=== PATIENT | male | born 1965 | race Caucasian/White ===

== ENCOUNTER 2021-08-01 13:05 | Inpatient (IN) | payer OTHER, SELFPAY ==
[2021-08-01] VITALS (14 sets, daily range): BP systolic 86–110; BP diastolic 43–68; PULSE 100–125; RESP 15–22; TEMP 35.7–36.7; O2SAT 91–98; BMI 41.8
--- NOTE | ~2021-08-01 | XR_ITS ---
EXAMINATION: XR CHEST CLINICAL INFORMATION: Shortness of breath COMPARISON: None TECHNIQUE: 2 views of the chest were obtained. FINDINGS: The right lung is hypoexpanded secondary to elevated right hemidiaphragm and right basilar atelectasis. The left lung is clear. The heart size is normal. No gross bony abnormality seen. XR/XR chest 2V IMPRESSION: Elevated right hemidiaphragm with right basilar atelectasis. Rest of the lungs are clear.
--- NOTE | ~2021-08-01 | US_ITS ---
EXAMINATION: US ABDOMEN LIMITED CLINICAL INFORMATION: EtOH. Ascites. Check for portal vein thrombosis.. COMPARISON: None TECHNIQUE: Real-time imaging of the right upper quadrant abdominal viscera. FINDINGS: Moderate amount of simple appearing free fluid is noted within the right upper quadrant around the liver. PANCREAS: Nonvisualized due to overlying bowel gas. LIVER: Abnormal liver, appear small, shows diffuse surface nodularity and increased echotexture, consistent with likely cirrhosis. No focal liver lesion no evidence of any biliary ductal dilatation. The portal vein is visualized and shows normal hepatopetal flow. GALLBLADDER: Collapsed. Apparent gallbladder wall thickening is present measuring 0.8 cm, given the presence of collapsed nature of the gallbladder and presence of ascites, likely within normal limits. No evidence of any gallstone. COMMON BILE DUCT: Nonvisualized likely decompressed. RIGHT KIDNEY: Normal. No hydronephrosis. No renal calculi or focal parenchymal lesions. The kidney measures 9.8 cm in maximum dimension. FREE FLUID: None. US/US abdomen limited IMPRESSION: 1. No sonographic evidence of portal vein thrombosis. 2. Abnormal liver showing features of cirrhosis. 3. Moderate amount of simple appearing free fluid within the right upper quadrant around the liver. 4. Collapsed gallbladder and decompressed biliary tree. 5. Nonvisualized pancreas.
--- NOTE | ~2021-08-01 | US_ITS ---
EXAMINATION: US ABDOMEN LIMITED CLINICAL INFORMATION: Evaluate for ascites. COMPARISON: Ultrasound abdomen limited 08/01/2021. TECHNIQUE: Real-time imaging of the right upper quadrant abdominal viscera. FINDINGS: PANCREAS: The pancreas is not well-visualized. LIVER: The liver is normal in size. The liver contour is lobulated. There is increased liver echogenicity. No focal hepatic lesion. There is no intrahepatic biliary duct dilatation seen. There is a small to moderate amount of ascites. GALLBLADDER: There is mild gallbladder wall thickening measuring 0.7 cm. The gallbladder is incompletely distended without evidence of stones, sludge, polyps, or pericholecystic fluid. COMMON BILE DUCT: Normal in caliber measuring 0.5 cm in diameter. RIGHT KIDNEY: Normal. No hydronephrosis. No renal calculi or focal parenchymal lesions. The kidney measures 12.0 cm in maximum dimension. FREE FLUID: None. US/US abdomen limited IMPRESSION: Hepatic steatosis with lobulated contour and ascites. Findings are suggestive of cirrhosis. Pancreas is not seen well. Thickened gallbladder wall without echogenic stones.
--- NOTE | ~2021-08-01 | XR_ITS ---
EXAMINATION: XR CHEST CLINICAL INFORMATION: Weakness COMPARISON: Previous chest x-ray January 2018 TECHNIQUE: Frontal view of the chest was obtained. FINDINGS: The patient is rotated to the right. There is elevation of the right hemidiaphragm and atelectasis at the right lung base. Cardiac and mediastinal contours are unremarkable. There is increased attenuation of the left lung compared to the right. It is uncertain if this is artifactual due to patient positioning or represent airspace disease or effusion. There is no pneumothorax. There are degenerative changes of the spine. There may be a dilated viscus below the left hemidiaphragm. XR/XR chest 1V IMPRESSION: Limited exam due to patient positioning. Elevated right hemidiaphragm and atelectasis at the right lung base. Diffuse increased attenuation of the left lung compared to the right, question artifactual versus due to airspace disease or effusion. Repeat chest x-ray should be considered.
--- NOTE | ~2021-08-01 | CT_ITS ---
EXAMINATION: CT HEAD WITHOUT CONTRAST CLINICAL INFORMATION: Falls. COMPARISON: Head CT 06/14/2018. TECHNIQUE: Contiguous axial imaging was performed from the skull base to vertex without intravenous administration of contrast. This CT examination was performed using dose optimization techniques as appropriate, variously including the following: *Automated exposure control *Adjustment of mA and/or kV according to patient size (this includes techniques or standardized protocols for targeted exams where dose is matched to indication/reason for exam; i.e. extremities or head) *Use of iterative reconstruction technique FINDINGS: Study is very limited by motion artifact. The motion degraded section of the intracranial compartment was rescanned. No definite acute intracranial findings accounting for artifact. No intracranial hemorrhage is appreciated. There is global cerebral volume loss and there is chronic microangiopathy. The basilar cisterns are preserved. No significant soft tissue findings. No definite acute fractures though assessment is limited by motion. CT/CT head/brain wo con IMPRESSION: Very limited motion degraded CT of the head. No definite acute intracranial findings accounting for motion artifact.
--- NOTE | ~2021-08-01 | US_ITS ---
EXAMINATION: US PARACENTESIS WITH IMAGING CLINICAL INFORMATION: Cirrhosis and ascites. COMPARISON: Previous abdominal ultrasound 08/01/2021. TECHNIQUE: Procedure and risks and benefits including bleeding, infection and low blood pressure were discussed with the patient and informed consent was obtained. The right lower quadrant was prepped and draped in the usual sterile fashion. The skin and soft tissues were anesthetized with 1% lidocaine plain. Using ultrasound guidance and a 5 Uzbek Rapid Centesis catheter, access to the ascitic fluid was obtained. 10.8 L of dark clear yellow fluid was removed. Diagnostic specimen was sent as requested by the ordering physician. The patient received 50 g of intravenous albumin during the procedure. FINDINGS: There is a large amount of ascites. US/US paracentesis abd w/image IMPRESSION: Ultrasound-guided paracentesis.
--- NOTE | ~2021-08-01 | US_ITS ---
EXAMINATION: US ULTRASOUND-GUIDED PARACENTESIS CLINICAL INFORMATION: Ascites. COMPARISON: Previous ultrasound exams from earlier this month. TECHNIQUE: Procedure and risks and benefits including bleeding, infection and low blood pressure were discussed with the patient and informed consent was obtained. The right lower quadrant was prepped and draped in the usual sterile fashion. The skin and soft tissues were anesthetized with 1% lidocaine plain. Using ultrasound guidance and a 5 Slovenian Rapid centesis catheter, access to the ascitic fluid was obtained. 8 L of yellow fluid was removed. No diagnostic specimen was sent. FINDINGS: There is a large amount of ascites. US/US paracentesis abd w/image IMPRESSION: Ultrasound-guided paracentesis.
--- NOTE | 2021-08-01 13:24 | ECG_ITS ---
Test Reason : WEAKNESS Blood Pressure : / mmHG Vent. Rate : 118 BPM Atrial Rate : 118 BPM P-R Int : 144 ms QRS Dur : 082 ms QT Int : 346 ms P-R-T Axes : 043 032 040 degrees QTc Int : 484 ms Sinus tachycardia Otherwise normal ECG When compared with ECG of 14-JUN-2018 20:05, QRS voltage has decreased Nonspecific T wave abnormality now evident in Lateral leads Referred By: Tracy Gan Electronically Signed By:JERRELL BLAIR MD
--- NOTE | 2021-08-01 13:33 | ED.AMS ---
HPI - Altered Mental Status General Chief Complaint: Altered Mental Status Stated Complaint: ?uti Time Seen by Provider: 08/01/21 13:23 Source: patient Mode of arrival: EMS Limitations: other (poor historian ) History of Present Illness HPI narrative: found on couch, 40 ounce ETOH bottles around him, can't get off couch, roommate called, covered in brown stool, dried blood in mouth - no known last well. denies falls today. states that he has had withdrawal seizures in the past MD complaint: weakness Onset (ago): unknown Severity: moderate Consistency of symptoms: unknown Context: alcohol abuse Associated symptoms: loss of appetite, malaise and weakness Related Data Home Medications Medication Instructions Recorded Confirmed folic acid 1 mg tablet 1 mg PO DAILY 08/01/21 08/01/21 lidocaine 5 % topical patch 1 patch TOPICAL DAILY 08/01/21 08/01/21 lisinopril 5 mg tablet 5 mg PO DAILY 08/01/21 08/01/21 metformin 500 mg tablet 1,000 mg PO BIDWM 08/01/21 08/01/21 omeprazole 20 mg capsule,delayed 20 mg PO DAILY@0630 08/01/21 08/01/21 release sertraline 25 mg tablet 12.5 mg DAILY 08/01/21 08/01/21 thiamine HCl (vitamin B1) 100 mg 1 tab PO DAILY 08/01/21 08/01/21 tablet Allergies Allergy/AdvReac Type Severity Reaction Status Date / Time acetaminophen [From PERCOCET] Allergy Severe AGITATION Verified 08/01/21 13:21 oxycodone [From PERCOCET] Allergy Severe AGITATION Verified 08/01/21 13:21 bee pollen [Bee Stings] Allergy Mild SWELLING Verified 08/01/21 13:21 lorazepam AdvReac Unknown AGITATION Verified 08/01/21 13:21 Review of Systems Review of Systems: Constitutional : No Fever, No Chills, pos Fatigue, pos Malaise ENT/Mouth : No sore throat, No Rhinorrhea Eyes: No Eye Pain, No Swelling, No Redness Cardiovascular : No Chest Pain, No SOB, No Dyspnea on Exertion, No Orthopnea, No Edema, No Palpitations Respiratory : No Cough, No Sputum, No Wheezing Gastrointestinal : pos Nausea, No Vomiting, No Diarrhea, No Constipation, No abdominal Pain, No Hematochezia, No Melena Genitourinary : No Dysuria, No Urinary Frequency, No Hematuria, Musculoskeletal : No joint pain, pos Myalgias, No Joint Swelling Skin : No Skin Lesions, No rash, pos change in skin color Neuro : pos Weakness, No Numbness, No Dizziness, No Headache Psych : No Anxiety/Panic, No Depression Heme/Lymph: No Bruising, No Bleeding,No Lymphadenopathy Endocrine : No Polyuria, No Polydipsia All other systems reviewed and are negative [facility] Past Medical History Attestation statement: The following information was validated with the patient. Medical History Alcohol abuse Withdrawal seizures Social History Social History Alcohol intake: current Alcohol type: beer Patient Tobacco Use Status: Current everyday Tobacco user Non Cigarette Tobacco use how long: chews tobacco Use of substances other than those prescribed or required for medical reasons: No Advance Directives: No Advance Directives Information Provided: No Physical Exam ED Vital Signs: Vital Signs - 24 hr 08/01/21 13:21 08/01/21 14:17 08/01/21 14:37 Temperature 98.0 F Pulse Rate 124 H 114 H 113 H Respiratory Rate 18 16 16 Blood Pressure 96/57 L 86/51 L 92/43 L Pulse Oximetry 96 97 95 08/01/21 15:13 08/01/21 15:48 Temperature Pulse Rate 105 H 107 H Respiratory Rate 18 18 Blood Pressure 103/49 L 100/66 Pulse Oximetry 96 BMI result Body Mass Index 41.8 Appearance: Alert. Oriented X3. Mild acute distress. Eyes: Pupils equal, round and reactive to light. Scleral icterus ENT: Pharynx very dry MM with dried brown brb in mouth but no lacerations or goodman on tongue most of blood on front teeth and gingiva Neck: Normal inspection. Neck supple. CVS: tachycardic heart rate and rhythm. Pulses normal. Respiratory: No respiratory distress. Breath sounds normal. Abdomen: Soft and non-tender. Large amount of ascites Skin: Skin warm and dry. pale jaundice skin color. Normal skin turgor. Extremities: No lower extremity edema. Scabs noted on toes and feet Neuro: Oriented X 3. No motor deficit. No sensory deficit. Course Course Course Narrative: holding lactulose at this time given guiac positive stools given ascites and presentation patient is obese - IBW is 68kg 30cc bolus = 2059 - 2500cc fluids ordered pressures responding to fluids, IV rocephin ordered, will perform diagnostic paracentesis at this time given low BPs BP improving but patient now agitated, did discuss diagnostic tap and he states no at this time. empiric ceftriaxone ordered will allow zamarripa finally given acute renal failure but it required a lot of discussion and he finally agreed message sent to GI - pending input ICU aware given BP improved does not need ICU at this time, no bleeding here H/H stable. rectal lactulose ordered MDM - Altered Mental Status MDM Narrative Medical decision making narrative: 55 yo male with hx of ETOH abuse and alcohol withdrawal seizures here with dried blood in mouth unsure if he had a seizure, covered in feces (brown) large amount of ascites states this is new no prior taps. He denies trauma. Reportedly roommate called because he could no longer get off the couch. The patient cannot tell me when he last drank. At this time labs, cultures, lactic acid, CXR, CT head for trauma, US of RUQ for PV thrombosis, IV protonix and drip type and screen ordered, initial BP low fluids ordered but patient laying on side and likely lower than actual, paracentesis diagnostic planned to rule out SBP. Will consult GI likely. Anticipate admission. Lab Data Result diagrams: 08/01/21 13:30 08/01/21 13:30 Labs: Lab Results 08/01/21 08/01/21 08/01/21 Range/Units 13:30 13:30 13:30 WBC 7.3 (4.8-10.8) X10*3/uL RBC 2.96 L (4.60-5.80) X10*6/uL Hgb 11.4 L (14.0-18.0) g/dl Hct 32.3 L (42.0-52.0) % MCV 109.1 H (80.0-98.0) fL MCH 38.5 H (27.0-33.0) pg MCHC 35.3 (31.0-36.0) g/dl RDW 16.8 H (11.0-16.0) % Plt Count 102 L (160-400) X10*3/uL MPV 10.0 (9.4-12.4) fL Immature Gran % (Auto) 0.3 (0.0-0.4) % Neut % (Auto) 72.6 (45-73) % Lymph % (Auto) 14.9 L (20-40) % [place] % (Auto) 10.7 (2-11) % Eos % (Auto) 0.8 (0-4) % Baso % (Auto) 0.7 (0-2) % Lymph # (Auto) 1.1 L (1.2-4.9) X10*3/uL [place] # (Auto) 0.8 (0.1-1.2) X10*3/uL Eos # (Auto) 0.1 (0.0-0.4) X10*3/uL Baso # (Auto) 0.1 (0.0-0.2) X10*3/uL Abs Immat Gran (auto) 0.02 (0.00-0.03) X10*3/uL Absolute Neuts (auto) 5.3 (2.0-8.3) x10*3/uL Absolute Nucleated RBC 0.000 (0.0-0.012) X10*3/uL Nucleated RBC % (auto) 0.0 (0.0-0.2) /100WBC PT (9.9-13.0) SEC INR (0.9-1.1) APTT (24.1-38.0) SEC O2 Saturation ABG pH at Pt Temp ABG pH (Temp Correct) ABG pCO2 at Pt Temp ABG pCO2 (Temp Corrct ABG pO2 at Pt Temp ABG pO2 (Temp Correct ABG HCO3 ABG Base Excess (Actual) VBG pH (7.32-7.43) VBG pCO2 mmHg VBG pO2 mmHg VBG HCO3 (22-26) mmol/L VBG O2 Saturation % VBG Base Excess mmol/L Sodium 135 (135-145) mmol/L Potassium 4.1 (3.3-5.1) mmol/L Chloride 96 (96-108) mmol/L Carbon Dioxide 25 (22-29) mmol/L Anion Gap 18 (12-20) BUN 44 H (9-16) mg/dL Creatinine 2.44 H (0.5-1.4) mg/dL Estim Creat Clear Calc 44.5 Estimated GFR 28 Random Glucose 113 (60-115) mg/dL Lactic Acid (0.5-2.0) mmol/L Calcium 8.4 (8.4-10.2) mg/dL Magnesium 1.5 L (1.6-2.6) mg/dL Total Bilirubin 7.8 H (0.0-1.0) mg/dL Direct Bilirubin 5.3 H (0.0-0.5) mg/dL AST 103 H (5-37) U/L ALT 39 (0-40) U/L Alkaline Phosphatase 160 H (39-117) U/L Ammonia 124 H (13-55) umol/L Total Creatine Kinase 489 H (38-174) U/L Troponin I High Sens (<3.5-35.0) ng/L Total Protein 7.1 (6.5-8.0) g/dL Albumin 2.1 L (3.5-5.0) g/dL Lipase 26 (8-78) U/L Stool Occult Blood (NEGATIVE) Salicylates < 5.0 L (15-30) mg/dL Acetaminophen 1 (<30) mcg/mL Ethyl Alcohol mg/dL COVID-19 ([facility]IKA) (Negative) COVID-19 Clin Com Blood Type Antibody Screen 08/01/21 08/01/21 08/01/21 Range/Units 13:30 13:30 13:30 WBC (4.8-10.8) X10*3/uL RBC (4.60-5.80) X10*6/uL Hgb (14.0-18.0) g/dl Hct (42.0-52.0) % MCV (80.0-98.0) fL MCH (27.0-33.0) pg MCHC (31.0-36.0) g/dl RDW (11.0-16.0) % Plt Count (160-400) X10*3/uL MPV (9.4-12.4) fL Immature Gran % (Auto) (0.0-0.4) % Neut % (Auto) (45-73) % Lymph % (Auto) (20-40) % [place] % (Auto) (2-11) % Eos % (Auto) (0-4) % Baso % (Auto) (0-2) % Lymph # (Auto) (1.2-4.9) X10*3/uL [place] # (Auto) (0.1-1.2) X10*3/uL Eos # (Auto) (0.0-0.4) X10*3/uL Baso # (Auto) (0.0-0.2) X10*3/uL Abs Immat Gran (auto) (0.00-0.03) X10*3/uL Absolute Neuts (auto) (2.0-8.3) x10*3/uL Absolute Nucleated RBC (0.0-0.012) X10*3/uL Nucleated RBC % (auto) (0.0-0.2) /100WBC PT 18.9 H (9.9-13.0) SEC INR 1.6 H (0.9-1.1) APTT 32.7 (24.1-38.0) SEC O2 Saturation ABG pH at Pt Temp ABG pH (Temp Correct) ABG pCO2 at Pt Temp ABG pCO2 (Temp Corrct ABG pO2 at Pt Temp ABG pO2 (Temp Correct ABG HCO3 ABG Base Excess (Actual) VBG pH (7.32-7.43) VBG pCO2 mmHg VBG pO2 mmHg VBG HCO3 (22-26) mmol/L VBG O2 Saturation % VBG Base Excess mmol/L Sodium (135-145) mmol/L Potassium (3.3-5.1) mmol/L Chloride (96-108) mmol/L Carbon Dioxide (22-29) mmol/L Anion Gap (12-20) BUN (9-16) mg/dL Creatinine (0.5-1.4) mg/dL Estim Creat Clear Calc Estimated GFR Random Glucose (60-115) mg/dL Lactic Acid 3.9 H* (0.5-2.0) mmol/L Calcium (8.4-10.2) mg/dL Magnesium (1.6-2.6) mg/dL Total Bilirubin (0.0-1.0) mg/dL Direct Bilirubin (0.0-0.5) mg/dL AST (5-37) U/L ALT (0-40) U/L Alkaline Phosphatase (39-117) U/L Ammonia (13-55) umol/L Total Creatine Kinase (38-174) U/L Troponin I High Sens 4.7 (<3.5-35.0) ng/L Total Protein (6.5-8.0) g/dL Albumin (3.5-5.0) g/dL Lipase (8-78) U/L Stool Occult Blood (NEGATIVE) Salicylates (15-30) mg/dL Acetaminophen (<30) mcg/mL Ethyl Alcohol mg/dL COVID-19 ([facility]) (Negative) COVID-19 Clin Com Blood Type Antibody Screen 08/01/21 08/01/21 08/01/21 Range/Units 13:30 13:30 13:34 WBC (4.8-10.8) X10*3/uL RBC (4.60-5.80) X10*6/uL Hgb (14.0-18.0) g/dl Hct (42.0-52.0) % MCV (80.0-98.0) fL MCH (27.0-33.0) pg MCHC (31.0-36.0) g/dl RDW (11.0-16.0) % Plt Count (160-400) X10*3/uL MPV (9.4-12.4) fL Immature Gran % (Auto) (0.0-0.4) % Neut % (Auto) (45-73) % Lymph % (Auto) (20-40) % [place] % (Auto) (2-11) % Eos % (Auto) (0-4) % Baso % (Auto) (0-2) % Lymph # (Auto) (1.2-4.9) X10*3/uL [place] # (Auto) (0.1-1.2) X10*3/uL Eos # (Auto) (0.0-0.4) X10*3/uL Baso # (Auto) (0.0-0.2) X10*3/uL Abs Immat Gran (auto) (0.00-0.03) X10*3/uL Absolute Neuts (auto) (2.0-8.3) x10*3/uL Absolute Nucleated RBC (0.0-0.012) X10*3/uL Nucleated RBC % (auto) (0.0-0.2) /100WBC PT (9.9-13.0) SEC INR (0.9-1.1) APTT (24.1-38.0) SEC O2 Saturation Cancelled ABG pH at Pt Temp Cancelled ABG pH (Temp Correct) Cancelled ABG pCO2 at Pt Temp Cancelled ABG pCO2 (Temp Corrct Cancelled ABG pO2 at Pt Temp Cancelled ABG pO2 (Temp Correct Cancelled ABG HCO3 Cancelled ABG Base Excess (Actual) Cancelled VBG pH 7.45 H (7.32-7.43) VBG pCO2 37 mmHg VBG pO2 56 mmHg VBG HCO3 26 (22-26) mmol/L VBG O2 Saturation 80.0 % VBG Base Excess 2.7 mmol/L Sodium (135-145) mmol/L Potassium (3.3-5.1) mmol/L Chloride (96-108) mmol/L Carbon Dioxide (22-29) mmol/L Anion Gap (12-20) BUN (9-16) mg/dL Creatinine (0.5-1.4) mg/dL Estim Creat Clear Calc Estimated GFR Random Glucose (60-115) mg/dL Lactic Acid (0.5-2.0) mmol/L Calcium (8.4-10.2) mg/dL Magnesium (1.6-2.6) mg/dL Total Bilirubin (0.0-1.0) mg/dL Direct Bilirubin (0.0-0.5) mg/dL AST (5-37) U/L ALT (0-40) U/L Alkaline Phosphatase (39-117) U/L Ammonia (13-55) umol/L Total Creatine Kinase (38-174) U/L Troponin I High Sens (<3.5-35.0) ng/L Total Protein (6.5-8.0) g/dL Albumin (3.5-5.0) g/dL Lipase (8-78) U/L Stool Occult Blood (NEGATIVE) Salicylates (15-30) mg/dL Acetaminophen (<30) mcg/mL Ethyl Alcohol < 10 mg/dL COVID-19 ([facility]IKA) Negative (Negative) COVID-19 Clin Com See Note Blood Type Antibody Screen 08/01/21 08/01/21 Range/Units 14:07 14:59 WBC (4.8-10.8) X10*3/uL RBC (4.60-5.80) X10*6/uL Hgb (14.0-18.0) g/dl Hct (42.0-52.0) % MCV (80.0-98.0) fL MCH (27.0-33.0) pg MCHC (31.0-36.0) g/dl RDW (11.0-16.0) % Plt Count (160-400) X10*3/uL MPV (9.4-12.4) fL Immature Gran % (Auto) (0.0-0.4) % Neut % (Auto) (45-73) % Lymph % (Auto) (20-40) % [place] % (Auto) (2-11) % Eos % (Auto) (0-4) % Baso % (Auto) (0-2) % Lymph # (Auto) (1.2-4.9) X10*3/uL [place] # (Auto) (0.1-1.2) X10*3/uL Eos # (Auto) (0.0-0.4) X10*3/uL Baso # (Auto) (0.0-0.2) X10*3/uL Abs Immat Gran (auto) (0.00-0.03) X10*3/uL Absolute Neuts (auto) (2.0-8.3) x10*3/uL Absolute Nucleated RBC (0.0-0.012) X10*3/uL Nucleated RBC % (auto) (0.0-0.2) /100WBC PT (9.9-13.0) SEC INR (0.9-1.1) APTT (24.1-38.0) SEC O2 Saturation ABG pH at Pt Temp ABG pH (Temp Correct) ABG pCO2 at Pt Temp ABG pCO2 (Temp Corrct ABG pO2 at Pt Temp ABG pO2 (Temp Correct ABG HCO3 ABG Base Excess (Actual) VBG pH (7.32-7.43) VBG pCO2 mmHg VBG pO2 mmHg VBG HCO3 (22-26) mmol/L VBG O2 Saturation % VBG Base Excess mmol/L Sodium (135-145) mmol/L Potassium (3.3-5.1) mmol/L Chloride (96-108) mmol/L Carbon Dioxide (22-29) mmol/L Anion Gap (12-20) BUN (9-16) mg/dL Creatinine (0.5-1.4) mg/dL Estim Creat Clear Calc Estimated GFR Random Glucose (60-115) mg/dL Lactic Acid (0.5-2.0) mmol/L Calcium (8.4-10.2) mg/dL Magnesium (1.6-2.6) mg/dL Total Bilirubin (0.0-1.0) mg/dL Direct Bilirubin (0.0-0.5) mg/dL AST (5-37) U/L ALT (0-40) U/L Alkaline Phosphatase (39-117) U/L Ammonia (13-55) umol/L Total Creatine Kinase (38-174) U/L Troponin I High Sens (<3.5-35.0) ng/L Total Protein (6.5-8.0) g/dL Albumin (3.5-5.0) g/dL Lipase (8-78) U/L Stool Occult Blood POSITIVE (NEGATIVE) Salicylates (15-30) mg/dL Acetaminophen (<30) mcg/mL Ethyl Alcohol mg/dL COVID-19 ([facility]) (Negative) COVID-19 Clin Com Blood Type O Negative Antibody Screen NEGATIVE ECG Data ECG #1: Attestation: I personally reviewed and interpreted this ECG as follows: ECG interpretation date: 08/01/21 ECG interpretation time: 13:57 Interpretation: Rate: 118 Rhythm: sinus tachycardia [place]: normal Normal P waves. Normal MAITE. Normal QRS complex. ST T wave : nonspecific no CLARA qTC: prolonged prior studies: no acute ischemia The study has been interpreted contemporaneously by me. . Critical Care Time Critical Care Time Critical Care Time: Yes Total Critical Care Time: 60 Attestation: medical consult, IVF x 2L, IV protonix, reassessments I attest to this time spent taking care of the patient Discharge Plan Discharge Clinical Impression: Acidosis, lactic, Acute hepatic encephalopathy, SAUL (acute kidney injury), Elevated liver enzymes Alcohol withdrawal Qualifiers: Complication of substance-induced condition: uncomplicated Qualified Code(s): F10.230 - Alcohol dependence with withdrawal, uncomplicated Patient Disposition: Admitted As Inpatient
[2021-08-01 13:39] LABS: MANUAL DIFF FLAG NO
[2021-08-01 13:42] LABS: Basophils Absolute Auto 0.1 X10*3/uL (0.0-0.2); Basophils Percent Auto 0.7 % (0-2); Eosinophils Absolute Auto 0.1 X10*3/uL (0.0-0.4); Eosinophils Percent Auto 0.8 % (0-4); Hematocrit 32.3 % (42.0-52.0); Hemoglobin 11.4 g/dl (14.0-18.0); Imm Gran Abs Auto 0.02 X10*3/uL (0.00-0.03); Imm Gran Pct Auto 0.3 % (0.0-0.4); Lymphocytes Absolute Auto 1.1 X10*3/uL (1.2-4.9); Lymphocytes Percent Auto 14.9 % (20-40); Mean Corpuscular HGB Conc 35.3 g/dl (31.0-36.0); Mean Corpuscular Hemoglobin 38.5 pg (27.0-33.0); Mean Corpuscular Volume 109.1 fL (80.0-98.0); Monocytes Absolute Auto 0.8 X10*3/uL (0.1-1.2); Monocytes Percent Auto 10.7 % (2-11); Neutrophils Absolute Auto 5.3 x10*3/uL (2.0-8.3); Neutrophils Percent Auto 72.6 % (45-73); Platelet Count 102 X10*3/uL (160-400); Red Blood Count 2.96 X10*6/uL (4.60-5.80); Red Cell Distribution Width 16.8 % (11.0-16.0); White Blood Count 7.3 X10*3/uL (4.8-10.8)
[2021-08-01 13:45] LABS: Ammonia 124 umol/L (13-55)
[2021-08-01] MEDS: 0.9 % Sodium Chloride 1,000 ML 999 ML IVCONT ×2 (13:47→15:47)
[2021-08-01] MEDS: Pantoprazole Sodium 40 MG/10 ML VIAL IVPUSH ×2 (13:47→19:09)
[2021-08-01 13:52] LABS: Lactic Acid 3.9 mmol/L (0.5-2.0)
[2021-08-01 13:53] LABS: Ethanol < 10 mg/dL
[2021-08-01] MEDS: Magnesium Sulfate/H2O 2 GM/50 ML PIGGYBACK IV (13:55)
[2021-08-01] MEDS: Albumin Human 25 % 100 ML IV ×3 (13:56→22:59)
[2021-08-01] MEDS: Thiamine HCL 200 MG in 0.9 % Sodium Chloride 100 ML 204 MG IV (13:57)
[2021-08-01 13:58] LABS: Acetaminophen LAB 1 mcg/mL (<30); Alanine Aminotransferase 39 U/L (0-40); Albumin Level 2.1 g/dL (3.5-5.0); Alkaline Phosphatase 160 U/L (39-117); Anion Gap 18 (12-20); Aspartate Amino Transferase 103 U/L (5-37); Bilirubin Direct 5.3 mg/dL (0.0-0.5); Bilirubin Total 7.8 mg/dL (0.0-1.0); Blood Urea Nitrogen 44 mg/dL (9-16); Calcium 8.4 mg/dL (8.4-10.2); Carbon Dioxide 25 mmol/L (22-29); Chloride 96 mmol/L (96-108); Creatinine Clr Calc Pharmacy 44.5; Estimated Glomerular Filt Rate 28; Glucose Random 113 mg/dL (60-115); Lipase 26 U/L (8-78); Magnesium 1.5 mg/dL (1.6-2.6); Potassium 4.1 mmol/L (3.3-5.1); Salicylate < 5.0 mg/dL (15-30); Sodium 135 mmol/L (135-145); Total Protein 7.1 g/dL (6.5-8.0)
[2021-08-01 14:01] LABS: INTERNATIONAL NORM RATIO 1.6 (0.9-1.1); Prothrombin Time 18.9 SEC (9.9-13.0)
[2021-08-01 14:04] LABS: Partial Thromboplastin Time 32.7 SEC (24.1-38.0); Troponin-I High Sensitivity 4.7 ng/L (<3.5-35.0)
[2021-08-01 14:06] LABS: COVID-19 Test Negative (Negative); IDNOW Serial# 9DB6401D
[2021-08-01 14:19] LABS: OBS Int Ctl Valid YES; OBS1 POSITIVE (NEGATIVE)
--- NOTE | 2021-08-01 14:19 | PC.NURSE ---
Pt comes to ED unkempt, abd distended and firm. Skin/sclera jaundiced. Hypotensive. Dried bld notd around mouth however pt denies and states its chewing tobacco. Second IV line established, medicated as ordered. sinus tach on tele. Dried black wounds noted to b/l feet.
[2021-08-01] MEDS: PHENobarbitaL 200 MG, PHENobarbitaL 15 MG 215 MG PO (14:29)
[2021-08-01 14:34] LABS: VBG Base Excess 2.7 mmol/L; VBG HCO3 26 mmol/L (22-26); VBG pCO2 37 mmHg; VBG pH 7.45 (7.32-7.43); VBG pO2 56 mmHg
[2021-08-01 14:35] LABS: Venous Blood Gas Refer to POC result
--- NOTE | 2021-08-01 14:42 | PC.NURSE ---
Phelbotomy at bedside attempting second set blood cx and type/screen as first draw hemolyzed. Pt agitated easily and reassured frequently with some effect.
--- NOTE | 2021-08-01 15:05 | PHA.MEDREC ---
MED REC COMPLETE, BASED ON PHARMACY CLAIM HISTORY ONLY, PATIENT A POOR HISTORIAN Pharmacy Consult ? Medication Reconciliation Pharmacy has completed the medication reconciliation.
[2021-08-01] MEDS: Pantoprazole Sodium 80 MG in 0.9 % Sodium Chloride 80 ML 10 MG IV (15:24)
[2021-08-01] MEDS: cefTRIAXone sodium 1 GM in 0.9 % Sodium Chloride 50 ML IV (15:30)
[2021-08-01] MEDS: 0.9 % Sodium Chloride 500 ML IV (15:44)
--- NOTE | 2021-08-01 17:32 | P.HPHOSP_ITS ---
History of Present Illness Date of Service: 08/01/21 Attending physician on admission: [facility] Chief Complaint: weakness this is a 55-year-old male was brought to the emergency department by EMS after his roommate called due to weakness. EMS found him covered in stool and urine with empty alcohol bottles all around. He was lethargic but arousable to verbal stimuli. He was initially hypotensive on arrival with blood pressure in 80s. he was noted to have dried blood in his mouth. digital rectal exam revealed brown stool that was heme positive. LFTs were elevated, ammonia level was elevated at 124, lactic acid 3.9, creatinine 2.44. CPK 489, magnesium 1.5. He was treated with IVF, IV magnesium, IVF and albumin. He was empirically covered for SBP with IV ceftriaxone. He denies any abdominal pain at this time. He is able to answer some simple questions. Patient has a history of alcohol abuse with withdrawal seizures. He is unsure if he had a seizure. [facility] the decision was made to admit him to the hospital for further management. Review of Systems Review of Systems: he is able to answer questions, but given lethargy, unclear how reliable of a historian he is Yes all other systems are reviewed and are negative Constitutional: Constitutional: Denies chills and Denies fever(s) Cardiovascular: Cardiovascular: Denies chest pain, Denies palpitations and Denies dyspnea Respiratory: Respiratory: Denies cough and Denies dyspnea Gastrointestinal: Gastrointestinal: Denies abdominal pain, Denies nausea and Denies vomiting Endocrine: Endocrine: Denies palpitations [facility] Medical History Alcohol abuse Diabetes Hypertension Liver cirrhosis Withdrawal seizures Pertinent family history: previous notes indicate that his father had a history of heart disease in his brother had a history of lung cancer Social History Alcohol intake: current Alcohol type: beer Patient Tobacco Use Status: Current everyday Tobacco user Non Cigarette Tobacco use how long: chews tobacco Use of substances other than those prescribed or required for medical reasons: No Advance Directives: No Advance Directives Information Provided: No Meds Allergies Allergy/AdvReac Type Severity Reaction Status Date / Time acetaminophen [From PERCOCET] Allergy Severe AGITATION Verified 08/01/21 13:21 oxycodone [From PERCOCET] Allergy Severe AGITATION Verified 08/01/21 13:21 bee pollen [Bee Stings] Allergy Mild SWELLING Verified 08/01/21 13:21 lorazepam AdvReac Unknown AGITATION Verified 08/01/21 13:21 Active Medications: Current Medications Docusate Sodium (Docusate Sodium 100 Mg Capsule) 100 mg PO DAILY PRN PRN Reason: Constipation Folic Acid (Folic Acid 1 Mg Tablet) 1 mg PO DAILY [facility] Pantoprazole Sodium 80 mg/ (Sodium Chloride) 100 mls @ 10 mls/hr IV .Q10H [facility] Last Admin: 08/01/21 15:24 Dose: 8 mg/hr, 10 mls/hr Documented by: Pharmacy Consult (Consult Rx Perform Med Rec) 1 each MISCELLANE ONCE PRN PRN Reason: Consult order Pharmacy Consult (Consult Rx Etoh Phenob Po Dose) 1 each MISCELLANE ONCE PRN; Protocol PRN Reason: Consult order Phenobarbital 100 mg/ (Phenobarbital 60 mg) 160 mg PO Q3H [facility] Stop: 08/01/21 20:01 Phenobarbital (Phenobarbital 15 Mg Tablet) 45 mg PO BID [facility] Stop: 08/03/21 21:01 Phenobarbital (Phenobarbital 15 Mg Tablet) 15 mg PO BID [facility] Stop: 08/05/21 21:01 Phenobarbital (Phenobarbital 15 Mg Tablet) 15 mg PO DAILY [facility] Stop: 08/07/21 09:01 Sodium Chloride (0.9 % Sodium Chloride Flush 3 Ml Syringe) 3 ml IVFLUSH QSHIFT [facility] Home Medications Medication Instructions Recorded Confirmed Last Taken Type folic acid 1 mg tablet 1 mg PO DAILY 08/01/21 08/01/21 Unknown History lidocaine 5 % topical patch 1 patch TOPICAL DAILY 08/01/21 08/01/21 Unknown History lisinopril 5 mg tablet 5 mg PO DAILY 08/01/21 08/01/21 Unknown History metformin 500 mg tablet 1,000 mg PO BIDWM 08/01/21 08/01/21 Unknown History omeprazole 20 mg capsule,delayed 20 mg PO DAILY@0630 08/01/21 08/01/21 Unknown History release sertraline 25 mg tablet 12.5 mg DAILY 08/01/21 08/01/21 Unknown History thiamine HCl (vitamin B1) 100 mg 1 tab PO DAILY 08/01/21 08/01/21 Unknown History tablet Physical Exam Vital Signs and Narrative: Vital Signs: Last Vital Signs Temp 98.0 F 08/01/21 13:21 Pulse 107 H 08/01/21 15:48 Resp 18 08/01/21 15:48 BP 100/66 08/01/21 15:48 Pulse Ox 96 08/01/21 15:13 BMI result Body Mass Index 41.8 Const: Other: arousable to verbal stimuli, lethargic he is able to state his name and that he is in [facility] General: no acu te distress and lethargic Nutritional Appearance: obese Or ientation/consciousness: oriented to person, oriented to place and lethargic Eyes: Pupils: Equal, round and reactive pupils present Resp: Effort & Inspection: normal respiratory effort and able to speak in complete sentences Auscultation: clear to auscultation bilaterally Cardio: Rate: tachycardic Heart sounds: S1 normal heart sound present and S2 normal heart sound present GI: Other: softly distended; appears non-tender; +ascites Inspection: Yes distended Palpation (GI): Soft to palpation Rectal Exam - Male: Yes heme positive stool Skin: Other: dry scabs multiple toes Neuro: General: oriented to person and oriented to place Cranial nerves: Yes Equal, round and reactive pupils present Motor exam (neuro): Asterixis during motor activity present Extrem: General: Yes no pedal edema Results Labs CBC and Chem 7: 08/01/21 13:30 08/01/21 13:30 Labs: Laboratory Results - last 24 hr 08/01/21 08/01/21 08/01/21 13:30 13:30 13:30 MCV 109.1 H MCH 38.5 H MCHC 35.3 RDW 16.8 H Plt Count 102 L MPV 10.0 Immature Gran % (Auto) 0.3 Neut % (Auto) 72.6 Lymph % (Auto) 14.9 L Cataño % (Auto) 10.7 Eos % (Auto) 0.8 Baso % (Auto) 0.7 Lymph # (Auto) 1.1 L [place] # (Auto) 0.8 Eos # (Auto) 0.1 Baso # (Auto) 0.1 Abs Immat Gran (auto) 0.02 Absolute Neuts (auto) 5.3 Absolute Nucleated RBC 0.000 Nucleated RBC % (auto) 0.0 PT INR APTT O2 Saturation ABG pH at Pt Temp ABG pH (Temp Correct) ABG pCO2 at Pt Temp ABG pCO2 (Temp Corrct ABG pO2 at Pt Temp ABG pO2 (Temp Correct ABG HCO3 ABG Base Excess (Actual) VBG pH VBG pCO2 VBG pO2 VBG HCO3 VBG O2 Saturation VBG Base Excess Anion Gap 18 Estim Creat Clear Calc 44.5 Estimated GFR 28 Random Glucose 113 Lactic Acid Calcium 8.4 Magnesium 1.5 L Total Bilirubin 7.8 H Direct Bilirubin 5.3 H AST 103 H ALT 39 Alkaline Phosphatase 160 H Ammonia 124 H Total Creatine Kinase 489 H Troponin I High Sens Total Protein 7.1 Albumin 2.1 L Lipase 26 Stool Occult Blood Salicylates < 5.0 L Acetaminophen 1 Ethyl Alcohol COVID-19 (JESIKA) COVID-[facility] Blood Type Antibody Screen 08/01/21 08/01/21 08/01/21 13:30 13:30 13:30 MCV MCH MCHC RDW Plt Count MPV Immature Gran % (Auto) Neut % (Auto) Lymph % (Auto) Cata[place] % (Auto) Eos % (Auto) Baso % (Auto) Lymph # (Auto) [place] # (Auto) Eos # (Auto) Baso # (Auto) Abs Immat Gran (auto) Absolute Neuts (auto) Absolute Nucleated RBC Nucleated RBC % (auto) PT 18.9 H INR 1.6 H APTT 32.7 O2 Saturation ABG pH at Pt Temp ABG pH (Temp Correct) ABG pCO2 at Pt Temp ABG pCO2 (Temp Corrct ABG pO2 at Pt Temp ABG pO2 (Temp Correct ABG HCO3 ABG Base Excess (Actual) VBG pH VBG pCO2 VBG pO2 VBG HCO3 VBG O2 Saturation VBG Base Excess Anion Gap Estim Creat Clear Calc Estimated GFR Random Glucose Lactic Acid 3.9 H* Calcium Magnesium Total Bilirubin Direct Bilirubin AST ALT Alkaline Phosphatase Ammonia Total Creatine Kinase Troponin I High Sens 4.7 Total Protein Albumin Lipase Stool Occult Blood Salicylates Acetaminophen Ethyl Alcohol COVID-19 (JESIKA) COVID-19 [facility] Blood Type Antibody Screen 08/01/21 08/01/21 08/01/21 13:30 13:30 13:34 MCV MCH MCHC RDW Plt Count MPV Immature Gran % (Auto) Neut % (Auto) Lymph % (Auto) Cata[place] % (Auto) Eos % (Auto) Baso % (Auto) Lymph # (Auto) [place] # (Auto) Eos # (Auto) Baso # (Auto) Abs Immat Gran (auto) Absolute Neuts (auto) Absolute Nucleated RBC Nucleated RBC % (auto) PT INR APTT O2 Saturation Cancelled ABG pH at Pt Temp Cancelled ABG pH (Temp Correct) Cancelled ABG pCO2 at Pt Temp Cancelled ABG pCO2 (Temp Corrct Cancelled ABG pO2 at Pt Temp Cancelled ABG pO2 (Temp Correct Cancelled ABG HCO3 Cancelled ABG Base Excess (Actual) Cancelled VBG pH 7.45 H VBG pCO2 37 VBG pO2 56 VBG HCO3 26 VBG O2 Saturation 80.0 VBG Base Excess 2.7 Anion Gap Estim Creat Clear Calc Estimated GFR Random Glucose Lactic Acid Calcium Magnesium Total Bilirubin Direct Bilirubin AST ALT Alkaline Phosphatase Ammonia Total Creatine Kinase Troponin I High Sens Total Protein Albumin Lipase Stool Occult Blood Salicylates Acetaminophen Ethyl Alcohol < 10 COVID-19 (JESIKA) Negative COVID-19 Clin Com See Note Blood Type Antibody Screen 08/01/21 08/01/21 14:07 14:59 MCV MCH MCHC RDW Plt Count MPV Immature Gran % (Auto) Neut % (Auto) Lymph % (Auto) Cata[place] % (Auto) Eos % (Auto) Baso % (Auto) Lymph # (Auto) [place] # (Auto) Eos # (Auto) Baso # (Auto) Abs Immat Gran (auto) Absolute Neuts (auto) Absolute Nucleated RBC Nucleated RBC % (auto) PT INR APTT O2 Saturation ABG pH at Pt Temp ABG pH (Temp Correct) ABG pCO2 at Pt Temp ABG pCO2 (Temp Corrct ABG pO2 at Pt Temp ABG pO2 (Temp Correct ABG HCO3 ABG Base Excess (Actual) VBG pH VBG pCO2 VBG pO2 VBG HCO3 VBG O2 Saturation VBG Base Excess Anion Gap Estim Creat Clear Calc Estimated GFR Random Glucose Lactic Acid Calcium Magnesium Total Bilirubin Direct Bilirubin AST ALT Alkaline Phosphatase Ammonia Total Creatine Kinase Troponin I High Sens Total Protein Albumin Lipase Stool Occult Blood POSITIVE Salicylates Acetaminophen Ethyl Alcohol COVID-19 (JESIKA) COVID-19 Clin Com Blood Type O Negative Antibody Screen NEGATIVE Imaging Radiologist's Impressions: Impressions Chest X-Ray 08/01/21 15:10 IMPRESSION: Limited exam due to patient positioning. Elevated right hemidiaphragm and atelectasis at the right lung base. Diffuse increased attenuation of the left lung compared to the right, question artifactual versus due to airspace disease or effusion. Repeat chest x-ray should be considered. Head CT 08/01/21 15:26 IMPRESSION: Very limited motion degraded CT of the head. No definite acute intracranial findings accounting for motion artifact. Abdomen Ultrasound 08/01/21 15:33 IMPRESSION: 1. No sonographic evidence of portal vein thrombosis. 2. Abnormal liver showing features of cirrhosis. 3. Moderate amount of simple appearing free fluid within the right upper quadrant around the liver. 4. Collapsed gallbladder and decompressed biliary tree. 5. Nonvisualized pancreas. Assessment and Plan (1) Acute hepatic encephalopathy: Status: Acute (2) SAUL (acute kidney injury): Status: Acute Plan This is a 55 year old male with history of alcohol dependence, withdrawal sei zures, liver cirrhosis, DM, HTN who was brought to the emergency department by EMS due to lethargy found to have numerous abnormalities including decompensated liver failure, ascites, SAUL decompensated liver cirrhosis with ascites and thrombocytopenia cirrhosis secondary to alcohol abuse meld score 29 Maddrey discriminant function 34.9, he does qualify for steroids but given concern over GI bleeding will hold off for now follow Liver function GI consult pending declining paracentesis at this time Probable GI bleed INR elevated, guiac positive; dried blood in mouth no other overt bleeding noted H/H 11.4/32.3 IV PPI, IVF, clear liquid diet GI consult pending follow CBC Toxic Metabolic encephalopathy/ hepatic encephalopathy ammonia 124 and possible Wernicke encephalopathy lactulose retention enema ordered in ED follow ammonia level will continue po lactulose; titrate to 2-3 BM daily thiamine 500 tid x2 days and then 250 daily for 5 days SAUL likely prerenal if no significant improvement in am would consider imaging IVF avoid nephrotoxins follow renal function alcohol dependence with high risk for withdrawal history of alcohol withdrawal seizures in the past continue phenobarbital protocol seizure precautions supplementation with thiamine, folate consider care team evaluation prior to discharge follow-up electrolytes high dose thiamine empirically for possible Wernicke encephalopathy coagulopathy r/t liver disease INR 1.6 received vit k in ED follow INR mild rhabdo cpk 489 IVF follow CPK hypoagnesemia r/t etoh abuse replace and follow Elevated lactic acid secondary to dehydration/ liver dysfunction/ metformin No evidence of sepsis IV fluid DM hold metformin SSI, POCs mood hold sertraline for now can resume when more awake HTN hold lisinopril for SAUL, hypotension dvt ppx - mechanical devices code status - presumed full code attending - dr. darby given in multiple acute medical issues, high-risk for alcohol withdrawal decompensation patient will likely require 2 midnight stays in the hospital for management of acute decompensated liver cirrhosis, alcohol withdrawal, SAUL among others. seen by reservations specialist while in ED, did not meet criteria for ICU level care at that time. Quality Stroke Does the patient have a stroke diagnosis?: No VTE Prior VTE?: No VTE Risk Level:: Medical - moderate - high VTE Device Contraindication: N/A - Device Ordered VTE Drug Contraindication: Treatment Not Indicated
[2021-08-01] MEDS: Lactulose 20 GM/30 ML SOLUTION 200 GM PR (17:41)
[2021-08-01] MEDS: PHENobarbitaL 100 MG, PHENobarbitaL 60 MG 160 MG PO (17:42)
[2021-08-01 18:08] LABS: Appearance Urine CLEAR; Color Urine DK YELLOW; Glucose Urine UA NEG (NEG); Leukocyte Esterase Urine NEG (NEG); Nitrite Urine POS (NEG); PH 5.5 (5.0-8.0); Specific Gravity - Urine 1.025 (1.005-1.025); UACC Culture Trigger YES; Urine Blood NEG (NEG); Urine Ketones 5 MG/DL (NEG); Urine Protein TRACE MG/DL (NEG-TRACE)
[2021-08-01 18:12] LABS: RBC Urine 0 /HPF (0); Squamous Epithelial Cell Urine 1+ /LPF
[2021-08-01 18:13] LABS: Bacteria Urine 1+ /LPF
[2021-08-01 18:23] LABS: Amphetamine Screen Urine Not Detected (Not Detect); Barbiturates, Urine POSITIVE (Not Detect); Benzodiazepines Screen Urine Not Detected (Not Detect); Cannabinoid Screen Urine POSITIVE (Not Detect); Cocaine Screen Urine Not Detected (Not Detect); Fentanyl, urine Not Detected (Not Detect); Opiate Screen Urine Not Detected (Not Detect); Phencyclidine Screen Urine Not Detected (Not Detect)
--- NOTE | 2021-08-01 18:54 | MHC.CM.PN ---
CM attempted to meet with admitted patient with bed assignment pending. Pt unable to answer CM questions. Opens eyes to name only. Admitted with acute hepatic encephalopathy. CM will need to meet with patient when more awake and alert. CM to follow for d/c needs.
[2021-08-01] MEDS: Thiamine HCL 500 MG in 0.9 % Sodium Chloride 100 ML 210 MG IV (19:11)
[2021-08-01] MEDS: Lactated Ringers 1,000 ML 100 ML IVCONT (19:11)
--- NOTE | 2021-08-01 19:44 | PC.NURSE ---
pt temp noted to be 96.3, pt bundled with warm blankets. pt hypotensive 90/54 while in semi fowlers. MD dupree notified.
--- NOTE | 2021-08-01 20:05 | PC.NURSE ---
flex castañeda applied to pt
[2021-08-01 20:58] LABS: MANUAL DIFF FLAG NO
[2021-08-01 21:00] LABS: Basophils Percent Auto 0.6 % (0-2); Eosinophils Absolute Auto 0.1 X10*3/uL (0.0-0.4); Eosinophils Percent Auto 1.3 % (0-4); Hematocrit 27.4 % (42.0-52.0); Hemoglobin 9.5 g/dl (14.0-18.0); Imm Gran Abs Auto 0.02 X10*3/uL (0.00-0.03); Imm Gran Pct Auto 0.3 % (0.0-0.4); Lymphocytes Percent Auto 14.8 % (20-40); Mean Corpuscular HGB Conc 34.7 g/dl (31.0-36.0); Mean Corpuscular Hemoglobin 38.2 pg (27.0-33.0); Mean Platelet Volume 9.8 fL (9.4-12.4); Monocytes Absolute Auto 0.9 X10*3/uL (0.1-1.2); Monocytes Percent Auto 12.4 % (2-11); Neutrophils Absolute Auto 4.8 x10*3/uL (2.0-8.3); Neutrophils Percent Auto 70.6 % (45-73); Red Blood Count 2.49 X10*6/uL (4.60-5.80); Red Cell Distribution Width 17.1 % (11.0-16.0); White Blood Count 6.8 X10*3/uL (4.8-10.8)
[2021-08-01 21:05] LABS: Platelet Count 73 X10*3/uL (160-400)
--- NOTE | 2021-08-01 21:12 | PC.NURSE ---
md dupree at bedside, aware of low bp and temp. verbal order to dc 500 cc ns bolus
[2021-08-01 21:54] LABS: Glucose, Whole Blood 107 mg/dL (60-115)
[2021-08-01] MEDS: Octreotide Acetate 500 MCG in 0.9 % Sodium Chloride 500 ML 25.05 MCG IVCONT (22:03)
--- NOTE | 2021-08-01 22:15 | PC.NURSE ---
MD contacted to state that this RN received in report that pt vomits with PO lactolose. MD requesting lactolose to be given IL.
[2021-08-01] MEDS: Lactulose 20 GM/30 ML SOLUTION PR (23:00)
--- NOTE | 2021-08-02 00:48 | PM.EVENT ---
Event Note Date of Service: 08/02/21 Event Note: Hypotension: Patient blood pressure on the soft side. Patient is alert and awake and following commands. Patient given albumin x1. Also given concerns for anemia obtain a CBC which showed mild drop in hemoglobin. Patient denies any active signs of bleeding. Patient being started on octreotide drip. Will continue to monitor
--- NOTE | 2021-08-02 02:30 | PC.NURSE ---
Patient is refusing admission assessment, nursing assessment and vital signs.
[2021-08-02 03:19] VITALS: BP 117/50; PULSE 88; RESP 19; TEMP 36.4; O2SAT 96
[2021-08-02 03:42] VITALS: RESP 20; TEMP 36.6
[2021-08-02] MEDS: Thiamine HCL 500 MG in 0.9 % Sodium Chloride 100 ML 210 MG IV ×3 (05:25→20:34)
[2021-08-02] MEDS: Lactated Ringers 1,000 ML 100 ML IVCONT ×3 (05:31→20:33)
[2021-08-02 06:20] LABS: Hematocrit 25.8 % (42.0-52.0); Mean Corpuscular HGB Conc 34.9 g/dl (31.0-36.0); Mean Corpuscular Hemoglobin 38.3 pg (27.0-33.0); Mean Corpuscular Volume 109.8 fL (80.0-98.0); Mean Platelet Volume 10.1 fL (9.4-12.4); Red Blood Count 2.35 X10*6/uL (4.60-5.80); Red Cell Distribution Width 16.8 % (11.0-16.0); White Blood Count 5.1 X10*3/uL (4.8-10.8)
[2021-08-02 06:22] LABS: Platelet Count 59 X10*3/uL (160-400)
[2021-08-02 06:23] LABS: Ammonia 78 umol/L (13-55)
[2021-08-02 06:39] LABS: Alanine Aminotransferase 27 U/L (0-40); Albumin Level 2.4 g/dL (3.5-5.0); Alkaline Phosphatase 102 U/L (39-117); Anion Gap 17 (12-20); Aspartate Amino Transferase 71 U/L (5-37); Bilirubin Direct 4.5 mg/dL (0.0-0.5); Bilirubin Total 6.9 mg/dL (0.0-1.0); Blood Urea Nitrogen 41 mg/dL (9-16); Calcium 8.1 mg/dL (8.4-10.2); Carbon Dioxide 23 mmol/L (22-29); Chloride 102 mmol/L (96-108); Creatinine Clr Calc Pharmacy 60.3; Estimated Glomerular Filt Rate 40; Glucose Random 94 mg/dL (60-115); Magnesium 1.6 mg/dL (1.6-2.6); Sodium 138 mmol/L (135-145); Total Protein 5.8 g/dL (6.5-8.0)
[2021-08-02] MEDS: Pantoprazole Sodium 40 MG/10 ML VIAL IVPUSH ×2 (07:01→15:48)
[2021-08-02 07:07] LABS: INTERNATIONAL NORM RATIO 1.9 (0.9-1.1); Prothrombin Time 22.3 SEC (9.9-13.0)
[2021-08-02 07:36] LABS: Glucose, Whole Blood 91 mg/dL (60-115)
--- NOTE | 2021-08-02 08:33 | P.PNIM_ITS ---
Subjective Subjective Date of Service: 08/02/21 Review of Systems Follow up GI bleed, ETOH encephalopathy Tired but woke up when breakfast arrived slow moving initially declined paracentesis Physical Exam Vital Signs: Vital Signs: Last Vital Signs Temp 97.9 F 08/02/21 03:42 Pulse 88 08/02/21 03:19 Resp 20 08/02/21 03:42 BP 117/50 L 08/02/21 03:19 Pulse Ox 96 08/02/21 03:19 BMI result Body Mass Index 41.8 Appearing in no acute distress lung sounds are clear to auscultation heart regular rate rhythm, clear S1, S2 positive bowel sounds, large, round abd, semi firm neuro patient is alert x3, no focal deficits Objective Data Active Medications Dextrose (Dextrose 50 % 25 Gm/50 Ml Syringe) 25 gm IVPUSH Q15M PRN; Protocol PRN Reason: per Hypoglycemia Standing Ord. Docusate Sodium (Docusate Sodium 100 Mg Capsule) 100 mg PO DAILY PRN PRN Reason: Constipation Folic Acid (Folic Acid 1 Mg Tablet) 1 mg PO DAILY [facility] Glucose (Glucose Gel 15 Gm Gel..Gram.) 15 gm PO Q15M PRN; Protocol PRN Reason: per Hypoglycemia Standing Ord. Ceftriaxone Sodium 1 gm/ (Sodium Chloride) 50 mls @ 100 mls/hr IV Q24H [facility] Lactated Ringer's (Lr) 1,000 mls @ 100 mls/hr IVCONT .Q10H [facility] Last Admin: 08/02/21 05:31 Dose: 100 mls/hr Documented by: SHIMON Thiamine HCl 500 mg/ Sodium (Chloride) 105 mls @ 210 mls/hr IV Q8H [facility] Stop: 08/03/21 11:29 Last Infusion: 08/02/21 06:53 Dose: 0 mls/hr Documented by: SHIMON Octreotide Acetate 500 mcg/ (Sodium Chloride) 501 mls @ 25.05 mls/hr IVCONT .Q20H [facility] Last Admin: 08/01/21 22:03 Dose: 25 mcg/hr, 25.05 mls/hr Documented by: VIVIANA Insulin Human Lispro (Insulin Lispro 100 Unit/Ml 3 Ml Vial) 0 unit SUBCUT [facility]; Protocol Last Admin: 08/01/21 22:16 Dose: Not Given Documented by: VIVIANA Non-Admin Reason: No Insulin Coverage Lactulose (Lactulose 20 Gm/30 Ml Solution) 20 gm PO TID [facility] Last Admin: 08/01/21 23:00 Dose: Not Given Documented by: VIVIANA Non-Admin Reason: See Note Pantoprazole Sodium (Pantoprazole Sodium 40 Mg/10 Ml Vial) 40 mg IVPUSH BID@0630,1630 [facility] Last Admin: 08/02/21 07:01 Dose: 40 mg Documented by: SHIMON Pharmacy Consult (Consult Rx Perform Med Rec) 1 each MISCELLANE ONCE PRN PRN Reason: Consult order Pharmacy Consult (Consult Rx Etoh Phenob Po Dose) 1 each MISCELLANE ONCE PRN; Protocol PRN Reason: Consult order Phenobarbital (Phenobarbital 15 Mg Tablet) 45 mg PO BID [facility] Stop: 08/03/21 21:01 Phenobarbital (Phenobarbital 15 Mg Tablet) 15 mg PO BID [facility] Stop: 08/05/21 21:01 Phenobarbital (Phenobarbital 15 Mg Tablet) 15 mg PO DAILY [facility] Stop: 08/07/21 09:01 Sodium Chloride (0.9 % Sodium Chloride Flush 3 Ml Syringe) 3 ml IVFLUSH QSHIFT [facility] Last Admin: 08/02/21 02:28 Dose: Not Given Documented by: SHIMON Non-Admin Reason: IV Running Labs CBC & Chem 7: 08/02/21 06:03 08/02/21 06:03 Labs: Laboratory Results - last 24 hr 08/01/21 08/01/21 08/01/21 13:30 13:30 13:30 MCV 109.1 H MCH 38.5 H MCHC 35.3 RDW 16.8 H Plt Count 102 L MPV 10.0 Immature Gran % (Auto) 0.3 Neut % (Auto) 72.6 Lymph % (Auto) 14.9 L Hopkins % (Auto) 10.7 Eos % (Auto) 0.8 Baso % (Auto) 0.7 Lymph # (Auto) 1.1 L Hopkins # (Auto) 0.8 Eos # (Auto) 0.1 Baso # (Auto) 0.1 Abs Immat Gran (auto) 0.02 Absolute Neuts (auto) 5.3 Absolute Nucleated RBC 0.000 Nucleated RBC % (auto) 0.0 PT INR APTT O2 Saturation ABG pH at Pt Temp ABG pH (Temp Correct) ABG pCO2 at Pt Temp ABG pCO2 (Temp Corrct ABG pO2 at Pt Temp ABG pO2 (Temp Correct ABG HCO3 ABG Base Excess (Actual) VBG pH VBG pCO2 VBG pO2 VBG HCO3 VBG O2 Saturation VBG Base Excess Anion Gap 18 Estim Creat Clear Calc 44.5 Estimated GFR 28 POC Glucose Random Glucose 113 Lactic Acid Calcium 8.4 Magnesium 1.5 L Total Bilirubin 7.8 H Direct Bilirubin 5.3 H AST 103 H ALT 39 Alkaline Phosphatase 160 H Ammonia 124 H Total Creatine Kinase 489 H Troponin I High Sens Total Protein 7.1 Albumin 2.1 L Lipase 26 Urine Color Urine Appearance Urine pH Ur Specific [place] Urine Protein Urine Glucose (UA) Urine Ketones Urine Blood Urine Nitrite Ur Leukocyte Esterase Urine RBC Urine WBC Ur Squamous Epith Cells Urine Bacteria Hyaline Casts Stool Occult Blood Salicylates < 5.0 L Urine Opiates Screen Urine Fentanyl Screen Acetaminophen 1 Ur Barbiturates Screen Ur Phencyclidine Scrn Ur Amphetamines Screen U Benzodiazepines Scrn Urine Cocaine Screen U Marijuana (THC) Screen Ethyl Alcohol COVID-19 (JESIKA) COVID-19 Clin Com Blood Type Antibody Screen 08/01/21 08/01/21 08/01/21 13:30 13:30 13:30 MCV MCH MCHC RDW Plt Count MPV Immature Gran % (Auto) Neut % (Auto) Lymph % (Auto) Hopkins % (Auto) Eos % (Auto) Baso % (Auto) Lymph # (Auto) Hopkins # (Auto) Eos # (Auto) Baso # (Auto) Abs Immat Gran (auto) Absolute Neuts (auto) Absolute Nucleated RBC Nucleated RBC % (auto) PT 18.9 H INR 1.6 H APTT 32.7 O2 Saturation ABG pH at Pt Temp ABG pH (Temp Correct) ABG pCO2 at Pt Temp ABG pCO2 (Temp Corrct ABG pO2 at Pt Temp ABG pO2 (Temp Correct ABG HCO3 ABG Base Excess (Actual) VBG pH VBG pCO2 VBG pO2 VBG HCO3 VBG O2 Saturation VBG Base Excess Anion Gap Estim Creat Clear Calc Estimated GFR POC Glucose Random Glucose Lactic Acid 3.9 H* Calcium Magnesium Total Bilirubin Direct Bilirubin AST ALT Alkaline Phosphatase Ammonia Total Creatine Kinase Troponin I High Sens 4.7 Total Protein Albumin Lipase Urine Color Urine Appearance Urine pH Ur Specific [place] Urine Protein Urine Glucose (UA) Urine Ketones Urine Blood Urine Nitrite Ur Leukocyte Esterase Urine RBC Urine WBC Ur Squamous Epith Cells Urine Bacteria Hyaline Casts Stool Occult Blood Salicylates Urine Opiates Screen Urine Fentanyl Screen Acetaminophen Ur Barbiturates Screen Ur Phencyclidine Scrn Ur Amphetamines Screen U Benzodiazepines Scrn Urine Cocaine Screen U Marijuana (THC) Screen Ethyl Alcohol COVID-19 (JESIKA) COVID-19 Clin Com Blood Type Antibody Screen 08/01/21 08/01/21 08/01/21 13:30 13:30 13:34 MCV MCH MCHC RDW Plt Count MPV Immature Gran % (Auto) Neut % (Auto) Lymph % (Auto) Hopkins % (Auto) Eos % (Auto) Baso % (Auto) Lymph # (Auto) Hopkins # (Auto) Eos # (Auto) Baso # (Auto) Abs Immat Gran (auto) Absolute Neuts (auto) Absolute Nucleated RBC Nucleated RBC % (auto) PT INR APTT O2 Saturation Cancelled ABG pH at Pt Temp Cancelled ABG pH (Temp Correct) Cancelled ABG pCO2 at Pt Temp Cancelled ABG pCO2 (Temp Corrct Cancelled ABG pO2 at Pt Temp Cancelled ABG pO2 (Temp Correct Cancelled ABG HCO3 Cancelled ABG Base Excess (Actual) Cancelled VBG pH 7.45 H VBG pCO2 37 VBG pO2 56 VBG HCO3 26 VBG O2 Saturation 80.0 VBG Base Excess 2.7 Anion Gap Estim Creat Clear Calc Estimated GFR POC Glucose Random Glucose Lactic Acid Calcium Magnesium Total Bilirubin Direct Bilirubin AST ALT Alkaline Phosphatase Ammonia Total Creatine Kinase Troponin I High Sens Total Protein Albumin Lipase Urine Color Urine Appearance Urine pH Ur Specific [place] Urine Protein Urine Glucose (UA) Urine Ketones Urine Blood Urine Nitrite Ur Leukocyte Esterase Urine RBC Urine WBC Ur Squamous Epith Cells Urine Bacteria Hyaline Casts Stool Occult Blood Salicylates Urine Opiates Screen Urine Fentanyl Screen Acetaminophen Ur Barbiturates Screen Ur Phencyclidine Scrn Ur Amphetamines Screen U Benzodiazepines Scrn Urine Cocaine Screen U Marijuana (THC) Screen Ethyl Alcohol < 10 COVID-19 (JESIKA) Negative COVID-19 Clin Com See Note Blood Type Antibody Screen 08/01/21 08/01/21 08/01/21 14:07 14:59 17:45 MCV MCH MCHC RDW Plt Count MPV Immature Gran % (Auto) Neut % (Auto) Lymph % (Auto) Hopkins % (Auto) Eos % (Auto) Baso % (Auto) Lymph # (Auto) Hopkins # (Auto) Eos # (Auto) Baso # (Auto) Abs Immat Gran (auto) Absolute Neuts (auto) Absolute Nucleated RBC Nucleated RBC % (auto) PT INR APTT O2 Saturation ABG pH at Pt Temp ABG pH (Temp Correct) ABG pCO2 at Pt Temp ABG pCO2 (Temp Corrct ABG pO2 at Pt Temp ABG pO2 (Temp Correct ABG HCO3 ABG Base Excess (Actual) VBG pH VBG pCO2 VBG pO2 VBG HCO3 VBG O2 Saturation VBG Base Excess Anion Gap Estim Creat Clear Calc Estimated GFR POC Glucose Random Glucose Lactic Acid Calcium Magnesium Total Bilirubin Direct Bilirubin AST ALT Alkaline Phosphatase Ammonia Total Creatine Kinase Troponin I High Sens Total Protein Albumin Lipase Urine Color DK YELLOW Urine Appearance CLEAR Urine pH 5.5 Ur Specific [place] 1.025 Urine Protein TRACE Urine Glucose (UA) NEG Urine Ketones 5 Urine Blood NEG Urine Nitrite POS H Ur Leukocyte Esterase NEG Urine RBC 0 Urine WBC 5-9 H Ur Squamous Epith Cells 1+ Urine Bacteria 1+ Hyaline Casts 1-4 Stool Occult Blood POSITIVE Salicylates Urine Opiates Screen Urine Fentanyl Screen Acetaminophen Ur Barbiturates Screen Ur Phencyclidine Scrn Ur Amphetamines Screen U Benzodiazepines Scrn Urine Cocaine Screen U Marijuana (THC) Screen Ethyl Alcohol COVID-19 (JESIKA) COVID-19 Clin Com Blood Type O Negative Antibody Screen NEGATIVE 08/01/21 08/01/21 08/01/21 17:45 20:54 21:50 MCV 110.0 H MCH 38.2 H MCHC 34.7 RDW 17.1 H Plt Count 73 L D MPV 9.8 Immature Gran % (Auto) 0.3 Neut % (Auto) 70.6 Lymph % (Auto) 14.8 L Hopkins % (Auto) 12.4 H Eos % (Auto) 1.3 Baso % (Auto) 0.6 Lymph # (Auto) 1.0 L Hopkins # (Auto) 0.9 Eos # (Auto) 0.1 Baso # (Auto) 0.0 Abs Immat Gran (auto) 0.02 Absolute Neuts (auto) 4.8 Absolute Nucleated RBC 0.000 Nucleated RBC % (auto) 0.0 PT INR APTT O2 Saturation ABG pH at Pt Temp ABG pH (Temp Correct) ABG pCO2 at Pt Temp ABG pCO2 (Temp Corrct ABG pO2 at Pt Temp ABG pO2 (Temp Correct ABG HCO3 ABG Base Excess (Actual) VBG pH VBG pCO2 VBG pO2 VBG HCO3 VBG O2 Saturation VBG Base Excess Anion Gap Estim Creat Clear Calc Estimated GFR POC Glucose 107 Random Glucose Lactic Acid Calcium Magnesium Total Bilirubin Direct Bilirubin AST ALT Alkaline Phosphatase Ammonia Total Creatine Kinase Troponin I High Sens Total Protein Albumin Lipase Urine Color Urine Appearance Urine pH Ur Specific [place] Urine Protein Urine Glucose (UA) Urine Ketones Urine Blood Urine Nitrite Ur Leukocyte Esterase Urine RBC Urine WBC Ur Squamous Epith Cells Urine Bacteria Hyaline Casts Stool Occult Blood Salicylates Urine Opiates Screen Not Detected Urine Fentanyl Screen Not Detected Acetaminophen Ur Barbiturates Screen POSITIVE H Ur Phencyclidine Scrn Not Detected Ur Amphetamines Screen Not Detected U Benzodiazepines Scrn Not Detected Urine Cocaine Screen Not Detected U Marijuana (THC) Screen POSITIVE H Ethyl Alcohol COVID-19 (JESIKA) COVID-19 Clin Com Blood Type Antibody Screen 08/02/21 08/02/21 08/02/21 06:03 06:03 06:03 MCV 109.8 H MCH 38.3 H MCHC 34.9 RDW 16.8 H Plt Count 59 L MPV 10.1 Immature Gran % (Auto) Neut % (Auto) Lymph % (Auto) Hopkins % (Auto) Eos % (Auto) Baso % (Auto) Lymph # (Auto) Hopkins # (Auto) Eos # (Auto) Baso # (Auto) Abs Immat Gran (auto) Absolute Neuts (auto) Absolute Nucleated RBC 0.000 Nucleated RBC % (auto) 0.0 PT INR APTT O2 Saturation ABG pH at Pt Temp ABG pH (Temp Correct) ABG pCO2 at Pt Temp ABG pCO2 (Temp Corrct ABG pO2 at Pt Temp ABG pO2 (Temp Correct ABG HCO3 ABG Base Excess (Actual) VBG pH VBG pCO2 VBG pO2 VBG HCO3 VBG O2 Saturation VBG Base Excess Anion Gap 17 Estim Creat Clear Calc 60.3 Estimated GFR 40 POC Glucose Random Glucose 94 Lactic Acid Calcium 8.1 L Magnesium 1.6 Total Bilirubin 6.9 H Direct Bilirubin 4.5 H AST 71 H ALT 27 Alkaline Phosphatase 102 D Ammonia 78 H Total Creatine Kinase 225 H D Troponin I High Sens Total Protein 5.8 L Albumin 2.4 L Lipase Urine Color Urine Appearance Urine pH Ur Specific [place] Urine Protein Urine Glucose (UA) Urine Ketones Urine Blood Urine Nitrite Ur Leukocyte Esterase Urine RBC Urine WBC Ur Squamous Epith Cells Urine Bacteria Hyaline Casts Stool Occult Blood Salicylates Urine Opiates Screen Urine Fentanyl Screen Acetaminophen Ur Barbiturates Screen Ur Phencyclidine Scrn Ur Amphetamines Screen U Benzodiazepines Scrn Urine Cocaine Screen U Marijuana (THC) Screen Ethyl Alcohol COVID-19 (JESIKA) COVID-19 [employer] Com Blood Type Antibody Screen 08/02/21 08/02/21 06:04 07:31 MCV MCH MCHC RDW Plt Count MPV Immature Gran % (Auto) Neut % (Auto) Lymph % (Auto) Hopkins % (Auto) Eos % (Auto) Baso % (Auto) Lymph # (Auto) Hopkins # (Auto) Eos # (Auto) Baso # (Auto) Abs Immat Gran (auto) Absolute Neuts (auto) Absolute Nucleated RBC Nucleated RBC % (auto) PT 22.3 H INR 1.9 H APTT O2 Saturation ABG pH at Pt Temp ABG pH (Temp Correct) ABG pCO2 at Pt Temp ABG pCO2 (Temp Corrct ABG pO2 at Pt Temp ABG pO2 (Temp Correct ABG HCO3 ABG Base Excess (Actual) VBG pH VBG pCO2 VBG pO2 VBG HCO3 VBG O2 Saturation VBG Base Excess Anion Gap Estim Creat Clear Calc Estimated GFR POC Glucose 91 Random Glucose Lactic Acid Calcium Magnesium Total Bilirubin Direct Bilirubin AST ALT Alkaline Phosphatase Ammonia Total Creatine Kinase Troponin I High Sens Total Protein Albumin Lipase Urine Color Urine Appearance Urine pH Ur Specific [place] Urine Protein Urine Glucose (UA) Urine Ketones Urine Blood Urine Nitrite Ur Leukocyte Esterase Urine RBC Urine WBC Ur Squamous Epith Cells Urine Bacteria Hyaline Casts Stool Occult Blood Salicylates Urine Opiates Screen Urine Fentanyl Screen Acetaminophen Ur Barbiturates Screen Ur Phencyclidine Scrn Ur Amphetamines Screen U Benzodiazepines Scrn Urine Cocaine Screen U Marijuana (THC) Screen Ethyl Alcohol COVID-19 (JESIKA) COVID-19 Clin Com Blood Type Antibody Screen Assessment and Plan (1) Alcohol withdrawal: Status: Acute Plan This is a 55 year old male with history of alcohol dependence, withdrawal seizures, liver cirrhosis, DM, HTN who was brought to the emergency department by EMS due to lethargy found to have numerous abnormalities including decompensated liver failure, ascites, SAUL ?Decompensated liver cirrhosis with ascites and thrombocytopenia ?cirrhosis secondary to alcohol abuse ?meld score 29 ?Robby discriminant function 34.9, he does qualify for steroids but given concern over GI bleeding will hold off for now ?follow Liver function ?GI consult pending paracentesis ordered Probable GI bleed INR elevated, guiac positive; dried blood in mouth no other overt bleeding noted IV PPI, IVF, Octretide, clear liquid diet GI consult pending follow CBC ? Toxic Metabolic encephalopathy/ hepatic encephalopathy ammonia 124 to 78, possible Wernicke encephalopathy lactulose retention enema ordered in ED follow ammonia level will continue po lactulose; titrate to 2-3 BM daily thiamine 500 tid x2 days and then 250 daily for 5 days SAUL likely prerenal Improving follow BMO alcohol dependence with high risk for withdrawal ?history of alcohol withdrawal seizures in the past ?continue phenobarbital protocol ?seizure precautions ?supplementation with thiamine, folate ?consider care team evaluation prior to discharge ?high dose thiamine empirically for possible Wernicke encephalopathy coagulopathy r/t liver disease INR 1.9 received vit k in ED follow INR mild rhabdo cpk 489 IVF follow CPK hypoagnesemia r/t etoh abuse replace and follow Elevated lactic acid secondary to dehydration/ liver dysfunction/ metformin No evidence of sepsis IV fluid DM hold metformin SSI, POCs mood hold sertraline for now can resume when more awake HTN hold lisinopril for SAUL, hypotension dvt ppx - mechanical devices code status - presumed full code attending - dr. darby Quality Stroke Does the patient have a stroke diagnosis?: No VTE Prior VTE?: No VTE Risk Level:: Medical - moderate - high VTE Device Contraindication: N/A - Device Ordered VTE Drug Contraindication: Treatment Not Indicated
[2021-08-02 08:52] LABS: Lactate Dehydrogenase 166 U/L (118-273); Total Protein 5.7 g/dL (6.5-8.0)
[2021-08-02] MEDS: PHENobarbitaL 15 MG TABLET 45 MG PO ×2 (09:09→20:33)
[2021-08-02] MEDS: Folic Acid 1 MG TABLET PO (09:09)
[2021-08-02] MEDS: Lactulose 20 GM/30 ML SOLUTION PO ×3 (09:10→20:34)
[2021-08-02 09:17] VITALS: BP 125/71; PULSE 100; RESP 18; TEMP 36.4; O2SAT 95
[2021-08-02 11:41] LABS: Glucose, Whole Blood 137 mg/dL (60-115)
[2021-08-02 14:37] LABS: Reflex Lactate? Lactic Acid Added
[2021-08-02 15:24] VITALS: BP 114/66; PULSE 104; RESP 19; TEMP 36.7; O2SAT 96
[2021-08-02] MEDS: Octreotide Acetate 500 MCG in 0.9 % Sodium Chloride 500 ML 25.05 MCG IVCONT (15:48)
[2021-08-02] MEDS: cefTRIAXone sodium 1 GM in 0.9 % Sodium Chloride 50 ML IV (15:48)
[2021-08-02 16:23] LABS: Glucose, Whole Blood 178 mg/dL (60-115)
--- NOTE | 2021-08-02 17:28 | P.EN_ITS ---
Event Note Date of Service: 08/02/21 Event Note: GI Consult-Full note dictated-Hx via patient, RN, and EMR. Imp: 55 yo with longstanding hx of active EtOH abuse and cirrhosis with ascites, encephalopathy, jaundice, EtOH hepatitis, coagulopathy, and thrombocytopenia. He denies any bleeding at home and he has had no reported bleeding here. He is presently alert and answers questions appropriately, although does have asterixis. His abdomen is distended with ascites but is NT. He did have Heme + stool, but brown. His Hgb has been stable after hydration. His EtOH hepatitis is stable with improved TBili. Rec: Supportive care. I don't think he needs steroids for the EtOH hepatitis at this time. Agree with paracentesis and studies ordered both for comfort and diagnostic purposes. D/C antibiotics if no sign of infection. Will D/C IV Sandostatin given no description of a variceal bleed. I will hold off on end oscopy given no definitive reported bleeding here nor at home. Advance diet. Continue PPI but will change to po. Will start a diuretic regime with Aldactone and Furosemide in the meantime. Continue Lactulose. Give another dose of IV Vit K. Check F/U labs. I advised patient of the severity of his liver disease and the need to remain abstinent care home. Thanks
[2021-08-02] MEDS: Phytonadione (Vit K1) 10 MG in 0.9 % Sodium Chloride 50 ML 51 MG IV (17:46)
[2021-08-02] MEDS: Insulin Lispro 100 UNIT/ML 3 ML VIAL SUBCUT ×2 (17:46→20:34)
[2021-08-02] MEDS: Omeprazole 40 MG CAPSULE.DR PO (17:54)
[2021-08-02] MEDS: Spironolactone 25 MG TABLET PO (17:54)
[2021-08-02] MEDS: Furosemide 20 MG TABLET PO (17:54)
--- NOTE | 2021-08-02 18:51 | CONS_ITS ---
DATE OF SERVICE: 08/02/2021 REASON FOR CONSULTATION: Cirrhosis, ascites, jaundice, alcohol-induced hepatitis, and encephalopathy. HISTORY OF PRESENT ILLNESS: This has been obtained from patient, his nurse, and the medical record. The patient is a 55-year-old male with a long-standing history of alcohol abuse up until coming into the hospital, who was basically sent to the ER due to some lethargy, jaundice, and increasing abdominal girth. He had been drinking actively up until this admission. He was found to have ascites and elevated ammonia level, as well as elevated LFTs in the ER. The patient denies any known history of liver disease, although he has been a long-term drinker. He denies any recent signs of bleeding at home. I did mention to him that they did find some black material in his mouth and he says that is from his chewing tobacco. He denies any vomiting as far as he can recall. He denies any signs of hematochezia nor melena at home. He denies ever having any ulcer disease nor GI bleeding. He has had increasing abdominal distention, but denies abdominal pain. He has also noticed intermittent swelling in the feet. He denies any known history of liver disease in his family members. He denies any known family history of GI malignancies in the family. Since coming into the hospital, there has been no signs of bleeding. His stool was heme-positive in the ER, but was brown. His mental status has improved here in the hospital with lactulose, although he is still somewhat sleepy. He does say he is hungry. His hemoglobin has been stable. He has been afebrile. MEDICATIONS: At home included folic acid, lisinopril, metformin, omeprazole, sertraline, and thiamine. Medications here in the hospital include IV ceftriaxone, Colace p.r.n., folic acid, insulin, lactulose, IV Protonix, IV Sandostatin, phenobarbital, vitamin K, and thiamine. PAST MEDICAL HISTORY: Long-standing alcohol abuse with associated liver disease as above. Diabetes. Hypertension. History of withdrawal seizures. He denies any significant surgeries. He denies any history of IN, nor stroke. SOCIAL HISTORY: He lives with a girlfriend. Long-term alcohol abuse. He describes chewing tobacco. FAMILY HISTORY: Noncontributory. REVIEW OF SYSTEMS: CONSTITUTIONAL: He has been feeling poorly at home in relation to fatigue and anorexia. SKIN: He denies any obvious jaundice. CARDIAC: He denies chest pain. PULMONARY: He denies coughing. GI: As above. PHYSICAL EXAMINATION: GENERAL: The patient is an alert male who answers questions appropriately. He does have asterixis on exam. Slightly icteric sclerae. NECK: Supple. CARDIAC: Normal S1, S2. ABDOMEN: Soft, but quite distended. The abdomen is nontender. There is no palpable mass. EXTREMITIES: Reveal no significant edema. LABORATORY DATA: Initial hemoglobin was 11.4. Hemoglobin then dropped to 9.5 last evening and was 9.0 today. MCV 110. Platelets 59,000. White blood cell count 5.1. PT 18.9 with INR 1.6 yesterday and PT 22.3 with INR 1.9 today. His total bilirubin was 7.8 yesterday with direct bilirubin 5.3, and today's liver profile shows total bilirubin of 6.9 with direct bilirubin of 4.5. AST was 103 yesterday and 71 today. ALT was 39 yesterday and 27 today. Alkaline phosphatase was 160 yesterday and 102 today. Ammonia level was 124 yesterday and 78 today. Albumin was 2.1 yesterday and 2.4 today. Lipase was 26. Stool was heme- positive. His tox screen showed positive barbiturates and positive marijuana. It was nondetectable for alcohol and salicylates. COVID was negative. His abdominal ultrasound revealed ascites and a small liver consistent with cirrhosis. Portal vein appeared normal without any sign of thrombosis. There were no gallstones. IMPRESSION: The patient is a 55-year-old male with advanced liver disease and decompensation in relation to ongoing alcohol abuse. He does have a component of alcohol-induced hepatitis, but this appears to be improving and I do not think he needs to be on any steroids in that relation at this time. He does have some anemia, but there has been no definitive report of bleeding and I would therefore hold off an endoscopy. I do not think he needs to be on Sandostatin given no description of any type of variceal bleeding. I would change him over to oral PPI and stop the Sandostatin. I think his diet can be advanced at this time. His hepatic encephalopathy seems to be getting better from a clinical standpoint and I would continue his lactulose, I would start some diuretics and await the large volume paracentesis which has been ordered both for his comfort and for diagnostic purposes. If there is no evidence of any infection in the ascites at that point then I think the ceftriaxone can be stopped. I will give him another dose of vitamin K and recheck his PT/INR tomorrow. I would also repeat his liver profile and ammonia level tomorrow. Chemistry function should be followed closely as well. I will start him on a low dose of Aldactone and furosemide, but this may need to be increased as time goes on. If he does show signs of bleeding, we can always reassess that and decide if he needs endoscopy at that point. However, at this point I would hold off on that. I did advise him of the severity of his liver disease and the need to remain abstinent long-term. Thank you for the consultation. MD JUVENTINO Farnsworth/MARCIA / [id number] [id number]
[2021-08-02 19:35] VITALS: BP 121/67; PULSE 130; RESP 14; TEMP 36.8
[2021-08-02 20:07] LABS: Glucose, Whole Blood 213 mg/dL (60-115)
[2021-08-02] MEDS: 0.9 % Sodium Chloride Flush 3 ML SYRINGE IVFLUSH (20:34)
[2021-08-02 23:21] VITALS: BP 129/66; PULSE 120; RESP 20; TEMP 37.1; O2SAT 95
[2021-08-03 02:58] VITALS: BP 121/69; PULSE 108; RESP 20; TEMP 36.4; O2SAT 94
[2021-08-03] MEDS: Thiamine HCL 500 MG in 0.9 % Sodium Chloride 100 ML 210 MG IV ×2 (04:10→12:30)
[2021-08-03] MEDS: Omeprazole 40 MG CAPSULE.DR PO (05:58)
[2021-08-03] MEDS: Lactated Ringers 1,000 ML 100 ML IVCONT (05:58)
[2021-08-03 06:09] LABS: Hematocrit 26.3 % (42.0-52.0); Hemoglobin 8.9 g/dl (14.0-18.0); Mean Corpuscular HGB Conc 33.8 g/dl (31.0-36.0); Mean Corpuscular Hemoglobin 37.6 pg (27.0-33.0); Red Blood Count 2.37 X10*6/uL (4.60-5.80); Red Cell Distribution Width 16.5 % (11.0-16.0); White Blood Count 4.9 X10*3/uL (4.8-10.8)
[2021-08-03 06:14] LABS: INTERNATIONAL NORM RATIO 1.8 (0.9-1.1); Platelet Count 62 X10*3/uL (160-400); Prothrombin Time 20.5 SEC (9.9-13.0)
[2021-08-03 06:18] LABS: Ammonia 61 umol/L (13-55)
[2021-08-03 06:19] LABS: Ammonia 56 umol/L (13-55)
[2021-08-03 06:24] LABS: Anion Gap 11 (12-20); Blood Urea Nitrogen 32 mg/dL (9-16); Calcium 8.1 mg/dL (8.4-10.2); Carbon Dioxide 28 mmol/L (22-29); Chloride 101 mmol/L (96-108); Creatinine Clr Calc Pharmacy 79.8; Estimated Glomerular Filt Rate 55; Glucose Random 168 mg/dL (60-115); Potassium 3.5 mmol/L (3.3-5.1); Sodium 136 mmol/L (135-145)
[2021-08-03 06:26] LABS: Alanine Aminotransferase 29 U/L (0-40); Albumin Level 2.2 g/dL (3.5-5.0); Alkaline Phosphatase 98 U/L (39-117); Aspartate Amino Transferase 78 U/L (5-37); Bilirubin Direct 4.3 mg/dL (0.0-0.5); Bilirubin Total 6.5 mg/dL (0.0-1.0); Total Protein 5.9 g/dL (6.5-8.0)
--- NOTE | 2021-08-03 07:25 | P.PNIM_ITS ---
Subjective Subjective Date of Service: 08/03/21 Review of Systems Follow up GI bleed, ETOH encephalopathy Tired but woke up when breakfast arrived slow moving initially declined paracentesis Physical Exam Vital Signs: Vital Signs: Last Vital Signs Temp 97.5 F 08/03/21 02:58 Pulse 108 H 08/03/21 02:58 Resp 20 08/03/21 02:58 BP 121/69 08/03/21 02:58 Pulse Ox 94 08/03/21 02:58 BMI result Body Mass Index 41.8 Appearing in no acute distress lung sounds are clear to auscultation heart regular rate rhythm, clear S1, S2 positive bowel sounds, large round abdomen, slightly distended neuro patient is alert x3, no focal deficits Objective Data Active Medications Dextrose (Dextrose 50 % 25 Gm/50 Ml Syringe) 25 gm IVPUSH Q15M PRN; Protocol PRN Reason: per Hypoglycemia Standing Ord. Docusate Sodium (Docusate Sodium 100 Mg Capsule) 100 mg PO DAILY PRN PRN Reason: Constipation Folic Acid (Folic Acid 1 Mg Tablet) 1 mg PO DAILY [facility] Last Admin: 08/02/21 09:09 Dose: 1 mg Documented by: VANIA Furosemide (Furosemide 20 Mg Tablet) 20 mg PO DAILY LEO; Protocol Last Admin: 08/02/21 17:54 Dose: 20 mg Documented by: VANIA Glucose (Glucose Gel 15 Gm Gel..Gram.) 15 gm PO Q15M PRN; Protocol PRN Reason: per Hypoglycemia Standing Ord. Ceftriaxone Sodium 1 gm/ (Sodium Chloride) 50 mls @ 100 mls/hr IV Q24H [facility] Last Infusion: 08/02/21 16:20 Dose: 0 mls/hr Documented by: VANIA Lactated Ringer's (Lr) 1,000 mls @ 100 mls/hr IVCONT .Q10H [facility] Last Admin: 08/03/21 05:58 Dose: 100 mls/hr Documented by: ANGLE Thiamine HCl 500 mg/ Sodium (Chloride) 105 mls @ 210 mls/hr IV Q8H [facility] Stop: 08/03/21 11:29 Last Infusion: 08/03/21 04:40 Dose: 0 mls/hr Documented by: ANGLE Insulin Human Lispro (Insulin Lispro 100 Unit/Ml 3 Ml Vial) 0 unit SUBCUT QIDACHS [facility]; Protocol Last Admin: 08/02/21 20:34 Dose: 4 unit Documented by: ANGLE Lactulose (Lactulose 20 Gm/30 Ml Solution) 20 gm PO TID [facility] Last Admin: 08/02/21 20:34 Dose: 20 gm Documented by: ANGLE Omeprazole (Omeprazole 40 Mg Capsule.Dr) 40 mg PO DAILY@0630 [facility] Last Admin: 08/03/21 05:58 Dose: 40 mg Documented by: ANGLE Pharmacy Consult (Consult Rx Perform Med Rec) 1 each MISCELLANE ONCE PRN PRN Reason: Consult order Pharmacy Consult (Consult Rx Etoh Phenob Po Dose) 1 each MISCELLANE ONCE PRN; Protocol PRN Reason: Consult order Phenobarbital (Phenobarbital 15 Mg Tablet) 45 mg PO BID [facility] Stop: 08/03/21 21:01 Last Admin: 08/02/21 20:33 Dose: 45 mg Documented by: ANGLE Phenobarbital (Phenobarbital 15 Mg Tablet) 15 mg PO BID [facility] Stop: 08/05/21 21:01 Phenobarbital (Phenobarbital 15 Mg Tablet) 15 mg PO DAILY [facility] Stop: 08/07/21 09:01 Sodium Chloride (0.9 % Sodium Chloride Flush 3 Ml Syringe) [facility] Last Admin: 08/02/21 20:34 Dose: 3 ml Documented by: ANGLE Spironolactone (Spironolactone 25 Mg Tablet) 25 mg PO BID@0900,1800 [facility]; Protocol Last Admin: 08/02/21 17:54 Dose: 25 mg Documented by: VANIA Labs CBC & Chem 7: 08/03/21 05:58 08/03/21 05:58 Labs: Laboratory Results - last 24 hr 08/01/21 08/02/21 08/02/21 13:30 06:03 06:03 MCV MCH MCHC RDW Plt Count MPV Absolute Nucleated RBC Nucleated RBC % (auto) PT INR Anion Gap Creatinine 2.44 H 1.80 H Estim Creat Clear Calc Estimated GFR POC Glucose Random Glucose Lactic Acid F/U @ 2Hr Calcium Total Bilirubin Direct Bilirubin AST ALT Alkaline Phosphatase Ammonia Lactate Dehydrogenase 166 Total Protein 5.7 L Albumin 08/02/21 08/02/21 08/02/21 07:31 11:37 15:01 MCV MCH MCHC RDW Plt Count MPV Absolute Nucleated RBC Nucleated RBC % (auto) PT INR Anion Gap Creatinine Estim Creat Clear Calc Estimated GFR POC Glucose 91 137 H Random Glucose Lactic Acid F/U @ 2Hr 2.0 Calcium Total Bilirubin Direct Bilirubin AST ALT Alkaline Phosphatase Ammonia Lactate Dehydrogenase Total Protein Albumin 08/02/21 08/02/21 08/03/21 15:30 19:44 05:57 MCV MCH MCHC RDW Plt Count MPV Absolute Nucleated RBC Nucleated RBC % (auto) PT INR Anion Gap Creatinine Estim Creat Clear Calc Estimated GFR POC Glucose 178 H 213 H Random Glucose Lactic Acid F/U @ 2Hr Calcium Total Bilirubin Direct Bilirubin AST ALT Alkaline Phosphatase Ammonia 61 H Lactate Dehydrogenase Total Protein Albumin 08/03/21 08/03/21 08/03/21 05:58 05:58 05:58 MCV 111.0 H MCH 37.6 H MCHC 33.8 RDW 16.5 H Plt Count 62 L MPV 10.0 Absolute Nucleated RBC 0.000 Nucleated RBC % (auto) 0.0 PT 20.5 H INR 1.8 H Anion Gap 11 L Creatinine 1.36 Estim Creat Clear Calc 79.8 Estimated GFR 55 POC Glucose Random Glucose 168 H D Lactic Acid F/U @ 2Hr Calcium 8.1 L Total Bilirubin Direct Bilirubin AST ALT Alkaline Phosphatase Ammonia Lactate Dehydrogenase Total Protein Albumin 08/03/21 08/03/21 05:58 05:58 MCV MCH MCHC RDW Plt Count MPV Absolute Nucleated RBC Nucleated RBC % (auto) PT INR Anion Gap Creatinine Estim Creat Clear Calc Estimated GFR POC Glucose Random Glucose Lactic Acid F/U @ 2Hr Calcium Total Bilirubin 6.5 H Direct Bilirubin 4.3 H AST 78 H ALT 29 Alkaline Phosphatase 98 Ammonia 56 H Lactate Dehydrogenase Total Protein 5.9 L Albumin 2.2 L Microbiology Microbiology Results: Microbiology 08/01/21 13:30 Blood Culture - Preliminary Blood - Venous No growth after 24 hours. 08/01/21 14:59 Blood Culture - Preliminary Blood - Venous No growth after 24 hours. 08/01/21 18:11 Urine Culture - Preliminary Urine clean catch - Urine nascimento top No growth to date. Assessment and Plan (1) Alcohol withdrawal: Status: Acute Plan This is a 55 year old male with history of alcohol dependence, withdrawal seizures, liver cirrhosis, DM, HTN who was brought to the emergency department by EMS due to lethargy found to have numerous abnormalities including decompensated liver failure, ascites, SAUL ?Decompensated liver cirrhosis with ascites and thrombocytopenia ?cirrhosis secondary to alcohol abuse ?meld score 29 ?Robby discriminant function 34.9, he does qualify for steroids but given concern over GI bleeding will hold off for now GI following paracentesis ordered for am Rocephin stopped no indication of infection noted ?follow Liver function and ammonia Probable GI bleed INR elevated, guiac positive; dried blood in mouth no other overt bleeding noted Octreotide stopped, lasix started follow CBC ? Toxic Metabolic encephalopathy/ hepatic encephalopathy ammonia 124 to 56, possible Wernicke encephalopathy will continue po lactulose; titrate to 2-3 BM daily thiamine 500 tid x2 days and then 250 daily for 5 days SAUL likely prerenal Improving follow BMP alcohol dependence with high risk for withdrawal ?history of alcohol withdrawal seizures in the past ?continue phenobarbital protocol ?seizure precautions ?supplementation with thiamine, folate care team evaluation pending ?high dose thiamine empirically for possible Wernicke encephalopathy coagulopathy r/t liver disease INR 1.8 received vit k in ED follow INR mild rhabdo cpk 489 IVF follow CPK hypoagnesemia r/t etoh abuse replace and follow Elevated lactic acid secondary to dehydration/ liver dysfunction/ metformin No evidence of sepsis IV fluid DM hold metformin SSI, POCs mood hold sertraline for now can resume when more awake HTN hold lisinopril for SAUL, hypotension dvt ppx - mechanical devices code status - presumed full code attending - dr. darby Quality Stroke Does the patient have a stroke diagnosis?: No VTE Prior VTE?: No VTE Risk Level:: Medical - moderate - high VTE Device Contraindication: N/A - Device Ordered VTE Drug Contraindication: Treatment Not Indicated
[2021-08-03 07:48] LABS: Glucose, Whole Blood 143 mg/dL (60-115)
[2021-08-03 07:58] VITALS: BP 114/74; PULSE 99; RESP 18; TEMP 36.8; O2SAT 94
[2021-08-03 08:00] LABS: Magnesium 1.3 mg/dL (1.6-2.6)
[2021-08-03] MEDS: Spironolactone 25 MG TABLET PO ×2 (10:44→18:07)
[2021-08-03] MEDS: Lactulose 20 GM/30 ML SOLUTION PO ×3 (10:44→21:55)
[2021-08-03] MEDS: PHENobarbitaL 15 MG TABLET 45 MG PO ×2 (10:45→21:54)
[2021-08-03] MEDS: Furosemide 20 MG TABLET PO (10:45)
[2021-08-03] MEDS: Folic Acid 1 MG TABLET PO (10:45)
[2021-08-03 11:53] VITALS: BP 114/63; PULSE 99; RESP 16; TEMP 36.8; O2SAT 95
[2021-08-03 12:13] LABS: Glucose, Whole Blood 174 mg/dL (60-115)
[2021-08-03] MEDS: Insulin Lispro 100 UNIT/ML 3 ML VIAL SUBCUT ×2 (12:30→18:07)
--- NOTE | 2021-08-03 14:32 | MHC.RECOVSUP ---
Recovery Support note: Patient is a 55 year old Croatian speaking male who presented to [facility] and was medically admitted. This pattern chart writer met with patient to discuss alcohol use and recovery supports. Patient was sleeping however his fiance woke him up. Patient's fiance was present during consultation. Patient reports drinking 2 large beers a day and that he has weaned his consumption down over time. Patient and fiance report he was drinking significantly more previously however they were unable to quantify the amount. Patient acknowledges the negative impact his drinking has had on his health. Patient reports he would like to maintain sobriety after discharge, citing his health as his primary motivation. Patient reports he was sober for 18 months several years ago. Patient reports he was able to do this by staying busy. When asked what he does in his free time, patient reports he has no free time. Discussed relapse prevention with patient. He reports that he has people he can reach out to for support if needed. Patient is not interested in information on AA. Patient has had a therapist in the past and found it helpful, he is open to receiving a referral to [facility]. This pattern chart writer will follow up with patient on 08/04 and will complete a referral to [facility] for ongoing counseling.
--- NOTE | 2021-08-03 15:16 | MHC.CM.PN ---
PTS SISTER CALLED STATING SHE IS THE HCP AND WANTS INFORMATION. CM EXPLAINED THERE WAS NO HCP ON FILE AND SINCE THE PT WAS ALERT AND ORIENTED, CM WOULD NOT BE ABLE TO SPEAK WITH HIM ANYWAY WITHOUT HIS PERMISSION. CM WENT TO ASK PT WHO DECLINED TO HAVE INFORMATION SHARED CM EXPLAINED TO SISTER THAT NO INFORMATION COULD BE SHARED PTS SISTER EXPRESSED FRUSTRATION, CM SUGGESTED SHE COME TO VISIT PT TO GET MORE INFORMATION FROM PT.
[2021-08-03 15:31] VITALS: BP 119/59; PULSE 84; RESP 16; TEMP 36.8; O2SAT 100
[2021-08-03] MEDS: 0.9 % Sodium Chloride Flush 3 ML SYRINGE IVFLUSH (16:01)
[2021-08-03 17:48] LABS: Glucose, Whole Blood 172 mg/dL (60-115)
[2021-08-03 19:18] VITALS: BP 123/80; PULSE 121; RESP 16; TEMP 37.4; O2SAT 94
[2021-08-03 21:52] LABS: Glucose, Whole Blood 137 mg/dL (60-115)
[2021-08-04] VITALS (12 sets, daily range): BP systolic 108–124; BP diastolic 56–78; PULSE 76–116; RESP 16–18; TEMP 36.3–37.5; O2SAT 90–98
[2021-08-04] MEDS: 0.9 % Sodium Chloride Flush 3 ML SYRINGE IVFLUSH ×2 (02:48→08:58)
[2021-08-04] MEDS: Omeprazole 40 MG CAPSULE.DR PO (05:30)
[2021-08-04 05:50] LABS: Ammonia 65 umol/L (13-55)
[2021-08-04 05:59] LABS: INTERNATIONAL NORM RATIO 1.8 (0.9-1.1); Prothrombin Time 20.9 SEC (9.9-13.0)
[2021-08-04 06:15] LABS: Alanine Aminotransferase 30 U/L (0-40); Albumin Level 2.2 g/dL (3.5-5.0); Alkaline Phosphatase 95 U/L (39-117); Anion Gap 9 (12-20); Aspartate Amino Transferase 87 U/L (5-37); Bilirubin Direct 4.5 mg/dL (0.0-0.5); Bilirubin Total 6.9 mg/dL (0.0-1.0); Blood Urea Nitrogen 18 mg/dL (9-16); Carbon Dioxide 31 mmol/L (22-29); Chloride 101 mmol/L (96-108); Creatinine Clr Calc Pharmacy 129.3; Estimated Glomerular Filt Rate > 60; Glucose Random 141 mg/dL (60-115); Potassium 3.5 mmol/L (3.3-5.1); Sodium 137 mmol/L (135-145)
[2021-08-04 07:30] LABS: Glucose, Whole Blood 132 mg/dL (60-115)
[2021-08-04] MEDS: Lactulose 20 GM/30 ML SOLUTION PO ×3 (08:57→22:48)
[2021-08-04] MEDS: Furosemide 20 MG TABLET PO (08:57)
[2021-08-04] MEDS: PHENobarbitaL 15 MG TABLET PO ×2 (08:58→22:49)
[2021-08-04] MEDS: Spironolactone 25 MG TABLET PO ×2 (08:58→18:14)
[2021-08-04] MEDS: Folic Acid 1 MG TABLET PO (08:58)
[2021-08-04] MEDS: Phytonadione (Vit K1) Oral 10 MG/ML AMPUL 5 MG PO (08:58)
--- NOTE | 2021-08-04 10:17 | MHC.CM.PN ---
EMR REVIEWED, PT ADMITTED W/HEPATIC ENCEPHALOPATHY, ETOH ABUSE, CM MET W/PT WHO REPORTS HE LIVES W/HIS S.O., PT REPORTS HE IS INDEPENDENT W/CARE HOWEVER USUES A CANE,WALKER AND W/C'S NEEDED, PT ALSO REPORTS GRAB BARS IN [place], PT DENIES HOME SERVICES, PT VERIFIES PCP IS MUMTAZ GAUTHIER, PFIZER VACCINE X3 AND REPORTS HIS SISTER RUBIO IS HIS HCP HOWEVER THERE IS NO COPY ON FILE, PT AGREEABLE TO COMPLETE A NEW ONE HE WOULD LIKE TO FOLLOW PT RECOMMENDATION AND GO TO STR, PT STATING, I THINK I NEED IT . PT GIVES VERBAL CONSENT FOR CM TO SPEAK W/SISTER RUBIO [facility] [phone] D/C PLAN: STR W/BLS TRANSPORT
--- NOTE | 2021-08-04 10:48 | P.PNIM_ITS ---
Subjective Subjective Date of Service: 08/04/21 Review of Systems Follow up GI bleed, ETOH encephalopathy More awake today no pain Physical Exam Vital Signs: Vital Signs: Last Vital Signs Temp 98.8 F 08/04/21 08:00 Pulse 116 H 08/04/21 09:30 Resp 18 08/04/21 08:00 BP 124/78 08/04/21 09:30 Pulse Ox 90 L 08/04/21 09:30 BMI result Body Mass Index 41.8 Appearing in no acute distress jaundice heart regular rate rhythm, clear S1, S2 positive bowel sounds, large abdomen mildly distended neuro patient is alert x3, no focal deficits Objective Data Active Medications Dextrose (Dextrose 50 % 25 Gm/50 Ml Syringe) 25 gm IVPUSH Q15M PRN; Protocol PRN Reason: per Hypoglycemia Standing Ord. Docusate Sodium (Docusate Sodium 100 Mg Capsule) 100 mg PO DAILY PRN PRN Reason: Constipation Folic Acid (Folic Acid 1 Mg Tablet) 1 mg PO DAILY [facility] Last Admin: 08/04/21 08:58 Dose: 1 mg Documented by: ALEXUS Furosemide (Furosemide 20 Mg Tablet) 20 mg PO DAILY [facility]; Protocol Last Admin: 08/04/21 08:57 Dose: 20 mg Documented by: ALEXUS Glucose (Glucose Gel 15 Gm Gel..Gram.) 15 gm PO Q15M PRN; Protocol PRN Reason: per Hypoglycemia Standing Ord. Insulin Human Lispro (Insulin Lispro 100 Unit/Ml 3 Ml Vial) 0 unit SUBCUT QIDACHS [facility]; Protocol Last Admin: 08/04/21 08:51 Dose: Not Given Documented by: ALEXUS Non-Admin Reason: No Insulin Coverage Lactulose (Lactulose 20 Gm/30 Ml Solution) 20 gm PO TID [facility] Last Admin: 08/04/21 08:57 Dose: 20 gm Documented by: ALEXUS Omeprazole (Omeprazole 40 Mg Capsule.Dr) 40 mg PO DAILY@0630 [facility] Last Admin: 08/04/21 05:30 Dose: 40 mg Documented by: MONTRELL Pharmacy Consult (Consult Rx Perform Med Rec) 1 each MISCELLANE ONCE PRN PRN Reason: Consult order Pharmacy Consult (Consult Rx Etoh Phenob Po Dose) 1 each MISCELLANE ONCE PRN; Protocol PRN Reason: Consult order Phenobarbital (Phenobarbital 15 Mg Tablet) 15 mg PO BID [facility] Stop: 08/05/21 21:01 Last Admin: 08/04/21 08:58 Dose: 15 mg Documented by: ALEXUS Phenobarbital (Phenobarbital 15 Mg Tablet) 15 mg PO DAILY [facility] Stop: 08/07/21 09:01 Sodium Chloride (0.9 % Sodium Chloride Flush 3 Ml Syringe) 3 ml IVFLUSH QSHIFT [facility] Last Admin: 08/04/21 08:58 Dose: 3 ml Documented by: ALEXUS Spironolactone (Spironolactone 25 Mg Tablet) 25 mg PO BID@0900,1800 [facility]; Protocol Last Admin: 08/04/21 08:58 Dose: 25 mg Documented by: ALEXUS Labs CBC & Chem 7: 08/03/21 05:58 08/04/21 05:33 Labs: Laboratory Results - last 24 hr 08/03/21 08/03/21 08/03/21 11:33 16:43 21:19 PT INR Anion Gap Estim Creat Clear Calc Estimated GFR POC Glucose 174 H 172 H 137 H Random Glucose Calcium Total Bilirubin Direct Bilirubin AST ALT Alkaline Phosphatase Ammonia Total Protein Albumin 08/04/21 08/04/21 08/04/21 05:33 05:33 05:33 PT 20.9 H INR 1.8 H Anion Gap Cancelled Estim Creat Clear Calc Cancelled Estimated GFR Cancelled POC Glucose Random Glucose Cancelled Calcium Cancelled Total Bilirubin Direct Bilirubin AST ALT Alkaline Phosphatase Ammonia 65 H Total Protein Albumin 08/04/21 08/04/21 05:33 07:26 PT INR Anion Gap 9 L Estim Creat Clear Calc 129.3 Estimated GFR > 60 POC Glucose 132 H Random Glucose 141 H Calcium 8.0 L Total Bilirubin 6.9 H Direct Bilirubin 4.5 H AST 87 H ALT 30 Alkaline Phosphatase 95 Ammonia Total Protein 6.0 L Albumin 2.2 L Microbiology Microbiology Results: Microbiology 08/01/21 13:30 Blood Culture - Preliminary Blood - Venous No growth after 48 hours. 08/01/21 14:59 Blood Culture - Preliminary Blood - Venous No growth after 48 hours. 08/01/21 18:11 Urine Culture - Final Urine clean catch - Urine nascimento top No growth. Assessment and Plan (1) Alcohol withdrawal: Status: Acute Plan This is a 55 year old male with history of alcohol dependence, withdrawal seizures, liver cirrhosis, DM, HTN who was brought to the emergency department by EMS due to lethargy found to have numerous abnormalities including decompensated liver failure, ascites, SAUL ?Decompensated liver cirrhosis with ascites and thrombocytopenia ?cirrhosis secondary to alcohol abuse ?meld score 29 ?Robby discriminant function 34.9, he does qualify for steroids but given concern over GI bleeding will hold off for now GI following Rocephin stopped no indication of infection noted ?follow Liver function and ammonia paracentesis pending Probable GI bleed INR elevated, guiac positive; dried blood in mouth no other overt bleeding noted Octreotide stopped, lasix started follow CBC ? Toxic Metabolic encephalopathy/ hepatic encephalopathy. mental status improving significantly ammonia 124 to 65, possible Wernicke encephalopathy will continue po lactulose; titrate to 2-3 BM daily thiamine 500 tid x2 days and then 250 daily for 5 days SAUL likely prerenal Improving follow BMP alcohol dependence with high risk for withdrawal ?history of alcohol withdrawal seizures in the past ?continue phenobarbital protocol ?seizure precautions ?supplementation with thiamine, folate care team evaluation pending ?high dose thiamine empirically for possible Wernicke encephalopathy coagulopathy r/t liver disease INR 1.8 received vit k follow INR mild rhabdo cpk 489 IVF follow CPK hypoagnesemia r/t etoh abuse replace and follow Elevated lactic acid secondary to dehydration/ liver dysfunction/ metformin No evidence of sepsis IV fluid DM hold metformin SSI, POCs mood hold sertraline for now can resume when more awake HTN hold lisinopril for SAUL, hypotension dvt ppx - mechanical devices code status - presumed full code attending Dr. hernandez Continue hospitalization for treatment of hepatic encephalopathy, paracentesis ordered and pending for today, necessitates close follow-up of liver enzymes Quality Stroke Does the patient have a stroke diagnosis?: No VTE Prior VTE?: No VTE Risk Level:: Medical - moderate - high VTE Device Contraindication: N/A - Device Ordered VTE Drug Contraindication: Treatment Not Indicated
--- NOTE | 2021-08-04 11:16 | HO.RADPN ---
RADIOLOGY Narrative Narrative: Rlq paracentesis using 5 fr angiocath. L dark reich/brown clear fluid. Diagnostic specimen sent as ordered. 50g Albumin given
[2021-08-04] MEDS: Lidocaine HCl 1 % MPF 5 ML VIAL 4 ML SUBCUT (12:09)
[2021-08-04 12:21] LABS: MN% 86.7 %; PMN% 13.3 %; RBC Peritoneal Fluid < 0.002 X10*6/uL; WBC Peritoneal Fluid 0.225 X10*3/uL
[2021-08-04 12:34] LABS: Glucose, Whole Blood 131 mg/dL (60-115)
[2021-08-04 12:47] LABS: BF Shift QC OK YES; Lymphocyte Peritoneal Fl 14 %; Monocytes Peritoneal Fl 8 %; Neutrophils Peritoneal Fluid 5 %; Other Peritioneal Fl 73 %
[2021-08-04 12:52] LABS: Glucose, Whole Blood 145 mg/dL (60-115)
--- NOTE | 2021-08-04 14:11 | P.CDIC_ITS ---
CDI Concurrent Query Documentation Clarification: PHYSICIAN'S DOCUMENTATION REQUEST Date of Query: 08/04/21 1411 Patient Name: Ritesh Balderas Admit Date: 08/01/21 Dear Doctor, A review of the medical record indicates additional documentation may be needed. Please review below and update the documentation accordingly. Clinical Indicators: Height: [] 5'8 Weight: [] 124.738 kg BMI: [] 41.8 Other Clinical Notes Supporting Significance of the BMI: Risk Factors/Clinical Indicators/Treatments Per ED note 08/01/21, obese If possible, please provide an associated diagnosis related to the abnormal BMI, such as: For a BMI >= 40: * Overweight * Obesity * Due to excess calories * Drug induced * Due to other cause * Severe or Morbid Obesity * With alveolar hypoventilation * Without alveolar hypoventilation Or: * BMI is not significant * Other (please specify) * Unable to determine Use of terms such as suspected, likely, concern for, or probable (associated with a specific diagnosis that is being evaluated, monitored, or treated as if it exists) are acceptable and can be coded in the inpatient setting, when documented at the time of discharge. Thank you, Tamanna Gillette RN Extension: [phone] Please use your independent medical judgment in providing your response. THIS QUERY IS PART OF THE PERMANENT MEDICAL RECORD Provider Response: Morbid Obesity
[2021-08-04 16:18] LABS: Glucose, Whole Blood 137 mg/dL (60-115)
[2021-08-04 20:26] LABS: Glucose, Whole Blood 118 mg/dL (60-115)
[2021-08-05] VITALS (7 sets, daily range): BP systolic 115–124; BP diastolic 56–68; PULSE 69–106; RESP 17–18; TEMP 36.9–37.2; O2SAT 94–99
[2021-08-05 04:32] LABS: pH Peritoneal Fluid 7.59
[2021-08-05 04:34] LABS: Albumin Peritoneal Fluid 0.6
[2021-08-05 04:37] LABS: LDH Peritoneal Fluid 60
[2021-08-05 04:38] LABS: Amylase Peritoneal Fluid 17
[2021-08-05 04:41] LABS: Glucose Peritoneal Fluid 151; Total Protein Peritoneal Fluid 1.6
[2021-08-05] MEDS: Omeprazole 40 MG CAPSULE.DR PO (06:13)
[2021-08-05 06:54] LABS: INTERNATIONAL NORM RATIO 2.1 (0.9-1.1); Prothrombin Time 24.5 SEC (9.9-13.0)
[2021-08-05 07:33] LABS: Glucose, Whole Blood 97 mg/dL (60-115)
[2021-08-05] MEDS: Lactulose 20 GM/30 ML SOLUTION PO ×3 (08:07→22:32)
[2021-08-05] MEDS: 0.9 % Sodium Chloride Flush 3 ML SYRINGE IVFLUSH ×3 (08:08→22:32)
[2021-08-05] MEDS: Furosemide 20 MG TABLET PO (08:08)
[2021-08-05] MEDS: Spironolactone 25 MG TABLET PO ×2 (08:08→17:45)
[2021-08-05] MEDS: PHENobarbitaL 15 MG TABLET PO ×2 (08:08→22:32)
[2021-08-05] MEDS: Folic Acid 1 MG TABLET PO (08:08)
--- NOTE | 2021-08-05 09:00 | P.PNIM_ITS ---
Subjective Subjective Date of Service: 08/06/21 Review of Systems Follow up GI bleed, ETOH encephalopathy More awake today no pain Physical Exam Vital Signs: Vital Signs: Last Vital Signs Temp 98.5 F 08/05/21 07:47 Pulse 96 08/05/21 07:47 Resp 17 08/05/21 07:47 BP 118/67 08/05/21 07:47 Pulse Ox 97 08/05/21 07:47 BMI result Body Mass Index 41.8 Appearing in no acute distress Jaundice lung sounds are clear to auscultation heart regular rate rhythm, clear S1, S2 positive bowel sounds, abdomen is soft, nontender, large abdomen, down from yesterday neuro patient is alert x3, no focal deficits Objective Data Active Medications Dextrose (Dextrose 50 % 25 Gm/50 Ml Syringe) 25 gm IVPUSH Q15M PRN; Protocol PRN Reason: per Hypoglycemia Standing Ord. Docusate Sodium (Docusate Sodium 100 Mg Capsule) 100 mg PO DAILY PRN PRN Reason: Constipation Folic Acid (Folic Acid 1 Mg Tablet) 1 mg PO DAILY [facility] Last Admin: 08/05/21 08:08 Dose: 1 mg Documented by: DALLAS Furosemide (Furosemide 20 Mg Tablet) 20 mg PO DAILY [facility]; Protocol Last Admin: 08/05/21 08:08 Dose: 20 mg Documented by: DALLAS Glucose (Glucose Gel 15 Gm Gel..Gram.) 15 gm PO Q15M PRN; Protocol PRN Reason: per Hypoglycemia Standing Ord. Insulin Human Lispro (Insulin Lispro 100 Unit/Ml 3 Ml Vial) 0 unit SUBCUT QID ACHS [facility]; Protocol Last Admin: 08/05/21 07:41 Dose: Not Given Documented by: DALLAS Non-Admin Reason: No Insulin Coverage Lactulose (Lactulose 20 Gm/30 Ml Solution) 20 gm PO TID [facility] Last Admin: 08/05/21 08:07 Dose: 20 gm Documented by: DALLAS Omeprazole (Omeprazole 40 Mg Capsule.) 40 mg PO DAILY@0630 [facility] Last Admin: 08/05/21 06:13 Dose: 40 mg Documented by: RAD Pharmacy Consult (Consult Rx Perform Med Rec) 1 each MISCELLANE ONCE PRN PRN Reason: Consult order Pharmacy Consult (Consult Rx Etoh Phenob Po Dose) 1 each MISCELLANE ONCE PRN; Protocol PRN Reason: Consult order Phenobarbital (Phenobarbital 15 Mg Tablet) 15 mg PO BID [facility] Stop: 08/05/21 21:01 Last Admin: 08/05/21 08:08 Dose: 15 mg Documented by: DALLAS Phenobarbital (Phenobarbital 15 Mg Tablet) 15 mg PO DAILY [facility] Stop: 08/07/21 09:01 Sodium Chloride (0.9 % Sodium Chloride Flush 3 Ml Syringe) 3 ml IVFLUSH QSHIFT [facility] Last Admin: 08/05/21 08:08 Dose: 3 ml Documented by: DALLAS Spironolactone (Spironolactone 25 Mg Tablet) 25 mg PO BID@0900,1800 [facility]; Protocol Last Admin: 08/05/21 08:08 Dose: 25 mg Documented by: DALLAS Labs CBC & Chem 7: 08/05/21 11:02 08/06/21 06:18 Labs: Laboratory Results - last 24 hr 08/04/21 08/04/21 08/04/21 11:00 11:00 11:00 PT INR POC Glucose Peritoneal pH 7.59 Peritoneal WBC 0.225 Peritoneal RBC < 0.002 Periton Neutrophils 5 Periton Lymphocytes 14 Peritoneal Monocytes 8 Peritoneal Other Cells 73 Peritoneal Tot Protein 1.6 Peritoneal Albumin 0.6 Peritoneal LDH 60 Peritoneal Glucose 151 Peritoneal Amylase 17 08/04/21 08/04/21 08/04/21 12:26 12:46 15:18 PT INR POC Glucose 131 H 145 H 137 H Peritoneal pH Peritoneal WBC Peritoneal RBC Periton Neutrophils Periton Lymphocytes Peritoneal Monocytes Peritoneal Other Cells Peritoneal Tot Protein Peritoneal Albumin Peritoneal LDH Peritoneal Glucose Peritoneal Amylase 08/04/21 08/05/21 08/05/21 19:19 06:08 07:14 PT 24.5 H INR 2.1 H POC Glucose 118 H 97 Peritoneal pH Peritoneal WBC Peritoneal RBC Periton Neutrophils Periton Lymphocytes Peritoneal Monocytes Peritoneal Other Cells Peritoneal Tot Protein Peritoneal Albumin Peritoneal LDH Peritoneal Glucose Peritoneal Amylase Microbiology Microbiology Results: Microbiology 08/04/21 11:00 Gram Stain - Final Abdomen - Peritoneal Routine Culture - Preliminary No growth to date. Anaerobic Culture - Preliminary No growth to date. Assessment and Plan (1) Alcohol withdrawal: Status: Acute Plan This is a 55 year old male with history of alcohol dependence, withdrawal seizures, liver cirrhosis, DM, HTN who was brought to the emergency department by EMS due to lethargy found to have numerous abnormalities including decompensated liver failure, ascites, SAUL ?Decompensated liver cirrhosis with ascites and thrombocytopenia ?cirrhosis secondary to alcohol abuse ?meld score 29 ?Robby discriminant function 34.9, he does qualify for steroids but given concern over GI bleeding will hold off for now GI following Rocephin stopped no indication of infection noted ?follow Liver function and ammonia paracentesis 10 liters out Probable GI bleed INR elevated, guiac positive; dried blood in mouth no other overt bleeding noted Octreotide stopped, lasix started follow CBC ? Toxic Metabolic encephalopathy/ hepatic encephalopathy. mental status improving significantly ammonia 124 to 65, possible Wernicke encephalopathy will continue po lactulose; titrate to 2-3 BM daily thiamine 500 tid x2 days and then 250 daily for 5 days SAUL. resolved likely prerenal Improving follow BMP alcohol dependence with high risk for withdrawal ?history of alcohol withdrawal seizures in the past ?continue phenobarbital protocol ?seizure precautions ?supplementation with thiamine, folate care team evaluation pending ?high dose thiamine empirically for possible Wernicke encephalopathy coagulopathy r/t liver disease INR 2.1 received vit k follow INR mild rhabdo cpk 489 IVF follow CPK hypoagnesemia r/t etoh abuse replace and follow Elevated lactic acid secondary to dehydration/ liver dysfunction/ metformin No evidence of sepsis IV fluid DM hold metformin SSI, POCs mood hold sertraline for now can resume when more awake HTN hold lisinopril for ASUL, hypotension dvt ppx - mechanical devices code status - presumed full code attending Dr. hernandez Continue hospitalization for treatment of hepatic encephalopathy, still with elevated liver enzymes , necessitates close follow-up of labs Quality Stroke Does the patient have a stroke diagnosis?: No VTE Prior VTE?: No VTE Risk Level:: Medical - moderate - high VTE Device Contraindication: N/A - Device Ordered VTE Drug Contraindication: Treatment Not Indicated
[2021-08-05 11:12] LABS: Hematocrit 27.9 % (42.0-52.0); Hemoglobin 9.8 g/dl (14.0-18.0); Mean Corpuscular HGB Conc 35.1 g/dl (31.0-36.0); Mean Corpuscular Hemoglobin 38.6 pg (27.0-33.0); Mean Corpuscular Volume 109.8 fL (80.0-98.0); Mean Platelet Volume 9.8 fL (9.4-12.4); Red Blood Count 2.54 X10*6/uL (4.60-5.80); Red Cell Distribution Width 15.9 % (11.0-16.0); White Blood Count 6.1 X10*3/uL (4.8-10.8)
[2021-08-05 11:16] LABS: Platelet Count 55 X10*3/uL (160-400)
[2021-08-05 11:31] LABS: Alanine Aminotransferase 26 U/L (0-40); Albumin Level 2.3 g/dL (3.5-5.0); Alkaline Phosphatase 81 U/L (39-117); Aspartate Amino Transferase 70 U/L (5-37); Bilirubin Direct 4.9 mg/dL (0.0-0.5); Bilirubin Total 8.1 mg/dL (0.0-1.0); Total Protein 5.7 g/dL (6.5-8.0)
[2021-08-05 11:39] LABS: Magnesium 0.7 mg/dL (1.6-2.6)
[2021-08-05 11:44] LABS: Glucose, Whole Blood 114 mg/dL (60-115)
[2021-08-05] MEDS: Magnesium Oxide 400 MG TABLET PO (12:24)
[2021-08-05] MEDS: Magnesium Sulfate/H2O 2 GM/50 ML PIGGYBACK IV ×2 (13:19→15:50)
[2021-08-05 16:10] LABS: Glucose, Whole Blood 132 mg/dL (60-115)
[2021-08-05] MEDS: Phytonadione (Vit K1) 10 MG in 0.9 % Sodium Chloride 50 ML 51 MG IV (22:31)
[2021-08-05 23:03] LABS: Glucose, Whole Blood 154 mg/dL (60-115)
[2021-08-06] VITALS (7 sets, daily range): BP systolic 106–128; BP diastolic 55–70; PULSE 87–113; RESP 17–18; TEMP 36.4–37.2; O2SAT 94–98
[2021-08-06] MEDS: Omeprazole 40 MG CAPSULE.DR PO (05:57)
[2021-08-06 06:42] LABS: Ammonia 46 umol/L (13-55)
[2021-08-06 06:55] LABS: INTERNATIONAL NORM RATIO 1.9 (0.9-1.1); Prothrombin Time 21.6 SEC (9.9-13.0)
[2021-08-06 07:01] LABS: Alanine Aminotransferase 25 U/L (0-40); Albumin Level 2.4 g/dL (3.5-5.0); Alkaline Phosphatase 91 U/L (39-117); Aspartate Amino Transferase 67 U/L (5-37); Bilirubin Direct 4.9 mg/dL (0.0-0.5); Bilirubin Total 8.2 mg/dL (0.0-1.0)
[2021-08-06 07:03] LABS: Anion Gap 10 (12-20); Blood Urea Nitrogen 7 mg/dL (9-16); Carbon Dioxide 33 mmol/L (22-29); Chloride 99 mmol/L (96-108); Creatinine Clr Calc Pharmacy 150.8; Estimated Glomerular Filt Rate > 60; Glucose Random 131 mg/dL (60-115); Potassium 3.7 mmol/L (3.3-5.1); Sodium 138 mmol/L (135-145)
[2021-08-06 07:20] LABS: Glucose, Whole Blood 115 mg/dL (60-115)
[2021-08-06 08:55] LABS: Magnesium 1.3 mg/dL (1.6-2.6)
--- NOTE | 2021-08-06 09:20 | HO.PM.IMPN ---
Subjective Subjective Date of Service: 08/06/21 Review of Systems Follow up GI bleed, ETOH encephalopathy More awake today no pain Physical Exam Vital Signs: Vital Signs: Last Vital Signs Temp 98.0 F 08/06/21 07:32 Pulse 109 H 08/06/21 07:32 Resp 17 08/06/21 07:32 BP 128/68 08/06/21 07:32 Pulse Ox 97 08/06/21 07:32 BMI result Body Mass Index 41.8 Appearing in no acute distress, jaundice lung sounds are clear to auscultation heart regular rate rhythm, clear S1, S2 positive bowel sounds, abdomen is soft, nontender, round abd neuro patient is alert x3, no focal deficits Objective Data Active Medications Dextrose (Dextrose 50 % 25 Gm/50 Ml Syringe) 25 gm IVPUSH Q15M PRN; Protocol PRN Reason: per Hypoglycemia Standing Ord. Docusate Sodium (Docusate Sodium 100 Mg Capsule) 100 mg PO DAILY PRN PRN Reason: Constipation Folic Acid (Folic Acid 1 Mg Tablet) 1 mg PO DAILY [facility] Last Admin: 08/05/21 08:08 Dose: 1 mg Documented by: DALLAS Furosemide (Furosemide 20 Mg Tablet) 20 mg PO DAILY [facility]; Protocol Last Admin: 08/05/21 08:08 Dose: 20 mg Documented by: DALLAS Glucose (Glucose Gel 15 Gm Gel..Gram.) 15 gm PO Q15M PRN; Protocol PRN Reason: per Hypoglycemia Standing Ord. Magnesium Sulfate (Magnesium Sulfate/H2o) 2 gm in 50 mls @ 25 mls/hr IV ONCE ONE Stop: 08/06/21 11:18 Insulin Human Lispro (Insulin Lispro 100 Unit/Ml 3 Ml Vial) 0 unit SUBCUT QIDACHS [facility]; Protocol Last Admin: 08/06/21 08:15 Dose: Not Given Documented by: DALLAS Non-Admin Reason: No Insulin Coverage Lactulose (Lactulose 20 Gm/30 Ml Solution) 20 gm PO TID [facility] Last Admin: 08/05/21 22:32 Dose: 20 gm Documented by: RAD Magnesium Oxide (Magnesium Oxide 400 Mg Tablet) 400 mg PO DAILY [facility] Last Admin: 08/05/21 12:24 Dose: 400 mg Documented by: DALLAS Omeprazole (Omeprazole 40 Mg Capsule.) 40 mg PO DAILY@0630 [facility] Last Admin: 08/06/21 05:57 Dose: 40 mg Documented by: RAD Pharmacy Consult (Consult Rx Perform Med Rec) 1 each MISCELLANE ONCE PRN PRN Reason: Consult order Pharmacy Consult (Consult Rx Etoh Phenob Po Dose) 1 each MISCELLANE ONCE PRN; Protocol PRN Reason: Consult order Phenobarbital (Phenobarbital 15 Mg Tablet) 15 mg PO DAILY [facility] Stop: 08/07/21 09:01 Sodium Chloride (0.9 % Sodium Chloride Flush 3 Ml Syringe) 3 ml IVFLUSH QSHIFT [facility] Last Admin: 08/05/21 22:32 Dose: 3 ml Documented by: RAD Spironolactone (Spironolactone 25 Mg Tablet) 25 mg PO BID@0900,1800 [facility]; Protocol Last Admin: 08/05/21 17:45 Dose: 25 mg Documented by: DALLAS Labs CBC & Chem 7: 08/05/21 11:02 08/06/21 06:18 Labs: Laboratory Results - last 24 hr 08/05/21 08/05/21 08/05/21 11:02 11:02 11:02 MCV 109.8 H MCH 38.6 H MCHC 35.1 RDW 15.9 Plt Count 55 L MPV 9.8 Absolute Nucleated RBC 0.000 Nucleated RBC % (auto) 0.0 PT INR Anion Gap Estim Creat Clear Calc Estimated GFR POC Glucose Random Glucose Calcium Magnesium 0.7 L* Total Bilirubin 8.1 H Direct Bilirubin 4.9 H AST 70 H ALT 26 Alkaline Phosphatase 81 Ammonia Total Protein 5.7 L Albumin 2.3 L 08/05/21 08/05/21 08/05/21 11:22 15:06 20:04 MCV MCH MCHC RDW Plt Count MPV Absolute Nucleated RBC Nucleated RBC % (auto) PT INR Anion Gap Estim Creat Clear Calc Estimated GFR POC Glucose 114 132 H 154 H Random Glucose Calcium Magnesium Total Bilirubin Direct Bilirubin AST ALT Alkaline Phosphatase Ammonia Total Protein Albumin 08/06/21 08/06/21 08/06/21 06:18 06:18 06:18 MCV MCH MCHC RDW Plt Count MPV Absolute Nucleated RBC Nucleated RBC % (auto) PT 21.6 H INR 1.9 H Anion Gap 10 L Estim Creat Clear Calc 150.8 Estimated GFR > 60 POC Glucose Random Glucose 131 H Calcium 8.0 L Magnesium 1.3 L* Total Bilirubin 8.2 H Direct Bilirubin 4.9 H AST 67 H ALT 25 Alkaline Phosphatase 91 Ammonia Total Protein 6.0 L Albumin 2.4 L 08/06/21 08/06/21 06:18 07:16 MCV MCH MCHC RDW Plt Count MPV Absolute Nucleated RBC Nucleated RBC % (auto) PT INR Anion Gap Estim Creat Clear Calc Estimated GFR POC Glucose 115 Random Glucose Calcium Magnesium Total Bilirubin Direct Bilirubin AST ALT Alkaline Phosphatase Ammonia 46 Total Protein Albumin Microbiology Microbiology Results: Microbiology 08/04/21 11:00 Gram Stain - Final Abdomen - Peritoneal Routine Culture - Final No growth after 2 days Anaerobic Culture - Preliminary No growth to date. Assessment and Plan (1) Alcohol withdrawal: Status: Acute Plan This is a 55 year old male with history of alcohol dependence, withdrawal seizures, liver cirrhosis, DM, HTN who was brought to the emergency department by EMS due to lethargy found to have numerous abnormalities including decompensated liver failure, ascites, SAUL ?Decompensated liver cirrhosis with ascites and thrombocytopenia ?cirrhosis secondary to alcohol abuse ?meld score 29 ?Maddrey discriminant function 34.9, he does qualify for steroids but given concern over GI bleeding will hold off for now GI following ?follow Liver function and ammonia paracentesis 10 liters out Probable GI bleed INR elevated, guiac positive; dried blood in mouth no other overt bleeding noted Octreotide stopped, lasix started follow CBC ? Toxic Metabolic encephalopathy/ hepatic encephalopathy. mental status improving significantly ammonia 124 to 65, possible Wernicke encephalopathy will continue po lactulose; titrate to 2-3 BM daily thiamine 500 tid x2 days and then 250 daily for 5 days completed SAUL. resolved likely prerenal Improving follow BMP alcohol dependence with high risk for withdrawal ?history of alcohol withdrawal seizures in the past ?continue phenobarbital protocol ?seizure precautions ?supplementation with thiamine, folate care team evaluation pending ?high dose thiamine empirically for possible Wernicke encephalopathy coagulopathy r/t liver disease INR 1.9 received vit k follow INR mild rhabdo follow CPK hypomagnesemia r/t etoh abuse replace and follow Elevated lactic acid secondary to dehydration/ liver dysfunction/ metformin No evidence of sepsis IV fluid DM hold metformin SSI, POCs mood hold sertraline for now can resume when more awake HTN hold lisinopril for SAUL, hypotension dvt ppx - mechanical devices code status - presumed full code attending Dr. hernandez Continue hospitalization for treatment of hepatic encephalopathy, still with elevated liver enzymes , necessitates close follow-up of labs Quality Stroke Does the patient have a stroke diagnosis?: No VTE Prior VTE?: No VTE Risk Level:: Medical - moderate - high VTE Device Contraindication: N/A - Device Ordered VTE Drug Contraindication: Treatment Not Indicated
[2021-08-06] MEDS: Magnesium Oxide 400 MG TABLET PO (09:55)
[2021-08-06] MEDS: Furosemide 20 MG TABLET PO (09:55)
[2021-08-06] MEDS: Spironolactone 25 MG TABLET PO ×2 (09:55→19:29)
[2021-08-06] MEDS: Folic Acid 1 MG TABLET PO (09:55)
[2021-08-06] MEDS: PHENobarbitaL 15 MG TABLET PO (09:55)
[2021-08-06] MEDS: Lactulose 20 GM/30 ML SOLUTION PO ×3 (09:56→19:30)
[2021-08-06] MEDS: 0.9 % Sodium Chloride Flush 3 ML SYRINGE IVFLUSH ×3 (09:56→19:30)
[2021-08-06] MEDS: Magnesium Sulfate/H2O 2 GM/50 ML PIGGYBACK IV (09:57)
[2021-08-06 11:23] LABS: Glucose, Whole Blood 189 mg/dL (60-115)
[2021-08-06] MEDS: Insulin Lispro 100 UNIT/ML 3 ML VIAL SUBCUT ×3 (11:59→19:30)
[2021-08-06 16:04] LABS: Glucose, Whole Blood 175 mg/dL (60-115)
[2021-08-06 19:46] LABS: Glucose, Whole Blood 163 mg/dL (60-115)
[2021-08-07 03:37] VITALS: BP 107/68; PULSE 107; RESP 18; TEMP 37.6; O2SAT 95
[2021-08-07] MEDS: Omeprazole 40 MG CAPSULE.DR PO (05:53)
[2021-08-07 07:02] LABS: Alanine Aminotransferase 28 U/L (0-40); Albumin Level 2.3 g/dL (3.5-5.0); Alkaline Phosphatase 102 U/L (39-117); Anion Gap 10 (12-20); Aspartate Amino Transferase 67 U/L (5-37); Bilirubin Direct 4.1 mg/dL (0.0-0.5); Bilirubin Total 6.4 mg/dL (0.0-1.0); Blood Urea Nitrogen 7 mg/dL (9-16); Calcium 7.8 mg/dL (8.4-10.2); Carbon Dioxide 31 mmol/L (22-29); Chloride 99 mmol/L (96-108); Creatinine Clr Calc Pharmacy 164.5; Estimated Glomerular Filt Rate > 60; Glucose Random 142 mg/dL (60-115); Potassium 3.2 mmol/L (3.3-5.1); Sodium 137 mmol/L (135-145); Total Protein 5.8 g/dL (6.5-8.0)
[2021-08-07 07:32] VITALS: BP 129/79; PULSE 105; RESP 17; TEMP 37.2; O2SAT 96
[2021-08-07 07:38] LABS: Glucose, Whole Blood 122 mg/dL (60-115)
[2021-08-07] MEDS: PHENobarbitaL 15 MG TABLET PO (10:21)
[2021-08-07] MEDS: Furosemide 20 MG TABLET PO (10:21)
[2021-08-07] MEDS: Magnesium Oxide 400 MG TABLET PO (10:21)
[2021-08-07] MEDS: Spironolactone 25 MG TABLET PO ×2 (10:21→16:33)
[2021-08-07] MEDS: Folic Acid 1 MG TABLET PO (10:22)
[2021-08-07] MEDS: Lactulose 20 GM/30 ML SOLUTION PO ×3 (10:22→21:54)
[2021-08-07] MEDS: 0.9 % Sodium Chloride Flush 3 ML SYRINGE IVFLUSH ×3 (10:22→21:54)
[2021-08-07 10:43] VITALS: BP 129/79; PULSE 105; O2SAT 96
[2021-08-07 11:35] VITALS: BP 132/74; PULSE 107; RESP 16; TEMP 36.8; O2SAT 98
--- NOTE | 2021-08-07 11:50 | HO.PM.IMPN ---
Subjective Subjective Date of Service: 08/07/21 Interval History: seen and examined this morning follow up for decompensated liver disease no overnight events no complaints this morning Review of Systems Review of Systems: Yes all other systems are reviewed and are negative Constitutional Constitutional: Denies chills and Denies fever(s) Cardiovascular Cardiovascular: Denies chest pain, Denies palpitations and Denies dyspnea Respiratory Respiratory: Denies cough and Denies dyspnea Gastrointestinal Gastrointestinal: Denies abdominal pain, Denies nausea and Denies vomiting Endocrine Endocrine: Denies palpitations Physical Exam Vital Signs: Vital Signs: Last Vital Signs Temp 98.2 F 08/07/21 11:35 Pulse 107 H 08/07/21 11:35 Resp 16 08/07/21 11:35 BP 132/74 08/07/21 11:35 Pulse Ox 98 08/07/21 11:35 BMI result Body Mass Index 41.8 Const: General: cooperative, comfortable, no acute distress, alert and awake Nutritional Appearance: obese Orientation/consciousness: patient oriented x3 Resp: Effort & Inspection: normal respiratory effort and able to speak in complete sentences Auscultation: clear to auscultation bilaterally Cardio: Rate: tachycardic Heart sounds: S1 normal heart sound present and S2 normal heart sound present GI: Inspection: No distended Palpation (GI): Soft to palpation and nontender Neuro: General: patient oriented x3 Extrem: General: Yes no pedal edema Objective Data Active Medications Dextrose (Dextrose 50 % 25 Gm/50 Ml Syringe) 25 gm IVPUSH Q15M PRN; Protocol PRN Reason: per Hypoglycemia Standing Ord. Docusate Sodium (Docusate Sodium 100 Mg Capsule) 100 mg PO DAILY PRN PRN Reason: Constipation Folic Acid (Folic Acid 1 Mg Tablet) 1 mg PO DAILY [facility] Last Admin: 08/07/21 10:22 Dose: 1 mg Documented by: VANIA Furosemide (Furosemide 20 Mg Tablet) 20 mg PO DAILY [facility]; Protocol Last Admin: 08/07/21 10:21 Dose: 20 mg Documented by: VANIA Glucose (Glucose Gel 15 Gm Gel..Gram.) 15 gm PO Q15M PRN; Protocol PRN Reason: per Hypoglycemia Standing Ord. Insulin Human Lispro (Insulin Lispro 100 Unit/Ml 3 Ml Vial) 0 unit SUBCUT QIDACHS [facility]; Protocol Last Admin: 08/07/21 08:04 Dose: Not Given Documented by: VANIA Non-Admin Reason: No Insulin Coverage Lactulose (Lactulose 20 Gm/30 Ml Solution) 20 gm PO TID [facility] Last Admin: 08/07/21 10:22 Dose: 20 gm Documented by: VANIA Magnesium Oxide (Magnesium Oxide 400 Mg Tablet) 400 mg PO DAILY [facility] Last Admin: 08/07/21 10:21 Dose: 400 mg Documented by: VANIA Omeprazole (Omeprazole 40 Mg Capsule.Dr) 40 mg PO DAILY@0630 [facility] Last Admin: 08/07/21 05:53 Dose: 40 mg Documented by: CYRIL Pharmacy Consult (Consult Rx Perform Med Rec) 1 each MISCELLANE ONCE PRN PRN Reason: Consult order Pharmacy Consult (Consult Rx Etoh Phenob Po Dose) 1 each MISCELLANE ONCE PRN; Protocol PRN Reason: Consult order Potassium Chloride (Potassium Chloride Packet 20 Meq Packet) 40 meq PO ONCE ONE Stop: 08/07/21 11:49 Sodium Chloride (0.9 % Sodium Chloride Flush 3 Ml Syringe) 3 ml IVFLUSH QSHIFT [facility] Last Admin: 08/07/21 10:22 Dose: 3 ml Documented by: VANIA Spironolactone (Spironolactone 25 Mg Tablet) 25 mg PO BID@0900,1800 [facility]; Protocol Last Admin: 08/07/21 10:21 Dose: 25 mg Documented by: VANIA Labs CBC & Chem 7: 08/05/21 11:02 08/07/21 05:46 Labs: Laboratory Results - last 24 hr 08/06/21 08/06/21 08/07/21 16:00 19:23 05:46 Anion Gap 10 L Estim Creat Clear Calc 164.5 Estimated GFR > 60 POC Glucose 175 H 163 H Random Glucose 142 H Calcium 7.8 L Total Bilirubin Direct Bilirubin AST ALT Alkaline Phosphatase Total Protein Albumin 08/07/21 08/07/21 05:46 07:31 Anion Gap Estim Creat Clear Calc Estimated GFR POC Glucose 122 H Random Glucose Calcium Total Bilirubin 6.4 H Direct Bilirubin 4.1 H AST 67 H ALT 28 Alkaline Phosphatase 102 Total Protein 5.8 L Albumin 2.3 L Microbiology Microbiology Results: Microbiology 08/04/21 11:00 Gram Stain - Final Abdomen - Peritoneal Routine Culture - Final No growth after 2 days Anaerobic Culture - Preliminary No growth to date. 05/13/22 13:30 Blood Culture - Final Blood - Venous No growth after 5 days. 08/01/21 14:59 Blood Culture - Final Blood - Venous No growth after 5 days. Assessment and Plan (1) Acute hepatic encephalopathy: Status: Acute Plan This is a 55 year old male with history of alcohol dependence, withdrawal seizures, liver cirrhosis, DM, HTN who was brought to the emergency department by EMS due to lethargy found to have numerous abnormalities including decompensated liver failure, ascites, SAUL ?Decompensated liver cirrhosis with ascites and thrombocytopenia ?cirrhosis secondary to alcohol abuse ?meld score 29 on admission ?Maddrey discriminant function 34.9, he does qualify for steroids but given concern over GI bleeding was not treated with prednisone Seen by GI Rocephin stopped no indication of infection noted ?LFTs trending down paracentesis 10 liters out started on po lasix/aldactone Probable GI bleed admitted with INR elevated, guiac positive; dried blood in mouth no other overt bleeding noted since seen by GI, no need for EGD Octreotide stopped H/H has remained stable follow CBC started on po PPI ? Toxic Metabolic encephalopathy/ hepatic encephalopathy. mental status improving significantly ammonia 124 to 46, possible Wernicke encephalopathy will continue po lactulose; titrate to 2-3 BM daily initially treated with high dose thiamine alcohol dependence with high risk for withdrawal ?history of alcohol withdrawal seizures in the past ?continue phenobarbital protocol ?seizure precautions ?supplementation with thiamine, folate seen by care team ?high dose thiamine empirically for possible Wernicke encephalopathy SUAL. resolved likely prerenal Improving follow BMP coagulopathy r/t liver disease INR 2.1 received vit k mild rhabdo cpk trending down after IVF hypoagnesemia/hypokalemia r/t etoh abuse replace and follow Elevated lactic acid secondary to dehydration/ liver dysfunction/ metformin No evidence of sepsis treated with IVF DM hold metformin SSI, POCs mood hold sertraline for now can resume when more awake HTN hold lisinopril for SAUL, hypotension dvt ppx - mechanical devices code status -full code attending Dr. hernandez dispo: seen by PT, rec STR Continue hospitalization for treatment of hepatic encephalopathy, still with elevated liver enzymes , necessitates close follow-up of labs Quality Stroke Does the patient have a stroke diagnosis?: No VTE Prior VTE?: No VTE Risk Level:: Medical - moderate - high VTE Device Contraindication: N/A - Device Ordered VTE Drug Contraindication: Treatment Not Indicated
[2021-08-07 11:57] LABS: Glucose, Whole Blood 150 mg/dL (60-115)
[2021-08-07 12:13] LABS: Magnesium 1.4 mg/dL (1.6-2.6)
[2021-08-07] MEDS: Magnesium Sulfate/H2O 2 GM/50 ML PIGGYBACK IV (12:34)
[2021-08-07] MEDS: Potassium Chloride Packet 20 MEQ PACKET 40 MEQ PO (12:34)
[2021-08-07 16:00] VITALS: BP 122/79; PULSE 106; RESP 18; TEMP 36.8; O2SAT 97
[2021-08-07 16:23] LABS: Glucose, Whole Blood 167 mg/dL (60-115)
[2021-08-07] MEDS: Insulin Lispro 100 UNIT/ML 3 ML VIAL SUBCUT (16:33)
[2021-08-07 20:00] VITALS: BP 115/78; PULSE 107; RESP 17; TEMP 36.3; O2SAT 96
[2021-08-07 20:52] LABS: Glucose, Whole Blood 137 mg/dL (60-115)
[2021-08-08] VITALS (8 sets, daily range): BP systolic 107–122; BP diastolic 55–74; PULSE 102–119; RESP 14–18; TEMP 36.6–37.1; O2SAT 93–99
[2021-08-08] MEDS: Omeprazole 40 MG CAPSULE.DR PO (05:17)
[2021-08-08 07:15] LABS: Anion Gap 9 (12-20); Blood Urea Nitrogen 7 mg/dL (9-16); Calcium 7.8 mg/dL (8.4-10.2); Carbon Dioxide 30 mmol/L (22-29); Chloride 100 mmol/L (96-108); Creatinine Clr Calc Pharmacy 162.1; Estimated Glomerular Filt Rate > 60; Glucose Random 178 mg/dL (60-115); Magnesium 1.4 mg/dL (1.6-2.6); Potassium 3.8 mmol/L (3.3-5.1); Sodium 135 mmol/L (135-145)
[2021-08-08 07:46] LABS: Glucose, Whole Blood 160 mg/dL (60-115)
[2021-08-08] MEDS: Magnesium Oxide 400 MG TABLET PO ×3 (08:06→21:09)
[2021-08-08] MEDS: Folic Acid 1 MG TABLET PO (08:06)
[2021-08-08] MEDS: Magnesium Sulfate/H2O 2 GM/50 ML PIGGYBACK IV (08:06)
[2021-08-08] MEDS: Furosemide 20 MG TABLET PO (08:07)
[2021-08-08] MEDS: Lactulose 20 GM/30 ML SOLUTION PO ×3 (08:07→21:09)
[2021-08-08] MEDS: Insulin Lispro 100 UNIT/ML 3 ML VIAL SUBCUT ×2 (08:07→17:18)
[2021-08-08] MEDS: Spironolactone 25 MG TABLET PO ×2 (08:07→17:19)
[2021-08-08] MEDS: 0.9 % Sodium Chloride Flush 3 ML SYRINGE IVFLUSH ×3 (08:07→23:38)
[2021-08-08] MEDS: Thiamine HCL 100 MG TABLET PO (08:07)
[2021-08-08 11:21] LABS: Glucose, Whole Blood 145 mg/dL (60-115)
--- NOTE | 2021-08-08 13:02 | PM.DS ---
DS: Providers Provider Date of Service: 08/08/21 Date of admission: 08/01/21 17:22 Date of discharge: 08/08/21 Primary care physician: Baldomero Abel MD Consults: 08/01/21 17:22 Consult to Gastroenterology Routine Consulting Provider: Tho Carnes Reason for consultation: etoh abuse, cirrhosis, guiac + Has provider been notified: No 08/03/21 07:28 Consult to Care Team Routine Comment: Reason for consultation: alcohol abuse Attending physician on discharge: Marcio Reich Discharging clinician: Mel Holloway DS: Diagnosis Discharge Diagnosis (1) Acute hepatic encephalopathy: Status: Acute DS: Summary Hospital Course Hospital Course: From H&P on day of admission this is a 55-year-old male was brought to the emergency department by EMS after his roommate called due to weakness.? EMS found him covered in stool and urine with empty alcohol bottles all around. He was lethargic but arousable to verbal stimuli. ? He was initially hypotensive on arrival with blood pressure in 80s.? he was noted to have dried blood in his mouth.? digital rectal exam revealed brown stool that was heme positive.? LFTs were elevated, ammonia level was elevated at 124, lactic acid 3.9, creatinine 2.44. CPK 489, magnesium 1.5. He was treated with IVF, IV magnesium, IVF and albumin. He was empirically covered for SBP with IV ceftriaxone. He denies any abdominal pain at this time. ? He is able to answer some simple questions. Patient has a history of alcohol abuse with withdrawal seizures. He is unsure if he had a seizure. Gven multiple abnormalities the decision was made to admit him to the hospital for further management. Discharge diagnoses: Decompensated liver cirrhosis with ascites and thrombocytopenia Toxic metabolic encephalopathy secondary to elevated ammonia Alcohol dependence/alcohol withdrawal SAUL Mild rhabdomyolysis Hypokalemia/hypomagnesemia Lactic acidosis Possible GI bleed Hospital course by problem: Decompensated liver cirrhosis with ascites and thrombocytopenia.?cirrhosis secondary to alcohol abuse. meld score 29 on admission. Maddrey discriminant function on admission 34.9, he does qualify for steroids but given concern over GI bleeding was not treated with prednisone.He was?Seen by GI and started on p.o. Lasix and Aldactone for ascites. He underwent paracentesis x2 with removal of 10 L and 8 L. he was empirically treated with IV ceftriaxone but fluid studies showed no evidence of SBP in ceftriaxone was discontinued. LFTs are trending down. Patient should follow up with GI as outpatient. The importance of alcohol cessation was discussed with him. Probable GI bleed. admitted with INR elevated, guiac positive; dried blood in mouth on admission. no other overt bleeding noted since. initially treated with IV PPI and octreotide drip. seen by GI, no need for EGD. H/H has remained stable. PPI transitioned to po and octreotide drip stopped. ? Toxic Metabolic encephalopathy/ hepatic encephalopathy. Mental status improved. ammonia improved from 124 down to 46 with initiation of lactulose. Initially treated empirically with high dose thiamine for possible Wernicke encephalopathy. Lactulose decreased which helped to decrease diarrhea alcohol dependence with high risk for withdrawal. ?history of alcohol withdrawal seizures in the past. Treated with phenobarbital protocol. No seizure activity during hospitalization. The supplemented with thiamine and folic acid. Was seen by care team during hospitalization. SAUL. resolved. likely prerenal. Resolved. Hypokalemia/hypomagnesemia. Hypokalemia improved with supplementation. Patient continues to have hypomagnesemia. Was treated with IV and oral magnesium. Will be discharged with oral magnesium supplementation. Recommend rechecking electrolytes on Wednesday and weekly thereafter until levels stabilize and supplement as needed. Improved with improvement of diarrhea Lactic acidosis. Lactic acid was initially elevated which was likely secondary to dehydration coupled with liver dysfunction and metformin use. There was no evidence of sepsis or infectious process. Resolved with IV fluid. Patient was evaluated by Physical therapy who recommended short-term rehab. He will be transferred to short-term rehab in stable condition. Anticipate less than 30 day stay Time Spent with Patient Time attestation: Total time spent providing and/or coordinating discharge services: Discharge coordination time: Greater than 30 minutes Quality: Safe Use of Opioids Does Pt have an Active Cancer Diagnosis on the Problem List?: No Quality: Stroke Does the patient have a stroke diagnosis?: No Physical Exam Vital Signs: Vital Signs: Last Vital Signs Temp 98.5 F 08/08/21 11:36 Pulse 113 H 08/08/21 11:36 Resp 18 08/08/21 11:36 BP 120/74 08/08/21 11:36 Pulse Ox 99 08/08/21 11:36 BMI result Body Mass Index 41.8 Const: General: cooperative, comfortable, alert and awake Nutritional Appearance: obese Orientation/consciousness: oriented to person, oriented to place and patient oriented x3 Eyes: Pupils: Equal, round and reactive pupils present Resp: Effort & Inspection: normal respiratory effort and able to speak in complete sentences Auscultation: clear to auscultation bilaterally Cardio: Rate: tachycardic Heart sounds: S1 normal heart sound present and S2 normal heart sound present GI: Inspection: No distended Palpation (GI): Soft to palpation and nontender Neuro: General: oriented to person, oriented to place and patient oriented x3 Cranial nerves: Yes Equal, round and reactive pupils present Extrem: General: Yes no pedal edema DS: Data Data Completed and Pending Labs on day of discharge: Laboratory Results - last 24 hr 08/07/21 08/07/21 08/08/21 16:10 20:08 05:49 Sodium 135 Potassium 3.8 Chloride 100 Carbon Dioxide 30 H Anion Gap 9 L BUN 7 L Creatinine 0.67 Estim Creat Clear Calc 162.1 Estimated GFR > 60 POC Glucose 167 H 137 H Random Glucose 178 H Calcium 7.8 L Magnesium 1.4 L* 08/08/21 08/08/21 07:43 11:18 Sodium Potassium Chloride Carbon Dioxide Anion Gap BUN Creatinine Estim Creat Clear Calc Estimated GFR POC Glucose 160 H 145 H Random Glucose Calcium Magnesium Preliminary micro results at discharge 08/04/21 11:00 Anaerobic Culture - Preliminary Abdomen - Peritoneal No growth to date. Discharge Plan Discharge Anticipated Discharge Date/Time: 08/12/21 14:00 Patient Disposition: Xfer SNF Discharge Diagnosis: decompensated liver failure SAUL encephalopathy Referrals: [facility] [Outside] - 1 Week Baldomero Abel MD [Primary Care Provider] - 1 Week Tho Carnes [Physician] - 2 Weeks Discharge Medications: New spironolactone 25 mg Tablet 25 mg PO BID@0900,1800 Qty: 1 0RF Protocol: Hold for SBP< HOLD for SBP < : 90 furosemide 20 mg Tablet 20 mg PO DAILY Qty: 1 0RF Protocol: Hold for SBP< HOLD for SBP < : 90 lactulose 20 gram/30 mL Solution 20 g PO TID Qty: 1200 0RF magnesium oxide 400 mg (241.3 mg magnesium) Tablet 400 mg PO BID Qty: 1 0RF omeprazole 40 mg Capsule,Delayed Release(Dr/Ec) 40 mg PO DAILY@0630 Qty: 1 0RF insulin lispro [Humalog U-100 Insulin] 100 unit/mL Solution See Protocol unit subcut QIMIMI Qty: 10 0RF Protocol: Insulin Correction Scale Less than or equal to 110 ---- Give (units): 0 111 to 150 Give (units): 0 151 to 200 Give (units): 2 201 to 250 Give (units): 4 251 to 300 Give (units): 6 301 to 350 Give (units): 8 Greater than 350 Give (units): 10 Call MD if Blood Glucose > : 350 Continued lidocaine 5 % adhesive patch,medicated 1 patch topical DAILY 0RF folic acid 1 mg Tablet 1 mg PO DAILY 0RF metformin 500 mg Tablet 1,000 mg PO BIDWM 0RF thiamine HCl (vitamin B1) 100 mg tablet 1 tab PO DAILY 0RF Held sertraline 25 mg Tablet 12.5 mg DAILY 0RF Hold Instructions: held during hospitalization, can be resumed outpateint if needed Discontinued lisinopril 5 mg Tablet 5 mg PO DAILY 0RF omeprazole 20 mg Capsule,Delayed Release(Dr/Ec) 20 mg PO DAILY@0630 0RF Discharge Orders: Discharge Order (Routine); Ordered 08/12/21 Ordered By: Dawna Williamson Diet: advance to usual diet Activity on Discharge: As tolerated Stand Alone Forms: Patient Portal Discharge page Care Plan Goals: see below Health Concerns: Liver cirrhosis with ascites/thrombocytopenia alcohol dependence and withdrawal hepatic encephalopathy hypomagnesemia GI bleed SAUL Plan of Treatment: Continue lactulose now at decreased dose Continue aldactone/lasix for ascites Continue magnesium, thiamine and folic acid supplementation Monitor electrolytes (including magnesium), liver function and renal function weekly, starting Tuesday 08/15 for 1-2 weeks then periodically as needed Call to schedule follow up appointment with GI Call to schedule follow up appointment with PCP Do not drink alcohol Assessment: see discharge summary Discharge Date/Time: 08/12/21 16:47
[2021-08-08 13:41] LABS: COVID-19 Test Negative (Negative); IDNOW Serial# 16C4AD1C
--- NOTE | 2021-08-08 15:54 | HO.PM.IMPN ---
Subjective Subjective Date of Service: 08/08/21 Interval History: seen and examined this morning follow up for saul, encephalopathy, liver failure no overnight events awake, alert, no complaints not getting out of bed much Constitutional Constitutional: Denies chills and Denies fever(s) Physical Exam Vital Signs: Vital Signs: Last Vital Signs Temp 98.4 F 08/08/21 15:40 Pulse 119 H 08/08/21 15:40 Resp 18 08/08/21 15:40 BP 109/58 L 08/08/21 15:40 Pulse Ox 95 08/08/21 15:40 BMI result Body Mass Index 41.8 Const: General: cooperative, comfortable, no acute distress, alert and awake Nutritional Appearance: obese Orientation/consciousness: patient oriented x3 Eyes: Pupils: Equal, round and reactive pupils present Resp: Effort & Inspection: normal respiratory effort and able to speak in complete sentences Auscultation: clear to auscultation bilaterally Cardio: Rate: tachycardic Heart sounds: S1 normal heart sound present and S2 normal heart sound present GI: Inspection: No distended Palpation (GI): Soft to palpation and nontender Neuro: General: patient oriented x3 Cranial nerves: Yes Equal, round and reactive pupils present Extrem: General: Yes no pedal edema Objective Data Active Medications Dextrose (Dextrose 50 % 25 Gm/50 Ml Syringe) 25 gm IVPUSH Q15M PRN; Protocol PRN Reason: per Hypoglycemia Standing Ord. Docusate Sodium (Docusate Sodium 100 Mg Capsule) 100 mg PO DAILY PRN PRN Reason: Constipation Folic Acid (Folic Acid 1 Mg Tablet) 1 mg PO DAILY [facility] Last Admin: 08/08/21 08:06 Dose: 1 mg Documented by: RONIT Furosemide (Furosemide 20 Mg Tablet) 20 mg PO DAILY [facility]; Protocol Last Admin: 08/08/21 08:07 Dose: 20 mg Documented by: RONIT Glucose (Glucose Gel 15 Gm Gel..Gram.) 15 gm PO Q15M PRN; Protocol PRN Reason: per Hypoglycemia Standing Ord. Insulin Human Lispro (Insulin Lispro 100 Unit/Ml 3 Ml Vial) 0 unit SUBCUT QIDACHS [facility]; Protocol Last Admin: 08/08/21 11:28 Dose: Not Given Documented by: RONIT Non-Admin Reason: No Insulin Coverage Lactulose (Lactulose 20 Gm/30 Ml Solution) 20 gm PO TID [facility] Last Admin: 08/08/21 08:07 Dose: 20 gm Documented by: RONIT Magnesium Oxide (Magnesium Oxide 400 Mg Tablet) 400 mg PO BID [facility] Last Admin: 08/08/21 08:06 Dose: 400 mg Documented by: RONIT Omeprazole (Omeprazole 40 Mg Capsule.Dr) 40 mg PO DAILY@0630 [facility] Last Admin: 08/08/21 05:17 Dose: 40 mg Documented by: AMINATA Pharmacy Consult (Consult Rx Perform Med Rec) 1 each MISCELLANE ONCE PRN PRN Reason: Consult order Pharmacy Consult (Consult Rx Etoh Phenob Po Dose) 1 each MISCELLANE ONCE PRN; Protocol PRN Reason: Consult order Sodium Chloride (0.9 % Sodium Chloride Flush 3 Ml Syringe) 3 ml IVFLUSH QSHIFT [facility] Last Admin: 08/08/21 08:07 Dose: 3 ml Documented by: RONIT Spironolactone (Spironolactone 25 Mg Tablet) 25 mg PO BID@0900,1800 [facility]; Protocol Last Admin: 08/08/21 08:07 Dose: 25 mg Documented by: RONIT Thiamine HCl (Thiamine Hcl 100 Mg Tablet) 100 mg PO DAILY [facility] Last Admin: 08/08/21 08:07 Dose: 100 mg Documented by: RONIT Labs CBC & Chem 7: 08/05/21 11:02 08/08/21 05:49 Labs: Laboratory Results - last 24 hr 08/07/21 08/07/21 08/08/21 16:10 20:08 05:49 Anion Gap 9 L Estim Creat Clear Calc 162.1 Estimated GFR > 60 POC Glucose 167 H 137 H Random Glucose 178 H Calcium 7.8 L Magnesium 1.4 L* COVID-19 (JESIKA) COVID-19 Clin Com 08/08/21 08/08/21 08/08/21 07:43 11:18 13:20 Anion Gap Estim Creat Clear Calc Estimated GFR POC Glucose 160 H 145 H Random Glucose Calcium Magnesium COVID-19 (JESIKA) Negative COVID-19 Clin Com See Note Microbiology Microbiology Results: Microbiology 08/04/21 11:00 Gram Stain - Final Abdomen - Peritoneal Routine Culture - Final No growth after 2 days Anaerobic Culture - Preliminary No growth to date. Assessment and Plan (1) Alcohol withdrawal: Status: Acute Plan This is a 55 year old male with history of alcohol dependence, withdrawal seizures, liver cirrhosis, DM, HTN who was brought to the emergency department by EMS due to lethargy found to have numerous abnormalities including decompensated liver failure, ascites, SAUL ?Decompensated liver cirrhosis with ascites and thrombocytopenia ?cirrhosis secondary to alcohol abuse ?meld score 29 on admission ?Maddrey discriminant function 34.9, he does qualify for steroids but given concern over GI bleeding was not treated with prednisone Seen by GI Rocephin stopped no indication of infection noted ?LFTs trending down paracentesis 10 liters out started on po lasix/aldactone Probable GI bleed admitted with INR elevated, guiac positive; dried blood in mouth no other overt bleeding noted since seen by GI, no need for EGD Octreotide stopped H/H has remained stable follow CBC started on po PPI ? Toxic Metabolic encephalopathy/ hepatic encephalopathy. mental status improving significantly ammonia 124 to 46, possible Wernicke encephalopathy will continue po lactulose; titrate to 2-3 BM daily initially treated with high dose thiamine alcohol dependence with high risk for withdrawal ?history of alcohol withdrawal seizures in the past ?continue phenobarbital protocol ?seizure precautions ?supplementation with thiamine, folate seen by care team ?high dose thiamine empirically for possible Wernicke encephalopathy SAUL. resolved likely prerenal Improving follow BMP coagulopathy r/t liver disease INR 2.1 received vit k mild rhabdo cpk trending down after IVF hypoagnesemia/hypokalemia r/t etoh abuse replace and follow Elevated lactic acid secondary to dehydration/ liver dysfunction/ metformin No evidence of sepsis treated with IVF DM hold metformin SSI, POCs mood hold sertraline for now can resume when more awake HTN hold lisinopril for SAUL, hypotension dvt ppx - mechanical devices code status -full code attending Dr. Reich dispo: seen by PT, rec STR Continue hospitalization for tachycardia, hypomagnesemia and awaiting rehab placement for safe disposition Quality Stroke Does the patient have a stroke diagnosis?: No VTE Prior VTE?: No VTE Risk Level:: Medical - moderate - high VTE Device Contraindication: N/A - Device Ordered VTE Drug Contraindication: Treatment Not Indicated
--- NOTE | 2021-08-08 15:58 | MHC.CM.PN ---
PATIENT AGREEABLE TO [facility] OFFER FACILITY HAS GONE FOR AUTH. OF THIS NOTE, NO AUTH YET MAY TAKE UNTIL WEDNESDAY
[2021-08-08 16:05] LABS: Glucose, Whole Blood 211 mg/dL (60-115)
--- NOTE | 2021-08-08 16:19 | PC.NURSE ---
IV present #20 in LFA,intact ,patent,asymptomatic
[2021-08-08 19:46] LABS: Glucose, Whole Blood 141 mg/dL (60-115)
[2021-08-09 03:22] VITALS: BP 121/76; PULSE 105; RESP 18; TEMP 36.3; O2SAT 97
[2021-08-09] MEDS: Omeprazole 40 MG CAPSULE.DR PO (05:37)
[2021-08-09 07:39] VITALS: BP 123/82; PULSE 99; RESP 20; TEMP 36.7; O2SAT 94
[2021-08-09 07:55] LABS: Glucose, Whole Blood 125 mg/dL (60-115)
[2021-08-09 07:58] LABS: Magnesium 1.4 mg/dL (1.6-2.6)
[2021-08-09] MEDS: Lactulose 20 GM/30 ML SOLUTION PO ×2 (09:23→21:16)
[2021-08-09] MEDS: Furosemide 20 MG TABLET PO (09:23)
[2021-08-09] MEDS: 0.9 % Sodium Chloride Flush 3 ML SYRINGE IVFLUSH ×3 (09:24→21:21)
[2021-08-09] MEDS: Magnesium Oxide 400 MG TABLET PO ×2 (09:24→21:16)
[2021-08-09] MEDS: Spironolactone 25 MG TABLET PO ×2 (09:24→18:04)
[2021-08-09] MEDS: Magnesium Sulfate/H2O 2 GM/50 ML PIGGYBACK IV (09:24)
[2021-08-09] MEDS: Thiamine HCL 100 MG TABLET PO (09:24)
[2021-08-09] MEDS: Folic Acid 1 MG TABLET PO (09:24)
[2021-08-09 11:36] VITALS: BP 124/68; PULSE 114; RESP 22; TEMP 37.2; O2SAT 98
--- NOTE | 2021-08-09 11:48 | HO.PM.IMPN ---
Subjective Subjective Date of Service: 08/09/21 Interval History: seen and examined this morning follow up for etoh, cirrhosis with ascites episode of feeling short of breath this morning - now resolved. no chest pain, no pleuritic pain feels like acites is increasing again Review of Systems Review of Systems: Yes all other systems are reviewed and are negative Constitutional Constitutional: Denies chills and Denies fever(s) Cardiovascular Cardiovascular: Denies chest pain and Denies palpitations Respiratory Respiratory: Denies cough and Denies pain on inspiration Gastrointestinal Gastrointestinal: Denies abdominal pain, Denies nausea and Denies vomiting Endocrine Endocrine: Denies palpitations Physical Exam Vital Signs: Vital Signs: Last Vital Signs Temp 98.9 F 08/09/21 11:36 Pulse 114 H 08/09/21 11:36 Resp 22 H 08/09/21 11:36 BP 124/68 08/09/21 11:36 Pulse Ox 98 08/09/21 11:36 BMI result Body Mass Index 41.8 Const: Other: arousable to verbal stimuli, lethargic he is able to state his name and that he is in [facility] General: cooperative, comfortable, no acute distress, alert, awake and lethargic Nutritional Appearance: obese Orientation/consciousness: oriented to person, oriented to place, patient oriented x3 and lethargic Eyes: Pupils: Equal, round and reactive pupils present Resp: Effort & Inspection: normal respiratory effort and able to speak in complete sentences Auscultation: clear to auscultation bilaterally Cardio: Rate: tachycardic Heart sounds: S1 normal heart sound present and S2 normal heart sound present GI: Other: softly distended; appears non-tender; +ascites Inspection: No distended Palpation (GI): Soft to palpation and nontender Rectal Exam - Male: Yes heme positive stool Skin: Other: dry scabs multiple toes Neuro: General: oriented to person, oriented to place and patient oriented x3 Cranial nerves: Yes Equal, round and reactive pupils present Motor exam (neuro): Asterixis during motor activity present Extrem: General: Yes no pedal edema Objective Data Active Medications Dextrose (Dextrose 50 % 25 Gm/50 Ml Syringe) 25 gm IVPUSH Q15M PRN; Protocol PRN Reason: per Hypoglycemia Standing Ord. Docusate Sodium (Docusate Sodium 100 Mg Capsule) 100 mg PO DAILY PRN PRN Reason: Constipation Folic Acid (Folic Acid 1 Mg Tablet) 1 mg PO DAILY [facility] Last Admin: 08/09/21 09:24 Dose: 1 mg Documented by: DARIA Furosemide (Furosemide 20 Mg Tablet) 20 mg PO DAILY [facility]; Protocol Last Admin: 08/09/21 09:23 Dose: 20 mg Documented by: DARIA Glucose (Glucose Gel 15 Gm Gel..Gram.) 15 gm PO Q15M PRN; Protocol PRN Reason: per Hypoglycemia Standing Ord. Insulin Human Lispro (Insulin Lispro 100 Unit/Ml 3 Ml Vial) 0 unit SUBCUT QIDACHS [facility]; Protocol Last Admin: 08/09/21 08:33 Dose: Not Given Documented by: DARIA Non-Admin Reason: No Insulin Coverage Lactulose (Lactulose 20 Gm/30 Ml Solution) 20 gm PO TID [facility] Last Admin: 08/09/21 09:23 Dose: 20 gm Documented by: DARIA Levalbuterol HCl (Levalbuterol Hcl 1.25 Mg/0.5 Ml Vial.Renard) 1.25 mg INHALE Q4H PRN PRN Reason: Shortness of Breath Magnesium Oxide (Magnesium Oxide 400 Mg Tablet) 400 mg PO BID [facility] Last Admin: 08/09/21 09:24 Dose: 400 mg Documented by: DARIA Omeprazole (Omeprazole 40 Mg Capsule.) 40 mg PO DAILY@0630 [facility] Last Admin: 08/09/21 05:37 Dose: 40 mg Documented by: AMINATA Pharmacy Consult (Consult Rx Perform Med Rec) 1 each MISCELLANE ONCE PRN PRN Reason: Consult order Pharmacy Consult (Consult Rx Etoh Phenob Po Dose) 1 each MISCELLANE ONCE PRN; Protocol PRN Reason: Consult order Sodium Chloride (0.9 % Sodium Chloride Flush 3 Ml Syringe) 3 ml IVFLUSH QSHIFT [facility] Last Admin: 08/09/21 09:24 Dose: 3 ml Documented by: DARIA Spironolactone (Spironolactone 25 Mg Tablet) 25 mg PO BID@0900,1800 [facility]; Protocol Last Admin: 08/09/21 09:24 Dose: 25 mg Documented by: DARIA Thiamine HCl (Thiamine Hcl 100 Mg Tablet) 100 mg PO DAILY [facility] Last Admin: 08/09/21 09:24 Dose: 100 mg Documented by: DARIA Labs CBC & Chem 7: 08/05/21 11:02 08/08/21 05:49 Labs: Laboratory Results - last 24 hr 08/08/21 08/08/21 08/08/21 13:20 15:45 19:41 POC Glucose 211 H 141 H Magnesium COVID-19 ([facility]A) Negative COVID-19 Clin Com See Note 08/09/21 08/09/21 06:37 07:44 POC Glucose 125 H Magnesium 1.4 L* COVID-19 (JESIKA) COVID-19 Clin Com Microbiology Microbiology Results: Microbiology 08/04/21 11:00 Gram Stain - Final Abdomen - Peritoneal Routine Culture - Final No growth after 2 days Anaerobic Culture - Final NO GROWTH AFTER 5 DAYS Assessment and Plan (1) Ascites: Status: Acute Plan This is a 55 year old male with history of alcohol dependence, withdrawal seizures, liver cirrhosis, DM, HTN who was brought to the emergency department by EMS due to lethargy found to have numerous abnormalities including decompensated liver failure, ascites, SAUL shortness of breath brief episode, no hypoxia IS, prn breathing treatments CXR pending limited US to assess volume of ascites Decompensated liver cirrhosis with ascites and thrombocytopenia ?cirrhosis secondary to alcohol abuse. meld score 29 on admission. Maddrey discriminant function 34.9 on admission, did qualify for steroids but given concern over GI bleeding was not treated with prednisone Seen by GI s/p paracentesis 08/04, 10 liters removed . Rocephin stopped no indication of infection noted ?LFTs trending down started on po lasix/aldactone during this admission will need outpatient follow up with GI Probable GI bleed admitted with INR elevated, guiac positive; dried blood in mouth. Has had no other overt bleeding noted since seen by GI, no need for EGD. Octreotide stopped H/H has remained stable follow CBC PPI transitioned to PO ? Toxic Metabolic encephalopathy/ hepatic encephalopathy. mental status improved ammonia 124 down to 46 continue po lactulose; titrate to 2-3 BM daily initially treated with high dose thiamine due to possibility of Wernicke encephalopathy alcohol dependence with high risk for withdrawal ?history of alcohol withdrawal seizures in the past has compleated phenobarbital protocol seizure precautions supplementation with thiamine, folate seen by care team was treated with high thiamine empirically for possible Wernicke encephalopathy SAUL. resolved likely prerenal Improving follow BMP coagulopathy r/t liver disease INR 2.1 received vit k mild rhabdo cpk trending down after IVF hypoagnesemia/ magnesium persistently low ? r/t PPI use vs GI losses replace and follow Elevated lactic acid secondary to dehydration/ liver dysfunction/ metformin No evidence of sepsis treated with IVF DM hold metformin SSI, POCs mood hold sertraline for now can resume when more awake HTN hold lisinopril for SAUL, hypotension dvt ppx - mechanical devices code status -full code attending Dr. Falcon dispo: seen by PT, rec STR. has been, awaiting insurance authorization Continue hospitalization for tachycardia, hypomagnesemia and awaiting rehab placement for safe disposition Quality Stroke Does the patient have a stroke diagnosis?: No VTE Prior VTE?: No VTE Risk Level:: Medical - moderate - high VTE Device Contraindication: N/A - Device Ordered VTE Drug Contraindication: Treatment Not Indicated
[2021-08-09 11:51] LABS: Glucose, Whole Blood 183 mg/dL (60-115)
--- NOTE | 2021-08-09 12:00 | MHC.CM.PN ---
[facility] OFFERING PT A BED HOWEVER INSURANCE AUTH WILL BE REQUIRED AND THEY ARE CLOSED THROUGH THE WEEKEND.
[2021-08-09] MEDS: Insulin Lispro 100 UNIT/ML 3 ML VIAL SUBCUT ×2 (12:19→16:44)
[2021-08-09 15:33] VITALS: BP 120/70; PULSE 97; RESP 18; TEMP 36.4; O2SAT 99
[2021-08-09 16:01] LABS: Glucose, Whole Blood 184 mg/dL (60-115)
[2021-08-09 19:26] VITALS: BP 109/64; PULSE 112; RESP 18; TEMP 36.7; O2SAT 99
[2021-08-09 19:54] LABS: Glucose, Whole Blood 150 mg/dL (60-115)
[2021-08-10] VITALS: BP 133/70; PULSE 100; RESP 18; TEMP 37.4; O2SAT 96
[2021-08-10 03:21] VITALS: BP 129/75; PULSE 101; RESP 18; TEMP 37.4; O2SAT 96
[2021-08-10] MEDS: Omeprazole 40 MG CAPSULE.DR PO (05:59)
[2021-08-10 07:36] VITALS: BP 136/78; PULSE 100; RESP 20; TEMP 36.4; O2SAT 95
[2021-08-10 07:40] LABS: Alanine Aminotransferase 26 U/L (0-40); Albumin Level 2.2 g/dL (3.5-5.0); Alkaline Phosphatase 111 U/L (39-117); Aspartate Amino Transferase 70 U/L (5-37); Bilirubin Direct 3.7 mg/dL (0.0-0.5); Magnesium 1.4 mg/dL (1.6-2.6); Total Protein 5.9 g/dL (6.5-8.0)
[2021-08-10 07:53] LABS: Glucose, Whole Blood 128 mg/dL (60-115)
[2021-08-10 08:35] LABS: Hematocrit 27.3 % (42.0-52.0); Hemoglobin 9.4 g/dl (14.0-18.0); Mean Corpuscular HGB Conc 34.4 g/dl (31.0-36.0); Mean Corpuscular Hemoglobin 38.7 pg (27.0-33.0); Mean Platelet Volume 10.9 fL (9.4-12.4); Red Blood Count 2.43 X10*6/uL (4.60-5.80); Red Cell Distribution Width 15.7 % (11.0-16.0); White Blood Count 6.3 X10*3/uL (4.8-10.8)
[2021-08-10 08:36] LABS: Mean Corpuscular Volume 112.3 fL (80.0-98.0); Platelet Count 84 X10*3/uL (160-400)
[2021-08-10] MEDS: Furosemide 20 MG TABLET PO (08:57)
[2021-08-10] MEDS: Spironolactone 25 MG TABLET PO ×2 (08:57→17:30)
[2021-08-10] MEDS: Lactulose 20 GM/30 ML SOLUTION PO ×2 (08:57→20:33)
[2021-08-10] MEDS: Thiamine HCL 100 MG TABLET PO (08:57)
[2021-08-10] MEDS: 0.9 % Sodium Chloride Flush 3 ML SYRINGE IVFLUSH ×2 (08:57→17:29)
[2021-08-10] MEDS: Folic Acid 1 MG TABLET PO (08:57)
[2021-08-10] MEDS: Magnesium Oxide 400 MG TABLET PO ×2 (08:57→20:33)
[2021-08-10 11:34] VITALS: BP 119/67; PULSE 104; RESP 20; TEMP 37; O2SAT 95
[2021-08-10 11:44] LABS: Glucose, Whole Blood 186 mg/dL (60-115)
[2021-08-10] MEDS: Insulin Lispro 100 UNIT/ML 3 ML VIAL SUBCUT ×2 (12:14→17:39)
--- NOTE | 2021-08-10 12:16 | HO.PM.IMPN ---
Subjective Subjective Date of Service: 08/10/21 Interval History: seen and examined this morning follow up for hepatic encephalopathy/ascites no overnight events no shortness of breath or cough no abdominal pain, fever or chills Review of Systems Review of Systems: Yes all other systems are reviewed and are negative Constitutional Constitutional: Denies chills and Denies fever(s) Cardiovascular Cardiovascular: Denies chest pain, Denies palpitations and Denies dyspnea Respiratory Respiratory: Denies cough and Denies dyspnea Gastrointestinal Gastrointestinal: Denies abdominal pain, Denies nausea and Denies vomiting Endocrine Endocrine: Denies palpitations Physical Exam Vital Signs: Vital Signs: Last Vital Signs Temp 98.6 F 08/10/21 11:34 Pulse 104 H 08/10/21 11:34 Resp 20 08/10/21 11:34 BP 119/67 08/10/21 11:34 Pulse Ox 95 08/10/21 11:34 BMI result Body Mass Index 41.8 Const: General: cooperative, comfortable, no acute distress, alert and awake Nutritional Appearance: obese Orientation/consciousness: patient oriented x3 Eyes: Pupils: Equal, round and reactive pupils present EOM: EOMs intact bilaterally Resp: Effort & Inspection: normal respiratory effort and able to speak in complete sentences Auscultation: clear to auscultation bilaterally Cardio: Rate: regular rate Heart sounds: S1 normal heart sound present and S2 normal heart sound present GI: Palpation (GI): Soft to palpation and nontender Neuro: General: patient oriented x3 Cranial nerves: Yes Equal, round and reactive pupils present Extrem: Other: moving all 4 extremities spontaneously Objective Data Active Medications Dextrose (Dextrose 50 % 25 Gm/50 Ml Syringe) 25 gm IVPUSH Q15M PRN; Protocol PRN Reason: per Hypoglycemia Standing Ord. Docusate Sodium (Docusate Sodium 100 Mg Capsule) 100 mg PO DAILY PRN PRN Reason: Constipation Folic Acid (Folic Acid 1 Mg Tablet) 1 mg PO DAILY [facility] Last Admin: 08/10/21 08:57 Dose: 1 mg Documented by: DARIA Furosemide (Furosemide 20 Mg Tablet) 20 mg PO DAILY [facility]; Protocol Last Admin: 08/10/21 08:57 Dose: 20 mg Documented by: DARIA Glucose (Glucose Gel 15 Gm Gel..Gram.) 15 gm PO Q15M PRN; Protocol PRN Reason: per Hypoglycemia Standing Ord. Insulin Human Lispro (Insulin Lispro 100 Unit/Ml 3 Ml Vial) 0 unit SUBCUT QIDACHS [facility]; Protocol Last Admin: 08/10/21 12:14 Dose: 2 unit Documented by: DARIA Lactulose (Lactulose 20 Gm/30 Ml Solution) 20 gm PO BID [facility] Last Admin: 08/10/21 08:57 Dose: 20 gm Documented by: DARIA Levalbuterol HCl (Levalbuterol Hcl 1.25 Mg/0.5 Ml Vial.Neb) 1.25 mg INHALE Q4H PRN PRN Reason: Shortness of Breath Magnesium Oxide (Magnesium Oxide 400 Mg Tablet) 400 mg PO BID [facility] Last Admin: 08/10/21 08:57 Dose: 400 mg Documented by: DARIA Omeprazole (Omeprazole 40 Mg Capsule.) 40 mg PO DAILY@0630 [facility] Last Admin: 08/10/21 05:59 Dose: 40 mg Documented by: CYRIL Pharmacy Consult (Consult Rx Perform Med Rec) 1 each MISCELLANE ONCE PRN PRN Reason: Consult order Pharmacy Consult (Consult Rx Etoh Phenob Po Dose) 1 each MISCELLANE ONCE PRN; Protocol PRN Reason: Consult order Rifaximin (Rifaximin 550 Mg Tablet) 550 mg PO BID [facility] Sodium Chloride (0.9 % Sodium Chloride Flush 3 Ml Syringe) 3 ml IVFLUSH QSHIFT [facility] Last Admin: 08/10/21 08:57 Dose: 3 ml Documented by: DARIA Spironolactone (Spironolactone 25 Mg Tablet) 25 mg PO BID@0900,1800 [facility]; Protocol Last Admin: 08/10/21 08:57 Dose: 25 mg Documented by: DARIA Thiamine HCl (Thiamine Hcl 100 Mg Tablet) 100 mg PO DAILY [facility] Last Admin: 08/10/21 08:57 Dose: 100 mg Documented by: DARIA Labs CBC & Chem 7: 08/10/21 06:22 08/08/21 05:49 Labs: Laboratory Results - last 24 hr 08/09/21 08/09/21 08/10/21 15:35 19:23 06:22 MCV MCH MCHC RDW Plt Count MPV Absolute Nucleated RBC Nucleated RBC % (auto) POC Glucose 184 H 150 H Magnesium 1.4 L* Total Bilirubin 6.0 H Direct Bilirubin 3.7 H AST 70 H ALT 26 Alkaline Phosphatase 111 Total Protein 5.9 L Albumin 2.2 L 08/10/21 08/10/21 08/10/21 06:22 07:35 11:34 MCV 112.3 H MCH 38.7 H MCHC 34.4 RDW 15.7 Plt Count 84 L D MPV 10.9 Absolute Nucleated RBC 0.000 Nucleated RBC % (auto) 0.0 POC Glucose 128 H 186 H Magnesium Total Bilirubin Direct Bilirubin AST ALT Alkaline Phosphatase Total Protein Albumin Microbiology Microbiology Results: Microbiology 08/04/21 11:00 Gram Stain - Final Abdomen - Peritoneal Routine Culture - Final No growth after 2 days Anaerobic Culture - Final NO GROWTH AFTER 5 DAYS Assessment and Plan (1) Ascites: Status: Acute (2) Acute hepatic encephalopathy: Status: Acute Plan This is a 55 year old male with history of alcohol dependence, withdrawal seizures, liver cirrhosis, DM, HTN who was brought to the emergency department by EMS due to lethargy found to have numerous abnormalities including decompensated liver failure, ascites, SAUL hypoagnesemia/ magnesium persistently low ? r/t GI losses; PPI use may be contributing as well will start rifaximin, dose of lactulose decreased replace and follow shortness of breath. resolved brief episode 08/09, no hypoxia IS, prn breathing treatments CXR unremarkable US showing mild to moderate ascites Decompensated liver cirrhosis with ascites and thrombocytopenia ?cirrhosis secondary to alcohol abuse. meld score 29 on admission. Maddrey discriminant function 34.9 on admission, did qualify for steroids but given concern over GI bleeding was not treated with prednisone Seen by GI s/p paracentesis 08/04, 10 liters removed . Rocephin stopped no indication of infection noted ?LFTs trending down started on po lasix/aldactone during this admission will need outpatient follow up with GI Probable GI bleed resolved admitted with INR elevated, guiac positive; dried blood in mouth. Has had no other overt bleeding noted since seen by GI, no need for EGD. Octreotide stopped H/H has remained stable follow CBC PPI transitioned to PO ? Toxic Metabolic encephalopathy/ hepatic encephalopathy. mental status improved ammonia 124 down to 46 continue po lactulose; titrate to 2-3 BM daily initially treated with high dose thiamine due to possibility of Wernicke encephalopathy alcohol dependence with high risk for withdrawal ?history of alcohol withdrawal seizures in the past has compleated phenobarbital protocol seizure precautions supplementation with thiamine, folate seen by care team was treated with high thiamine empirically for possible Wernicke encephalopathy SAUL. resolved likely prerenal Improving follow BMP coagulopathy r/t liver disease INR 2.1 received vit k mild rhabdo cpk trending down after IVF Elevated lactic acid secondary to dehydration/ liver dysfunction/ metformin No evidence of sepsis treated with IVF DM hold metformin SSI, POCs mood hold sertraline for now can resume when more awake HTN hold lisinopril for SAUL, hypotension dvt ppx - mechanical devices code status -full code attending Dr. Falcon dispo: seen by PT, rec STR. has been, awaiting insurance authorization Continue hospitalization for tachycardia, hypomagnesemia and awaiting rehab placement for safe disposition Quality Stroke Does the patient have a stroke diagnosis?: No VTE Prior VTE?: No VTE Risk Level:: Medical - moderate - high VTE Device Contraindication: N/A - Device Ordered VTE Drug Contraindication: Treatment Not Indicated
[2021-08-10 15:21] VITALS: BP 92/55; PULSE 104; RESP 18; TEMP 37.2; O2SAT 94
[2021-08-10 16:40] LABS: Glucose, Whole Blood 162 mg/dL (60-115)
[2021-08-10 19:43] VITALS: BP 109/65; PULSE 100; RESP 18; TEMP 36.4; O2SAT 96
[2021-08-10 20:22] LABS: Glucose, Whole Blood 126 mg/dL (60-115)
[2021-08-10] MEDS: rifAXIMin 550 MG TABLET PO (20:33)
[2021-08-11] VITALS (9 sets, daily range): BP systolic 90–116; BP diastolic 54–68; PULSE 99–108; RESP 17–18; TEMP 36.6–37.5; O2SAT 93–96
--- NOTE | 2021-08-11 | ECG_ITS ---
Test Reason : tachycardia Blood Pressure : / mmHG Vent. Rate : 108 BPM Atrial Rate : 108 BPM P-R Int : 158 ms QRS Dur : 086 ms QT Int : 354 ms P-R-T Axes : 030 027 024 degrees QTc Int : 474 ms Sinus tachycardia Nonspecific T wave abnormality Abnormal ECG When compared with ECG of 01-AUG-2021 13:40, No significant change was found Referred By: Dawna Williamson Electronically Signed By:Ian Saenz
[2021-08-11] MEDS: 0.9 % Sodium Chloride Flush 3 ML SYRINGE IVFLUSH ×4 (00:22→21:08)
[2021-08-11] MEDS: Omeprazole 40 MG CAPSULE.DR PO (05:26)
[2021-08-11 06:46] LABS: Anion Gap 10 (12-20); Blood Urea Nitrogen 7 mg/dL (9-16); Calcium 7.7 mg/dL (8.4-10.2); Carbon Dioxide 27 mmol/L (22-29); Chloride 99 mmol/L (96-108); Creatinine Clr Calc Pharmacy 204.9; Estimated Glomerular Filt Rate > 60; Glucose Random 130 mg/dL (60-115); Potassium 3.3 mmol/L (3.3-5.1); Sodium 133 mmol/L (135-145)
[2021-08-11 07:19] LABS: Magnesium 1.3 mg/dL (1.6-2.6)
[2021-08-11 07:34] LABS: Glucose, Whole Blood 127 mg/dL (60-115)
[2021-08-11] MEDS: Magnesium Sulfate/H2O 2 GM/50 ML PIGGYBACK IV (08:02)
[2021-08-11] MEDS: Lactulose 20 GM/30 ML SOLUTION PO ×2 (08:02→21:08)
[2021-08-11] MEDS: Spironolactone 25 MG TABLET PO ×2 (08:02→18:05)
[2021-08-11] MEDS: Folic Acid 1 MG TABLET PO (08:03)
[2021-08-11] MEDS: Thiamine HCL 100 MG TABLET PO (08:03)
[2021-08-11] MEDS: Magnesium Oxide 400 MG TABLET PO ×2 (08:03→21:08)
[2021-08-11] MEDS: rifAXIMin 550 MG TABLET PO ×2 (08:03→21:08)
[2021-08-11] MEDS: Furosemide 20 MG TABLET PO (08:03)
--- NOTE | 2021-08-11 09:26 | HO.PM.IMPN ---
Subjective Subjective Date of Service: 08/11/21 Review of Systems Follow up ESLD doing better no pain more awake Physical Exam Vital Signs: Vital Signs: Last Vital Signs Temp 98.5 F 08/11/21 08:00 Pulse 108 H 08/11/21 08:00 Resp 17 08/11/21 08:00 BP 115/67 08/11/21 08:00 Pulse Ox 94 08/11/21 08:00 BMI result Body Mass Index 41.8 Appearing in no acute distress lung sounds are clear to auscultation heart regular rate rhythm, clear S1, S2 positive bowel sounds, abdomen is soft, nontender, large protuberant abdomen neuro patient is alert x3, no focal deficits Objective Data Active Medications Dextrose (Dextrose 50 % 25 Gm/50 Ml Syringe) 25 gm IVPUSH Q15M PRN; Protocol PRN Reason: per Hypoglycemia Standing Ord. Docusate Sodium (Docusate Sodium 100 Mg Capsule) 100 mg PO DAILY PRN PRN Reason: Constipation Folic Acid (Folic Acid 1 Mg Tablet) 1 mg PO DAILY [facility] Last Admin: 08/11/21 08:03 Dose: 1 mg Documented by: DARIA Furosemide (Furosemide 20 Mg Tablet) 20 mg PO DAILY [facility]; Protocol Last Admin: 08/11/21 08:03 Dose: 20 mg Documented by: DARIA Glucose (Glucose Gel 15 Gm Gel..Gram.) 15 gm PO Q15M PRN; Protocol PRN Reason: per Hypoglycemia Standing Ord. Magnesium Sulfate (Magnesium Sulfate/H2o) 2 gm in 50 mls @ 25 mls/hr IV ONCE ONE Stop: 08/11/21 09:43 Last Admin: 08/11/21 08:02 Dose: 25 mls/hr Documented by: DARIA Insulin Human Lispro (Insulin Lispro 100 Unit/Ml 3 Ml Vial) 0 unit SUBCUT QIDACHS [facility]; Protocol Last Admin: 08/11/21 07:32 Dose: Not Given Documented by: DARIA Non-Admin Reason: No Insulin Coverage Lactulose (Lactulose 20 Gm/30 Ml Solution) 20 gm PO BID [facility] Last Admin: 08/11/21 08:02 Dose: 20 gm Documented by: DARIA Levalbuterol HCl (Levalbuterol Hcl 1.25 Mg/0.5 Ml Vial.Neb) 1.25 mg INHALE Q4H PRN PRN Reason: Shortness of Breath Magnesium Oxide (Magnesium Oxide 400 Mg Tablet) 400 mg PO BID [facility] Last Admin: 08/11/21 08:03 Dose: 400 mg Documented by: DARIA Omeprazole (Omeprazole 40 Mg Capsule.Dr) 40 mg PO DAILY@0630 [facility] Last Admin: 08/11/21 05:26 Dose: 40 mg Documented by: MONICA Pharmacy Consult (Consult Rx Perform Med Rec) 1 each MISCELLANE ONCE PRN PRN Reason: Consult order Pharmacy Consult (Consult Rx Etoh Phenob Po Dose) 1 each MISCELLANE ONCE PRN; Protocol PRN Reason: Consult order Rifaximin (Rifaximin 550 Mg Tablet) 550 mg PO BID [facility] Last Admin: 08/11/21 08:03 Dose: 550 mg Documented by: DARIA Sodium Chloride (0.9 % Sodium Chloride Flush 3 Ml Syringe) 3 ml IVFLUSH QSHIFT [facility] Last Admin: 08/11/21 08:02 Dose: 3 ml Documented by: DARIA Spironolactone (Spironolactone 25 Mg Tablet) 25 mg PO BID@0900,1800 [facility]; Protocol Last Admin: 08/11/21 08:02 Dose: 25 mg Documented by: DARIA Thiamine HCl (Thiamine Hcl 100 Mg Tablet) 100 mg PO DAILY [facility] Last Admin: 08/11/21 08:03 Dose: 100 mg Documented by: DARIA Labs CBC & Chem 7: 08/10/21 06:22 08/11/21 05:52 Labs: Laboratory Results - last 24 hr 08/10/21 08/10/21 08/10/21 11:34 15:23 19:45 Anion Gap Estim Creat Clear Calc Estimated GFR POC Glucose 186 H 162 H 126 H Random Glucose Calcium Magnesium 08/11/21 08/11/21 05:52 07:30 Anion Gap 10 L Estim Creat Clear Calc 204.9 Estimated GFR > 60 POC Glucose 127 H Random Glucose 130 H Calcium 7.7 L Magnesium 1.3 L* Microbiology Microbiology Results: Microbiology 08/04/21 11:00 Fungal Identification - Preliminary Ascites Fluid No growth after 1 week. Assessment and Plan (1) Ascites: Status: Acute (2) Acute hepatic encephalopathy: Status: Acute Plan This is a 55 year old male with history of alcohol dependence, withdrawal seizures, liver cirrhosis, DM, HTN who was brought to the emergency department by EMS due to lethargy found to have numerous abnormalities including decompensated liver failure, ascites, SAUL Hypoagnesemia magnesium persistently low ? r/t GI losses; PPI IV stopped continue rifaximin, lactulose decreased replace and follow Decompensated liver cirrhosis with ascites and thrombocytopenia cirrhosis secondary to alcohol abuse. meld score 29 on admission. Maddrey discriminant function 34.9 GI following LFTs trending down started on po lasix/aldactone during this admission s/p paracentesis 08/04, 10 liters removed repeat paracentesis pending Probable GI bleed resolved admitted with INR elevated, guiac positive; dried blood in mouth. Has had no other overt bleeding noted since seen by GI, no need for EGD. Octreotide stopped H/H has remained stable follow CBC ? Toxic Metabolic encephalopathy/ hepatic encephalopathy. mental status improved ammonia 124 down to 46 continue po lactulose lower dose due to diarrhea initially treated with high dose thiamine due to possibility of Wernicke encephalopathy, completed alcohol dependence with high risk for withdrawal history of alcohol withdrawal seizures in the past has completed phenobarbital protocol seizure precautions supplementation with thiamine, folate seen by care team SAUL. resolved likely prerenal Improving follow BMP coagulopathy r/t liver disease Elevated lactic acid secondary to dehydration/ liver dysfunction/ metformin No evidence of sepsis treated with IVF DM hold metformin SSI, POCs mood hold sertraline for now can resume when more awake HTN hold lisinopril for SAUL, hypotension dvt ppx - mechanical devices code status -full code attending Dr. Mabry dispo: seen by PT, rec STR. has been, awaiting insurance authorization Continue hospitalization for tachycardia, hypomagnesemia and awaiting rehab placement for safe disposition Quality Stroke Does the patient have a stroke diagnosis?: No VTE Prior VTE?: No VTE Risk Level:: Medical - moderate - high VTE Device Contraindication: N/A - Device Ordered VTE Drug Contraindication: Treatment Not Indicated
[2021-08-11] MEDS: Lidocaine HCl 1 % MPF 5 ML VIAL 4 ML SUBCUT (10:44)
--- NOTE | 2021-08-11 11:21 | HO.RADPN ---
RADIOLOGY Narrative Narrative: RLQ paracentesis performed using 5 fr catheter. L dark clear yellow fluid removed. No specimen sent.
[2021-08-11 11:55] LABS: Glucose, Whole Blood 149 mg/dL (60-115)
--- NOTE | 2021-08-11 12:44 | MHC.CM.PN ---
[facility] HAS AUTH TO ADMIT PATIENT WILL REMAIN ONE MORE DAY AND TRANSFER TO REHAB ON SATURDAY 08/12 CURRENTLY HAVING MAG. REPLENISHED
[2021-08-11 15:37] LABS: Glucose, Whole Blood 172 mg/dL (60-115)
[2021-08-11] MEDS: Insulin Lispro 100 UNIT/ML 3 ML VIAL SUBCUT (16:52)
[2021-08-11 19:38] LABS: Glucose, Whole Blood 121 mg/dL (60-115)
[2021-08-12 04:00] VITALS: BP 114/65; PULSE 107; RESP 18; TEMP 37; O2SAT 95
[2021-08-12] MEDS: Omeprazole 40 MG CAPSULE.DR PO (05:48)
[2021-08-12 06:11] LABS: INTERNATIONAL NORM RATIO 1.9 (0.9-1.1); Prothrombin Time 21.4 SEC (9.9-13.0)
[2021-08-12 06:21] LABS: Alanine Aminotransferase 34 U/L (0-40); Alkaline Phosphatase 130 U/L (39-117); Aspartate Amino Transferase 94 U/L (5-37); Bilirubin Direct 7.6 mg/dL (0.0-0.5); Bilirubin Total 11.4 mg/dL (0.0-1.0); Magnesium 1.5 mg/dL (1.6-2.6); Total Protein 5.7 g/dL (6.5-8.0)
[2021-08-12 06:25] LABS: Anion Gap 9 (12-20); Blood Urea Nitrogen 6 mg/dL (9-16); Calcium 7.7 mg/dL (8.4-10.2); Carbon Dioxide 30 mmol/L (22-29); Chloride 97 mmol/L (96-108); Creatinine Clr Calc Pharmacy 190.5; Estimated Glomerular Filt Rate > 60; Glucose Random 160 mg/dL (60-115); Potassium 3.3 mmol/L (3.3-5.1); Sodium 133 mmol/L (135-145)
[2021-08-12 07:24] VITALS: BP 104/59; PULSE 105; RESP 17; TEMP 36.9; O2SAT 93
[2021-08-12 07:32] LABS: Glucose, Whole Blood 133 mg/dL (60-115)
[2021-08-12] MEDS: Magnesium Sulfate/H2O 2 GM/50 ML PIGGYBACK IV (07:49)
[2021-08-12] MEDS: 0.9 % Sodium Chloride Flush 3 ML SYRINGE IVFLUSH (07:49)
[2021-08-12] MEDS: Spironolactone 25 MG TABLET PO (07:51)
[2021-08-12] MEDS: Furosemide 20 MG TABLET PO (07:51)
[2021-08-12] MEDS: Folic Acid 1 MG TABLET PO (07:51)
[2021-08-12] MEDS: Thiamine HCL 100 MG TABLET PO (07:51)
[2021-08-12] MEDS: rifAXIMin 550 MG TABLET PO (07:51)
[2021-08-12] MEDS: Magnesium Oxide 400 MG TABLET PO (07:52)
[2021-08-12] MEDS: Lactulose 20 GM/30 ML SOLUTION PO (07:52)
--- NOTE | 2021-08-12 08:42 | P.PNIM_ITS ---
Subjective Subjective Date of Service: 08/12/21 Review of Systems Follow up ESLD doing better no pain more awake Physical Exam Vital Signs: Vital Signs: Last Vital Signs Temp 98.4 F 08/12/21 07:24 Pulse 105 H 08/12/21 07:24 Resp 17 08/12/21 07:24 BP 104/59 L 08/12/21 07:24 Pulse Ox 93 08/12/21 07:24 BMI result Body Mass Index 41.8 Appearing in no acute distress Jaundice lung sounds are clear to auscultation heart regular rate rhythm, clear S1, S2 positive bowel sounds, abdomen is soft, nontender neuro patient is alert x3, no focal deficits Objective Data Active Medications Dextrose (Dextrose 50 % 25 Gm/50 Ml Syringe) 25 gm IVPUSH Q15M PRN; Protocol PRN Reason: per Hypoglycemia Standing Ord. Docusate Sodium (Docusate Sodium 100 Mg Capsule) 100 mg PO DAILY PRN PRN Reason: Constipation Folic Acid (Folic Acid 1 Mg Tablet) 1 mg PO DAILY [facility] Last Admin: 08/12/21 07:51 Dose: 1 mg Documented by: VARGAS Furosemide (Furosemide 20 Mg Tablet) 20 mg PO DAILY [facility]; Protocol Last Admin: 08/12/21 07:51 Dose: 20 mg Documented by: VARGAS Glucose (Glucose Gel 15 Gm Gel..Gram.) 15 gm PO Q15M PRN; Protocol PRN Reason: per Hypoglycemia Standing Ord. Magnesium Sulfate (Magnesium Sulfate/H2o) 2 gm in 50 mls @ 25 mls/hr IV ONCE ONE Stop: 08/12/21 09:33 Last Admin: 08/12/21 07:49 Dose: 25 mls/hr Documented by: VARGAS Insulin Human Lispro (Insulin Lispro 100 Unit/Ml 3 Ml Vial) 0 unit SUBCUT QIDACHS [facility]; Protocol Last Admin: 08/12/21 07:26 Dose: Not Given Documented by: VARGAS Non-Admin Reason: No Insulin Coverage Lactulose (Lactulose 20 Gm/30 Ml Solution) 20 gm PO BID [facility] Last Admin: 08/12/21 07:52 Dose: 20 gm Documented by: VARGAS Levalbuterol HCl (Levalbuterol Hcl 1.25 Mg/0.5 Ml Vial.Neb) 1.25 mg INHALE Q4H PRN PRN Reason: Shortness of Breath Magnesium Oxide (Magnesium Oxide 400 Mg Tablet) 400 mg PO BID [facility] Last Admin: 08/12/21 07:52 Dose: 400 mg Documented by: VARGAS Omeprazole (Omeprazole 40 Mg Capsule.Dr) 40 mg PO DAILY@0630 [facility] Last Admin: 08/12/21 05:48 Dose: 40 mg Documented by: MONICA Pharmacy Consult (Consult Rx Perform Med Rec) 1 each MISCELLANE ONCE PRN PRN Reason: Consult order Pharmacy Consult (Consult Rx Etoh Phenob Po Dose) 1 each MISCELLANE ONCE PRN; Protocol PRN Reason: Consult order Rifaximin (Rifaximin 550 Mg Tablet) 550 mg PO BID [facility] Last Admin: 08/12/21 07:51 Dose: 550 mg Documented by: VARGAS Sodium Chloride (0.9 % Sodium Chloride Flush 3 Ml Syringe) 3 ml IVFLUSH QSHIFT [facility] Last Admin: 08/12/21 07:49 Dose: 3 ml Documented by: VARGAS Spironolactone (Spironolactone 25 Mg Tablet) 25 mg PO BID@0900,1800 [facility]; Protocol Last Admin: 08/12/21 07:51 Dose: 25 mg Documented by: VARGAS Thiamine HCl (Thiamine Hcl 100 Mg Tablet) 100 mg PO DAILY [facility] Last Admin: 08/12/21 07:51 Dose: 100 mg Documented by: VARGAS Labs CBC & Chem 7: 08/10/21 06:22 08/12/21 05:24 Labs: Laboratory Results - last 24 hr 08/10/21 08/11/21 08/11/21 06:22 11:35 15:18 Smear Path Review SEE NOTE PT INR Anion Gap Estim Creat Clear Calc Estimated GFR POC Glucose 149 H 172 H Random Glucose Calcium Magnesium Total Bilirubin Direct Bilirubin AST ALT Alkaline Phosphatase Total Protein Albumin 08/11/21 08/12/21 08/12/21 19:15 05:24 05:24 Smear Path Review PT 21.4 H INR 1.9 H Anion Gap Estim Creat Clear Calc Estimated GFR POC Glucose 121 H Random Glucose Calcium Magnesium 1.5 L Total Bilirubin 11.4 H Direct Bilirubin 7.6 H AST 94 H ALT 34 Alkaline Phosphatase 130 H Total Protein 5.7 L Albumin 2.0 L 08/12/21 08/12/21 05:24 07:22 Smear Path Review PT INR Anion Gap 9 L Estim Creat Clear Calc 190.5 Estimated GFR > 60 POC Glucose 133 H Random Glucose 160 H Calcium 7.7 L Magnesium Total Bilirubin Direct Bilirubin AST ALT Alkaline Phosphatase Total Protein Albumin Microbiology Microbiology Results: Microbiology 08/04/21 11:00 Fungal Identification - Preliminary Ascites Fluid No growth after 1 week. Assessment and Plan (1) Ascites: Status: Acute (2) Acute hepatic encephalopathy: Status: Acute Plan This is a 55 year old male with history of alcohol dependence, withdrawal seizu res, liver cirrhosis, DM, HTN who was brought to the emergency department by EMS due to lethargy found to have numerous abnormalities including decompensated liver failure, ascites, SAUL Hypoagnesemia, improving but persistently low ? r/t GI losses, which have slowed down; PPI IV stopped continue rifaximin, lactulose decreased replace with IV and po Decompensated liver cirrhosis with ascites and thrombocytopenia cirrhosis secondary to alcohol abuse. meld score 29 on admission. Maddrey disc riminant function 34.9 GI following LFTs trending down started on po lasix/aldactone during this admission s/p paracentesis 08/04, 10 liters removed, repeat paracentesis 08/11 yielded 8 liters of yellow ascites fluid Probable GI bleed resolved admitted with INR elevated, guiac positive; dried blood in mouth. Has had no other overt bleeding noted since seen by GI, no need for EGD. Octreotide stopped H/H has remained stable follow CBC ? Toxic Metabolic encephalopathy/ hepatic encephalopathy. mental status improved ammonia 124 down to 46 continue po lactulose lower dose due to diarrhea initially treated with high dose thiamine due to possibility of Wernicke encephalopathy, completed alcohol dependence with high risk for withdrawal history of alcohol withdrawal seizures in the past has completed phenobarbital protocol seizure precautions supplementation with thiamine, folate seen by care team SAUL. resolved likely prerenal Improving follow BMP coagulopathy r/t liver disease Elevated lactic acid secondary to dehydration/ liver dysfunction/ metformin No evidence of sepsis treated with IVF DM hold metformin SSI, POCs mood hold sertraline for now can resume when more awake HTN hold lisinopril for SAUL, hypotension dvt ppx - mechanical devices code status -full code attending Dr. Mabry dispo: seen by PT, rec STR. has been, awaiting insurance authorization Continue hospitalization for tachycardia, hypomagnesemia and awaiting rehab placement for safe disposition Quality Stroke Does the patient have a stroke diagnosis?: No VTE Prior VTE?: No VTE Risk Level:: Medical - moderate - high VTE Device Contraindication: N/A - Device Ordered VTE Drug Contraindication: Treatment Not Indicated
--- NOTE | 2021-08-12 10:29 | P.DS_ITS ---
DS: Providers Provider Date of Service: 08/12/21 Date of admission: 08/01/21 17:22 Primary care physician: Baldomero Abel MD Consults: 08/01/21 17:22 Consult to Gastroenterology Routine Consulting Provider: Tho Carnes Reason for consultation: etoh abuse, cirrhosis, guiac + Has provider been notified: No 08/03/21 07:28 Consult to Care Team Routine Comment: Reason for consultation: alcohol abuse Attending physician on discharge: [facility] Discharging clinician: Dawna Williamson DS: Diagnosis Discharge Diagnosis (1) Ascites: Status: Acute (2) Acute hepatic encephalopathy: Status: Acute DS: Summary Hospital Course Hospital Course: From H&P on day of admission this is a 55-year-old male was brought to the emergency department by EMS after his roommate called due to weakness.? EMS found him covered in stool and urine with empty alcohol bottles all around. He was lethargic but arousable to verbal stimuli. ? He was initially hypotensive on arrival with blood pressure in 80s.? he was noted to have dried blood in his mouth.? digital rectal exam revealed brown stool that was heme positive.? LFTs were elevated, ammonia level was elevated at 124, lactic acid 3.9, creatinine 2.44. CPK 489, magnesium 1.5. He was treated with IVF, IV magnesium, IVF and albumin. He was empirically covered for SBP with IV ceftriaxone. He denies any abdominal pain at this time. ? He is able to answer some simple questions. Patient has a history of alcohol abuse with withdrawal seizures. He is unsure if he had a seizure. Gven multiple abnormalities the decision was made to admit him to the hospital for further management. Discharge diagnoses: Decompensated liver cirrhosis with ascites and thrombocytopenia Toxic metabolic encephalopathy secondary to elevated ammonia Alcohol dependence/alcohol withdrawal SAUL Mild rhabdomyolysis Hypokalemia/hypomagnesemia Lactic acidosis Possible GI bleed Hospital course by problem: Decompensated liver cirrhosis with ascites and thrombocytopenia.?cirrhosis secondary to alcohol abuse. meld score 29 on admission. Maddrey discriminant function on admission 34.9, he does qualify for steroids but given concern over GI bleeding was not treated with prednisone.He was?Seen by GI and started on p.o. Lasix and Aldactone for ascites. He underwent paracentesis x2 with removal of 10 L and 8 L. he was empirically treated with IV ceftriaxone but fluid studies showed no evidence of SBP in ceftriaxone was discontinued. LFTs are trending down. Patient should follow up with GI as outpatient. The importance of alcohol cessation was discussed with him. Probable GI bleed. admitted with INR elevated, guiac positive; dried blood in mouth on admission. no other overt bleeding noted since. initially treated with IV PPI and octreotide drip. seen by GI, no need for EGD. H/H has remained stable. PPI transitioned to po and octreotide drip stopped. ? Toxic Metabolic encephalopathy/ hepatic encephalopathy. Mental status improved. ammonia improved from 124 down to 46 with initiation of lactulose. Initially treated empirically with high dose thiamine for possible Wernicke encephalopathy. Lactulose decreased which helped to decrease diarrhea alcohol dependence with high risk for withdrawal. ?history of alcohol withdrawal seizures in the past. Treated with phenobarbital protocol. No seizure activity during hospitalization. The supplemented with thiamine and folic acid. Was seen by care team during hospitalization. SAUL. resolved. likely prerenal. Resolved. Hypokalemia/hypomagnesemia. Hypokalemia improved with supplementation. Patient continues to have hypomagnesemia. Was treated with IV and oral magnesium. Will be discharged with oral magnesium supplementation. Recommend rechecking electrolytes on Wednesday and weekly thereafter until levels stabilize and supplement as needed. Improved with improvement of diarrhea Lactic acidosis. Lactic acid was initially elevated which was likely secondary to dehydration coupled with liver dysfunction and metformin use. There was no evidence of sepsis or infectious process. Resolved with IV fluid. Patient was evaluated by Physical therapy who recommended short-term rehab. He will be transferred to short-term rehab in stable condition. Anticipate less than 30 day stay Time Spent with Patient Time attestation: Total time spent providing and/or coordinating discharge services: Discharge coordination time: Greater than 30 minutes Quality: Safe Use of Opioids Does Pt have an Active Cancer Diagnosis on the Problem List?: No Quality: Stroke Does the patient have a stroke diagnosis?: No Physical Exam Vital Signs: Vital Signs: Last Vital Signs Temp 98.4 F 08/12/21 07:24 Pulse 105 H 08/12/21 07:24 Resp 17 08/12/21 07:24 BP 104/59 L 08/12/21 07:24 Pulse Ox 93 08/12/21 07:24 BMI result Body Mass Index 41.8 Appearing in no acute distress Jaundice head is normocephalic atraumatic eyes pupils are PERRLA sclera is anicteric mouth throat mucous membranes are intact and moist neck is supple no lymphadenopathy, no JVD noted lung sounds are clear to auscultation heart regular rate rhythm, clear S1, S2 positive bowel sounds, abdomen is soft, nontender, large abdomen neuro patient is alert x3, no focal deficits DS: Data Data Completed and Pending Labs on day of discharge: Laboratory Results - last 24 hr 08/11/21 08/11/21 08/11/21 11:35 15:18 19:15 PT INR Sodium Potassium Chloride Carbon Dioxide Anion Gap BUN Creatinine Estim Creat Clear Calc Estimated GFR POC Glucose 149 H 172 H 121 H Random Glucose Calcium Magnesium Total Bilirubin Direct Bilirubin AST ALT Alkaline Phosphatase Total Protein Albumin 08/12/21 08/12/21 08/12/21 05:24 05:24 05:24 PT 21.4 H INR 1.9 H Sodium 133 L Potassium 3.3 Chloride 97 Carbon Dioxide 30 H Anion Gap 9 L BUN 6 L Creatinine 0.57 Estim Creat Clear Calc 190.5 Estimated GFR > 60 POC Glucose Random Glucose 160 H Calcium 7.7 L Magnesium 1.5 L Total Bilirubin 11.4 H Direct Bilirubin 7.6 H AST 94 H ALT 34 Alkaline Phosphatase 130 H Total Protein 5.7 L Albumin 2.0 L 08/12/21 07:22 PT INR Sodium Potassium Chloride Carbon Dioxide Anion Gap BUN Creatinine Estim Creat Clear Calc Estimated GFR POC Glucose 133 H Random Glucose Calcium Magnesium Total Bilirubin Direct Bilirubin AST ALT Alkaline Phosphatase Total Protein Albumin Preliminary micro results at discharge 08/04/21 11:00 Fungal Identification - Preliminary Ascites Fluid No growth after 1 week. Discharge Plan Discharge Anticipated Discharge Date/Time: 08/12/21 14:00 Patient Disposition: Xfer SNF Discharge Diagnosis: decompensated liver failure SAUL encephalopathy Referrals: Baldomero Abel MD [Primary Care Provider] - 1 Week Tho Carnes [Physician] - 2 Weeks Discharge Medications: New spironolactone 25 mg Tablet 25 mg PO BID@0900,1800 Qty: 1 0RF Protocol: Hold for SBP< HOLD for SBP < : 90 furosemide 20 mg Tablet 20 mg PO DAILY Qty: 1 0RF Protocol: Hold for SBP< HOLD for SBP < : 90 lactulose 20 gram/30 mL Solution 20 g PO TID Qty: 1200 0RF magnesium oxide 400 mg (241.3 mg magnesium) Tablet 400 mg PO BID Qty: 1 0RF omeprazole 40 mg Capsule,Delayed Release(Dr/Ec) 40 mg PO DAILY@0630 Qty: 1 0RF insulin lispro [Humalog U-100 Insulin] 100 unit/mL Solution See Protocol unit subcut QIDACHS Qty: 10 0RF Protocol: Insulin Correction Scale Less than or equal to 110 ---- Give (units): 0 111 to 150 Give (units): 0 151 to 200 Give (units): 2 201 to 250 Give (units): 4 251 to 300 Give (units): 6 301 to 350 Give (units): 8 Greater than 350 Give (units): 10 Call MD if Blood Glucose > : 350 Continued lidocaine 5 % adhesive patch,medicated 1 patch topical DAILY 0RF folic acid 1 mg Tablet 1 mg PO DAILY 0RF metformin 500 mg Tablet 1,000 mg PO BIDWM 0RF thiamine HCl (vitamin B1) 100 mg tablet 1 tab PO DAILY 0RF Held sertraline 25 mg Tablet 12.5 mg DAILY 0RF Hold Instructions: held during hospitalization, can be resumed outpateint if needed Discontinued lisinopril 5 mg Tablet 5 mg PO DAILY 0RF omeprazole 20 mg Capsule,Delayed Release(Dr/Ec) 20 mg PO DAILY@0630 0RF Discharge Orders: Discharge Order (Routine); Ordered 08/12/21 Ordered By: Dawna Williamson Diet: advance to usual diet Activity on Discharge: As tolerated Stand Alone Forms: Patient Portal Discharge page Care Plan Goals: see below Health Concerns: Liver cirrhosis with ascites/thrombocytopenia alcohol dependence and withdrawal hepatic encephalopathy hypomagnesemia GI bleed SAUL Plan of Treatment: Continue lactulose now at decreased dose Continue aldactone/lasix for ascites Continue magnesium, thiamine and folic acid supplementation Monitor electrolytes (including magnesium), liver function and renal function weekly, starting Tuesday 08/15 for 1-2 weeks then periodically as needed Call to schedule follow up appointment with GI Call to schedule follow up appointment with PCP Do not drink alcohol Assessment: see discharge summary
[2021-08-12 11:19] LABS: COVID-19 Test Negative (Negative)
[2021-08-12 11:35] LABS: Glucose, Whole Blood 188 mg/dL (60-115)
[2021-08-12] MEDS: Insulin Lispro 100 UNIT/ML 3 ML VIAL SUBCUT (11:44)
--- NOTE | 2021-08-12 11:52 | MHC.CM.PN ---
Addendum entered by Sarah Pope 08/12/21 12:09: PATIENT'S HCP RUBIO ([phone]) AWARE OF DC PLANS. Original Note: Patient is Dc to [facility] for [facility] RN, patient, and unit aware of plan.
[2021-08-12 12:00] VITALS: BP 105/59; PULSE 113; RESP 18; TEMP 36.8; O2SAT 95
[2021-08-12 15:47] VITALS: BP 115/66; PULSE 109; RESP 16; TEMP 36.9; O2SAT 95
[2021-08-12 15:56] LABS: Glucose, Whole Blood 171 mg/dL (60-115)
== END 2021-08-12 16:47 | disposition skilled nursing facility (03) | DRG 280 ==
LOC: HO.ED 14:37 → HO.EDOVER 17:33 → HO.S3 21:26
PROVIDERS: Hospitalist; Internal Medicine; Radiology Diagnostic Radiology; Admitting Provider Physician Assistant Medical; Emergency Provider Emergency Medicine; PCP Internal Medicine; Visit Provider Nurse Practitioner Acute Care
PROC: 0W9G3ZZ Drainage of Peritoneal Cavity, Percutaneous Approach (ICD-10-PCS; principal; 2021-08-04 15:30)
DX: K70.31 Alcoholic cirrhosis of liver with ascites (principal); G92.8 Other toxic encephalopathy; D68.4 Acquired coagulation factor deficiency; M62.82 Rhabdomyolysis; I95.9 Hypotension, unspecified; E51.2 Wernicke's encephalopathy; D69.59 Other secondary thrombocytopenia; K92.2 Gastrointestinal hemorrhage, unspecified; F10.230 Alcohol dependence with withdrawal, uncomplicated; E83.42 Hypomagnesemia; E86.0 Dehydration; K72.00 Acute and subacute hepatic failure without coma; E66.01 Morbid (severe) obesity due to excess calories; E11.9 Type 2 diabetes mellitus without complications; E87.6 Hypokalemia; F39 Unspecified mood [affective] disorder; Z68.41 Body mass index [BMI] 40.0-44.9, adult; Z20.822 Contact with and (suspected) exposure to COVID-19; Z79.4 Long term (current) use of insulin; Z88.5 Allergy status to narcotic agent; Z88.6 Allergy status to analgesic agent; Z88.8 Allergy status to other drugs, medicaments and biological substances; Z79.84 Long term (current) use of oral hypoglycemic drugs; Z79.899 Other long term (current) drug therapy
CPT/HCPCS: 36415; 49083; 70450; 71045; 71046; 76705; 80048; 80076; 80143; 80179; 80307; 81001; 82042; 82077; 82140; 82150; 82272; 82550; 82803; 82945; 82947; 83605; 83615; 83690; 83735; 83986; 84155; 84157; 84484; 85025; 85027; 85610; 85730; 86850; 86900; 86901; 87040; 87071; 87073; 87086; 87102; 87205; 87635; 89051; 93005; 96365; 96366; 96367; 96375; 97110; 97116; 97162; 97530; 99285; 99291; C1758; J0696; J2354; J3411; J3430; J3475; P9047

== ENCOUNTER 2021-09-28 18:56 | Emergency (ER) | payer OTHER, SELFPAY ==
[2021-09-28 19:01] VITALS: BP 104/68; BP 108/78; PULSE 96; PULSE 99; RESP 16; TEMP 37.1; O2SAT 99; BMI 34.0
--- NOTE | 2021-09-28 19:17 | ED_ITS ---
HPI - Abdominal Pain General Chief Complaint: Abdominal Pain Stated Complaint: abdominal distension Time Seen by Provider: 09/28/21 19:17 Source: patient Mode of arrival: EMS Limitations: no limitations History of Present Illness HPI narrative: Patient is 55 years old with long standing history of alcohol abuse with cirrhosis and ascites, encephalopathy, and ETOH hepatitis, coagulopathy with thrombocytopenia patient had acetic tap done on 08/11/2021 and 8 L of ascitic fluid was removed since then patient been in correction and not drinking any alcohol comes here for gradual ED worsening of abdominal distension and worsening of discomfort patient denies any significant shortness of breath no fever no chills no blood in the stool no vomiting patient is on furosemide 40 mg daily and lactulose . Denies any skin rash no change in sensorium. Related Data Home Medications Medication Instructions Recorded Confirmed folic acid 1 mg tablet 1 mg PO DAILY 08/01/21 08/01/21 lidocaine 5 % topical patch 1 patch topical DAILY 08/01/21 08/01/21 metformin 500 mg tablet 1,000 mg PO BIDWM 08/01/21 08/01/21 sertraline 25 mg tablet 12.5 mg DAILY 08/01/21 08/01/21 thiamine HCl (vitamin B1) 100 mg 1 tab PO DAILY 08/01/21 08/01/21 tablet Previous Rx's Medication Instructions Recorded furosemide 20 mg tablet 20 mg PO DAILY #1 tab 08/08/21 insulin lispro 100 unit/mL See Protocol subcut QIDACHS #10 mL 08/08/21 subcutaneous solution (Humalog U-100 Insulin) lactulose 20 gram/30 mL oral 20 g (30 mL) PO TID #1,200 mL 08/08/21 solution magnesium oxide 400 mg (241.3 mg 400 mg PO BID #1 tab 08/08/21 magnesium) tablet omeprazole 40 mg capsule,delayed 40 mg PO DAILY@0630 #1 cap 08/08/21 release spironolactone 25 mg tablet 25 mg PO BID@0900,1800 #1 tab 08/08/21 Allergies Allergy/AdvReac Type Severity Reaction Status Date / Time acetaminophen [From PERCOCET] Allergy Severe AGITATION Verified 08/01/21 13:21 oxycodone [From PERCOCET] Allergy Severe AGITATION Verified 08/01/21 13:21 bee pollen [Bee Stings] Allergy Mild SWELLING Verified 08/01/21 13:21 lorazepam AdvReac Unknown AGITATION Verified 08/01/21 13:21 Review of Systems Review of Systems Yes all other systems are reviewed and are negative [facility] Past Medical History Medical History Alcohol abuse Ascites Diabetes Hypertension Liver cirrhosis Withdrawal seizures Social History Social History Alcohol intake: former Patient Tobacco Use Status: Current everyday Tobacco user Smoked in Last 30 Days: No Use of substances other than those prescribed or required for medical reasons: No Advance Directives: Yes Advance Directives on File: Yes Advance Directives Date on File: 08/13/21 service: Yes Current occupational status: unemployed Physical Exam ED Vital Signs: Vital Signs - 24 hr 09/28/21 19:01 09/28/21 22:33 09/28/21 22:48 Temperature 98.8 F Pulse Rate 96 93 92 Respiratory Rate 16 16 16 Blood Pressure 104/68 105/64 108/62 Pulse Oximetry 99 100 Oxygen Delivery Method Room Air Room Air BMI result Body Mass Index 34.0 Appearance: Alert. Oriented X3. No acute distress. Eyes: + pallor + icterus ENT: Pharynx normal. Oral Mucosa moist Neck: Normal inspection. Neck supple. CVS: Normal heart rate and rhythm. Pulses normal. Respiratory: No respiratory distress. Equal air entry bilateral, no wheezing/rales/rhonchi Abdomen: significant distended with fluid thrill no rebound tenderness or guarding. Bowel sounds are present, no mass palpable, no CVA tenderness Skin: Skin warm and dry. Normal skin color. Normal skin turgor. Extremities: No lower extremity edema. No calf tenderness Neuro: Oriented X 3. No motor deficit. No sensory deficit.No cerebellar signs , cranial nerves II-XII intact no hepatic flaps Procedures Paracentesis Time Out Performed: Yes Indication: Ascites Procedure: therapeutic paracentesis Location: RLQ Local Anesthetic: lidocaine 1% Amount of anesthesia used (mL): 1 Bedside Ultrasound Used: yes, real-time guidance Preparation: sterile prep and drape Amount of fluid obtained (mL): 9,500 Fluid: cloudy and sent to lab for analysis Size of Needle Used: 7 Post Procedure Exam: awake, alert Patient Tolerated Procedure: well Complications: none MDM - Abdominal Pain Lab Data Attestation: I reviewed the patient's lab results. Result diagrams: 09/28/21 20:38 09/28/21 20:38 Labs: Lab Results 09/28/21 09/28/21 09/28/21 Range/Units 20:38 20:38 20:38 WBC 7.8 (4.8-10.8) X10*3/uL RBC 2.58 L (4.60-5.80) X10*6/uL Hgb 9.7 L (14.0-18.0) g/dl Hct 27.8 L (42.0-52.0) % MCV 107.8 H (80.0-98.0) fL MCH 37.6 H (27.0-33.0) pg MCHC 34.9 (31.0-36.0) g/dl RDW 13.8 (11.0-16.0) % Plt Count 90 L (160-400) X10*3/uL MPV 10.6 (9.4-12.4) fL Immature Gran % (Auto) 0.5 H (0.0-0.4) % Neut % (Auto) 73.5 H (45-73) % Lymph % (Auto) 13.6 L (20-40) % [place] % (Auto) 10.0 (2-11) % Eos % (Auto) 1.8 (0-4) % Baso % (Auto) 0.6 (0-2) % Lymph # (Auto) 1.1 L (1.2-4.9) X10*3/uL [place] # (Auto) 0.8 (0.1-1.2) X10*3/uL Eos # (Auto) 0.1 (0.0-0.4) X10*3/uL Baso # (Auto) 0.1 (0.0-0.2) X10*3/uL Abs Immat Gran (auto) 0.04 H (0.00-0.03) X10*3/uL Absolute Neuts (auto) 5.8 (2.0-8.3) x10*3/uL Absolute Nucleated RBC 0.000 (0.0-0.012) X10*3/uL Nucleated RBC % (auto) 0.0 (0.0-0.2) /100WBC PT (10.0-13.1) SEC INR (0.9-1.1) Sodium 130 L (135-145) mmol/L Potassium 3.9 (3.3-5.1) mmol/L Chloride 95 L (96-108) mmol/L Carbon Dioxide 29 (22-29) mmol/L Anion Gap 10 L (12-20) BUN 12 D (9-16) mg/dL Creatinine 0.65 (0.5-1.4) mg/dL Estim Creat Clear Calc 140.6 Estimated GFR > 60 Random Glucose 173 H (60-115) mg/dL Calcium 8.0 L (8.4-10.2) mg/dL Total Bilirubin 6.5 H (0.0-1.0) mg/dL AST 122 H (5-37) U/L ALT 56 H (0-40) U/L Alkaline Phosphatase 343 H D (39-117) U/L Ammonia Cancelled Total Protein 6.3 L (6.5-8.0) g/dL Albumin 2.1 L (3.5-5.0) g/dL Lipase 12 (8-78) U/L Peritoneal WBC X10*3/uL Peritoneal RBC X10*6/uL Periton Neutrophils % Periton Lymphocytes % Peritoneal Monocytes % Peritoneal Other Cells % 09/28/21 09/28/21 Range/Units 21:28 22:19 WBC (4.8-10.8) X10*3/uL RBC (4.60-5.80) X10*6/uL Hgb (14.0-18.0) g/dl Hct (42.0-52.0) % MCV (80.0-98.0) fL MCH (27.0-33.0) pg MCHC (31.0-36.0) g/dl RDW (11.0-16.0) % Plt Count (160-400) X10*3/uL MPV (9.4-12.4) fL Immature Gran % (Auto) (0.0-0.4) % Neut % (Auto) (45-73) % Lymph % (Auto) (20-40) % [place] % (Auto) (2-11) % Eos % (Auto) (0-4) % Baso % (Auto) (0-2) % Lymph # (Auto) (1.2-4.9) X10*3/uL [place] # (Auto) (0.1-1.2) X10*3/uL Eos # (Auto) (0.0-0.4) X10*3/uL Baso # (Auto) (0.0-0.2) X10*3/uL Abs Immat Gran (auto) (0.00-0.03) X10*3/uL Absolute Neuts (auto) (2.0-8.3) x10*3/uL Absolute Nucleated RBC (0.0-0.012) X10*3/uL Nucleated RBC % (auto) (0.0-0.2) /100WBC PT 22.3 H (10.0-13.1) SEC INR 1.9 H (0.9-1.1) Sodium (135-145) mmol/L Potassium (3.3-5.1) mmol/L Chloride (96-108) mmol/L Carbon Dioxide (22-29) mmol/L Anion Gap (12-20) BUN (9-16) mg/dL Creatinine (0.5-1.4) mg/dL Estim Creat Clear Calc Estimated GFR Random Glucose (60-115) mg/dL Calcium (8.4-10.2) mg/dL Total Bilirubin (0.0-1.0) mg/dL AST (5-37) U/L ALT (0-40) U/L Alkaline Phosphatase (39-117) U/L Ammonia Total Protein (6.5-8.0) g/dL Albumin (3.5-5.0) g/dL Lipase (8-78) U/L Peritoneal WBC 0.143 X10*3/uL Peritoneal RBC < 0.002 X10*6/uL Periton Neutrophils 9 % Periton Lymphocytes 28 % Peritoneal Monocytes 48 % Peritoneal Other Cells 15 % Discharge Plan Discharge Clinical Impression: Ascites due to alcoholic cirrhosis Patient Disposition: Home, Self-Care Instructions: Cirrhosis (ED), Paracentesis (DC) Additional Instructions: 9.5 L fluid was removed from your abdomen today Continue medication as prescribed and do not drink alcohol Prescriptions: No Action lidocaine 5 % adhesive patch,medicated 1 patch topical DAILY sertraline 25 mg Tablet 12.5 mg DAILY Hold Instructions: held during hospitalization, can be resumed outpateint if needed folic acid 1 mg Tablet 1 mg PO DAILY metformin 500 mg Tablet 1,000 mg PO BIDWM thiamine HCl (vitamin B1) 100 mg tablet 1 tab PO DAILY spironolactone 25 mg Tablet 25 mg PO BID@0900,1800 Qty: 1 0RF Protocol: Hold for SBP< HOLD for SBP < : 90 furosemide 20 mg Tablet 20 mg PO DAILY Qty: 1 0RF Protocol: Hold for SBP< HOLD for SBP < : 90 lactulose 20 gram/30 mL Solution 20 g PO TID Qty: 1200 0RF magnesium oxide 400 mg (241.3 mg magnesium) Tablet 400 mg PO BID Qty: 1 0RF omeprazole 40 mg Capsule,Delayed Release(Dr/Ec) 40 mg PO DAILY@0630 Qty: 1 0RF insulin lispro [Humalog U-100 Insulin] 100 unit/mL Solution See Protocol subcut QIDACHS Qty: 10 0RF Protocol: Insulin Correction Scale Less than or equal to 110 ---- Give (units): 0 111 to 150 Give (units): 0 151 to 200 Give (units): 2 201 to 250 Give (units): 4 251 to 300 Give (units): 6 301 to 350 Give (units): 8 Greater than 350 Give (units): 10 Call MD if Blood Glucose > : 350
[2021-09-28 20:43] LABS: MANUAL DIFF FLAG NO
[2021-09-28 20:52] LABS: Basophils Absolute Auto 0.1 X10*3/uL (0.0-0.2); Basophils Percent Auto 0.6 % (0-2); Eosinophils Absolute Auto 0.1 X10*3/uL (0.0-0.4); Eosinophils Percent Auto 1.8 % (0-4); Hematocrit 27.8 % (42.0-52.0); Hemoglobin 9.7 g/dl (14.0-18.0); Imm Gran Abs Auto 0.04 X10*3/uL (0.00-0.03); Imm Gran Pct Auto 0.5 % (0.0-0.4); Lymphocytes Absolute Auto 1.1 X10*3/uL (1.2-4.9); Lymphocytes Percent Auto 13.6 % (20-40); Mean Corpuscular HGB Conc 34.9 g/dl (31.0-36.0); Mean Corpuscular Hemoglobin 37.6 pg (27.0-33.0); Mean Corpuscular Volume 107.8 fL (80.0-98.0); Mean Platelet Volume 10.6 fL (9.4-12.4); Monocytes Absolute Auto 0.8 X10*3/uL (0.1-1.2); Neutrophils Absolute Auto 5.8 x10*3/uL (2.0-8.3); Neutrophils Percent Auto 73.5 % (45-73); Platelet Count 90 X10*3/uL (160-400); Red Blood Count 2.58 X10*6/uL (4.60-5.80); Red Cell Distribution Width 13.8 % (11.0-16.0); White Blood Count 7.8 X10*3/uL (4.8-10.8)
[2021-09-28 21:14] LABS: Alanine Aminotransferase 56 U/L (0-40); Albumin Level 2.1 g/dL (3.5-5.0); Alkaline Phosphatase 343 U/L (39-117); Anion Gap 10 (12-20); Aspartate Amino Transferase 122 U/L (5-37); Bilirubin Total 6.5 mg/dL (0.0-1.0); Blood Urea Nitrogen 12 mg/dL (9-16); Carbon Dioxide 29 mmol/L (22-29); Chloride 95 mmol/L (96-108); Creatinine Clr Calc Pharmacy 140.6; Estimated Glomerular Filt Rate > 60; Glucose Random 173 mg/dL (60-115); Lipase 12 U/L (8-78); Potassium 3.9 mmol/L (3.3-5.1); Sodium 130 mmol/L (135-145); Total Protein 6.3 g/dL (6.5-8.0)
[2021-09-28 21:39] LABS: INTERNATIONAL NORM RATIO 1.9 (0.9-1.1); Prothrombin Time 22.3 SEC (10.0-13.1)
[2021-09-28] MEDS: Lidocaine HCl 1 % MPF 5 ML VIAL INFILTRATI (22:09)
[2021-09-28 22:28] LABS: MN% 91.2 %; PMN% 8.8 %; WBC Peritoneal Fluid 0.143 X10*3/uL
[2021-09-28 22:33] VITALS: BP 105/64; PULSE 93; RESP 16; O2SAT 100
--- NOTE | 2021-09-28 22:34 | PC.NURSE ---
Dr. Armenta is preforming parencentesis in right lower abdomen sent samples of fluid to lab. Patients blood pressure 105/64. Patient states feeling alot better already.
[2021-09-28 22:38] LABS: RBC Peritoneal Fluid < 0.002 X10*6/uL
[2021-09-28 22:48] VITALS: BP 108/62; PULSE 92; RESP 16
[2021-09-28 22:59] LABS: BF Shift QC OK YES; Neutrophils Peritoneal Fluid 9 %
[2021-09-28 23:00] LABS: Lymphocyte Peritoneal Fl 28 %; Monocytes Peritoneal Fl 48 %; Other Peritioneal Fl 15 %
[2021-09-28] MEDS: Albumin Human 25 % 100 ML IV (23:02)
[2021-09-29] MEDS: Albumin Human 25 % 100 ML IV (00:08)
--- NOTE | 2021-09-29 00:35 | PC.NURSE ---
@ 0030 CALL PLACED TO [facility] TAKES PT INFO THEN SAYS THERE ARE NO CREWS AVAILABLE TONIGHT AND THAT SHE WILL BOOK IT FOR 07:30AM ETA.
--- NOTE | 2021-09-29 02:47 | PC.NURSE ---
Complete bed change and freddy care. [place] and drink given. Pt awaiting transport to facility in [place]. Will continue to monitor.
[2021-09-29 05:02] VITALS: BP 106/64; PULSE 94; RESP 16; O2SAT 99
== END 2021-09-29 08:25 | disposition skilled nursing facility (03) ==
PROVIDERS: Emergency Provider Internal Medicine; PCP Internal Medicine
DX: K70.31 Alcoholic cirrhosis of liver with ascites (principal); F10.10 Alcohol abuse, uncomplicated; Y90.9 Presence of alcohol in blood, level not specified; F17.200 Nicotine dependence, unspecified, uncomplicated; E11.9 Type 2 diabetes mellitus without complications; I10 Essential (primary) hypertension; Z79.899 Other long term (current) drug therapy; Z79.4 Long term (current) use of insulin
CPT/HCPCS: 49083; 80053; 83690; 85025; 85610; 87071; 87073; 87205; 89051; 99284; 99285; P9047

== ENCOUNTER 2021-09-30 14:51 | Emergency (ER) | payer OTHER, SELFPAY ==
[2021-09-30 15:14] VITALS: BP 100/57; BP 94/50; PULSE 109; RESP 19; TEMP 36.7; O2SAT 99; BMI 55.3
--- NOTE | 2021-09-30 15:29 | ED_ITS ---
HPI - Abdominal Pain General Chief Complaint: Abdominal Pain Stated Complaint: abdominal swelling Time Seen by Provider: 09/30/21 15:29 Related Data Home Medications Medication Instructions Recorded Confirmed folic acid 1 mg tablet 1 mg PO DAILY 08/01/21 08/01/21 lidocaine 5 % topical patch 1 patch topical DAILY 08/01/21 08/01/21 metformin 500 mg tablet 1,000 mg PO BIDWM 08/01/21 08/01/21 sertraline 25 mg tablet 12.5 mg DAILY 08/01/21 08/01/21 thiamine HCl (vitamin B1) 100 mg 1 tab PO DAILY 08/01/21 08/01/21 tablet Previous Rx's Medication Instructions Recorded furosemide 20 mg tablet 20 mg PO DAILY #1 tab 08/08/21 insulin lispro 100 unit/mL See Protocol subcut QIDACHS #10 mL 08/08/21 subcutaneous solution (Humalog U-100 Insulin) lactulose 20 gram/30 mL oral 20 g (30 mL) PO TID #1,200 mL 08/08/21 solution magnesium oxide 400 mg (241.3 mg 400 mg PO BID #1 tab 08/08/21 magnesium) tablet omeprazole 40 mg capsule,delayed 40 mg PO DAILY@0630 #1 cap 08/08/21 release spironolactone 25 mg tablet 25 mg PO BID@0900,1800 #1 tab 08/08/21 Allergies Allergy/AdvReac Type Severity Reaction Status Date / Time acetaminophen [From PERCOCET] Allergy Severe AGITATION Verified 08/01/21 13:21 oxycodone [From PERCOCET] Allergy Severe AGITATION Verified 08/01/21 13:21 bee pollen [Bee Stings] Allergy Mild SWELLING Verified 08/01/21 13:21 lorazepam AdvReac Unknown AGITATION Verified 08/01/21 13:21 Review of Systems Constitutional: Reports no additional constitutional complaints Eyes: Reports no additional eye complaints Denies dizziness Cardiovascular: Reports no additional cardiovascular complaints Respiratory: Reports as per HPI Gastrointestinal: Reports no additional gastrointestinal complaints Musculoskeletal: Reports no additional musculoskeletal complaints Skin/Breast: Denies rash Reports system reviewed and no additional complaints, except as documented, Denies dizziness and Denies Sensory deficit (Neuro) Psychiatric: Denies anxiety PMFSH Past Medical History Medical History Alcohol abuse Ascites Diabetes Hypertension Liver cirrhosis Withdrawal seizures Social History Social History Alcohol intake: former Patient Tobacco Use Status: Never used Tobacco Use of substances other than those prescribed or required for medical reasons: No Advance Directives: Yes Advance Directives on File: Yes Advance Directives Date on File: 08/13/21 service: Yes Current occupational status: unemployed Physical Exam ED Vital Signs: Vital Signs - 24 hr 09/30/21 15:14 09/30/21 16:03 Temperature 98.1 F Pulse Rate 109 H 102 H Respiratory Rate 19 16 Blood Pressure 94/50 L 117/73 Pulse Oximetry 99 99 Oxygen Delivery Method Room Air Room Air BMI result Body Mass Index 55.3 Const Other: Male looking older than stated age, chronically ill Orientation/consciousness: oriented to person and patient oriented x3 Limitations: no limitations HENMT Head: Yes normal to inspection Ears: external ears normal General nose exam: Normal external nose present Mouth: Normal oral and palatal mucosa present and oropharynx normal Throat: Yes posterior oropharynx normal Eyes General: appearance normal, both eyes and all related structures Neck Neck: Yes normal visual inspection Chest Chest palpation & inspection: normal inspection of the chest Resp Auscultation: clear to auscultation bilaterally Cardio Jugular venous distension: no JVD Rate: regular rate Rhythm: regular rhythm Heart sounds: S1 normal heart sound present and S2 normal heart sound present GI Other: distended with ascites, fluid shift bulging flanks, not peritoneal Auscultation: normal bowel sounds General: Yes no CVA tenderness Back/Spine/Pelvis Back: no CVA tenderness Skin General skin exam: no rashes or lesions noted Neuro General: oriented to person and patient oriented x3 Cranial nerves: Yes CN's II-XII intact bilaterally Motor exam (neuro): 5/5 motor strength present throughout Sensory Exam: No Sensory deficit (Neuro) Extrem General: Yes normal to inspection Psych Appearance: grossly normal Procedures Procedure Narrative Procedure Narrative: Patient prepped and draped in sterile fashion, 1% lidocaine used for anesthesia, Catheter introduced into the peritoneum and 4L drained. Patient tolerated paracentesis well. Course Reevaluation(s) Reevaluation #1: Will check labs and peritoneal fluid and likely dc home Time: 16:50 Reevaluation #2: patient resting comfortably, will dc home Time: 17:27 MDM - Abdominal Pain Lab Data Result diagrams: 09/30/21 16:53 09/30/21 16:53 Labs: Lab Results 09/30/21 09/30/21 09/30/21 Range/Units 16:44 16:53 16:53 WBC 7.6 (4.8-10.8) X10*3/uL RBC 2.65 L (4.60-5.80) X10*6/uL Hgb 9.8 L (14.0-18.0) g/dl Hct 28.5 L (42.0-52.0) % MCV 107.5 H (80.0-98.0) fL MCH 37.0 H (27.0-33.0) pg MCHC 34.4 (31.0-36.0) g/dl RDW 13.6 (11.0-16.0) % Plt Count 74 L (160-400) X10*3/uL MPV 10.0 (9.4-12.4) fL Immature Gran % (Auto) 0.4 (0.0-0.4) % Neut % (Auto) 73.9 H (45-73) % Lymph % (Auto) 12.8 L (20-40) % [place] % (Auto) 10.9 (2-11) % Eos % (Auto) 1.3 (0-4) % Baso % (Auto) 0.7 (0-2) % Lymph # (Auto) 1.0 L (1.2-4.9) X10*3/uL [place] # (Auto) 0.8 (0.1-1.2) X10*3/uL Eos # (Auto) 0.1 (0.0-0.4) X10*3/uL Baso # (Auto) 0.1 (0.0-0.2) X10*3/uL Abs Immat Gran (auto) 0.03 (0.00-0.03) X10*3/uL Absolute Neuts (auto) 5.6 (2.0-8.3) x10*3/uL Absolute Nucleated RBC 0.000 (0.0-0.012) X10*3/uL Nucleated RBC % (auto) 0.0 (0.0-0.2) /100WBC Sodium 131 L (135-145) mmol/L Potassium 3.6 (3.3-5.1) mmol/L Chloride 98 (96-108) mmol/L Carbon Dioxide 26 (22-29) mmol/L Anion Gap 11 L (12-20) BUN 9 (9-16) mg/dL Creatinine 0.78 (0.5-1.4) mg/dL Estim Creat Clear Calc 184.6 Estimated GFR > 60 Random Glucose 244 H D (60-115) mg/dL Calcium 8.0 L (8.4-10.2) mg/dL Total Bilirubin 6.5 H (0.0-1.0) mg/dL AST 123 H (5-37) U/L ALT 57 H (0-40) U/L Alkaline Phosphatase 303 H (39-117) U/L Total Protein 6.0 L (6.5-8.0) g/dL Albumin 2.4 L (3.5-5.0) g/dL Peritoneal WBC 0.383 X10*3/uL Peritoneal RBC 0.005 X10*6/uL Discharge Plan Discharge Clinical Impression: Cirrhosis, Ascites Patient Disposition: Home, Self-Care Instructions: Cirrhosis (ED), Ascites (ED) Prescriptions: No Action lidocaine 5 % adhesive patch,medicated 1 patch topical DAILY sertraline 25 mg Tablet 12.5 mg DAILY Hold Instructions: held during hospitalization, can be resumed outpateint if needed folic acid 1 mg Tablet 1 mg PO DAILY metformin 500 mg Tablet 1,000 mg PO BIDWM thiamine HCl (vitamin B1) 100 mg tablet 1 tab PO DAILY spironolactone 25 mg Tablet 25 mg PO BID@0900,1800 Qty: 1 0RF Protocol: Hold for SBP< HOLD for SBP < : 90 furosemide 20 mg Tablet 20 mg PO DAILY Qty: 1 0RF Protocol: Hold for SBP< HOLD for SBP < : 90 lactulose 20 gram/30 mL Solution 20 g PO TID Qty: 1200 0RF magnesium oxide 400 mg (241.3 mg magnesium) Tablet 400 mg PO BID Qty: 1 0RF omeprazole 40 mg Capsule,Delayed Release(Dr/Ec) 40 mg PO DAILY@0630 Qty: 1 0RF insulin lispro [Humalog U-100 Insulin] 100 unit/mL Solution See Protocol subcut QIDACHS Qty: 10 0RF Protocol: Insulin Correction Scale Less than or equal to 110 ---- Give (units): 0 111 to 150 Give (units): 0 151 to 200 Give (units): 2 201 to 250 Give (units): 4 251 to 300 Give (units): 6 301 to 350 Give (units): 8 Greater than 350 Give (units): 10 Call if Blood Glucose > : 350 Referrals: Jolene Gallagher MD [Primary Care Provider] - 3 days
[2021-09-30 16:03] VITALS: BP 117/73; PULSE 102; RESP 16; O2SAT 99
[2021-09-30 16:58] LABS: MANUAL DIFF FLAG NO
[2021-09-30 16:59] LABS: Basophils Absolute Auto 0.1 X10*3/uL (0.0-0.2); Basophils Percent Auto 0.7 % (0-2); Eosinophils Absolute Auto 0.1 X10*3/uL (0.0-0.4); Eosinophils Percent Auto 1.3 % (0-4); Hematocrit 28.5 % (42.0-52.0); Hemoglobin 9.8 g/dl (14.0-18.0); Imm Gran Abs Auto 0.03 X10*3/uL (0.00-0.03); Imm Gran Pct Auto 0.4 % (0.0-0.4); Lymphocytes Percent Auto 12.8 % (20-40); Mean Corpuscular HGB Conc 34.4 g/dl (31.0-36.0); Mean Corpuscular Volume 107.5 fL (80.0-98.0); Monocytes Absolute Auto 0.8 X10*3/uL (0.1-1.2); Monocytes Percent Auto 10.9 % (2-11); Neutrophils Absolute Auto 5.6 x10*3/uL (2.0-8.3); Neutrophils Percent Auto 73.9 % (45-73); Red Blood Count 2.65 X10*6/uL (4.60-5.80); Red Cell Distribution Width 13.6 % (11.0-16.0); White Blood Count 7.6 X10*3/uL (4.8-10.8)
[2021-09-30 17:00] LABS: Platelet Count 74 X10*3/uL (160-400)
[2021-09-30 17:06] LABS: MN% 93.2 %; PMN% 6.8 %; RBC Peritoneal Fluid 0.005 X10*6/uL; WBC Peritoneal Fluid 0.383 X10*3/uL
[2021-09-30 17:25] LABS: Alanine Aminotransferase 57 U/L (0-40); Albumin Level 2.4 g/dL (3.5-5.0); Alkaline Phosphatase 303 U/L (39-117); Anion Gap 11 (12-20); Aspartate Amino Transferase 123 U/L (5-37); Bilirubin Total 6.5 mg/dL (0.0-1.0); Blood Urea Nitrogen 9 mg/dL (9-16); Carbon Dioxide 26 mmol/L (22-29); Chloride 98 mmol/L (96-108); Creatinine Clr Calc Pharmacy 184.6; Estimated Glomerular Filt Rate > 60; Glucose Random 244 mg/dL (60-115); Potassium 3.6 mmol/L (3.3-5.1); Sodium 131 mmol/L (135-145)
[2021-09-30 17:49] LABS: BF Shift QC OK YES; Lymphocyte Peritoneal Fl 11 %; Monocytes Peritoneal Fl 46 %; Neutrophils Peritoneal Fluid 4 %; Other Peritioneal Fl 39 %
[2021-09-30 20:32] VITALS: BP 107/74; PULSE 103; RESP 20; O2SAT 100
== END 2021-09-30 20:43 | disposition home or self-care (01) ==
PROVIDERS: Emergency Provider Emergency Medicine; PCP Internal Medicine
DX: K74.60 Unspecified cirrhosis of liver (principal); R18.8 Other ascites; E11.9 Type 2 diabetes mellitus without complications; Z79.899 Other long term (current) drug therapy; Z79.4 Long term (current) use of insulin
CPT/HCPCS: 36415; 80053; 85025; 89051; 99284; 99285

== ENCOUNTER → 2021-10-17 11:17 | Outpatient (BNVA) | payer OTHER, SELFPAY | PROVIDERS: PCP Internal Medicine; Visit Provider Internal Medicine Gastroenterology | DX: R74.8 Abnormal levels of other serum enzymes (principal); K76.9 Liver disease, unspecified; R79.82 Elevated C-reactive protein (CRP); K52.839 Microscopic colitis, unspecified | CPT/HCPCS: 99202 ==

== ENCOUNTER 2021-10-20 23:48 | Emergency (ER) | payer OTHER, SELFPAY ==
[2021-10-21] VITALS (7 sets, daily range): BP systolic 102–117; BP diastolic 57–75; PULSE 103–120; RESP 15–20; TEMP 36.8–36.9; O2SAT 97–100; BMI 30.8
--- NOTE | 2021-10-21 00:12 | ED.ABDPAIN ---
HPI - Abdominal Pain General Chief Complaint: Abdominal Pain Stated Complaint: abdoominal pain Time Seen by Provider: 10/21/21 01:53 Source: patient and EMS Mode of arrival: EMS Limitations: no limitations History of Present Illness HPI narrative: 55-year-old male presents via EMS for abdominal pain and abdominal distention. He has a longstanding history of ETOH abuse with cirrhosis and ascites with encephalopathy. Patient has been sober, lives in a longterm facility, and presents for abdominal distention with shortness of breath. Patient is short of breath because of the fluid buildup in his abdomen. Patient is slightly jaundice per baseline, and is followed by Gastroenterology at this facility. MD elicited complaint: abdominal pain Pertinent past history: other (Cirrhosis, ascites) Onset (ago): year(s) Pain Consistency: constant Location: diffuse Severity: severe Pain scale (0-10): 10 Quality: aching and fullness Radiation: none Migration to: no migration Exacerbating factors: eating, bowel movement and movement Relieving factors: nothing Context: history of similar episodes Associated symptoms: other (Shortness breath) Related Data Home Medications Medication Instructions Recorded Confirmed folic acid 1 mg tablet 1 mg PO DAILY 08/01/21 10/17/21 metformin 500 mg tablet 1,000 mg PO BIDWM 08/01/21 08/01/21 sertraline 25 mg tablet 12.5 mg DAILY 08/01/21 10/17/21 thiamine HCl (vitamin B1) 100 mg 1 tab PO DAILY 08/01/21 10/17/21 tablet ascorbate calcium (vitamin C) 500 1 g PO Q6H 10/17/21 10/17/21 mg tablet bisacodyl 5 mg tablet,delayed 5 mg PO BEDTIME 10/17/21 10/17/21 release furosemide 40 mg tablet 40 mg PO DAILY 10/17/21 10/17/21 lactulose 10 gram/15 mL oral PO 10/17/21 10/17/21 solution lisinopril 5 mg tablet 5 mg PO DAILY 10/17/21 10/17/21 Previous Rx's Medication Instructions Recorded insulin lispro 100 unit/mL See Protocol subcut QIDACHS #10 mL 08/08/21 subcutaneous solution (Humalog U-100 Insulin) magnesium oxide 400 mg (241.3 mg 400 mg PO BID #1 tab 08/08/21 magnesium) tablet omeprazole 40 mg capsule,delayed 40 mg PO DAILY@0630 #1 cap 08/08/21 release spironolactone 100 mg tablet 200 mg PO DAILY #60 tabs 10/17/21 (Aldactone) Allergies Allergy/AdvReac Type Severity Reaction Status Date / Time acetaminophen [From PERCOCET] Allergy Severe AGITATION Verified 10/17/21 11:24 oxycodone [From PERCOCET] Allergy Severe AGITATION Verified 10/17/21 11:24 bee pollen [Bee Stings] Allergy Mild SWELLING Verified 10/17/21 11:24 lorazepam AdvReac Unknown AGITATION Verified 10/17/21 11:24 ativan Allergy Mild unknown Uncoded 10/17/21 11:24 Review of Systems Review of Systems Constitutional: No Fever, No Chills ENT/Mouth: No Ear Pain, No Hoarseness, No sore throat Eyes: No Eye Pain, No Swelling, No Redness, No Foreign Body Cardiovascular: No Chest Pain, No SOB Respiratory: No Cough, No Dyspnea Gastrointestinal: No Nausea, No Vomiting, No Diarrhea, positive abdominal Pain, positive distention Genitourinary: No Dysuria, No Hematuria Musculoskeletal: No joint pain, No Myalgias, No Joint Swelling Skin: Positive jaundice, No Skin lacerations, No rash Neuro: No Weakness, No Numbness, No Paresthesias, No Loss of Consciousness, No Dizziness, No Headache Psych: No Anxiety/Panic, No Depression Heme/Lymph: no easy bruising, no Lymphadenopathy Endocrine: No Polyuria, No Polydipsia Yes all other systems are reviewed and are negative PMFSH Past Medical History Attestation statement: The following information was validated with the patient. Source: old records reviewed Medical History Alcohol abuse Ascites Diabetes Hypertension Liver cirrhosis Withdrawal seizures Social History Social History Alcohol intake: former Patient Tobacco Use Status: Never used Tobacco Use of substances other than those prescribed or required for medical reasons: No Advance Directives: Yes Advance Directives on File: Yes Advance Directives Date on File: 08/13/21 service: Yes Current occupational status: unemployed Physical Exam ED Vital Signs: Vital Signs - 24 hr 10/21/21 00:51 10/21/21 00:55 Temperature 98.2 F 98.2 F Pulse Rate 111 H 111 H Respiratory Rate 20 20 Blood Pressure 112/75 112/75 Pulse Oximetry 100 100 Oxygen Delivery Method Room Air Room Air BMI result Body Mass Index 30.8 Appearance: Alert. Oriented X3. Moderate distress. Eyes: Pupils equal, round and reactive to light. Scleral jaundice ENT: Pharynx normal. Neck: Normal inspection. Neck supple. CVS: Normal heart rate and rhythm. Pulses normal. Respiratory: No respiratory distress. Breath sounds normal. Abdomen: Soft and distended consistent with ascites Skin: Skin warm and dry. Jaundice skin color. Normal skin turgor. Extremities: No lower extremity edema. Moves all extremities against resistance. Neuro: No motor deficit. No sensory deficit. Cranial nerves 2-12 intact. Procedures Paracentesis Indication: Ascites Procedure: therapeutic paracentesis Location: RLQ Local Anesthetic: lidocaine 1% Amount of anesthesia used (mL): 2 Bedside Ultrasound Used: yes, Ascites confirmed and location marked Preparation: sterile prep and drape Amount of fluid obtained (mL): 8,500 Fluid: clear and sent to lab for analysis Size of Needle Used: 7 Post Procedure Exam: awake, alert, normal BP, normal HR and normal SpO2 Patient Tolerated Procedure: well and no complications Course Course Course Narrative: 55-year-old male presents via EMS for abdominal distension, abdominal pain, and shortness of breath. Has history of ascites and has presented multiple times to the emergency department for paracentesis. Will order labs, INR, and perform paracentesis under ultrasound guidance. Patient is afebrile, alert oriented x4, jaundice per baseline. 01:00 INR 1.9. Plan for paracentesis. 03:34 8500 mL of clear yellow aspirate from the abdominal cavity. Albumin ordered by Dr. sanders. . Patient tolerated paracentesis well. Plan of care is to discharge to longterm facility. MDM - Abdominal Pain MDM Narrative Medical decision making narrative: Ascites Differential Diagnosis Differential diagnosis: Likely abdominal pain Medical Records Attestation: I reviewed the patient's medical records. Lab Data Attestation: I reviewed the patient's lab results. Result diagrams: 10/21/21 01:02 10/21/21 01:02 Labs: Lab Results 10/21/21 Range/Units 01:02 WBC 8.5 (4.8-10.8) X10*3/uL RBC 2.48 L (4.60-5.80) X10*6/uL Hgb 9.3 L (14.0-18.0) g/dl Hct 26.2 L (42.0-52.0) % MCV 105.6 H (80.0-98.0) fL MCH 37.5 H (27.0-33.0) pg MCHC 35.5 (31.0-36.0) g/dl RDW 14.7 (11.0-16.0) % Plt Count 81 L (160-400) X10*3/uL MPV 9.8 (9.4-12.4) fL Immature Gran % (Auto) 0.4 (0.0-0.4) % Neut % (Auto) 74.4 H (45-73) % Lymph % (Auto) 12.0 L (20-40) % [place] % (Auto) 11.3 H (2-11) % Eos % (Auto) 1.2 (0-4) % Baso % (Auto) 0.7 (0-2) % Lymph # (Auto) 1.0 L (1.2-4.9) X10*3/uL [place] # (Auto) 1.0 (0.1-1.2) X10*3/uL Eos # (Auto) 0.1 (0.0-0.4) X10*3/uL Baso # (Auto) 0.1 (0.0-0.2) X10*3/uL Abs Immat Gran (auto) 0.03 (0.00-0.03) X10*3/uL Absolute Neuts (auto) 6.3 (2.0-8.3) x10*3/uL Absolute Nucleated RBC 0.000 (0.0-0.012) X10*3/uL Nucleated RBC % (auto) 0.0 (0.0-0.2) /100WBC Discharge Plan Discharge Clinical Impression: Ascites, Status post abdominal paracentesis Patient Disposition: Xfer [facility] Transfer Details: Mario Dempsey Instructions: Ascites (ED), Paracentesis (DC) Additional Instructions: You were evaluated in the emergency department for paracentesis. We drained a 1500 mL of fluid from your abdomen. Continue with all medications of prior prescribed. Follow-up with Gastroenterology as needed. Thank you for choosing this emergency department for evaluation. Please follow-up with primary care physician as needed. Return to the emergency department for any new, concerning, or worsening symptoms. Prescriptions: No Action sertraline 25 mg Tablet 12.5 mg DAILY Hold Instructions: held during hospitalization, can be resumed outpateint if needed folic acid 1 mg Tablet 1 mg PO DAILY metformin 500 mg Tablet 1,000 mg PO BIDWM thiamine HCl (vitamin B1) 100 mg tablet 1 tab PO DAILY magnesium oxide 400 mg (241.3 mg magnesium) Tablet 400 mg PO BID Qty: 1 0RF omeprazole 40 mg Capsule,Delayed Release(Dr/Ec) 40 mg PO DAILY@0630 Qty: 1 0RF insulin lispro [Humalog U-100 Insulin] 100 unit/mL Solution See Protocol subcut QIDACHS Qty: 10 0RF Protocol: Insulin Correction Scale Less than or equal to 110 ---- Give (units): 0 111 to 150 Give (units): 0 151 to 200 Give (units): 2 201 to 250 Give (units): 4 251 to 300 Give (units): 6 301 to 350 Give (units): 8 Greater than 350 Give (units): 10 Call MD if Blood Glucose > : 350 bisacodyl 5 mg tablet,delayed release (DR/EC) 5 mg PO BEDTIME lactulose 10 gram/15 mL solution PO lisinopril 5 mg tablet 5 mg PO DAILY furosemide 40 mg tablet 40 mg PO DAILY ascorbate calcium (vitamin C) 500 mg tablet 1 g PO Q6H spironolactone [Aldactone] 100 mg tablet 200 mg PO DAILY Qty: 60 2RF
--- NOTE | 2021-10-21 01:03 | PC.NURSE ---
Pt. placed on motor installer, labs drawn, awaiting bedside paracentesis
[2021-10-21 01:06] LABS: MANUAL DIFF FLAG NO
[2021-10-21 01:07] LABS: Basophils Absolute Auto 0.1 X10*3/uL (0.0-0.2); Basophils Percent Auto 0.7 % (0-2); Eosinophils Absolute Auto 0.1 X10*3/uL (0.0-0.4); Eosinophils Percent Auto 1.2 % (0-4); Hematocrit 26.2 % (42.0-52.0); Hemoglobin 9.3 g/dl (14.0-18.0); Imm Gran Abs Auto 0.03 X10*3/uL (0.00-0.03); Imm Gran Pct Auto 0.4 % (0.0-0.4); Mean Corpuscular HGB Conc 35.5 g/dl (31.0-36.0); Mean Corpuscular Hemoglobin 37.5 pg (27.0-33.0); Mean Corpuscular Volume 105.6 fL (80.0-98.0); Mean Platelet Volume 9.8 fL (9.4-12.4); Monocytes Percent Auto 11.3 % (2-11); Neutrophils Absolute Auto 6.3 x10*3/uL (2.0-8.3); Neutrophils Percent Auto 74.4 % (45-73); Red Blood Count 2.48 X10*6/uL (4.60-5.80); Red Cell Distribution Width 14.7 % (11.0-16.0); White Blood Count 8.5 X10*3/uL (4.8-10.8)
[2021-10-21 01:09] LABS: Platelet Count 81 X10*3/uL (160-400)
[2021-10-21 01:13] LABS: INTERNATIONAL NORM RATIO 1.9 (0.9-1.1); Prothrombin Time 22.2 SEC (10.0-13.1)
[2021-10-21 01:16] LABS: Partial Thromboplastin Time 35.5 SEC (26.0-36.4)
[2021-10-21] MEDS: Lidocaine HCl 1 % MPF 5 ML VIAL 2 ML SUBCUT (02:00)
--- NOTE | 2021-10-21 02:18 | PC.NURSE ---
Patient alert and oriented x 3. Came to get a parecentesis. Ubaldoy preforming paracentesis.
[2021-10-21 02:56] LABS: Alanine Aminotransferase 44 U/L (0-40); Albumin Level 1.8 g/dL (3.5-5.0); Alkaline Phosphatase 259 U/L (39-117); Anion Gap 11 (12-20); Aspartate Amino Transferase 85 U/L (5-37); Bilirubin Direct 2.7 mg/dL (0.0-0.5); Blood Urea Nitrogen 11 mg/dL (9-16); Calcium 7.8 mg/dL (8.4-10.2); Carbon Dioxide 24 mmol/L (22-29); Chloride 99 mmol/L (96-108); Estimated Glomerular Filt Rate > 60; Glucose Random 250 mg/dL (60-115); Lipase 8 U/L (8-78); Sodium 130 mmol/L (135-145); Total Protein 5.9 g/dL (6.5-8.0)
--- NOTE | 2021-10-21 03:44 | PC.NURSE ---
Call out to [facility] @0339 regarding transport of patient back to [facility]. [facility] will call back with ETA
[2021-10-21] MEDS: Albumin Human 25 % 100 ML IV ×2 (04:02→04:22)
[2021-10-21 04:18] LABS: MN% 85.5 %; PMN% 14.5 %; WBC Peritoneal Fluid 0.139 X10*3/uL
[2021-10-21 04:43] LABS: RBC Peritoneal Fluid < 0.002 X10*6/uL
[2021-10-21 04:44] LABS: BF Shift QC OK YES
[2021-10-21 04:47] LABS: Lymphocyte Peritoneal Fl 29 %
--- NOTE | 2021-10-21 04:48 | PC.NURSE ---
Addendum entered by Jonathon Robertson RN 10/21/21 07:08: IV removed - awaiting discharge / ride from ambulance. Original Note: Received report on patient at approx 0300, paracentesis complete at approx 0330. 8500 ml yellow, clear fluid taken out. Patient tolerated well. Denied pain. 2 doses of albumin given after procedure. Patient eating, lying on side, cooperative with care. RR 20, BP 90's to low 100's systolic. Plan for discharge once albumin complete.
[2021-10-21 04:50] LABS: Monocytes Peritoneal Fl 35 %; Neutrophils Peritoneal Fluid 11 %; Other Peritioneal Fl 25 %
--- NOTE | 2021-10-21 05:31 | PC.NURSE ---
Giovana from [facility] called back @0341 with an update on transport, she could not pass it on to another ambulance company. In conclusion transport is booked for 10am with [facility]
[2021-10-21 06:35] LABS: Albumin Peritoneal Fluid 0.4 GM/DL
== END 2021-10-21 11:04 ==
PROVIDERS: Emergency Medicine; Nurse Practitioner Family; Emergency Provider Internal Medicine
DX: R18.8 Other ascites (principal); K74.60 Unspecified cirrhosis of liver; R06.02 Shortness of breath; F10.10 Alcohol abuse, uncomplicated; E11.9 Type 2 diabetes mellitus without complications; I10 Essential (primary) hypertension; Z79.4 Long term (current) use of insulin; Z79.899 Other long term (current) drug therapy
CPT/HCPCS: 36415; 49083; 80048; 80076; 82042; 83690; 85025; 85610; 85730; 87071; 87073; 87205; 89051; 96365; 96366; 99284; 99285; P9047

== ENCOUNTER 2021-11-04 17:24 | Emergency (ER) | payer OTHER, SELFPAY ==
[2021-11-04 17:40] VITALS: BP 102/62; BP 144/76; PULSE 101; RESP 16; TEMP 36.7; O2SAT 100; O2SAT 99; BMI 32.9
[2021-11-04 17:48] VITALS: BP 110/62; PULSE 76; RESP 16; TEMP 36.7
--- NOTE | 2021-11-04 18:01 | PC.NURSE ---
patient a/o x4 . pearrla , yellowish sclera . lungs clear . skin warm dry , yellow hue . abdomen hard and severely distended . positive bowel sounds noted . patient reports having paresentises 4 -5 weeks ago where there was 2 gallons removed . patient reports current girth at 51 . patient is good historian and aware of plan of care .
--- NOTE | 2021-11-04 18:33 | ED.GENADULT ---
HPI - General Adult General Chief complaint: General Medical Stated complaint: abdominal swelling Time Seen by Provider: 11/04/21 18:17 Source: patient Mode of arrival: EMS Limitations: no limitations History of Present Illness HPI narrative: Patient history of alcoholic cirrhosis with ascites been here multiple times for sciatic lives in [facility] comes here is supposed to get a sciatic tab today as outpatient but got late and came to the ER setting fluid drainage patient feels his abdominal girth has increased usually 52 inches now 57 inches patient feels increased discomfort and shortness of breath patient was seen here on 10/21 and had about 8.5 L acetic fluid drained no fever no chills no significant abdominal pain Related Data Home Medications Medication Instructions Recorded Confirmed folic acid 1 mg tablet 1 mg PO DAILY 08/01/21 10/17/21 metformin 500 mg tablet 1,000 mg PO BIDWM 08/01/21 08/01/21 sertraline 25 mg tablet 12.5 mg DAILY 08/01/21 10/17/21 thiamine HCl (vitamin B1) 100 mg 1 tab PO DAILY 08/01/21 10/17/21 tablet ascorbate calcium (vitamin C) 500 1 g PO Q6H 10/17/21 10/17/21 mg tablet bisacodyl 5 mg tablet,delayed 5 mg PO BEDTIME 10/17/21 10/17/21 release furosemide 40 mg tablet 40 mg PO DAILY 10/17/21 10/17/21 lactulose 10 gram/15 mL oral PO 10/17/21 10/17/21 solution lisinopril 5 mg tablet 5 mg PO DAILY 10/17/21 10/17/21 Previous Rx's Medication Instructions Recorded insulin lispro 100 unit/mL See Protocol subcut QIDACHS #10 mL 08/08/21 subcutaneous solution (Humalog U-100 Insulin) magnesium oxide 400 mg (241.3 mg 400 mg PO BID #1 tab 08/08/21 magnesium) tablet omeprazole 40 mg capsule,delayed 40 mg PO DAILY@0630 #1 cap 08/08/21 release spironolactone 100 mg tablet 200 mg PO DAILY #60 tabs 10/17/21 (Aldactone) Allergies Allergy/AdvReac Type Severity Reaction Status Date / Time acetaminophen [From PERCOCET] Allergy Severe AGITATION Verified 10/17/21 11:24 oxycodone [From PERCOCET] Allergy Severe AGITATION Verified 10/17/21 11:24 bee pollen [Bee Stings] Allergy Mild SWELLING Verified 10/17/21 11:24 lorazepam AdvReac Unknown AGITATION Verified 10/17/21 11:24 ativan Allergy Mild unknown Uncoded 10/17/21 11:24 Review of Systems Review of Systems: Yes all other systems are reviewed and are negative [facility] Past Medical History Medical History Alcohol abuse Ascites Diabetes Hypertension Liver cirrhosis Withdrawal seizures Social History Social History Alcohol intake: former Patient Tobacco Use Status: Never used Tobacco Advance Directives: Yes Advance Directives Information Provided: Yes Advance Directives on File: No Advance Directives Date on File: 08/13/21 service: Yes Current occupational status: unemployed Physical Exam ED Vital Signs: Vital Signs - 24 hr 11/04/21 17:40 11/04/21 17:48 11/04/21 20:29 Temperature 98.1 F 98.1 F Pulse Rate 101 H 76 105 H Respiratory Rate 16 16 18 Blood Pressure 102/62 110/62 109/73 Pulse Oximetry 100 100 Oxygen Delivery Method Room Air Room Air Room Air 11/04/21 20:47 Temperature Pulse Rate 102 H Respiratory Rate 18 Blood Pressure 112/64 Pulse Oximetry 100 Oxygen Delivery Method Room Air BMI result Body Mass Index 32.9 Appearance: Alert. Oriented X3. No acute distress. Eyes: No pallor icterus+ ENT: Pharynx normal. Oral Mucosa moist Neck: Normal inspection. Neck supple. CVS: Normal heart rate and rhythm. Pulses normal. Respiratory: No respiratory distress. Equal air entry bilateral, no wheezing/rales/rhonchi Abdomen: Tense distended abdomen with fluid thrill. Bowel sounds are present, no mass palpable, no CVA tenderness Skin: Skin warm and dry. Normal skin color. Normal skin turgor. Extremities: No lower extremity edema. No calf tenderness Neuro: Oriented X 3. No motor deficit. No sensory deficit.No cerebellar signs , Procedures Paracentesis Time Out Performed: Yes Indication: Ascites Procedure: therapeutic paracentesis Location: RLQ Local Anesthetic: lidocaine 1% Amount of anesthesia used (mL): 1 Bedside Ultrasound Used: no Preparation: sterile prep and drape Amount of fluid obtained (mL): 7,000 Fluid: clear Size of Needle Used: 7 Post Procedure Exam: awake, alert Patient Tolerated Procedure: well Complications: none Medical Decision Making MDM Narrative Medical decision making narrative: Patient with tense ascites with alcoholic cirrhosis 7 L of ascitic fluid drained patient was given albumin will discharge patient intermediate vital status stable patient feels much better ascitic fluid negative for SBP Lab Data Lab results reviewed: Yes I reviewed the patient's lab results. Result diagrams: 11/04/21 18:55 11/04/21 18:55 Labs: Lab Results 11/04/21 11/04/21 11/04/21 Range/Units 18:55 18:55 18:55 WBC 7.8 (4.8-10.8) X10*3/uL RBC 2.76 L (4.60-5.80) X10*6/uL Hgb 10.2 L (14.0-18.0) g/dl Hct 28.9 L (42.0-52.0) % MCV 104.7 H (80.0-98.0) fL MCH 37.0 H (27.0-33.0) pg MCHC 35.3 (31.0-36.0) g/dl RDW 15.0 (11.0-16.0) % Plt Count 87 L (160-400) X10*3/uL MPV 9.8 (9.4-12.4) fL Immature Gran % (Auto) 0.4 (0.0-0.4) % Neut % (Auto) 73.0 (45-73) % Lymph % (Auto) 15.3 L (20-40) % [place] % (Auto) 9.9 (2-11) % Eos % (Auto) 0.6 (0-4) % Baso % (Auto) 0.8 (0-2) % Lymph # (Auto) 1.2 (1.2-4.9) X10*3/uL [place] # (Auto) 0.8 (0.1-1.2) X10*3/uL Eos # (Auto) 0.1 (0.0-0.4) X10*3/uL Baso # (Auto) 0.1 (0.0-0.2) X10*3/uL Abs Immat Gran (auto) 0.03 (0.00-0.03) X10*3/uL Absolute Neuts (auto) 5.7 (2.0-8.3) x10*3/uL Absolute Nucleated RBC 0.000 (0.0-0.012) X10*3/uL Nucleated RBC % (auto) 0.0 (0.0-0.2) /100WBC PT 23.0 H (10.0-13.1) SEC INR 2.0 H (0.9-1.1) Sodium 130 L (135-145) mmol/L Potassium 3.9 (3.3-5.1) mmol/L Chloride 98 (96-108) mmol/L Carbon Dioxide 24 (22-29) mmol/L Anion Gap 12 (12-20) BUN 10 (9-16) mg/dL Creatinine 0.76 (0.5-1.4) mg/dL Estim Creat Clear Calc 119.1 Estimated GFR > 60 Random Glucose 166 H (60-115) mg/dL Calcium 7.8 L (8.4-10.2) mg/dL Total Bilirubin 5.5 H (0.0-1.0) mg/dL AST 50 H D (5-37) U/L ALT 29 (0-40) U/L Alkaline Phosphatase 224 H (39-117) U/L Total Protein 6.3 L (6.5-8.0) g/dL Albumin 2.2 L D (3.5-5.0) g/dL Peritoneal WBC X10*3/uL Peritoneal RBC X10*6/uL Periton Neutrophils % Periton Lymphocytes % Peritoneal Monocytes % Peritoneal Other Cells % 11/04/21 Range/Units 20:49 WBC (4.8-10.8) X10*3/uL RBC (4.60-5.80) X10*6/uL Hgb (14.0-18.0) g/dl Hct (42.0-52.0) % MCV (80.0-98.0) fL MCH (27.0-33.0) pg MCHC (31.0-36.0) g/dl RDW (11.0-16.0) % Plt Count (160-400) X10*3/uL MPV (9.4-12.4) fL Immature Gran % (Auto) (0.0-0.4) % Neut % (Auto) (45-73) % Lymph % (Auto) (20-40) % [place] % (Auto) (2-11) % Eos % (Auto) (0-4) % Baso % (Auto) (0-2) % Lymph # (Auto) (1.2-4.9) X10*3/uL [place] # (Auto) (0.1-1.2) X10*3/uL Eos # (Auto) (0.0-0.4) X10*3/uL Baso # (Auto) (0.0-0.2) X10*3/uL Abs Immat Gran (auto) (0.00-0.03) X10*3/uL Absolute Neuts (auto) (2.0-8.3) x10*3/uL Absolute Nucleated RBC (0.0-0.012) X10*3/uL Nucleated RBC % (auto) (0.0-0.2) /100WBC PT (10.0-13.1) SEC INR (0.9-1.1) Sodium (135-145) mmol/L Potassium (3.3-5.1) mmol/L Chloride (96-108) mmol/L Carbon Dioxide (22-29) mmol/L Anion Gap (12-20) BUN (9-16) mg/dL Creatinine (0.5-1.4) mg/dL Estim Creat Clear Calc Estimated GFR Random Glucose (60-115) mg/dL Calcium (8.4-10.2) mg/dL Total Bilirubin (0.0-1.0) mg/dL AST (5-37) U/L ALT (0-40) U/L Alkaline Phosphatase (39-117) U/L Total Protein (6.5-8.0) g/dL Albumin (3.5-5.0) g/dL Peritoneal WBC 0.165 X10*3/uL Peritoneal RBC < 0.002 X10*6/uL Periton Neutrophils 11 % Periton Lymphocytes 62 % Peritoneal Monocytes 27 % Peritoneal Other Cells 28 % Discharge Plan Discharge Clinical Impression: Abdominal ascites Patient Disposition: Xfer [facility] Transfer Details: To [facility] Instructions: Ascites (ED) Additional Instructions: 7 L of ascitic fluid was drained today follow-up with her PCP for outpatient acetic fluid drainage Prescriptions: No [facility] sertraline 25 mg Tablet 12.5 mg DAILY Hold Instructions: held during hospitalization, can be resumed outpateint if needed folic acid 1 mg Tablet 1 mg PO DAILY metformin 500 mg Tablet 1,000 mg PO BIDWM thiamine HCl (vitamin B1) 100 mg tablet 1 tab PO DAILY magnesium oxide 400 mg (241.3 mg magnesium) Tablet 400 mg PO BID Qty: 1 0RF omeprazole 40 mg Capsule,Delayed Release(Dr/Ec) 40 mg PO DAILY@0630 Qty: 1 0RF insulin lispro [Humalog U-100 Insulin] 100 unit/mL Solution See Protocol subcut QIDACHS Qty: 10 0RF Protocol: Insulin Correction Scale Less than or equal to 110 ---- Give (units): 0 111 to 150 Give (units): 0 151 to 200 Give (units): 2 201 to 250 Give (units): 4 251 to 300 Give (units): 6 301 to 350 Give (units): 8 Greater than 350 Give (units): 10 Call MD if Blood Glucose > : 350 bisacodyl 5 mg tablet,delayed release (DR/EC) 5 mg PO BEDTIME lactulose 10 gram/15 mL solution PO lisinopril 5 mg tablet 5 mg PO DAILY furosemide 40 mg tablet 40 mg PO DAILY ascorbate calcium (vitamin C) 500 mg tablet 1 g PO Q6H spironolactone [Aldactone] 100 mg tablet 200 mg PO DAILY Qty: 60 2RF
[2021-11-04 19:02] LABS: MANUAL DIFF FLAG NO
[2021-11-04 19:06] LABS: Basophils Absolute Auto 0.1 X10*3/uL (0.0-0.2); Basophils Percent Auto 0.8 % (0-2); Eosinophils Absolute Auto 0.1 X10*3/uL (0.0-0.4); Eosinophils Percent Auto 0.6 % (0-4); Hematocrit 28.9 % (42.0-52.0); Hemoglobin 10.2 g/dl (14.0-18.0); Imm Gran Abs Auto 0.03 X10*3/uL (0.00-0.03); Imm Gran Pct Auto 0.4 % (0.0-0.4); Lymphocytes Absolute Auto 1.2 X10*3/uL (1.2-4.9); Lymphocytes Percent Auto 15.3 % (20-40); Mean Corpuscular HGB Conc 35.3 g/dl (31.0-36.0); Mean Corpuscular Volume 104.7 fL (80.0-98.0); Mean Platelet Volume 9.8 fL (9.4-12.4); Monocytes Absolute Auto 0.8 X10*3/uL (0.1-1.2); Monocytes Percent Auto 9.9 % (2-11); Neutrophils Absolute Auto 5.7 x10*3/uL (2.0-8.3); Red Blood Count 2.76 X10*6/uL (4.60-5.80); White Blood Count 7.8 X10*3/uL (4.8-10.8)
[2021-11-04 19:09] LABS: Platelet Count 87 X10*3/uL (160-400)
[2021-11-04 19:25] LABS: Alanine Aminotransferase 29 U/L (0-40); Albumin Level 2.2 g/dL (3.5-5.0); Alkaline Phosphatase 224 U/L (39-117); Anion Gap 12 (12-20); Aspartate Amino Transferase 50 U/L (5-37); Bilirubin Total 5.5 mg/dL (0.0-1.0); Blood Urea Nitrogen 10 mg/dL (9-16); Calcium 7.8 mg/dL (8.4-10.2); Carbon Dioxide 24 mmol/L (22-29); Chloride 98 mmol/L (96-108); Creatinine Clr Calc Pharmacy 119.1; Estimated Glomerular Filt Rate > 60; Glucose Random 166 mg/dL (60-115); Potassium 3.9 mmol/L (3.3-5.1); Sodium 130 mmol/L (135-145); Total Protein 6.3 g/dL (6.5-8.0)
[2021-11-04 20:29] VITALS: BP 109/73; PULSE 105; RESP 18; O2SAT 100
[2021-11-04] MEDS: Lidocaine HCl 1 % MPF 2 ML VIAL INFILTRATI (20:43)
[2021-11-04 20:47] VITALS: BP 112/64; PULSE 102; RESP 18; O2SAT 100
[2021-11-04] MEDS: Albumin Human 25 % 100 ML IV (21:04)
[2021-11-04 21:09] LABS: MN% 88.4 %; PMN% 11.6 %; WBC Peritoneal Fluid 0.165 X10*3/uL
[2021-11-04 21:11] LABS: RBC Peritoneal Fluid < 0.002 X10*6/uL
[2021-11-04 21:40] LABS: BF Shift QC OK YES; Lymphocyte Peritoneal Fl 62 %; Monocytes Peritoneal Fl 27 %; Neutrophils Peritoneal Fluid 11 %; Other Peritioneal Fl 28 %
--- NOTE | 2021-11-04 21:56 | PC.NURSE ---
This US/Pct Called [facility] at 2141 spoke with Kisha,to book a BLS transfer back to [facility] per . Kisha stated there are no trucks available and she will try to pass. At 2146 Kisha from [facility] called and stated [facility] may be able to take patient will call back at 2300. Rn and Flying Instructor aware
--- NOTE | 2021-11-04 23:31 | PC.NURSE ---
Kisha from [facility] Called at [phone] and stated [facility] is unable to take patient. EMS booked for 8AM
[2021-11-04 23:45] VITALS: BP 105/64; PULSE 105; RESP 16; TEMP 36.7; O2SAT 98
[2021-11-05 05:55] VITALS: BP 106/64; PULSE 99; RESP 16; TEMP 36.7; O2SAT 99
--- NOTE | 2021-11-05 07:41 | PC.NURSE ---
pt states he urinated in bed because he wanted to be discharged, gave pt complete linen change, and cleaned pt up for discharge. pt soiled thru his clothes so new pt gown given. gave pt urinal at bedside and educated pt on usinf urinal instead of urinating in stretcher.
== END 2021-11-05 08:06 | disposition skilled nursing facility (03) ==
PROVIDERS: Emergency Provider Internal Medicine
DX: R18.8 Other ascites (principal); Z79.899 Other long term (current) drug therapy
CPT/HCPCS: 36415; 49082; 80053; 85025; 85610; 87071; 87073; 87205; 89051; 96365; 99284; P9047

== ENCOUNTER 2021-11-11 08:39 | Day surgery (SDC) | payer OTHER, SELFPAY ==
--- NOTE | ~2021-11-11 | US_ITS ---
EXAMINATION: US-GUIDED PARACENTESIS WITH IMAGING CLINICAL INFORMATION: Ascites. COMPARISON: None TECHNIQUE: Procedure and risks and benefits including bleeding, infection and low blood pressure were discussed with the patient and informed consent was obtained. The right lower quadrant was prepped and draped in the usual sterile fashion. The skin and soft tissues were anesthetized with 1% lidocaine plain. Using ultrasound guidance and a 5-Mauritian catheter, access to the ascitic fluid was obtained. 6.6 L of clear yellow fluid was removed. No diagnostic specimen was sent. The patient received 50 g of intravenous albumin during the procedure. No diagnostic specimen was sent. FINDINGS: There is a large amount of ascites. US/US paracentesis abd w/image IMPRESSION: Ultrasound-guided paracentesis.
[2021-11-11 08:57] VITALS: BMI 29.0
[2021-11-11 09:10] LABS: Glucose, Whole Blood 208 mg/dL (60-115)
--- NOTE | 2021-11-11 10:28 | HO.RADPN ---
RADIOLOGY Narrative Narrative: RLQ paracentesis performed using 5 fr catheter. L clear yellow fluid removed. No specimen sent. 50g IV albumin given.
[2021-11-11 10:45] VITALS: BP 116/62; PULSE 99; RESP 18; TEMP 36.1; O2SAT 100
[2021-11-11] MEDS: Lidocaine HCl 1 % MPF 5 ML VIAL 4 ML SUBCUT (10:51)
[2021-11-11 11:00] VITALS: BP 118/67; PULSE 98; RESP 16; O2SAT 100
[2021-11-11 11:15] VITALS: BP 128/73; PULSE 98; RESP 16; O2SAT 100
[2021-11-11 11:30] VITALS: BP 112/72; PULSE 101; RESP 16; O2SAT 100
[2021-11-11 11:45] VITALS: BP 117/67; PULSE 100; RESP 16; O2SAT 100
== END 2021-11-11 11:45 | disposition home or self-care (01) ==
PROVIDERS: Radiology Diagnostic Radiology; Visit Provider Radiology Diagnostic Radiology
DX: R18.8 Other ascites (principal); K74.60 Unspecified cirrhosis of liver; F10.10 Alcohol abuse, uncomplicated; G40.509 Epileptic seizures related to external causes, not intractable, without status epilepticus; I10 Essential (primary) hypertension; D69.6 Thrombocytopenia, unspecified; E11.9 Type 2 diabetes mellitus without complications; Z79.4 Long term (current) use of insulin; Z79.899 Other long term (current) drug therapy; Z88.8 Allergy status to other drugs, medicaments and biological substances
CPT/HCPCS: 49083; 82947; P9047

== ENCOUNTER → 2021-11-14 10:02 | Outpatient (BNVA) | payer OTHER, SELFPAY | PROVIDERS: Visit Provider Internal Medicine Gastroenterology | DX: K70.31 Alcoholic cirrhosis of liver with ascites (principal); E11.42 Type 2 diabetes mellitus with diabetic polyneuropathy | CPT/HCPCS: 99212 ==

== ENCOUNTER 2021-12-23 17:12 | Inpatient (IN) | payer MEDICAID, SELFPAY ==
--- NOTE | ~2021-12-23 | CT_ITS ---
EXAMINATION: CT ABDOMEN AND PELVIS WITHOUT CONTRAST CLINICAL INFORMATION: Acute kidney injury. Abdominal pain. Distention. Fluid wave COMPARISON: Ultrasound 08/09/2021 TECHNIQUE: Multidetector volumetric imaging was performed from the superior aspect of the liver through the pubic symphysis. Sagittal and coronal reformatted images were obtained on the technologist's workstation. This CT examination was performed using dose optimization techniques as appropriate, variously including the following: *Automated exposure control *Adjustment of mA and/or kV according to patient size (this includes techniques or standardized protocols for targeted exams where dose is matched to indication/reason for exam; i.e. extremities or head) *Use of iterative reconstruction technique DLP: 578 mGy-cm FINDINGS: LUNG BASES: The visualized lung bases are unremarkable. LIVER, GALLBLADDER, AND BILIARY TREE: The liver is nodular and cirrhotic. No focal lesions are identified and there is no intra or extrahepatic duct dilation. There is dense material within the gallbladder which may relate to sludge. No pericholecystic inflammatory changes are seen. PANCREAS: Unremarkable. SPLEEN: Spleen is at the upper limits of normal for size, otherwise unremarkable. ADRENAL GLANDS: Unremarkable. KIDNEYS AND URETERS: The kidneys are normal in size, shape, and attenuation. At the upper and lower pole of the right kidney there are punctate calcifications which may represent a vascular calcification versus nonobstructing calculi. There is a similar such punctate calcification at the left lower pole as well. No hydronephrosis or hydroureter. No perinephric stranding. BLADDER: Unremarkable. GASTROINTESTINAL TRACT: There are distal gastroesophageal varices. Stomach is normal in caliber. The small and large bowel are nondilated. There is diverticulosis, predominantly right sided. The appendix is not definitively identified. There is mild nonspecific increased attenuation throughout the mesentery. Moderate volume ascites throughout the abdomen. ABDOMINAL WALL: There is a periumbilical hernia containing ascites. LYMPH NODES: There are nonspecific mildly enlarged mesenteric lymph nodes. VASCULAR: Aorta and its branch vessels are normal in caliber. Unremarkable noncontrast appearance of the venous structures. PELVIC VISCERA: The prostate and seminal vesicles are unremarkable. OSSEOUS STRUCTURES: There are bilateral L5 pars defects and grade 1 anterolisthesis of L5 on S1. There is calcified disc osteophyte complexes at L4-L5 and L5-S1 as well. No acute or aggressive bony abnormality is identified. CT/CT abdomen pelvis wo IV con IMPRESSION: There is evidence of cirrhosis and portal hypertension as evidenced by nodular, cirrhotic liver, gastroesophageal varices, and moderate ascites as noted above. There is increased attenuation throughout the mesentery which could relate to portal hypertension and nonspecific mildly prominent mesenteric lymph nodes. Colonic diverticulosis, predominantly right-sided without evidence of diverticulitis. Punctate calcifications at the upper and lower pole of the right kidney as well as at the lower pole the left kidney either represent nonobstructing calculi versus vascular calcifications. The appendix is not definitively visualized. If there are clinical concerns for appendicitis, repeat study with contrast could be performed. Fleischner guidelines were followed.
[2021-12-23 17:26] VITALS: BP 109/70; BP 97/40; PULSE 116; RESP 18; TEMP 36.8; O2SAT 100; O2SAT 98; BMI 32.3
--- NOTE | 2021-12-23 17:28 | ED_ITS ---
HPI - Abdominal Pain General Chief Complaint: Abdominal Pain Stated Complaint: abdominal pain Time Seen by Provider: 12/23/21 17:26 Source: patient Mode of arrival: ambulatory Limitations: no limitations History of Present Illness HPI narrative: This is a 56-year-old male past medical history significant for alcohol abuse, ascites, diabetes, hypertension, liver cirrhosis alcohol withdrawal seizures presenting to the emergency department complaints of abdominal pain, distension X 6-8 weeks however worsening over the past few days. Now vague complaints of SOB, tells me this has happened before has gotten large volume paracentesis done here in ED followed by GI at this facility. Intermittent nausea. Reports his roommate is currently COVID +. Denies fevers, chills chest pain, vomiting, changes in bowel habits, weakness, headache, dizziness. MD elicited complaint: abdominal pain Related Data Home Medications Medication Instructions Recorded Confirmed folic acid 1 mg tablet 1 mg PO DAILY 08/01/21 12/23/21 thiamine HCl (vitamin B1) 100 mg 1 tab PO DAILY 08/01/21 12/23/21 tablet furosemide 40 mg tablet 40 mg PO DAILY 10/17/21 12/23/21 spironolactone 100 mg tablet 200 mg PO DAILY 12/23/21 12/23/21 (Aldactone) Previous Rx's Medication Instructions Recorded magnesium oxide 400 mg (241.3 mg 400 mg PO BID #1 tab 08/08/21 magnesium) tablet Allergies Allergy/AdvReac Type Severity Reaction Status Date / Time acetaminophen [From PERCOCET] Allergy Severe AGITATION Verified 11/14/21 10:09 oxycodone [From PERCOCET] Allergy Severe AGITATION Verified 11/14/21 10:09 bee pollen [Bee Stings] Allergy Mild SWELLING Verified 11/14/21 10:09 lorazepam AdvReac Unknown AGITATION Verified 11/14/21 10:09 ativan Allergy Mild unknown Uncoded 11/14/21 10:09 Review of Systems Review of Systems Constitutional : No Weight loss, No Fever, No Chills, No Fatigue, No Malaise ENT/Mouth : No sore throat, No Rhinorrhea Eyes: No Eye Pain, No Swelling, No Redness Cardiovascular : No Chest Pain, + SOB, No Dyspnea on Exertion, No Orthopnea, No Edema, No Palpitations Respiratory : No Cough, No Sputum, No Wheezing Gastrointestinal : No Nausea, + Vomiting, No Diarrhea, No Constipation, + abdominal Pain, No Hematochezia, No Melena, + abdominal distention Genitourinary : No Dysuria, No Urinary Frequency, No Hematuria, Musculoskeletal : No joint pain, No Myalgias, No Joint Swelling Skin : No Skin Lesions, No rash Neuro : No Weakness, No Numbness, No Dizziness, No Headache Psych : No Anxiety/Panic, No Depression All other systems reviewed and are negative Yes all other systems are reviewed and are negative [facility] Past Medical History Attestation statement: The following information was validated with the patient. Source: old records reviewed and nursing notes reviewed Medical History Alcohol abuse Ascites Diabetes Hypertension Liver cirrhosis Withdrawal seizures Social History Social History Alcohol intake: former Patient Tobacco Use Status: Never used Tobacco Advance Directives: No Advance Directives Information Provided: Yes Advance Directives Date on File: 08/13/21 service: Yes Current occupational status: unemployed Physical Exam ED Vital Signs: Vital Signs - 24 hr 12/23/21 17:26 12/23/21 19:19 12/23/21 22:00 Temperature 98.3 F 98.1 F 98.2 F Pulse Rate 116 H 117 H 113 H Respiratory Rate 18 16 16 Blood Pressure 109/70 113/71 104/53 L Pulse Oximetry 100 98 98 Oxygen Delivery Method Room Air Room Air Room Air BMI result Body Mass Index 32.3 vss Appearance: Alert.? Oriented X3.? No acute distress.? Head: Normocephalic, atraumatic, no step-offs or deformities Eyes: Pupils equal, round and reactive to light.? ENT: Pharynx normal.? Neck: Normal inspection.? Neck supple.? CVS: Normal heart rate and rhythm.? Pulses normal.? Respiratory: No respiratory distress.? Breath sounds normal.? Abdomen: distended, non tender, + fluid wave Skin: Skin warm and dry.? Normal skin color.? Normal skin turgor.?+ jaundice to skin and eyes Extremities: No lower extremity edema.? No calf ttp. 5/5 strength to bilateral upper and lower extremities Back: No midline tenderness, no C-spine tenderness, full range of motion, no CVA tenderness bilaterally Neuro: Oriented X 3.? No motor deficit.? No sensory deficit. CN 2-12 intact Procedures Paracentesis Time Out Performed: Yes Indication: Ascites Procedure: diagnostic paracentesis Location: RLQ Local Anesthetic: lidocaine 1% Amount of anesthesia used (mL): 3 Bedside Ultrasound Used: yes, real-time guidance Preparation: sterile prep and drape Fluid: clear Size of Needle Used: 7 Post Procedure Exam: awake, alert, normal BP, normal HR and normal SpO2 Patient Tolerated Procedure: well Complications: none Course Reevaluation(s) Reevaluation #1: CBC appeard to be at patient's baseline. No acute electrolyte abnormalities, patient has an SAUL BUN/Cr at 51/1.50 patient will be hydrated. PT/INR 29/2.4. Ammonia WNL. Awaiting CT abd/pelvis. Time: 20:32 Reevaluation #2: patient's CT scan with evidence of cirrhosis and portal hypertension. Colonic diverticulosis is noted however no signs of diverticulitis. Calcifications in upper and lower pole the right kidney as well as the lower pole of the left kidney. The appendix is not visualized however no pain with palpation to right lower quadrant or rebound tenderness. Plan at this time is paracentesis. Patient will be admitted to the hospitalist team for evaluation of acute kidney injury, hyponatremia and ascites. Time: 22:37 Reevaluation #3: Verbal consent was obtained, time-out was performed,Dr. Goodman performed abdominal paracentesis under ultrasound guidance with sterile technique, patient tolerated procedure well. Closely monitoring pressures, albumin hung. Fluid will be sent for analysis. Time: 23:11 Additional Reevaluation(s): 5 L removed. Patient VSS. Patient will be admitted to the hospital for further eval and tx of saul, ascites. MDM - Abdominal Pain MDM Narrative Medical decision making narrative: [id number] 56-year-old male presents via EMS for abdominal distension, abdominal pain shortness of breath X6 weeks worsening over the past few days Upon chart review it appears as though patient has required large volume paracentesis in the past. Examination with abdominal distension, consistent with ascites. Patient also jaundice and has a + fluid wave Vital signs stable. Likely ascites secondary to liver cirrhosis. Unlikely infectious in origin or SBP. At this time is to obtain basic labs, INR and likely paracentesis under ultrasound guidance. Medical Records Attestation: I reviewed the patient's medical records. Lab Data Attestation: I reviewed the patient's lab results. Result diagrams: 12/23/21 19:15 12/23/21 19:15 Labs: Lab Results 12/23/21 12/23/21 12/23/21 Range/Units 19:15 19:15 19:15 WBC 9.9 (4.8-10.8) X10*3/uL RBC 3.12 L (4.60-5.80) X10*6/uL Hgb 11.5 L (14.0-18.0) g/dl Hct 32.2 L (42.0-52.0) % MCV 103.2 H (80.0-98.0) fL MCH 36.9 H (27.0-33.0) pg MCHC 35.7 (31.0-36.0) g/dl RDW 15.8 (11.0-16.0) % Plt Count 98 L (160-400) X10*3/uL MPV 9.7 (9.4-12.4) fL Immature Gran % (Auto) 0.7 H (0.0-0.4) % Neut % (Auto) 76.4 H (45-73) % Lymph % (Auto) 9.7 L (20-40) % [place] % (Auto) 10.1 (2-11) % Eos % (Auto) 2.9 (0-4) % Baso % (Auto) 0.2 (0-2) % Lymph # (Auto) 1.0 L (1.2-4.9) X10*3/uL [place] # (Auto) 1.0 (0.1-1.2) X10*3/uL Eos # (Auto) 0.3 (0.0-0.4) X10*3/uL Baso # (Auto) 0.0 (0.0-0.2) X10*3/uL Abs Immat Gran (auto) 0.07 H (0.00-0.03) X10*3/uL Absolute Neuts (auto) 7.6 (2.0-8.3) x10*3/uL Absolute Nucleated RBC 0.000 (0.0-0.012) X10*3/uL Nucleated RBC % (auto) 0.0 (0.0-0.2) /100WBC PT (10.0-13.1) SEC INR (0.9-1.1) Sodium 131 L (135-145) mmol/L Potassium 4.7 D (3.3-5.1) mmol/L Chloride 100 (96-108) mmol/L Carbon Dioxide 18 L (22-29) mmol/L Anion Gap 18 (12-20) BUN 51 H D (9-16) mg/dL Creatinine 1.50 H (0.5-1.4) mg/dL Estim Creat Clear Calc 58.6 Estimated GFR 49 Random Glucose 141 H (60-115) mg/dL Calcium 8.7 D (8.4-10.2) mg/dL Magnesium 2.2 (1.6-2.6) mg/dL Total Bilirubin 6.3 H (0.0-1.0) mg/dL AST 71 H (5-37) U/L ALT 50 H (0-40) U/L Alkaline Phosphatase 190 H (39-117) U/L Ammonia (13-55) umol/L B-Natriuretic Peptide (<100) pg/mL Total Protein 6.9 (6.5-8.0) g/dL Albumin 2.2 L (3.5-5.0) g/dL Lipase 24 (8-78) U/L COVID-19 (JESIKA) Negative (Negative) COVID-19 Clin Com See Note 12/23/21 12/23/21 12/23/21 Range/Units 19:15 19:15 19:15 WBC (4.8-10.8) X10*3/uL RBC (4.60-5.80) X10*6/uL Hgb (14.0-18.0) g/dl Hct (42.0-52.0) % MCV (80.0-98.0) fL MCH (27.0-33.0) pg MCHC (31.0-36.0) g/dl RDW (11.0-16.0) % Plt Count (160-400) X10*3/uL MPV (9.4-12.4) fL Immature Gran % (Auto) (0.0-0.4) % Neut % (Auto) (45-73) % Lymph % (Auto) (20-40) % [place] % (Auto) (2-11) % Eos % (Auto) (0-4) % Baso % (Auto) (0-2) % Lymph # (Auto) (1.2-4.9) X10*3/uL [place] # (Auto) (0.1-1.2) X10*3/uL Eos # (Auto) (0.0-0.4) X10*3/uL Baso # (Auto) (0.0-0.2) X10*3/uL Abs Immat Gran (auto) (0.00-0.03) X10*3/uL Absolute Neuts (auto) (2.0-8.3) x10*3/uL Absolute Nucleated RBC (0.0-0.012) X10*3/uL Nucleated RBC % (auto) (0.0-0.2) /100WBC PT 29.0 H (10.0-13.1) SEC INR 2.4 H (0.9-1.1) Sodium (135-145) mmol/L Potassium (3.3-5.1) mmol/L Chloride (96-108) mmol/L Carbon Dioxide (22-29) mmol/L Anion Gap (12-20) BUN (9-16) mg/dL Creatinine (0.5-1.4) mg/dL Estim Creat Clear Calc Estimated GFR Random Glucose (60-115) mg/dL Calcium (8.4-10.2) mg/dL Magnesium (1.6-2.6) mg/dL Total Bilirubin (0.0-1.0) mg/dL AST (5-37) U/L ALT (0-40) U/L Alkaline Phosphatase (39-117) U/L Ammonia 43 (13-55) umol/L B-Natriuretic Peptide 45 (<100) pg/mL Total Protein (6.5-8.0) g/dL Albumin (3.5-5.0) g/dL Lipase (8-78) U/L COVID-19 (JESIKA) (Negative) COVID-19 Clin Com Critical Care Time Critical Care Time Critical Care Time: Yes Total Critical Care Time: 45 Attestation: I attest to this time spent taking care of the patient, obtaining history, physical, reviewing labs, imaging, speaking to my attending, bedside procedure Discharge Plan Discharge Clinical Impression: Ascites due to alcoholic cirrhosis, SAUL (acute kidney injury), Acute hyponatremia Patient Disposition: Admitted As Inpatient Prescriptions: No [facility] folic acid 1 mg Tablet 1 mg PO DAILY thiamine HCl (vitamin B1) 100 mg tablet 1 tab PO DAILY magnesium oxide 400 mg (241.3 mg magnesium) Tablet 400 mg PO BID Qty: 1 0RF spironolactone [Aldactone] 100 mg tablet 200 mg PO DAILY furosemide 40 mg tablet 40 mg PO DAILY
[2021-12-23] MEDS: ondansetron HCL 4 MG/2 ML VIAL IVPUSH (18:27)
--- OUTSIDE RECORDS SUMMARY | 2021-12-23 18:30 | XMS_ITS | Continuity of Care Document ---
:1965 Author Organization [facility] Address [address] [place] [address]- Care Team Providers Name Role Phone Maren Carvajal MD Primary Care Physician [id number] Date(s): 10/02/21 - 11/01/21 [facility] [address] [place] [address]- [place] Allergies, Adverse Reactions, Alerts Substance Reaction Severity Status Ativan1 Active Contact with hornets, wasps and bees Active 1Patient states that it made him go out of his mind Immunizations Given and Recorded Vaccine Date Status Refusal Reason pneumococcal 23-valent vaccine1 05/26/09 Given Not Given Vaccine Date Status Refusal Reason pneumococcal 23-valent vaccine 11/21/14 Not Given P atient Refuses 1Result Comment: [id number] Medications acetaminophen 325 mg oral tablet 325 mg, 1, tablet, By Mouth, Every 8 hours, PRN, Maintenance, pain, 09/05/21 9:45:00 EDT, ; Start Date: 09/05/21 Status: Orderedfolic acid 1 mg oral tablet 1 mg, 1, tablet, By Mouth, Daily, Refills 0, Maintenance, 09/10/21 12:50:00 EDT, Partial fill upon patient request if the prescription is for a schedule II opioid drug. Start Date: 09/10/21 Status: OrderedGlucaGen 1 mg injection = 1 mg, Intramuscular, Once, PRN low blood sugar, Maintenance, 09/05/21 9:40:00 EDT, ; Start Date: 09/05/21 Status: OrderedGlutose 45 oral gel = 15 Gm, By Mouth, Once, PRN low blood sugar, Maintenance, 09/05/21 9:41:00 EDT, ; Start Date: 09/05/21 Status: OrderedInsulin Lispro 2-10 units, Subcutaneous Injection, 3 times a day before meals, 0 Refills, Maintenance, 09/10/21 11:12:00 EDT, Injection, Partial fill upon patient request if the prescription is for a schedule II opioid drug. Start Date: 09/10/21 Status: Orderedlactulose 10 gm/15 ml oral syrup 45 mL = 30 Gm, By Mouth, 3 times a day, 0 Refills, Maintenance, 09/10/21 12:50:00 EDT, Syrup, Partial fill upon patient request if the prescription is for a schedule II opioid drug. Start Date: 09/10/21 Status: OrderedLasix 40 mg oral tablet 40 mg, 1, tablet, By Mouth, Daily, Refills 0, Maintenance, 09/10/21 12:50:00 EDT, Partial fill upon patient request if the prescription is for a schedule II opioid drug. Start Date: 09/10/21 Status: Orderedmagnesium oxide 400 mg oral tablet 1 tablet = 400 mg, By Mouth, 2 times a day, 0 Refills, Maintenance, 09/10/21 12:50:00 EDT, Tablet, Partial fill upon patient request if the prescription is for a schedule II opioid drug. Start Date: 09/10/21 Status: Orderedmelatonin 3 mg oral tablet 1 tablet = 3 mg, By Mouth, Daily at bedtime, 0 Refills, Maintenance, 08/27/21 12:13:00 EDT, Tablet, ; Start Date: 08/27/21 Status: OrderedMultivit Therapeutic/Minerals Tablet 1 tablet, By Mouth, Daily, 0 Refills, Maintenance, 08/27/21 12:13:00 EDT, Tablet, ; Start Date: 08/27/21 Status: OrderedNarcan 4 mg/0.1 mL nasal spray = 4 mg, Naris, Left, Once, PRN as needed, Maintenance, 09/05/21 9:43:00 EDT, ; Start Date: 09/05/21 Status: OrderedrifAXIMin 550 mg oral tablet 1 tablet = 550 mg, By Mouth, 2 times a day, 0 Refills, Maintenance, 09/10/21 12:51:00 EDT, Tablet, Partial fill upon patient request if the prescription is for a schedule II opioid drug. Start Date: 09/10/21 Status: Orderedspironolactone 100 mg oral tablet 100 mg, 1, tablet, By Mouth, Daily, Refills 0, Maintenance, 09/10/21 12:51:00 EDT, Partial fill uponpatient request if the prescription is for a schedule II opioid drug. Start Date: 09/10/21 Status: Orderedthiamine 100 mg oral tablet 100 mg, 1, tablet, By Mouth, Daily, Refills 0, Maintenance, 09/10/21 12:51:00 EDT, Partial fill uponpatient request if the prescription is for a schedule II opioid drug. Start Date: 09/10/21 Status: Orderedwalker with wheels walker with wheels, See Instructions, # 1 each, Refills 0, Tot. Refills 0, Maintenance, Dx: [id number]. 1- ICD code, 08/27/21 12:20:00 EDT, Supply Start Date: 08/27/21 Status: Ordered Problem List Condition Effective Dates Status Health Status Informant Obese class I(Confirmed) Active
--- OUTSIDE RECORDS SUMMARY | 2021-12-23 18:30 | XMS_ITS | Continuity of Care Document ---
:1965 Author Organization [facility] Address [address] [place] [address]- Care Team Providers Name Role Phone Maren Carvajal MD Primary Care Physician Encounter [facility] [place] Date(s): 09/05/21 - 09/10/[address] [address] Discharge Disposition: A-Transfer SNF Attending Physician: Kelvin Robles MD Admitting Physician: Sangeetha Sam MD Referring Physician: Not on Staff, Referring MD Allergies, Adverse Reactions, Alerts Substance Reaction Severity Status Ativan1 Active Contact with hornets, wasps and bees Active 1Patient states that it made him go out of his mind Immunizations Given and Recorded Vaccine Date Status Refusal Reason pneumococcal 23-valent vaccine1 05/26/09 Given Not Given Vaccine Date Status Refusal Reason pneumococcal 23-valent vaccine 11/21/14 Not Given P atient Refuses 1Result Comment: [id number] Medications acetaminophen 325 mg oral tablet 325 [...] Refills 0, Tot. Refills 0, Maintenance, Dx: [id number]. 1- ICD code, 08/27/21 12:20:00 EDT, Supply Start Date: 08/27/21 Status: Ordered Problem List Condition Effective Dates Status Health Status Informant Obese class I(Confirmed) Active Results Orders for Microbiology Reports Name Date Sterile Body Fluid Culture W/ Gram Smear 09/08/21 Anaerobic Culture 09/08/21 Anaerobic Culture (ANAEROBIC CULTURE) 09/05/21 Blood Culture 09/04/21 Blood Culture #2 09/04/21 Sterile Body Fluid Culture W/ Gram Smear 09/04/21 Microbiology Reports TEST:Anaerobic Culture STATUS:Unauthenticated BODY SITE: SOURCE:BODY F COLLECTED DATE/TIME:09/08/21 8:25 AMAnaerobic Culture SPECIMEN DESCRIPTION : BODY FLUID PERITONEUM SPECIAL REQUESTS : NONE CULTURE : NO ANAEROBES ISOLATED SO FAR. REPORT STATUS : PRELIMINARY REPORT TEST:Sterile Fluid Culture STATUS:Auth (Verified) BODY SITE: SOURCE:ASCITI COLLECTED DATE/TIME:09/08/21 8:25 AMSterile Fluid Culture SPECIMEN DESCRIPTION : ASCITIC FLUID SPECIAL REQUESTS : NONE GRAM STAIN : 1+ POLYMORPHONUCLEAR LEUKOCYTES NO ORGANISMS SEEN CULTURE : NO GROWTH 2 DAYS REPORT STATUS : FINAL 09/10/2021TEST:Anaerobic Culture STATUS:Auth (Verified) BODY SITE: SOURCE:Perito COLLECTED DATE/TIME:09/05/21 12:28 AMAnaerobic Culture SPECIMEN DESCRIPTION : Peritoneal fluid SPECIAL REQUESTS : NONE CULTURE : NO ANAEROBES ISOLATED REPORT STATUS : FINAL 09/10/2021TEST:Sterile Fluid Culture STATUS:Auth (Verified) BODY SITE: SOURCE:Perito COLLECTED DATE/TIME:09/05/21 12:28 AMSterile Fluid Culture SPECIMEN DESCRIPTION : Peritoneal fluid SPECIAL REQUESTS : NONE GRAM STAIN : 1+ WHITE BLOOD CELLS NO ORGANISMS SEEN CULTURE : NO GROWTH 2 DAYS REPORT STATUS : FINAL 09/07/2021TEST:Blood Culture STATUS:Auth (Verified) BODY SITE: SOURCE:Blood COLLECTED DATE/TIME:09/04/21 10:58 PMBlood Culture SPECIMEN DESCRIPTION : BLOOD NO SITE SPECIAL REQUESTS : NONE CULTURE : NO GROWTH 5 DAYS. REPORT STATUS : FINAL 09/10/2021TEST:Blood Culture, Second Order STATUS:Auth (Verified) BODY SITE: SOURCE:Blood COLLECTED DATE/TIME:09/04/21 10:58 PMBlood Culture, Second Order SPECIMEN DESCRIPTION : BLOOD NO SITE SPECIAL REQUESTS : NONE CULTURE : NO GROWTH 5 DAYS. REPORT STATUS : FINAL 09/10/2021 Vital Signs Most recent to oldest 1 2 3 [Reference Range]: Oxygen Saturation [94-100 %] 100 % 100 % 99 % (09/10/21 7:00 AM) (09/09/21 8:00 PM) (09/09/21 3:0 0 PM) Pulse Rate [55-90 bpm] 103 bpm 117 bpm 108 bpm *H* *H* *H* (09/10/21 7:00 AM) (09/09/21 8:00 PM) (09/09/21 3:0 0 PM) Blood Pressure [90-138/55-84 mm 101/63 mm Hg 108/66 mm Hg 110/51 mm Hg Hg] (09/10/21 7:00 AM) (09/09/21 8:00 PM) (09/09/21 3:0 0 PM) Respiratory Rate [16-30 br/min] 18 br/min 18 br/min 18 br/min (09/10/21 7:00 AM) (09/09/21 8:00 PM) (09/09/21 3:0 0 PM) Temperature [96.8-100.4 DegF] 98 DegF 98.0 DegF 97 .8 DegF (09/10/21 7:00 AM) (09/09/21 8:00 PM) (09/09/21 3:0 0 PM) Mode of Delivery (Oxygen) Room air Room air Room a ir (09/10/21 7:00 AM) (09/09/21 8:00 PM) (09/09/21 3:0 0 PM) Blood pressure sites Arm, left Arm, left Arm, left (09/10/21 7:00 AM) (09/09/21 8:00 PM) (09/09/21 3:0 0 PM) Temperature Route Oral Oral Oral (09/10/21 7:00 AM) (09/09/21 8:00 PM) (09/09/21 3:0 0 PM)
--- OUTSIDE RECORDS SUMMARY | 2021-12-23 18:30 | XMS_ITS | Continuity of Care Document ---
:1965 Author Organization [facility] Address [address] [place] [phone]- Care Team Providers Name Role Phone Maren Carvajal MD Primary Care Physician Encounter [facility] [place] Date(s): 08/17/21 - 08/27/[address] [address] Encounter Diagnosis Altered mental status (Final) - 08/17/21 Altered mental status (Final) - 08/17/21 Discharge Disposition: A-Transfer SNF Attending Physician: Rosemary Marcus MD Admitting Physician: Kelly Rosado MD Referring Physician: Not on Staff, Referring [...] Given P atient Refuses 1Result Comment: [id number] Medications Folic Acid = 1 mg, By Mouth, Daily, 0 Refills, Maintenance, 11/20/14 13:00:34 Start Date: 11/20/14 Status: Orderedlactulose 10 gm/15 ml oral syrup 45 mL = 30 Gm, By Mouth, 3 times a day, hold for > 3 bowel movements, 0 Refills, Maintenance, 08/27/21 12:12:00 EDT, Syrup, Partial fill upon patient request if the prescription is for a schedule IIopioid drug. Start Date: 08/27/21 Status: OrderedLasix 40 mg oral tablet 40 mg, 1, tablet, By Mouth, Daily, Refills 0, Maintenance, 08/27/21 12:12:00 EDT, Partial fill upon patient request if the prescription is for a schedule II opioid drug. Start Date: 08/27/21 Status: Orderedmagnesium oxide 400 mg oral tablet = 400 mg, By Mouth, Daily, # 30 tablet, 0 Refills, Maintenance, 11/28/14 14:20:20, Tablet Start Date: 11/28/14 Stop Date: 12/28/14 Status: Orderedmelatonin 3 mg oral tablet By Mouth, Daily at bedtime, 0 Refills, Maintenance, 08/27/21 12:13:00 EDT, Tablet, Partial fill uponpatient request if the prescription is for a schedule II opioid drug. Start Date: 08/27/21 Status: OrderedMultivit Therapeutic/Minerals Tablet 1 tablet, By Mouth, Daily, 0 Refills, Maintenance, 08/27/21 12:13:00 EDT, Tablet, Partial fill upon patient request if the prescription is for a schedule II opioid drug. Start Date: 08/27/21 Status: Orderedmultivitamin Multiple Vitamins oral tablet 1 tablet, By Mouth, Daily, # 30 tablet, 2 Refills, Maintenance, Tablet Start Date: 10/04/12 Status: OrderedNystatin Powder 1 applicator, Topically, 2 times a day, PRN Rash, 0 Refills, Maintenance, Powder Start Date: 08/27/21 Status: Orderedomeprazole 40 mg oral enteric coated capsule 1 capsule = 40 mg, By Mouth, Daily, # 30 capsule, 0 Refills, Maintenance, 08/17/21 19:57:00 EDT, EC Capsule, Partial fill upon patient request if the prescription is for a schedule II opioid drug. Start Date: 08/17/21 Status: OrderedrifAXIMin 550 mg oral tablet 1 tablet = 550 mg, By Mouth, 2 times a day, 0 Refills, Maintenance, 08/27/21 12:13:00 EDT, Tablet, Partial fill upon patient request if the prescription is for a schedule II opioid drug. Start Date: 08/27/21 Status: Orderedspironolactone 100 mg oral tablet 100 mg, 1, tablet, By Mouth, Daily, Refills 0, Maintenance, 08/27/21 12:12:00 EDT, Partial fill uponpatient request if the prescription is for a schedule II opioid drug. Start Date: 08/27/21 Status: Orderedthiamine 100 mg oral tablet = 100 mg, By Mouth, Daily, 0 Refills, Maintenance, 11/28/14 14:20:48 EDT, Tablet Start Date: 11/28/14 Status: OrderedTylenol 325 mg oral tablet 325 mg, 1, tablet, By Mouth, Every 8 hours, PRN, Refills 0, Maintenance, Pain , Moderate, 08/27/21 12:13:00 EDT, Partial fill upon patient request if the prescription is for a schedule II opioid drug. Start Date: 08/27/21 Status: Orderedwalker with wheels walker with wheels, See Instructions, # 1 each, Refills 0, Tot. Refills 0, Maintenance, Dx: [id number]. 1- ICD code, 08/27/21 12:20:00 EDT, Supply Start Date: 08/27/21 Status: Ordered Problem List Condition Effective Dates Status Health Status Informant Obese class I(Confirmed) Active Results Orders for Microbiology Reports Name Date Sterile Body Fluid Culture W/ Gram Smear 08/25/21 Fungal Culture, Nonrespiratory 08/25/21 Anaerobic Culture 08/25/21 AFB Culture w/ AFB Smear, Nonrespiratory 08/25/21 Sterile Body Fluid Culture W/ Gram Smear 08/17/21 Anaerobic Culture (ANAEROBIC CULTURE) 08/17/21 Urine Culture (URINE CULTURE) 08/17/21 Blood Culture 08/17/21 Blood Culture #2 08/17/21 Microbiology Reports TEST:Anaerobic Culture STATUS:Unauthenticated BODY SITE: SOURCE:BODY F COLLECTED DATE/TIME:08/25/21 9:15 AMAnaerobic Culture SPECIMEN DESCRIPTION : BODY FLUID PERITONEUM SPECIAL REQUESTS : NONE CULTURE : NO ANAEROBES ISOLATED SO FAR. REPORT STATUS : PRELIMINARY REPORT TEST:Sterile Fluid Culture STATUS:Auth (Verified) BODY SITE: SOURCE:ASCITI COLLECTED DATE/TIME:08/25/21 9:15 AMSterile Fluid Culture SPECIMEN DESCRIPTION : ASCITIC FLUID SPECIAL REQUESTS : NONE GRAM STAIN : NO CELLS OR ORGANISMS SEEN CULTURE : NO GROWTH 2 DAYS REPORT STATUS : FINAL 08/27/2021TEST:Fungal Culture, Non-Respiratory STATUS:Unauthenticated BODY SITE: SOURCE:BODY F COLLECTED DATE/TIME:08/25/21 9:15 AMFungal Culture, Non-Respiratory SPECIMEN DESCRIPTION : BODY FLUID PERITONEUM SPECIAL REQUESTS : NONE DIRECT EXAM : NO FUNGAL ELEMENTS OBSERVED REPORT STATUS : PRELIMINARY REPORT TEST:AFB Culture w/AFB Smear, Non-Respiratory STATUS:Unauthenticated BODY SITE: SOURCE:BODY F COLLECTED DATE/TIME:08/25/21 9:15 AMAFB Culture w/AFB Smear, Non-Respiratory SPECIMEN DESCRIPTION : BODY FLUID PERITONEUM SPECIAL REQUESTS : NONE DIRECT EXAM : NO ACID FAST BACILLI SEEN ON DIRECT SMEAR, TEST PERFORMED AT [facility] CULTURE : SPECIMEN SENT TO [facility], [place], [place] REPORT STATUS : PRELIMINARY REPORT TEST:Anaerobic Culture STATUS:Auth (Verified) BODY SITE: SOURCE:PARACE COLLECTED DATE/TIME:08/17/21 3:03 PMAnaerobic Culture SPECIMEN DESCRIPTION : PARACENTESIS FLUID SPECIAL REQUESTS : NONE CULTURE : NO ANAEROBES ISOLATED REPORT STATUS : FINAL 08/22/2021TEST:Sterile Fluid Culture STATUS:Auth (Verified) BODY SITE: SOURCE:ABDOMI COLLECTED DATE/TIME:08/17/21 3:03 PMSterile Fluid Culture SPECIMEN DESCRIPTION : ABDOMINAL FLUID SPECIAL REQUESTS : NONE GRAM STAIN : 1+ RBC'S NO ORGANISMS SEEN CULTURE : NO GROWTH 2 DAYS REPORT STATUS : FINAL 08/19/2021TEST:Urine Culture STATUS:Auth (Verified) BODY SITE: SOURCE:URINE COLLECTED DATE/TIME:08/17/21 1:38 PMUrine Culture SPECIMEN DESCRIPTION : URINE SPECIAL REQUESTS : NONE Reflexed from [id number] CULTURE : NO GROWTH REPORT STATUS : FINAL 08/19/2021TEST:Blood Culture, Second Order STATUS:Auth (Verified) BODY SITE: SOURCE:Blood COLLECTED DATE/TIME:08/17/21 1:28 PMBlood Culture, Second Order SPECIMEN DESCRIPTION : BLOOD R HAND SPECIAL REQUESTS : NONE CULTURE : NO GROWTH 5 DAYS. REPORT STATUS : FINAL 08/22/2021TEST:Blood Culture STATUS:Auth (Verified) BODY SITE: SOURCE:Blood COLLECTED DATE/TIME:08/17/21 1:02 PMBlood Culture SPECIMEN DESCRIPTION : BLOOD LAC SPECIAL REQUESTS : NONE CULTURE : NO GROWTH 5 DAYS. REPORT STATUS : FINAL 2Radiology Reports Exam Date Time Procedure Performing Provider Status 08/18/21 12:40 AM Chest Portable Mcdonald , Russell; Auth (Verified) Notes:(Chest Portable) Reason For Exam: Line PlacementRESULT: Chest Portable AP supine portable chest dated August 18, 2021 at 0022 hours. Comparison films are from August 17, 2021. HISTORY: Line placement. FINDINGS: The cardiac silhouette is within normal limits for size. A central venous line is noted onthe right. Using a jugular approach, the tip of the catheter overlies the distal SVC. No pneumothorax is appreciated. Some minimal vascular crowding is demonstrated. This is likely the result of the expiratory nature of the film. Minimal opacity is noted lung bases right greater than left likely atelectasis. No pleural effusion is appreciated. Degenerative changes are noted in the spine and shoulders. IMPRESSION: New central venous line in place. Expiratory chest x-ray showing that is likely some minimal bibasilar atelectasis right greater than left. Examination [id number]. Thank you for allowing me to participate in the care of this patient. WSN: [id number] Ordering Physician: Nisa Abel Dictated By: Alan Meyers MD Dictated Date/Time: 08/18/21 8:11 am Reviewed By: Alan Meyers MD Signed By: Alan Meyers MD Signed Date/Time: 08/18/21 8:11 am Transcribed By: THAI Transcribed Date/Time: 08/18/21 8:11 am Exam Date Time Procedure Performing Provider Status 08/18/21 3:40 AM Chest Portable Charmaine Perdomo (Verified) Notes:(Chest Portable) Reason For Exam: Tube PlacementRESULT: Chest Portable AP semiupright portable chest dated August 18, 2021 0327 hours. Comparison films are from August 18, 2021. HISTORY: Tube placement. FINDINGS: The cardiac silhouette is within normal limits for size. A nasogastric tube extends off the film in the left upper quadrant. The sidehole and tip are distal to the EG junction region. A central venous line is noted from the right. Using a jugular approach, the tip of the catheter overlies the distal SVC. No pneumothorax is appreciated. No airspace infiltrate or pleural effusion is identified. Degenerative changes are noted in the spine and right shoulder. IMPRESSION: Nasogastric tube and central venous line in place. There is no evidence of acute pulmonary disease. Examination [id number]. Thank you for allowing me to participate in the care of this patient. WSN: [id number] Ordering Physician: Magi Campbell Dictated By: Alan Meyers MD Dictated Date/Time: 08/18/21 7:46 am Reviewed By: Alan Meyers MD Signed By: Alan Meyers MD Signed Date/Time: 08/18/21 7:46 am Transcribed By: THAI Transcribed Date/Time: 08/18/21 7:46 am Exam Date Time Procedure Performing Provider Status 08/17/21 1:56 PM Chest Portable Peter , Ekaterina; Auth (Verified) Notes:(Chest Portable) Reason For Exam: Shortness of BreathRESULT: Chest Portable Examination: Portable chest performed on 08/17/2021. History: Shortness of breath. Findings: A frontal view of the chest is submitted without comparison. The cardiac and mediastinal silhouettes are within normal limits. Low lung volumes are present with bibasilar atelectasis. The lungs are otherwise clear. The osseous structures are unremarkable. IMPRESSION: Minimal bibasilar atelectasis. WSN: [id number] Ordering Physician: Korina Vieira Dictated By: Ellen Anthony MD Dictated Date/Time: 08/17/21 2:03 pm Reviewed By: Ellen Anthony MD Signed By: Ellen Anthony MD Signed Date/Time: 08/17/21 2:03 pm Transcribed By: THAI Transcribed Date/Time: 08/17/21 2:02 pm Vital Signs Most recent to oldest 1 2 3 [Reference Range]: Height 170 cm 170 cm 170 cm (08/27/21 7:43 AM) (08/26/21 3:55 PM) (08/26/21 8:00 A M) Weight 87.4 kg 96.7 kg 94 kg (08/26/21 5:32 AM) (08/24/21 3:20 AM) (08/22/21 5:46 A M) Oxygen Saturation [94-100 %] 96 % 95 % 95 % (08/27/21 1:00 PM) (08/27/21 7:43 AM) (08/26/21 11:00 PM) Pulse Rate [55-90 bpm] 94 bpm 101 bpm 107 bpm *H* *H* *H* (08/27/21 1:00 PM) (08/27/21 7:43 AM) (08/26/21 11:00 PM) Body Mass Index [18.5-24.99] 32.66 30.9 *>HHI* *>HHI* (08/21/21 5:30 PM) (08/17/21 8:20 PM) Blood Pressure [90-138/55-84 mm 111/68 mm Hg 118/63 mm Hg 107/61 mm Hg Hg] (08/27/21 1:00 PM) (08/27/21 7:43 AM) (08/26/21 11:00 PM) Respiratory Rate [16-30 br/min] 18 br/min 18 br/min 22 br/min (08/27/21 1:00 PM) (08/27/21 7:43 AM) (08/26/21 11:00 PM) Temperature [96.8-100.4 DegF] 98.0 DegF 98.0 DegF 98 .3 DegF (08/27/21 1:00 PM) (08/27/21 7:43 AM) (08/26/21 11:00 PM) Liters per Minute 1 L/min 1 L/min 2 L/min (08/21/21 4:00 PM) (08/21/21 3:00 PM) (08/21/21 2:24 P M) Mode of Delivery (Oxygen) Room air Room air Room a ir (08/27/21 1:00 PM) (08/27/21 7:43 AM) (08/26/21 11:00 PM) Blood pressure sites Arm, right Arm, right Arm, left (08/27/21 1:00 PM) (08/27/21 7:43 AM) (08/26/21 11:00 PM) Temperature Route Oral Oral Oral (08/27/21 1:00 PM) (08/27/21 7:43 AM) (08/26/21 11:00 PM) Dry Weight 89.3 kg (08/17/21 8:20 PM) Weight Obtained Via Bed scale Bed scale Bed scale (08/26/21 5:32 AM) (08/24/21 3:20 AM) (08/22/21 5:46 A M) Dry Weight Obtained Via Bed scale (08/17/21 8:20 PM)
--- OUTSIDE RECORDS SUMMARY | 2021-12-23 18:31 | XMS_ITS | Continuity of Care Document ---
:1965 Author Organization [facility] Care Team Providers Name Role Phone [facility] Unavailable Unavailable Problems Combined list of problems from Department of Defense and Veterans Affairs facilities. It does not include entries that were removed or entered in error. Problem Status Onset Problem Date of Comments Source Date Type Resolution Alcohol dependence Active Condition Jan 28 [place] CNTRL (SNOMED [place] [id number]) 2019 Ente red WSTRN By: DONALD MONTIEL [facility] Comment: In early remission Alcohol dependence Active Condition W EST [place] syndrome Borderline diabeties Active Condition [facility] [place] [facility] Chronic Low Back Pain Active Condition [facility] [place] [facility] Counseling on Active Condition [facility] CNT [facility] Substance Use and WS TRN Abuse (ICD-9-CM [place] V65.42) HCS Depressive disorder Active Condition [facility] Diabetes Active Condition [facility] [place] [facility] Diabetes Mellitus Type Active Condition May 17, [place] 2 (SCT [id number]) 2019 Entered By: DIALLO PARKER EN R Comment: per [facility] Family History of Active Condition [facility] other Cardiovascular [facility] Diseases [place] [facility] Fatty liver Active Condition May 17 [facility] 2019 Entered By: DIALLO PARKER EN R Comment: per [facility] Fatty Liver, Alcoholic Active Condition [facility] [place] [facility] Gout Active Condition [facility] [place] [facility] Gout (SCT [id number]) Active Condition May 17 [place] 2019 Entered By: DIALLO PARKER EN R Comment: per [facility] Hypertension Active Condition [facility] Hypertriglyceridemia Active Condition Oct 05 [place] [facility] 2000 Entered WSTRN By: NAGI SOLER HCS ED JAWED Comment: started on gemfibrozil Mild depression Active Condition [facility] [place] [facility] NON VA PCP Active Condition Nov 17 [facility] 2015 Entered WSTRN By: TERRY COYNE [facility] J Comment: Dr. [facility] Paulette MARIE OBESITY, UNSP Active Condition [facility] [place] [facility] Onychomycosis of Active Condition [facility] toenails [facility] [place] [facility] Thiamine Deficiency Active Condition [facility] [place] [facility] Carpal Tunnel Syndrome Inactive Condition 12/04/2004 [facility] [place] [facility] Tachycardia Inactive Condition 12/04/2004 Oct 05, [place] CNT [facility] 2000 Entered WSTRN By: NAGI SOLER [facility] ED JAWED Comment: secondry to tobacco chewing Oct 05, 2000 Entered By: NAGI PRETTY ED JAWED Comment: on atenalol 25mg Tobacco Use Disorder, Inactive Condition 12/04/2004 [facility] Remission [place] [facility] Diagnosis: ICD-10-CM Active Diagnosis [facility] Z71.89 Other specified WSTRN counselingwith [facility] Provider Comments: H LEO Other specified counseling Medications Combined list of outpatient medications from Department of Defense and Veterans Affairs facilities. Medications provided include 1) outpatient medications from the last 15 months, and 2) patient-reported medications. Medication Details Route Status Patient Prescription Prescription Last Ordering Order Source Instructions Expires Number Dispense Provider Date Date FOLIC ACID TAKE ONE ORAL ACTIVE LUIS CHASE 1MG TAB TABLET EL J 2016 IELD BY MOUTH DAILY LISINOPRIL TAKE ONE ORAL ACTIVE LUIS CHASE 10MG TAB TABLET EL J 2016 IELD BY MOUTH DAILY MELATONIN TAKE ONE ORAL ACTIVE 02/05/2022 [id number] PHIL RUGGIERO 5MG CAP/TAB CAPSULE/ 2 A A 2020 IELD TABLET BY MOUTH AT BEDTIME METFORMIN TAKE ONE ORAL ACTIVE CHASELUIS Osborne PRINGF HCL 500MG TABLET EL J 2016 IELD TAB BY MOUTH TWICE DAILY BEFORE A MEAL MULTIVITAMI TAKE ONE ORAL ACTIVE JUDITHGNMADHU 03/09/ NS TABLET LAWANDA 2004 CNTRL W/MINERALS BY MOUTH F WSTRN TAB EVERY [facility] PHENOBARBIT TAKE ORAL ACTIVE CHASELUIS RINGF AL TAB 30MG BY EL J 2015 IELD MOUTH TWICE DAILY SILDENAFIL TAKE ONE ORAL ACTIVE 04/25/2022 [id number] Reggie RUSSELL NNM springF CITRATE TABLET 2 2021 IELD 100MG TAB BY MOUTH ONCE DAILY NEEDED TAKE 1 HOUR PRIOR TO SEXUAL ACTIVITY THIAMINE TAKE ONE ORAL ACTIVE LUIS CHASE RINGF 100MG TAB TABLET EL J 2015 IELD BY MOUTH DAILY Allergies, Adverse Reactions, Alerts Combined list of allergies from Department of Defense and Veterans Affairs facilities. It does not include entries that were removed or entered in error. Substance Category Reaction Severity Reaction Status Date Comments S ource type Reported ATIVAN Propensity Propensity active [place] to adverse to adverse 9 [facility] reactions reactions to drug to drug (finding) (finding) BEE VENOM Propensity Urticaria Propensity active [place] to adverse to adverse 0 [facility] S [facility] reaction reaction (finding) (finding) PERCOCET Propensity Propensity active [place] to adverse to adverse 9 [facility] reactions reactions to drug to drug (finding) (finding) Immunizations Combined list of available immunizations from the Department of Defense and Veterans Affairs facilities. 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 WSTRN PRESERVATIVE Adminis te [place] FREE red by: [facility] AVELINO BRONSON (GXC=[phone]). Partner 8 Lot#: [id number] Mfr: GlaxoSmit hKline; Dosage: 0.5 PNEUMOCOCCAL complet [facility] POLYSACCHARID 2018 ed CNTRL E PPV23 [facility] [place] [facility] INFLUENZA, complet Site: [facility], 2017 ed Left CNTR L INJECTABLE Deltoid [facility] [place] [facility] FLU,3 YRS complet Site: Michael [place] (HISTORICAL) 2016 ed Left I ELD Deltoid TDAP complet Site: [facility] LUIS 2016 ed Right IELD Deltoid FLU,3 YRS complet Site: [facility] [place] (HISTORICAL) 2015 ed Left I ELD Deltoid HEP B, ADULT 3 complet [facility] 2016 ed [facility] [place] [facility] HEP B, ADULT 2 complet [facility] 2008 ed [facility] [place] [facility] HEP B, ADULT 1 complet [facility] 2007 ed [facility]L [facility] [place] [facility] FLU,3 YRS 03/09/ BANARTURO NESBITTAR 88 complet VA (HISTORICAL) 2004 ET M ed C NTRL [facility] [place] [facility] FLU,3 YRS 12/29/ DEXCYNTH 88 complet [facility] (HISTORICAL) 2002 IA T ed C NTRL [facility] [place] [facility] FLU,3 YRS 01/10/ PATRICIA,KATHRY 88 complet VA (HISTORICAL) 1998 N D ed C N[facility]L [facility] [place] [facility] TD(ADULT) 01/10/ PATRICIA,KATHRY 139 complet [facility] UNSPECIFIED 1998 N D ed CN TRL FORMULATION [facility] [place] [facility] Encounters Combined list of: 1) Encounters from Department of Veterans Affairs facilities going back up to the last 18 months. 2) Encounters from the Department of Defense facilities going back up to 280 months. Location Location Encounter Encounter Reason Attending ADM DC Stat us Disposition Source Details Type Number For Provider Date Date Visit [place] PRO 33164-7.63 Diagnos SIENNA,SOP 08/29 V A PHONE CALL [id number] is: NASH CNTR L 5-10 MIN ICD-10- WSTRN CM [place] Z71.89 SETS Other [facility] specifi ed automobile club travel counselor ing<br/ >with Provide r Comment s: Other specifi ed automobile club travel counselor [place] PRO [id number] Diagnos SIENNA,SOP 08/29 V A PHONE CALL [id number] is: HIE CNTR L 5-10 MIN ICD-10- WSTRN CM [place] Z71.89 SETS Other [facility] specifi ed automobile club travel counselor ing<br/ >with Provide r Comment s: Other specifi ed automobile club travel counselor ing Outpatient [id number] 09/03 [facility] En[facility] [id number] /2021 [facility] [facility] Outpatient [id number] 02/04 [facility] Encounter [id number] /2021 [facility] [facility] Outpatient [id number] 02/05 [facility] Encounter [id number] [facility] [facility] Outpatient [id number] 03/04 [facility] Encounter [id number] /2021 [facility] [facility] Outpatient [id number] 03/07 [facility] Encounter [id number] [facility] [facility] Outpatient [id number] 04/24 [facility] Encounter [id number] [facility] [facility] Outpatient [id number] 04/24 [facility] Encounter [id number] /2022 [facility] [facility] Outpatient [id number] 06/25 [facility] Encounter [id number] [facility] [facility] Social History Combined list of available smoking, tobacco, and other social history from Department of Defense andVetera Affairs facilities. Social History Response Date Comment Source Type Tobacco smoking MED CURRENT SMOKER 05/23/2019 [facility] status NHIS History of SMOKING CESSATION 05/23/2019 [facility] tobacco use MED REFUSED History of NSG CURRENT SMOKER 05/18/2019 [facility] tobacco use PAST 30 DAYS History of CURRENT SMOKELESS 12/09/2016 1 tin per 3 days [facility] tobacco use TOBACCO USER History of LIFETIME 11/18/2015 [facility] tobacco use NON-TOBACCO USER History of LIFETIME NON-SMOKER 04/14/2004 [facility] [place] tobacco use [place] [facility] History of HISTORY OF SMOKING 12/29/2002 Quit chewing [place] CN[facility] tobacco use tobacco Apr [facility] History of HISTORY OF SMOKING 10/24/2001 ex tobaco user [facility]
--- OUTSIDE RECORDS SUMMARY | 2021-12-23 18:31 | XMS_ITS ---
:1965 Author Organization [facility] of [facility] rs Address [address] [place] [address] Support Name Relationship Address Phone RUBIO NICK Unavailable [address] [facility] [address] RUBIO NICK Unavailable [address] [place] [address] TAMEKA GÓMEZ Unavailable [address] [place] [address] LIZZ GÓMEZ Unavailable [address] [place] [address] Insurance Providers: All historical and current Section Date Range: From patient's date of to the date document was created.This section includes the names of all active insurance providers for the patient. Insurance Type of Plan Start of End of Group Member Insurance Policy P atient's Provider Coverage Name Policy Policy Number ID Provider's Nation's Relationship Coverage Coverage Telephone Name to Policy Number Nation MEDICAID MEDICAID [facility] Mar 22, [facility] [id number] [phone] LAURYN NON, PATIENT [facility] 2014 D [id number] [facility] RANDA Selected Encounter This section includes the information on record at [place] for the Encounter. Date/Time Encounter Type Encounter Description Reason Provider Source Apr 24, 2021 01:08 Outpatient Encounter TELEPHONE TRIAGE PM IHE Encounter Template Text not used by [place] Social History: Smoking Status (Most current) and Tobacco Use (All prior to encounter date) This section includes the most current, and the historical, smoking and tobacco-related health factors from the VA facility where the Encounter took place.Current Smoking Status This section includes the most current smoking, or tobacco-related health factor, from the VA facility where the Encounter took place. Date/Time Current Smoking Status Comment Facility Apr 14, 2004 02:39 PM LIFETIME NON-SMOKER [place] CNT RL WSTRN [facility] Tobacco Use History This section includes a history of the smoking, or tobacco- related health factors, that were collected on or before the date of the Encounter. The data comes from the [place] facility where the Encounter took place. Date/Time Smoking Status/Tobacco Comment Facility Use Apr 14, 2004 02:39 LIFETIME NON-TOBACCO USER [place] [facility] [place] [facility] Dec 29, 2002 02:31 HISTORY OF SMOKING [facility] CN[facility] W [facility] PM Quit chewing tobacco Apr 2000 [place] [facility] Dec 29, 2002 02:31 QUIT TOBACCO USE 1-7 [facility] CNTRL WSTRN PM YE[facility] AGO see [facility] Oct 24, 2001 03:08 HISTORY OF SMOKING [facility] CNTRL W STRN PM ex tobaco user [facility] Oct 24, 2001 03:08 QUIT TOBACCO USE 1-7 VA CNTRL WSTRN PM YEARS AGO [facility] Encounter Notes: All associated encounter notes This section contains the clinical notes associated to the Encounter. Date/Time Encounter Note(s) Provider Source Apr 24, 2021 01:08 PM TELEPHONE ENCOUNTER NOTE: LISA KIRK [place] CNTRL WSTRN LOCAL TITLE: VISN 1 CCC MED RENEWAL [facility] STANDARD TITLE: TELEPHONE ENCOUNTER NOTE DATE OF NOTE: APR 24, 2021@13:08:23 ENTRY DATE: APR 24, 2021@13:10:04 AUTHOR: LISA KIRK EXP COSIGNER: URGENCY: STATUS: COMPLETED The patient, MAKAYLA GÓMEZ ([id number]) called the call center. The following identifiers were used to verify th is patient: . SSN. Contact Type of call: PHARMACY. Caller Response: ADM CALL RESOLVED Caller Area: [facility] Provider Info: [facility] CNTRL WSTRN [facility] (631) MH: [facility] ([facility]) Psychologist Elizabeth Bacon [facility] ([id number]) PACT: PENDING: SO PACT 4 (Focus: Primary Care O nly) Primary Care Provider: Thao Gutierres PHONE:[phone] Denture Model Maker: Feli Hurtado Clinical Associate: Mac Velazco PHON [phone] Assembly Operator: Feli Bowers PHONE:[phone] PACT Clinical Pharmacist: Santa Phillips Clinical POC: Denture Model Maker Mary Jo Hurtado Administrative POC: Assembly Operator Feli Bowers PHONE:[phone] Author: LISA KIRK Comments: RENEW/MAIL Imported Information: SILDENAFIL CITRATE 100MG TAB [id number] 12/09/2016 10/25/2017 (8) SIG: TAKE ONE TABLET BY MOUTH ONCE DAILY NEE DED TAKE 1 HOUR PRIOR TO SEXUAL ACTIVITY Provider: TERRY CHASE Cost/Fill: $ 12.94 Exp/ Can Dt: 12/10/2017 Evaluation/Management Code: HC PRO PHONE CALL 5- 10 MIN ([id number]). Starting at: 04/24/2021 @ 1:08:23 PM Ending at: 04/24/2021 @ 1:09:26 PM Length: 1 minutes. Chief Complaint: Not applicable to call. Class Code: Other specified counseling. Patient's Email Address: [email or web address] /janee/ LISA KIRK ADVANCED TURBO ELECTRIC OPERATOR Signed: 04/24/2021 13:10 Receipt Acknowledged By: * AWAITING SIGNATURE * FELI HURTADO * AWAITING SIGNATURE * MAC VELAZCO
--- OUTSIDE RECORDS SUMMARY | 2021-12-23 18:31 | XMS_ITS | Encounter Summary ---
:1965 Author Organization [facility] of [facility] rs Address [address] [place] [address] Support Name Relationship Address Phone RUBIO NICK Unavailable [address] [facility] [place] [address] RUBIO NICK Unavailable [address] [place] [address] TAMEKA GÓMEZ Unavailable [address] [place] [address] LIZZ GÓMEZ Unavailable [address] [place] [address] Insurance Providers: All historical and current Section [...] Name to Policy Number Nation MEDICAID MEDICAID [facility] Mar 22, [facility] [id number] [phone] LAURYN HUFFMAN, PATIENT [facility] 2014 D [id number] 900 MAKAYLA KEENE [facility] Selected Encounter This section includes the information on record at [place] for the Encounter. Date/Time Encounter Type Encounter Description Reason Provider Source Apr 24, 2021 01:28 Outpatient Encounter PRIMARY CARE/MEDICINE PM IHE Encounter Template Text not used by MD Social History: Smoking Status (Most current) and [...] Apr 14, 2004 02:39 PM LIFETIME NON-SMOKER [place] CNT RL WSTRN [facility] Tobacco Use History This section includes a history of the smoking, or tobacco- related health factors, that were collected on or before the date of the Encounter. The data comes from the [place] facility where the Encounter took place. Date/Time Smoking Status/Tobacco Comment Facility Use Apr 14, 2004 02:39 LIFETIME NON-TOBACCO USER VA CNTRL [place]N [place] [facility] Dec 29, 2002 02:31 HISTORY OF SMOKING VA CNTRL W STRN PM Quit chewing tobacco Apr 2000 [place] [facility] Dec 29, 2002 02:31 QUIT TOBACCO USE 1-7 VA CNTRL WSTRN PM YEARS AGO see above [facility] Oct 24, 2001 03:08 HISTORY OF SMOKING VA CNTRL W STRN PM ex tobaco user [facility] Oct 24, 2001 03:08 QUIT TOBACCO USE 1-7 VA CNTRL WSTRN PM YEARS AGO [facility] Encounter Notes: All associated encounter notes This section contains the clinical notes associated to the Encounter. Date/Time Encounter Note(s) Provider Source Apr 24, 2021 01:28 PM MEDICATION MGT NOTE: MAC PRESSLEY [facility] TITLE: MEDICATION RENEWAL STANDARD TITLE: MEDICATION MGT NOTE DATE OF NOTE: APR 24, 2021@13:28 ENTRY DATE: APR 24, 2021@13:28:51 AUTHOR: MAC PRESSLEY EXP COSIGNER: URGENCY: STATUS: COMPLETED Active Outpatient Medications (including Supplie s): Comments: RENEW/MAIL Imported Information: SILDENAFIL CITRATE 100MG TAB [id number] 12/09/2016 10/25/2017 (8) SIG: TAKE ONE TABLET BY MOUTH ONCE DAILY NEE DED TAKE 1 HOUR PRIOR TO SEXUAL ACTIVITY Provider: TERRY CHASE Cost/Fill: $ 12.94 Exp/ Can Dt: 12/10/2017 /janee/ MAC PRESSLEY LPN LICENSED PRACTICAL NURSE Signed: 04/24/2021 13:29 Receipt Acknowledged By: * AWAITING SIGNATURE * MALLORY RUSSELL
--- OUTSIDE RECORDS SUMMARY | 2021-12-23 18:31 | XMS_ITS ---
:1965 Author Organization [facility] of [facility] rs Address [address] [place] [address] Support Name Relationship Address Phone RUBIO NICK Unavailable [address] [facility] [place] [address] RUBIO NICK Unavailable [address] [place] [address] TAMEKA GÓMEZ Unavailable [address] [place] [address] LIZZ GÓMEZ Unavailable [address] [place] [address] Insurance Providers: All historical and current Section [...] Name to Policy Number Nation MEDICAID MEDICAID [facility] Mar 22, [facility] [id number] [phone] LAURYN NON, PATIENT [facility] 2014 D [id number] 900 [facility] RANDA Selected Encounter This section includes the information on record at [place] for the Encounter. Date/Time Encounter Type Encounter Description Reason Provider Source Jun 25, 2021 02:54 Outpatient Encounter TELEPHONE TRIAGE PM IHE Encounter Template Text not used by [place] Social History: Smoking Status (Most current) and [...] Apr 14, 2004 02:39 PM LIFETIME NON-SMOKER [place] CNT RL WSTRN [facility] Tobacco Use History This section includes a history of the smoking, or tobacco- related health factors, that were collected on or before the date of the Encounter. The data comes from the [place] facility where the Encounter took place. Date/Time Smoking Status/Tobacco Comment Facility Use Apr 14, 2004 02:39 LIFETIME NON-TOBACCO USER [place] CNTRL WSTRN [place] [facility] Dec 29, 2002 02:31 HISTORY OF SMOKING [place] CNTRL W STRN PM Quit chewing tobacco Apr 2000 [place] [facility] Dec 29, 2002 02:31 QUIT TOBACCO USE 1-7 [place] CNTRL WSTRN PM YEARS AGO see above note [place] [facility] Oct 24, 2001 03:08 HISTORY OF SMOKING VA CNTRL W STRN PM ex tobaco user [facility] Oct 24, 2001 03:08 QUIT TOBACCO USE 1-7 ND CNTRL WSTRN PM YEARS AGO [facility] Encounter Notes: All associated encounter notes This section contains the clinical notes associated to the Encounter. Date/Time Encounter Note(s) Provider Source Jun 25, 2021 02:54 PM TELEPHONE ENCOUNTER NOTE: JOHNNY WALLER [place] CNTRL WSTRN [facility] TITLE: VISN 1 CCC ACTION REQUIRED [facility] STANDARD TITLE: TELEPHONE ENCOUNTER NOTE DATE OF NOTE: JUN 25, 2021@14:54:31 ENTRY DATE: JUN 25, 2021@14:56:24 AUTHOR: JOHNNY WALLER EXP COSIGNER: URGENCY: STATUS: COMPLETED VISN 1 CCC ACTION REQUIRED Has ADDENDA OTHER called in for MAKAYLA GÓMEZ ([id number]) . The following identifiers were used to verify th is patient: . SSN. Contact Type of call: REFERRAL/CONSULT REQUEST. Caller Response: ADM CALL RESOLVED Caller Area: [facility] Provider Info: [facility] CNTRL WSTRN [facility] (631) MH: [facility] ([facility]) Psychologist SHABBIR [place] [facility] ([id number]) PACT: PENDING: SO PACT 4 (Focus: Primary Care O nly) Primary Care Provider: MALLORY RUSSELL PHONE:[phone] Student Specialist: ROSA HURTADO Clinical Associate: MAC PRESSLEY PHON [phone] Administrative Staff Supervisor: ROSA EVANGELISTA PHONE:[phone] PACT Clinical Pharmacist: DEMAR MCINTOSH Clinical POC: Student Specialist ACE HURTADO Administrative POC: Administrative Staff Supervisor ROSA EVANGELISTA PHONE:[phone] Author: JOHNNY WALLER Comments: Jeane, calling from [facility], , request s to get vet IRRIGATION INSTALLATION SPECIALIST or VNA services. Jeane states she requested this also in February2020, mortgage loan underwriter unable to locate any notes supporting this. Chidi spears assist. Evaluation/Management Code: HC PRO PHONE CALL 5- 10 MIN ([id number]). Starting at: 06/25/2021 @ 2:54:31 PM Ending at: 06/25/2021 @ 2:55:29 PM Length: 0 minutes. Chief Complaint: Not applicable to call. Class Code: Other specified counseling. Patient's Email Address: [email or web address] /[email or web address]/ JOHNNY WALLER ADVANCED BAIL ATTACHER Signed: 06/25/2021 14:56 Receipt Acknowledged By: * AWAITING SIGNATURE * ROSA HURTADO 06/26/2021 08:26 /janee/ MAC PRESSLEY LPN LICENSED PRACTICAL NURSE 06/25/2021 ADDENDUM STATUS: COMPLETED 03/06/2021 ADDENDUM STATUS: COMPLETED Called Jeane and she repor ts that Marleen is interested in receiving homecare services as noted above. Jeane did report that is not homebound. Author advised that has not established with PCP but is scheduled to see PCP tomorrow and discuss req uest at that time. Jeane reports that was discharged from previous agency a few months ago due to no show for scheduled visits. Author advised will forward information to PCP for review. /janee/ MARIO SHAW RN-BC REGISTERED NURSE Signed: 03/06/2021 11:08 Called and left a voicemail message for Jeane at [facility], asking her to call the clinic to further discuss . Also informed her of discussion per note above. /janee/ ROSA HURTADO RN REGISTERED NURSE Signed: 06/26/2021 09:46
--- OUTSIDE RECORDS SUMMARY | 2021-12-23 18:31 | XMS_ITS | Encounter Summary ---
:1965 Author Organization Department of [facility] rs Address [address] [place] [address] Support Name Relationship Address Phone RUBIO NICK Unavailable [address] [place] [address] RUBIO NICK Unavailable [address] [facility] [address] TAMEKA GÓMEZ Unavailable [address] Unavail able [facility] [address] LIZZ GÓMEZ Unavailable [address] [phone] [facility] [address] Insurance Providers: All historical and current Section [...] Name to Policy Number Nation MEDICAID MEDICAID [facility] Mar 22, [facility] [id number] [phone] LAURYN NON, PATIENT [facility] 2014 D [id number] 900 [facility] R[facility]DA Selected Encounter This section includes the information on record at [place] for the Encounter. Date/Time Encounter Type Encounter Description Reason Provider Source Mar 04, 2021 03:11 Outpatient Encounter TELEPHONE TRIAGE PM IHE Encounter Template Text not used by [place] Plan of Treatment: Future Appointments (+ 6 months) and Future Tests (+/- 45 days) The Plan of Treatment section includes future care activities for the patient from all [facility] treatmentfacilities. This section includes future appointments and future orders which are active, pending orscheduled.Future Appointments This section includes appointments that were scheduled to occur 6 months from the date of the Encounter, up to a maximum of 20 appointments. The data comes from all [place] treatment facilities. Appointment Date/Time Appointment Type Appointment Facili ty Name Mar 07, 2021 11:00 AM AMBULATORY - MEDICINE [place] Social History: Smoking Status (Most current) and Tobacco Use (All prior to encounter date) This section includes the most current, and the historical, smoking and tobacco-related health factors from the [place] facility where the Encounter took place.Current Smoking Status This section includes the most current smoking, or tobacco-related health factor, from the [place] facility where the Encounter took place. Date/Time Current Smoking Status Comment Facility Apr 14, 2004 02:39 PM LIFETIME NON-SMOKER MS CNT RL WSTRN [facility] Tobacco Use History This section includes a history of the smoking, or tobacco- related health factors, that were collected on or before the date of the Encounter. The data comes from the [place] facility where the Encounter took place. Date/Time Smoking Status/Tobacco Comment Facility Use Apr 14, 2004 02:39 LIFETIME NON-TOBACCO USER [place] CNTRL [place]STRN [place] [facility] Dec 29, 2002 02:31 HISTORY OF SMOKING [place] CNTRL W STRN PM Quit chewing tobacco Apr 2000 [place] [facility] Dec 29, 2002 02:31 QUIT TOBACCO USE 1-7 MS CNTRL WSTRN PM YEARS AGO see [facility] Oct [facility], 2001 03:08 HISTORY OF SMOKING MS CNTRL W STRN PM ex tobaco user [facility] Oct 24, 2001 03:08 QUIT TOBACCO USE 1-7 MS CNTRL WSTRN PM YEARS AGO [facility] Encounter Notes: All associated encounter notes This section contains the clinical notes associated to the Encounter. Date/Time Encounter Note(s) Provider Source Mar 04, 2021 03:11 PM TELEPHONE ENCOUNTER NOTE: JOHNNY WALLER [place] CNTRL WSTRN LOCAL TITLE: VISN 1 CCC MED RENEWAL [facility] STANDARD TITLE: TELEPHONE ENCOUNTER NOTE DATE OF NOTE: MAR 04, 2021@15:11:48 ENTRY DATE: MAR 04, 2021@15:18:18 AUTHOR: JOHNNY WALLER EXP COSIGNER: URGENCY: STATUS: COMPLETED VISN 1 CCC MED RENEWAL Has ADDENDA OTHER called in for MKAAYLA GÓMEZ ([id number]) . The following identifiers were used to verify th is patient: . SSN. Contact Type of call: REFERRAL/CONSULT REQUEST. Caller Response: ADM CALL RESOLVED Caller Area: [place] [facility] Provider Info: [facility] CNTRL WSTRN [place] [facility] ([id number]) MH: [facility] (TC) Psychologist Elizabeth Bacon [facility] ([id number]) PACT: PENDING: SO PACT 4 (Focus: Primary Care O nly) Primary Care Provider: Mallory Gutierres PHONE:[phone] Wardrobe Mistress: Portia La Clinical Associate: Mac Velazco PHON E:[phone] Jig Filler: Feli Bowers PHONE:[phone] PACT Clinical Pharmacist: Santa Phillips Clinical POC: Wardrobe Mistress Portia La Administrative POC: Jig Filler Feli Bowers PHONE:[phone] Author: JOHNNY WALLER Comments: Jeane, calling from [facility], , requests to get vet a referral for VNA services with [facility]. Patricia reilly states vet has been getting Medication administration, blood pressure checks with vs, foot checks, BS checks, assist with dressing(socks) and light cleaning. Evaluation/Management Code: HC PRO PHONE CALL 5- 10 MIN ([phone]). Starting at: 03/04/2021 @ 3:11:48 PM Ending at: 03/04/2021 @ 3:15:16 PM Length: 3 minutes. Chief Complaint: Not applicable to call. Class Code: Other specified counseling. Patient's Email Address: [email or web address] /janee/ JOHNNY WALLER ADVANCED INSTITUTIONAL RESEARCH COORDINATOR Signed: 03/04/2021 15:18 Receipt Acknowledged By: 03/06/2021 11:00 /janee/ MARIO SHAW RN-BC REGISTERED NURSE 03/04/2021 15:24 /janee/ MAC VELAZCO LPN LICENSED PRACTICAL NURSE 03/04/2021 ADDENDUM STATUS: COMPLETED Will include PCP. /janee/ MAC VELAZCO LPN LICENSED PRACTICAL NURSE Signed: 03/04/2021 15:25 Receipt Acknowledged By: 03/05/2021 08:34 /janee/ Mallory Gutierres M.D. STAFF PHYSICIAN 03/06/2021 ADDENDUM STATUS: COMPLETED Called Jeane and she repor ts that [place] is interested in receiving homecare services as noted above. Jeane did report that [place] is not homebound. Author advised that has not established with PCP but is scheduled to see PCP tomorrow and discuss req uest at that time. Jeane reports that [place] was discharged from previous agency a few months ago due to no show for scheduled visits. Author advised will forward information to PCP for review. /janee/ MARIO SHAW RN-BC REGISTERED NURSE Signed: 03/06/2021 11:08 Receipt Acknowledged By: * AWAITING SIGNATURE * MALLORY GUTIERRES
--- OUTSIDE RECORDS SUMMARY | 2021-12-23 18:31 | XMS_ITS | Encounter Summary ---
:1965 Author Organization [address] [facility] rs Address [address] [place] [address] Support Name Relationship Address Phone RUBIO NICK Unavailable [address] [place] [address] RUBIO NICK Unavailable [address] [place] [address] TAMEKA GÓMEZ Unavailable [address] [place] [address] LIZZ GÓMEZ Unavailable [address] [place] [address] Insurance Providers: All historical and current Section [...] Name to Policy Number Nation MEDICAID MEDICAID [facility] Mar 22, [facility] [id number] [phone] LAURYN HUFFMAN, PATIENT [facility] 2014 D [id number] 900 MAKAYLA [facility] Selected Encounter This section includes the information on record at [place] for the Encounter. Date/Time Encounter Type Encounter Description Reason Provider Source Mar 07, 2021 11:14 Outpatient Encounter PRIMARY CARE/MEDICINE AM IHE Encounter Template Text not used by [place] Social History: Smoking Status (Most current) and [...] Apr 14, 2004 02:39 PM LIFETIME NON-SMOKER [place] CNT RL WSTRN [facility] Tobacco Use History This section includes a history of the smoking, or tobacco- related health factors, that were collected on or before the date of the Encounter. The data comes from the [place] facility where the Encounter took place. Date/Time Smoking Status/Tobacco Comment Facility Use Apr 14, 2004 02:39 LIFETIME NON-TOBACCO USER [place] CNTRL WSTRN [place] [facility] Dec 29, 2002 02:31 HISTORY OF SMOKING VA CNTRL W STRN PM Quit chewing tobacco Apr 2000 [place] [facility] Dec 29, 2002 02:31 QUIT TOBACCO USE 1-7 DE CNTRL WSTRN PM YEARS AGO see above [facility] Oct 24, 2001 03:08 HISTORY OF SMOKING VA CNTRL W STRN PM ex tobaco user [facility] Oct 24, 2001 03:08 QUIT TOBACCO USE 1-7 DE CNTRL WSTRN PM YEARS AGO [facility] Encounter Notes: All associated encounter notes This section contains the clinical notes associated to the Encounter. Date/Time Encounter Note(s) Provider Source Mar 07, 2021 11:14 AM ADMINISTRATIVE NOTE: MAC PRESSLEY [facility] TITLE: ADMINISTRATIVE NOTE STANDARD TITLE: ADMINISTRATIVE NOTE DATE OF NOTE: MAR 07, 2021@11:14 ENTRY DATE: MAR 07, 2021@11:15:19 AUTHOR: MAC PRESSLEY EXP COSIGNER: URGENCY: STATUS: COMPLETED [place] was a no show for F2F visit today. /janee/ MAC PRESSLEY LPN LICENSED PRACTICAL NURSE Signed: 03/07/2021 11:17 Receipt Acknowledged By: * AWAITING SIGNATURE * ROSA EVANGELISTA
--- OUTSIDE RECORDS SUMMARY | 2021-12-23 18:32 | XMS_ITS | Encounter Summary ---
:1965 Author Organization Department of [facility] rs Address [address] [place] [address] Support Name Relationship Address Phone RUBIO NICK Unavailable [address] [place] [address] RUBIO NICK Unavailable [address] [facility] [address] TAMEKA GÓMEZ Unavailable [address] Unavail able [place] [address] LIZZ GÓMEZ Unavailable [address] [phone] [place] [address] Insurance Providers: All historical and current Section [...] MEDICAID [facility] Mar 22, [facility] [id number] [phone] LAURYN NON, PATIENT [facility] 2014 D [id number] 900 MAKAYLA [facility] RANDA Selected Encounter This section includes the information on record at [place] for the Encounter. Date/Time Encounter Type Encounter Description Reason Provider Source Feb 04, 2021 01:55 Outpatient Encounter TELEPHONE TRIAGE PM IHE Encounter Template Text not used by [place] Plan of Treatment: Future Appointments (+ 6 [...] 20 appointments. The data comes from all [place] treatment facilities. Appointment Date/Time Appointment Type Appointment Facili ty Name Mar 07, 2021 11:00 AM AMBULATORY - MEDICINE [place] Social History: Smoking Status (Most current) and Tobacco Use (All prior to encounter date) This section includes the most current, and the historical, smoking and tobacco-related health factors from the [place] facility where the Encounter took place.Current Smoking Status This section includes the most current smoking, or tobacco-related health factor, from the [place] facility where the Encounter took place. Date/Time Current Smoking Status Comment Facility Apr 14, 2004 02:39 PM LIFETIME NON-SMOKER [place] CNT RL WSTRN [facility] Tobacco Use History This section includes a history of the smoking, or tobacco- related health factors, that were collected on or before the date of the Encounter. The data comes from the [place] facility where the Encounter took place. Date/Time Smoking Status/Tobacco Comment Facility Use Apr 14, 2004 02:39 LIFETIME NON-TOBACCO USER [place] CNTRL WSTRN [place] [facility] Dec 29, 2002 02:31 HISTORY OF SMOKING [place] CNTRL W STRN PM Quit chewing tobacco Apr 2000 [place] [facility] Dec 29, 2002 02:31 QUIT TOBACCO USE 1-7 GA CNTRL WSTRN PM YEARS AGO see above note [place] [facility] Oct 24, 2001 03:08 HISTORY OF SMOKING [place] CNTRL W STRN PM [facility] Oct 24, 2001 03:08 QUIT TOBACCO USE 1-7 GA CNTRL WSTRN PM YEARS AGO [facility] Encounter Notes: All associated encounter notes This section contains the clinical notes associated to the Encounter. Date/Time Encounter Note(s) Provider Source Feb 04, 2021 01:55 PM TELEPHONE ENCOUNTER NOTE: PARIS ALONZO [place] CNTRL WSTRN LOCAL TITLE: VISN 1 CCC ACTION REQUIRED [facility] STANDARD TITLE: TELEPHONE ENCOUNTER NOTE DATE OF NOTE: FEB 04, 2021@13:55:31 ENTRY DATE: FEB 04, 2021@13:58:17 AUTHOR: PARIS ALONZO EXP COSIGNER: URGENCY: STATUS: COMPLETED VISN 1 CCC ACTION REQUIRED Has ADDENDA The patient, MAKAYLA GÓMEZ ([id number]) called the call center. The following identifiers were used to verify th is patient: . SSN. Contact Type of call: ADMINISTRATIVE. Caller Response: ADM CALL RESOLVED Caller Area: [facility] PCMM Provider Info: No PACT assigned at any [place] location. LOCAL [facility] CNTRL WSTRN [place] [facility] [phone] [facility] Psychologist Elizabeth Bacon Author: PARIS ALONZO Comments: renew and mail would also like to reestablish Primary c are in [facility] [place] can be reached at [phone] Imported Information: Medications : MELATONIN 5MG CAP/TAB Prescription #:[id number] Prescribing Physician: DONALD RUGGIERO (CLINICAL NURSE ) on 11/2019 09:29 Frequency/ Dosage: 5MG ORAL QHS Evaluation/Management Code: HC PRO PHONE CALL 5- 10 MIN ([id number]). Starting at: 02/04/2021 @ 1:55:31 PM Ending at: 02/04/2021 @ 1:57:06 PM Length: 1 minutes. Chief Complaint: Not applicable to call. Class Code: Other specified counseling. Patient's Email Address: [email or web address] /janee/ PARIS ALONZO ADVANCED MAGNETIC PROSPECTING OPERATOR Signed: 02/04/2021 13:58 Receipt Acknowledged By: 02/04/2021 14:28 /janee/ Donald Ruggiero SCHEDULING REPRESENTATIVE, STAFF CLINICAL NURSE SPECIALIST * AWAITING SIGNATURE * AKBAR HOWARD * AWAITING SIGNATURE * MCKAYLA GARCIA 02/04/2021 14:21 /janee/ CANDY KENYON BUSINESS DEVELOPMENT RECRUITER MAGNETIC PROSPECTING OPERATOR * AWAITING SIGNATURE * VARGAS GOMEZ 02/04/2021 ADDENDUM STATUS: COMPLETED [facility] please call to schedule /janee/ CANDY KENYON BUSINESS DEVELOPMENT RECRUITER MAGNETIC PROSPECTING OPERATOR Signed: 02/04/2021 14:22 Receipt Acknowledged By: * AWAITING SIGNATURE * AYDEN CAIN
--- OUTSIDE RECORDS SUMMARY | 2021-12-23 18:32 | XMS_ITS ---
:1965 Author Organization Department of [facility] rs Address [address] [place] [address] Support Name Relationship Address Phone RUBIO NICK Unavailable [address] [address] RUBIO NICK Unavailable [address] [place] [address] TAMEKA GÓMEZ Unavailable [address] [place] [address] LIZZ GÓMEZ Unavailable [address] [place] [address] Insurance Providers: All historical and current Section [...] Name to Policy Number Nation MEDICAID MEDICAID [facility] Mar 22, [facility] [id number] [phone] LAURYN HUFFMAN, PATIENT [facility] 2014 D [id number] 900 MAKAYLA Y[place] Selected Encounter This section includes the information on record at MD for the Encounter. Date/Time Encounter Type Encounter Description Reason Provider Source Feb 05, 2021 01:46 Outpatient Encounter PRIMARY CARE/MEDICINE PM IHE Encounter Template Text not used by MD Plan of Treatment: Future Appointments (+ 6 [...] 20 appointments. The data comes from all [place] treatment facilities. Appointment Date/Time Appointment Type Appointment Facili ty Name Mar 07, 2021 11:00 AM AMBULATORY - MEDICINE [place] Social History: Smoking Status (Most current) and Tobacco Use (All prior to encounter date) This section includes the most current, and the historical, smoking and tobacco-related health factors from the MD facility where the Encounter took place.Current Smoking Status This section includes the most current smoking, or tobacco-related health factor, from the MD facility where the Encounter took place. Date/Time Current Smoking Status Comment Facility Apr 14, 2004 02:39 PM LIFETIME NON-SMOKER MD CNT RL WSTRN [facility] Tobacco Use History This section includes a history of the smoking, or tobacco- related health factors, that were collected on or before the date of the Encounter. The data comes from the MD facility where the Encounter took place. Date/Time Smoking Status/Tobacco Comment Facility Use Apr 14, 2004 02:39 LIFETIME NON-TOBACCO USER [place] CNTRL WSTRN [place] [facility] Dec 29, 2002 02:31 HISTORY OF SMOKING VA CNTRL W STRN PM Quit chewing tobacco Apr 2000 [place] [facility] Dec 29, 2002 02:31 QUIT TOBACCO USE 1-7 MD CNTRL WSTRN PM YEARS AGO see above note [place] [facility] Oct 24, 2001 03:08 HISTORY OF SMOKING VA CNTRL W STRN PM ex tobaco [facility] Oct 24, 2001 03:08 QUIT TOBACCO USE 1-7 MD CNTRL WSTRN PM YEARS AGO [facility] Encounter Notes: All associated encounter notes This section contains the clinical notes associated to the Encounter. Date/Time Encounter Note(s) Provider Source Feb 05, 2021 01:46 PM LETTERS: AYDEN CAIN [facility] TITLE: PATIENT LETTER (T) STANDARD TITLE: LETTERS DATE OF NOTE: FEB 05, 2021@13:46 ENTRY DATE: FEB 05, 2021@13:46:40 AUTHOR: AYDEN CAIN EXP COSIGNER: URGENCY: STATUS: COMPLETED PATIENT LETTER (T) Has ADDENDA [facility] Toll Free Number Primary Care Telephone Assistance can be reached at extension [phone] [facility] scheduling can be reac hed at extension [phone] [facility] scheduling can be indy chejosé luis at ext [phone] MAKAYLA GÓMEZ [address] [facility] [address], [place], [address] Dear Marleen, Kira to patient aligned c are team 4 (PACT 4) with Dr. Thao Russell. Prior to meeting you at your new patient appointment we a re requesting some of your past medical history so that we may provide you with the exceptional care you deserve. Please note that it is very helpful to have thes e documents at least two days prior to your appointment date as the more infor mation we have the better we will be able to meet your needs: * Last History & Physical * Immunization records * Medication list * Diagnosis list * Most recent labs * Diagnostic screens (Colonoscopy, Abdominal Aor tic Aneurysm screen, Mammograms, PAPS, etc.) You may either drop the requested records off in person to [address] [place] [address] or you may have them faxed to: [phone] ATTN: PACT 4 *Also please complete the enclosed new patient p acket and drop it off at our [place] location: [address] [place] [address]* If you have any questions please do not hesitate to contact the [facility] [place] call center at . We look forward to providing your health care! 02/05/2021 ADDENDUM STATUS: COMPLETED reestablish care appt 03/07/[address] Abel /es/ AYDEN CAIN ADVANCED BRIM FLEXER Signed: 02/05/2021 15:21 Receipt Acknowledged By: * AWAITING SIGNATURE * THAO RUSSELL * AWAITING SIGNATURE * MAC PRESSLEY Sincerely, Your Primary Care Team [facility] [address] [facility] [address] [place] [address] [place], [place] [id number] [place] [facility] [address] [facility] [address] [place] [address] [place] [address] [phone] [facility] [address] [facility] [address] [place] [address] [place], [place] [id number]
[2021-12-23 19:19] VITALS: BP 113/71; PULSE 117; RESP 16; TEMP 36.7; O2SAT 98
--- NOTE | 2021-12-23 19:19 | PC.NURSE ---
PATIENT WAS CHANGE INTO HOSPITAL ATTIRE BY THIS PCT .
[2021-12-23 19:21] LABS: MANUAL DIFF FLAG NO
--- NOTE | 2021-12-23 19:25 | PHA.MEDREC ---
Pharmacy Consult ? Medication Reconciliation Pharmacy has completed the medication reconciliation. [facility], and patient has no active records as of 04/24/2021 and thats for viagra. His other meds including metformin, lisinopril, and phenobarb have not been continued since 10/2015. Patient was residing in a skilled facility for a little while around his last admission (patient is unsure and poor historian). He did endorse taking folic acid, thiamine and magnesium and said he is supposed to take some meds from his stomach DR . I looked at the note from Dr Hutchison stating he is supposed to be on aldactone and lasix. Not sure where/if he is filling them Srinath
[2021-12-23 19:28] LABS: Ammonia 43 umol/L (13-55)
[2021-12-23 19:31] LABS: Basophils Percent Auto 0.2 % (0-2); Eosinophils Absolute Auto 0.3 X10*3/uL (0.0-0.4); Eosinophils Percent Auto 2.9 % (0-4); Hematocrit 32.2 % (42.0-52.0); Hemoglobin 11.5 g/dl (14.0-18.0); Imm Gran Abs Auto 0.07 X10*3/uL (0.00-0.03); Imm Gran Pct Auto 0.7 % (0.0-0.4); Lymphocytes Percent Auto 9.7 % (20-40); Mean Corpuscular HGB Conc 35.7 g/dl (31.0-36.0); Mean Corpuscular Hemoglobin 36.9 pg (27.0-33.0); Mean Corpuscular Volume 103.2 fL (80.0-98.0); Mean Platelet Volume 9.7 fL (9.4-12.4); Monocytes Percent Auto 10.1 % (2-11); Neutrophils Absolute Auto 7.6 x10*3/uL (2.0-8.3); Neutrophils Percent Auto 76.4 % (45-73); Red Blood Count 3.12 X10*6/uL (4.60-5.80); Red Cell Distribution Width 15.8 % (11.0-16.0); White Blood Count 9.9 X10*3/uL (4.8-10.8)
[2021-12-23 19:33] LABS: Platelet Count 98 X10*3/uL (160-400)
[2021-12-23 19:38] LABS: INTERNATIONAL NORM RATIO 2.4 (0.9-1.1)
[2021-12-23 19:40] LABS: Alanine Aminotransferase 50 U/L (0-40); Albumin Level 2.2 g/dL (3.5-5.0); Alkaline Phosphatase 190 U/L (39-117); Anion Gap 18 (12-20); Aspartate Amino Transferase 71 U/L (5-37); Bilirubin Total 6.3 mg/dL (0.0-1.0); Blood Urea Nitrogen 51 mg/dL (9-16); COVID-19 Test Negative (Negative); Calcium 8.7 mg/dL (8.4-10.2); Carbon Dioxide 18 mmol/L (22-29); Chloride 100 mmol/L (96-108); Creatinine Clr Calc Pharmacy 58.6; Estimated Glomerular Filt Rate 49; Glucose Random 141 mg/dL (60-115); Lipase 24 U/L (8-78); Magnesium 2.2 mg/dL (1.6-2.6); Potassium 4.7 mmol/L (3.3-5.1); Sodium 131 mmol/L (135-145); Total Protein 6.9 g/dL (6.5-8.0)
[2021-12-23 22:00] VITALS: BP 104/53; PULSE 113; RESP 16; TEMP 36.8; O2SAT 98
[2021-12-23] MEDS: 0.9 % Sodium Chloride 1,000 ML 999 ML IV (22:29)
--- NOTE | 2021-12-23 22:37 | PC.NURSE ---
PATIENT WAS INCONTINENT OF URINE ,PREI CARE GIVEN ,BEDDING CHANGE .
[2021-12-23 23:06] LABS: B Type Natriuretic Peptide 45 pg/mL (<100)
[2021-12-23] MEDS: Lidocaine HCl 1 % 20 ML VIAL SUBCUT (23:11)
[2021-12-23] MEDS: Albumin Human 25 % 100 ML IV (23:14)
--- NOTE | 2021-12-23 23:49 | PM.IMHP ---
History of Present Illness Date of Service: 12/23/21 Chief Complaint: abd distension 56-year-old male with past medical history of alcoholic liver cirrhosis, history of ascites, diabetes, hypertension presents to the hospital with complaints of abdominal distension. Patient has flat affect, and very guarded, not giving me much history, after pole every answer out of him with probing and constant repeating of my questions. He states that s he has increasing abdominal distension for the past few days, denies any abdominal pain, no fever or chills. Denies any nausea or vomiting, no diarrhea or constipation. And no lower extremity edema. Denies any urinary symptoms. According to a note done by GI doctor son, patient has history of decompensated liver cirrhosis with ascites and thrombocytopenia, patient was supposed to be on Aldactone and Lasix, as well as a low-sodium diet, and scheduled paracentesis every 2 weeks, patient appears to be very noncompliant with medications as well as paracentesis. On arrival to the ED patient hemodynamically stable Labs are significant for WBC count of 9.9, hemoglobin of 11.5, hematocrit 32.2, MCV of 103.2, PT of 29, INR of 2.4, sodium of 131, creatinine of 1.5 with a baseline of 0.76, total bili of 6.3, AST of 71, ALT 50, alk-phos of 190, albumin of 2.2, Patient underwent diagnostic as well as therapeutic paracentesis. No evidence of SBP on results. Abdominal pelvic CT shows evidence of cirrhosis and portal hypertension as evidenced by nodular cirrhotic liver, there is gastroesophageal varices, moderate ascites, Patient will be admitted for further management Review of Systems Review of Systems: Yes all other systems are reviewed and are negative [facility] Medical History (Updated 12/24/21 @ 07:12 by Harika Baldwin MD) Alcohol abuse Ascites Diabetes Hypertension Liver cirrhosis Withdrawal seizures Family History (Updated 12/24/21 @ 07:10 by Harika Baldwin MD) Other No family history of coronary artery disease Surgical History (Updated 12/24/21 @ 07:10 by Harika Baldwin MD) No pertinent past surgical history Social History Alcohol intake: former Patient Tobacco Use Status: Never used Tobacco Advance Directives: No Advance Directives Information Provided: Yes Advance Directives Date on File: 08/13/21 service: Yes Current occupational status: unemployed Meds Allergies Allergy/AdvReac Type Severity Reaction Status Date / Time acetaminophen [From PERCOCET] Allergy Severe AGITATION Verified 11/14/21 10:09 oxycodone [From PERCOCET] Allergy Severe AGITATION Verified 11/14/21 10:09 bee pollen [Bee Stings] Allergy Mild SWELLING Verified 11/14/21 10:09 lorazepam AdvReac Unknown AGITATION Verified 11/14/21 10:09 ativan Allergy Mild unknown Uncoded 11/14/21 10:09 Active Medications: Current Medications Albumin Human (Kedbumin 25 %) 100 mls @ 100 mls/hr IV Q1H LEO Stop: 12/24/21 00:59 Last Admin: 12/23/21 23:14 Dose: 100 mls/hr Sodium Chloride (Ns) 1,000 mls @ 999 mls/hr IV .Q1H1M LEO Stop: 12/24/21 00:15 Pharmacy Consult (Consult Rx Perform Med Rec) 1 each MISCELLANE ONCE PRN PRN Reason: Consult order Home Medications Medication Instructions Recorded Confirmed Last Taken Type folic acid 1 mg tablet 1 mg PO DAILY 08/01/21 12/23/21 Unknown History thiamine HCl (vitamin B1) 100 mg 1 tab PO DAILY 08/01/21 12/23/21 Unknown History tablet furosemide 40 mg tablet 40 mg PO DAILY 10/17/21 12/23/21 Unknown History spironolactone 100 mg tablet 200 mg PO DAILY 12/23/21 12/23/21 Unknown History (Aldactone) Physical Exam Vital Signs and Narrative: Vital Signs: Last Vital Signs Temp 98.2 F 12/23/21 22:00 Pulse 113 H 12/23/21 22:00 Resp 16 12/23/21 22:00 BP 104/53 L 12/23/21 22:00 Pulse Ox 98 12/23/21 22:00 O2 Del Method 12/23/21 22:00 BMI result Body Mass Index 32.3 Const: General: cooperative and no acute distress Orientation/consciousness: patient oriented x3 Eyes: General: appearance normal, both eyes and all related structures Resp: Effort & Inspection: normal respiratory effort Auscultation: clear to auscultation bilaterally Cardio: Rate: regular rate Rhythm: regular rhythm GI: Other: Abdomen distension, no significant rebound or guarding, under only on deep palpation Palpation (GI): Soft to palpation Auscultation: normal bowel sounds Skin: General skin exam: no rashes or lesions noted Neuro: General: patient oriented x3 Cognition (Neuro): normal cognition Extrem: General: Yes normal to inspection and Yes no pedal edema Results Labs CBC and Chem 7: 12/24/21 06:45 12/23/21 23:56 Labs: Laboratory Results - last 24 hr 12/23/21 12/23/21 12/23/21 19:15 19:15 19:15 MCV 103.2 H MCH 36.9 H MCHC 35.7 RDW 15.8 Plt Count 98 L MPV 9.7 Immature Gran % (Auto) 0.7 H Neut % (Auto) 76.4 H Lymph % (Auto) 9.7 L [place] % (Auto) 10.1 Eos % (Auto) 2.9 Baso % (Auto) 0.2 Lymph # (Auto) 1.0 L [place] # (Auto) 1.0 Eos # (Auto) 0.3 Baso # (Auto) 0.0 Abs Immat Gran (auto) 0.07 H Absolute Neuts (auto) 7.6 Absolute Nucleated RBC 0.000 Nucleated RBC % (auto) 0.0 PT INR Anion Gap 18 Estim Creat Clear Calc 58.6 Estimated GFR 49 Random Glucose 141 H Calcium 8.7 D Magnesium 2.2 Total Bilirubin 6.3 H AST 71 H ALT 50 H Alkaline Phosphatase 190 H Ammonia B-Natriuretic Peptide Total Protein 6.9 Albumin 2.2 L Lipase 24 COVID-19 (JESIKA) Negative COVID-19 Clin Com See Note 12/23/21 12/23/21 12/23/21 19:15 19:15 19:15 MCV MCH MCHC RDW Plt Count MPV Immature Gran % (Auto) Neut % (Auto) Lymph % (Auto) [place] % (Auto) Eos % (Auto) Baso % (Auto) Lymph # (Auto) [place] # (Auto) Eos # (Auto) Baso # (Auto) Abs Immat Gran (auto) Absolute Neuts (auto) Absolute Nucleated RBC Nucleated RBC % (auto) PT 29.0 H INR 2.4 H Anion Gap Estim Creat Clear Calc Estimated GFR Random Glucose Calcium Magnesium Total Bilirubin AST ALT Alkaline Phosphatase Ammonia 43 B-Natriuretic Peptide 45 Total Protein Albumin Lipase COVID-19 (JESIKA) COVID-19 Clin Com Imaging Radiologist's Impressions: Impressions Abdomen/Pelvis CT 12/23/21 20:26 IMPRESSION: There is evidence of cirrhosis and portal hypertension as evidenced by nodular, cirrhotic liver, gastroesophageal varices, and moderate ascites as noted above. There is increased attenuation throughout the mesentery which could relate to portal hypertension and nonspecific mildly prominent mesenteric lymph nodes. Colonic diverticulosis, predominantly right-sided without evidence of diverticulitis. Punctate calcifications at the upper and lower pole of the right kidney as well as at the lower pole the left kidney either represent nonobstructing calculi versus vascular calcifications. The appendix is not definitively visualized. If there are clinical concerns for appendicitis, repeat study with contrast could be performed. Fleischner guidelines were followed. Assessment and Plan (1) Ascites due to alcoholic cirrhosis: Status: Acute (2) SAUL (acute kidney injury): Status: Acute (3) Acute hyponatremia: Status: Acute (4) Elevated liver enzymes: Status: Acute (5) Non-compliant patient: Status: Acute (6) Coagulopathy: Status: Acute Plan this is a 56-year-old male with past medical history of liver cirrhosis secondary to alcohol abuse presents to the hospital with complaints of abdominal distension # abdominal ascites - secondary to liver cirrhosis - patient noncompliant with recommended scheduled Q to site 80s per GI - patient also not compliant with medications - at this time patient underwent therapeutic as well as diagnostic paracentesis - no evidence of SBP - GI consult # liver cirrhosis with ascites - continue Aldactone and Lasix - GI consulted 3 acute hyponatremia - likely secondary to hypervolemic hyponatremia in the setting of liver cirrhosis - patient given NS with gradual improvement in his sodium - follow BMP # coagulopathy - likely secondary to liver cirrhosis - no evidence of bleed at this time - monitor for spontaneous bleeding # SAUL - likely hepatorenal - improved after IV fluids - follow BMP # hypoalbuminemia - secondary to above - albumin infuse x2 in the ED # noncompliant patient - although patient lives at long-term, he is noncompliant and does not take his Aldactone or Lasix and is not compliant with his scheduled paracentesis that is recommended by GI to be done every 2 weeks DVT prophylaxis: SCDs Quality Stroke Does the patient have a stroke diagnosis?: No VTE Prior VTE?: No VTE Risk Level:: Medical - moderate - high VTE Device Contraindication: N/A - Device Ordered VTE Drug Contraindication: Treatment Not Indicated
[2021-12-24] VITALS (7 sets, daily range): BP systolic 83–145; BP diastolic 41–100; PULSE 77–114; RESP 14–22; TEMP 35.9–36.7; O2SAT 94–100
[2021-12-24 00:08] LABS: MN% 87.1 %; PMN% 12.9 %; WBC Peritoneal Fluid 0.388 X10*3/uL
[2021-12-24 00:42] LABS: Alanine Aminotransferase 41 U/L (0-40); Albumin Level 2.4 g/dL (3.5-5.0); Alkaline Phosphatase 172 U/L (39-117); Anion Gap 18 (12-20); Aspartate Amino Transferase 62 U/L (5-37); Bilirubin Total 6.1 mg/dL (0.0-1.0); Blood Urea Nitrogen 48 mg/dL (9-16); Calcium 8.4 mg/dL (8.4-10.2); Carbon Dioxide 19 mmol/L (22-29); Chloride 101 mmol/L (96-108); Creatinine Clr Calc Pharmacy 64.7; Estimated Glomerular Filt Rate 54; Glucose Random 135 mg/dL (60-115); Potassium 4.6 mmol/L (3.3-5.1); Sodium 133 mmol/L (135-145); Total Protein 6.5 g/dL (6.5-8.0)
[2021-12-24 00:52] LABS: RBC Peritoneal Fluid < 0.002 X10*6/uL
[2021-12-24 00:53] LABS: BF Shift QC OK YES
[2021-12-24 00:54] LABS: Lymphocyte Peritoneal Fl 30 %; Monocytes Peritoneal Fl 10 %; Neutrophils Peritoneal Fluid 15 %
[2021-12-24 00:58] LABS: Other Peritioneal Fl 45 %
[2021-12-24] MEDS: Albumin Human 25 % 100 ML IV ×3 (01:08→22:58)
--- NOTE | 2021-12-24 01:20 | ECG_ITS ---
Test Reason : WEAKNESS Blood Pressure : / mmHG Vent. Rate : 109 BPM Atrial Rate : 109 BPM P-R Int : 138 ms QRS Dur : 080 ms QT Int : 358 ms P-R-T Axes : 062 064 047 degrees QTc Int : 482 ms Sinus tachycardia Otherwise normal ECG When compared with ECG of 11-AUG-2021 08:06, Nonspecific T wave abnormality is no longer Present Referred By: Lorenzo Valdivia Electronically Signed By:NIMCO CHERY
--- NOTE | 2021-12-24 05:13 | PC.NURSE ---
BP noted to be 80/40. Called Dr Albrecht who ordered 1 liter NS to be hung.
[2021-12-24] MEDS: 0.9 % Sodium Chloride 1,000 ML 999 ML IV ×2 (05:15)
[2021-12-24 06:56] LABS: MANUAL DIFF FLAG NO
[2021-12-24 06:58] LABS: Basophils Percent Auto 0.2 % (0-2); Eosinophils Absolute Auto 0.4 X10*3/uL (0.0-0.4); Eosinophils Percent Auto 6.9 % (0-4); Hemoglobin 9.2 g/dl (14.0-18.0); Imm Gran Abs Auto 0.02 X10*3/uL (0.00-0.03); Imm Gran Pct Auto 0.4 % (0.0-0.4); Lymphocytes Absolute Auto 0.7 X10*3/uL (1.2-4.9); Lymphocytes Percent Auto 14.6 % (20-40); Mean Corpuscular HGB Conc 34.1 g/dl (31.0-36.0); Mean Corpuscular Hemoglobin 36.5 pg (27.0-33.0); Mean Corpuscular Volume 107.1 fL (80.0-98.0); Mean Platelet Volume 9.1 fL (9.4-12.4); Monocytes Absolute Auto 0.6 X10*3/uL (0.1-1.2); Monocytes Percent Auto 11.8 % (2-11); Neutrophils Absolute Auto 3.4 x10*3/uL (2.0-8.3); Neutrophils Percent Auto 66.1 % (45-73); Red Blood Count 2.52 X10*6/uL (4.60-5.80); Red Cell Distribution Width 15.8 % (11.0-16.0); White Blood Count 5.1 X10*3/uL (4.8-10.8)
[2021-12-24 07:01] LABS: Platelet Count 45 X10*3/uL (160-400)
[2021-12-24 07:24] LABS: Anion Gap 16 (12-20); Blood Urea Nitrogen 40 mg/dL (9-16); Calcium 7.9 mg/dL (8.4-10.2); Carbon Dioxide 18 mmol/L (22-29); Chloride 108 mmol/L (96-108); Estimated Glomerular Filt Rate > 60; Glucose Random 107 mg/dL (60-115); Potassium 4.5 mmol/L (3.3-5.1); Sodium 137 mmol/L (135-145)
--- NOTE | 2021-12-24 07:56 | PC.NURSE ---
PATIENT'S HCP AKBAR ANGLIN CALLS AT THIS TIME FOR UPDATE. RN BUSY AND HCP LEAVES CALL BACK NUMBER FOR UPDATES/QUESTIONS [phone]
--- NOTE | 2021-12-24 08:33 | PC.NURSE ---
necrotic wounds on glutial folds
[2021-12-24] MEDS: Spironolactone 25 MG TABLET 200 MG PO (10:21)
[2021-12-24] MEDS: Thiamine HCL 100 MG TABLET PO (10:22)
[2021-12-24] MEDS: Magnesium Oxide 400 MG TABLET PO ×2 (10:22→21:14)
[2021-12-24] MEDS: Folic Acid 1 MG TABLET PO (10:22)
[2021-12-24] MEDS: Furosemide 40 MG TABLET PO (10:22)
--- NOTE | 2021-12-24 11:12 | P.CNGI_ITS ---
History of Present Illness Data of Consult Service Date: 12/24/21 Requesting physician: Harika Baldwin Primary Care Provider: Maren Carvajal MD HPI Reason for consult: ascites 56 yr old m with hx of alcohol related cirrhosis and non compliance, peripheral neuropathy and poor mobility being seen for assessment PAtient came in to the ED du to increasing abdo distention and discomfort, with some SOB. He has been non compliant with meds at [facility] and with scheduled o/p paracentesis q 2 weekly. He also has sacral ulcerations due to poor mobility from peripheral neuropathy. Denies diarrhea, constipation, black stools, rectal bleeding. He does some slightly disconnected during the interview. 5 L were removed in ED and labs neg for SBP, SAUL was noted on labs. Review of Systems Review of Systems: Constitutional : No Weight loss, No Fever, No Chills, + Fatigue, No Malaise ENT/Mouth : No sore throat, No Rhinorrhea Eyes: No Eye Pain, No Swelling, No Redness Cardiovascular : No Chest Pain, + SOB, No Dyspnea on Exertion, No Orthopnea, No Edema, No Palpitations Respiratory : No Cough, No Sputum, No Wheezing Gastrointestinal : No Nausea, + Vomiting, No Diarrhea, No Constipation, + abdominal Pain, No Hematochezia, No Melena, + abdominal distention Genitourinary : No Dysuria, No Urinary Frequency, No Hematuria, Musculoskeletal : No joint pain, No Myalgias, No Joint Swelling Skin : No Skin Lesions, No rash Neuro : No Weakness, + Numbness, No Dizziness, No Headache Psych : No Anxiety/Panic, No Depression All other systems reviewed and are negative Yes all other systems are reviewed and are negative Neurologic: Reports Sensory deficit (Neuro) [facility] Past Medical History Medical History (Updated 12/24/21 @ 18:28 by Esau Reveles MD) Alcohol abuse Ascites Diabetes Hypertension Liver cirrhosis Pressure ulcer Withdrawal seizures Family History Family History (Updated 12/24/21 @ 07:10 by Harika Baldwin MD) Other No family history of coronary artery disease Surgical History Surgical History (Updated 12/24/21 @ 07:10 by Harika Baldwin MD) No pertinent past surgical history Social History Social History Alcohol intake: former Patient Tobacco Use Status: Never used Tobacco Advance Directives: No Advance Directives Information Provided: Yes Advance Directives Date on File: 08/13/21 service: Yes Current occupational status: unemployed Meds Allergies Allergy/AdvReac Type Severity Reaction Status Date / Time acetaminophen [From PERCOCET] Allergy Severe AGITATION Verified 11/14/21 10:09 oxycodone [From PERCOCET] Allergy Severe AGITATION Verified 11/14/21 10:09 bee pollen [Bee Stings] Allergy Mild SWELLING Verified 11/14/21 10:09 lorazepam AdvReac Unknown AGITATION Verified 11/14/21 10:09 ativan Allergy Mild unknown Uncoded 11/14/21 10:09 Active Medications: Current Medications Acetaminophen (Acetaminophen 325 Mg Tablet) 650 mg PO Q12H PRN PRN Reason: Pain, Mild (Pain Scale 1-3) Docusate Sodium (Docusate Sodium 100 Mg Capsule) 100 mg PO DAILY PRN PRN Reason: Constipation Folic Acid (Folic Acid 1 Mg Tablet) 1 mg PO DAILY [facility] Last Admin: 12/24/21 10:22 Dose: 1 mg Furosemide (Furosemide 40 Mg Tablet) 40 mg PO DAILY [facility]; Protocol Last Admin: 12/24/21 10:22 Dose: 40 mg Magnesium Oxide (Magnesium Oxide 400 Mg Tablet) 400 mg PO BID [facility] Last Admin: 12/24/21 10:22 Dose: 400 mg Ondansetron HCl (Ondansetron Hcl 4 Mg/2 Ml Vial) 4 mg IVPUSH Q8H PRN PRN Reason: Nausea and Vomiting Pharmacy Consult (Consult Rx Perform Med Rec) 1 each MISCELLANE ONCE PRN PRN Reason: Consult order Sodium Chloride (0.9 % Sodium Chloride Flush 3 Ml Syringe) 3 ml IVFLUSH QSHIFT [facility] Last Admin: 12/24/21 10:23 Dose: Not Given Spironolactone (Spironolactone 25 Mg Tablet) 200 mg PO DAILY [facility]; Protocol Last Admin: 12/24/21 10:21 Dose: 200 mg Thiamine HCl (Thiamine Hcl 100 Mg Tablet) 100 mg PO DAILY [facility] Last Admin: 12/24/21 10:22 Dose: 100 mg Home Medications Medication Instructions Recorded Confirmed Last Taken Type folic acid 1 mg tablet 1 mg PO DAILY 08/01/21 12/23/21 Unknown History thiamine HCl (vitamin B1) 100 mg 1 tab PO DAILY 08/01/21 12/23/21 Unknown History tablet furosemide 40 mg tablet 40 mg PO DAILY 10/17/21 12/23/21 Unknown History spironolactone 100 mg tablet 200 mg PO DAILY 12/23/21 12/23/21 Unknown History (Aldactone) Physical Exam 2 Vital Signs: Vital Signs: Last Vital Signs Temp 97.9 F 12/24/21 07:59 Pulse 103 H 12/24/21 07:59 Resp 16 12/24/21 07:59 BP 92/56 L 12/24/21 07:59 Pulse Ox 100 12/24/21 07:59 O2 Del Method 12/24/21 07:59 BMI result Body Mass Index 32.3 frail, sarcopenic Const: General: cooperative, no acute distress and lethargic Orientation/consciousness: patient oriented x3 and lethargic Eyes: General: appearance normal, both eyes and all related structures Resp: Effort & Inspection: normal respiratory effort Auscultation: clear to auscultation bilaterally Cardio: Rate: regular rate Rhythm: regular rhythm GI: Other: Abdomen distension, no significant rebound or guarding, Palpation (GI): Soft to palpation Auscultation: normal bowel sounds Skin: General skin exam: no rashes or lesions noted Neuro: General: patient oriented x3, decrease sensation to monofilament (legs to mid calves) and Unable to assess gait Cognition (Neuro): abnormal cognition (slow, slightly disconnected) Gait exam (Neuro): Unable to assess gait Motor exam (neuro): Abnormal muscle tone present Sensory Exam: Sensory deficit (Neuro) Extrem: General: Yes normal to inspection and Yes no pedal edema Psych: Appearance: disheveled Results Labs CBC & Chem 7: 12/24/21 06:45 12/24/21 06:45 Labs: Short CBC 12/23/21 12/24/21 Range/Units 19:15 06:45 WBC 9.9 5.1 (4.8-10.8) X10*3/uL Hgb 11.5 L 9.2 L (14.0-18.0) g/dl Hct 32.2 L 27.0 L (42.0-52.0) % Plt Count 98 L 45 L D (160-400) X10*3/uL BMP 12/23/21 12/23/21 12/24/21 19:15 23:56 06:45 Sodium 131 L 133 L 137 Potassium 4.7 D 4.6 4.5 Chloride 100 101 108 Carbon Dioxide 18 L 19 L 18 L BUN 51 H D 48 H 40 H Creatinine 1.50 H 1.36 1.06 Calcium 8.7 D 8.4 7.9 L Liver Function 12/23/21 12/23/21 Range/Units 19:15 23:56 Total Bilirubin 6.3 H 6.1 H (0.0-1.0) mg/dL AST 71 H 62 H (5-37) U/L ALT 50 H 41 H (0-40) U/L Alkaline Phosphatase 190 H 172 H (39-117) U/L Albumin 2.2 L 2.4 L (3.5-5.0) g/dL Microbiology Microbiology Results: Microbiology 12/23/21 23:56 Abdominal Fluid Gram Stain - Final Assessment and Plan (1) Ascites due to alcoholic cirrhosis: Status: Acute (2) SAUL (acute kidney injury): Status: Acute (3) Acute hyponatremia: Status: Acute (4) Elevated liver enzymes: Status: Acute (5) Non-compliant patient: Status: Acute Plan 1/ Recurrent ascites from non compliance and progressive liver disease 2/ sarcopenia related to above 3/ peripheral neuropathy and malnutrition worsened by above issues 4/ does appear to have hepatic encephalopathy with flap on exam and slightly d isconnected conversation 5/ SAUL maybe related to hepatorenal syndrome, chronic and intravascular dep letion PLAN: 1/ hold pn diuretics, lo salt diet < 2 g day and encurage compliance with scheduled paracentesis 2/ if SAUL not improving can try albumin 25% 100 g/day in divided doses and midodrine, monitor U/O, UA, renal u/s 3/ high protein diet 1.1g/kg per day--can give via diet and protein supplements 4/ add rifaximin and cont with lactulose aiming for 2 soft stools daily 5/ check nutrients-mag, ,irons, folate vit a,e,d,k and B vitamins and replace as needed 6/ consider discussion on goals of care, his prognosis is guarded for near to immediate term, Procedures Date of Service Date of Service: 12/24/21
--- NOTE | 2021-12-24 12:53 | P.PNIM_ITS ---
Subjective Subjective Date of Service: 12/24/21 Interval History: patient feeling better after paracentesis, denies abdominal pain, no nausea no vomiting, complaining of buttock discomfort, patient denies fever chills, no nausea no vomiting, no diarrhea no other acute issues since admission Review of Systems [employer] no headache no dizziness CVS no chest pain, no palpitation Review of Systems: Yes all other systems are reviewed and are negative Physical Exam Vital Signs: Vital Signs: Last Vital Signs Temp 97.8 F 12/24/21 12:29 Pulse 107 H 12/24/21 12:29 Resp 15 12/24/21 12:29 BP 83/47 L 12/24/21 12:29 Pulse Ox 97 12/24/21 12:29 O2 Del Method 12/24/21 12:29 BMI result Body Mass Index 32.3 Const: Other: General awake alert x3 resting comfortably in no acute distress. icteric sclera Neck no JVD. CVS regular rate rhythm, Respiratory lungs clear to auscultation, no respiratory distress Gastrointestinal abdomen soft, nontender, bowel sounds audible, no no guarding , no rigidity. Extremities no edema. Neuro moving all 4 extremity speech clear. Skin bilateral buttock stage II ulcers with black eschar Objective Data Active Medications Acetaminophen (Acetaminophen 325 Mg Tablet) 650 mg PO Q12H PRN PRN Reason: Pain, Mild (Pain Scale 1-3) Docusate Sodium (Docusate Sodium 100 Mg Capsule) 100 mg PO DAILY PRN PRN Reason: Constipation Folic Acid (Folic Acid 1 Mg Tablet) 1 mg PO DAILY [facility] Last Admin: 12/24/21 10:22 Dose: 1 mg Documented By: MARILU Furosemide (Furosemide 40 Mg Tablet) 40 mg PO DAILY [facility]; Protocol Last Admin: 12/24/21 10:22 Dose: 40 mg Documented By: MARILU Magnesium Oxide (Magnesium Oxide 400 Mg Tablet) 400 mg PO BID [facility] Last Admin: 12/24/21 10: Dose: 400 mg Documented By: MARILU Ondansetron HCl (Ondansetron Hcl 4 Mg/2 Ml Vial) 4 mg IVPUSH Q8H PRN PRN Reason: Nausea and Vomiting Pharmacy Consult (Consult Rx Perform Med Rec) 1 each MISCELLANE ONCE PRN PRN Reason: Consult order Sodium Chloride (0.9 % Sodium Chloride Flush 3 Ml Syringe) 3 ml IVFLUSH QSHIFT [facility] Last Admin: 12/24/21 10:23 Dose: Not Given Documented By: MARILU Non-Admin Reason: IV Running Spironolactone (Spironolactone 25 Mg Tablet) 200 mg PO DAILY [facility]; Protocol Last Admin: 12/24/21 10:21 Dose: 200 mg Documented By: MARILU Thiamine HCl (Thiamine Hcl 100 Mg Tablet) 100 mg PO DAILY [facility] Last Admin: 12/24/21 10:22 Dose: 100 mg Documented By: MARILU Labs CBC & Chem 7: 12/24/21 06:45 12/24/21 06:45 Labs: Laboratory Results - last 24 hr 12/23/21 12/23/21 12/23/21 19:15 19:15 19:15 MCV 103.2 H MCH 36.9 H MCHC 35.7 RDW 15.8 Plt Count 98 L MPV 9.7 Immature Gran % (Auto) 0.7 H Neut % (Auto) 76.4 H Lymph % (Auto) 9.7 L [place] % (Auto) 10.1 Eos % (Auto) 2.9 Baso % (Auto) 0.2 Lymph # (Auto) 1.0 L [place] # (Auto) 1.0 Eos # (Auto) 0.3 Baso # (Auto) 0.0 Abs Immat Gran (auto) 0.07 H Absolute Neuts (auto) 7.6 Absolute Nucleated RBC 0.000 Nucleated RBC % (auto) 0.0 PT INR Anion Gap 18 Estim Creat Clear Calc 58.6 Estimated GFR 49 Random Glucose 141 H Calcium 8.7 D Magnesium 2.2 Total Bilirubin 6.3 H AST 71 H ALT 50 H Alkaline Phosphatase 190 H Ammonia B-Natriuretic Peptide Total Protein 6.9 Albumin 2.2 L Lipase 24 Peritoneal WBC Peritoneal RBC Periton Neutrophils Periton Lymphocytes Peritoneal Monocytes Peritoneal Other Cells COVID-19 (JESIKA) Negative COVID-19 Clin Com See Note 12/23/21 12/23/21 12/23/21 19:15 19:15 19:15 MCV MCH MCHC RDW Plt Count MPV Immature Gran % (Auto) Neut % (Auto) Lymph % (Auto) [place] % (Auto) Eos % (Auto) Baso % (Auto) Lymph # (Auto) [place] # (Auto) Eos # (Auto) Baso # (Auto) Abs Immat Gran (auto) Absolute Neuts (auto) Absolute Nucleated RBC Nucleated RBC % (auto) PT 29.0 H INR 2.4 H Anion Gap Estim Creat Clear Calc Estimated GFR Random Glucose Calcium Magnesium Total Bilirubin AST ALT Alkaline Phosphatase Ammonia 43 B-Natriuretic Peptide 45 Total Protein Albumin Lipase Peritoneal WBC Peritoneal RBC Periton Neutrophils Periton Lymphocytes Peritoneal Monocytes Peritoneal Other Cells COVID-19 (JESIKA) COVID-19 Clin Com 12/23/21 12/23/21 12/24/21 23:56 23:56 06:45 MCV 107.1 H MCH 36.5 H MCHC 34.1 RDW 15.8 Plt Count 45 L D MPV 9.1 L Immature Gran % (Auto) 0.4 Neut % (Auto) 66.1 Lymph % (Auto) 14.6 L [place] % (Auto) 11.8 H Eos % (Auto) 6.9 H Baso % (Auto) 0.2 Lymph # (Auto) 0.7 L [place] # (Auto) 0.6 Eos # (Auto) 0.4 Baso # (Auto) 0.0 Abs Immat Gran (auto) 0.02 Absolute Neuts (auto) 3.4 Absolute Nucleated RBC 0.000 Nucleated RBC % (auto) 0.0 PT INR Anion Gap 18 Estim Creat Clear Calc 64.7 Estimated GFR 54 Random Glucose 135 H Calcium 8.4 Magnesium Total Bilirubin 6.1 H AST 62 H ALT 41 H Alkaline Phosphatase 172 H Ammonia B-Natriuretic Peptide Total Protein 6.5 Albumin 2.4 L Lipase Peritoneal WBC 0.388 Peritoneal RBC < 0.002 Periton Neutrophils 15 Periton Lymphocytes 30 Peritoneal Monocytes 10 Peritoneal Other Cells 45 COVID-19 (JESIKA) COVID-19 Clin Com 12/24/21 06:45 MCV MCH MCHC RDW Plt Count MPV Immature Gran % (Auto) Neut % (Auto) Lymph % (Auto) [place] % (Auto) Eos % (Auto) Baso % (Auto) Lymph # (Auto) [place] # (Auto) Eos # (Auto) Baso # (Auto) Abs Immat Gran (auto) Absolute Neuts (auto) Absolute Nucleated RBC Nucleated RBC % (auto) PT INR Anion Gap 16 Estim Creat Clear Calc 83.0 Estimated GFR > 60 Random Glucose 107 Calcium 7.9 L Magnesium Total Bilirubin AST ALT Alkaline Phosphatase Ammonia B-Natriuretic Peptide Total Protein Albumin Lipase Peritoneal WBC Peritoneal RBC Periton Neutrophils Periton Lymphocytes Peritoneal Monocytes Peritoneal Other Cells COVID-19 (JESIKA) COVID-19 Clin Com Microbiology Microbiology Results: Microbiology 12/23/21 23:56 Gram Stain - Final Abdominal Fluid Assessment and Plan (1) Coagulopathy: Status: Acute (2) Non-compliant patient: Status: Acute (3) Ascites due to alcoholic cirrhosis: Status: Acute (4) SAUL (acute kidney injury): Status: Acute (5) Acute hyponatremia: Status: Acute (6) Elevated liver enzymes: Status: Acute Plan 56-year-old male with past medical history of liver cirrhosis secondary to alcohol abuse presents to the hospital with complaints of abdominal distension # abdominal Distention due to ascites with history of alcoholic liver cirrhosis improved after paracentesis fluid not consistent with SBP likely due to noncompliance not taking diuretics and skipping Q 2 weekly paracentesis continue Aldactone and Lasix await GI input # alcohol related liver cirrhosis with ascites - continue Aldactone and Lasix - no abdominal pain, no fevers, no chills continue home medications, chronically elevated LFTs 3 acute hyponatremia - likely secondary to hypervolemic hyponatremia in the setting of liver cirrhosis, sodium improved # chronic coagulopathy - likely secondary to liver cirrhosis, no evidence of bleed at this time, will give vitamin K # SAUL - improved after IV fluids, follow BMP # bilateral buttock stage II ulcers with black eschar will obtain surgical consultation, frequent position change high-protein diet , patient is mostly bed ridden due to neuropathy ambulates with walker peña and use wheel chair # hypoalbuminemia - secondary to liver disease, add protein shakes - albumin infuse x2 in the ED # chronic thrombocytopenia due to liver disease, no bleeding noted. # noncompliant patient - although patient lives at [facility], he is noncompliant and does not take his Aldactone or Lasix and is not compliant with his scheduled paracentesis that is recommended by GI to be done every 2 weeks DVT prophylaxis: SCDs need continued inpatient hospitalization for ascites for stage 2 buttock ulcers need surgery eval and to obtain further evaluation and treatment plan by GI Quality Stroke Does the patient have a stroke diagnosis?: No VTE Prior VTE?: No VTE Risk Level:: Medical - moderate - high VTE Device Contraindication: N/A - Device Ordered VTE Drug Contraindication: Treatment Not Indicated
[2021-12-24 12:57] LABS: Folate 7.1 ng/mL (> or = 4.0); Vitamin B12 1422 pg/mL (200-900)
--- NOTE | 2021-12-24 13:29 | MHC.CM.PN ---
From chart review(patient documented to be very guarded/not giving much information)- Patient lives with Significant Other and uses a cane. Home/self care is the tentative goal and CM has initiated and will follow for dc planning. Patient has received Pfizer/CovPlayrific vax x3 and his PCP is Dr. Maren Carvajal.
--- NOTE | 2021-12-24 15:55 | PC.NURSE ---
patient was incontinent of urine bed bath given and linen change ,patient fiance at bedside .
[2021-12-24] MEDS: Phytonadione (Vit K1) Oral 10 MG/ML AMPUL 5 MG PO (18:07)
--- NOTE | 2021-12-24 18:25 | PM.CNGS ---
History of Present Illness Consult details Consult date: 12/24/21 Narrative: 56-year-old male with advanced liver disease and cirrhosis, admitted last night because of increasing abdominal distension. His CAT scan she suggestive of portal hypertension, with varices as well as moderate ascites. He is actually from the [facility] but seems to be not very mobile. He has not been compliant as well with medications. He has buttock ulcers so he was referred to me. He is not very engaging at this time and seems to be hesitant to answer questions. Review of Systems Constitutional: Constitutional: Denies chills and Denies fever(s) Cardiovascular: Cardiovascular: Denies chest pain Respiratory: Respiratory: Denies cough Gastrointestinal: Gastrointestinal: Denies constipation Genitourinary: Genitourinary: Denies dysuria Neurologic: Comments: Poorly mobile [facility] Past Medical History Medical History (Updated 12/24/21 @ 18:28 by Esau Reveles MD) Alcohol abuse Ascites Diabetes Hypertension Liver cirrhosis Pressure ulcer Withdrawal seizures Family History Family History (Updated 12/24/21 @ 07:10 by Harika Baldwin MD) Other No family history of coronary artery disease Surgical History Surgical History (Updated 12/24/21 @ 07:10 by Harika Baldwin MD) No pertinent past surgical history Social History Social History Household Members: Spouse Housing: House Do you presently have visiting nurse or other home services: No Alcohol intake: former Patient Tobacco Use Status: Never used Tobacco Advance Directives Date on File: 08/13/21 service: Yes Current occupational status: unemployed Meds Allergies Allergy/AdvReac Type Severity Reaction Status Date / Time acetaminophen [From PERCOCET] Allergy Severe AGITATION Verified 11/14/21 10:09 oxycodone [From PERCOCET] Allergy Severe AGITATION Verified 11/14/21 10:09 bee pollen [Bee Stings] Allergy Mild SWELLING Verified 11/14/21 10:09 lorazepam AdvReac Unknown AGITATION Verified 11/14/21 10:09 ativan Allergy Mild unknown Uncoded 11/14/21 10:09 Active Medications: Current Medications Acetaminophen (Acetaminophen 325 Mg Tablet) 650 mg PO Q12H PRN PRN Reason: Pain, Mild (Pain Scale 1-3) Docusate Sodium (Docusate Sodium 100 Mg Capsule) 100 mg PO DAILY PRN PRN Reason: Constipation Folic Acid (Folic Acid 1 Mg Tablet) 1 mg PO DAILY [facility] Last Admin: 12/24/21 10:22 Dose: 1 mg Furosemide (Furosemide 40 Mg Tablet) 40 mg PO DAILY [facility]; Protocol Last Admin: 12/24/21 10:22 Dose: 40 mg Magnesium Oxide (Magnesium Oxide 400 Mg Tablet) 400 mg PO BID [facility] Last Admin: 12/24/21 10:22 Dose: 400 mg Ondansetron HCl (Ondansetron Hcl 4 Mg/2 Ml Vial) 4 mg IVPUSH Q8H PRN PRN Reason: Nausea and Vomiting Pharmacy Consult (Consult Rx Perform Med Rec) 1 each MISCELLANE ONCE PRN PRN Reason: Consult order Phytonadione (Phytonadione (Vit K1) Oral 10 Mg/Ml Ampul) 5 mg PO DAILY [facility] Stop: 12/26/21 09:01 Last Admin: 12/24/21 18:07 Dose: 5 mg Sodium Chloride (0.9 % Sodium Chloride Flush 3 Ml Syringe) [facility] Last Admin: 12/24/21 17:23 Dose: Not Given Spironolactone (Spironolactone 25 Mg Tablet) 200 mg PO DAILY [facility]; Protocol Last Admin: 12/24/21 10:21 Dose: 200 mg Thiamine HCl (Thiamine Hcl 100 Mg Tablet) 100 mg PO DAILY [facility] Last Admin: 12/24/21 10:22 Dose: 100 mg Home Medications Medication Instructions Recorded Confirmed Last Taken Type folic acid 1 mg tablet 1 mg PO DAILY 08/01/21 12/23/21 Unknown History thiamine HCl (vitamin B1) 100 mg 1 tab PO DAILY 08/01/21 12/23/21 Unknown History tablet Physical Exam Vital Signs: Vital Signs: Last Vital Signs Temp 98.1 F 12/24/21 17:43 Pulse 112 H 12/24/21 17:43 Resp 20 12/24/21 17:43 BP 92/50 L 12/24/21 17:43 Pulse Ox 100 12/24/21 17:43 O2 Del Method 12/24/21 17:43 BMI result Body Mass Index 32.3 Const: General: No no acute distress Resp: Effort & Inspection: normal respiratory effort Cardio: Rate: regular rate GI: Other: protuberant abdomen with ascites Back/Spine/Pelvis: Other: his buttock shows stage I-2 ulcers on both sides near the gluteal cleft, with a small 1 x 1 cm dry eschar, no pus Results Labs Result diagrams: 12/24/21 06:45 12/25/21 08:01 Labs: Abnormal lab results 12/23/21 12/23/21 12/23/21 Range/Units 19:15 19:15 19:15 RBC 3.12 L (4.60-5.80) X10*6/uL Hgb 11.5 L (14.0-18.0) g/dl Hct 32.2 L (42.0-52.0) % MCV 103.2 H (80.0-98.0) fL MCH 36.9 H (27.0-33.0) pg Plt Count 98 L (160-400) X10*3/uL MPV (9.4-12.4) fL Immature Gran % (Auto) 0.7 H (0.0-0.4) % Neut % (Auto) 76.4 H (45-73) % Lymph % (Auto) 9.7 L (20-40) % [place] % (Auto) (2-11) % Eos % (Auto) (0-4) % Lymph # (Auto) 1.0 L (1.2-4.9) X10*3/uL Abs Immat Gran (auto) 0.07 H (0.00-0.03) X10*3/uL PT 29.0 H (10.0-13.1) SEC INR 2.4 H (0.9-1.1) Sodium 131 L (135-145) mmol/L Carbon Dioxide 18 L (22-29) mmol/L BUN 51 H D (9-16) mg/dL Creatinine 1.50 H (0.5-1.4) mg/dL Random Glucose 141 H (60-115) mg/dL Calcium (8.4-10.2) mg/dL Total Bilirubin 6.3 H (0.0-1.0) mg/dL AST 71 H (5-37) U/L ALT 50 H (0-40) U/L Alkaline Phosphatase 190 H (39-117) U/L Albumin 2.2 L (3.5-5.0) g/dL Vitamin B12 (200-900) pg/mL 12/23/21 12/24/2112/24/22 Range/Units 23:56 06:45 06:45 RBC 2.52 L (4.60-5.80) X10*6/uL Hgb 9.2 L (14.0-18.0) g/dl Hct 27.0 L (42.0-52.0) % MCV 107.1 H (80.0-98.0) fL MCH 36.5 H (27.0-33.0) pg Plt Count 45 L D (160-400) X10*3/uL MPV 9.1 L (9.4-12.4) fL Immature Gran % (Auto) (0.0-0.4) % Neut % (Auto) (45-73) % Lymph % (Auto) 14.6 L (20-40) % [place] % (Auto) 11.8 H (2-11) % Eos % (Auto) 6.9 H (0-4) % Lymph # (Auto) 0.7 L (1.2-4.9) X10*3/uL Abs Immat Gran (auto) (0.00-0.03) X10*3/uL PT (10.0-13.1) SEC INR (0.9-1.1) Sodium 133 L (135-145) mmol/L Carbon Dioxide 19 L 18 L (22-29) mmol/L BUN 48 H 40 H (9-16) mg/dL Creatinine (0.5-1.4) mg/dL Random Glucose 135 H (60-115) mg/dL Calcium 7.9 L (8.4-10.2) mg/dL Total Bilirubin 6.1 H (0.0-1.0) mg/dL AST 62 H (5-37) U/L ALT 41 H (0-40) U/L Alkaline Phosphatase 172 H (39-117) U/L Albumin 2.4 L (3.5-5.0) g/dL Vitamin B12 (200-900) pg/mL 12/24/21 Range/Units 09:00 RBC (4.60-5.80) X10*6/uL Hgb (14.0-18.0) g/dl Hct (42.0-52.0) % MCV (80.0-98.0) fL MCH (27.0-33.0) pg Plt Count (160-400) X10*3/uL MPV (9.4-12.4) fL Immature Gran % (Auto) (0.0-0.4) % Neut % (Auto) (45-73) % Lymph % (Auto) (20-40) % [place] % (Auto) (2-11) % Eos % (Auto) (0-4) % Lymph # (Auto) (1.2-4.9) X10*3/uL Abs Immat Gran (auto) (0.00-0.03) X10*3/uL PT (10.0-13.1) SEC INR (0.9-1.1) Sodium (135-145) mmol/L Carbon Dioxide (22-29) mmol/L BUN (9-16) mg/dL Creatinine (0.5-1.4) mg/dL Random Glucose (60-115) mg/dL Calcium (8.4-10.2) mg/dL Total Bilirubin (0.0-1.0) mg/dL AST (5-37) U/L ALT (0-40) U/L Alkaline Phosphatase (39-117) U/L Albumin (3.5-5.0) g/dL Vitamin B12 1422 H (200-900) pg/mL Short CBC 12/23/21 12/24/21 Range/Units 19:15 06:45 WBC 9.9 5.1 (4.8-10.8) X10*3/uL Hgb 11.5 L 9.2 L (14.0-18.0) g/dl Hct 32.2 L 27.0 L (42.0-52.0) % Plt Count 98 L 45 L D (160-400) X10*3/uL BMP 12/23/21 12/23/21 12/24/21 19:15 23:56 06:45 Sodium 131 L 133 L 137 Potassium 4.7 D 4.6 4.5 Chloride 100 101 108 Carbon Dioxide 18 L 19 L 18 L BUN 51 H D 48 H 40 H Creatinine 1.50 H 1.36 1.06 Calcium 8.7 D 8.4 7.9 L Liver Function 12/23/21 12/23/21 Range/Units 19:15 23:56 Total Bilirubin 6.3 H 6.1 H (0.0-1.0) mg/dL AST 71 H 62 H (5-37) U/L ALT 50 H 41 H (0-40) U/L Alkaline Phosphatase 190 H 172 H (39-117) U/L Albumin 2.2 L 2.4 L (3.5-5.0) g/dL All other labs normal. Imaging Additional studies: Laboratory Results WBC 5.1 X10*3/uL (4.8-10.8) 12/24/21 06:45 RBC 2.52 X10*6/uL (4.60-5.80) L 12/24/21 06:45 Hgb 9.2 g/dl (14.0-18.0) L 12/24/21 06:45 Hct 27.0 % (42.0-52.0) L 12/24/21 06:45 MCV 107.1 fL (80.0-98.0) H 12/24/21 06:45 MCH 36.5 pg (27.0-33.0) H 12/24/21 06:45 MCHC 34.1 g/dl (31.0-36.0) 12/24/21 06:45 RDW 15.8 % (11.0-16.0) 12/24/21 06:45 Plt Count 45 X10*3/uL (160-400) L D 12/24/21 06:45 MPV 9.1 fL (9.4-12.4) L 12/24/21 06:45 Immature Gran % (Auto) 0.4 % (0.0-0.4) 12/24/21 06:45 Neut % (Auto) 66.1 % (45-73) 12/24/21 06:45 Lymph % (Auto) 14.6 % (20-40) L 12/24/21 06:45 [place] % (Auto) 11.8 % (2-11) H 12/24/21 06:45 Eos % (Auto) 6.9 % (0-4) H 12/24/21 06:45 Baso % (Auto) 0.2 % (0-2) 12/24/21 06:45 Lymph # (Auto) 0.7 X10*3/uL (1.2-4.9) L 12/24/21 06:45 [place] # (Auto) 0.6 X10*3/uL (0.1-1.2) 12/24/21 06:45 Eos # (Auto) 0.4 X10*3/uL (0.0-0.4) 12/24/21 06:45 Baso # (Auto) 0.0 X10*3/uL (0.0-0.2) 12/24/21 06:45 Abs Immat Gran (auto) 0.02 X10*3/uL (0.00-0.03) 12/24/21 06:45 Absolute Neuts (auto) 3.4 x10*3/uL (2.0-8.3) 12/24/21 06:45 Absolute Nucleated RBC 0.000 X10*3/uL (0.0-0.012) 12/24/21 06:45 Nucleated RBC % (auto) 0.0 /100WBC (0.0-0.2) 12/24/21 06:45 PT 29.0 SEC (10.0-13.1) H 12/23/21 19:15 INR 2.4 (0.9-1.1) H 12/23/21 19:15 Sodium 137 mmol/L (135-145) 12/24/21 06:45 Potassium 4.5 mmol/L (3.3-5.1) 12/24/21 06:45 Chloride 108 mmol/L (96-108) 12/24/21 06:45 Carbon Dioxide 18 mmol/L (22-29) L 12/24/21 06:45 Anion Gap 16 (12-20) 12/24/21 06:45 BUN 40 mg/dL (9-16) H 12/24/21 06:45 Creatinine 1.06 mg/dL (0.5-1.4) 12/24/21 06:45 Estim Creat Clear Calc 83.0 12/24/21 06:45 Estimated GFR > 60 12/24/21 06:45 Random Glucose 107 mg/dL (60-115) 12/24/21 06:45 Calcium 7.9 mg/dL (8.4-10.2) L 12/24/21 06:45 Magnesium 2.2 mg/dL (1.6-2.6) 12/23/21 19:15 Total Bilirubin 6.1 mg/dL (0.0-1.0) H 12/23/21 23:56 AST 62 U/L (5-37) H 12/23/21 23:56 ALT 41 U/L (0-40) H 12/23/21 23:56 Alkaline Phosphatase 172 U/L (39-117) H 12/23/21 23:56 Ammonia 43 umol/L (13-55) 12/23/21 19:15 B-Natriuretic Peptide 45 pg/mL (<100) 12/23/21 19:15 Total Protein 6.5 g/dL (6.5-8.0) 12/23/21 23:56 Albumin 2.4 g/dL (3.5-5.0) L 12/23/21 23:56 Lipase 24 U/L (8-78) 12/23/21 19:15 Vitamin B12 1422 pg/mL (200-900) H 12/24/21 09:00 Folate 7.1 ng/mL (> or = 4.0) 12/24/21 09:00 Peritoneal WBC 0.388 X10*3/uL 12/23/21 23:56 Peritoneal RBC < 0.002 X10*6/uL 12/23/21 23:56 Periton Neutrophils 15 % 12/23/21 23:56 Periton Lymphocytes 30 % 12/23/21 23:56 Peritoneal Monocytes 10 % 12/23/21 23:56 Peritoneal Other Cells 45 % 12/23/21 23:56 COVID-19 (JESIKA) Negative (Negative) 12/23/21 19:15 COVID-19 Clin Com See Note 12/23/21 19:15 Impressions Abdomen/Pelvis CT 12/23/21 20:26 IMPRESSION: There is evidence of cirrhosis and portal hypertension as evidenced by nodular, cirrhotic liver, gastroesophageal varices, and moderate ascites as noted above. There is increased attenuation throughout the mesentery which could relate to portal hypertension and nonspecific mildly prominent mesenteric lymph nodes. Colonic diverticulosis, predominantly right-sided without evidence of diverticulitis. Punctate calcifications at the upper and lower pole of the right kidney as well as at the lower pole the left kidney either represent nonobstructing calculi versus vascular calcifications. The appendix is not definitively visualized. If there are clinical concerns for appendicitis, repeat study with contrast could be performed. Fleischner guidelines were followed. Assessment and Plan (1) Pressure ulcer: Status: Acute Plan He has pressure ulcers on the buttock on both side described above. This is secondary to his being poorly mobile. He also has cirrhosis and hypoalbuminemia. There is note of a small by 1 cm dry eschar. I will bluntly debride this I am going to follow his INR as he is coagulopathic at this time. In the meantime, he should not stay in 1 position for more than 2 hours. I have encouraged him to change position in bed as often as he can. I will therefore follow along while he is in the hospital. He does have multiple medical issues as well. Procedures Date of Service Date of Service: 12/24/21
[2021-12-24] MEDS: 0.9 % Sodium Chloride Flush 3 ML SYRINGE IVFLUSH (21:14)
--- NOTE | 2021-12-24 21:28 | PC.NURSE ---
Pt A&OX3. Pleasant and cooperative. Lethargic answers to voice. Very weak. [place] HERNANDEZ 84/52. Dr Baldwin notified. Pt's BP's have been running low. Abdomen distended and firm. Dressing on abdomen-CD&I. Stage II on buttocks-NELDA. Pt denies pain, N/V/D. Incontinent of urine. Will continue to monitor. Bed alarm on for safety.
[2021-12-24] MEDS: Lactated Ringers 1,000 ML 999 ML IV (21:56)
[2021-12-25] VITALS (8 sets, daily range): BP systolic 85–98; BP diastolic 50–67; PULSE 79–114; RESP 15–20; TEMP 36.1–36.9; O2SAT 96–100
--- NOTE | 2021-12-25 04:25 | PC.NURSE ---
PT SOILED WITH URINE, PT GIVEN IBIS CARE, BED PAD CHANGED WELL. PT GIVEN WARM BLANKET
--- NOTE | 2021-12-25 06:05 | PC.NURSE ---
PT CHECKED FOR INCONTINENCE PT DRY, PT REPOSITIONED TO THE LEFT SIDE
[2021-12-25] MEDS: Thiamine HCL 100 MG TABLET PO (08:29)
[2021-12-25] MEDS: Folic Acid 1 MG TABLET PO (08:29)
[2021-12-25] MEDS: Albumin Human 25 % 100 ML IV ×2 (08:29→09:18)
[2021-12-25] MEDS: Magnesium Oxide 400 MG TABLET PO ×2 (08:29→19:46)
[2021-12-25 08:36] LABS: Alanine Aminotransferase 26 U/L (0-40); Albumin Level 2.9 g/dL (3.5-5.0); Alkaline Phosphatase 127 U/L (39-117); Anion Gap 13 (12-20); Aspartate Amino Transferase 41 U/L (5-37); Bilirubin Direct 1.8 mg/dL (0.0-0.5); Blood Urea Nitrogen 25 mg/dL (9-16); Calcium 8.2 mg/dL (8.4-10.2); Carbon Dioxide 22 mmol/L (22-29); Chloride 105 mmol/L (96-108); Creatinine Clr Calc Pharmacy 95.6; Estimated Glomerular Filt Rate > 60; Glucose Random 135 mg/dL (60-115); Sodium 136 mmol/L (135-145); Total Protein 5.7 g/dL (6.5-8.0)
[2021-12-25] MEDS: Phytonadione (Vit K1) Oral 10 MG/ML AMPUL 5 MG PO (08:44)
[2021-12-25] MEDS: Lactulose 20 GM/30 ML SOLUTION PO ×2 (08:46→19:46)
--- NOTE | 2021-12-25 15:27 | HO.PM.IMPN ---
Subjective Subjective Date of Service: 12/25/21 Interval History: Offers no acute complaints this morning denies abdominal pain feeling cold, resistant to be examined, no acute overnight issues. 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 awake tremaine rt x3 resting comf ortably in no acut e distress.? icter ic sclera Neck no JVD. CVS? regular rate rhythm, Respi ratory lungs clear to auscultation, no respiratory dis tress Gastrointest inal abdomen soft, nontender, bowel sounds audible, no guarding , no rig idity. Extremities no edema. Neuro m oving all 4 extrem ity speech clear, Bilateral fine ramesh d tremors Skin? bi lateral buttock st age II ulcers with black eschar unch anged Objective Data Active Medications Acetaminophen (Acetaminophen 325 Mg Tablet) 650 mg PO Q12H PRN PRN Reason: Pain, Mild (Pain Scale 1-3) Docusate Sodium (Docusate Sodium 100 Mg Capsule) 100 mg PO DAILY PRN PRN Reason: Constipation Folic Acid (Folic Acid 1 Mg Tablet) 1 mg PO DAILY [facility] Last Admin: 12/25/21 08:29 Dose: 1 mg Documented By: DANNY Lactulose (Lactulose 20 Gm/30 Ml Solution) 20 gm PO BID [facility] Last Admin: 12/25/21 08:46 Dose: 20 gm Documented By: DANNY Magnesium Oxide (Magnesium Oxide 400 Mg Tablet) 400 mg PO BID [facility] Last Admin: 12/25/21 08:29 Dose: 400 mg Documented By: DANNY Ondansetron HCl (Ondansetron Hcl 4 Mg/2 Ml Vial) 4 mg IVPUSH Q8H PRN PRN Reason: Nausea and Vomiting Pharmacy Consult (Consult Rx Perform Med Rec) 1 each MISCELLANE ONCE PRN PRN Reason: Consult order Phytonadione (Phytonadione (Vit K1) Oral 10 Mg/Ml Ampul) 5 mg PO DAILY [facility] Stop: 12/26/21 09:01 Last Admin: 12/25/21 08:44 Dose: 5 mg Documented By: DANNY Sodium Chloride (0.9 % Sodium Chloride Flush 3 Ml Syringe) 3 ml IVFLUSH QSHIFT [facility] Last Admin: 12/25/21 08:41 Dose: Not Given Documented By: DANNY Non-Admin Reason: IV Running Thiamine HCl (Thiamine Hcl 100 Mg Tablet) 100 mg PO DAILY [facility] Last Admin: 12/25/21 08:29 Dose: 100 mg Documented By: DANNY Labs CBC & Chem 7: 12/24/21 06:45 12/25/21 08:01 Labs: Laboratory Results - last 24 hr 12/25/21 08:01 Anion Gap 13 Estim Creat Clear Calc 95.6 Estimated GFR > 60 Random Glucose 135 H Calcium 8.2 L Total Bilirubin 4.0 H Direct Bilirubin 1.8 H AST 41 H ALT 26 Alkaline Phosphatase 127 H D Total Protein 5.7 L Albumin 2.9 L D Microbiology Microbiology Results: Microbiology 12/23/21 23:56 Gram Stain - Final Abdominal Fluid Anaerobic Culture - Preliminary No growth to date. Body Fluid Culture - Preliminary No growth after 1 day Assessment and Plan (1) Coagulopathy: Status: Acute (2) Non-compliant patient: Status: Acute (3) Ascites due to alcoholic cirrhosis: Status: Acute (4) SAUL (acute kidney injury): Status: Acute (5) Acute hyponatremia: Status: Acute (6) Elevated liver enzymes: Status: Acute Plan 56-year-old male with past medical history of liver cirrhosis secondary to alcohol abuse presents to the hospital with complaints of abdominal distension # abdominal Distention Resolved after paracentesis, recurrent ascites with history of alcoholic liver cirrhosis , fluid not consistent with SBP likely due to noncompliance not taking diuretics and skipping Q 2 weekly paracentesis Will hold Aldactone and Lasix due to low blood pressure will resume medications low-dose from tomorrow # alcohol related liver cirrhosis with ascites - hold Aldactone and Lasix as above - no abdominal pain, no fevers, no chills Total bili/lfts trending down Seen by GI they recommended low-salt diet, patient not on lactulose therefore will start lactulose and hold off on Xifaxamin, due to low albumin Will give IV albumin 25 g x 2 and placed on Ensure t.i.d. Patient has normal B12 and folate will recommend close outpatient follow-up by GI 3 acute hyponatremia - likely secondary to hypervolemic hyponatremia in the setting of liver cirrhosis, sodium improved # chronic coagulopathy - likely secondary to liver cirrhosis, no evidence of bleed at this time, will give vitamin K # SAUL - improved after IV fluids, follow BMP # bilateral buttock stage II ulcers with black eschar will obtain surgical consultation, frequent position change high-protein diet , patient is mostly bed ridden due to neuropathy ambulates with walker peña and use wheel chair Case discussed with Dr. Reveles he will continue to follow patient, follow INR at a.m. if need debridement # hypoalbuminemia - secondary to liver disease, add protein shakes/give IV albumin # chronic thrombocytopenia due to liver disease, no bleeding noted. # noncompliant patient - although patient lives at [facility], he is noncompliant and does not take his Aldactone or Lasix and is not compliant with his scheduled paracentesis that is recommended by GI to be done every 2 weeks DVT prophylaxis: SCDs need continued inpatient hospitalization hypotension,tachycardia, hypoalbuminemia and for stage 2 buttock ulcers need surgery eval Quality Stroke Does the patient have a stroke diagnosis?: No VTE Prior VTE?: No VTE Risk Level:: Medical - moderate - high VTE Device Contraindication: N/A - Device Ordered VTE Drug Contraindication: Treatment Not Indicated
[2021-12-25 16:19] LABS: INTERNATIONAL NORM RATIO 2.4 (0.9-1.1); Prothrombin Time 28.8 SEC (10.0-13.1)
[2021-12-25] MEDS: 0.9 % Sodium Chloride Flush 3 ML SYRINGE IVFLUSH (23:34)
[2021-12-26 00:46] LABS: Glucose, Whole Blood 172 mg/dL (60-115)
[2021-12-26 04:00] VITALS: BP 96/48; PULSE 107; RESP 17; TEMP 36; O2SAT 98
[2021-12-26 06:34] LABS: INTERNATIONAL NORM RATIO 2.3 (0.9-1.1); Prothrombin Time 27.3 SEC (10.0-13.1)
[2021-12-26 06:47] VITALS: BP 111/56; PULSE 104; RESP 18; TEMP 35.5; O2SAT 96
[2021-12-26 07:09] LABS: Glucose, Whole Blood 118 mg/dL (60-115)
[2021-12-26] MEDS: Magnesium Oxide 400 MG TABLET PO (07:34)
[2021-12-26] MEDS: Folic Acid 1 MG TABLET PO (07:34)
[2021-12-26] MEDS: Phytonadione (Vit K1) Oral 10 MG/ML AMPUL 5 MG PO (07:34)
[2021-12-26] MEDS: Thiamine HCL 100 MG TABLET PO (07:34)
[2021-12-26] MEDS: Lactulose 20 GM/30 ML SOLUTION PO (07:34)
[2021-12-26 08:17] VITALS: TEMP 36.6
[2021-12-26 11:02] VITALS: BP 105/54; PULSE 108; RESP 20; TEMP 36.4; O2SAT 99
[2021-12-26 11:11] LABS: Glucose, Whole Blood 156 mg/dL (60-115)
[2021-12-26 11:37] VITALS: BMI 32.3
--- NOTE | 2021-12-26 12:19 | P.PNGS_ITS ---
Subjective Subjective Date of Service: 12/26/21 Interval history: did not want to answer questions Physical Exam Vital Signs: Vital Signs: Last Vital Signs Temp 97.5 F 12/26/21 11:02 Pulse 108 H 12/26/21 11:02 Resp 20 12/26/21 11:02 BP 105/54 L 12/26/21 11:02 Pulse Ox 99 12/26/21 11:02 O2 Del Method 12/26/21 11:02 BMI result Body Mass Index 32.3 Const: Other: refusing to engage not answering questions Resp: Effort & Inspection: normal respiratory effort Cardio: Rate: regular rate Back/Spine/Pelvis: Other: decub ulcer on buttocks clean, Stage 1 mostly, no need for debridement Objective Data Active Medications Acetaminophen (Acetaminophen 325 Mg Tablet) 650 mg PO Q12H PRN PRN Reason: Pain, Mild (Pain Scale 1-3) Docusate Sodium (Docusate Sodium 100 Mg Capsule) 100 mg PO DAILY PRN PRN Reason: Constipation Folic Acid (Folic Acid 1 Mg Tablet) 1 mg PO DAILY [facility] Last Admin: 12/26/21 07:34 Dose: 1 mg Documented By: YEISON Lactulose (Lactulose 20 Gm/30 Ml Solution) 20 gm PO BID [facility] Last Admin: 12/26/21 07:34 Dose: 20 gm Documented By: YEISON Magnesium Oxide (Magnesium Oxide 400 Mg Tablet) 400 mg PO BID [facility] Last Admin: 12/26/21 07:34 Dose: 400 mg Documented By: YEISON Ondansetron HCl (Ondansetron Hcl 4 Mg/2 Ml Vial) 4 mg IVPUSH Q8H PRN PRN Reason: Nausea and Vomiting Pharmacy Consult (Consult Rx Perform Med Rec) 1 each MISCELLANE ONCE PRN PRN Reason: Consult order Sodium Chloride (0.9 % Sodium Chloride Flush 3 Ml Syringe) 3 ml IVFLUSH QSHIFT [facility] Last Admin: 12/26/21 07:34 Dose: Not Given Documented By: YEISON Non-Admin Reason: No Access Thiamine HCl (Thiamine Hcl 100 Mg Tablet) 100 mg PO DAILY [facility] Last Admin: 12/26/21 07:34 Dose: 100 mg Documented By: YEISON Labs CBC & Chem 7: 12/24/21 06:45 12/25/21 08:01 Labs: Laboratory Results - last 24 hr 12/25/21 12/25/21 12/26/21 15:47 19:09 05:37 PT 28.8 H 27.3 H INR 2.4 H 2.3 H POC Glucose 172 H 12/26/21 12/26/21 07:05 11:07 PT INR POC Glucose 118 H 156 H Microbiology Microbiology Results: Microbiology 12/23/21 23:56 Gram Stain - Final Abdominal Fluid Anaerobic Culture - Preliminary No growth to date. Body Fluid Culture - Final No growth after 2 days Procedures Date of Service Date of Service: 12/26/21 Progress Note: A&P Assessment and plan (1) Pressure ulcer: Status: Acute Assessment and Plan: ulcer clean no need for debridement must change position side to side every 2 hours - emphasized to pt nutritional upbuilding Time Spent With Patient Time: Total time spent is greater than 50% in coordination of care (as documented) at patient's floor/unit and/or counseling patient: Quality Stroke Does the patient have a stroke diagnosis?: No VTE Prior VTE?: No VTE Risk Level:: Medical - moderate - high VTE Device Contraindication: N/A - Device Ordered VTE Drug Contraindication: Treatment Not Indicated
--- NOTE | 2021-12-26 12:28 | MHC.CM.PN ---
DESPITE PREVIOUS NOTES, PATIENT IS IN [facility] IS RETURN TODAY HCP (IN ROOM) AND RN AWARE OF PLAN
--- NOTE | 2021-12-26 12:44 | MHC.SL.SWA ---
Addendum entered and electronically signed by Guadalupe Wong MA, CCC-HAZARDOUS MATERIAL SPECIALIST 12/26/21 19:20: D.S. Original Note: Speech Pathologist Impression: Pharyngeal Phase Dysphagia Dysphasia Diet Status: Downgrade liquids Liquid Consistency and Strategies for Safe Swallow: Liquid Intake Recommendation: Honey Thick Liquid Intake Strategies: Small Sips No Straws Solid Food Consistency: Dietary Recommendations: Regular Additional Modifications to Solid Foods: Oral Medication Intake: Crushed with Puree Please contact the pharmacy regarding appropriate crushable or liquid drug formulations that are available whenever modified delivery is recommended. Compensatory Strategies and Precautions to be Taken for Safe Swallow: Upright (90 deg) No Straw Small Bites and Sips Rate of Ingestion Change Supervision While Eating and Drinking for Safe Swallow: Intermittent Supervision Swallowing Recommended Treatments: Compens. Strategy Educat. Recommendation for Speech: Outpatient Speech Therapy Inpatient Speech Therapy Modified Barium Swallow Study - Outpatient Comment: Pt was resistant but agreeable to eval. Limited PO trials but no difficulties observed with variety of solids. Honey thick liquid appears to be safest consistency, however pt expressed disinterest in the consistency. Recommend attempt at honey thick liquid. If pt refuses, liquids may need to be upgraded to ensure pt is staying hydrated. Recommend regular solids. Recommend pills crushed in puree when possible (whole in puree when not possible) d/t s/s of aspiration w/ thin liquids and reported incident of difficulty swallowing whole pills. If clinical s/s of aspiration continue to present upon thin liquid and pt is not agreeable to thickened liquids, pt may benefit from [facility] Frame Expander Clinican/Clinical Fellow: Yes: Ofelia Batres M.A., CF-cyber policy and strategy planner Supervisory Statement: I have reviewed and agree with the student/clinical fellow's documentation: Speech Language Pathologist:
--- NOTE | 2021-12-26 12:46 | PM.DS ---
DS: Providers Provider Date of Service: 12/26/21 Date of admission: 12/23/21 23:45 Primary care physician: Maren Carvajal MD Consults: 12/23/21 23:45 Consult to Gastroenterology Routine Consulting Provider: Chucky Hutchison Reason for consultation: Ascites,liver cirrhosis Has provider been notified: No 12/24/21 13:22 Consult to General Surgery Routine Consulting Provider: Esau Reveles Reason for consultation: buttock stage 2 with black eschar Has provider been notified: No DS: Diagnosis Discharge Diagnosis (1) Pressure ulcer: Status: Acute DS: Summary Hospital Course Hospital Course: history of presenting illness Date of Service: 12/23/21 Chief Complaint: abd distension 56-year-old male with past medical history of alcoholic liver cirrhosis, history of ascites, diabetes, hypertension presents to the hospital with complaints of abdominal distension.? Patient has flat affect, and very guarded, not giving me much history, after pole every answer out of him with probing and constant repeating of my questions.? He states that s he has increasing abdominal distension for the past few days, denies any abdominal pain, no fever or chills.? Denies any nausea or vomiting, no diarrhea or constipation.? And no lower extremity edema.? Denies any urinary symptoms.? According to a note done by GI doctor son, patient has history of decompensated liver cirrhosis with ascites and thrombocytopenia, patient was supposed to be on Aldactone and Lasix, as well as a low-sodium diet, and scheduled paracentesis every 2 weeks, patient appears to be very noncompliant with medications as well as paracentesis. On arrival to the ED patient hemodynamically stable Labs are significant for WBC count of 9.9, hemoglobin of 11.5, hematocrit 32.2, MCV of 103.2, PT of 29, INR of 2.4, sodium of 131, creatinine of 1.5 with a baseline of 0.76, total bili of 6.3, AST of 71, ALT 50, alk-phos of 190, albumin of 2.2, Patient underwent diagnostic as well as therapeutic paracentesis.? No evidence of SBP on results. Abdominal pelvic CT shows evidence of cirrhosis and portal hypertension as evidenced by nodular cirrhotic liver, there is gastroesophageal varices, moderate ascites, Patient will be admitted for further management hospital course 56-year-old male with past medical history of liver cirrhosis secondary to alcohol abuse presents to the hospital with complaints of abdominal distension # abdominal Distention patient admitted to medical floor underwent paracentesis in ED 5 L of fluid was removed, fluid studies not consistent with SBP, patient with history of recurrent ascites with history of alcoholic? liver cirrhosis , patient noncompliant with home diuretics and has been recommended Q 2 weekly paracentesis, diuretics were restarted with patient was noted to have low blood pressures therefore dose of Lasix and Aldactone has been reduced for better compliance and tolerance recommend to follow Q 2 weekly paracentesis and close outpatient follow-up with Dr. Sykes ? ? # alcohol related liver cirrhosis with ascites, patient had no abdominal pain no fevers no chills LFTs are trending down patient was seen in consultation by Dr. Ayala he recommended high-protein diet close monitoring of electrolytes and recommend replacement of vitamin deficiency patient has normal B12 and folic acid level, patient has been started on lactulose 20 g b.i.d. monitor for diarrhea if noted to have diarrhea hold lactulose otherwise increase dose of lactulose to ensure 1-2 bowel movement per day, recommend and show can t.i.d. patient also noted to have hypoalbuminemia and coagulopathy treated with vitamin K 5 mg x 3 dosages INR remains elevated at 2.4 patient seen by speech therapy since noted to have coughing with whole pills therefore they recommend pills crushed in pureed and also recommended honey thick liquids but patient is not interested therefore needs to be evaluated for upgrading so patient has good fluid intake # acute hyponatremia- likely secondary to hypervolemic hyponatremia in the setting of liver cirrhosis, sodium improved # SAUL- improved after IV fluids, follow BMP outpatient # bilateral buttock stage II ulcers with black eschar patient evaluated by General surgery they recommend high-protein diet and frequent position change, no debridement recommended #? chronic thrombocytopenia due to liver disease, no bleeding noted. spoke with patient's fiancee at bedside she is the healthcare proxy discuss poor prognosis with her she is aware and will discuss with patient. Time Spent with Patient Time attestation: Total time spent providing and/or coordinating discharge services: Discharge coordination time: Greater than 30 minutes Quality: Safe Use of Opioids Does Pt have an Active Cancer Diagnosis on the Problem List?: No Quality: Stroke Does the patient have a stroke diagnosis?: No Physical Exam Vital Signs: Vital Signs: Last Vital Signs Temp 97.5 F 12/26/21 11:02 Pulse 108 H 12/26/21 11:02 Resp 20 12/26/21 11:02 BP 105/54 L 12/26/21 11:02 Pulse Ox 99 12/26/21 11:02 O2 Del Method 12/26/21 11:02 BMI result Body Mass Index 32.3 Const: Other: General? awake alert x3 in no acute distress, patient wants to be left alone not cooperative in providing history.? icteric sclera Neck no JVD. CVS? regular rate rhythm, Respiratory lungs clear to auscultation, no respiratory distress Gastrointestinal abdomen soft, nontender, bowel sounds audible, no guarding , no rigidity. Extremities no edema. Neuro moving all 4 extremity speech clear. Skin? bilateral buttock stage 1/II ulcers , no drainage DS: Data Data Completed and Pending Completed studies during hospitalization [Text1]: Procedures Detoxification Services for Substance Abuse Treatment (08/01/21) Drainage of Peritoneal Cavity, Percutaneous Approach (08/01/21) Labs on day of discharge: Laboratory Results - last 24 hr 12/25/21 12/25/21 12/26/21 15:47 19:09 05:37 PT 28.8 H 27.3 H INR 2.4 H 2.3 H POC Glucose 172 H 12/26/21 12/26/21 07:05 11:07 PT INR POC Glucose 118 H 156 H Preliminary micro results at discharge 12/23/21 23:56 Anaerobic Culture - Preliminary Abdominal Fluid No growth to date. Discharge Plan Discharge Anticipated Discharge Date/Time: 12/26/21 12:34 Patient Disposition: Xfer [facility] Discharge Diagnosis: abdominal distension acute hyponatremia alcohol related liver cirrhosis with ascites acute kidney injury bilateral buttock stage II ulcers hypoalbuminemia Referrals: Maren Carvajal MD [Primary Care Provider] - 1 Week Discharge Medications: New lactulose 20 gram/30 mL Solution 20 g PO BID Qty: 1500 0RF spironolactone [Aldactone] 50 mg tablet 50 mg PO DAILY Qty: 30 0RF furosemide [Lasix] 20 mg tablet 20 mg PO DAILY Qty: 30 0RF Continued folic acid 1 mg Tablet 1 mg PO DAILY thiamine HCl (vitamin B1) 100 mg tablet 1 tab PO DAILY magnesium oxide 400 mg (241.3 mg magnesium) Tablet 400 mg PO BID Qty: 1 0RF Discontinued spironolactone [Aldactone] 100 mg tablet 200 mg PO DAILY furosemide 40 mg tablet 40 mg PO DAILY Discharge Orders: Discharge Order (Routine); Ordered 12/26/21 Ordered By: Marcio Reich Diet: high protein diet Activity on Discharge: As tolerated Stand Alone Forms: Patient Portal Discharge page Care Plan Goals: abdominal distension resolved status post paracentesis, lactulose 20 g bid started hold for more than 2 bowel movements per day, otherwise increase dose of lactulose to 20 g t.i.d. if noted to have no bowel movements dose of Lasix and Aldactone reduced to avoid hypotension and to ensure compliance need frequent position change for stage II bilateral buttock ulcer recommend high-protein diet around 100 g daily, recommend Ensure t.i.d. patient seen by speech therapy they recommend pills crushed in puree when possible since patient noted to have difficulty swallowing whole pills speech therapy also recommend honey thick liquid if patient refuses liquids may need to be upgraded to ensure patient is staying hydrated Health Concerns: as above Plan of Treatment: outpatient follow-up with Dr. Boss, outpatient paracentesis as previously ordered Assessment: as above
[2021-12-26 13:12] LABS: COVID-19 Test Positive (Negative); IDNOW Serial# 16C4AD1C
--- NOTE | 2021-12-26 14:36 | MHC.CM.PN ---
DP: PT MEDICALLY CLEARED TO RETURN TO [facility]. COVID + TEST RESULT REPORTED TO [facility], STILL ABLE TO ACCEPT BACK. RN MADE AWARE OF DC. BLS BOOKED FOR 16:30 WITH [facility].
[2021-12-26 16:41] VITALS: BP 108/56; PULSE 110; RESP 15; TEMP 37.1; O2SAT 96
[2021-12-26 16:56] LABS: Glucose, Whole Blood 145 mg/dL (60-115)
== END 2021-12-26 17:14 | disposition skilled nursing facility (03) | DRG 280 ==
LOC: HO.ED 12-24 00:23 → HO.EDOVER 12-24 00:40 → HO.S3 12-25 15:46
PROVIDERS: Physician Assistant; Admitting Provider Internal Medicine; Emergency Provider Emergency Medicine; PCP Internal Medicine; Visit Provider Hospitalist
DX: K70.31 Alcoholic cirrhosis of liver with ascites (principal); K76.7 Hepatorenal syndrome; U07.1 COVID-19; D68.4 Acquired coagulation factor deficiency; L89.312 Pressure ulcer of right buttock, stage 2; K76.6 Portal hypertension; E87.1 Hypo-osmolality and hyponatremia; E88.09 Other disorders of plasma-protein metabolism, not elsewhere classified; L89.322 Pressure ulcer of left buttock, stage 2; N17.9 Acute kidney failure, unspecified; Z91.14 Patient's other noncompliance with medication regimen; Z91.030 Bee allergy status; Z88.5 Allergy status to narcotic agent; Z88.6 Allergy status to analgesic agent; Z88.8 Allergy status to other drugs, medicaments and biological substances; Z79.899 Other long term (current) drug therapy
CPT/HCPCS: 36415; 74176; 80048; 80053; 80076; 82140; 82607; 82746; 82947; 83690; 83735; 83880; 85025; 85610; 87070; 87073; 87205; 87635; 89051; 92610; 93005; 99285; J2405; P9047

== ENCOUNTER 2022-01-28 12:22 | Day surgery (SDC) | payer MEDICAID, SELFPAY ==
--- NOTE | ~2022-01-28 | US_ITS ---
EXAMINATION: US-GUIDED PARACENTESIS CLINICAL INFORMATION: Ascites. COMPARISON: Previous CT 12/23/2021. TECHNIQUE: Procedure and risks and benefits including bleeding, infection and low blood pressure were discussed with the patient and informed consent was obtained. The right lower quadrant was prepped and draped in the usual sterile fashion. The skin and soft tissues were anesthetized with 1% lidocaine plain. Using ultrasound guidance and a 5-German one-stick needle, access to the ascitic fluid was obtained. 13.9 liters of clear yellow fluid was removed. No diagnostic specimen was sent. FINDINGS: There is a large amount of ascites. US/US paracentesis abd w/image IMPRESSION: Ultrasound-guided paracentesis.
[2022-01-28 09:27] VITALS: BMI 29.8
[2022-01-28 12:46] LABS: MANUAL DIFF FLAG NO
[2022-01-28 12:53] LABS: Basophils Absolute Auto 0.1 X10*3/uL (0.0-0.2); Basophils Percent Auto 1.3 % (0-2); Eosinophils Absolute Auto 0.1 X10*3/uL (0.0-0.4); Eosinophils Percent Auto 1.3 % (0-4); Hematocrit 28.9 % (42.0-52.0); Hemoglobin 9.8 g/dl (14.0-18.0); Imm Gran Abs Auto 0.02 X10*3/uL (0.00-0.03); Imm Gran Pct Auto 0.3 % (0.0-0.4); Lymphocytes Absolute Auto 1.1 X10*3/uL (1.2-4.9); Lymphocytes Percent Auto 15.9 % (20-40); Mean Corpuscular HGB Conc 33.9 g/dl (31.0-36.0); Mean Corpuscular Hemoglobin 36.3 pg (27.0-33.0); Monocytes Absolute Auto 0.8 X10*3/uL (0.1-1.2); Monocytes Percent Auto 10.6 % (2-11); Neutrophils Absolute Auto 5.1 x10*3/uL (2.0-8.3); Neutrophils Percent Auto 70.6 % (45-73); Platelet Count 115 X10*3/uL (160-400); White Blood Count 7.2 X10*3/uL (4.8-10.8)
[2022-01-28 12:59] LABS: INTERNATIONAL NORM RATIO 1.6 (0.9-1.1)
[2022-01-28 13:02] LABS: Partial Thromboplastin Time 35.6 SEC (26.0-36.4)
[2022-01-28 13:28] LABS: Glucose, Whole Blood 167 mg/dL (60-115)
--- NOTE | 2022-01-28 13:59 | HO.RADPN ---
RADIOLOGY Narrative Narrative: RLQ paracentesis using 5 fr catheter. Large volume clear yellow fluid removed. 2 bottles Albumin given. No specimen sent.
[2022-01-28] MEDS: Lidocaine HCl 1 % MPF 5 ML VIAL 10 ML SUBCUT (15:07)
[2022-01-28 15:15] VITALS: BP 100/57; PULSE 112; RESP 18; TEMP 36.6; O2SAT 100
[2022-01-28 15:30] VITALS: BP 99/55; PULSE 113; RESP 18; O2SAT 100
[2022-01-28 15:45] VITALS: BP 100/58; PULSE 117; RESP 18; O2SAT 100
[2022-01-28 16:00] VITALS: BP 103/56; PULSE 112; RESP 18; TEMP 36.7; O2SAT 100
== END 2022-01-28 16:31 | disposition home or self-care (01) ==
PROVIDERS: Radiology Diagnostic Radiology; PCP Internal Medicine; Visit Provider Radiology Diagnostic Radiology
DX: R18.8 Other ascites (principal); K74.60 Unspecified cirrhosis of liver; F10.10 Alcohol abuse, uncomplicated; D69.6 Thrombocytopenia, unspecified; E11.9 Type 2 diabetes mellitus without complications; I10 Essential (primary) hypertension; R56.9 Unspecified convulsions; Z88.8 Allergy status to other drugs, medicaments and biological substances
CPT/HCPCS: 36415; 49083; 82947; 85025; 85610; 85730; P9047

== ENCOUNTER 2022-02-09 16:27 | Emergency (ER) | payer MEDICAID, SELFPAY ==
--- NOTE | ~2022-02-09 | CT_ITS ---
EXAMINATION: CT HEAD WITHOUT CONTRAST CLINICAL INFORMATION: Aggressive COMPARISON: Head CT 08/01/2021 TECHNIQUE: Contiguous axial imaging was performed from the skull base to vertex without intravenous administration of contrast. This CT examination was performed using dose optimization techniques as appropriate, variously including the following: *Automated exposure control *Adjustment of mA and/or kV according to patient size (this includes techniques or standardized protocols for targeted exams where dose is matched to indication/reason for exam; i.e. extremities or head) *Use of iterative reconstruction technique DLP: 706 mGy-cm FINDINGS: There is no evidence of acute intracranial hemorrhage or territorial infarction. No abnormal mass effect or midline shift is appreciated. Hicks-white differentiation is well preserved. No extra-axial fluid collections. The ventricular system and cortical sulci are prominent, consistent with volume loss. There are areas of low density in the periventricular and subcortical white matter, most consistent with sequelae of microvascular ischemic change. The osseous structures and soft tissues are normal. The visualized paranasal sinuses and mastoid air cells are well aerated. CT/CT head/brain wo IV con IMPRESSION: Chronic microvascular ischemic changes with no CT evidence of acute intracranial abnormality.
--- NOTE | ~2022-02-09 | CT_ITS ---
EXAMINATION: CT CHEST WITHOUT CONTRAST CLINICAL INFORMATION: Pneumonia. COMPARISON: Chest x-ray 08/09/2021 TECHNIQUE: Multidetector volumetric CT imaging of the chest was done. Axial MIP volume rendering provided. Sagittal and coronal reformatted images were obtained. This CT examination was performed using dose optimization techniques as appropriate, variously including the following: *Automated exposure control *Adjustment of mA and/or kV according to patient size (this includes techniques or standardized protocols for targeted exams where dose is matched to indication/reason for exam; i.e. extremities or head) *Use of iterative reconstruction technique DLP: 1066 mGy-cm FINDINGS: YARD JOCKEY: Expanded lungs with elevated right hemidiaphragm. LUNGS: The lungs are well-expanded and clear of acute pneumonic process. There are no pulmonary nodules, groundglass attenuation or focal atelectasis. MEDIASTINUM: The thyroid lobes are symmetrical and normal. The central trachea and the bronchi widely patent. No abnormal size mediastinal or hilar lymph nodes seen. No pericardial effusion seen. A small hiatal hernia. CORONARY ARTERY CALCIFICATION: Left coronary artery calcification is present. PLEURA: There is no pleural effusion. No pleural mass or thickening. AXILLA: No abnormal size lymph nodes seen. Suspect gynecomastia UPPER ABDOMEN: The liver is diffusely attenuated with lobulated surface and small size. There is diffuse significant ascites. OSSEOUS STRUCTURES: No aggressive lytic or sclerotic process seen. CT/CT chest wo IV con IMPRESSION: 1. No acute cardiopulmonary process seen. 2. Small hiatal hernia. 3. Cirrhotic liver with significant ascites and hepatic steatosis. Fleischner guidelines were followed.
[2022-02-09 16:44] VITALS: BP 100/56; BP 99/66; PULSE 104; PULSE 105; RESP 20; TEMP 36.1; O2SAT 100; O2SAT 98; BMI 29.8
--- OUTSIDE RECORDS SUMMARY | 2022-02-09 17:14 | XMS_ITS | Continuity of Care Document ---
:1965 Author Organization [facility] Care Team Providers Name Role Phone [facility] Unavailable Unavailable Problems Combined list of problems from Department of Defense and Veterans Affairs facilities. It does not include entries that were removed or entered in error. Problem Status Onset Problem Date of Comments Source Date Type Resolution Alcohol dependence Active Condition Jan 28 [place] CNTRL (SNOMED [place] [id number]) 2019 Ente red WSTRN By: DONALD MONTIEL [...] [facility] V65.42) [facility] Depressive disorder Active Condition [facility] Diabetes Active Condition [facility] [place] [facility] Diabetes Mellitus Type Active Condition May 17, [place] 2 (SCT [id number]) 2019 Entered By: DIALLO PARKER EN R Comment: per [facility] Family History of Active Condition [facility] other Cardiovascular [facility] Diseases [place] [facility] Fatty liver Active Condition May 17 [facility] 2019 Entered By: DIALLO PARKER EN R Comment: per [facility] Fatty Liver, Alcoholic Active Condition [facility] [place] [facility] Gout Active Condition [facility] [place] [facility] Gout (SCT [id number]) Active Condition May 17 [place] 2019 Entered By: DIALLO PARKER EN R Comment: per [facility] Hypertension Active Condition [facility] Hypertriglyceridemia Active Condition Oct 05 [place] CN[facility] 2000 Entered WSTRN By: NAGI SOLER [facility]CS ED JAWED Comment: started on gemfibrozil Mild depression Active Condition [facility] [place] [facility] NON [facility] PCP Active Condition Nov 17 [facility] 2015 Entered [facility] By: TERRY COYNE [facility] J Comment: Dr. [facility] Paulette MARIE OBESITY, UNSP Active Condition [facility] [place] [facility] Onychomycosis of Active Condition [facility] toenails [facility] [place] [facility] Thiamine Deficiency Active Condition [facility] [place] [facility] Carpal Tunnel Syndrome Inactive Condition 12/04/2004 [facility] [place] [facility] Tachycardia Inactive Condition 12/04/2004 Oct 05, [place] CNT RL 2000 Entered WSTRN By: NAGI SOLER [facility] ED JAWED Comment: secondry to tobacco chewing Oct 05, 2000 Entered By: NAGI PRETTY ED JAWED Comment: on atenalol 25mg Tobacco Use Disorder, Inactive Condition 12/04/2004 [facility] Rem[place] [facility] Diagnosis: ICD-10-CM Active Diagnosis [facility] Z71.89 Other specified [facility]N counselingwith [facility] Provider Comments: H LEO Other specified counseling [...] LUIS CHASE 1MG TAB TABLET EL J 2015 IELD BY MOUTH DAILY LISINOPRIL TAKE ONE ORAL ACTIVE LUIS CHASE 10MG TAB TABLET EL J 2016 IELD BY MOUTH DAILY MELATONIN TAKE ONE ORAL 02/05/2022 [id number] Xavier RUGGIERO JORDAN 5MG CAP/TAB CAPSULE/ 2 A A 2020 IELD TABLET BY MOUTH AT BEDTIME METFORMIN TAKE ONE ORAL ACTIVE CHASELUIS Osborne PRINGF HCL 500MG TABLET EL J 2016 IELD TAB BY MOUTH TWICE DAILY BEFORE A MEAL MULTIVITAMI TAKE ONE ORAL ACTIVE VANWAGNER 03/09/ NS TABLET LAWANDA 2004 CNTRL W/MINERALS BY MOUTH F [facility]N TAB EVERY [place] [facility] [facility] PHENOBARBIT TAKE ORAL ACTIVE CHASELUIS RINGF AL TAB 30MG BY EL J 2015 IELD MOUTH TWICE DAILY SILDENAFIL TAKE ONE ORAL ACTIVE 04/25/2022 [id number] Reggie RUSSELL NNM springF CITRATE TABLET 2 [...] to adverse to adverse 0 HC S [facility] reaction reaction (finding) (finding) PERCOCET Propensity Propensity active [place] to adverse to adverse 9 [facility] reactions reactions to drug to drug (finding) (finding) Immunizations Combined list of available immunizations from the Department of Defense and Veterans Affairs facilities. Immunization Series Date Administered Site Reaction Lot CVX Drug St atus Comments Source Given By Number Code News Clerk COVID-19 2 complet PFR; [place] (PFIZER), 2020 ed [id number]; CN TRL MRNA, LNP-S, 02 W[facility]N PF, 30 1 [place] MCG/0.3 ML SET S DOSE [facility] COVID-19 1 complet PFR; [place] (PFIZER), 2020 ed [id number]; CN TRL MRNA, LNP-S, 02 W[facility]N PF, 30 1 [place] MCG/0.3 ML SET S DOSE [facility] FLU,3 YRS complet [place] (HISTORICAL) 2018 ed Mitchell [facility] INFLUENZA, complet PCP [facility] SEASONAL, 2018 ed CNTR L INJECTABLE WST RN [place] [facility] INFLUENZA, complet Partne r: [place] INJECTABLE, 2019 ed Nyla s CNTRL QUADRIVALENT, Pharma cy. WSTRN PRESERVATIVE Adminis te [place] FREE red by: SETS JEFFREY [facility] AVELINO BRONSON (NES=[phone]). Partner 8 Lot#: [id number] Mfr: GlaxoSmit hKline; Dosage: 0.5 PNEUMOCOCCAL complet [facility] POLYSACCHARID 2018 ed CNTRL E PPV23 [facility] [place] [facility] [facility] INFLUENZA, complet Site: [facility] SEASONAL, 2018 ed Left CNTR L INJECTABLE Deltoid W [...] HCS HEP B, ADULT 2 complet [facility] 2009 ed [facility] [place] [facility] [facility] HEP B, ADULT 1 complet [facility] 2007 ed [facility] [place] [facility] [facility] FLU,3 YRS 03/09/ BANLAZMARGAR 88 complet [facility] (HISTORICAL) 2004 ET M ed C NTRL [facility] [place] [facility] [facility] FLU,3 YRS 12/29/ DEX,CYNTH 88 complet [facility] (HISTORICAL) 2002 IA T [...] For Provider Date [place] [id number] Diagnos SIENNA,SOP 08/29 V A PHONE CALL [phone] is: NASH CNTR L 5-10 MIN ICD-10- WSTRN CM [place] Z71.89 SETS Other HCS specifi ed teacher counselor ing<br/ >with Provide r Comment s: Other specifi ed teacher counselor ing [place] PRO [id number] Diagnos SIENNA,SOP 08/29 V A PHONE CALL [phone] is: HIE CNTR L 5-10 MIN ICD-10- WSTRN CM [place] Z71.89 SETS Other HCS specifi ed teacher counselor ing<br/ >with Provide r Comment s: Other specifi ed teacher counselor ing Outpatient [id number] 09/03 [facility] Encounter [id number] /2021 CN[facility] [facility] Outpatient [id number] 02/04 [facility] Encounter [id number] /2021 [facility] [facility] Outpatient [id number] 02/05 [facility] Encounter [id number] [facility]TRL [place] [facility] Outpatient [id number] 03/04 [facility] Encounter [id number] /2021 [facility] [facility] Outpatient [id number] 03/07 [facility] Encounter [id number] [facility] [facility] Outpatient [id number] 04/24 [facility] Encounter [id number] [facility] [facility] Outpatient [id number] 04/24 [facility] Encounter [id number] /2022 CN[place]L [place] [facility] Outpatient [id number] 06/25 [facility] Encounter [id number] [facility]L [place] [facility] Social History Combined list of available smoking, tobacco, and other social history from Department of Defense andVeterans Affairs facilities. Social History Response Date Comment Source Type Tobacco smoking MED CURRENT SMOKER 05/23/2019 [facility] status NHIS History of SMOKING CESSATION 05/23/2019 [facility] tobacco use MED REFUSED History of NSG CURRENT SMOKER 05/18/2019 [facility] tobacco use PAST 30 DAYS History of CURRENT SMOKELESS 12/09/2016 1 tin per 3 days [facility] tobacco use TOBACCO USER History of LIFETIME 11/18/2015 L[address] tobacco use NON-TOBACCO USER History of LIFETIME NON-SMOKER 04/14/2004 [place] [facility] tobacco use [place] [facility] History of HISTORY OF SMOKING 12/29/2002 [facility] use tobacco Apr 2000 [facility] History of HISTORY OF SMOKING 10/24/2001 ex tobaco user [place] [facility]
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
[2022-02-09 18:23] LABS: MANUAL DIFF FLAG NO
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
[2022-02-09 18:29] LABS: INTERNATIONAL NORM RATIO 1.7 (0.9-1.1); Prothrombin Time 19.6 SEC (10.0-13.1)
[2022-02-09 18:31] LABS: Basophils Absolute Auto 0.1 X10*3/uL (0.0-0.2); Basophils Percent Auto 1.3 % (0-2); Eosinophils Absolute Auto 0.1 X10*3/uL (0.0-0.4); Eosinophils Percent Auto 1.8 % (0-4); Hematocrit 26.4 % (42.0-52.0); Hemoglobin 9.3 g/dl (14.0-18.0); Imm Gran Abs Auto 0.03 X10*3/uL (0.00-0.03); Imm Gran Pct Auto 0.4 % (0.0-0.4); Lymphocytes Absolute Auto 0.9 X10*3/uL (1.2-4.9); Lymphocytes Percent Auto 11.9 % (20-40); Mean Corpuscular HGB Conc 35.2 g/dl (31.0-36.0); Mean Corpuscular Hemoglobin 36.5 pg (27.0-33.0); Mean Corpuscular Volume 103.5 fL (80.0-98.0); Mean Platelet Volume 9.5 fL (9.4-12.4); Monocytes Absolute Auto 0.9 X10*3/uL (0.1-1.2); Monocytes Percent Auto 11.9 % (2-11); Neutrophils Absolute Auto 5.6 x10*3/uL (2.0-8.3); Neutrophils Percent Auto 72.7 % (45-73); Platelet Count 103 X10*3/uL (160-400); Red Blood Count 2.55 X10*6/uL (4.60-5.80); Red Cell Distribution Width 14.6 % (11.0-16.0); White Blood Count 7.7 X10*3/uL (4.8-10.8)
[2022-02-09 18:32] LABS: Partial Thromboplastin Time 27.5 SEC (26.0-36.4)
[2022-02-09 19:48] LABS: Ammonia 53 umol/L (13-55)
[2022-02-09 20:02] LABS: Alanine Aminotransferase 35 U/L (0-40); Albumin Level 2.3 g/dL (3.5-5.0); Alkaline Phosphatase 236 U/L (39-117); Anion Gap 11 (12-20); Aspartate Amino Transferase 69 U/L (5-37); Bilirubin Total 2.5 mg/dL (0.0-1.0); Blood Urea Nitrogen 18 mg/dL (9-16); Calcium 8.7 mg/dL (8.4-10.2); Carbon Dioxide 23 mmol/L (22-29); Chloride 99 mmol/L (96-108); Creatinine Clr Calc Pharmacy 104.7; Estimated Glomerular Filt Rate > 60; Glucose Random 155 mg/dL (60-115); Potassium 5.6 mmol/L (3.3-5.1); Sodium 127 mmol/L (135-145); Total Protein 5.9 g/dL (6.5-8.0)
[2022-02-09] MEDS: Sodium Zirconium Cyclosilicate 10 GM POWD.PACK PO (20:58)
[2022-02-09] MEDS: 0.9 % Sodium Chloride 1,000 ML 999 ML IV (21:07)
--- NOTE | 2022-02-09 21:32 | PC.NURSE ---
This nurse walked into pts bedroom and the IV was displaced. This nurse will re-attempt to re-establish IV access.
--- NOTE | 2022-02-09 22:07 | PC.NURSE ---
IV access re-established. Fluids running at this time.
[2022-02-10] VITALS: BP 99/51; PULSE 101; TEMP 37; O2SAT 100
[2022-02-10 00:47] LABS: Alanine Aminotransferase 33 U/L (0-40); Albumin Level 2.3 g/dL (3.5-5.0); Alkaline Phosphatase 226 U/L (39-117); Anion Gap 10 (12-20); Aspartate Amino Transferase 64 U/L (5-37); Bilirubin Total 2.8 mg/dL (0.0-1.0); Blood Urea Nitrogen 16 mg/dL (9-16); Calcium 8.4 mg/dL (8.4-10.2); Carbon Dioxide 23 mmol/L (22-29); Chloride 101 mmol/L (96-108); Creatinine Clr Calc Pharmacy 114.6; Estimated Glomerular Filt Rate > 60; Ethanol < 10 mg/dL; Glucose Random 133 mg/dL (60-115); Sodium 129 mmol/L (135-145); Total Protein 5.9 g/dL (6.5-8.0)
--- NOTE | 2022-02-10 02:07 | PC.NURSE ---
Smart sheet completed
[2022-02-10 03:16] LABS: Amphetamine Screen Urine Not Detected (Not Detect); Barbiturates, Urine Not Detected (Not Detect); Benzodiazepines Screen Urine Not Detected (Not Detect); Cannabinoid Screen Urine POSITIVE (Not Detect); Cocaine Screen Urine Not Detected (Not Detect); Fentanyl, urine Not Detected (Not Detect); Opiate Screen Urine Not Detected (Not Detect); Phencyclidine Screen Urine Not Detected (Not Detect)
[2022-02-10 03:34] LABS: Appearance Urine Clear; Color Urine Dark Yellow; Glucose Urine UA Negative (Negative); Leukocyte Esterase Urine Trace (Negative); Nitrite Urine Negative (Negative); PH 5.5 (5.0-9.0); UMIC TRIGGER UACC YES; Urine Blood Negative (Negative); Urine Ketones Negative (Negative); Urine Protein Negative (Neg-Trace)
[2022-02-10 03:39] LABS: Bacteria Urine None Seen (None Seen); Hyaline Casts Urine 0-2 /LPF (0-2); RBC Urine 0-2 /HPF (0-2); Squamous Epithelial Cell Urine 0-2 /HPF (0-2); WBC Urine 0-5 /HPF (0-5)
[2022-02-10 03:48] VITALS: BP 88/48; PULSE 116; TEMP 36.8; O2SAT 96
--- NOTE | 2022-02-10 04:01 | PC.NURSE ---
Pt bp 88/51. Pt re-positioned with BP improvement 107/57. MD aware.
[2022-02-10 04:02] VITALS: BP 107/57; PULSE 113
--- NOTE | 2022-02-10 05:26 | PC.NURSE ---
med req completed
[2022-02-10 05:31] VITALS: BP 91/56; PULSE 113; RESP 14; TEMP 36.9; O2SAT 99
--- NOTE | 2022-02-10 05:41 | PC.NURSE ---
Patient requesting his duffel bag ( Blue 18 ), Stated he had it on the Ambulance ride here. I called Pt's Facility - [phone] Spoke with [facility]. They checked and confirmed that his bag is in his room, In his closet. Patient is aware.
[2022-02-10 08:23] VITALS: BP 97/51; PULSE 109; RESP 12; TEMP 36.8; O2SAT 99
--- NOTE | 2022-02-10 11:00 | PC.NURSE ---
PT IS A/O X 4 NO SOB/RANDA NOTED LUNGS -CTA SPEAKS IN FULL SENTENCES. HEART SOUND REGULAR. ABD OBESE/VERY DISTENDED (HX OF CIRRHOSIS) SOFT, NON-TENDER. BS X 4 QUADS. NO EDEMA NOTED.PT AWARE OF PLAN OF CARE.
--- NOTE | 2022-02-10 14:00 | PC.NURSE ---
pt's girlfriend tereso radha ([phone]) called and was updated on pt status.
[2022-02-10 14:50] VITALS: BP 90/47; PULSE 104; RESP 12; TEMP 36.4; O2SAT 99
--- NOTE | 2022-02-10 16:22 | PHA.MEDREC ---
Pharmacy Consult ? Medication Reconciliation Pharmacy has completed the medication reconciliation.
[2022-02-10 16:30] LABS: Anion Gap 11 (12-20); Blood Urea Nitrogen 13 mg/dL (9-16); Calcium 8.6 mg/dL (8.4-10.2); Carbon Dioxide 22 mmol/L (22-29); Chloride 100 mmol/L (96-108); Creatinine Clr Calc Pharmacy 132.5; Estimated Glomerular Filt Rate > 60; Glucose Random 134 mg/dL (60-115); Potassium 4.8 mmol/L (3.3-5.1); Sodium 128 mmol/L (135-145)
[2022-02-10] MEDS: Furosemide 20 MG TABLET PO (17:49)
[2022-02-10] MEDS: Spironolactone 25 MG TABLET 50 MG PO (17:49)
[2022-02-10] MEDS: Ibuprofen 400 MG TABLET PO (18:47)
[2022-02-10] MEDS: metFORMIN HCl 1,000 MG TABLET 1000 MG PO (21:28)
[2022-02-10 23:00] LABS: Anion Gap 11 (12-20); Blood Urea Nitrogen 14 mg/dL (9-16); Calcium 8.5 mg/dL (8.4-10.2); Carbon Dioxide 23 mmol/L (22-29); Chloride 99 mmol/L (96-108); Creatinine Clr Calc Pharmacy 111.6; Estimated Glomerular Filt Rate > 60; Glucose Random 171 mg/dL (60-115); Potassium 4.3 mmol/L (3.3-5.1); Sodium 129 mmol/L (135-145)
--- NOTE | 2022-02-11 04:41 | PC.NURSE ---
Assumed care of pt. at 1899. Pt. ate 100% of his meal. 2114: Pt. medicated per MAY. Pt. was incontinent of urine at this time. Pt. bedding was changed and clean gown placed on pt. Pt. currently asleep in bed and has slept for most of the night. Respirations even and unlabored. No distress noted.
--- NOTE | 2022-02-11 07:02 | PC.NURSE ---
This scenario writer assumed care at 0700.
[2022-02-11 07:19] VITALS: BP 92/49; PULSE 105; RESP 20; TEMP 36.7; O2SAT 98
[2022-02-11 07:28] LABS: Glucose, Whole Blood 126 mg/dL (60-115)
--- NOTE | 2022-02-11 07:39 | PC.NURSE ---
PT awake, eating breakfast.
[2022-02-11] MEDS: Thiamine HCL 100 MG TABLET PO (08:17)
[2022-02-11] MEDS: metFORMIN HCl 1,000 MG TABLET 1000 MG PO (08:17)
--- NOTE | 2022-02-11 08:17 | PC.NURSE ---
Meds given as documented.
[2022-02-11] MEDS: Folic Acid 1 MG TABLET PO (08:18)
[2022-02-11 08:21] VITALS: BP 119/72
[2022-02-11] MEDS: Spironolactone 25 MG TABLET 50 MG PO (08:22)
[2022-02-11] MEDS: Furosemide 20 MG TABLET PO (08:22)
--- NOTE | 2022-02-11 09:22 | PC.NURSE ---
Incontinent care provided. Reddened area observed to right Buttock. Barrier cream applied. PT repositioned. states that's been there . Significant other at bedside.
[2022-02-11 10:37] VITALS: BP 115/70; PULSE 98; RESP 20; TEMP 36.6; O2SAT 100
[2022-02-11 12:30] LABS: Osmolality Urine 347 mosm/kg (373-1093)
== END 2022-02-11 12:30 | disposition skilled nursing facility (03) ==
PROVIDERS: Nurse Practitioner Family; Physician Assistant; Emergency Provider Internal Medicine; PCP Internal Medicine
DX: R45.1 Restlessness and agitation (principal); Z91.199 Patient's noncompliance with other medical treatment and regimen due to unspecified reason; E87.1 Hypo-osmolality and hyponatremia; F43.10 Post-traumatic stress disorder, unspecified; F10.10 Alcohol abuse, uncomplicated; Y90.0 Blood alcohol level of less than 20 mg/100 ml; K74.60 Unspecified cirrhosis of liver; R18.8 Other ascites; I10 Essential (primary) hypertension; E11.9 Type 2 diabetes mellitus without complications; F12.90 Cannabis use, unspecified, uncomplicated; Z79.84 Long term (current) use of oral hypoglycemic drugs; Z79.899 Other long term (current) drug therapy
CPT/HCPCS: 36415; 70450; 71250; 80048; 80053; 80307; 81001; 82077; 82140; 82947; 83935; 84300; 85025; 85610; 85730; 96360; 99285

== ENCOUNTER → 2022-02-18 11:00 | Day surgery (SDC) | payer MEDICAID, SELFPAY ==
[2022-02-18 07:09] VITALS: BMI 29.8
--- NOTE | 2022-02-18 12:29 | PC.NURSE ---
Patient to [facility] in wheelchair - IR nurses & facility aware Pt must be transported via stretcher/ambulance due to poor mobility. Tomas Lyn aware of situation. This RN & LSZ spoke with web marketing coordinator for [place], all agreeable care to be cancelled for today & rescheduled as soon as possible with guaranteed stretcher transport for both patient & staff safely. Patient made aware of today's cancellation & that will be brought back to facility by transport services. This RN confirmed with staff at [facility] that okay for patient to receive cup of ice as thin liquid diet ordered but with strict fluid restriction. Okay per staff member. Ice cups given to patient, aware of plan.
== END ==
PROVIDERS: PCP Internal Medicine; Visit Provider Radiology Diagnostic Radiology
DX: R18.8 Other ascites (principal); Z53.29 Procedure and treatment not carried out because of patient's decision for other reasons

== ENCOUNTER 2022-02-20 07:07 | Day surgery (SDC) | payer MEDICAID, SELFPAY ==
[2022-02-20] VITALS (11 sets, daily range): BP systolic 97–110; BP diastolic 55–71; PULSE 100–109; RESP 15–19; TEMP 36.8; O2SAT 99–100; BMI 29.8
--- NOTE | ~2022-02-20 | US_ITS ---
EXAMINATION: ULTRASOUND-GUIDED PARACENTESIS CLINICAL INFORMATION: Ascites. Liver disease. COMPARISON: Ultrasound-guided paracentesis 01/28/2022. TECHNIQUE: Following explaining ultrasound-guided paracentesis procedure, benefits and risk, a written consent was obtained. Patient was placed supine on ultrasound table and preliminary ultrasound imaging was obtained. An optimal site was selected, marked, cleaned and draped in usual sterile manner. 1% lidocaine was injected into the puncture site. Through a small skin incision a short 4 Australian Yueh catheter was advanced into the right lower quadrant peritoneal space. After observing fluid return the stylet was withdrawn and catheter connected to vacuum bottle via connecting cannula. After obtaining all fluid and observing normal fluid return, the catheter was withdrawn and complete hemostasis achieved at puncture site. Simple dressing was applied at the puncture site. Patient tolerated the procedure extremely well. FINDINGS: On preliminary ultrasound imaging there is large amount of free fluid in the pelvis. Approximately 16 L of clear yellowish fluid was drained from the right lower quadrant with a 4 Australian Yueh catheter. INR was 1.7. US/US paracentesis abd w/image IMPRESSION: Excessive ultrasound-guided paracentesis performed. None of this fluid was sent to the lab.
[2022-02-20 07:36] LABS: Glucose, Whole Blood 149 mg/dL (60-115)
[2022-02-20] MEDS: Lidocaine HCl 1 % MPF 5 ML VIAL 10 ML SUBCUT (11:24)
== END 2022-02-20 13:15 | disposition home or self-care (01) ==
PROVIDERS: PCP Internal Medicine; Visit Provider Radiology Diagnostic Radiology
DX: R18.8 Other ascites (principal); K74.60 Unspecified cirrhosis of liver; F10.10 Alcohol abuse, uncomplicated; D69.6 Thrombocytopenia, unspecified; I10 Essential (primary) hypertension; E11.9 Type 2 diabetes mellitus without complications; Z79.4 Long term (current) use of insulin; Z79.899 Other long term (current) drug therapy; Z88.8 Allergy status to other drugs, medicaments and biological substances
CPT/HCPCS: 49083; 82947; P9047

== ENCOUNTER 2022-03-17 12:53 | Inpatient (IN) | payer OTHER, MEDICAID, SELFPAY ==
--- NOTE | ~2022-03-17 | XR_ITS ---
EXAMINATION: XR CHEST CLINICAL INFORMATION: Shortness of breath COMPARISON: Chest x-ray 08/09/2021 TECHNIQUE: Frontal view of the chest was obtained. FINDINGS: Elevation of the right hemidiaphragm with mild right basilar atelectasis. Lungs are otherwise clear. No airspace consolidation. No pleural effusion or pneumothorax. Normal cardiomediastinal silhouette and pulmonary vascularity. No acute osseous injury. Deformity of the right scapula, unchanged and consistent with prior fracture. XR/XR chest 1V IMPRESSION: 1. No acute pulmonary process. 2. Elevation of the right hemidiaphragm with mild right basilar atelectasis.
--- NOTE | ~2022-03-17 | US_ITS ---
EXAMINATION: ULTRASOUND-GUIDED PARACENTESIS CLINICAL INFORMATION: Ascites COMPARISON: Previous exam most recent 02/20/2022 TECHNIQUE: Procedure and risks and benefits including bleeding, infection and low blood pressure were discussed with the patient and informed consent was obtained. The right lower quadrant was prepped and draped in the usual sterile fashion. The skin and soft tissues were anesthetized with 1% lidocaine plain. Using ultrasound guidance and a 5 [place] 1 6 system, access to the ascitic fluid was obtained. Large volume clear yellow fluid was removed. Diagnostic specimen was sent as requested by the ordering physician. The procedure was performed portably in the emergency room. Patient received 5 bottles of intravenous albumin during the procedure. FINDINGS: There is a large amount of ascites. US/US paracentesis abd w/image IMPRESSION: Ultrasound-guided paracentesis.
[2022-03-17 12:59] VITALS: BP 98/63; PULSE 125; O2SAT 98
[2022-03-17 13:04] VITALS: BP 111/72; PULSE 114; RESP 16; TEMP 36.4; O2SAT 100; BMI 33.4
--- NOTE | 2022-03-17 13:16 | ECG_ITS ---
Test Reason : Weakness Blood Pressure : / mmHG Vent. Rate : 111 BPM Atrial Rate : 111 BPM P-R Int : 140 ms QRS Dur : 078 ms QT Int : 310 ms P-R-T Axes : 033 049 048 degrees QTc Int : 421 ms Sinus tachycardia Low voltage QRS Borderline ECG When compared with ECG of 24-DEC-2021 01:20, No significant change was found Referred By: Selena Thomas Electronically Signed By:JERRELL BLAIR MD
--- NOTE | 2022-03-17 13:58 | PC.NURSE ---
Addendum entered by Yoel Preston 03/17/22 15:25: note by LIGIA Diallo Original Note: pt arrived to ED incontinent of stool w dried stool on arms/legs/trunk, extensive urine scalding on trunk/legs/buttocks, bruises and scratches to right side abd, pt a&ox3, vss, attempted to obtain labs/place IV, asked additional RN to try to gain access. provider aware.
--- NOTE | 2022-03-17 14:15 | ED_ITS ---
HPI - General Adult General Chief complaint: General Medical Stated complaint: yellow skin, several wounds per EMS Time Seen by Provider: 03/17/22 13:15 Source: patient and EMS Mode of arrival: EMS History of Present Illness HPI narrative: 56-year-old male is brought in by EMS, he arrived covered in feces and as per EMS they state that he had increased weakness, lethargy and wounds on the right side. Patient was referred by visiting nurse. Patient himself denies any abdominal pain, nausea, vomiting, fevers, chills but states that his right leg hurts and that he has been scratching at. He does endorse some mild shortness of breath but denies any chest pain. Patient states he usually gets paracentesis every 7-10 days and has been over 2 weeks. Related Data Previous Rx's Medication Instructions Recorded spironolactone 50 mg tablet 50 mg PO DAILY #30 tabs 12/26/21 (Aldactone) folic acid 1 mg tablet 1 mg PO DAILY #90 tabs 03/05/22 metformin 1,000 mg tablet 1,000 mg PO BID #60 tabs 03/05/22 thiamine HCl (vitamin B1) 100 mg 100 mg PO DAILY #90 tabs 03/05/22 tablet furosemide 20 mg tablet (Lasix) 20 mg PO DAILY #30 tabs 03/06/22 Allergies Allergy/AdvReac Type Severity Reaction Status Date / Time acetaminophen [From PERCOCET] Allergy Severe AGITATION Verified 03/17/22 13:04 oxycodone [From PERCOCET] Allergy Severe AGITATION Verified 03/17/22 13:04 bee pollen [Bee Stings] Allergy Mild SWELLING Verified 03/17/22 13:04 lorazepam AdvReac Unknown AGITATION Verified 03/17/22 13:04 Review of Systems Review of Systems: Pertinent positives and negatives as stated in HPI. PMF Past Medical History Source: nursing notes reviewed Medical History Alcohol abuse Ascites Diabetes Elevated liver enzymes Hypertension Liver cirrhosis Pressure ulcer Withdrawal seizures Surgical History No pertinent past surgical history Family History Family History Other No family history of coronary artery disease Social History Social History Household Members: Spouse Housing: House Do you presently have visiting nurse or other home services: No Alcohol intake: former Patient Tobacco Use Status: Current everyday Tobacco user Tobacco use type: Smokeless Tobacco Second Hand Smoke Exposure: No Advance Directives: Yes Advance Directives Information Provided: Yes Advance Directives on File: No Advance Directives Date on File: 08/13/21 service: Yes Current occupational status: unemployed Physical Exam ED Vital Signs: Vital Signs - 24 hr 03/17/22 13:04 Temperature 97.6 F Pulse Rate 114 H Respiratory Rate 16 Blood Pressure 111/72 Pulse Oximetry 100 Oxygen Delivery Method Room Air BMI result Body Mass Index 33.4 VITAL SIGNS: Reviewed. GENERAL: Well developed, well nourished, in no acute distress. HEAD: Normocephalic/atraumatic EYES: PERRLA, EOMI, scleral icterus EARS: Ext canals without abnormality NOSE: Nares patent bilateral OROPHARYNX: no oral lesions noted, posterior pharynx clear, dry mucosa NECK: Supple, no adenopathy LUNGS: Normal breath sounds. No adventitious sounds or accessory muscle use. SpO2<100> CARDIOVASCULAR: Regular rate and rhythm without noted murmurs, no JVD or lower extremity edema. ABDOMEN: Soft,+ fluid wave, non-tender, + anasarca RIGHT HIP: There are extensive excoriations on the right hip from patient's scratching with associated weeping and surrounding erythema MUSCULOSKELETAL: No tenderness, deformities, or effusions noted on gross inspection. EXTREMITIES: No cyanosis, clubbing or edema; RIGHT LOWER EXTREMITY: The proximal portion there is extensive erythema with noted scratching associated with patient's nails, weeping. SKIN: Inspection of the skin reveals no rashes, +jaundice, poor skin turgor NEUROLOGIC: Alert and oriented x 4. Strength and sensation to light touch were grossly intact x 4. Course Course Course Narrative: This is a 56-year-old male hand on review of all investigations patient has significant abdominal ascites for which he will undergo paracentesis by Radiology, he commonly gets approximately 16 L removed. He remained afebrile and so I do not suspect again that this is any SBP. Otherwise, patient is hematologic results are chronically stable, INR is chronically stable at 1.7. P atient does have noted metabolic acidosis that is felt to be indicative of dehydration and not confident about patient's nutrition. The latter is further corroborated by the lactic acid being elevated, however IV fluids will not be administered as this is unlikely to have any bearing on underlying infection and is instead likely due to the degree of dehydration. Patient will need to undergo paracentesis and replacement with albumin prior to rehydration which should take place orally if possible. On review of vital signs although patient is noted to be tachycardic again this is attributed to hydration status as he is afebrile and although the scratched areas on his legs are erythematous and weeping this is a combination of anasarca and elevated bilirubin levels. Radiology will be doing a therapeutic paracentesis at 17:00. Medical Decision Making Medical Decision Making [facility] Narrative: This is a 56-year-old male with history of alcoholic cirrhosis and chronic liver failure who arrives in poor hygienic condition, covered in feces, EMS as well as our staff will report these findings. In addition, I have no concerns for SBP, but there is a possibility of associated cellulitis due to scratching likely associated and with elevated bilirubin levels. I have placed an order for paracentesis as patient is outside of his window for therapeutic paracentesis. Differential Diagnosis Differential Diagnoses: The differential diagnosis associated with the presentation includes Will rule Ascites, chronic liver failure, cellulitis, SAUL Admission/Observation Consideration of admission/observation: Escalation of care including admission/observation considered Consult Healthcare Provider Management of the patient was discussed with: Hospitalist I discussed this case with the hospitalist who accepts admission Lab Data [facility] Lab Attestation statement: I reviewed the patient's lab results. Please see course Section for discussion Result Diagrams: 03/17/22 14:15 03/17/22 14:15 Labs: Lab Results 03/17/22 03/17/22 03/17/22 Range/Units 14:15 14:15 14:15 WBC 8.6 (4.8-10.8) X10*3/uL RBC 3.47 L D (4.60-5.80) X10*6/uL Hgb 12.1 L D (14.0-18.0) g/dl Hct 34.9 L D (42.0-52.0) % MCV 100.6 H (80.0-98.0) fL MCH 34.9 H (27.0-33.0) pg MCHC 34.7 (31.0-36.0) g/dl RDW 15.1 (11.0-16.0) % Plt Count 118 L (160-400) X10*3/uL MPV 8.9 L (9.4-12.4) fL Immature Gran % (Auto) 0.3 (0.0-0.4) % Neut % (Auto) 77.9 H (45-73) % Lymph % (Auto) 10.1 L (20-40) % [place] % (Auto) 8.2 (2-11) % Eos % (Auto) 2.9 (0-4) % Baso % (Auto) 0.6 (0-2) % Lymph # (Auto) 0.9 L (1.2-4.9) X10*3/uL [place] # (Auto) 0.7 (0.1-1.2) X10*3/uL Eos # (Auto) 0.3 (0.0-0.4) X10*3/uL Baso # (Auto) 0.1 (0.0-0.2) X10*3/uL Abs Immat Gran (auto) 0.03 (0.00-0.03) X10*3/uL Absolute Neuts (auto) 6.7 (2.0-8.3) x10*3/uL Absolute Nucleated RBC 0.000 (0.0-0.012) X10*3/uL Nucleated RBC % (auto) 0.0 (0.0-0.2) /100WBC PT (10.0-13.1) SEC INR (0.9-1.1) Sodium 126 L (135-145) mmol/L Potassium 5.5 H D (3.3-5.1) mmol/L Chloride 99 (96-108) mmol/L Carbon Dioxide 16 L (22-29) mmol/L Anion Gap 17 (12-20) BUN 27 H D (9-16) mg/dL Creatinine 1.31 (0.5-1.4) mg/dL Estim Creat Clear Calc 68.3 Estimated GFR 57 Random Glucose 188 H (60-115) mg/dL Lactic Acid (0.5-2.0) mmol/L Calcium 9.5 D (8.4-10.2) mg/dL Total Bilirubin 3.9 H (0.0-1.0) mg/dL AST 48 H (5-37) U/L ALT 35 (0-40) U/L Alkaline Phosphatase 147 H D (39-117) U/L Ammonia 48 (13-55) umol/L Troponin I High Sens (<3.5-35.0) ng/L Total Protein 7.4 D (6.5-8.0) g/dL Albumin 2.7 L (3.5-5.0) g/dL Lipase 33 (8-78) U/L 03/17/22 03/17/22 03/17/22 Range/Units 14:15 14:15 14:15 WBC (4.8-10.8) X10*3/uL RBC (4.60-5.80) X10*6/uL Hgb (14.0-18.0) g/dl Hct (42.0-52.0) % MCV (80.0-98.0) fL MCH (27.0-33.0) pg MCHC (31.0-36.0) g/dl RDW (11.0-16.0) % Plt Count (160-400) X10*3/uL MPV (9.4-12.4) fL Immature Gran % (Auto) (0.0-0.4) % Neut % (Auto) (45-73) % Lymph % (Auto) (20-40) % [place] % (Auto) (2-11) % Eos % (Auto) (0-4) % Baso % (Auto) (0-2) % Lymph # (Auto) (1.2-4.9) X10*3/uL [place] # (Auto) (0.1-1.2) X10*3/uL Eos # (Auto) (0.0-0.4) X10*3/uL Baso # (Auto) (0.0-0.2) X10*3/uL Abs Immat Gran (auto) (0.00-0.03) X10*3/uL Absolute Neuts (auto) (2.0-8.3) x10*3/uL Absolute Nucleated RBC (0.0-0.012) X10*3/uL Nucleated RBC % (auto) (0.0-0.2) /100WBC PT 20.4 H (10.0-13.1) SEC INR 1.7 H (0.9-1.1) Sodium (135-145) mmol/L Potassium (3.3-5.1) mmol/L Chloride (96-108) mmol/L Carbon Dioxide (22-29) mmol/L Anion Gap (12-20) BUN (9-16) mg/dL Creatinine (0.5-1.4) mg/dL Estim Creat Clear Calc Estimated GFR Random Glucose (60-115) mg/dL Lactic Acid 4.3 H* (0.5-2.0) mmol/L Calcium (8.4-10.2) mg/dL Total Bilirubin (0.0-1.0) mg/dL AST (5-37) U/L ALT (0-40) U/L Alkaline Phosphatase (39-117) U/L Ammonia (13-55) umol/L Troponin I High Sens 4.1 (<3.5-35.0) ng/L Total Protein (6.5-8.0) g/dL Albumin (3.5-5.0) g/dL Lipase (8-78) U/L Independent Interpretation I performed an independent interpretation of an: EKG Interpretation: Sinus tachycardia, HR-111, no STEMI, VA/QRS/QTC is within normal limits. Radiology Impression Radiologist Impression: My interpretation is in agreement with the radiologist impression for imaging. Independent Historian Clinical information obtained from an independent historian. History obtained from or confirmed by: EMS External Record Review External record reviewed: Inpatient record and Prior outpatient labs Chronic Conditions Patient?s care impacted by: Diabetes and Other Liver cirrhosis Social Determinants Patient?s care significantly limited by Social Determinants of Health including: Inadequate housing and Other Social Determinant of Health Critical Care Time Critical Care Time Critical Care Time: Yes Total Critical Care Time: 45 Attestation: I personally attest to this time spent taking care of the patient. Discharge Plan Discharge Patient Disposition: Admitted As Inpatient Prescriptions: No Action folic acid 1 mg tablet 1 mg PO DAILY Qty: 90 2RF metformin 1,000 mg tablet 1,000 mg PO BID Qty: 60 2RF thiamine HCl (vitamin B1) 100 mg tablet 100 mg PO DAILY Qty: 90 2RF furosemide [Lasix] 20 mg tablet 20 mg PO DAILY Qty: 30 0RF spironolactone [Aldactone] 50 mg tablet 50 mg PO DAILY Qty: 30 0RF
[2022-03-17 14:21] LABS: MANUAL DIFF FLAG NO
[2022-03-17 14:22] LABS: Basophils Absolute Auto 0.1 X10*3/uL (0.0-0.2); Basophils Percent Auto 0.6 % (0-2); Eosinophils Absolute Auto 0.3 X10*3/uL (0.0-0.4); Eosinophils Percent Auto 2.9 % (0-4); Hematocrit 34.9 % (42.0-52.0); Hemoglobin 12.1 g/dl (14.0-18.0); Imm Gran Abs Auto 0.03 X10*3/uL (0.00-0.03); Imm Gran Pct Auto 0.3 % (0.0-0.4); Lymphocytes Absolute Auto 0.9 X10*3/uL (1.2-4.9); Lymphocytes Percent Auto 10.1 % (20-40); Mean Corpuscular HGB Conc 34.7 g/dl (31.0-36.0); Mean Corpuscular Hemoglobin 34.9 pg (27.0-33.0); Mean Corpuscular Volume 100.6 fL (80.0-98.0); Mean Platelet Volume 8.9 fL (9.4-12.4); Monocytes Absolute Auto 0.7 X10*3/uL (0.1-1.2); Monocytes Percent Auto 8.2 % (2-11); Neutrophils Absolute Auto 6.7 x10*3/uL (2.0-8.3); Neutrophils Percent Auto 77.9 % (45-73); Platelet Count 118 X10*3/uL (160-400); Red Blood Count 3.47 X10*6/uL (4.60-5.80); Red Cell Distribution Width 15.1 % (11.0-16.0); White Blood Count 8.6 X10*3/uL (4.8-10.8)
[2022-03-17 14:28] LABS: INTERNATIONAL NORM RATIO 1.7 (0.9-1.1); Prothrombin Time 20.4 SEC (10.0-13.1)
[2022-03-17 14:31] LABS: Ammonia 48 umol/L (13-55)
[2022-03-17 14:39] LABS: Lactic Acid 4.3 mmol/L (0.5-2.0)
[2022-03-17 14:40] LABS: Alanine Aminotransferase 35 U/L (0-40); Albumin Level 2.7 g/dL (3.5-5.0); Alkaline Phosphatase 147 U/L (39-117); Anion Gap 17 (12-20); Aspartate Amino Transferase 48 U/L (5-37); Bilirubin Total 3.9 mg/dL (0.0-1.0); Blood Urea Nitrogen 27 mg/dL (9-16); Calcium 9.5 mg/dL (8.4-10.2); Carbon Dioxide 16 mmol/L (22-29); Chloride 99 mmol/L (96-108); Creatinine Clr Calc Pharmacy 68.3; Estimated Glomerular Filt Rate 57; Glucose Random 188 mg/dL (60-115); Lipase 33 U/L (8-78); Potassium 5.5 mmol/L (3.3-5.1); Sodium 126 mmol/L (135-145); Total Protein 7.4 g/dL (6.5-8.0)
[2022-03-17 14:46] LABS: Troponin-I High Sensitivity 4.1 ng/L (<3.5-35.0)
[2022-03-17 16:19] LABS: Reflex Lactate? Lactic Acid Added
--- NOTE | 2022-03-17 16:26 | P.HPHOSP_ITS ---
History of Present Illness Date of Service: 03/17/22 Chief Complaint: found in stool 56M PMH etoh cirrhosis (reports 1 year soberiety), DM, presented after VNA found patient covered in stool. patient reports normally able to amublate with walker, reports recent progressive weakness, decreased appetite and po intake, increased abdominal distension, denies fever, chills, sob. in ED found to have significantly distended abdomen, diffuse skin excoriations, labs significant for SAUL, hyopnatremia, hyperkalemia. Review of Systems Review of Systems: Constitutional: Denies fever, denies Chills Eyes: denies blurry vision ENT: denies sore throat CVS: denies chest pain Respiratory: Denies dyspnea GI: abdominal distension : denies dysuria MSK: denies neck pain Skin: rash Neuro: denies specific motor weakness Psych: denies suicidal ideation Endocrine: denies heat/cold intolerance Hematologic: denies easy bleeding Allergy: denies hives FOR[facility]LY [facility], [facility]1983 Medical History Alcohol abuse Ascites Diabetes Elevated liver enzymes Hypertension Liver cirrhosis Pressure ulcer Withdrawal seizures Family History Other No family history of coronary artery disease Surgical History No pertinent past surgical history Social History Household Members: Spouse Housing: House Do you presently have visiting nurse or other home services: No Alcohol intake: former Patient Tobacco Use Status: Current everyday Tobacco user Tobacco use type: Smokeless Tobacco Second Hand Smoke Exposure: No Advance Directives: Yes Advance Directives Information Provided: Yes Advance Directives on File: No Advance Directives Date on File: 08/13/21 service: Yes Current occupational status: unemployed Meds Allergies Allergy/AdvReac Type Severity Reaction Status Date / Time acetaminophen [From PERCOCET] Allergy Severe AGITATION Verified 03/17/22 13:04 oxycodone [From PERCOCET] Allergy Severe AGITATION Verified 03/17/22 13:04 bee pollen [Bee Stings] Allergy Mild SWELLING Verified 03/17/22 13:04 lorazepam AdvReac Unknown AGITATION Verified 03/17/22 13:04 Active Medications: Current Medications Dextrose (Dextrose 50 % 25 Gm/50 Ml Syringe) 25 gm IVPUSH Q15M PRN; Protocol PRN Reason: per Hypoglycemia Standing Ord. Folic Acid (Folic Acid 1 Mg Tablet) 1 mg PO DAILY [facility] Glucose (Glucose Gel 15 Gm Gel..Gram.) 15 gm PO Q15M PRN; Protocol PRN Reason: per Hypoglycemia Standing Ord. Insulin Human Lispro (Insulin Lispro 100 Unit/Ml 3 Ml Vial) 0 unit SUBCUT QIDACHS [facility]; Protocol Pharmacy Consult (Consult Rx Perform Med Rec) 1 each MISCELLANE ONCE PRN PRN Reason: Consult order Rifaximin (Rifaximin 550 Mg Tablet) 550 mg PO BID [facility] Thiamine HCl (Thiamine Hcl 100 Mg Tablet) 100 mg PO DAILY [facility] Physical Exam Vital Signs and Narrative: Vital Signs: Last Vital Signs Temp 97.6 F 03/17/22 13:04 Pulse 114 H 03/17/22 13:04 Resp 16 03/17/22 13:04 BP 111/72 03/17/22 13:04 Pulse Ox 100 03/17/22 13:04 O2 Del Method 03/17/22 13:04 BMI result Body Mass Index 33.4 General: ill appearing HEENT: atraumatic Neck: normal to visual inspection CVS: S1, S2, RRR Resp: CTA bilateral Chest: non tender GI: non tender, largely distended : no CVA tenderness Skin: diffuse rashes (see pic) Extremities: edema Neuro: Oriented X3, asterixis Psych: cooperative Results Labs CBC and Chem 7: 03/17/22 14:15 03/17/22 14:15 Labs: Laboratory Results - last 24 hr 03/17/22 03/17/22 03/17/22 14:15 14:15 14:15 MCV 100.6 H MCH 34.9 H MCHC 34.7 RDW 15.1 Plt Count 118 L MPV 8.9 L Immature Gran % (Auto) 0.3 Neut % (Auto) 77.9 H Lymph % (Auto) 10.1 L [place] % (Auto) 8.2 Eos % (Auto) 2.9 Baso % (Auto) 0.6 Lymph # (Auto) 0.9 L [place] # (Auto) 0.7 Eos # (Auto) 0.3 Baso # (Auto) 0.1 Abs Immat Gran (auto) 0.03 Absolute Neuts (auto) 6.7 Absolute Nucleated RBC 0.000 Nucleated RBC % (auto) 0.0 PT INR Anion Gap 17 Estim Creat Clear Calc 68.3 Estimated GFR 57 Random Glucose 188 H Lactic Acid Calcium 9.5 D Total Bilirubin 3.9 H AST 48 H ALT 35 Alkaline Phosphatase 147 H D Ammonia 48 Troponin I High Sens Total Protein 7.4 D Albumin 2.7 L Lipase 33 03/17/22 03/17/22 03/17/22 14:15 14:15 14:15 MCV MCH MCHC RDW Plt Count MPV Immature Gran % (Auto) Neut % (Auto) Lymph % (Auto) [place] % (Auto) Eos % (Auto) Baso % (Auto) Lymph # (Auto) [place] # (Auto) Eos # (Auto) Baso # (Auto) Abs Immat Gran (auto) Absolute Neuts (auto) Absolute Nucleated RBC Nucleated RBC % (auto) PT 20.4 H INR 1.7 H Anion Gap Estim Creat Clear Calc Estimated GFR Random Glucose Lactic Acid 4.3 H* Calcium Total Bilirubin AST ALT Alkaline Phosphatase Ammonia Troponin I High Sens 4.1 Total Protein Albumin Lipase Assessment and Plan (1) Ascites: Status: Acute Plan 56M PMH etoh cirrhosis (reports 1 year soberiety), DM, presented after VNA found patient covered in stool. found to have saul, hyponatremia, large ascites, hyperkalemia alcohol cirrhosis with symptomatic ascites, and metabolic encephalopathy (hepatic) lactulose, rifaximin plan for paracentesis with albumin gi eval SAUL albumin, hold diuretics, monitor hyponatremia fluid restrict, monitor hyperkalemia hold aldactone, monitor DM hold metformin insulin lactic acidosis due to liver disease not sepsis dvt prophylaxis- mechanical due to coagulopathy full code patient with multiple electrolyte abnormalities, saul, hepatic encephalopathy, high risk for further decompensaiton due to advanced decompensated etoh cirrhosis, therefore, expected to require atleast 2 midnights inpatient Time Spent With Patient Time: Total time managing care of this patient today ____ minutes. Quality Stroke Does the patient have a stroke diagnosis?: No VTE Prior VTE?: No VTE Risk Level:: Medical - moderate - high VTE Device Contraindication: N/A - Device Ordered VTE Drug Contraindication: Treatment Not Indicated
[2022-03-17 16:52] LABS: COVID-19 Test Negative (Negative); IDNOW Serial# 16C4AD1C; IDNOW Serial# BCCEAD1C; Influenza A Negative (Negative); Influenza B2 Negative (Negative)
--- NOTE | 2022-03-17 17:04 | PHA.MEDREC ---
Pharmacy Consult ? Medication Reconciliation Pharmacy has completed the medication reconciliation. Per patient. He states gf helps him with meds and he took all meds this morning. Srinath
[2022-03-17] MEDS: Albumin Human 25 % 100 ML IV (17:20)
[2022-03-17 17:36] LABS: Glucose, Whole Blood 150 mg/dL (60-115)
[2022-03-17 17:37] VITALS: BP 108/70; PULSE 114; RESP 15; TEMP 36; O2SAT 100
[2022-03-17 17:38] VITALS: BP 108/70; PULSE 114; RESP 16; TEMP 36; O2SAT 100
[2022-03-17 17:53] LABS: ~Lactic Acid-LAB USE ONLY 4.8 mmol/L (0.5-2.0)
--- NOTE | 2022-03-17 18:01 | MHC.CM.PN ---
Pt to have paracentesis. Will completed CM interview after procedure.
[2022-03-17 19:23] LABS: Reflex Lactate? 2 Y
[2022-03-17] MEDS: Lidocaine HCl 1 % 20 ML VIAL 5 ML SUBCUT (19:34)
[2022-03-17 19:46] LABS: MN% 93.1 %; PMN% 6.9 %; WBC Peritoneal Fluid 0.044 X10*3/uL
[2022-03-17 19:50] LABS: RBC Peritoneal Fluid < 0.002 X10*6/uL
--- NOTE | 2022-03-17 20:23 | PC.NURSE ---
pt had parenthesis with a removal of 1200, notified LIGIA Diallo
[2022-03-17 20:26] LABS: ~Lactic Acid-LAB USE ONLY 4.9 mmol/L (0.5-2.0)
[2022-03-17 20:29] LABS: BF Shift QC OK YES; Lymphocyte Peritoneal Fl 40 %; Monocytes Peritoneal Fl 38 %; Neutrophils Peritoneal Fluid 8 %; Other Peritioneal Fl 14 %
--- NOTE | 2022-03-17 20:58 | MHC.CM.PN ---
Addendum entered by Deb Bui 03/17/22 21:36: [facility] not listed in [facility]. ([phone]). CM will need to verify pt status in the morning. Original Note: CM met with admitted patient with bed assignment pending. Pt had bedside paracentesis completed. Pt is very tired and unable to answer many of CM questions. Cannot tell CM his street address, but can tell CM he lives with Deann Vera. Cannot remember her telephone number or the agency that the visiting nurse comes from. Pt feels safe at home and requests home at discharge. Pt did come by ambulance, with covered in feces. CM spoke with Deann Vera/ HCP/fiance/[employer] ([phone]) via telephone. Number obtained from past admission. HCP is on file. Deann tells CM pt lives with her at [address] [place] [address]. States that he was living at [facility] ([facility]] for 1 year and he returned to her home on Feb 20. Deann doesn't feel the senior living was taking good care of him. Deann tells CM he was covered in feces because he had an accident right before the ambulance arrived. States she uses adult diapers, as pt is incontinent. Pt uses a wheelchair. Rarely uses his walker. Pt has VNA services twice a day from [facility] ([phone]) Pt also has PT services, but Deann says that just started. Deann feels she is capable of caring for patient at home. Pt had Pfizer x3. PCP is Maren Carvajal. Pt has a MOLST on file and is a full code. Pt was in the [facility], but has no [facility] services. Deann tells CM they have no transportation and patient does not have his PT 1 yet, so he will need BLS transportation home, as he cannot ambulate D/C plan: Home with continued services. Return referral placed. Will need BLS transport. CM to follow for discharge planning.
[2022-03-17 21:48] LABS: Glucose, Whole Blood 142 mg/dL (60-115)
[2022-03-17 22:16] VITALS: BP 115/64; PULSE 116; RESP 13; TEMP 36.7; O2SAT 99
[2022-03-17] MEDS: rifAXIMin 550 MG TABLET PO (22:35)
[2022-03-17] MEDS: Lactulose 20 GM/30 ML SOLUTION PO (22:35)
--- NOTE | 2022-03-17 22:42 | PC.NURSE ---
Addendum entered by Yoel Preston 03/17/22 22:43: 12L fluid drained via paracentisis, fld samples sent to lab. Original Note: pt a&ox3, vss, medicated per provider order, pt requesting snack - diabetic snack given, pt given urinal to obtain urine sample.
--- NOTE | 2022-03-17 23:26 | PC.NURSE ---
RN-RN report given to S3.
[2022-03-18 00:19] VITALS: BMI 26.4
[2022-03-18 00:27] VITALS: BP 110/56; PULSE 122; RESP 16; TEMP 36.6; O2SAT 99
[2022-03-18] MEDS: Albumin Human 25 % 100 ML IV ×3 (00:53→12:21)
[2022-03-18] MEDS: 0.9 % Sodium Chloride Flush 3 ML SYRINGE IVFLUSH ×2 (00:59→20:23)
[2022-03-18 03:45] VITALS: BP 102/58; PULSE 118; RESP 16; TEMP 36.4; O2SAT 99
[2022-03-18 06:40] LABS: Hematocrit 31.5 % (42.0-52.0); Mean Corpuscular HGB Conc 34.9 g/dl (31.0-36.0); Mean Corpuscular Hemoglobin 34.9 pg (27.0-33.0); Mean Platelet Volume 9.3 fL (9.4-12.4); Platelet Count 102 X10*3/uL (160-400); Red Blood Count 3.15 X10*6/uL (4.60-5.80)
[2022-03-18 07:23] LABS: Anion Gap 13 (12-20); Blood Urea Nitrogen 28 mg/dL (9-16); Carbon Dioxide 16 mmol/L (22-29); Chloride 99 mmol/L (96-108); Creatinine Clr Calc Pharmacy 66.6; Estimated Glomerular Filt Rate > 60; Glucose Fasting 134 mg/dL (60-99); Potassium 5.4 mmol/L (3.3-5.1); Sodium 123 mmol/L (135-145)
[2022-03-18 07:44] LABS: Glucose, Whole Blood 124 mg/dL (60-115)
--- NOTE | 2022-03-18 07:48 | HO.PM.IMPN ---
Subjective Subjective Date of Service: 03/18/22 Interval History: Seen in f/u for SAUL, hi K, low sodium, ascietes interval : peristent high k, low sodium Physical Exam Vital Signs: Vital Signs: Last Vital Signs Temp 97.5 F 03/18/22 03:45 Pulse 118 H 03/18/22 03:45 Resp 16 03/18/22 03:45 BP 102/58 L 03/18/22 03:45 Pulse Ox 99 03/18/22 03:45 O2 Del Method 03/18/22 03:45 BMI result Body Mass Index 26.4 Const: Other: General: AO X 3, no acute distress Resp: CTA bilateral CVS: S1,S2,RRR GI: +BS, NT, no distention Skin: No rash Neuro: motor grossly intact Psych: appropriate affect Objective Data Active Medications Dextrose (Dextrose 50 % 25 Gm/50 Ml Syringe) 25 gm IVPUSH Q15M PRN; Protocol PRN Reason: per Hypoglycemia Standing Ord. Folic Acid (Folic Acid 1 Mg Tablet) 1 mg PO DAILY [facility] Glucose (Glucose Gel 15 Gm Gel..Gram.) 15 gm PO Q15M PRN; Protocol PRN Reason: per Hypoglycemia Standing Ord. Albumin Human (Kedbumin 25 %) 100 mls @ 100 mls/hr IV Q6H [facility] Stop: 03/18/22 13:44 Last Admin: 03/18/22 06:44 Dose: 100 mls/hr Documented By: LUIS Insulin Human Lispro (Insulin Lispro 100 Unit/Ml 3 Ml Vial) 0 unit SUBCUT QIDACHS [facility]; Protocol Last Admin: 03/17/22 22:00 Dose: Not Given Documented By: RENETTA Non-Admin Reason: No Insulin Coverage Lactulose (Lactulose 20 Gm/30 Ml Solution) 20 gm PO BID [facility] Last Admin: 03/17/22 22:35 Dose: 20 gm Documented By: RENETTA Pharmacy Consult (Consult Rx Perform Med Rec) 1 each MISCELLANE ONCE PRN PRN Reason: Consult order Rifaximin (Rifaximin 550 Mg Tablet) 550 mg PO BID [facility] Last Admin: 03/17/22 22:35 Dose: 550 mg Documented By: RENETTA Sodium Chloride (0.9 % Sodium Chloride Flush 3 Ml Syringe) 3 ml IVFLUSH QSHIFT [facility] Last Admin: 03/18/22 07:43 Dose: Not Given Documented By: DARIA Non-Admin Reason: IV Running Thiamine HCl (Thiamine Hcl 100 Mg Tablet) 100 mg PO DAILY [facility] Labs CBC & Chem 7: 03/18/22 05:11 03/18/22 05:11 Labs: Laboratory Results - last 24 hr 03/17/22 03/17/22 03/17/22 14:15 14:15 14:15 MCV 100.6 H MCH 34.9 H MCHC 34.7 RDW 15.1 Plt Count 118 L MPV 8.9 L Immature Gran % (Auto) 0.3 Neut % (Auto) 77.9 H Lymph % (Auto) 10.1 L [place] % (Auto) 8.2 Eos % (Auto) 2.9 Baso % (Auto) 0.6 Lymph # (Auto) 0.9 L [place] # (Auto) 0.7 Eos # (Auto) 0.3 Baso # (Auto) 0.1 Abs Immat Gran (auto) 0.03 Absolute Neuts (auto) 6.7 Absolute Nucleated RBC 0.000 Nucleated RBC % (auto) 0.0 PT INR Anion Gap 17 Estim Creat Clear Calc 68.3 Estimated GFR 57 POC Glucose Random Glucose 188 H Fasting Glucose Lactic Acid Lactic Acid F/U @ 2Hr Lactic Acid F/U @ 4Hr Calcium 9.5 D Total Bilirubin 3.9 H AST 48 H ALT 35 Alkaline Phosphatase 147 H D Ammonia 48 Troponin I High Sens Total Protein 7.4 D Albumin 2.7 L Lipase 33 Peritoneal WBC Peritoneal RBC Periton Neutrophils Periton Lymphocytes Peritoneal Monocytes Peritoneal Other Cells COVID-19 (JESIKA) COVID-19 Clin Com Influenza Type A (RACHELL) Influenza Type B (RACHELL) Influenza A & B Note 03/17/22 03/17/22 03/17/22 14:15 14:15 14:15 MCV MCH MCHC RDW Plt Count MPV Immature Gran % (Auto) Neut % (Auto) Lymph % (Auto) [place] % (Auto) Eos % (Auto) Baso % (Auto) Lymph # (Auto) [place] # (Auto) Eos # (Auto) Baso # (Auto) Abs Immat Gran (auto) Absolute Neuts (auto) Absolute Nucleated RBC Nucleated RBC % (auto) PT 20.4 H INR 1.7 H Anion Gap Estim Creat Clear Calc Estimated GFR POC Glucose Random Glucose Fasting Glucose Lactic Acid 4.3 H* Lactic Acid F/U @ 2Hr Lactic Acid F/U @ 4Hr Calcium Total Bilirubin AST ALT Alkaline Phosphatase Ammonia Troponin I High Sens 4.1 Total Protein Albumin Lipase Peritoneal WBC Peritoneal RBC Periton Neutrophils Periton Lymphocytes Peritoneal Monocytes Peritoneal Other Cells COVID-19 (JESIKA) COVID-19 Clin Com Influenza Type A (RACHELL) Influenza Type B (RACHELL) Influenza A & B Note 03/17/22 03/17/22 03/17/22 16:23 16:23 17:19 MCV MCH MCHC RDW Plt Count MPV Immature Gran % (Auto) Neut % (Auto) Lymph % (Auto) [place] % (Auto) Eos % (Auto) Baso % (Auto) Lymph # (Auto) [place] # (Auto) Eos # (Auto) Baso # (Auto) Abs Immat Gran (auto) Absolute Neuts (auto) Absolute Nucleated RBC Nucleated RBC % (auto) PT INR Anion Gap Estim Creat Clear Calc Estimated GFR POC Glucose Random Glucose Fasting Glucose Lactic Acid Lactic Acid F/U @ 2Hr 4.8 H* Lactic Acid F/U @ 4Hr Calcium Total Bilirubin AST ALT Alkaline Phosphatase Ammonia Troponin I High Sens Total Protein Albumin Lipase Peritoneal WBC Peritoneal RBC Periton Neutrophils Periton Lymphocytes Peritoneal Monocytes Peritoneal Other Cells COVID-19 (JESIKA) Negative [facility] [employer] Com See Note Influenza Type A (RACHELL) Negative Influenza Type B (RACHELL) Negative Influenza A & B Note See Note 03/17/22 03/17/22 03/17/22 17:31 19:30 20:01 MCV MCH MCHC RDW Plt Count MPV Immature Gran % (Auto) Neut % (Auto) Lymph % (Auto) [place] % (Auto) Eos % (Auto) Baso % (Auto) Lymph # (Auto) [place] # (Auto) Eos # (Auto) Baso # (Auto) Abs Immat Gran (auto) Absolute Neuts (auto) Absolute Nucleated RBC Nucleated RBC % (auto) PT INR Anion Gap Estim Creat Clear Calc Estimated GFR POC Glucose 150 H Random Glucose Fasting Glucose Lactic Acid Lactic Acid F/U @ 2Hr Lactic Acid F/U @ 4Hr 4.9 H* Calcium Total Bilirubin AST ALT Alkaline Phosphatase Ammonia Troponin I High Sens Total Protein Albumin Lipase Peritoneal WBC 0.044 Peritoneal RBC < 0.002 Periton Neutrophils 8 Periton Lymphocytes 40 Peritoneal Monocytes 38 Peritoneal Other Cells 14 COVID-19 (JESIKA) COVID-19 Clin Com Influenza Type A (RACHELL) Influenza Type B (RACHELL) Influenza A & B Note 03/17/22 03/18/22 03/18/22 21:44 05:11 05:11 MCV 100.0 H MCH 34.9 H MCHC 34.9 RDW 15.0 Plt Count 102 L MPV 9.3 L Immature Gran % (Auto) Neut % (Auto) Lymph % (Auto) [place] % (Auto) Eos % (Auto) Baso % (Auto) Lymph # (Auto) [place] # (Auto) Eos # (Auto) Baso # (Auto) Abs Immat Gran (auto) Absolute Neuts (auto) Absolute Nucleated RBC 0.000 Nucleated RBC % (auto) 0.0 PT INR Anion Gap 13 Estim Creat Clear Calc 66.6 Estimated GFR > 60 POC Glucose 142 H Random Glucose Fasting Glucose 134 H Lactic Acid Lactic Acid F/U @ 2Hr Lactic Acid F/U @ 4Hr Calcium Total Bilirubin AST ALT Alkaline Phosphatase Ammonia Troponin I High Sens Total Protein Albumin Lipase Peritoneal WBC Peritoneal RBC Periton Neutrophils Periton Lymphocytes Peritoneal Monocytes Peritoneal Other Cells COVID-19 (JESIKA) COVID-19 Clin Com Influenza Type A (RACHELL) Influenza Type B (RACHELL) Influenza A & B Note 03/18/22 07:28 MCV MCH MCHC RDW Plt Count MPV Immature Gran % (Auto) Neut % (Auto) Lymph % (Auto) [place] % (Auto) Eos % (Auto) Baso % (Auto) Lymph # (Auto) [place] # (Auto) Eos # (Auto) Baso # (Auto) Abs Immat Gran (auto) Absolute Neuts (auto) Absolute Nucleated RBC Nucleated RBC % (auto) PT INR Anion Gap Estim Creat Clear Calc Estimated GFR POC Glucose 124 H Random Glucose Fasting Glucose Lactic Acid Lactic Acid F/U @ 2Hr Lactic Acid F/U @ 4Hr Calcium Total Bilirubin AST ALT Alkaline Phosphatase Ammonia Troponin I High Sens Total Protein Albumin Lipase Peritoneal WBC Peritoneal RBC Periton Neutrophils Periton Lymphocytes Peritoneal Monocytes Peritoneal Other Cells COVID-19 (JESIKA) COVID-19 Clin Com Influenza Type A (RACHELL) Influenza Type B (RACHELL) Influenza A & B Note Assessment and Plan (1) SAUL (acute kidney injury): Status: Acute (2) Ascites: Status: Acute Plan 56M PMH etoh cirrhosis (reports 1 year soberiety), DM, presented after VNA found patient covered in stool. found to have saul, hyponatremia, large ascites, hyperkalemia alcohol cirrhosis with symptomatic ascites, and metabolic encephalopathy (hepatic) continulactulose, rifaximin plan for paracentesis with albumin today gi eval tachycardia, hypotension--? itravascular depletion. NS, get ecg SAUL albumin, hold diuretics, monitor, nephro consult hypOnatremia, worst fluid restrict, monitor, nephro to adivse hypERkalemia hold aldactone, Lokelma and monitor Cogagulopathy--no bleeding, observe DM hold metformin insulin lactic acidosis due to liver disease not sepsis dvt prophylaxis- mechanical due to coagulopathy full code Need for inpatient :ongoing management of electrolytes abnormalities, asul, hi K, decompensated cirrhosis cannot be managed in less acute setting Time Spent With Patient Time: Total time managing care of this patient today ____ minutes. Quality Stroke Does the patient have a stroke diagnosis?: No VTE Prior VTE?: No VTE Risk Level:: Medical - moderate - high VTE Device Contraindication: N/A - Device Ordered VTE Drug Contraindication: Treatment Not Indicated
[2022-03-18 07:58] VITALS: BP 92/50; PULSE 123; RESP 16; TEMP 36.1; O2SAT 100
[2022-03-18 07:59] LABS: Calcium 8.9 mg/dL (8.4-10.2)
--- NOTE | 2022-03-18 09:08 | PM.CNNEP ---
History of Present Illness Reason for Consult Consult date: 03/18/22 Reason for consult: SAUL Chief Complaint Chief complaint: SAUL, Weakness History of Present Illness Narrative: ?etoh cirrhosis , DM, presented after VNA found patient covered in stool. reports recent progressive weakness, decreased appetite and po intake, increased abdominal distension, denies fever, chills, sob. in ED found to have significantly distended abdomen, diffuse skin excoriations,? labs significant for SAUL, hyponatremia, hyperkalemia. [facility] Past Medical History Medical History (Updated 03/18/22 @ 09:11 by Rowdy Vargas MD) SAUL (acute kidney injury) Alcohol abuse Ascites Diabetes Elevated liver enzymes Hypertension Liver cirrhosis Pressure ulcer Withdrawal seizures Family History Family History Other No family history of coronary artery disease Surgical History Surgical History No pertinent past surgical history Social History Social History Household Members: Spouse Housing: Apartment Do you presently have visiting nurse or other home services: Yes Alcohol intake: former Patient Tobacco Use Status: Never used Tobacco Tobacco use type: Smokeless Tobacco Second Hand Smoke Exposure: No Advance Directives Date on File: 03/18/22 service: Yes Current occupational status: unemployed Meds Allergies Allergy/AdvReac Type Severity Reaction Status Date / Time acetaminophen [From PERCOCET] Allergy Severe AGITATION Verified 03/17/22 13:04 oxycodone [From PERCOCET] Allergy Severe AGITATION Verified 03/17/22 13:04 bee pollen [Bee Stings] Allergy Mild SWELLING Verified 03/17/22 13:04 lorazepam AdvReac Unknown AGITATION Verified 03/17/22 13:04 Active Medications: Current Medications Dextrose (Dextrose 50 % 25 Gm/50 Ml Syringe) 25 gm IVPUSH Q15M PRN; Protocol PRN Reason: per Hypoglycemia Standing Ord. Folic Acid (Folic Acid 1 Mg Tablet) 1 mg PO DAILY [facility] Furosemide (Furosemide 40 Mg Tablet) 40 mg PO DAILY [facility]; Protocol Glucose (Glucose Gel 15 Gm Gel..Gram.) 15 gm PO Q15M PRN; Protocol PRN Reason: per Hypoglycemia Standing Ord. Albumin Human (Kedbumin 25 %) 100 mls @ 100 mls/hr IV Q6H [facility] Stop: 03/18/22 13:44 Last Admin: 03/18/22 06:44 Dose: 100 mls/hr Insulin Human Lispro (Insulin Lispro 100 Unit/Ml 3 Ml Vial) 0 unit SUBCUT QIDACHS [facility]; Protocol Last Admin: 03/18/22 07:52 Dose: Not Given Lactulose (Lactulose 20 Gm/30 Ml Solution) 20 gm PO BID [facility] Last Admin: 03/17/22 22:35 Dose: 20 gm Lactulose (Lactulose 20 Gm/30 Ml Solution) 20 gm PO BID [facility] Omeprazole (Omeprazole 20 Mg Capsule.) 20 mg PO DAILY [facility] Pharmacy Consult (Consult Rx Perform Med Rec) 1 each MISCELLANE ONCE PRN PRN Reason: Consult order Rifaximin (Rifaximin 550 Mg Tablet) 550 mg PO BID [facility] Last Admin: 03/17/22 22:35 Dose: 550 mg Sodium Chloride (0.9 % Sodium Chloride Flush 3 Ml Syringe) 3 ml IVFLUSH QSHIFT [facility] Last Admin: 03/18/22 07:43 Dose: Not Given Thiamine HCl (Thiamine Hcl 100 Mg Tablet) 100 mg PO DAILY [facility] Home Medications Medication Instructions Recorded Confirmed Last Taken Type furosemide 40 mg tablet 1 tab PO DAILY 03/17/22 03/17/22 03/17/22 History lactulose 10 gram/15 mL oral 30 ml PO BID 03/17/22 03/17/22 03/17/22 History solution omeprazole 20 mg capsule,delayed 1 cap PO DAILY 03/17/22 03/17/22 03/17/22 History release Physical Exam Vital Signs: Last Vital Signs Temp 96.9 F 03/18/22 07:58 Pulse 123 H 03/18/22 07:58 Resp 16 03/18/22 07:58 BP 92/50 L 03/18/22 07:58 Pulse Ox 100 03/18/22 07:58 O2 Del Method 03/18/22 07:58 BMI result Body Mass Index 26.4 Results Lab Results Result Diagrams: 03/18/22 05:11 03/18/22 05:11 Lab results: Chemistry 03/17/22 03/18/22 14:15 05:11 Sodium 126 L 123 L Potassium 5.5 H D 5.4 H Carbon Dioxide 16 L 16 L BUN 27 H D 28 H Creatinine 1.31 1.13 Calcium 9.5 D 8.9 D Hematology 03/17/22 03/18/22 14:15 05:11 WBC 8.6 10.0 Hgb 12.1 L D 11.0 L Plt Count 118 L 102 L Assessment and Plan (1) Ascites: Status: Acute (2) SAUL (acute kidney injury): Status: Acute SAUL high K and low NA all likely from vol depletions (hemoconcentration) with high HBG from baseline) chronically low Na from cirrhotic state SAUL resolving so can hold IVF except to balance losses Time Spent With Patient Time: Total time managing care of this patient today ____ minutes. Procedures Date of Service Date of Service: 03/18/22
[2022-03-18] MEDS: Omeprazole 20 MG CAPSULE.DR PO (09:24)
[2022-03-18] MEDS: Lactulose 20 GM/30 ML SOLUTION PO ×2 (09:24→20:23)
[2022-03-18] MEDS: Folic Acid 1 MG TABLET PO (09:24)
[2022-03-18] MEDS: Thiamine HCL 100 MG TABLET PO (09:24)
[2022-03-18] MEDS: rifAXIMin 550 MG TABLET PO ×2 (09:24→20:23)
[2022-03-18] MEDS: Furosemide 40 MG TABLET PO (09:24)
--- NOTE | 2022-03-18 11:46 | P.CNGI_ITS ---
History of Present Illness Data of Consult Service Date: 03/18/22 Requesting physician: Asa Hawk Primary Care Provider: Maren Carvajal MD HPI Reason for consult: Liver cirrhosis, ascites, saul 56 YM with ESLD related to ETOH abuse (reports 1 year soberiety), DM, non compliance, peripheral neuropathy and poor mobility seen at [facility] on 03/17/22 after VNA found patient covered in stool and as per EMS - he had increased weakness, lethargy and wounds on the right side.? Patient lives at home with his GF and was referred by visiting nurse.? Patient himself denied any abdominal pain, nausea, vomiting, fevers, chills and stated that his right leg hurts and that he has been scratching at.? He endorsed some mild shortness of breath and denied any chest pain.? Patient stated he usually gets paracentesis every 7-10 days and last LVP was on 02/20/22 and 16 L of clear yellowish fluid was drained from the right lower quadrant?. Pt is followed by Dr Hutchison in the GI clinic. Patient reports normally able to amublate with walker, reports recent progressive weakness, decreased appetite and po intake, increased abdominal distension, denies fever, chills, sob. In ED found to have significantly distended abdomen, diffuse skin excoriations,? labs significant for SAUL, hyopnatremia, hyperkalemia. Review of Systems Review of Systems: Constitutional: Denies fever, denies Chills Eyes: denies blurry vision ENT: denies sore throat CVS: denies chest pain Respiratory: Denies dyspnea GI: abdominal distension : denies dysuria MSK: denies neck pain Skin: rash Neuro: denies specific motor weakness Psych: denies suicidal ideation Endocrine: denies heat/cold intolerance Hematologic: denies easy bleeding Allergy: denies hives PMFSH Past Medical History Medical History SAUL (acute kidney injury) Alcohol abuse Ascites Diabetes Elevated liver enzymes Hypertension Liver cirrhosis Pressure ulcer Withdrawal seizures Family History Family History Other No family history of coronary artery disease Surgical History Surgical History No pertinent past surgical history Social History Social History Household Members: Spouse Housing: Apartment Do you presently have visiting nurse or other home services: Yes Alcohol intake: former Patient Tobacco Use Status: Never used Tobacco Tobacco use type: Smokeless Tobacco Smoked in Last 30 Days: No Second Hand Smoke Exposure: No Use of substances other than those prescribed or required for medical reasons: No Advance Directives: Yes Advance Directives on File: Yes Advance Directives Date on File: 03/18/22 service: Yes Current occupational status: unemployed Meds Allergies Allergy/AdvReac Type Severity Reaction Status Date / Time acetaminophen [From PERCOCET] Allergy Severe AGITATION Verified 03/21/22 19:47 oxycodone [From PERCOCET] Allergy Severe AGITATION Verified 03/21/22 19:47 bee pollen [Bee Stings] Allergy Mild SWELLING Verified 03/21/22 19:47 lorazepam AdvReac Unknown AGITATION Verified 03/21/22 19:47 Active Medications: Current Medications Dextrose (Dextrose 50 % 25 Gm/50 Ml Syringe) 25 gm IVPUSH Q15M PRN; Protocol PRN Reason: per Hypoglycemia Standing Ord. Folic Acid (Folic Acid 1 Mg Tablet) 1 mg PO DAILY [facility] Last Admin: 03/18/22 09:24 Dose: 1 mg Furosemide (Furosemide 40 Mg Tablet) 40 mg PO DAILY [facility]; Protocol Last Admin: 03/18/22 09:24 Dose: 40 mg Glucose (Glucose Gel 15 Gm Gel..Gram.) 15 gm PO Q15M PRN; Protocol PRN Reason: per Hypoglycemia Standing Ord. Albumin Human (Kedbumin 25 %) 100 mls @ 100 mls/hr IV Q6H [facility] Stop: 03/18/22 13:44 Last Infusion: 03/18/22 09:59 Dose: Infused Insulin Human Lispro (Insulin Lispro 100 Unit/Ml 3 Ml Vial) 0 unit SUBCUT QIDACHS [facility]; Protocol Last Admin: 03/18/22 07:52 Dose: Not Given Lactulose (Lactulose 20 Gm/30 Ml Solution) 20 gm PO BID [facility] Last Admin: 03/18/22 09:24 Dose: 20 gm Lactulose (Lactulose 20 Gm/30 Ml Solution) 20 gm PO BID [facility] Last Admin: 03/18/22 10:25 Dose: Not Given Omeprazole (Omeprazole 20 Mg Capsule.) 20 mg PO DAILY [facility] Last Admin: 03/18/22 09:24 Dose: 20 mg Pharmacy Consult (Consult Rx Perform Med Rec) 1 each MISCELLANE ONCE PRN PRN Reason: Consult order Rifaximin (Rifaximin 550 Mg Tablet) 550 mg PO BID [facility] Last Admin: 03/18/22 09:24 Dose: 550 mg Sodium Chloride (0.9 % Sodium Chloride Flush 3 Ml Syringe) 3 ml IVFLUSH QSHIFT [facility] Last Admin: 03/18/22 07:43 Dose: Not Given Thiamine HCl (Thiamine Hcl 100 Mg Tablet) 100 mg PO DAILY [facility] Last Admin: 03/18/22 09:24 Dose: 100 mg Home Medications Medication Instructions Recorded Confirmed Last Taken Type furosemide 40 mg tablet 1 tab PO DAILY 03/17/22 03/17/22 03/17/22 History lactulose 10 gram/15 mL oral 30 ml PO BID 03/17/22 03/17/22 03/17/22 History solution omeprazole 20 mg capsule,delayed 1 cap PO DAILY 03/17/22 03/17/22 03/17/22 History release Physical Exam Vital Signs: Vital Signs: Last Vital Signs Temp 96.9 F 03/18/22 07:58 Pulse 123 H 03/18/22 07:58 Resp 16 03/18/22 07:58 BP 92/50 L 03/18/22 07:58 Pulse Ox 100 03/18/22 07:58 O2 Del Method 03/18/22 07:58 BMI result Body Mass Index 26.4 Const: General: no acute distress and ill appearing Nutritional Appearance: overweight Orientation/consciousness: patient oriented x3 Limitations: no limitations HEENT: Head: Yes normal to inspection Ears: hearing grossly normal bilaterally Eyes: Sclerae: sclerae normal Pupils: Equal, round and reactive pupils present Neck: Neck: Yes normal visual inspection Chest: Chest palpation & inspection: normal inspection of the chest Resp: Effort & Inspection: normal respiratory effort Auscultation: clear to auscultation bilaterally Cardio: Palpation: normal PMI Rate: regular rate Rhythm: regular rhythm Heart sounds: S1 normal heart sound present, S2 normal heart sound present and no murmurs GI: Palpation (GI): Soft to palpation, nontender and No hepatosplenomegaly pr esent Auscultation: normal bowel sounds Rectal Exam - Male: Yes deferred Skin: General skin exam: no rashes or lesions noted and spider nevi (on anterior chest) Neuro: General: patient oriented x3, gait normal and moves all extremities Cranial nerves: Yes Equal, round and reactive pupils present Extrem: General: Yes pedal edema (1+ pitting edema bilaterally) Psych: Appearance: grossly normal Mental Status: mental status grossly normal Results Labs 03/18/22 05:11 03/21/22 05:00 Labs: Short CBC 03/17/22 03/18/22 Range/Units 14:15 05:11 WBC 8.6 10.0 (4.8-10.8) X10*3/uL Hgb 12.1 L D 11.0 L (14.0-18.0) g/dl Hct 34.9 L D 31.5 L (42.0-52.0) % Plt Count 118 L 102 L (160-400) X10*3/uL BMP 03/17/22 03/18/22 14:15 05:11 Sodium 126 L 123 L Potassium 5.5 H D 5.4 H Chloride 99 99 Carbon Dioxide 16 L 16 L BUN 27 H D 28 H Creatinine 1.31 1.13 Calcium 9.5 D 8.9 D Liver Function 03/17/22 Range/Units 14:15 Total Bilirubin 3.9 H (0.0-1.0) mg/dL AST 48 H (5-37) U/L ALT 35 (0-40) U/L Alkaline Phosphatase 147 H D (39-117) U/L Albumin 2.7 L (3.5-5.0) g/dL Microbiology Microbiology Results: Microbiology 03/17/22 19:29 Ascites Fluid Gram Stain - Final 03/17/22 19:29 Ascites Fluid Anaerobic Culture - Preliminary No growth to date. 03/17/22 19:29 Ascites Fluid Body Fluid Culture - Preliminary No growth to date. Assessment and Plan (1) Ascites: Status: Acute (2) Liver cirrhosis: Status: Acute (3) Coagulopathy: Status: Acute Plan 56 YM with ESLD related to ETOH abuse (reports 1 year soberiety), DM, non compliance, peripheral neuropathy and poor mobility admitted [place] [facility] [place] 03/17/22 after VNA found patient covered in stool and as per EMS - he had increased weakness, lethargy and wounds on the right side. Abdominal distension has improved after pt had LVP yesterday (ascitic fluid was negative for SBP). Pt also had peripheral neuropathy, malnutrition and a hx of hepatic encephalopathy (No flap on current admission). SAUL maybe related to hepatorenal syndrome, chronic and intravascular depletion RECOMMENDATIONS: 1. Low salt diet. 2. Pt had mild SAUL on admission which is improving. 3. High protein diet 1.1 g/kg per day. 4. Continue lactulose with goal of 2-3 soft stools daily. 5. Management of hyponatremia by holding diuretics and as per Nephrology Pt has a FU appt with Dr Hutchison on 04/20/22. Time Spent With Patient Time: Total time managing care of this patient today ____ minutes. Procedures Date of Service Date of Service: 03/18/22
[2022-03-18] MEDS: Insulin Lispro 100 UNIT/ML 3 ML VIAL SUBCUT ×3 (12:21→20:23)
[2022-03-18 15:37] LABS: Glucose, Whole Blood 191 mg/dL (60-115)
[2022-03-18 15:45] VITALS: BP 115/58; PULSE 125; RESP 18; TEMP 36.8; O2SAT 100
[2022-03-18 16:13] LABS: Glucose, Whole Blood 176 mg/dL (60-115)
[2022-03-18 20:00] VITALS: BP 101/55; PULSE 121; RESP 18; TEMP 36.8; O2SAT 100
[2022-03-18 20:03] LABS: Glucose, Whole Blood 186 mg/dL (60-115)
[2022-03-19 03:34] VITALS: BP 98/52; PULSE 118; RESP 18; TEMP 36.8; O2SAT 98
[2022-03-19 08:00] VITALS: BP 137/72; PULSE 93; RESP 18; TEMP 37; O2SAT 93
[2022-03-19 08:04] LABS: Glucose, Whole Blood 125 mg/dL (60-115)
[2022-03-19] MEDS: rifAXIMin 550 MG TABLET PO ×2 (09:31→20:32)
[2022-03-19] MEDS: Lactulose 20 GM/30 ML SOLUTION PO ×2 (09:31→20:32)
[2022-03-19] MEDS: Folic Acid 1 MG TABLET PO (09:31)
[2022-03-19] MEDS: Omeprazole 20 MG CAPSULE.DR PO (09:31)
[2022-03-19] MEDS: 0.9 % Sodium Chloride Flush 3 ML SYRINGE IVFLUSH ×2 (09:31→17:20)
[2022-03-19] MEDS: Thiamine HCL 100 MG TABLET PO (09:31)
[2022-03-19 09:32] LABS: Anion Gap 12 (12-20); Blood Urea Nitrogen 23 mg/dL (9-16); Calcium 8.8 mg/dL (8.4-10.2); Carbon Dioxide 17 mmol/L (22-29); Chloride 102 mmol/L (96-108); Creatinine Clr Calc Pharmacy 86.5; Estimated Glomerular Filt Rate > 60; Glucose Random 114 mg/dL (60-115); Potassium 5.7 mmol/L (3.3-5.1); Sodium 125 mmol/L (135-145)
[2022-03-19 11:52] LABS: Glucose, Whole Blood 180 mg/dL (60-115)
[2022-03-19] MEDS: Insulin Lispro 100 UNIT/ML 3 ML VIAL SUBCUT ×3 (12:20→20:32)
--- NOTE | 2022-03-19 12:28 | P.PNIM_ITS ---
Subjective Subjective Date of Service: 03/19/22 Interval History: Seen in f/u for SAUL, hi K, low sodium, ascietes interval : peristent high k, low sodium Physical Exam Vital Signs: Vital Signs: Last Vital Signs Temp 98.6 F 03/19/22 08:00 Pulse 93 03/19/22 08:00 Resp 18 03/19/22 08:00 BP 137/72 03/19/22 08:00 Pulse Ox 93 03/19/22 08:00 O2 Del Method 03/19/22 08:00 O2 Flow Rate 2 03/19/22 08:00 BMI result Body Mass Index 26.4 Const: Other: General: AO X 3, no acute distress Resp: CTA bilateral CVS: S1,S2,RRR GI: +BS, NT, no distention Skin: No rash Neuro: motor grossly intact Psych: appropriate affect Objective Data Active Medications Dextrose (Dextrose 50 % 25 Gm/50 Ml Syringe) 25 gm IVPUSH Q15M PRN; Protocol PRN Reason: per Hypoglycemia Standing Ord. Folic Acid (Folic Acid 1 Mg Tablet) 1 mg PO DAILY [facility] Last Admin: 03/19/22 09:31 Dose: 1 mg Documented By: DARIA Glucose (Glucose Gel 15 Gm Gel..Gram.) 15 gm PO Q15M PRN; Protocol PRN Reason: per Hypoglycemia Standing Ord. Insulin Human Lispro (Insulin Lispro 100 Unit/Ml 3 Ml Vial) 0 unit SUBCUT QIDACHS [facility]; Protocol Last Admin: 03/19/22 12:20 Dose: 2 unit Documented By: DARIA Lactulose (Lactulose 20 Gm/30 Ml Solution) 20 gm PO BID [facility] Last Admin: 03/19/22 09:31 Dose: 20 gm Documented By: DARIA Lactulose (Lactulose 20 Gm/30 Ml Solution) 20 gm PO BID [facility] Last Admin: 03/19/22 09:26 Dose: Not Given Documented By: DARIA Non-Admin Reason: Duplicate Order Omeprazole (Omeprazole 20 Mg Capsule.) 20 mg PO DAILY [facility] Last Admin: 03/19/22 09:31 Dose: 20 mg Documented By: DARIA Pharmacy Consult (Consult Rx Perform Med Rec) 1 each MISCELLANE ONCE PRN PRN Reason: Consult order Rifaximin (Rifaximin 550 Mg Tablet) 550 mg PO BID [facility] Last Admin: 03/19/22 09:31 Dose: 550 mg Documented By: DARIA Sodium Chloride (0.9 % Sodium Chloride Flush 3 Ml Syringe) 3 ml IVFLUSH QSHIFT [facility] Last Admin: 03/19/22 09:31 Dose: 3 ml Documented By: DARIA Thiamine HCl (Thiamine Hcl 100 Mg Tablet) 100 mg PO DAILY [facility] Last Admin: 03/19/22 09:31 Dose: 100 mg Documented By: DARIA Labs CBC & Chem 7: 03/18/22 05:11 03/19/22 08:09 Labs: Laboratory Results - last 24 hr 03/18/22 03/18/22 03/18/22 11:06 15:35 19:40 Anion Gap Estim Creat Clear Calc Estimated GFR POC Glucose 191 H 176 H 186 H Random Glucose Calcium 03/19/22 03/19/22 03/19/22 07:52 08:09 11:41 Anion Gap 12 Estim Creat Clear Calc 86.5 Estimated GFR > 60 POC Glucose 125 H 180 H Random Glucose 114 Calcium 8.8 Microbiology Microbiology Results: Microbiology 03/17/22 19:29 Gram Stain - Final Ascites Fluid Anaerobic Culture - Preliminary Culture in progress. Body Fluid Culture - Preliminary No growth after 1 day 03/17/22 14:31 Blood Culture - Preliminary Blood - Venous No growth after 24 hours. 03/17/22 14:15 Blood Culture - Preliminary Blood - Venous No growth after 24 hours. Assessment and Plan (1) SAUL (acute kidney injury): Status: Acute (2) Ascites: Status: Acute Plan 56M PMH etoh cirrhosis (reports 1 year soberiety), DM, presented after VNA found patient covered in stool. found to have saul, hyponatremia, large ascites, hyperkalemia alcohol cirrhosis with symptomatic ascites, and metabolic encephalopathy (hepatic) continulactulose, rifaximin s/p paracentesis gi following medical management with lasix, avoid aldactone d/t high k tachycardia, hypotension--? itravascular depletion. resolved with IVF SAUL--likely pre renal, resolved, nl Cr nephro following Hyperkalemia--Lokelma hypOnatremia, worst fluid restrict, monitor, nephro to adivse hypERkalemia hold aldactone, Lokelma and monitor Cogagulopathy--no bleeding, observe DM hold metformin insulin lactic acidosis due to liver disease not sepsis dvt prophylaxis- mechanical due to coagulopathy full code Need for inpatient :ongoing management of electrolytes abnormalities, saul, hi K, decompensated cirrhosis cannot be managed in less acute setting Time Spent With Patient Time: Total time managing care of this patient today ____ minutes. Quality Stroke Does the patient have a stroke diagnosis?: No VTE Prior VTE?: No VTE Risk Level:: Medical - moderate - high VTE Device Contraindication: N/A - Device Ordered VTE Drug Contraindication: Treatment Not Indicated
--- NOTE | 2022-03-19 12:46 | PM.PNNEP ---
Subjective Subjective Date of Service: 03/19/22 Interval history: Seen in f/u for SAUL, hi K, low sodium, ascietes interval : peristent high k, low sodium Physical Exam Vital Signs: Vital Signs: Last Vital Signs Temp 98.6 F 03/19/22 08:00 Pulse 93 03/19/22 08:00 Resp 18 03/19/22 08:00 BP 137/72 03/19/22 08:00 Pulse Ox 93 03/19/22 08:00 O2 Del Method 03/19/22 08:00 O2 Flow Rate 2 03/19/22 08:00 BMI result Body Mass Index 26.4 Const: Other: General: AO X 3, no acute distress Resp: CTA bilateral CVS: S1,S2,RRR GI: +BS, NT, no distention Skin: No rash Neuro: motor grossly intact Psych: appropriate affect General: no acute distress and ill appearing Objective Data Labs CBC & Chem 7: 03/18/22 05:11 03/19/22 08:09 Labs: Laboratory Results - last 24 hr 03/18/22 03/18/22 03/18/22 11:06 15:35 19:40 Sodium Potassium Chloride Carbon Dioxide Anion Gap BUN Creatinine Estim Creat Clear Calc Estimated GFR POC Glucose 191 H 176 H 186 H Random Glucose Calcium 03/19/22 03/19/22 03/19/22 07:52 08:09 11:41 Sodium 125 L Potassium 5.7 H Chloride 102 Carbon Dioxide 17 L Anion Gap 12 BUN 23 H Creatinine 0.87 Estim Creat Clear Calc 86.5 Estimated GFR > 60 POC Glucose 125 H 180 H Random Glucose 114 Calcium 8.8 Microbiology Microbiology Results: Microbiology 03/17/22 19:29 Ascites Fluid Gram Stain - Final 03/17/22 19:29 Ascites Fluid Anaerobic Culture - Preliminary Culture in progress. 03/17/22 19:29 Ascites Fluid Body Fluid Culture - Preliminary No growth after 1 day 03/17/22 14:31 Blood - Venous Blood Culture - Preliminary No growth after 24 hours. 03/17/22 14:15 Blood - Venous Blood Culture - Preliminary No growth after 24 hours. Procedures Date of Service Date of Service: 03/19/22 Assessment & Plan Assessment and plan (1) Ascites: Status: Acute (2) SAUL (acute kidney injury): Status: Acute Assessment and Plan: SAUL high K and low NA all likely from vol depletions (hemoconcentration) with high HBG from baseline) chronically low Na from cirrhotic state SAUL resolving so can hold IVF except to balance losses lokelma for high K Time Spent With Patient Time: Total time managing care of this patient today ____ minutes. Progress Note: Quality Stroke Does the patient have a stroke diagnosis?: No
[2022-03-19] MEDS: Sodium Zirconium Cyclosilicate 10 GM POWD.PACK PO (13:39)
[2022-03-19 15:45] LABS: Glucose, Whole Blood 153 mg/dL (60-115)
[2022-03-19 16:00] VITALS: BP 100/55; PULSE 120; RESP 18; TEMP 36.7; O2SAT 100
[2022-03-19 19:35] LABS: Glucose, Whole Blood 166 mg/dL (60-115)
[2022-03-19 19:51] VITALS: BP 108/68; PULSE 125; RESP 16; TEMP 37.1; O2SAT 99
[2022-03-20 03:46] VITALS: BP 99/49; PULSE 113; RESP 18; TEMP 36.9; O2SAT 98
[2022-03-20 07:37] LABS: Glucose, Whole Blood 162 mg/dL (60-115)
[2022-03-20 08:00] VITALS: BP 103/55; PULSE 111; RESP 18; TEMP 36.7; O2SAT 100
[2022-03-20] MEDS: Insulin Lispro 100 UNIT/ML 3 ML VIAL SUBCUT ×4 (08:15→20:56)
[2022-03-20] MEDS: Lactulose 20 GM/30 ML SOLUTION PO ×2 (08:16→20:56)
[2022-03-20] MEDS: 0.9 % Sodium Chloride Flush 3 ML SYRINGE IVFLUSH ×3 (08:16→22:25)
[2022-03-20] MEDS: rifAXIMin 550 MG TABLET PO ×2 (08:16→20:56)
[2022-03-20] MEDS: Folic Acid 1 MG TABLET PO (08:17)
[2022-03-20] MEDS: Thiamine HCL 100 MG TABLET PO (08:17)
[2022-03-20] MEDS: Omeprazole 20 MG CAPSULE.DR PO (08:17)
[2022-03-20 08:24] LABS: Anion Gap 8 (12-20); Blood Urea Nitrogen 21 mg/dL (9-16); Calcium 8.5 mg/dL (8.4-10.2); Carbon Dioxide 22 mmol/L (22-29); Chloride 101 mmol/L (96-108); Estimated Glomerular Filt Rate > 60; Glucose Random 173 mg/dL (60-115); Potassium 4.8 mmol/L (3.3-5.1); Sodium 126 mmol/L (135-145)
[2022-03-20 11:20] LABS: Glucose, Whole Blood 193 mg/dL (60-115)
--- NOTE | 2022-03-20 12:35 | P.PNIM_ITS ---
Subjective Subjective Date of Service: 03/21/22 Interval History: Seen in f/u for SAUL, hi K, low sodium, ascietes interval : peristent high k, low sodium Physical Exam Vital Signs: Vital Signs: Last Vital Signs Temp 98.0 F 03/20/22 08:00 Pulse 111 H 03/20/22 08:00 Resp 18 03/20/22 08:00 BP 103/55 L 03/20/22 08:00 Pulse Ox 100 03/20/22 08:00 O2 Del Method 03/20/22 08:00 O2 Flow Rate 2 03/19/22 08:00 BMI result Body Mass Index 26.4 Const: Other: General: AO X 3, no acute distress Resp: CTA bilateral CVS: S1,S2,RRR GI: +BS, NT, no distention Skin: No rash Neuro: motor grossly intact Psych: appropriate affect Objective Data Active Medications Dextrose (Dextrose 50 % 25 Gm/50 Ml Syringe) 25 gm IVPUSH Q15M PRN; Protocol PRN Reason: per Hypoglycemia Standing Ord. Folic Acid (Folic Acid 1 Mg Tablet) 1 mg PO DAILY [facility] Last Admin: 03/20/22 08:17 Dose: 1 mg Documented By: JOSE LUIS Glucose (Glucose Gel 15 Gm Gel..Gram.) 15 gm PO Q15M PRN; Protocol PRN Reason: per Hypoglycemia Standing Ord. Insulin Human Lispro (Insulin Lispro 100 Unit/Ml 3 Ml Vial) 0 unit SUBCUT QIDACHS [facility]; Protocol Last Admin: 03/20/22 12:15 Dose: 2 unit Documented By: JOSE LUIS Lactulose (Lactulose 20 Gm/30 Ml Solution) 20 gm PO BID [facility] Last Admin: 03/20/22 08:16 Dose: 20 gm Documented By: JOSE LUIS Lactulose (Lactulose 20 Gm/30 Ml Solution) 20 gm PO BID [facility] Last Admin: 03/20/22 08:16 Dose: Not Given Documented By: JOSE LUIS Non-Admin Reason: Duplicate Order Omeprazole (Omeprazole 20 Mg Capsule.) 20 mg PO DAILY [facility] Last Admin: 03/20/22 08:17 Dose: 20 mg Documented By: JOSE LUIS Pharmacy Consult (Consult Rx Perform Med Rec) 1 each MISCELLANE ONCE PRN PRN Reason: Consult order Rifaximin (Rifaximin 550 Mg Tablet) 550 mg PO BID [facility] Last Admin: 03/20/22 08:16 Dose: 550 mg Documented By: JOSE LUIS Sodium Chloride (0.9 % Sodium Chloride Flush 3 Ml Syringe) 3 ml IVFLUSH QSHIFT [facility] Last Admin: 03/20/22 08:16 Dose: 3 ml Documented By: JOSE LUIS Thiamine HCl (Thiamine Hcl 100 Mg Tablet) 100 mg PO DAILY [facility] Last Admin: 03/20/22 08:17 Dose: 100 mg Documented By: JOSE LUIS Labs CBC & Chem 7: 03/18/22 05:11 03/21/22 05:00 Labs: Laboratory Results - last 24 hr 03/19/22 03/19/22 03/20/22 15:26 19:20 07:29 Anion Gap Estim Creat Clear Calc Estimated GFR POC Glucose 153 H 166 H 162 H Random Glucose Calcium 03/20/22 03/20/22 07:51 11:03 Anion Gap 8 L Estim Creat Clear Calc 76.0 Estimated GFR > 60 POC Glucose 193 H Random Glucose 173 H Calcium 8.5 Microbiology Microbiology Results: Microbiology 03/17/22 19:29 Gram Stain - Final Ascites Fluid Anaerobic Culture - Preliminary No growth to date. Body Fluid Culture - Final No growth after 2 days 03/17/22 14:31 Blood Culture - Preliminary Blood - Venous No growth after 48 hours. 03/17/22 14:15 Blood Culture - Preliminary Blood - Venous No growth after 48 hours. Assessment and Plan (1) SAUL (acute kidney injury): Status: Acute (2) Ascites: Status: Acute Plan 56M PMH etoh cirrhosis (reports 1 year soberiety), DM, presented after VNA found patient covered in stool. found to have saul, hyponatremia, large ascites, hyperkalemia alcohol cirrhosis with symptomatic ascites, and metabolic encephalopathy (hepatic) continulactulose, rifaximin s/p paracentesis gi following medical management with lasix, avoid aldactone d/t high k tachycardia, hypotension--? itravascular depletion. resolved with IVF SAUL--likely pre renal, resolved, nl Cr nephro following Hyperkalemia--Lokelma and resolved hypOnatremia, improving fluid restrict, monitor, nephro to adivse, add salt tab Tachycardia--? chronic, get ecg Cogagulopathy--no bleeding, observe DM hold metformin insulin lactic acidosis due to liver disease not sepsis dvt prophylaxis- mechanical due to coagulopathy full code Need for inpatient :ongoing management of electrolytes abnormalities, saul, hi K, decompensated cirrhosis cannot be managed in less acute setting Time Spent With Patient Time: Total time managing care of this patient today ____ minutes. Quality Stroke Does the patient have a stroke diagnosis?: No VTE Prior VTE?: No VTE Risk Level:: Medical - moderate - high VTE Device Contraindication: N/A - Device Ordered VTE Drug Contraindication: Treatment Not Indicated
--- NOTE | 2022-03-20 12:48 | P.CDIC_ITS ---
CDI Concurrent Query Documentation Clarification: PHYSICIAN'S DOCUMENTATION REQUEST Date of Query: 03/20/22 1248 Patient Name: Ritesh Balderas Admit Date: 03/17/22 Dear Doctor, A review of the medical record indicates additional documentation may be needed. Please review below and update the documentation accordingly. Clinical Indicators: A diagnosis of encephalopathy is indicated in provider documentation but varies in type and consistency. Please clarify type of encephalopathy based on the findings below: Risk Factors/Clinical Indicators/Treatments -Per provider progress notes: alcohol cirrhosis with symptomatic ascites, and metabolic encephalopathy (hepatic) -Patient with electrolyte imbalances -Patient being treated for metabolic aci dosis -Patient being treated for SAUL Based on the above, please further specify, in the Progress Notes, the known or suspected type of the documented encephalopathy: * Metabolic * Hepatic (reported as hepatic failure and needs further specificity as to acute, subacute, or chronic) * Other (please specify) * Unable to determine Use of terms such as suspected, likely, concern for, or probable (associated with a specific diagnosis that is being evaluated, monitored, or treated as if it exists) are acceptable and can be coded in the inpatient setting, when documented at the time of discharge. Thank you, Audra Tapia MS, RN, CCRN Extension: [phone] Please use your independent medical judgment in providing your response. THIS QUERY IS PART OF THE PERMANENT MEDICAL RECORD Provider Response: Other Other Diagnosis: I don't understand the nature of the query
--- NOTE | 2022-03-20 13:08 | PM.PNNEP ---
Subjective Subjective Date of Service: 03/20/22 Interval history: seen and examined no complaints Physical Exam Vital Signs: Vital Signs: Last Vital Signs Temp 98.0 F 03/20/22 08:00 Pulse 111 H 03/20/22 08:00 Resp 18 03/20/22 08:00 BP 103/55 L 03/20/22 08:00 Pulse Ox 100 03/20/22 08:00 O2 Del Method 03/20/22 08:00 O2 Flow Rate 2 03/19/22 08:00 BMI result Body Mass Index 26.4 Const: General: no acute distress HEENT: Head: Yes normocephalic and Yes atraumatic Neck: Neck: Yes supple Resp: Auscultation: diminished lung sounds Cardio: Heart sounds: S1 normal heart sound present and S2 normal heart sound present GI: Palpation (GI): Soft to palpation and nontender Extrem: General: No pedal edema Objective Data Labs CBC & Chem 7: 03/18/22 05:11 03/20/22 07:51 Labs: Laboratory Results - last 24 hr 03/19/22 03/19/22 03/20/22 15:26 19:20 07:29 Sodium Potassium Chloride Carbon Dioxide Anion Gap BUN Creatinine Estim Creat Clear Calc Estimated GFR POC Glucose 153 H 166 H 162 H Random Glucose Calcium 03/20/22 03/20/22 07:51 11:03 Sodium 126 L Potassium 4.8 Chloride 101 Carbon Dioxide 22 Anion Gap 8 L BUN 21 H Creatinine 0.99 Estim Creat Clear Calc 76.0 Estimated GFR > 60 POC Glucose 193 H Random Glucose 173 H Calcium 8.5 Microbiology Microbiology Results: Microbiology 03/17/22 19:29 Ascites Fluid Gram Stain - Final 03/17/22 19:29 Ascites Fluid Anaerobic Culture - Preliminary No growth to date. 03/17/22 19:29 Ascites Fluid Body Fluid Culture - Final No growth after 2 days 03/17/22 14:31 Blood - Venous Blood Culture - Preliminary No growth after 48 hours. 03/17/22 14:15 Blood - Venous Blood Culture - Preliminary No growth after 48 hours. Procedures Date of Service Date of Service: 03/20/22 Assessment & Plan Assessment and plan (1) SAUL (acute kidney injury): Status: Acute (2) Hyponatremia: Status: Acute (3) Liver cirrhosis: Status: Acute Plan Sna down SAUL due to renal hypoperfusion resolved suspect hyponatremia in the setting hepatic physiology REC Nicol Uosm fluid restriction avoid urea ? combination sodium chloride tablet + loop diuretics if fluid restriction unsuccesfull follow kidney function and electrolytes Time Spent With Patient Time: Total time managing care of this patient today ____ minutes. Progress Note: Quality Stroke Does the patient have a stroke diagnosis?: No
--- NOTE | 2022-03-20 13:31 | MHC.CM.PN ---
CM RECEIVED A CALL FROM DEVEN [phone] AT THE DIS[facility] D/T A REPORT OF CONCERN BEING FILED, CM PROVIDED DEVEN W/BACKGROUND INFO AND PT'S [facility]. PT HAS NOT BEEN MEDICALLY CLEARED TODAY AND SODIUM IS 126. POTASSIUM NOW WNL.
[2022-03-20 15:15] LABS: Osmolality Urine 587 mosm/kg (373-1093)
[2022-03-20 15:17] LABS: Sodium Urine Random < 20.0 mmol/L
[2022-03-20] MEDS: Sodium Chloride Tab 1 GM TABLET PO ×2 (16:04→20:56)
[2022-03-20 16:52] LABS: Glucose, Whole Blood 167 mg/dL (60-115)
[2022-03-20 16:55] VITALS: BP 105/58; PULSE 105; RESP 20; TEMP 36.2; O2SAT 100
[2022-03-20 19:42] VITALS: BP 125/60; PULSE 111; RESP 20; TEMP 36; O2SAT 100
[2022-03-20 20:17] LABS: Glucose, Whole Blood 158 mg/dL (60-115)
--- NOTE | 2022-03-21 | ECG_ITS ---
Test Reason : TACHYCARDIA Blood Pressure : / mmHG Vent. Rate : 113 BPM Atrial Rate : 113 BPM P-R Int : 152 ms QRS Dur : 068 ms QT Int : 326 ms P-R-T Axes : 047 046 052 degrees QTc Int : 447 ms Sinus tachycardia Low voltage QRS Borderline ECG When compared with ECG of 17-MAR-2022 14:15, No significant change was found Referred By: Darrell [facility] Electronically Signed By:JERRELL BLAIR MD
[2022-03-21 04:00] VITALS: BP 96/50; PULSE 106; RESP 18; TEMP 36.6; O2SAT 100
[2022-03-21 06:21] LABS: Anion Gap 10 (12-20); Blood Urea Nitrogen 18 mg/dL (9-16); Calcium 8.5 mg/dL (8.4-10.2); Carbon Dioxide 21 mmol/L (22-29); Chloride 102 mmol/L (96-108); Creatinine Clr Calc Pharmacy 85.5; Estimated Glomerular Filt Rate > 60; Glucose Random 154 mg/dL (60-115); Potassium 4.5 mmol/L (3.3-5.1); Sodium 128 mmol/L (135-145)
[2022-03-21 07:49] LABS: Glucose, Whole Blood 161 mg/dL (60-115)
[2022-03-21 08:00] VITALS: BP 96/51; PULSE 117; RESP 20; TEMP 36.7; O2SAT 100
[2022-03-21] MEDS: Sodium Chloride Tab 1 GM TABLET PO (08:01)
[2022-03-21] MEDS: Omeprazole 20 MG CAPSULE.DR PO (08:01)
[2022-03-21] MEDS: Thiamine HCL 100 MG TABLET PO (08:01)
[2022-03-21] MEDS: rifAXIMin 550 MG TABLET PO (08:01)
[2022-03-21] MEDS: Lactulose 20 GM/30 ML SOLUTION PO (08:01)
[2022-03-21] MEDS: Folic Acid 1 MG TABLET PO (08:01)
[2022-03-21] MEDS: 0.9 % Sodium Chloride Flush 3 ML SYRINGE IVFLUSH (08:02)
[2022-03-21] MEDS: Insulin Lispro 100 UNIT/ML 3 ML VIAL SUBCUT ×2 (08:02→11:53)
--- NOTE | 2022-03-21 08:20 | HO.PM.IMPN ---
Subjective Subjective Date of Service: 03/21/22 Interval History: seen and examined no complaints, wants to go home sodium is better, HR remasin high Review of Systems no pain no confusion Physical Exam Vital Signs: Vital Signs: Last Vital Signs Temp 98.0 F 03/21/22 08:00 Pulse 117 H 03/21/22 08:00 Resp 20 03/21/22 08:00 BP 96/51 L 03/21/22 08:00 Pulse Ox 100 03/21/22 08:00 O2 Del Method 03/21/22 08:00 O2 Flow Rate 2 03/19/22 08:00 BMI result Body Mass Index 26.4 Const: Other: General: AO X 3, no acute distress Resp: CTA bilateral CVS: S1,S2,RRR GI: +BS, NT, no distention Skin: No rash Neuro: motor grossly intact Psych: appropriate affect Objective Data Active Medications Dextrose (Dextrose 50 % 25 Gm/50 Ml Syringe) 25 gm IVPUSH Q15M PRN; Protocol PRN Reason: per Hypoglycemia Standing Ord. Folic Acid (Folic Acid 1 Mg Tablet) 1 mg PO DAILY [facility] Last Admin: 03/21/22 08:01 Dose: 1 mg Documented By: AUTUMN Glucose (Glucose Gel 15 Gm Gel..Gram.) 15 gm PO Q15M PRN; Protocol PRN Reason: per Hypoglycemia Standing Ord. Insulin Human Lispro (Insulin Lispro 100 Unit/Ml 3 Ml Vial) 0 unit SUBCUT QIDACHS [facility]; Protocol Last Admin: 03/21/22 08:02 Dose: 2 unit Documented By: AUTUMN Lactulose (Lactulose 20 Gm/30 Ml Solution) 20 gm PO BID [facility] Last Admin: 03/21/22 08:02 Dose: Not Given Documented By: AUTUMN Non-Admin Reason: Duplicate Order Lactulose (Lactulose 20 Gm/30 Ml Solution) 20 gm PO BID [facility] Last Admin: 03/21/22 08:01 Dose: 20 gm Documented By: AUTUMN Omeprazole (Omeprazole 20 Mg Capsule.Dr) 20 mg PO DAILY [facility] Last Admin: 03/21/22 08:01 Dose: 20 mg Documented By: AUTUMN Pharmacy Consult (Consult Rx Perform Med Rec) 1 each MISCELLANE ONCE PRN PRN Reason: Consult order Rifaximin (Rifaximin 550 Mg Tablet) 550 mg PO BID [facility] Last Admin: 03/21/22 08:01 Dose: 550 mg Documented By: AUTUMN Sodium Chloride (0.9 % Sodium Chloride Flush 3 Ml Syringe) 3 ml IVFLUSH QSHIFT [facility] Last Admin: 03/21/22 08:02 Dose: 3 ml Documented By: AUTUMN Sodium Chloride (Sodium Chloride Tab 1 Gm Tablet) 1 gm PO BID [facility] Last Admin: 03/21/22 08:01 Dose: 1 gm Documented By: AUTUMN Thiamine HCl (Thiamine Hcl 100 Mg Tablet) 100 mg PO DAILY [facility] Last Admin: 03/21/22 08:01 Dose: 100 mg Documented By: AUTUMN Labs CBC & Chem 7: 03/18/22 05:11 03/21/22 05:00 Labs: Laboratory Results - last 24 hr 03/20/22 03/20/22 03/20/22 07:51 11:03 14:25 Anion Gap 8 L Estim Creat Clear Calc 76.0 Estimated GFR > 60 POC Glucose 193 H Random Glucose 173 H Calcium 8.5 Urine Osmolality 587 Ur Random Sodium 03/20/22 03/20/22 03/20/22 14:25 16:33 20:01 Anion Gap Estim Creat Clear Calc Estimated GFR POC Glucose 167 H 158 H Random Glucose Calcium Urine Osmolality Ur Random Sodium < 20.0 03/21/22 03/21/22 05:00 07:40 Anion Gap 10 L Estim Creat Clear Calc 85.5 Estimated GFR > 60 POC Glucose 161 H Random Glucose 154 H Calcium 8.5 Urine Osmolality Ur Random Sodium Microbiology Microbiology Results: Microbiology 03/17/22 19:29 Gram Stain - Final Ascites Fluid Anaerobic Culture - Preliminary No growth to date. Body Fluid Culture - Final No growth after 2 days Assessment and Plan (1) SAUL (acute kidney injury): Status: Acute (2) Ascites: Status: Acute Plan 56M PMH etoh cirrhosis (reports 1 year soberiety), DM, presented after VNA found patient covered in stool. found to have saul, hyponatremia, large ascites, hyperkalemia alcohol cirrhosis with symptomatic ascites, metabolic and hepatic encephalopathy continulactulose, rifaximin s/p paracentesis gi following medical management with lasix, avoid aldactone d/t high k SAUL--likely pre renal, resolved, nl Cr nephro following Hyperkalemia--Lokelma and resolved hypOnatremia, improving, not following restriction, salt tab Tachycardia--? chronic, get ecg Cogagulopathy--no bleeding, observe DM hold metformin insulin lactic acidosis due to liver disease not sepsis dvt prophylaxis- mechanical due to coagulopathy full code Need for inpatient :ongoing management of electrolytes abnormalities, saul, hi K, decompensated cirrhosis cannot be managed in less acute setting Time Spent With Patient Time: Total time managing care of this patient today ____ minutes. Quality Stroke Does the patient have a stroke diagnosis?: No VTE Prior VTE?: No VTE Risk Level:: Medical - moderate - high VTE Device Contraindication: N/A - Device Ordered VTE Drug Contraindication: Treatment Not Indicated
--- NOTE | 2022-03-21 10:57 | PM.PNNEP ---
Subjective Subjective Date of Service: 03/21/22 Interval history: seen and examined no complaints, wants to go home sodium is better, HR remasin high Physical Exam Vital Signs: Vital Signs: Last Vital Signs Temp 98.0 F 03/21/22 08:00 Pulse 117 H 03/21/22 08:00 Resp 20 03/21/22 08:00 BP 96/51 L 03/21/22 08:00 Pulse Ox 100 03/21/22 08:00 O2 Del Method 03/21/22 08:00 O2 Flow Rate 2 03/19/22 08:00 BMI result Body Mass Index 26.4 Const: General: no acute distress HEENT: Head: Yes normocephalic and Yes atraumatic Neck: Neck: Yes supple Resp: Auscultation: diminished lung sounds Cardio: Heart sounds: S1 normal heart sound present and S2 normal heart sound present GI: Palpation (GI): Soft to palpation and nontender Extrem: General: No pedal edema Objective Data Labs CBC & Chem 7: 03/18/22 05:11 03/21/22 05:00 Labs: Laboratory Results - last 24 hr 03/20/22 03/20/22 03/20/22 11:03 14:25 14:25 Sodium Potassium Chloride Carbon Dioxide Anion Gap BUN Creatinine Estim Creat Clear Calc Estimated GFR POC Glucose 193 H Random Glucose Calcium Urine Osmolality 587 Ur Random Sodium < 20.0 03/20/22 03/20/22 03/21/22 16:33 20:01 05:00 Sodium 128 L Potassium 4.5 Chloride 102 Carbon Dioxide 21 L Anion Gap 10 L BUN 18 H Creatinine 0.88 Estim Creat Clear Calc 85.5 Estimated GFR > 60 POC Glucose 167 H 158 H Random Glucose 154 H Calcium 8.5 Urine Osmolality Ur Random Sodium 03/21/22 07:40 Sodium Potassium Chloride Carbon Dioxide Anion Gap BUN Creatinine Estim Creat Clear Calc Estimated GFR POC Glucose 161 H Random Glucose Calcium Urine Osmolality Ur Random Sodium Microbiology Microbiology Results: Microbiology 03/17/22 19:29 Ascites Fluid Gram Stain - Final 03/17/22 19:29 Ascites Fluid Anaerobic Culture - Preliminary No growth to date. 03/17/22 19:29 Ascites Fluid Body Fluid Culture - Final No growth after 2 days 03/17/22 14:31 Blood - Venous Blood Culture - Preliminary No growth after 48 hours. 03/17/22 14:15 Blood - Venous Blood Culture - Preliminary No growth after 48 hours. Procedures Date of Service Date of Service: 03/21/22 Assessment & Plan Assessment and plan (1) SAUL (acute kidney injury): Status: Acute (2) Hyponatremia: Status: Acute (3) Liver cirrhosis: Status: Acute Plan Sna better today SAUL due to renal hypoperfusion resolved hyponatremia in the setting hepatic physiology Nicol < 20 and high Uosm REC continue fluid restriction combination sodium chloride tablet and furosemide 20 mg daily avoid urea follow kidney function and electrolytes Time Spent With Patient Time: Total time managing care of this patient today ____ minutes. Progress Note: Quality Stroke Does the patient have a stroke diagnosis?: No
[2022-03-21 11:02] VITALS: BP 99/51; PULSE 110; RESP 18; TEMP 36.6; O2SAT 100
[2022-03-21 11:20] LABS: Glucose, Whole Blood 169 mg/dL (60-115)
[2022-03-21 15:15] VITALS: BP 98/50; PULSE 116; RESP 18; TEMP 36.7; O2SAT 100
[2022-03-21 15:25] LABS: Glucose, Whole Blood 159 mg/dL (60-115)
--- NOTE | 2022-03-21 15:51 | PC.NURSE ---
At approximately 1430 pt requested to leave AMA. pt was evaluated by Mel becerril. pt made aware of risks and dangers of leaving. Pt states understanding. Pt signed AMA and discharge paperwork. IV was removed. Pt then stated he doesn't know he is getting home.
--- NOTE | 2022-03-21 19:32 | PM.DS ---
DS: Providers Provider Date of Service: 03/21/22 Date of admission: 03/17/22 16:25 Primary care physician: Maren Carvajal MD Consults: 03/17/22 16:24 Consult to Gastroenterology Routine Consulting Provider: Aryan Churchill Reason for consultation: liver cirrhosis, ascites, saul 03/18/22 07:51 Consult to Nephrology Routine Consulting Provider: Rowdy Vargas Reason for consultation: SAUL, HypOnatremia Has provider been notified: No DS: Diagnosis Discharge Diagnosis (1) Ascites: Status: Resolved (2) Liver cirrhosis: Status: Inactive (3) Coagulopathy: Status: Resolved DS: Summary Hospital Course Hospital Course: Chief Complaint: found in stool 56M PMH etoh cirrhosis (reports 1 year soberiety), DM, presented after VNA found patient covered in stool. patient reports normally able to amublate with walker, reports recent progressive weakness, decreased appetite and po intake, increased abdominal distension, denies fever, chills, sob. in ED found to have significantly distended abdomen, diffuse skin excoriations,? labs significant for SAUL, hyopnatremia, hyperkalemia. Hospital course: 56M PMH etoh cirrhosis (reports 1 year soberiety), DM, presented after VNA found patient covered in stool. found to have saul, hyponatremia, large ascites, hyperkalemia, tachycardia, coagulopathy, diabetes and lactic acidosis. While still under treatment and monitoring, he elected to leave against medical advise --see nursing documentation and additional provider documentation on day of discharge for counceling received by patient. Final diagnoses Alcohol cirrhosis with symptomatic ascites, metabolic? and hepatic encephalopathy SAUL- Hyperkalemia hypOnatremia Tachycardia- Cogagulopathy DM Acute lactic acidosis Time Spent with Patient Time attestation: Total time managing care of this patient today ____ minutes. Discharge coordination time: Greater than 30 minutes Quality: Safe Use of Opioids Does Pt have an Active Cancer Diagnosis on the Problem List?: No Quality: Stroke Does the patient have a stroke diagnosis?: No Physical Exam Vital Signs: Vital Signs: Last Vital Signs Temp 98.1 F 03/21/22 15:15 Pulse 116 H 03/21/22 15:15 Resp 18 03/21/22 15:15 BP 98/50 L 03/21/22 15:15 Pulse Ox 100 03/21/22 15:15 O2 Del Method 03/21/22 15:15 O2 Flow Rate 2 03/19/22 08:00 BMI result Body Mass Index 26.4 DS: Data Data Completed and Pending Completed studies during hospitalization [Text1]: Procedures Detoxification Services for Substance Abuse Treatment (08/01/21) Drainage of Peritoneal Cavity, Percutaneous Approach (04/03/22) Discharge Plan Discharge Anticipated Discharge Date/Time: 03/21/22 15:00 Patient Disposition: Left Against Medical Advice Discharge Diagnosis: Hyponatremia, Ascietes and coagulopathy, SAUL Referrals: Maren Carvajal MD [Primary Care Provider] - 1 Week Discharge Medications: Continued folic acid 1 mg tablet 1 mg PO DAILY Qty: 90 2RF metformin 1,000 mg tablet 1,000 mg PO BID Qty: 60 2RF thiamine HCl (vitamin B1) 100 mg tablet 100 mg PO DAILY Qty: 90 2RF omeprazole 20 mg capsule,delayed release(DR/EC) 1 cap PO DAILY Discontinued lactulose 10 gram/15 mL solution 30 ml PO BID No Action insulin lispro 100 unit/mL Insulin Pen 0 sliding scale dose SUBCUT TIDAC Protocol: Insulin Correction Scale Less than or equal to 110 ---- Give (units): 0 111 to 150 Give (units): 0 151 to 200 Give (units): 2 201 to 250 Give (units): 4 251 to 300 Give (units): 6 301 to 350 Give (units): 8 Greater than 350 Give (units): 10 Call MD if Blood Glucose > : 350 magnesium oxide 400 mg magnesium Tablet 400 mg PO BID Xifaxan 550 mg Tablet 550 mg PO BID Qty: 60 0RF spironolactone 25 mg Tablet 25 mg PO DAILY Qty: 30 0RF Protocol: Hold for SBP< HOLD for SBP < : 90 furosemide 20 mg Tablet 20 mg PO DAILY Qty: 30 0RF Protocol: Hold for SBP< HOLD for SBP < : 90 sodium chloride 1,000 mg tablet,soluble 1,000 mg PO DAILY Qty: 30 0RF Discharge Orders: Discharge Order (Routine); Ordered 03/21/22 Ordered By: Mel Holloway Stand Alone Forms: Patient Portal Discharge page Care Plan Goals: see below Health Concerns: liver cirrhosis hyponatremia tachycardia hepatic encephalopathy Plan of Treatment: please take rifaximin, lactulose as prescribed dose of lactulose and Lasix have been changed call to schedule follow up with PCP Assessment: left against medical advice. Discharge Date/Time: 03/21/22 16:30
== END 2022-03-21 16:30 | disposition left against medical advice (07) | DRG 432 ==
LOC: HO.ED 14:09 → HO.EDOVER 16:29 → HO.S3 22:39
PROVIDERS: Internal Medicine; Internal Medicine Nephrology; Radiology Diagnostic Radiology; Admitting Provider Internal Medicine; Emergency Provider Student in an Organized Health Care Education/Training Program; PCP Internal Medicine; Visit Provider Internal Medicine
PROC: 0W9G3ZZ Drainage of Peritoneal Cavity, Percutaneous Approach (ICD-10-PCS; principal; 2022-03-17 18:10)
DX: K70.31 Alcoholic cirrhosis of liver with ascites (principal); G93.41 Metabolic encephalopathy; D68.4 Acquired coagulation factor deficiency; N17.9 Acute kidney failure, unspecified; E87.1 Hypo-osmolality and hyponatremia; E87.20 Acidosis, unspecified; E86.0 Dehydration; E87.5 Hyperkalemia; F10.21 Alcohol dependence, in remission; E11.42 Type 2 diabetes mellitus with diabetic polyneuropathy; K76.82 Hepatic encephalopathy; R00.0 Tachycardia, unspecified; Z20.822 Contact with and (suspected) exposure to COVID-19; Z91.14 Patient's other noncompliance with medication regimen; Z88.5 Allergy status to narcotic agent; Z88.6 Allergy status to analgesic agent; Z79.84 Long term (current) use of oral hypoglycemic drugs; Z79.899 Other long term (current) drug therapy
CPT/HCPCS: 36415; 49083; 71045; 80048; 80053; 82140; 82947; 83605; 83690; 83935; 84300; 84484; 85025; 85027; 85610; 87040; 87070; 87073; 87205; 87502; 87635; 89051; 93005; 99285; P9047

== ENCOUNTER 2022-03-21 19:45 | Emergency (ER) | payer OTHER, MEDICAID, SELFPAY ==
[2022-03-21 19:53] VITALS: BP 97/51; PULSE 113; RESP 20; TEMP 36.8; O2SAT 100; BMI 29.8
--- NOTE | 2022-03-21 20:28 | ED.FALL ---
HPI - Fall General Chief Complaint: Fall Stated Complaint: Unwitnessed Fall/Left AMA Time Seen by Provider: 03/21/22 20:28 Source: patient Mode of arrival: wheelchair Limitations: no limitations History of Present Illness HPI Narrative: Patient 56 years old with alcoholic cirrhosis, diabetes, SAUL, hyponatremia was admitted here on 03/17 signed AMA just prior to arrival was in the lobby waiting for ride to come per witness patient was on the wheelchair tried to get up instead slided down to the ground without any significant injuries now patient unable to go home feel weak and came to the ER per record patient supposed to be on sodium tablets and furosemide and plan for discharge in a day Related Data Home Medications Medication Instructions Recorded Confirmed furosemide 40 mg tablet 1 tab PO DAILY 03/17/22 03/17/22 lactulose 10 gram/15 mL oral 30 ml PO BID 03/17/22 03/17/22 solution omeprazole 20 mg capsule,delayed 1 cap PO DAILY 03/17/22 03/17/22 release Previous Rx's Medication Instructions Recorded spironolactone 50 mg tablet 50 mg PO DAILY #30 tabs 12/26/21 (Aldactone) folic acid 1 mg tablet 1 mg PO DAILY #90 tabs 03/05/22 metformin 1,000 mg tablet 1,000 mg PO BID #60 tabs 03/05/22 thiamine HCl (vitamin B1) 100 mg 100 mg PO DAILY #90 tabs 03/05/22 tablet furosemide 20 mg tablet (Lasix) 20 mg PO DAILY 30 days #30 tabs 03/21/22 lactulose 20 gram/30 mL oral 20 g (30 mL) PO BID 30 days #1,800 03/21/22 solution mL rifaximin 550 mg tablet (Xifaxan) 550 mg PO BID 30 days #60 tabs 03/21/22 sodium chloride 1,000 mg soluble 1,000 mg PO DAILY #30 tabs 03/22/22 tablet Allergies Allergy/AdvReac Type Severity Reaction Status Date / Time acetaminophen [From PERCOCET] Allergy Severe AGITATION Verified 03/21/22 19:47 oxycodone [From PERCOCET] Allergy Severe AGITATION Verified 03/21/22 19:47 bee pollen [Bee Stings] Allergy Mild SWELLING Verified 03/21/22 19:47 lorazepam AdvReac Unknown AGITATION Verified 03/21/22 19:47 Review of Systems Review of Systems: Yes all other systems are reviewed and are negative [facility] Past Medical History Medical History SAUL (acute kidney injury) Alcohol abuse Ascites Diabetes Elevated liver enzymes Hypertension Liver cirrhosis Pressure ulcer Withdrawal seizures Surgical History No pertinent past surgical history Family History Family History Other No family history of coronary artery disease Social History Social History Household Members: Spouse Housing: Apartment Do you presently have visiting nurse or other home services: Yes Alcohol intake: former Patient Tobacco Use Status: Never used Tobacco Tobacco use type: Smokeless Tobacco Second Hand Smoke Exposure: No Advance Directives: Yes Advance Directives on File: Yes Advance Directives Date on File: 03/18/22 service: Yes Current occupational status: unemployed Physical Exam Vital Signs: Vital Signs: Last Vital Signs Temp 97.5 F 03/21/22 20:36 Pulse 120 H 03/22/22 00:42 Resp 18 03/22/22 00:42 BP 104/59 L 03/22/22 00:42 Pulse Ox 99 03/21/22 22:35 O2 Del Method 03/21/22 22:35 BMI result Body Mass Index 29.8 Appearance: Alert. Oriented X3. No acute distress. Eyes: PERRLA, No Nystagmus ENT: Pharynx normal. Oral Mucosa moist atraumatic normocephalic Neck: Normal inspection. Neck supple. CVS: Normal heart rate and rhythm. Pulses normal. Respiratory: No respiratory distress. Equal air entry bilateral, no wheezing/rales/rhonchi Abdomen: Free fluid++ nontender. Bowel sounds are present, no mass palpable, no CVA tenderness Skin: Skin warm and dry. Normal skin color. Normal skin turgor. Extremities: No lower extremity edema. No calf tenderness Neuro: Oriented X 3. No motor deficit. Medications Administered Discontinued Medications Generic Name Dose Route Start Last Admin Trade Name Freq PRN Reason Stop Dose Admin Midodrine 10 mg 03/22/22 00:39 03/22/22 00:44 Midodrine Hcl 10 Mg Tablet PO 03/22/22 00:40 10 mg ONCE ONE Administration Medical Decision Making Medical Decision Making [facility] Narrative: Patient with no signs of injury feeling weak does not want to go to [facility] has VNA arranged at home would like to go home but family unable to come and pick him up. Will keep patient in the ER consult case management for placement Discharge Plan Discharge Clinical Impression: Liver cirrhosis, Ascites, Acute hyponatremia Patient Disposition: Still a Patient Additional Instructions: Fluid restriction to 1200 cc a day Continue furosemide 20 mg daily start taking sodium tablets daily Follow-up with GI specialist/PCP Prescriptions: New sodium chloride 1,000 mg tablet,soluble 1,000 mg PO DAILY Qty: 30 0RF No Action folic acid 1 mg tablet 1 mg PO DAILY Qty: 90 2RF metformin 1,000 mg tablet 1,000 mg PO BID Qty: 60 2RF thiamine HCl (vitamin B1) 100 mg tablet 100 mg PO DAILY Qty: 90 2RF spironolactone [Aldactone] 50 mg tablet 50 mg PO DAILY Qty: 30 0RF furosemide 40 mg tablet 1 tab PO DAILY omeprazole 20 mg capsule,delayed release(DR/EC) 1 cap PO DAILY lactulose 10 gram/15 mL solution 30 ml PO BID Xifaxan 550 mg Tablet 550 mg PO BID 30 Days Qty: 60 0RF lactulose 20 gram/30 mL Solution 20 g PO BID 30 Days Qty: 1800 0RF furosemide [Lasix] 20 mg tablet 20 mg PO DAILY 30 Days Qty: 30 0RF
[2022-03-21 20:36] VITALS: BP 123/40; PULSE 113; TEMP 36.4; O2SAT 100
[2022-03-21 22:35] VITALS: BP 89/39; PULSE 112; O2SAT 99
[2022-03-22 00:42] VITALS: BP 104/59; PULSE 120; RESP 18
[2022-03-22] MEDS: Midodrine HCl 10 MG TABLET PO (00:44)
[2022-03-22 01:43] VITALS: BP 99/52; PULSE 114; RESP 16; TEMP 36.8; O2SAT 100
--- NOTE | 2022-03-22 01:46 | MHC.EDTECH ---
PT INCONTINENT OF URINE AND STOOL. PT GIVEN IBIS CARE, BEDDING CHANGED AND NEW GOWN GIVEN.
--- NOTE | 2022-03-22 01:57 | PC.NURSE ---
PT UNABLE TO FIND A RIDE HOME. PT FAMILY UNABLE TO PROVIDE TRANSPORTATION HOME FOR PT. DR SHEN AND PT AGREEABLE TO WAIT UNTIL MORNING TO ASSESS FOR ACCESSIBILITY TO TRANSPORTATION HOME FOR PT.
[2022-03-22 04:51] VITALS: BP 90/51; PULSE 111; RESP 16
--- NOTE | 2022-03-22 04:51 | PC.NURSE ---
pt previously medicated with midodrine. this rn rechecked bp @ this time, R arm BP 90/51. Dr Ardon notified of BP. per md no new orders at this time.
[2022-03-22 06:41] VITALS: BP 86/41; PULSE 101; RESP 14; TEMP 36.8; O2SAT 99
--- NOTE | 2022-03-22 06:42 | PC.NURSE ---
this rn updated VS BP 86/4. this rn attempted to recheck BP with pt laying on back. pt refused. md made aware of bp and of refusal
--- NOTE | 2022-03-22 09:31 | MHC.CM.ED ---
Received consult for d/c planning needs: pt left AMA on 03/21 and fell out of w/c while waiting for a ride in the lobby. He was brought back to the ED for placement per MD. Met with pt who was quite cantankerous and denied wanting placement. I just got out of a *[id number]^$[id number]# facility, why would I want to go back? Pt states he needs a ride to home and nothing else Call placed to windows infrastructure engineer/S.OLeo Zacarias who states she doesn't drive and preferred pt to return via BLS for safety d/t pt fall hx. Pt will d/c to home via [facility] as soon as they have an available vehicle. Pt and ED staff aware and in agreement of plan.
[2022-03-22 14:01] VITALS: BP 107/60; PULSE 108; RESP 20; O2SAT 100
== END 2022-03-22 14:02 | disposition home or self-care (01) ==
PROVIDERS: Emergency Provider Internal Medicine
DX: K74.60 Unspecified cirrhosis of liver (principal); R18.8 Other ascites; E87.1 Hypo-osmolality and hyponatremia; I95.9 Hypotension, unspecified; E11.9 Type 2 diabetes mellitus without complications; I10 Essential (primary) hypertension; F10.10 Alcohol abuse, uncomplicated; F17.200 Nicotine dependence, unspecified, uncomplicated; Z79.84 Long term (current) use of oral hypoglycemic drugs; Z79.899 Other long term (current) drug therapy
CPT/HCPCS: 99284; 99285

== ENCOUNTER 2022-04-03 11:19 | Inpatient (IN) | payer OTHER, MEDICAID, SELFPAY ==
--- NOTE | ~2022-04-03 | CT_ITS ---
EXAMINATION: CT HEAD WITHOUT CONTRAST CLINICAL INFORMATION: Altered mental status. COMPARISON: Head CT scan dated 02/09/2022. TECHNIQUE: Contiguous axial imaging was performed from the skull base to vertex without intravenous administration of contrast. Coronal and sagittal reformatted images were obtained. This CT examination was performed using dose optimization techniques as appropriate, variously including the following: *Automated exposure control *Adjustment of mA and/or kV according to patient size (this includes techniques or standardized protocols for targeted exams where dose is matched to indication/reason for exam; i.e. extremities or head) *Use of iterative reconstruction technique DLP: 691 mGy-cm FINDINGS: There is mild widening of the cortical sulci and associated ventriculomegaly. Mild periventricular microvascular changes are seen. The lateral ventricles are symmetrical. The third and fourth ventricles are in their normal midline position. The basilar and prepontine cisterns are unremarkable. There is no acute intra or extracerebral abnormality. There is no mass effect or midline shift. Sections through the bony calvarium are unremarkable. The orbits are intact. The paranasal sinuses are clear. The mastoid air cells are clear. CT/CT head/brain wo IV con IMPRESSION: No acute intracranial pathology.
--- NOTE | ~2022-04-03 | US_ITS ---
EXAMINATION: ULTRASOUND-GUIDED PARACENTESIS. CLINICAL INFORMATION: Significant abdominal pain. COMPARISON: None TECHNIQUE: Following explaining ultrasound-guided paracentesis procedure, benefits and risk the patient a written consent was obtained. Patient was transferred to ICU on ICU bed. Pulmonary ultrasound imaging was performed and optimal site was selected along the right mid quadrant laterally. The area was marked, cleaned and draped in usual sterile manner. 1% lidocaine was administered at puncture site. Through a small skin incision a 5 [place] Yueh catheter was advanced into the peritoneal space. After observing fluid return stylet was withdrawn and catheter connected to vacuum bottle. After obtaining almost all fluid and observing no more fluid return, catheter was withdrawn and complete hemostasis achieved at puncture site. Sterile Band-Aid applied postprocedure. Patient tolerated procedure extremely well. Patient was monitored by ICU nurse during the procedure. FINDINGS: On preliminary ultrasound imaging there is moderate to large ascites. Approximately 7.8 L of fluid was removed. Part of this fluid was sent to lab for further analysis as requested by the referring physician. US/US paracentesis abd w/image IMPRESSION: Successful therapeutic and diagnostic ultrasound-guided paracentesis performed.
--- NOTE | ~2022-04-03 | XR_ITS ---
EXAMINATION: XR CHEST CLINICAL INFORMATION: Mental status change. COMPARISON: 03/17/2022 chest radiograph. TECHNIQUE: Frontal view of the chest was obtained. FINDINGS: There is mild elevation of the right hemidiaphragm. The lungs are clear. The heart and mediastinal structures are unremarkable. XR/XR chest 1V IMPRESSION: No acute cardiopulmonary process.
--- NOTE | ~2022-04-03 | US_ITS ---
EXAMINATION: US ABDOMEN COMPLETE CLINICAL INFORMATION: Ascites.. COMPARISON: Abdomen CT from 12/23/2021. TECHNIQUE: Real-time imaging of the abdominal viscera. FINDINGS: PANCREAS: Obscured by bowel gas. ABDOMINAL AORTA: Not well seen, obscured by bowel gas. INFERIOR VENA CAVA: Obscured by bowel gas. LIVER: The cirrhotic liver is contracted, has coarse hyperechoic parenchyma and nodular contour. No focal lesion. GALLBLADDER: Gallbladder appears to be contracted and is not well seen. There is likely cholelithiasis (image 27/46). There were findings suggestive of porcelain gallbladder and/or rim calcified stones on 12/23/2021. COMMON BILE DUCT: Normal in caliber measuring 0.3 cm in diameter. RIGHT KIDNEY: Normal. No hydronephrosis. No renal calculi or focal parenchymal lesions. The kidney measures 10.1 cm in maximum dimension. LEFT KIDNEY: Not visualized, obscured by bowel. SPLEEN: The spleen cannot be sonographically visualized. FREE FLUID: Moderate to large volume of ascitic fluid is present within the abdomen. US/US abdomen complete IMPRESSION: * Moderate to large volume of abdominal ascites is present. * This ultrasound examination of the abdomen is limited by patient body habitus, bowel gas and ascites. * Cirrhotic liver. * Gallbladder is contracted, poorly evaluated. No dilated bile ducts.
[2022-04-03 11:27] VITALS: BP 120/70; PULSE 130
[2022-04-03 11:45] VITALS: BP 109/68; PULSE 114; RESP 17; TEMP 36.9; O2SAT 98; BMI 14.5
--- NOTE | 2022-04-03 12:07 | ECG_ITS ---
Test Reason : MENTAL STATUS CHANGE Blood Pressure : / mmHG Vent. Rate : 109 BPM Atrial Rate : 109 BPM P-R Int : 142 ms QRS Dur : 076 ms QT Int : 324 ms P-R-T Axes : 042 050 044 degrees QTc Int : 436 ms Sinus tachycardia Low voltage QRS Borderline ECG When compared with ECG of 21-MAR-2022 10:26, No significant change was found Referred By: Emiliano Portillo Electronically Signed By:Ian Saenz
--- NOTE | 2022-04-03 12:09 | ED.AMS ---
HPI - Altered Mental Status General Chief Complaint: Altered Mental Status Stated Complaint: AMS Time Seen by Provider: 04/03/22 12:03 Source: patient, EMS and old records reviewed Mode of arrival: EMS Limitations: no limitations History of Present Illness HPI narrative: 56-year-old male with history of EtOH cirrhosis (patient sober for 1 year) patient was found at home by VNA covered in stool and urine did not leave the couch probably for 3 days, patient is lethargic for more than his baseline. Patient otherwise decline chest pain or abdominal pain or nausea or vomiting. Patient had similar presentation in the past with secondary to dehydration and SAUL. Related Data Home Medications Medication Instructions Recorded Confirmed lactulose 10 gram/15 mL oral 30 ml PO BID 03/17/22 04/03/22 solution omeprazole 20 mg capsule,delayed 1 cap PO DAILY 03/17/22 04/03/22 release insulin lispro 100 unit/mL 0 sliding scale dose subcut TIDAC 04/03/22 04/03/22 subcutaneous pen magnesium oxide 400 mg PO BID 04/03/22 04/03/22 Previous Rx's Medication Instructions Recorded spironolactone 50 mg tablet 50 mg PO DAILY #30 tabs 12/26/21 (Aldactone) folic acid 1 mg tablet 1 mg PO DAILY #90 tabs 03/05/22 metformin 1,000 mg tablet 1,000 mg PO BID #60 tabs 03/05/22 thiamine HCl (vitamin B1) 100 mg 100 mg PO DAILY #90 tabs 03/05/22 tablet furosemide 20 mg tablet (Lasix) 20 mg PO DAILY 30 days #30 tabs 03/21/22 sodium chloride 1,000 mg soluble 1,000 mg PO DAILY #30 tabs 03/22/22 tablet Allergies Allergy/AdvReac Type Severity Reaction Status Date / Time acetaminophen [From PERCOCET] Allergy Severe AGITATION Verified 03/21/22 19:47 oxycodone [From PERCOCET] Allergy Severe AGITATION Verified 03/21/22 19:47 bee pollen [Bee Stings] Allergy Mild SWELLING Verified 03/21/22 19:47 lorazepam AdvReac Unknown AGITATION Verified 03/21/22 19:47 Review of Systems Review of Systems: Yes Unobtainable due to mental status PMFSH Past Medical History Medical History SAUL (acute kidney injury) Alcohol abuse Ascites Diabetes Elevated liver enzymes Hypertension Liver cirrhosis Pressure ulcer Withdrawal seizures Surgical History No pertinent past surgical history Family History Family History Other No family history of coronary artery disease Social History Social History Household Members: Spouse Housing: Apartment Do you presently have visiting nurse or other home services: Yes Alcohol intake: former Patient Tobacco Use Status: Never used Tobacco Tobacco use type: Smokeless Tobacco Second Hand Smoke Exposure: No Advance Directives: Yes Advance Directives on File: Yes Advance Directives Date on File: 03/18/22 service: Yes Current occupational status: unemployed Physical Exam ED Vital Signs: Vital Signs - 24 hr 04/03/22 11:45 04/03/22 12:31 04/03/22 14:41 Temperature 98.5 F Pulse Rate 114 H 108 H 99 Respiratory Rate 17 15 13 Blood Pressure 109/68 106/72 95/60 Pulse Oximetry 98 100 100 Oxygen Delivery Method Room Air Room Air Room Air BMI result Body Mass Index 14.5 Vital signs have been reviewed as appeared to be correct. Blood pressure normal. Heart rate normal. Respiration rate normal. Temperature normal. Oxygen saturation normal. Appearance: Alert. Oriented X3. No acute distress. Head: Normal external exam. Normocephalic. Atraumatic. No Bradley signs noted. No raccoon eyes noted Eyes: PERRLA. EOMI. Conjunctiva and sclera normal. Eyelids normal. ENT: TM's Normal. Pharynx normal. Uvula midline. Moist mucous membranes. No trismus noted. No drooling noted. No muffled voice noted. Neck: Normal inspection. Neck supple. FROM. No adenopathy. Thyroid Normal. No meningeal signs. No neck mass noted. CVS: Normal heart rate and rhythm. Heart sound normal. No murmurs noted. Pulses normal throughout. Respiratory: No respiratory distress. Painless inspiration. Breath sounds normal. No wheezes/rales/rhonchi noted. Chest nontender. No accessory muscle usage noted or decreased air movement noted. Abdomen: Soft and nontender. Bowel sounds normal in all 4 quadrants. No distention noted. No organomegaly noted. No visible injury noted. Back: No CVA tenderness. Full range of motion noted. Skin: Skin warm and dry. Normal skin color. Normal skin turgor. No rashes/lesions/lacerations noted. Extremities: No lower extremity edema. Extremities exhibit normal range of motion. Extremities nontender. Neuro: Oriented X 3. Cranial nerve exam: II-XII are grossly intact No motor deficit. No sensory deficit. Reflexes normal. Course Course Course Narrative: Mental status change likely due to metabolic encephalopathy normal ammonia level. Lactic acidosis which is chronic due to chronic hepatic cirrhosis no source of infection or evidence of septic shock. Medical Decision Making Differential Diagnosis Differential Diagnoses: The differential diagnosis associated with the presentation includes (Hepatic encephalopathy, metabolic encephalopathy, electrolyte disturbance.) Admission/Observation Consideration of admission/observation: Escalation of care including admission/observation considered Consult Healthcare Provider Management of the patient was discussed with: Hospitalist Lab Data MDM Lab Attestation statement: I reviewed the patient's lab results. 04/03/22 12:27 04/03/22 12:27 Labs: Lab Results 04/03/22 04/03/22 04/03/22 Range/Units 12:27 12:27 12:27 WBC 11.4 H (4.8-10.8) X10*3/uL RBC 3.31 L (4.60-5.80) X10*6/uL Hgb 11.7 L (14.0-18.0) g/dl Hct 33.4 L (42.0-52.0) % MCV 100.9 H (80.0-98.0) fL MCH 35.3 H (27.0-33.0) pg MCHC 35.0 (31.0-36.0) g/dl RDW 16.3 H (11.0-16.0) % Plt Count 133 L D (160-400) X10*3/uL MPV 9.3 L (9.4-12.4) fL Immature Gran % (Auto) 0.6 H (0.0-0.4) % Neut % (Auto) 79.2 H (45-73) % Lymph % (Auto) 8.7 L (20-40) % [place] % (Auto) 9.6 (2-11) % Eos % (Auto) 1.5 (0-4) % Baso % (Auto) 0.4 (0-2) % Lymph # (Auto) 1.0 L (1.2-4.9) X10*3/uL [place] # (Auto) 1.1 (0.1-1.2) X10*3/uL Eos # (Auto) 0.2 (0.0-0.4) X10*3/uL Baso # (Auto) 0.0 (0.0-0.2) X10*3/uL Abs Immat Gran (auto) 0.07 H (0.00-0.03) X10*3/uL Absolute Neuts (auto) 9.0 H (2.0-8.3) x10*3/uL Absolute Nucleated RBC 0.000 (0.0-0.012) X10*3/uL Nucleated RBC % (auto) 0.0 (0.0-0.2) /100WBC Sodium 127 L (135-145) mmol/L Potassium 5.4 H (3.3-5.1) mmol/L Chloride 98 (96-108) mmol/L Carbon Dioxide 19 L (22-29) mmol/L Anion Gap 15 (12-20) BUN 32 H (9-16) mg/dL Creatinine 1.36 (0.5-1.4) mg/dL Estim Creat Clear Calc 35.5 Estimated GFR 54 Random Glucose 176 H (60-115) mg/dL Lactic Acid 4.9 H* (0.5-2.0) mmol/L Calcium 9.7 D (8.4-10.2) mg/dL Total Bilirubin 4.2 H (0.0-1.0) mg/dL Direct Bilirubin 1.4 H (0.0-0.5) mg/dL AST 47 H (5-37) U/L ALT 27 (0-40) U/L Alkaline Phosphatase 150 H (39-117) U/L Ammonia (13-55) umol/L Total Creatine Kinase 151 (38-174) U/L Troponin I High Sens (<3.5-35.0) ng/L Total Protein 7.0 (6.5-8.0) g/dL Albumin 2.6 L (3.5-5.0) g/dL Lipase 30 (8-78) U/L Urine Color Urine Appearance Urine pH (5.0-9.0) Ur Specific [place] (1.005-1.025) Urine Protein (Neg-Trace) mg/dL Urine Glucose (UA) (Negative) mg/dL Urine Ketones (Negative) mg/dL Urine Blood (Negative) Urine Nitrite (Negative) Ur Leukocyte Esterase (Negative) Urine RBC (0-2) /HPF Urine WBC (0-5) /HPF Ur Squamous Epith Cells (0-2) /HPF Urine Bacteria (None Seen) Hyaline Casts (0-2) /LPF Influenza Type A (PCR) (Negative) Influenza Type B (PCR) (Negative) RSV RNA Qual (PCR) (Negative) SARS-CoV-2 RNA (RT-PCR) (Negative) 04/03/22 04/03/22 04/03/22 Range/Units 12:27 12:27 12:27 WBC (4.8-10.8) X10*3/uL RBC (4.60-5.80) X10*6/uL Hgb (14.0-18.0) g/dl Hct (42.0-52.0) % MCV (80.0-98.0) fL MCH (27.0-33.0) pg MCHC (31.0-36.0) g/dl RDW (11.0-16.0) % Plt Count (160-400) X10*3/uL MPV (9.4-12.4) fL Immature Gran % (Auto) (0.0-0.4) % Neut % (Auto) (45-73) % Lymph % (Auto) (20-40) % [place] % (Auto) (2-11) % Eos % (Auto) (0-4) % Baso % (Auto) (0-2) % Lymph # (Auto) (1.2-4.9) X10*3/uL [place] # (Auto) (0.1-1.2) X10*3/uL Eos # (Auto) (0.0-0.4) X10*3/uL Baso # (Auto) (0.0-0.2) X10*3/uL Abs Immat Gran (auto) (0.00-0.03) X10*3/uL Absolute Neuts (auto) (2.0-8.3) x10*3/uL Absolute Nucleated RBC (0.0-0.012) X10*3/uL Nucleated RBC % (auto) (0.0-0.2) /100WBC Sodium (135-145) mmol/L Potassium (3.3-5.1) mmol/L Chloride (96-108) mmol/L Carbon Dioxide (22-29) mmol/L Anion Gap (12-20) BUN (9-16) mg/dL Creatinine (0.5-1.4) mg/dL Estim Creat Clear Calc Estimated GFR Random Glucose (60-115) mg/dL Lactic Acid (0.5-2.0) mmol/L Calcium (8.4-10.2) mg/dL Total Bilirubin (0.0-1.0) mg/dL Direct Bilirubin (0.0-0.5) mg/dL AST (5-37) U/L ALT (0-40) U/L Alkaline Phosphatase (39-117) U/L Ammonia 50 (13-55) umol/L Total Creatine Kinase (38-174) U/L Troponin I High Sens 5.4 (<3.5-35.0) ng/L Total Protein (6.5-8.0) g/dL Albumin (3.5-5.0) g/dL Lipase (8-78) U/L Urine Color Urine Appearance Urine pH (5.0-9.0) Ur Specific [place] (1.005-1.025) Urine Protein (Neg-Trace) mg/dL Urine Glucose (UA) (Negative) mg/dL Urine Ketones (Negative) mg/dL Urine Blood (Negative) Urine Nitrite (Negative) Ur Leukocyte Esterase (Negative) Urine RBC (0-2) /HPF Urine WBC (0-5) /HPF Ur Squamous Epith Cells (0-2) /HPF Urine Bacteria (None Seen) Hyaline Casts (0-2) /LPF Influenza Type A (PCR) NEGATIVE (Negative) Influenza Type B (PCR) NEGATIVE (Negative) RSV RNA Qual (PCR) NEGATIVE (Negative) SARS-CoV-2 RNA (RT-PCR) NEGATIVE (Negative) 04/03/22 Range/Units 15:15 WBC (4.8-10.8) X10*3/uL RBC (4.60-5.80) X10*6/uL Hgb (14.0-18.0) g/dl Hct (42.0-52.0) % MCV (80.0-98.0) fL MCH (27.0-33.0) pg MCHC (31.0-36.0) g/dl RDW (11.0-16.0) % Plt Count (160-400) X10*3/uL MPV (9.4-12.4) fL Immature Gran % (Auto) (0.0-0.4) % Neut % (Auto) (45-73) % Lymph % (Auto) (20-40) % [place] % (Auto) (2-11) % Eos % (Auto) (0-4) % Baso % (Auto) (0-2) % Lymph # (Auto) (1.2-4.9) X10*3/uL [place] # (Auto) (0.1-1.2) X10*3/uL Eos # (Auto) (0.0-0.4) X10*3/uL Baso # (Auto) (0.0-0.2) X10*3/uL Abs Immat Gran (auto) (0.00-0.03) X10*3/uL Absolute Neuts (auto) (2.0-8.3) x10*3/uL Absolute Nucleated RBC (0.0-0.012) X10*3/uL Nucleated RBC % (auto) (0.0-0.2) /100WBC Sodium (135-145) mmol/L Potassium (3.3-5.1) mmol/L Chloride (96-108) mmol/L Carbon Dioxide (22-29) mmol/L Anion Gap (12-20) BUN (9-16) mg/dL Creatinine (0.5-1.4) mg/dL Estim Creat Clear Calc Estimated GFR Random Glucose (60-115) mg/dL Lactic Acid (0.5-2.0) mmol/L Calcium (8.4-10.2) mg/dL Total Bilirubin (0.0-1.0) mg/dL Direct Bilirubin (0.0-0.5) mg/dL AST (5-37) U/L ALT (0-40) U/L Alkaline Phosphatase (39-117) U/L Ammonia (13-55) umol/L Total Creatine Kinase (38-174) U/L Troponin I High Sens (<3.5-35.0) ng/L Total Protein (6.5-8.0) g/dL Albumin (3.5-5.0) g/dL Lipase (8-78) U/L Urine Color Dark Yellow Urine Appearance Clear Urine pH 5.5 (5.0-9.0) Ur Specific [place] 1.025 (1.005-1.025) Urine Protein Trace (Neg-Trace) mg/dL Urine Glucose (UA) Negative (Negative) mg/dL Urine Ketones Trace (Negative) mg/dL Urine Blood Negative (Negative) Urine Nitrite Negative (Negative) Ur Leukocyte Esterase Trace H (Negative) Urine RBC 3-5 H (0-2) /HPF Urine WBC 0-5 (0-5) /HPF Ur Squamous Epith Cells 0-2 (0-2) /HPF Urine Bacteria None Seen (None Seen) Hyaline Casts 3-5 (0-2) /LPF Influenza Type A (PCR) (Negative) Influenza Type B (PCR) (Negative) RSV RNA Qual (PCR) (Negative) SARS-CoV-2 RNA (RT-PCR) (Negative) Independent Interpretation I performed an independent interpretation of an: Plain X-Ray (Chest: No acute intrathoracic pathology.) and CT Scan (Head: No acute intracranial pathology.) Radiology Impression Discussion of test interpretation with radiology: I have reviewed the radiologist's reading. Discharge Plan Discharge Clinical Impression: Altered mental status, Delirium due to general medical condition, Acute hyponatremia, Acute hyperkalemia, Acidosis, lactic Patient Disposition: Admitted As Inpatient
[2022-04-03 12:31] VITALS: BP 106/72; PULSE 108; RESP 15; O2SAT 100
[2022-04-03 12:34] LABS: MANUAL DIFF FLAG NO
[2022-04-03 12:36] LABS: Basophils Percent Auto 0.4 % (0-2); Eosinophils Absolute Auto 0.2 X10*3/uL (0.0-0.4); Eosinophils Percent Auto 1.5 % (0-4); Hematocrit 33.4 % (42.0-52.0); Hemoglobin 11.7 g/dl (14.0-18.0); Imm Gran Abs Auto 0.07 X10*3/uL (0.00-0.03); Imm Gran Pct Auto 0.6 % (0.0-0.4); Lymphocytes Percent Auto 8.7 % (20-40); Mean Corpuscular Hemoglobin 35.3 pg (27.0-33.0); Mean Corpuscular Volume 100.9 fL (80.0-98.0); Mean Platelet Volume 9.3 fL (9.4-12.4); Monocytes Absolute Auto 1.1 X10*3/uL (0.1-1.2); Monocytes Percent Auto 9.6 % (2-11); Neutrophils Percent Auto 79.2 % (45-73); Platelet Count 133 X10*3/uL (160-400); Red Blood Count 3.31 X10*6/uL (4.60-5.80); Red Cell Distribution Width 16.3 % (11.0-16.0); White Blood Count 11.4 X10*3/uL (4.8-10.8)
[2022-04-03 12:45] LABS: Ammonia 50 umol/L (13-55)
[2022-04-03 12:55] LABS: Alanine Aminotransferase 27 U/L (0-40); Albumin Level 2.6 g/dL (3.5-5.0); Alkaline Phosphatase 150 U/L (39-117); Anion Gap 15 (12-20); Aspartate Amino Transferase 47 U/L (5-37); Bilirubin Direct 1.4 mg/dL (0.0-0.5); Bilirubin Total 4.2 mg/dL (0.0-1.0); Blood Urea Nitrogen 32 mg/dL (9-16); Calcium 9.7 mg/dL (8.4-10.2); Carbon Dioxide 19 mmol/L (22-29); Chloride 98 mmol/L (96-108); Creatinine Clr Calc Pharmacy 35.5; Estimated Glomerular Filt Rate 54; Glucose Random 176 mg/dL (60-115); Lipase 30 U/L (8-78); Potassium 5.4 mmol/L (3.3-5.1); Sodium 127 mmol/L (135-145)
[2022-04-03 13:02] LABS: Troponin-I High Sensitivity 5.4 ng/L (<3.5-35.0)
[2022-04-03 13:05] LABS: Lactic Acid 4.9 mmol/L (0.5-2.0)
[2022-04-03 13:19] LABS: Influenza A PCR NEGATIVE (Negative); Influenza B PCR NEGATIVE (Negative); Resp Syncy Virus RNA Qual PCR NEGATIVE (Negative); SARS COV2 PCR INHOUSE NEGATIVE (Negative)
--- NOTE | 2022-04-03 13:50 | PHA.MEDREC ---
Pharmacy Consult ? Medication Reconciliation Pharmacy has completed the medication reconciliation. I received a list from [facility]. List did not have newer prescription therefore contact Deann to confirm the rest of the medications. Lactulose of [facility] list mention QID but Deann reports newest bottle has BID dosing. Annie Zuleta, PharmD
[2022-04-03 14:33] LABS: Reflex Lactate? Lactic Acid Added
[2022-04-03 14:41] VITALS: BP 95/60; PULSE 99; RESP 13; O2SAT 100
[2022-04-03 15:26] LABS: Appearance Urine Clear; Color Urine Dark Yellow; Glucose Urine UA Negative (Negative); Leukocyte Esterase Urine Trace (Negative); Nitrite Urine Negative (Negative); PH 5.5 (5.0-9.0); Specific Gravity - Urine 1.025 (1.005-1.025); UMIC TRIGGER UACC YES; Urine Blood Negative (Negative); Urine Ketones Trace mg/dL (Negative); Urine Protein Trace mg/dL (Neg-Trace)
[2022-04-03 15:37] LABS: Bacteria Urine None Seen (None Seen); Squamous Epithelial Cell Urine 0-2 /HPF (0-2); WBC Urine 0-5 /HPF (0-5)
--- NOTE | 2022-04-03 16:30 | PM.IMHP ---
History of Present Illness Date of Service: 04/03/22 <LESLEE Wolfe - Last Filed: 04/03/22 18:02> Attending physician on admission: Jono Arellano <LESLEE Wolfe - Last Filed: 04/03/22 18:02> Chief Complaint: AMS <LESLEE Wolfe - Last Filed: 04/03/22 18:02> Pt is a 56-year-old male with a PMH significant for?ETOH cirrhosis (reports over 1 year sober), ascites, alcohol use disorder, and [id number] DM 2 who presents to the ED after VNA found patient had a covered in stool and urine. Suspects he has not left the couch and 2-3 days. Patient was found more lethargic than his baseline. Patient found to be oriented to person and place but not time. Patient cooperative during interview, but states he came to the ED because he was ?bored? with ?nothing to do?. Patient has no complaints. Denies fever, chills, nausea, vomiting. No chest pain/pressure, palpitations. Denies shortness of breath, abdominal pains, any difficulties or changes to bowel or bladder habits. In the ED labs were significant for leukocytosis of 11.4, H&H 11.7/33.4 (near baseline), hyponatremia of 127, hyperkalemia of 5.4, creatinine of 1.36 (baseline 0.8) elevated BUN of 32, lactic acid of 4.9, total bilirubin of 4.2, direct bilirubin 1.4, ammonia WNL, and albumin of 2.6. CXR showed no acute cardiopulmonary process seen. CT of head showed no acute intracranial pathology. Pt will be admitted to the hospital for treatment of metabolic encephalopathy in the setting of symptomatic ascites due to alcoholic cirrhosis. <LESLEE Wolfe - Last Filed: 04/03/22 18:02> Review of Systems Review of Systems: Difficult to obtain d/t pt's mentation. Voices no acute complaints. <LESLEE Wolfe - Last Filed: 04/03/22 18:02> [facility] Medical History: Medical History SAUL (acute kidney injury) Alcohol abuse Ascites Diabetes Elevated liver enzymes Hypertension Liver cirrhosis Pressure ulcer Withdrawal seizures <LESLEE Wolfe - Last Filed: 04/03/22 18:02> Family History: Family History Other No family history of coronary artery disease <LESLEE Wolfe - Last Filed: 04/03/22 18:02> Surgical History: Surgical History No pertinent past surgical history <LESLEE Wolfe - Last Filed: 04/03/22 18:02> Social History: Social History Household Members: Significant Other Housing: House Do you presently have visiting nurse or other home services: Yes Alcohol intake: former Patient Tobacco Use Status: Never used Tobacco Tobacco use type: Smokeless Tobacco Second Hand Smoke Exposure: No Advance Directives Date on File: 03/18/22 service: Yes Current occupational status: unemployed <LESLEE Wolfe - Last Filed: 04/03/22 18:02> Meds Allergies/Adverse reactions: Allergies Allergy/AdvReac Type Severity Reaction Status Date / Time acetaminophen [From PERCOCET] Allergy Severe AGITATION Verified 03/21/22 19:47 oxycodone [From PERCOCET] Allergy Severe AGITATION Verified 03/21/22 19:47 bee pollen [Bee Stings] Allergy Mild SWELLING Verified 03/21/22 19:47 lorazepam AdvReac Unknown AGITATION Verified 03/21/22 19:47 <LESLEE Wolfe - Last Filed: 04/03/22 18:02> Active Medications: Current Medications Pharmacy Consult (Consult Rx Perform Med Rec) 1 each MISCELLANE ONCE PRN PRN Reason: Consult order <LESLEE Wolfe - Last Filed: 04/03/22 18:02> Home medications: Home Medications Medication Instructions Recorded Confirmed Last Taken Type lactulose 10 gram/15 mL oral 30 ml PO BID 03/17/22 04/03/22 04/03/22 History solution omeprazole 20 mg capsule,delayed 1 cap PO DAILY 03/17/22 04/03/22 04/03/22 History release insulin lispro 100 unit/mL 0 sliding scale dose subcut TIDAC 04/03/22 04/03/22 04/03/22 History subcutaneous pen magnesium oxide 400 mg PO BID 04/03/22 04/03/22 04/03/22 History <LESLEE Wolfe - Last Filed: 04/03/22 18:02> Physical Exam Vital Signs and Narrative: Vital Signs: Last Vital Signs Temp 98.5 F 04/03/22 11:45 Pulse 99 04/03/22 14:41 Resp 13 04/03/22 14:41 BP 95/60 04/03/22 14:41 Pulse Ox 100 04/03/22 14:41 O2 Del Method 04/03/22 14:41 BMI result Body Mass Index 14.5 <LESLEE Wolfe - Last Filed: 04/03/22 18:02> Constitutional: Disheveled, ill-appearing. Poor hygiene. Mental Status: Oriented to person andplace but not time. Eyes: Pupils are equal, round, and reactive to light. Ear, Nose, and Throat: Mucous membranes dry. Poor dentition Ears and nose without deformities. Trachea midline. Respiratory: Clear to auscultation bilaterally. No wheezing, rales, or rhonchi. Cardiovascular: S1, S2 regular. No murmurs, rubs, or gallops. Gastrointestinal: Abdomen significantly distended, nontender Neurologic: Cranial nerves II-XI are grossly intact. No focal neurological deficits. Moves all extremities spontaneously. Skin: Diffuse rashes and excoriations. Large bullous lesion on heel and midfoot of right foot. See picutres below. Musculoskeletal: No cyanosis or clubbing. Extremities: No edema. Psychiatric: Cooperative. <LESLEE Wolfe - Last Filed: 04/03/22 18:02> Results Labs CBC and Chem 7: 04/03/22 12:27 04/03/22 12:27 <LESLEE Wolfe - Last Filed: 04/03/22 18:02> Labs: Laboratory Results - last 24 hr 04/03/22 04/03/22 04/03/22 12:27 12:27 12:27 MCV 100.9 H MCH 35.3 H MCHC 35.0 RDW 16.3 H Plt Count 133 L D MPV 9.3 L Immature Gran % (Auto) 0.6 H Neut % (Auto) 79.2 H Lymph % (Auto) 8.7 L [place] % (Auto) 9.6 Eos % (Auto) 1.5 Baso % (Auto) 0.4 Lymph # (Auto) 1.0 L [place] # (Auto) 1.1 Eos # (Auto) 0.2 Baso # (Auto) 0.0 Abs Immat Gran (auto) 0.07 H Absolute Neuts (auto) 9.0 H Absolute Nucleated RBC 0.000 Nucleated RBC % (auto) 0.0 Anion Gap 15 Estim Creat Clear Calc 35.5 Estimated GFR 54 Random Glucose 176 H Lactic Acid 4.9 H* Calcium 9.7 D Total Bilirubin 4.2 H Direct Bilirubin 1.4 H AST 47 H ALT 27 Alkaline Phosphatase 150 H Ammonia Total Creatine Kinase 151 Troponin I High Sens Total Protein 7.0 Albumin 2.6 L Lipase 30 Urine Color Urine Appearance Urine pH Ur Specific [place] Urine Protein Urine Glucose (UA) Urine Ketones Urine Blood Urine Nitrite Ur Leukocyte Esterase Urine RBC Urine WBC Ur Squamous Epith Cells Urine Bacteria Hyaline Casts Influenza Type A (PCR) Influenza Type B (PCR) RSV RNA Qual (PCR) SARS-CoV-2 RNA (RT-PCR) 04/03/22 04/03/22 04/03/22 12:27 12:27 12:27 MCV MCH MCHC RDW Plt Count MPV Immature Gran % (Auto) Neut % (Auto) Lymph % (Auto) [place] % (Auto) Eos % (Auto) Baso % (Auto) Lymph # (Auto) [place] # (Auto) Eos # (Auto) Baso # (Auto) Abs Immat Gran (auto) Absolute Neuts (auto) Absolute Nucleated RBC Nucleated RBC % (auto) Anion Gap Estim Creat Clear Calc Estimated GFR Random Glucose Lactic Acid Calcium Total Bilirubin Direct Bilirubin AST ALT Alkaline Phosphatase Ammonia 50 Total Creatine Kinase Troponin I High Sens 5.4 Total Protein Albumin Lipase Urine Color Urine Appearance Urine pH Ur Specific [place] Urine Protein Urine Glucose (UA) Urine Ketones Urine Blood Urine Nitrite Ur Leukocyte Esterase Urine RBC Urine WBC Ur Squamous Epith Cells Urine Bacteria Hyaline Casts Influenza Type A (PCR) NEGATIVE Influenza Type B (PCR) NEGATIVE RSV RNA Qual (PCR) NEGATIVE SARS-CoV-2 RNA (RT-PCR) NEGATIVE 04/03/22 15:15 MCV MCH MCHC RDW Plt Count MPV Immature Gran % (Auto) Neut % (Auto) Lymph % (Auto) [place] % (Auto) Eos % (Auto) Baso % (Auto) Lymph # (Auto) [place] # (Auto) Eos # (Auto) Baso # (Auto) Abs Immat Gran (auto) Absolute Neuts (auto) Absolute Nucleated RBC Nucleated RBC % (auto) Anion Gap Estim Creat Clear Calc Estimated GFR Random Glucose Lactic Acid Calcium Total Bilirubin Direct Bilirubin AST ALT Alkaline Phosphatase Ammonia Total Creatine Kinase Troponin I High Sens Total Protein Albumin Lipase Urine Color Dark Yellow Urine Appearance Clear Urine pH 5.5 Ur Specific [place] 1.025 Urine Protein Trace Urine Glucose (UA) Negative Urine Ketones Trace Urine Blood Negative Urine Nitrite Negative Ur Leukocyte Esterase Trace H Urine RBC 3-5 H Urine WBC 0-5 Ur Squamous Epith Cells 0-2 Urine Bacteria None Seen Hyaline Casts 3-5 Influenza Type A (PCR) Influenza Type B (PCR) RSV RNA Qual (PCR) SARS-CoV-2 RNA (RT-PCR) <LESLEE Wolfe - Last Filed: 04/03/22 18:02> Imaging Radiologist's Impressions: Impressions Chest X-Ray 04/03/22 12:49 IMPRESSION: No acute cardiopulmonary process. Head CT 04/03/22 13:11 IMPRESSION: No acute intracranial pathology. <LESLEE Wolfe - Last Filed: 04/03/22 18:02> Assessment and Plan (1) Altered mental status: Status: Acute <LESLEE Wolfe - Last Filed: 04/03/22 18:02> (2) Acute hyperkalemia: Status: Acute <LESLEE Wolfe - Last Filed: 04/03/22 18:02> (3) Acute hyponatremia: Status: Acute <LESLEE Wolfe - Last Filed: 04/03/22 18:02> (4) Alcoholic cirrhosis: Status: Acute <LESLEE Wolfe - Last Filed: 04/03/22 18:02> Pt is a 56-year-old male with a PMH significant for?ETOH cirrhosis (reports over 1 year sober), ascites, alcohol use disorder, and [id number] DM 2 who presents to the ED after VNA found patient had a covered in stool and urine. Patient be admitted to the hospital for treatment of hepatic encephalopathy in setting of symptomatic ascites due to alcoholic cirrhosis. Hepatic encephalopathy in the setting of symptomatic ascites due to alcoholic cirrhosis Lactulose 30 mg with a goal of 2-3 bowel movements per day Rifaximin 500 b.i.d. Paracentesis Albumin 25% q6 Fluid restriction GI eval SAUL Likely secondary to dehydration, ascites Albumin 25% q6 Hold diuretics Monitor labs Nephrology consult Skin lesions and excoriations General surgery consult Hyponatremia Fluid restriction Monitor Hyperkalemia Hold spironolactone Monitor Protein calorie malnutrition Nutrition consult Lactic acidosis Chronic, at baseline Secondary to liver disease, not sepsis Non insulin-dependent DM2 Hold metformin SSI Full Code Attending:?Dr. Arellano DVT Prophylaxis: Lovenox Pt will require a hospitalization of at least two nights for treatment of hepatic encephalopathy in the setting of symptomatic ascites due to alcohol cirrhosis. . <LESLEE Wolfe - Last Filed: 04/03/22 18:02> Pt is a 56-year-old male with a PMH significant for?ETOH cirrhosis (reports over 1 year sober), ascites, alcohol use disorder, and rbm-wnbddac-rgppeulza DM 2 who presents to the ED after VNA found patient had a covered in stool and urine. Patient be admitted to the hospital for treatment of hepatic encephalopathy in setting of symptomatic ascites due to alcoholic cirrhosis. Hepatic encephalopathy in the setting of symptomatic ascites due to alcoholic cirrhosis Lactulose 30 mg with a goal of 2-3 bowel movements per day Rifaximin 500 b.i.d. Paracentesis Albumin 25% q6 Fluid restriction GI eval SAUL Likely secondary to dehydration, ascites Albumin 25% q6 Hold diuretics Monitor labs Nephrology consult Skin lesions and excoriations General surgery consult Hyponatremia Fluid restriction Monitor Hyperkalemia Hold spironolactone Monitor moderate Protein calorie malnutrition /generalised deconditioned Nutrition consult PT eval Lactic acidosis Chronic, at baseline Secondary to liver disease, not sepsis Non insulin-dependent DM2 Hold metformin SSI Full Code Attending:?Dr. Arellano DVT Prophylaxis: Lovenox Pt will require a hospitalization of at least two nights for treatment of hepatic encephalopathy in the setting of symptomatic ascites due to alcohol cirrhosis. . <Jono Arellano MD - Last Filed: 04/04/22 08:07> Time Spent With Patient Time: Total time managing care of this patient today ____ minutes. <LESLEE Wolfe - Last Filed: 04/03/22 18:02> Quality Stroke Does the patient have a stroke diagnosis?: No <LESLEE Wolfe - Last Filed: 04/03/22 18:02> VTE Prior VTE?: No <LESLEE Wolfe - Last Filed: 04/03/22 18:02> VTE Risk Level:: Medical - moderate - high <LESLEE Wolfe - Last Filed: 04/03/22 18:02> VTE Device Contraindication: Treatment Not Indicated <LESLEE Wolfe - Last Filed: 04/03/22 18:02> VTE Drug Contraindication: N/A - Med Ordered <LESLEE Wolfe - Last Filed: 04/03/22 18:02>
--- NOTE | 2022-04-03 17:57 | P.EN_ITS ---
Event Note Date of Service: 04/03/22 Event Note: This patient is seen and examined with APC. 56 y/[facility] etoh cirrhosis (reports 1 year soberiety), DM, presented after VNA found patient covered in stool. patient reports normally able to amublate with walker, reports recent progressive weakness, decreased appetite and po intake, increased abdominal distension, denies fever, chills, sob. in ED found to have significantly distended abdomen, diffuse skin excoriations,? labs significant for SAUL, hyopnatremia, hyperkalemia. Patient denies any chest pain or shortness of breath, looks somewhat confused could able to tell his name as in the hospital and able to say President once says given the options Lab imaging UA negative, Chest x-ray: No acute pulmonary process. CT head is also negative. EKG seems similar to before Physical exam : Please see H&P. assessment and plan coordinated in APCs note, Agree with the plan in addition: Patient came with hyponatremia and hyperkalemia:, toxic metabolic encephalopathy secondary to liver disease. Lactic acidosis related to liver disease/metformin. Mild leukocytosis possibly reactive but no fever UA chest x-ray negative. No abdominal pain but has ascites. Hyponatremia possibly related to liver disease seems chronic Will try fluid restrictions Monitor electrolytes and renal function closely. SAUL : Albumin, hold diuretics Nephro evaluation for hyponatremia and SAUL. And hyperkalemia(given Lokelma) Patient has possible bolus pressure area in heel right side, multiple scale in at excoriations , poor hygiene: Frequent turning, wound care evaluation Toxic metabolic encephalopathy secondary to liver disease: Started on lactulose and rifaximin Has ascites-no new symptoms GI evaluation Time Spent With Patient Time: Total time managing care of this patient today ____ minutes.
[2022-04-03 18:05] LABS: ~Lactic Acid-LAB USE ONLY 5.1 mmol/L (0.5-2.0)
[2022-04-03 18:15] LABS: Cancel Lactic Acid Canceled
[2022-04-03] MEDS: Enoxaparin Sodium 40 MG/0.4 ML SYRINGE SUBCUT (18:34)
[2022-04-03] MEDS: Sodium Zirconium Cyclosilicate 5 GM POWD.PACK PO (18:34)
[2022-04-03] MEDS: Albumin Human 25 % 100 ML IV (20:26)
--- NOTE | 2022-04-03 20:30 | PC.NURSE ---
Re-Assessment: Pt is on the continuous security monitor, and it sows sinus tach. PT BP is tsbale, pt 's albumin 100ml/hr is running, pharmacy has been called d/t the order is 200ml/hr. Pt has rigid abd with lacerations wounds, pt's Right foot has +4 pitting edema with necrotic heel. Pt is sleepig at the time of the assessment.
[2022-04-03 20:36] VITALS: BP 99/67; PULSE 107; RESP 20; TEMP 36.4; O2SAT 100
--- NOTE | 2022-04-03 20:53 | PC.NURSE ---
Albumin protocol: Pt has 100ml/hr of albumin with each bag of 50ml each, the order is every 6 hours for a total of 4th rounds.
[2022-04-03 21:31] LABS: Glucose, Whole Blood 149 mg/dL (60-115)
[2022-04-03 21:36] VITALS: BP 113/59; PULSE 113; RESP 18; TEMP 36.6; O2SAT 100
--- NOTE | 2022-04-03 21:45 | PC.NURSE ---
Pt arrived to the unit via stretcher. Pt is lethargic, wakes to voice answer questions appropriately, disoriented to time. Respirations are even and non-labored, abdomen is distended, BS present, denies tenderness. Pt is resting, has no concerns at this time and aware of plan of care.
[2022-04-03] MEDS: Lactulose 20 GM/30 ML SOLUTION 30 GM PO (22:11)
[2022-04-03] MEDS: rifAXIMin 550 MG TABLET PO (22:12)
[2022-04-03] MEDS: 0.9 % Sodium Chloride Flush 3 ML SYRINGE IVFLUSH (22:13)
[2022-04-03] MEDS: Magnesium Oxide 400 MG TABLET PO (22:14)
[2022-04-03 22:18] VITALS: BMI 29.8
[2022-04-04] MEDS: Albumin Human 25 % 100 ML IV ×4 (01:59→20:43)
[2022-04-04 04:00] VITALS: BP 115/62; PULSE 80; RESP 18; TEMP 36.8; O2SAT 98
[2022-04-04] MEDS: Omeprazole 20 MG CAPSULE.DR PO (05:09)
[2022-04-04 06:53] LABS: Hematocrit 27.2 % (42.0-52.0); Hemoglobin 9.6 g/dl (14.0-18.0); Mean Corpuscular HGB Conc 35.3 g/dl (31.0-36.0); Mean Corpuscular Hemoglobin 35.4 pg (27.0-33.0); Mean Corpuscular Volume 100.4 fL (80.0-98.0); Mean Platelet Volume 9.5 fL (9.4-12.4); Red Blood Count 2.71 X10*6/uL (4.60-5.80); Red Cell Distribution Width 16.2 % (11.0-16.0); White Blood Count 8.7 X10*3/uL (4.8-10.8)
[2022-04-04 07:04] VITALS: BP 110/56; PULSE 105; RESP 18; TEMP 36.1; O2SAT 100
[2022-04-04 07:07] LABS: Platelet Count 95 X10*3/uL (160-400)
[2022-04-04 07:12] LABS: Anion Gap 14 (12-20); Blood Urea Nitrogen 31 mg/dL (9-16); Calcium 9.7 mg/dL (8.4-10.2); Carbon Dioxide 21 mmol/L (22-29); Chloride 97 mmol/L (96-108); Creatinine Clr Calc Pharmacy 64.2; Estimated Glomerular Filt Rate 56; Glucose Random 139 mg/dL (60-115); Potassium 4.7 mmol/L (3.3-5.1); Sodium 127 mmol/L (135-145)
[2022-04-04 07:13] LABS: Glucose, Whole Blood 138 mg/dL (60-115)
--- NOTE | 2022-04-04 07:27 | PHA.PROG ---
Admission Date/Time: April 03, 2022 18:03 Indication: BACTEREMIA Weight in k.915 kg Adjusted body weight in K.8 [place] body weight in Kg: Obesity Dosing Indication % IBW: 31.5% OVERWEIGHT Serum Creatinine - Last 168 Hours 04/03/22 04/04/22 12:27 05:44 Creatinine 1.36 1.32 Estimated CrCl and GFR - Last 168 Hours 04/03/22 04/04/22 12:27 05:44 Estim Creat Clear Calc 35.5 64.2 Estimated GFR 54 56 Vancomycin Loading Dose: 2000 MG LOAD Current Vancomycin Dosing Regimen:1250 MG Q 24 HOURS Vancomycin Monitoring using AUC goal of 400 - 600 range with trough as surrogate marker: Date and Time for next Vancomycin Level to be drawn: WILL CHECK A LEVEL AFTER 2 DOSES Pharmacist Comments on Vancomycin Plan: Vancomycin dosing will take advantage of [employer] as a clinical decision support tool that uses Bayesian modeling to calculate individual patient's pharmacokinetic parameters and forecast the patient's drug concentration time course with the target goal AUC 24 range of 400 - 600 mg/L/hr.
[2022-04-04] MEDS: cefTRIAXone sodium 1 GM in 0.9 % Sodium Chloride 50 ML IV (09:02)
[2022-04-04] MEDS: Lactulose 20 GM/30 ML SOLUTION 30 GM PO ×3 (09:11→20:44)
[2022-04-04] MEDS: Magnesium Oxide 400 MG TABLET PO ×2 (09:13→20:45)
[2022-04-04] MEDS: 0.9 % Sodium Chloride Flush 3 ML SYRINGE IVFLUSH ×3 (09:13→20:44)
[2022-04-04] MEDS: Thiamine HCL 100 MG TABLET PO (09:13)
[2022-04-04] MEDS: rifAXIMin 550 MG TABLET PO ×2 (09:13→20:43)
[2022-04-04] MEDS: Sodium Chloride Tab 1 GM TABLET PO (09:13)
[2022-04-04] MEDS: Folic Acid 1 MG TABLET PO (09:13)
--- NOTE | 2022-04-04 09:48 | P.CONNP_ITS ---
History of Present Illness Reason for Consult Consult date: 04/04/22 Chief Complaint Chief complaint: AMS History of Present Illness Narrative: 56-year-old male with history of ?ETOH cirrhosis (sent to the hospital after he was found covered in stool and urine and is currently with worsening kidney function and low serum sodium. Patient was found to be more lethargic than his usual baseline. He complains of distended abdomen and increasing abdominal girth. He denies fever, chills, nausea, vomiting or diarrhea. There is no report of chest pain or shortness of breath. Review of his vital signs showed systolic blood pressure down to the 90s. Review of Systems Review of Systems 10 points ROS negative except for pertinent in HPI [facility] Past Medical History Medical History SAUL (acute kidney injury) Alcohol abuse Ascites Diabetes Elevated liver enzymes Hypertension Liver cirrhosis Pressure ulcer Withdrawal seizures Family History Family History Other No family history of coronary artery disease Surgical History Surgical History No pertinent past surgical history Social History Social History Household Members: Significant Other Housing: House Do you presently have visiting nurse or other home services: Yes Alcohol intake: former Patient Tobacco Use Status: Never used Tobacco Tobacco use type: Smokeless Tobacco Second Hand Smoke Exposure: No Advance Directives Date on File: 03/18/22 service: Yes Current occupational status: unemployed Meds Allergies Allergy/AdvReac Type Severity Reaction Status Date / Time acetaminophen [From PERCOCET] Allergy Severe AGITATION Verified 03/21/22 19:47 oxycodone [From PERCOCET] Allergy Severe AGITATION Verified 03/21/22 19:47 bee pollen [Bee Stings] Allergy Mild SWELLING Verified 03/21/22 19:47 lorazepam AdvReac Unknown AGITATION Verified 03/21/22 19:47 Active Medications: Current Medications Dextrose (Dextrose 50 % 25 Gm/50 Ml Syringe) 25 gm IVPUSH Q15M PRN; Protocol PRN Reason: per Hypoglycemia Standing Ord. Enoxaparin Sodium (Enoxaparin Sodium 40 Mg/0.4 Ml Syringe) 40 mg SUBCUT Q24H [facility] Last Admin: 04/03/22 18:34 Dose: 40 mg Folic Acid (Folic Acid 1 Mg Tablet) 1 mg PO DAILY [facility] Last Admin: 04/04/22 09:13 Dose: 1 mg Glucose (Glucose Gel 15 Gm Gel..Gram.) 15 gm PO Q15M PRN; Protocol PRN Reason: per Hypoglycemia Standing Ord. Vancomycin HCl 1,250 mg/ (Sodium Chloride) 250 mls @ 166.667 mls/hr IV Q24H [facility] Ceftriaxone Sodium 1 gm/ (Sodium Chloride) 50 mls @ 100 mls/hr IV Q24H [facility] Last Admin: 04/04/22 09:02 Dose: 100 mls/hr Vancomycin HCl (Vancomycin/Ns) 2,000 mg in 520 mls @ 260 mls/hr IV ONCE ONE Stop: 04/04/22 09:59 Last Admin: 04/04/22 09:48 Dose: 260 mls/hr Insulin Human Lispro (Insulin Lispro 100 Unit/Ml 3 Ml Vial) 0 unit SUBCUT QIDACHS [facility]; Protocol Last Admin: 04/04/22 09:12 Dose: Not Given Lactulose (Lactulose 20 Gm/30 Ml Solution) 30 gm PO TID [facility] Last Admin: 04/04/22 09:11 Dose: 30 gm Magnesium Oxide (Magnesium Oxide 400 Mg Tablet) 400 mg PO BID [facility] Last Admin: 04/04/22 09:13 Dose: 400 mg Omeprazole (Omeprazole 20 Mg Capsule.Dr) 20 mg PO DAILY@0630 [facility] Last Admin: 04/04/22 05:09 Dose: 20 mg Ondansetron HCl (Ondansetron Hcl 4 Mg/2 Ml Vial) 4 mg IVPUSH Q8H PRN PRN Reason: Nausea and Vomiting Pharmacy Consult (Consult Rx Perform Med Rec) 1 each MISCELLANE ONCE PRN PRN Reason: Consult order Pharmacy Consult (Consult Rx Vancomycin Dosing) 1 each MISCELLANE DAILY PRN PRN Reason: Consult order Rifaximin (Rifaximin 550 Mg Tablet) 550 mg PO BID [facility] Last Admin: 04/04/22 09:13 Dose: 550 mg Sodium Chloride (0.9 % Sodium Chloride Flush 3 Ml Syringe) 3 ml IVFLUSH QSHIFT [facility] Last Admin: 04/04/22 09:13 Dose: 3 ml Sodium Chloride (Sodium Chloride Tab 1 Gm Tablet) 1 gm PO DAILY [facility] Last Admin: 04/04/22 09:13 Dose: 1 gm Thiamine HCl (Thiamine Hcl 100 Mg Tablet) 100 mg PO DAILY [facility] Last Admin: 04/04/22 09:13 Dose: 100 mg Home Medications Medication Instructions Recorded Confirmed Last Taken Type lactulose 10 gram/15 mL oral 30 ml PO BID 03/17/22 04/03/22 04/03/22 History solution omeprazole 20 mg capsule,delayed 1 cap PO DAILY 03/17/22 04/03/22 04/03/22 History release insulin lispro 100 unit/mL 0 sliding scale dose subcut TIDAC 04/03/22 04/03/22 04/03/22 History subcutaneous pen magnesium oxide 400 mg PO BID 04/03/22 04/03/22 04/03/22 History Physical Exam Vital Signs: Last Vital Signs Temp 97 F 04/04/22 07:04 Pulse 105 H 04/04/22 07:04 Resp 18 04/04/22 07:04 BP 110/56 L 04/04/22 07:04 Pulse Ox 100 04/04/22 07:04 O2 Del Method 04/04/22 07:04 BMI result Body Mass Index 29.8 Const General: no acute distress HEENT Head: Yes normocephalic and Yes atraumatic Neck Neck: Yes supple Resp Auscultation: diminished lung sounds Cardio Heart sounds: S1 normal heart sound present and S2 normal heart sound present GI Palpation (GI): nontender and Ascites present Extrem General: Yes edema Results Lab Results 04/04/22 05:44 04/04/22 05:44 Lab results: Chemistry 04/03/22 04/04/22 12:27 05:44 Sodium 127 L 127 L Potassium 5.4 H 4.7 Carbon Dioxide 19 L 21 L BUN 32 H 31 H Creatinine 1.36 1.32 Calcium 9.7 D 9.7 Hematology 04/03/22 04/04/22 12:27 05:44 WBC 11.4 H 8.7 Hgb 11.7 L 9.6 L Plt Count 133 L D 95 L D Urinalysis 04/03/22 15:15 Urine Color Dark Yellow Urine Appearance Clear Urine pH 5.5 Ur Specific [place] 1.025 Urine Protein Trace Urine Glucose (UA) Negative Urine Ketones Trace Urine Blood Negative Urine Nitrite Negative Ur Leukocyte Esterase Trace H Urine RBC 3-5 H Urine WBC 0-5 Ur Squamous Epith Cells 0-2 Hyaline Casts 3-5 Assessment and Plan (1) SAUL (acute kidney injury): Status: Acute (2) Hyponatremia: Status: Acute (3) Alcoholic cirrhosis: Status: Acute Plan SAUL due to pre renal state in the setting of ETOH liver cirrhosis r/o hepatorenal syndrome type I but less likely hypervolemic hyponatremia in the setting of hepatic physiology underlying type 2 HRS REC Nicol fluid restriction albumin infusion no urea midodrine for low BP no IVF follow kidney function and electrolytes Time Spent With Patient Time: Total time managing care of this patient today ____ minutes. Procedures Date of Service Date of Service: 04/04/22
[2022-04-04] MEDS: Lactulose 320 GM/480 ML SOLUTION 200 GM PR (10:41)
--- NOTE | 2022-04-04 11:07 | P.CNGI_ITS ---
History of Present Illness Data of Consult Service Date: 04/04/22 Requesting physician: Jono Arellano Primary Care Provider: Maren Carvajal MD HPI Reason for consult: ascites, decompensated cirrhosis 56 YM with alcohol related decompensated cirrhosis, DM, non compliance, peripheral neuropathy and poor mobility who I am seeing for assessment for ascites and liver disease. When I went to see patient for assessment he was somnolent, poorly responsive but awake so information taken from chart and nursing staff Patient was admitted after being found at home by VNA covered in stool and urine for unknown amount of time. He was oriented to person and place but not time when seen on admission. Patient had no complaints per chart and had? denied fever, chills, nausea, vomiting.? Blood cultures have revealed GNR and he is receiving ceftriaxone. He does have right foot ulcer. Labs: leukocytosis of 11.4, H&H 11.7/33.4 (near baseline), hyponatremia of 127, hyperkalemia of 5.4, creatinine of 1.36 (baseline 0.8) elevated BUN of 32, lactic acid of 4.9, total bilirubin of 4.2, direct bilirubin 1.4, ammonia WNL, and albumin of 2.6. Paracentesis-- neg for SBP by cell count Imaging: CXR showed no acute cardiopulmonary process, CT of head showed no acute intracranial pathology. Review of Systems Review of Systems: Yes Unobtainable due to mental condition and Unobtainable due to mental status PMFSH Past Medical History Medical History SAUL (acute kidney injury) Alcohol abuse Ascites Diabetes Elevated liver enzymes Hypertension Liver cirrhosis Pressure ulcer Withdrawal seizures Family History Family History Other No family history of coronary artery disease Surgical History Surgical History No pertinent past surgical history Social History Social History Household Members: Significant Other Housing: House Do you presently have visiting nurse or other home services: Yes Alcohol intake: former Patient Tobacco Use Status: Never used Tobacco Tobacco use type: Smokeless Tobacco Second Hand Smoke Exposure: No Advance Directives Date on File: 03/18/22 service: Yes Current occupational status: unemployed Meds Allergies Allergy/AdvReac Type Severity Reaction Status Date / Time acetaminophen [From PERCOCET] Allergy Severe AGITATION Verified 03/21/22 19:47 oxycodone [From PERCOCET] Allergy Severe AGITATION Verified 03/21/22 19:47 bee pollen [Bee Stings] Allergy Mild SWELLING Verified 03/21/22 19:47 lorazepam AdvReac Unknown AGITATION Verified 03/21/22 19:47 Active Medications: Current Medications Dextrose (Dextrose 50 % 25 Gm/50 Ml Syringe) 25 gm IVPUSH Q15M PRN; Protocol PRN Reason: per Hypoglycemia Standing Ord. Enoxaparin Sodium (Enoxaparin Sodium 40 Mg/0.4 Ml Syringe) 40 mg SUBCUT Q24H [facility] Last Admin: 04/03/22 18:34 Dose: 40 mg Folic Acid (Folic Acid 1 Mg Tablet) 1 mg PO DAILY [facility] Last Admin: 04/04/22 09:13 Dose: 1 mg Glucose (Glucose Gel 15 Gm Gel..Gram.) 15 gm PO Q15M PRN; Protocol PRN Reason: per Hypoglycemia Standing Ord. Vancomycin HCl 1,250 mg/ (Sodium Chloride) 250 mls @ 166.667 mls/hr IV Q24H [facility] Ceftriaxone Sodium 1 gm/ (Sodium Chloride) 50 mls @ 100 mls/hr IV Q24H [facility] Last Infusion: 04/04/22 09:48 Dose: Infused Insulin Human Lispro (Insulin Lispro 100 Unit/Ml 3 Ml Vial) 0 unit SUBCUT QIDACHS [facility]; Protocol Last Admin: 04/04/22 09:12 Dose: Not Given Lactulose (Lactulose 20 Gm/30 Ml Solution) 30 gm PO TID [facility] Last Admin: 04/04/22 09:11 Dose: 30 gm Magnesium Oxide (Magnesium Oxide 400 Mg Tablet) 400 mg PO BID [facility] Last Admin: 04/04/22 09:13 Dose: 400 mg Omeprazole (Omeprazole 20 Mg Capsule.Dr) 20 mg PO DAILY@0630 [facility] Last Admin: 04/04/22 05:09 Dose: 20 mg Ondansetron HCl (Ondansetron Hcl 4 Mg/2 Ml Vial) 4 mg IVPUSH Q8H PRN PRN Reason: Nausea and Vomiting Pharmacy Consult (Consult Rx Perform Med Rec) 1 each MISCELLANE ONCE PRN PRN Reason: Consult order Pharmacy Consult (Consult Rx Vancomycin Dosing) 1 each MISCELLANE DAILY PRN PRN Reason: Consult order Rifaximin (Rifaximin 550 Mg Tablet) 550 mg PO BID [facility] Last Admin: 04/04/22 09:13 Dose: 550 mg Sodium Chloride (0.9 % Sodium Chloride Flush 3 Ml Syringe) 3 ml IVFLUSH QSHIFT [facility] Last Admin: 04/04/22 09:13 Dose: 3 ml Sodium Chloride (Sodium Chloride Tab 1 Gm Tablet) 1 gm PO DAILY [facility] Last Admin: 04/04/22 09:13 Dose: 1 gm Thiamine HCl (Thiamine Hcl 100 Mg Tablet) 100 mg PO DAILY [facility] Last Admin: 04/04/22 09:13 Dose: 100 mg Home Medications Medication Instructions Recorded Confirmed Last Taken Type lactulose 10 gram/15 mL oral 30 ml PO BID 03/17/22 04/03/22 04/03/22 History solution omeprazole 20 mg capsule,delayed 1 cap PO DAILY 03/17/22 04/03/22 04/03/22 History release insulin lispro 100 unit/mL 0 sliding scale dose subcut TIDAC 04/03/22 04/03/22 04/03/22 History subcutaneous pen magnesium oxide 400 mg PO BID 04/03/22 04/03/22 04/03/22 History Physical Exam Vital Signs: Vital Signs: Last Vital Signs Temp 97 F 04/04/22 07:04 Pulse 105 H 04/04/22 07:04 Resp 18 04/04/22 07:04 BP 110/56 L 04/04/22 07:04 Pulse Ox 100 04/04/22 07:04 O2 Del Method 04/04/22 07:04 BMI result Body Mass Index 29.8 EXAM: (seen before paracentesis) GENERAL: The patient is weak, frail appearing, jaundiced and poorly responsive, with slow mentation, appears dehydrated VITAL SIGNS:see workflow HEENT: icteric sclerae, PERRLA, EOMI. Oropharynx clear. Moist mucous membranes. Conjunctivae appear pale. No thyroid mass. CHEST: Chest wall is nontender. HEART: Regular rate and rhythm without murmurs. LUNGS: Clear to auscultation bilaterally. ABDOMEN: tense, with dullness due to ascites, positive bowel sounds, nontender, no organomegaly.no flank tenderness SKIN: spider naevi NEUROLOGIC: awake but somnolent at times, moving arms. Extrem: General: Yes normal to inspection Psych: Appearance: disheveled Results Labs 04/04/22 05:44 04/04/22 05:44 Labs: Short CBC 04/03/22 04/04/22 Range/Units 12:27 05:44 WBC 11.4 H 8.7 (4.8-10.8) X10*3/uL Hgb 11.7 L 9.6 L (14.0-18.0) g/dl Hct 33.4 L 27.2 L (42.0-52.0) % Plt Count 133 L D 95 L D (160-400) X10*3/uL BMP 04/03/22 04/04/22 12:27 05:44 Sodium 127 L 127 L Potassium 5.4 H 4.7 Chloride 98 97 Carbon Dioxide 19 L 21 L BUN 32 H 31 H Creatinine 1.36 1.32 Calcium 9.7 D 9.7 Cardiac Enzymes 04/03/22 Range/Units 12:27 Total Creatine Kinase 151 (38-174) U/L Liver Function 04/03/22 Range/Units 12:27 Total Bilirubin 4.2 H (0.0-1.0) mg/dL Direct Bilirubin 1.4 H (0.0-0.5) mg/dL AST 47 H (5-37) U/L ALT 27 (0-40) U/L Alkaline Phosphatase 150 H (39-117) U/L Albumin 2.6 L (3.5-5.0) g/dL Urine 04/03/22 Range/Units 15:15 Urine Color Dark Yellow Urine Appearance Clear Urine pH 5.5 (5.0-9.0) Ur Specific [place] 1.025 (1.005-1.025) Urine Protein Trace (Neg-Trace) mg/dL Urine Glucose (UA) Negative (Negative) mg/dL Microbiology Microbiology Results: Microbiology 04/03/22 12:27 Blood - Venous Blood Culture - Preliminary Prelim: GNR Gram Stain only Prelim: GPC Gram Stain only Assessment and Plan (1) Alcoholic cirrhosis: Status: Acute (2) Altered mental status: Status: Acute (3) Delirium due to general medical condition: Status: Acute (4) Gram-negative bacteremia: Status: Acute Plan Assessment; 1/ Recurrent ascites from non compliance and progressive liver disease worsened by Gram neg bacteremia source unclear but maybe from contaminated wound, also has gallstones. 2/ Encephalopathy related to liver disease and bacteremia, malnutrition PLAN: 1/ hold diuretics due to low na, seems intravascularly dry, can give albumin if needed 2/ cont with lactulose aiming for 3 soft stools daily as well as rifaximin, replace Zn--avoid xs diarrhea from treatment 3/ high protein diet 1.1g/kg per day--can give via diet and protein supplements 4/ consider expanding ABX to zosyn or broader regimen until full c/s available, if cholecystitis suspected then HIDA and cholecystostomy tube 5/ consider discussion on goals of care, his prognosis is guarded for near to immediate term, Time Spent With Patient Time: Total time managing care of this patient today ____ minutes. Procedures Date of Service Date of Service: 04/04/22
[2022-04-04 11:15] LABS: Glucose, Whole Blood 141 mg/dL (60-115)
--- NOTE | 2022-04-04 14:04 | PC.NURSE ---
Addendum entered by Eryn Vyas RN 04/04/22 15:19: BEDSIDE PARACENTESIS REMOVED 7.8 L OF YELLOW FLUID, SAMPLES COLLECTED AND SENT TO LAB HOSPITALIST AND PRIMARY NURSE NOTIFIED Original Note: PATIENT TRANSFERRED TO ICU FOR BEDSIDE PROCEDURE, PLACED ON MONITOR AND AWAITING MD IV TO RIGHT AC LEAKING, REMOVED. IV TO LEFT AC PATENT IV ALBUMIN ADMINISTERED
--- NOTE | 2022-04-04 14:17 | HO.PM.IMPN ---
Subjective Subjective Date of Service: 04/05/22 Interval History: etoh cirrhosis, toxic metabolic encephalopthy, mild leukocytosis, bacteremia Review of Systems Mental status seems to be somewhat improving, Denies any chest pain or shortness of breath, has ascites discomfortable Had 1 BM overnight No fever or chills or cough or phlegm or nausea or vomiting. Physical Exam Vital Signs: Vital Signs: Last Vital Signs Temp 97 F 04/04/22 07:04 Pulse 105 H 04/04/22 07:04 Resp 18 04/04/22 07:04 BP 110/56 L 04/04/22 07:04 Pulse Ox 100 04/04/22 07:04 O2 Del Method 04/04/22 07:04 BMI result Body Mass Index 29.8 Appearance: Alert.? Oriented X2-3 , knows his name, hospital, president, which year,but does not know the month cvs: rrr, [id number] . res: clear to auscultation ,no rhonchii or wheezing abd: no rebound,large acitis and tense , bs present. ext pulses present , no cyanosis . neuro: axo3 , nonfocal. Objective Data Active Medications Dextrose (Dextrose 50 % 25 Gm/50 Ml Syringe) 25 gm IVPUSH Q15M PRN; Protocol PRN Reason: per Hypoglycemia Standing Ord. Enoxaparin Sodium (Enoxaparin Sodium 40 Mg/0.4 Ml Syringe) 40 mg SUBCUT Q24H [facility] Last Admin: 04/03/22 18:34 Dose: 40 mg Documented By: WILMA Folic Acid (Folic Acid 1 Mg Tablet) 1 mg PO DAILY [facility] Last Admin: 04/04/22 09:13 Dose: 1 mg Documented By: SHAUNNA Glucose (Glucose Gel 15 Gm Gel..Gram.) 15 gm PO Q15M PRN; Protocol PRN Reason: per Hypoglycemia Standing Ord. Vancomycin HCl 1,250 mg/ (Sodium Chloride) 250 mls @ 166.667 mls/hr IV Q24H [facility] Ceftriaxone Sodium 1 gm/ (Sodium Chloride) 50 mls @ 100 mls/hr IV Q24H [facility] Last Infusion: 04/04/22 09:48 Dose: 0 mls/hr Documented By: SHAUNNA Albumin Human (Kedbumin 25 %) 100 mls @ 100 mls/hr IV Q6H [facility] Stop: 04/05/22 08:59 Last Admin: 04/04/22 14:00 Dose: 100 mls/hr Documented By: FREDDIE Insulin Human Lispro (Insulin Lispro 100 Unit/Ml 3 Ml Vial) 0 unit SUBCUT QIDACHS [facility]; Protocol Last Admin: 04/04/22 11:12 Dose: Not Given Documented By: SULEMAN Non-Admin Reason: No Insulin Coverage Lactulose (Lactulose 20 Gm/30 Ml Solution) 30 gm PO TID [facility] Last Admin: 04/04/22 09:11 Dose: 30 gm Documented By: SHAUNNA Magnesium Oxide (Magnesium Oxide 400 Mg Tablet) 400 mg PO BID [facility] Last Admin: 04/04/22 09:13 Dose: 400 mg Documented By: SHAUNNA Omeprazole (Omeprazole 20 Mg Capsule.Dr) 20 mg PO DAILY@0630 [facility] Last Admin: 04/04/22 05:09 Dose: 20 mg Documented By: NOLVIAORALaNgi Ondansetron HCl (Ondansetron Hcl 4 Mg/2 Ml Vial) 4 mg IVPUSH Q8H PRN PRN Reason: Nausea and Vomiting Pharmacy Consult (Consult Rx Perform Med Rec) 1 each MISCELLANE ONCE PRN PRN Reason: Consult order Pharmacy Consult (Consult Rx Vancomycin Dosing) 1 each MISCELLANE DAILY PRN PRN Reason: Consult order Rifaximin (Rifaximin 550 Mg Tablet) 550 mg PO BID [facility] Last Admin: 04/04/22 09:13 Dose: 550 mg Documented By: SHAUNNA Sodium Chloride (0.9 % Sodium Chloride Flush 3 Ml Syringe) 3 ml IVFLUSH QSHIFT [facility] Last Admin: 04/04/22 14:01 Dose: 3 ml Documented By: FREDDIE Sodium Chloride (Sodium Chloride Tab 1 Gm Tablet) 1 gm PO DAILY [facility] Last Admin: 04/04/22 09:13 Dose: 1 gm Documented By: SHAUNNA Thiamine HCl (Thiamine Hcl 100 Mg Tablet) 100 mg PO DAILY [facility] Last Admin: 04/04/22 09:13 Dose: 100 mg Documented By: SHAUNNA Labs 04/04/22 05:44 04/04/22 05:44 Labs: Laboratory Results - last 24 hr 04/03/22 04/03/22 04/03/22 15:15 17:43 21:23 MCV MCH MCHC RDW Plt Count MPV Absolute Nucleated RBC Nucleated RBC % (auto) Anion Gap Estim Creat Clear Calc Estimated GFR POC Glucose 149 H Random Glucose Lactic Acid F/U @ 2Hr 5.1 H* Calcium Urine Color Dark Yellow Urine Appearance Clear Urine pH 5.5 Ur Specific [place] 1.025 Urine Protein Trace Urine Glucose (UA) Negative Urine Ketones Trace Urine Blood Negative Urine Nitrite Negative Ur Leukocyte Esterase Trace H Urine RBC 3-5 H Urine WBC 0-5 Ur Squamous Epith Cells 0-2 Urine Bacteria None Seen Hyaline Casts 3-5 04/04/22 04/04/22 04/04/22 05:44 05:44 07:03 MCV 100.4 H MCH 35.4 H MCHC 35.3 RDW 16.2 H Plt Count 95 L D MPV 9.5 Absolute Nucleated RBC 0.000 Nucleated RBC % (auto) 0.0 Anion Gap 14 Estim Creat Clear Calc 64.2 Estimated GFR 56 POC Glucose 138 H Random Glucose 139 H Lactic Acid F/U @ 2Hr Calcium 9.7 Urine Color Urine Appearance Urine pH Ur Specific [place] Urine Protein Urine Glucose (UA) Urine Ketones Urine Blood Urine Nitrite Ur Leukocyte Esterase Urine RBC Urine WBC Ur Squamous Epith Cells Urine Bacteria Hyaline Casts 04/04/22 11:11 MCV MCH MCHC RDW Plt Count MPV Absolute Nucleated RBC Nucleated RBC % (auto) Anion Gap Estim Creat Clear Calc Estimated GFR POC Glucose 141 H Random Glucose Lactic Acid F/U @ 2Hr Calcium Urine Color Urine Appearance Urine pH Ur Specific [place] Urine Protein Urine Glucose (UA) Urine Ketones Urine Blood Urine Nitrite Ur Leukocyte Esterase Urine RBC Urine WBC Ur Squamous Epith Cells Urine Bacteria Hyaline Casts Microbiology Microbiology Results: Microbiology 04/03/22 12:27 Blood Culture - Preliminary Blood - Venous Prelim: GNR Gram Stain only Prelim: GPC Gram Stain only Assessment and Plan (1) Gram-negative bacteremia: Status: Acute (2) SAUL (acute kidney injury): Status: Acute (3) Alcoholic cirrhosis: Status: Acute (4) Altered mental status: Status: Acute (5) Toxic metabolic encephalopathy: Status: Acute Plan 56-year-old male with a PMH significant for?ETOH cirrhosis (reports over 1 year sober), ascites, alcohol use disorder, and [id number] DM 2 who presents to the ED after VNA found patient had a covered in stool and urine.? Patient be admitted to the hospital for treatment of hepatic encephalopathy in setting of symptomatic ascites due to alcoholic cirrhosis. Toxic metabolic encephalopathy (Hepatic) encephalopathy in the setting of symptomatic ascites due to alcoholic cirrhosis Mental status improving Patient still has tense ascites, , bacteremia Need diagnostic and therapeutic Paracentesis Albumin 25% q6 Fluid restriction GI eval-noted,Lactulose 30 mg tid withRifaximin 500 b.i.d., had 1 BM last night. Added per rectum lactulose, patient will be going for paracentesis today. In addition bacteremia: UA and chest x-ray seems negative: Abdominal ultrasound shows large ascites Blood cultures are growing Gram-positive cocci and Gram-negative rods-getting paracentesis, continue IV antibiotics, vanco trough, id evaluation added and echo. Electrolytes might need to be changed per rectum- goal of 2-3 bowel movements per day. SAUL: Creatinine seems similar to yesterday. Likely secondary to dehydration, ascites Albumin 25% q6 Hold diuretics Monitor labs Nephrology consult pending. Skin lesions and excoriations General surgery consult pending. Hyponatremia Fluid restriction Monitor Hyperkalemia: Improved with Lokelma Hold spironolactone Monitor Protein calorie malnutrition Nutrition consult Lactic acidosis Chronic, at baseline Secondary to liver disease, not sepsis Non insulin-dependent DM2 Hold metformin SSI Ongoing hospitalization need: SAUL, hyponatremia, bacteremia: Needs IV antibiotics, lactulose, electrolytic monitoring as well as renal function and vanco trough monitoring. Time Spent With Patient Time: Total time managing care of this patient today ____ minutes. Quality Stroke Does the patient have a stroke diagnosis?: No VTE Prior VTE?: No VTE Risk Level:: Medical - moderate - high VTE Device Contraindication: Treatment Not Indicated VTE Drug Contraindication: N/A - Med Ordered
[2022-04-04] MEDS: Lidocaine HCl 1 % 20 ML VIAL 5 ML INFILTRATI (14:34)
[2022-04-04 15:10] LABS: Lactate Dehydrogenase 152 U/L (118-273)
--- NOTE | 2022-04-04 15:25 | MHC.CM.PN ---
EMR REVIEWED, CM MET W/PT PRIOR TO TRANSFER TO ICU, PT REPORTS HE STILL LIVES W/[facility] AND IS RECEIVING THE SAME SERVICES HE WAS LAST ADMIT IN FEBRUARY, PT REPORTS HE FEELS SAFE AT HOME AND WANTS TO RETURN UPON D/C. LAST ADMISSION THERE HAD BEEN AN ELDER AT RISK FILED ON PT AND PER [facility] PT WAS CLEARED TO RETURN HOME TO [facility]. NO CHANGE IN PCP VIANEY GRAMAJO, HCP ON FILE AND PFIZER X3.
[2022-04-04 15:57] LABS: MN% 88.6 %; PMN% 11.4 %; WBC Peritoneal Fluid 0.095 X10*3/uL
[2022-04-04 16:00] LABS: RBC Peritoneal Fluid < 0.002 X10*6/uL
[2022-04-04 16:12] VITALS: BP 136/64; PULSE 86; RESP 16; TEMP 36.7; O2SAT 100
[2022-04-04 16:21] LABS: Glucose, Whole Blood 150 mg/dL (60-115)
[2022-04-04 16:47] LABS: BF Shift QC OK YES; Lymphocyte Peritoneal Fl 35 %; Monocytes Peritoneal Fl 43 %; Neutrophils Peritoneal Fluid 13 %; Other Peritioneal Fl 9 %
[2022-04-04] MEDS: Lidocaine HCl 1 % MPF 5 ML VIAL 20 ML SUBCUT (17:16)
[2022-04-04] MEDS: Enoxaparin Sodium 40 MG/0.4 ML SYRINGE SUBCUT (17:16)
--- NOTE | 2022-04-04 18:03 | PC.NURSE ---
Pt has a bowel movement today,Pt is ST on monitor but denies chest pain ,sob, headache. Pt will continue to be monitored.
[2022-04-04 18:58] LABS: pH Peritoneal Fluid 7.53
[2022-04-04 19:13] LABS: LDH Peritoneal Fluid 30 U/L; Total Protein Peritoneal Fluid 0.7 GM/DL
[2022-04-04 19:32] VITALS: BP 86/51; PULSE 110; RESP 17; TEMP 36.1; O2SAT 100
[2022-04-04 20:08] LABS: Glucose, Whole Blood 145 mg/dL (60-115)
--- NOTE | 2022-04-04 23:13 | P.CNID_ITS ---
History of Present Illness Data of Consult Service Date: 04/04/22 Requesting physician: Jono Arellano Primary Care Provider: MD FANG Nunn Reason for consult: bacteremia He presents with weakness and found in living quarters covered in urine and stool. He has blood cultures from yesterday 03/23 positive from 04/03 for gram negative as well as gram positive. He has alcoholic cirrhosis and just received paracentesis. He has not had blood cultures before. Review of Systems Review of Systems: Yes all other systems are reviewed and are negative PMFSH Past Medical History Medical History SAUL (acute kidney injury) Alcohol abuse Ascites Diabetes Elevated liver enzymes Hypertension Liver cirrhosis Pressure ulcer Withdrawal seizures Family History Family History Other No family history of coronary artery disease Family history: reviewed and not pertinent Surgical History Surgical History No pertinent past surgical history Social History Social History Household Members: Significant Other Housing: House Do you presently have visiting nurse or other home services: Yes Alcohol intake: former Patient Tobacco Use Status: Never used Tobacco Tobacco use type: Smokeless Tobacco Second Hand Smoke Exposure: No Advance Directives Date on File: 03/18/22 service: Yes Current occupational status: unemployed Meds Allergies Allergy/AdvReac Type Severity Reaction Status Date / Time acetaminophen [From PERCOCET] Allergy Severe AGITATION Verified 03/21/22 19:47 oxycodone [From PERCOCET] Allergy Severe AGITATION Verified 03/21/22 19:47 bee pollen [Bee Stings] Allergy Mild SWELLING Verified 03/21/22 19:47 lorazepam AdvReac Unknown AGITATION Verified 03/21/22 19:47 Active Medications: Current Medications Dextrose (Dextrose 50 % 25 Gm/50 Ml Syringe) 25 gm IVPUSH Q15M PRN; Protocol PRN Reason: per Hypoglycemia Standing Ord. Enoxaparin Sodium (Enoxaparin Sodium 40 Mg/0.4 Ml Syringe) 40 mg SUBCUT Q24H [facility] Last Admin: 04/04/22 17:16 Dose: 40 mg Folic Acid (Folic Acid 1 Mg Tablet) 1 mg PO DAILY [facility] Last Admin: 04/04/22 09:13 Dose: 1 mg Glucose (Glucose Gel 15 Gm Gel..Gram.) 15 gm PO Q15M PRN; Protocol PRN Reason: per Hypoglycemia Standing Ord. Vancomycin HCl 1,250 mg/ (Sodium Chloride) 250 mls @ 166.667 mls/hr IV Q24H [facility] Ceftriaxone Sodium 1 gm/ (Sodium Chloride) 50 mls @ 100 mls/hr IV Q24H [facility] Last Infusion: 04/04/22 09:48 Dose: Infused Albumin Human (Kedbumin 25 %) 100 mls @ 100 mls/hr IV Q6H [facility] Stop: 04/05/22 08:59 Last Infusion: 04/04/22 22:48 Dose: Infused Insulin Human Lispro (Insulin Lispro 100 Unit/Ml 3 Ml Vial) 0 unit SUBCUT QIDACHS [facility]; Protocol Last Admin: 04/04/22 21:04 Dose: Not Given Lactulose (Lactulose 20 Gm/30 Ml Solution) 30 gm PO TID [facility] Last Admin: 04/04/22 20:44 Dose: 30 gm Magnesium Oxide (Magnesium Oxide 400 Mg Tablet) 400 mg PO BID [facility] Last Admin: 04/04/22 20:45 Dose: 400 mg Omeprazole (Omeprazole 20 Mg Capsule.Dr) 20 mg PO DAILY@0630 [facility] Last Admin: 04/04/22 05:09 Dose: 20 mg Ondansetron HCl (Ondansetron Hcl 4 Mg/2 Ml Vial) 4 mg IVPUSH Q8H PRN PRN Reason: Nausea and Vomiting Pharmacy Consult (Consult Rx Perform Med Rec) 1 each MISCELLANE ONCE PRN PRN Reason: Consult order Pharmacy Consult (Consult Rx Vancomycin Dosing) 1 each MISCELLANE DAILY PRN PRN Reason: Consult order Rifaximin (Rifaximin 550 Mg Tablet) 550 mg PO BID [facility] Last Admin: 04/04/22 20:43 Dose: 550 mg Sodium Chloride (0.9 % Sodium Chloride Flush 3 Ml Syringe) 3 ml IVFLUSH QSHIFT [facility] Last Admin: 04/04/22 20:44 Dose: 3 ml Sodium Chloride (Sodium Chloride Tab 1 Gm Tablet) 1 gm PO DAILY [facility] Last Admin: 04/04/22 09:13 Dose: 1 gm Thiamine HCl (Thiamine Hcl 100 Mg Tablet) 100 mg PO DAILY [facility] Last Admin: 04/04/22 09:13 Dose: 100 mg Home Medications Medication Instructions Recorded Confirmed Last Taken Type lactulose 10 gram/15 mL oral 30 ml PO BID 03/17/22 04/03/22 04/03/22 History solution omeprazole 20 mg capsule,delayed 1 cap PO DAILY 03/17/22 04/03/22 04/03/22 History release insulin lispro 100 unit/mL 0 sliding scale dose subcut TIDAC 04/03/22 04/03/22 04/03/22 History subcutaneous pen magnesium oxide 400 mg PO BID 04/03/22 04/03/22 04/03/22 History Physical Exam Vital Signs: Vital Signs: Last Vital Signs Temp 96.9 F 04/04/22 19:32 Pulse 110 H 04/04/22 19:32 Resp 17 04/04/22 19:32 BP 86/51 L 04/04/22 19:32 Pulse Ox 100 04/04/22 19:32 O2 Del Method 04/04/22 19:32 BMI result Body Mass Index 29.8 Const: General: cooperative HEENT: Head: Yes normal to inspection Face and sinus: Yes normal facial exam Mouth: Normal oral and palatal mucosa present Teeth and gingiva: dentition normal Eyes: General: appearance normal, both eyes and all related structures Pupils: Equal, round and reactive pupils present Resp: Effort & Inspection: normal respiratory effort Cardio: Rate: regular rate Rhythm: regular rhythm GI: Palpation (GI): Soft to palpation and nontender : General: Yes no CVA tenderness Back/Spine/Pelvis: Back: no CVA tenderness Skin: General skin exam: no rashes or lesions noted Neuro: General: moves all extremities Cranial nerves: Yes Equal, round and reactive pupils present Extrem: General: Yes normal to inspection Psych: Other: confusion Results Labs 04/04/22 05:44 04/04/22 05:44 Labs: Short CBC 04/04/22 Range/Units 05:44 WBC 8.7 (4.8-10.8) X10*3/uL Hgb 9.6 L (14.0-18.0) g/dl Hct 27.2 L (42.0-52.0) % Plt Count 95 L D (160-400) X10*3/uL BMP 04/04/22 05:44 Sodium 127 L Potassium 4.7 Chloride 97 Carbon Dioxide 21 L BUN 31 H Creatinine 1.32 Calcium 9.7 Microbiology Microbiology Results: Microbiology 04/03/22 12:27 Blood - Venous Blood Culture - Preliminary No growth after 24 hours. 04/03/22 12:27 Blood - Venous Blood Culture - Preliminary Prelim: GNR Gram Stain only Prelim: GPC Gram Stain only Assessment and Plan (1) Gram-negative bacteremia: Status: Acute (2) SAUL (acute kidney injury): Status: Acute (3) Alcoholic cirrhosis: Status: Acute (4) Altered mental status: Status: Acute One blood culture with multiple organisms are gram negative and gram positive so may be due to contamination. It is unusual to have two organisms SBP He appeared confused so cover for sepsis. Plan Continue Ceftriaxone and Vancomycin for now. Await results of above. Time Spent With Patient Time: Total time managing care of this patient today ____ minutes.
[2022-04-05] VITALS: BP 130/62; PULSE 115; RESP 18; TEMP 36.4; O2SAT 98
[2022-04-05] MEDS: Albumin Human 25 % 100 ML IV ×2 (01:12→14:37)
[2022-04-05 03:53] VITALS: BP 108/58; PULSE 116; RESP 18; TEMP 36.2; O2SAT 99
[2022-04-05] MEDS: Omeprazole 20 MG CAPSULE.DR PO (05:54)
[2022-04-05 07:24] VITALS: BP 97/52; PULSE 100; RESP 17; TEMP 36.4; O2SAT 100
[2022-04-05 07:46] LABS: Glucose, Whole Blood 212 mg/dL (60-115)
--- NOTE | 2022-04-05 08:33 | PM.PNNEP ---
Subjective Subjective Date of Service: 04/05/22 Interval history: seen and examined no complaints Physical Exam Vital Signs: Vital Signs: Last Vital Signs Temp 97.6 F 04/05/22 07:24 Pulse 100 04/05/22 07:24 Resp 17 04/05/22 07:24 BP 97/52 L 04/05/22 07:24 Pulse Ox 100 04/05/22 07:24 O2 Del Method 04/05/22 07:24 BMI result Body Mass Index 29.8 Const: General: no acute distress HEENT: Head: Yes normocephalic and Yes atraumatic Neck: Neck: Yes supple Resp: Auscultation: diminished lung sounds Cardio: Heart sounds: S1 normal heart sound present and S2 normal heart sound present GI: Palpation (GI): nontender and Ascites present Extrem: General: Yes edema Objective Data Labs 04/04/22 05:44 04/04/22 05:44 Labs: Laboratory Results - last 24 hr 04/04/22 04/04/22 04/04/22 11:11 14:26 15:20 POC Glucose 141 H Lactate Dehydrogenase 152 Peritoneal pH Peritoneal WBC 0.095 Peritoneal RBC < 0.002 Periton Neutrophils 13 Periton Lymphocytes 35 Peritoneal Monocytes 43 Peritoneal Other Cells 9 Peritoneal Tot Protein Peritoneal LDH 04/04/22 04/04/22 04/04/22 15:20 15:20 16:15 POC Glucose 150 H Lactate Dehydrogenase Peritoneal pH 7.53 Peritoneal WBC Peritoneal RBC Periton Neutrophils Periton Lymphocytes Peritoneal Monocytes Peritoneal Other Cells Peritoneal Tot Protein 0.7 Peritoneal LDH 30 04/04/22 04/05/22 20:03 07:38 POC Glucose 145 H 212 H Lactate Dehydrogenase Peritoneal pH Peritoneal WBC Peritoneal RBC Periton Neutrophils Periton Lymphocytes Peritoneal Monocytes Peritoneal Other Cells Peritoneal Tot Protein Peritoneal LDH Microbiology Microbiology Results: Microbiology 04/03/22 12:27 Blood - Venous Blood Culture - Preliminary Gram negative rand Gram positive cocci 04/03/22 12:27 Blood - Venous Blood Culture - Preliminary No growth after 24 hours. Procedures Date of Service Date of Service: 04/05/22 Assessment & Plan Assessment and plan (1) SAUL (acute kidney injury): Status: Acute (2) Hyponatremia: Status: Acute (3) Alcoholic cirrhosis: Status: Acute Plan SAUL due to pre renal state in the setting of ETOH liver cirrhosis r/o hepatorenal syndrome type I but less likely hypervolemic hyponatremia in the setting of hepatic physiology underlying type 2 HRS REC fluid restriction continue albumin infusion no urea midodrine for low BP no IVF follow kidney function and electrolytes Time Spent With Patient Time: Total time managing care of this patient today ____ minutes. Progress Note: Quality Stroke Does the patient have a stroke diagnosis?: No
[2022-04-05 08:50] LABS: Anion Gap 13 (12-20); Blood Urea Nitrogen 22 mg/dL (9-16); Calcium 9.3 mg/dL (8.4-10.2); Carbon Dioxide 19 mmol/L (22-29); Chloride 101 mmol/L (96-108); Creatinine Clr Calc Pharmacy 72.4; Estimated Glomerular Filt Rate > 60; Glucose Random 173 mg/dL (60-115); Potassium 4.4 mmol/L (3.3-5.1); Sodium 129 mmol/L (135-145)
[2022-04-05] MEDS: Lactulose 20 GM/30 ML SOLUTION 30 GM PO ×3 (08:53→20:19)
[2022-04-05] MEDS: rifAXIMin 550 MG TABLET PO ×2 (08:54→20:19)
[2022-04-05] MEDS: Insulin Lispro 100 UNIT/ML 3 ML VIAL SUBCUT ×3 (08:54→20:18)
[2022-04-05] MEDS: Folic Acid 1 MG TABLET PO (08:54)
[2022-04-05] MEDS: Thiamine HCL 100 MG TABLET PO (08:54)
[2022-04-05] MEDS: Sodium Chloride Tab 1 GM TABLET PO (08:54)
[2022-04-05] MEDS: Magnesium Oxide 400 MG TABLET PO ×2 (08:54→20:20)
[2022-04-05] MEDS: 0.9 % Sodium Chloride Flush 3 ML SYRINGE IVFLUSH ×3 (11:31→23:19)
[2022-04-05] MEDS: cefTRIAXone sodium 1 GM in 0.9 % Sodium Chloride 50 ML IV (11:31)
[2022-04-05 11:50] LABS: Glucose, Whole Blood 137 mg/dL (60-115)
--- NOTE | 2022-04-05 12:14 | P.PNIM_ITS ---
Subjective Subjective Date of Service: 04/05/22 Interval History: bacteremia, toxic metabolic encephalopathy Review of Systems Mental status is improving similar to yesterday. Patient had 3 BMs over night Had paracentesis yesterday. Denies any fever chills or abdominal pain Physical Exam Vital Signs: Vital Signs: Last Vital Signs Temp 97.6 F 04/05/22 07:24 Pulse 100 04/05/22 07:24 Resp 17 04/05/22 07:24 BP 97/52 L 04/05/22 07:24 Pulse Ox 100 04/05/22 07:24 O2 Del Method 04/05/22 07:24 BMI result Body Mass Index 29.8 Appearance: Alert.? Oriented X2-3 , knows his name, hospital, president, which year,but does not know the month cvs: rrr, [id number] . res: clear to auscultation ,no rhonchii or wheezing abd: no rebound,large acitis and tense , bs present. ext pulses present , no cyanosis . neuro: axo3 , nonfocal. Objective Data Active Medications Dextrose (Dextrose 50 % 25 Gm/50 Ml Syringe) 25 gm IVPUSH Q15M PRN; Protocol PRN Reason: per Hypoglycemia Standing Ord. Enoxaparin Sodium (Enoxaparin Sodium 40 Mg/0.4 Ml Syringe) 40 mg SUBCUT Q24H [facility] Last Admin: 04/04/22 17:16 Dose: 40 mg Documented By: SHAUNNA Folic Acid (Folic Acid 1 Mg Tablet) 1 mg PO DAILY [facility] Last Admin: 04/05/22 08:54 Dose: 1 mg Documented By: SHAUNNA Glucose (Glucose Gel 15 Gm Gel..Gram.) 15 gm PO Q15M PRN; Protocol PRN Reason: per Hypoglycemia Standing Ord. Vancomycin HCl 1,250 mg/ (Sodium Chloride) 250 mls @ 166.667 mls/hr IV Q24H [facility] Ceftriaxone Sodium 1 gm/ (Sodium Chloride) 50 mls @ 100 mls/hr IV Q24H [facility] Last Admin: 04/05/22 11:31 Dose: 100 mls/hr Documented By: ALEXUS Insulin Human Lispro (Insulin Lispro 100 Unit/Ml 3 Ml Vial) 0 unit SUBCUT QIDACHS [facility]; Protocol Last Admin: 04/05/22 08:54 Dose: 2 unit Documented By: SHAUNNA Lactulose (Lactulose 20 Gm/30 Ml Solution) 30 gm PO TID [facility] Last Admin: 04/05/22 08:53 Dose: 30 gm Documented By: SHAUNNA Magnesium Oxide (Magnesium Oxide 400 Mg Tablet) 400 mg PO BID [facility] Last Admin: 04/05/22 08:54 Dose: 400 mg Documented By: SHAUNNA Omeprazole (Omeprazole 20 Mg Capsule.Dr) 20 mg PO DAILY@0630 [facility] Last Admin: 04/05/22 05:54 Dose: 20 mg Documented By: PREM Ondansetron HCl (Ondansetron Hcl 4 Mg/2 Ml Vial) 4 mg IVPUSH Q8H PRN PRN Reason: Nausea and Vomiting Pharmacy Consult (Consult Rx Perform Med Rec) 1 each MISCELLANE ONCE PRN PRN Reason: Consult order Pharmacy Consult (Consult Rx Vancomycin Dosing) 1 each MISCELLANE DAILY PRN PRN Reason: Consult order Rifaximin (Rifaximin 550 Mg Tablet) 550 mg PO BID [facility] Last Admin: 04/05/22 08:54 Dose: 550 mg Documented By: SHAUNNA Sodium Chloride (0.9 % Sodium Chloride Flush 3 Ml Syringe) 3 ml IVFLUSH QSHIFT [facility] Last Admin: 04/05/22 11:31 Dose: 3 ml Documented By: ALEXUS Sodium Chloride (Sodium Chloride Tab 1 Gm Tablet) 1 gm PO DAILY [facility] Last Admin: 04/05/22 08:54 Dose: 1 gm Documented By: SHAUNNA Thiamine HCl (Thiamine Hcl 100 Mg Tablet) 100 mg PO DAILY [facility] Last Admin: 04/05/22 08:54 Dose: 100 mg Documented By: SHAUNNA Labs 04/04/22 05:44 04/05/22 08:15 Labs: Laboratory Results - last 24 hr 04/04/22 04/04/22 04/04/22 14:26 15:20 15:20 Anion Gap Estim Creat Clear Calc Estimated GFR POC Glucose Random Glucose Calcium Lactate Dehydrogenase 152 Peritoneal pH 7.53 Peritoneal WBC 0.095 Peritoneal RBC < 0.002 Periton Neutrophils 13 Periton Lymphocytes 35 Peritoneal Monocytes 43 Peritoneal Other Cells 9 Peritoneal Tot Protein Peritoneal LDH 04/04/22 04/04/22 04/04/22 15:20 16:15 20:03 Anion Gap Estim Creat Clear Calc Estimated GFR POC Glucose 150 H 145 H Random Glucose Calcium Lactate Dehydrogenase Peritoneal pH Peritoneal WBC Peritoneal RBC Periton Neutrophils Periton Lymphocytes Peritoneal Monocytes Peritoneal Other Cells Peritoneal Tot Protein 0.7 Peritoneal LDH 30 04/05/22 04/05/22 04/05/22 07:38 08:15 11:43 Anion Gap 13 Estim Creat Clear Calc 72.4 Estimated GFR > 60 POC Glucose 212 H 137 H Random Glucose 173 H Calcium 9.3 Lactate Dehydrogenase Peritoneal pH Peritoneal WBC Peritoneal RBC Periton Neutrophils Periton Lymphocytes Peritoneal Monocytes Peritoneal Other Cells Peritoneal Tot Protein Peritoneal LDH Microbiology Microbiology Results: Microbiology 04/04/22 07:20 Blood Culture - Preliminary Blood - Venous No growth after 24 hours. 04/04/22 07:20 Blood Culture - Preliminary Blood - Venous No growth after 24 hours. 04/04/22 15:20 Gram Stain - Final Abdominal Fluid Routine Culture - Preliminary No growth to date. Anaerobic Culture - Preliminary No growth to date. 04/03/22 12:27 Blood Culture - Preliminary Blood - Venous Gram negative rand Gram positive cocci 04/03/22 12:27 Blood Culture - Preliminary Blood - Venous No growth after 24 hours. Assessment and Plan (1) Gram-negative bacteremia: Status: Acute (2) SAUL (acute kidney injury): Status: Acute (3) Alcoholic cirrhosis: Status: Acute (4) Altered mental status: Status: Acute (5) Toxic metabolic encephalopathy: Status: Acute Plan 56-year-old male with a PMH significant for?ETOH cirrhosis (reports over 1 year sober), ascites, alcohol use disorder, and [id number] DM 2 who presents to the ED after VNA found patient had a covered in stool and urine.? Patient be admitted to the hospital for treatment of hepatic encephalopathy in setting of symptomatic ascites due to alcoholic cirrhosis. Toxic metabolic encephalopathy (Hepatic) encephalopathy in the setting of symptomatic ascites due to alcoholic cirrhosis Mental status improving Patient still has tense ascites, , bacteremia Need diagnostic and therapeutic Paracentesis Albumin 25% q6 Fluid restriction GI eval-noted,Lactulose 30 mg tid withRifaximin 500 b.i.d., had 1 BM last night. Added per rectum lactulose, patient will be going for paracentesis yesterday 7.8 liter fluid removed. In addition bacteremia: UA and chest x-ray seems negative: Abdominal ultrasound shows large ascites Blood cultures are growing Gram-positive cocci and Gram-negative rods-getting paracentesis, continue IV antibiotics, vanco trough, id evaluation added and echo. d/w Id:? cotaminant, continue antibiotic for now, wait for cultures to come back Electrolytes might need to be changed per rectum- goal of 2-3 bowel movements per day. SAUL: Creatinine improvin Likely secondary to dehydration, ascites given Albumin Hold diuretics Monitor labs Nephrology consult pending. Skin lesions and excoriations General surgery consult pending. Hyponatremia-improving Fluid restriction Monitor Hyperkalemia: Improved with Lokelma Hold spironolactone Monitor Protein calorie malnutrition Nutrition consult Lactic acidosis Chronic, at baseline Secondary to liver disease, not sepsis Non insulin-dependent DM2 Hold metformin SSI foot wound care : has left foot -big superficial blister, muliple skin excoriations : wound care. Ongoing hospitalization need: SAUL, hyponatremia, bacteremia: Needs IV antibiotics, lactulose, electrolytic monitoring as well as renal function and vanco trough monitoring. Time Spent With Patient Time: Total time managing care of this patient today ____ minutes. Quality Stroke Does the patient have a stroke diagnosis?: No VTE Prior VTE?: No VTE Risk Level:: Medical - moderate - high VTE Device Contraindication: Treatment Not Indicated VTE Drug Contraindication: N/A - Med Ordered
[2022-04-05] MEDS: vancomycin HCL 1,250 MG in 0.9 % Sodium Chloride 250 ML 166.67 MG IV (12:17)
[2022-04-05 16:00] VITALS: BP 105/60; PULSE 115; RESP 17; TEMP 36.7; O2SAT 96
[2022-04-05 16:44] LABS: Glucose, Whole Blood 180 mg/dL (60-115)
[2022-04-05] MEDS: Enoxaparin Sodium 40 MG/0.4 ML SYRINGE SUBCUT (17:14)
[2022-04-05 19:28] VITALS: BP 110/60; PULSE 121; RESP 18; TEMP 36.4; O2SAT 99
[2022-04-05 20:01] LABS: Glucose, Whole Blood 177 mg/dL (60-115)
--- NOTE | 2022-04-05 22:16 | P.CONGS_ITS ---
History of Present Illness Consult details Consult date: 04/04/22 Narrative: The patient is a 56-year-old male with severe liver disease who was found down and brought into the hospital. He has multiple skin lesions throughout his body and his left heel has a large blood blister present. He has been treated medically for his encephalopathy and his ascites Review of Systems Review of Systems: Yes Unobtainable due to mental status PMFSH Past Medical History Medical History SAUL (acute kidney injury) Alcohol abuse Ascites Diabetes Elevated liver enzymes Hypertension Liver cirrhosis Pressure ulcer Withdrawal seizures Family History Family History Other No family history of coronary artery disease Family history: reviewed and not pertinent Surgical History Surgical History No pertinent past surgical history Social History Social History Household Members: Significant Other Housing: House Do you presently have visiting nurse or other home services: Yes Alcohol intake: former Patient Tobacco Use Status: Never used Tobacco Tobacco use type: Smokeless Tobacco Second Hand Smoke Exposure: No Advance Directives Date on File: 03/18/22 service: Yes Current occupational status: unemployed Meds Allergies Allergy/AdvReac Type Severity Reaction Status Date / Time acetaminophen [From PERCOCET] Allergy Severe AGITATION Verified 03/21/22 19:47 oxycodone [From PERCOCET] Allergy Severe AGITATION Verified 03/21/22 19:47 bee pollen [Bee Stings] Allergy Mild SWELLING Verified 03/21/22 19:47 lorazepam AdvReac Unknown AGITATION Verified 03/21/22 19:47 Active Medications: Current Medications Dextrose (Dextrose 50 % 25 Gm/50 Ml Syringe) 25 gm IVPUSH Q15M PRN; Protocol PRN Reason: per Hypoglycemia Standing Ord. Enoxaparin Sodium (Enoxaparin Sodium 40 Mg/0.4 Ml Syringe) 40 mg SUBCUT Q24H [facility] Last Admin: 04/05/22 17:14 Dose: 40 mg Folic Acid (Folic Acid 1 Mg Tablet) 1 mg PO DAILY [facility] Last Admin: 04/05/22 08:54 Dose: 1 mg Glucose (Glucose Gel 15 Gm Gel..Gram.) 15 gm PO Q15M PRN; Protocol PRN Reason: per Hypoglycemia Standing Ord. Vancomycin HCl 1,250 mg/ (Sodium Chloride) 250 mls @ 166.667 mls/hr IV Q24H [facility] Last Infusion: 04/05/22 14:13 Dose: Infused Ceftriaxone Sodium 1 gm/ (Sodium Chloride) 50 mls @ 100 mls/hr IV Q24H [facility] Last Infusion: 04/05/22 12:20 Dose: Infused Insulin Human Lispro (Insulin Lispro 100 Unit/Ml 3 Ml Vial) 0 unit SUBCUT QIDACHS [facility]; Protocol Last Admin: 04/05/22 20:18 Dose: 2 unit Lactulose (Lactulose 20 Gm/30 Ml Solution) 30 gm PO TID [facility] Last Admin: 04/05/22 20:19 Dose: 30 gm Magnesium Oxide (Magnesium Oxide 400 Mg Tablet) 400 mg PO BID [facility] Last Admin: 04/05/22 20:20 Dose: 400 mg Omeprazole (Omeprazole 20 Mg Capsule.Dr) 20 mg PO DAILY@0630 [facility] Last Admin: 04/05/22 05:54 Dose: 20 mg Ondansetron HCl (Ondansetron Hcl 4 Mg/2 Ml Vial) 4 mg IVPUSH Q8H PRN PRN Reason: Nausea and Vomiting Pharmacy Consult (Consult Rx Perform Med Rec) 1 each MISCELLANE ONCE PRN PRN Reason: Consult order Pharmacy Consult (Consult Rx Vancomycin Dosing) 1 each MISCELLANE DAILY PRN PRN Reason: Consult order Rifaximin (Rifaximin 550 Mg Tablet) 550 mg PO BID [facility] Last Admin: 04/05/22 20:19 Dose: 550 mg Sodium Chloride (0.9 % Sodium Chloride Flush 3 Ml Syringe) 3 ml IVFLUSH [facility] Last Admin: 04/05/22 15:51 Dose: 3 ml Sodium Chloride (Sodium Chloride Tab 1 Gm Tablet) 1 gm PO DAILY [facility] Last Admin: 04/05/22 08:54 Dose: 1 gm Thiamine HCl (Thiamine Hcl 100 Mg Tablet) 100 mg PO DAILY [facility] Last Admin: 04/05/22 08:54 Dose: 100 mg Home Medications Medication Instructions Recorded Confirmed Last Taken Type lactulose 10 gram/15 mL oral 30 ml PO BID 03/17/22 04/03/22 04/03/22 History solution omeprazole 20 mg capsule,delayed 1 cap PO DAILY 03/17/22 04/03/22 04/03/22 History release insulin lispro 100 unit/mL 0 sliding scale dose subcut TIDAC 04/03/22 04/03/22 04/03/22 History subcutaneous pen magnesium oxide 400 mg PO BID 04/03/22 04/03/22 04/03/22 History Physical Exam Vital Signs: Vital Signs: Last Vital Signs Temp 97.5 F 04/05/22 19:28 Pulse 121 H 04/05/22 19:28 Resp 18 04/05/22 19:28 BP 110/60 04/05/22 19:28 Pulse Ox 99 04/05/22 19:28 O2 Del Method 04/05/22 19:28 BMI result Body Mass Index 29.8 Skin: Other: Throughout the patient's skin he has small little scabs throughout some of them are partially open unsure the etiology of this. None of which looked tremendously infected etc. The left heel is a large blood blister that looks relatively dry no evidence of infection. No open area here. No evidence of any ischemia of the foot Results Labs 04/04/22 05:44 04/05/22 08:15 Labs: Abnormal lab results 04/05/22 04/05/22 04/05/22 Range/Units 07:38 08:15 11:43 Sodium 129 L (135-145) mmol/L Carbon Dioxide 19 L (22-29) mmol/L BUN 22 H (9-16) mg/dL POC Glucose 212 H 137 H (60-115) mg/dL Random Glucose 173 H (60-115) mg/dL 04/05/22 04/05/22 Range/Units 16:39 19:49 Sodium (135-145) mmol/L Carbon Dioxide (22-29) mmol/L BUN (9-16) mg/dL POC Glucose 180 H 177 H (60-115) mg/dL Random Glucose (60-115) mg/dL BMP 04/05/22 08:15 Sodium 129 L Potassium 4.4 Chloride 101 Carbon Dioxide 19 L BUN 22 H Creatinine 1.17 Calcium 9.3 Urine 04/03/22 Range/Units 15:15 Urine Color Dark Yellow Urine Appearance Clear Urine pH 5.5 (5.0-9.0) Ur Specific [place] 1.025 (1.005-1.025) Urine Protein Trace (Neg-Trace) mg/dL Urine Glucose (UA) Negative (Negative) mg/dL All other labs normal. Assessment and Plan (1) Pressure ulcer: Status: Acute Plan Patient has multiple skin lesions question the etiology but none of them are very significant. He was found down not a very clean environment and it is obvious that he does not take good care of himself. Would recommend any open weeping areas to be treated with just bacitracin ointment. The base of his left heel taking up a significant aspect of the tissue here has a superficial blood blister which is drying. There is no evidence of any significant deep tissue injury. Question the etiology for this as it does not appear to be consistent with a pressure wound all over plantar aspect of the aylin l. At this point the areas dry clean noninfected would just leave alone. I think this will dry up and then Slough off Time Spent With Patient Time: Total time managing care of this patient today ____ minutes. Procedures Date of Service Date of Service: 04/04/22
[2022-04-05 23:49] VITALS: BP 108/64; PULSE 122; RESP 18; TEMP 36.3; O2SAT 100
[2022-04-06 03:27] VITALS: BP 90/55; PULSE 120; RESP 18; TEMP 36.1; O2SAT 98
[2022-04-06] MEDS: Omeprazole 20 MG CAPSULE.DR PO (06:28)
[2022-04-06 06:47] LABS: Vancomycin Random 15.5 mcg/mL (15-20)
[2022-04-06 06:48] LABS: Creatinine Clr Calc Pharmacy 81.5; Estimated Glomerular Filt Rate > 60
--- NOTE | 2022-04-06 06:56 | HE.PHANOTE ---
Vancomycin Dosing Random level is therapuetic today however dose was given 4 hours late yesterday therefore this level is not an accurate trough. Trough is expected to be in therapeutic levels however will get a trough tomorrow. Will continue current regimen, next dose adjusted to be 24 hours after previous dose given to reduce risk of toxicity. Annie Zuleta, KassiD
--- NOTE | 2022-04-06 07:00 | CA_ITS ---
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 Normal LV systolic and diastolic function 2. No clear evidence of vegetations on this study 3. Normal cardiac valvular Doppler 4. No gross pericardial effusion Findings Procedure Information Contrast agent, definity, is being given per protocol without apparent complications. Left Ventricle Normal left ventricular size, thickness, and systolic function. The visually estimated ejection fraction is between 65-70%. Spectral Doppler is indicative of a normal filling pattern. Right Ventricle Normal right ventricular cavity size and systolic function. Atria Both atria are normal in size. Interatrial shunt cannot be excluded. Aortic Valve Normal aortic valve structure and function. There is no aortic valve stenosis. There is no aortic valve regurgitation. Mitral Valve Likely normal mitral valve structure and function. There is trace mitral valve regurgitation. There is no mitral valve stenosis. Pulmonic Valve The pulmonic valve is likely normal. Tricuspid Valve Likely normal tricuspid valve structure and function. Tricuspid regurgitation envelope is inadequate for calculation of right ventricular systolic pressure. Normal right atrial pressure. Great Vessels All visible segments of the aorta are normal in size. The pulmonary artery was not well visualized. Venous The inferior vena cava is normal in size and collapses greater than 50% with inspiration. Pericardium/Pleural There is no evidence of pericardial effusion. Prior Study Comparison No prior study available for comparison. Recommendations, Care & Conclusions Consider a LAZARO if clinically appropriate. Measurements 2D Linear Measurements IVSd: 0.98 0.6-0.9/0.6-1.0 cm LVIDd: 4.48 3.9-5.3/4.2-5.9 cm LVIDd Index: 2.32 2.4-3.2/2.2-3.1 cm/m2 LVIDs: 2.14 2.0-3.6 cm LVPWd: 0.98 0.7-1.1 cm LA Diam: 3.60 2.7-3.8/3.0-4.0 cm LAIDs Index: 1.87 1.5-2.3 cm/m2 LV Mass: 184.78 67-162/88-224 g LV Mass Index: 95.74 43-95/49-115 g/m2 LVOT Diam: 2.00 3.0+(-)1.3 cm 2D Systolic Function EF 4C: 67.80 >55% EF 2C: 65.50 >55% EF BiP: 68.70 >55% Mitral Valve MV Pk E: 0.97 MV PK A: 0.85 MV Decel Time: 160.00 E/A: 1.10 E'Lateral: 10.30 E'Medial: 8.16 E/E' Med: 11.90 E/E' Lat: 9.40 PHT: 47.00 MVA PHT: 4.68 Decel [place]: 6.05 Aortic Valve AoV Pk Donny: 1.44 AoV Mn Donny: 1.08 AoV VTI: 0.28 AoV Pk Grad: 8.00 Aov Mn Grad: 5.00 KAYLYN Cont.VTI: 2.63 LVOT LVOT Pk Donny: 1.19 LVOT Mn Donny: 0.87 LVOT VTI: 0.24 LVOT Pk Grad: 6.00 LVOT Mn Grad: 3.00 LVOT Diam: 2.00 LVOT Area: 3.14 Diastolic Function MV Pk E: 0.97 MV Pk A: 0.85 E/A: 1.10 E'Medial: 8.16 E/E' Med: 11.90 E' Laterial: 10.30 E/E' Lat: 9.40 Right Ventricle TAPSE (mm): 23.50 TVS' Donny: 20.00 Tricuspid Valve RA Press: 3.00 Great Vessels Aorta Sinus of Valsalva: 3.68 2.0-3.[address] [place]: 2.84 1.7-3.4 cm Ao Asc: 3.10 2.1-3.4 cm Updated in Other Vendor System with Status of Final Juan Ramon Shannon MD electronically signed on 04/06/2022 2:55:43 PM with status of Final
[2022-04-06 07:16] LABS: Albumin Peritoneal Fluid 0.4
[2022-04-06 07:39] LABS: Glucose, Whole Blood 150 mg/dL (60-115)
[2022-04-06 08:00] VITALS: BP 104/58; PULSE 112; RESP 18; TEMP 36.7; O2SAT 100
[2022-04-06] MEDS: 0.9 % Sodium Chloride Flush 3 ML SYRINGE IVFLUSH ×3 (08:29→20:48)
[2022-04-06] MEDS: rifAXIMin 550 MG TABLET PO ×2 (08:29→20:47)
[2022-04-06] MEDS: Lactulose 20 GM/30 ML SOLUTION 30 GM PO ×3 (08:30→20:47)
[2022-04-06] MEDS: Folic Acid 1 MG TABLET PO (08:30)
[2022-04-06] MEDS: Magnesium Oxide 400 MG TABLET PO ×2 (08:30→20:47)
[2022-04-06] MEDS: Thiamine HCL 100 MG TABLET PO (08:30)
[2022-04-06] MEDS: Sodium Chloride Tab 1 GM TABLET PO (08:30)
[2022-04-06] MEDS: cefTRIAXone sodium 1 GM in 0.9 % Sodium Chloride 50 ML IV (08:31)
--- NOTE | 2022-04-06 08:34 | P.PNIM_ITS ---
Subjective Subjective Date of Service: 04/06/22 Interval History: Toxic metabolic encephalopathy Review of Systems Mental status is improving .? ? unlcear if had any bm's last night Had paracentesis 2 days back. boderline bp. Denies any fever chills or abdominal pain Physical Exam Vital Signs: Vital Signs: Last Vital Signs Temp 98.0 F 04/06/22 08:00 Pulse 112 H 04/06/22 08:00 Resp 18 04/06/22 08:00 BP 104/58 L 04/06/22 08:00 Pulse Ox 100 04/06/22 08:00 O2 Del Method 04/06/22 08:00 BMI result Body Mass Index 29.8 Appearance: Alert.? Oriented X2-3 , knows his name, hospital, president, which year,but does not know the month cvs: rrr, [id number] . res: clear to auscultation ,no rhonchii or wheezing abd: no rebound,acitis seems improvin , bs present. ext pulses present , no cyanosis . neuro: axo3 , nonfocal. Objective Data Active Medications Dextrose (Dextrose 50 % 25 Gm/50 Ml Syringe) 25 gm IVPUSH Q15M PRN; Protocol PRN Reason: per Hypoglycemia Standing Ord. Enoxaparin Sodium (Enoxaparin Sodium 40 Mg/0.4 Ml Syringe) 40 mg SUBCUT Q24H [facility] Last Admin: 04/05/22 17:14 Dose: 40 mg Documented By: EDUARDO Folic Acid (Folic Acid 1 Mg Tablet) 1 mg PO DAILY [facility] Last Admin: 04/06/22 08:30 Dose: 1 mg Documented By: JOSE LUIS Glucose (Glucose Gel 15 Gm Gel..Gram.) 15 gm PO Q15M PRN; Protocol PRN Reason: per Hypoglycemia Standing Ord. Ceftriaxone Sodium 1 gm/ (Sodium Chloride) 50 mls @ 100 mls/hr IV Q24H [facility] Last Admin: 04/06/22 08:31 Dose: 100 mls/hr Documented By: JOSE LUIS Vancomycin HCl 1,250 mg/ (Sodium Chloride) 250 mls @ 166.667 mls/hr IV Q24H [facility] Insulin Human Lispro (Insulin Lispro 100 Unit/Ml 3 Ml Vial) 0 unit SUBCUT QIDACHS [facility]; Protocol Last Admin: 04/06/22 07:46 Dose: Not Given Documented By: JOSE LUIS Non-Admin Reason: No Insulin Coverage Lactulose (Lactulose 20 Gm/30 Ml Solution) 30 gm PO TID [facility] Last Admin: 04/06/22 08:30 Dose: 30 gm Documented By: JOSE LUIS Comments: Magnesium Oxide (Magnesium Oxide 400 Mg Tablet) 400 mg PO BID [facility] Last Admin: 04/06/22 08:30 Dose: 400 mg Documented By: JOSE LUIS Omeprazole (Omeprazole 20 Mg Capsule.Dr) 20 mg PO DAILY@0630 [facility] Last Admin: 04/06/22 06:28 Dose: 20 mg Documented By: MILAGROSRISAngela Ondansetron HCl (Ondansetron Hcl 4 Mg/2 Ml Vial) 4 mg IVPUSH Q8H PRN PRN Reason: Nausea and Vomiting Pharmacy Consult (Consult Rx Perform Med Rec) 1 each MISCELLANE ONCE PRN PRN Reason: Consult order Pharmacy Consult (Consult Rx Vancomycin Dosing) 1 each MISCELLANE DAILY PRN PRN Reason: Consult order Rifaximin (Rifaximin 550 Mg Tablet) 550 mg PO BID [facility] Last Admin: 04/06/22 08:29 Dose: 550 mg Documented By: JOSE LUIS Sodium Chloride (0.9 % Sodium Chloride Flush 3 Ml Syringe) 3 ml IVFLUSH QSHIFT [facility] Last Admin: 04/06/22 08:29 Dose: 3 ml Documented By: JOSE LUIS Sodium Chloride (Sodium Chloride Tab 1 Gm Tablet) 1 gm PO DAILY [facility] Last Admin: 04/06/22 08:30 Dose: 1 gm Documented By: JOSE LUIS Thiamine HCl (Thiamine Hcl 100 Mg Tablet) 100 mg PO DAILY [facility] Last Admin: 04/06/22 08:30 Dose: 100 mg Documented By: JOSE LUIS Labs 04/04/22 05:44 04/06/22 05:41 Labs: Laboratory Results - last 24 hr 04/04/22 04/05/22 04/05/22 15:20 08:15 11:43 Anion Gap 13 Estim Creat Clear Calc 72.4 Estimated GFR > 60 POC Glucose 137 H Random Glucose 173 H Calcium 9.3 Peritoneal Albumin 0.4 Random Vancomycin 04/05/22 04/05/22 04/06/22 16:39 19:49 05:41 Anion Gap Estim Creat Clear Calc Estimated GFR POC Glucose 180 H 177 H Random Glucose Calcium Peritoneal Albumin Random Vancomycin 15.5 04/06/22 04/06/22 05:41 07:32 Anion Gap Estim Creat Clear Calc 81.5 Estimated GFR > 60 POC Glucose 150 H Random Glucose Calcium Peritoneal Albumin Random Vancomycin Microbiology Microbiology Results: Microbiology 04/04/22 15:20 Gram Stain - Final Abdominal Fluid Routine Culture - Preliminary No growth to date. Anaerobic Culture - Preliminary No growth to date. 04/03/22 12:27 Blood Culture - Preliminary Blood - Venous No growth after 48 hours. 04/04/22 07:20 Blood Culture - Preliminary Blood - Venous No growth after 24 hours. 04/04/22 07:20 Blood Culture - Preliminary Blood - Venous No growth after 24 hours. 04/03/22 12:27 Blood Culture - Preliminary Blood - Venous Gram negative rand Gram positive cocci Assessment and Plan (1) Gram-negative bacteremia: Status: Acute (2) ASUL (acute kidney injury): Status: Acute (3) Alcoholic cirrhosis: Status: Acute (4) Altered mental status: Status: Acute (5) Toxic metabolic encephalopathy: Status: Acute (6) Acute hyponatremia: Status: Acute Plan 56-year-old male with a PMH significant for?ETOH cirrhosis (reports over 1 year sober), ascites, alcohol use disorder, and [id number] DM 2 who presents to the ED after VNA found patient had a covered in stool and urine.? Patient be admitted to the hospital for treatment of hepatic encephalopathy in setting of symptomatic ascites due to alcoholic cirrhosis. Toxic metabolic encephalopathy (Hepatic) encephalopathy-multifactorial in the setting of symptomatic ascites due to alcoholic cirrhosis Mental status improving hyponatremia seems improving Patient still has tense ascites, , bacteremia ? cotaminant s/p diagnostic and therapeutic Paracentesis-no sbp. recived Albumin 25% q6 Electrolytes might need to be changed per rectum- goal of 2-3 bowel movements yesterday, ? unclear if had any BM Continue lactulose and rifaximin, will add per rectum lactulose does timex 1 d/w nephro-started sprinolactone and lasix As per Nephro consider adding midodrine if needed for borderline BP. we added echo also -considerin bacteremia /cardiac status insetting of ascitis Hyponatremia:? Chronic possibly related to liver disease SAUL improving bacteremia : bacteremia: UA and chest x-ray seems negative,on admission Abdominal ultrasound shows large ascites no sbp on paracentesis, paracentesis 7.8 liter fluid removed 2days back. Blood cultures are growing Gram-positive cocci and Gram-negative rods(?contaminant)-grew Staph aureus coagulase negative, gram-negative rand, continue IV antibiotics, vanco trough today 15.5 d/w Id: Possible coagulase negative Staph is contamination, so vanco was discontinued, continue ceftriaxone until ID follow-up. SAUL: possible hepatorenal Creatinine improvin Likely secondary to dehydration, ascites given Albumin Hold diuretics Monitor labs Nephrology consult pending. Skin lesions and excoriations General surgery consult pending. hypervolemic hyponatremia in the setting of cirrhosis Fluid restriction Monitor Hyperkalemia: Improved with Lokelma Hold spironolactone Monitor Protein calorie malnutrition Nutrition consult Lactic acidosis Chronic, at baseline Secondary to liver disease, not sepsis Non insulin-dependent DM2 Hold metformin SSI foot wound care : has left foot -big superficial blister, muliple skin excoriations : wound care. Ongoing hospitalization need: SAUL, hyponatremia, bacteremia: Needs IV antibiotics, lactulose, electrolytic monitoring as well as renal function and vanco trough monitoring. Time Spent With Patient Time: Total time managing care of this patient today ____ minutes. Quality Stroke Does the patient have a stroke diagnosis?: No VTE Prior VTE?: No VTE Risk Level:: Medical - moderate - high VTE Device Contraindication: Treatment Not Indicated VTE Drug Contraindication: N/A - Med Ordered
[2022-04-06 09:01] LABS: Sodium 129 mmol/L (135-145)
--- NOTE | 2022-04-06 09:34 | PM.PNNEP ---
Subjective Subjective Date of Service: 04/06/22 Interval history: seen and examined discussed with medical attending no complaints Physical Exam Vital Signs: Vital Signs: Last Vital Signs Temp 98.0 F 04/06/22 08:00 Pulse 112 H 04/06/22 08:00 Resp 18 04/06/22 08:00 BP 104/58 L 04/06/22 08:00 Pulse Ox 100 04/06/22 08:00 O2 Del Method 04/06/22 08:00 BMI result Body Mass Index 29.8 Const: General: no acute distress HEENT: Head: Yes normocephalic and Yes atraumatic Neck: Neck: Yes supple Resp: Auscultation: diminished lung sounds Cardio: Heart sounds: S1 normal heart sound present and S2 normal heart sound present GI: Palpation (GI): nontender and Ascites present Extrem: General: Yes edema Objective Data Labs 04/04/22 05:44 04/06/22 05:41 Labs: Laboratory Results - last 24 hr 04/04/22 04/05/22 04/05/22 15:20 11:43 16:39 Sodium Creatinine Estim Creat Clear Calc Estimated GFR POC Glucose 137 H 180 H Peritoneal Albumin 0.4 Random Vancomycin 04/05/22 04/06/22 04/06/22 19:49 05:41 05:41 Sodium 129 L Creatinine 1.04 Estim Creat Clear Calc 81.5 Estimated GFR > 60 POC Glucose 177 H Peritoneal Albumin Random Vancomycin 15.5 04/06/22 07:32 Sodium Creatinine Estim Creat Clear Calc Estimated GFR POC Glucose 150 H Peritoneal Albumin Random Vancomycin Microbiology Microbiology Results: Microbiology 04/04/22 07:20 Blood - Venous Blood Culture - Preliminary No growth after 48 hours. 04/04/22 07:20 Blood - Venous Blood Culture - Preliminary No growth after 48 hours. 04/04/22 15:20 Abdominal Fluid Gram Stain - Final 04/04/22 15:20 Abdominal Fluid Routine Culture - Preliminary No growth to date. 04/04/22 15:20 Abdominal Fluid Anaerobic Culture - Preliminary No growth to date. 04/03/22 12:27 Blood - Venous Blood Culture - Preliminary No growth after 48 hours. 04/03/22 12:27 Blood - Venous Blood Culture - Preliminary Gram negative rand Gram positive cocci Procedures Date of Service Date of Service: 04/06/22 Assessment & Plan Assessment and plan (1) SAUL (acute kidney injury): Status: Acute (2) Hyponatremia: Status: Acute (3) Alcoholic cirrhosis: Status: Acute Plan Sna and Scr better SAUL due to pre renal state in the setting of ETOH liver cirrhosis r/o hepatorenal syndrome type I but less likely hypervolemic hyponatremia in the setting of hepatic physiology underlying type 2 HRS REC furosemide 20 mg po daily spironmolactone 25 mg po daily (titrate to home dose if tolerating) fluid restriction discontinue albumin no urea midodrine for low BP follow kidney function and electrolytes Time Spent With Patient Time: Total time managing care of this patient today ____ minutes. Progress Note: Quality Stroke Does the patient have a stroke diagnosis?: No
[2022-04-06] MEDS: Albumin Human 25 % 50 ML 100 ML IV (09:44)
[2022-04-06 11:14] LABS: Glucose, Whole Blood 173 mg/dL (60-115)
[2022-04-06 11:26] VITALS: BP 102/50; PULSE 115; RESP 17; TEMP 36.9; O2SAT 100
[2022-04-06] MEDS: Spironolactone 25 MG TABLET PO (11:45)
[2022-04-06] MEDS: Insulin Lispro 100 UNIT/ML 3 ML VIAL SUBCUT ×3 (11:46→20:47)
[2022-04-06] MEDS: vancomycin HCL 1,250 MG in 0.9 % Sodium Chloride 250 ML 166.67 MG IV (11:46)
[2022-04-06 14:11] VITALS: BP 102/50
[2022-04-06] MEDS: Lactulose 20 GM/30 ML SOLUTION PO (15:08)
[2022-04-06 15:34] VITALS: BMI 29.8
--- NOTE | 2022-04-06 15:39 | MHC.CLN ---
RE: CONSULT PT WITH 12% SIGNIFICANT WT LOSS X 6MONTHS WITH ASCITES AND CHRONIC POOR PO INTAKE PO INTAKE 25-50% DIET RX: 2000DM 1500ML FLUID RESTRICTION-APPROPRIATE RECOMMEND ADDING ENSURE MAX BID TO INCREASE PO PROTEIN PT WITH FRAGILE SKIN SUPP TO PROVIDE 300KCALS, 60G PROTEIN MONITOR PO INTAKE CLOSELY SEE ALSO FULL CLINICAL NUTRITION ASSESSMENT
[2022-04-06 15:51] LABS: Glucose, Whole Blood 160 mg/dL (60-115)
[2022-04-06 15:53] VITALS: BP 93/52; PULSE 110; RESP 17; TEMP 36.2; O2SAT 98
[2022-04-06] MEDS: Enoxaparin Sodium 40 MG/0.4 ML SYRINGE SUBCUT (18:27)
[2022-04-06 19:00] VITALS: BP 116/67; PULSE 115; RESP 16; TEMP 36.4; O2SAT 98
[2022-04-06 19:49] LABS: Glucose, Whole Blood 159 mg/dL (60-115)
[2022-04-07 03:00] VITALS: BP 104/55; PULSE 114; RESP 17; TEMP 36.5; O2SAT 100
[2022-04-07] MEDS: Omeprazole 20 MG CAPSULE.DR PO (06:35)
[2022-04-07 06:57] LABS: Hematocrit 24.9 % (42.0-52.0); Hemoglobin 8.7 g/dl (14.0-18.0); Mean Corpuscular HGB Conc 34.9 g/dl (31.0-36.0); Mean Corpuscular Hemoglobin 35.2 pg (27.0-33.0); Mean Corpuscular Volume 100.8 fL (80.0-98.0); Mean Platelet Volume 9.8 fL (9.4-12.4); Red Blood Count 2.47 X10*6/uL (4.60-5.80); Red Cell Distribution Width 16.4 % (11.0-16.0); White Blood Count 6.1 X10*3/uL (4.8-10.8)
[2022-04-07 07:00] VITALS: BP 91/54; PULSE 109; RESP 18; TEMP 36.9; O2SAT 100
[2022-04-07 07:07] LABS: Platelet Count 68 X10*3/uL (160-400)
[2022-04-07 07:09] LABS: Anion Gap 12 (12-20); Blood Urea Nitrogen 16 mg/dL (9-16); Calcium 8.7 mg/dL (8.4-10.2); Carbon Dioxide 19 mmol/L (22-29); Chloride 101 mmol/L (96-108); Creatinine Clr Calc Pharmacy 83.9; Creatinine Clr Calc Pharmacy 86.5; Estimated Glomerular Filt Rate > 60; Glucose Random 134 mg/dL (60-115); Potassium 4.3 mmol/L (3.3-5.1); Sodium 128 mmol/L (135-145)
[2022-04-07 07:47] LABS: Glucose, Whole Blood 194 mg/dL (60-115)
[2022-04-07] MEDS: cefTRIAXone sodium 1 GM in 0.9 % Sodium Chloride 50 ML IV (08:17)
[2022-04-07] MEDS: Thiamine HCL 100 MG TABLET PO (08:24)
[2022-04-07] MEDS: Sodium Chloride Tab 1 GM TABLET PO (08:24)
[2022-04-07] MEDS: rifAXIMin 550 MG TABLET PO ×2 (08:24→22:05)
[2022-04-07] MEDS: Lactulose 20 GM/30 ML SOLUTION 30 GM PO ×3 (08:24→22:05)
[2022-04-07] MEDS: Folic Acid 1 MG TABLET PO (08:25)
[2022-04-07] MEDS: 0.9 % Sodium Chloride Flush 3 ML SYRINGE IVFLUSH ×2 (08:25→16:57)
[2022-04-07] MEDS: Insulin Lispro 100 UNIT/ML 3 ML VIAL SUBCUT ×3 (08:25→22:06)
[2022-04-07] MEDS: Magnesium Oxide 400 MG TABLET PO ×2 (08:25→22:05)
--- NOTE | 2022-04-07 10:22 | PM.PNNEP ---
Subjective Subjective Date of Service: 04/07/22 Interval history: seen and examined discussed with medical attending no complaints Physical Exam Vital Signs: Vital Signs: Last Vital Signs Temp 98.4 F 04/07/22 07:00 Pulse 109 H 04/07/22 07:00 Resp 18 04/07/22 07:00 BP 91/54 L 04/07/22 07:00 Pulse Ox 100 04/07/22 07:00 O2 Del Method 04/07/22 07:00 BMI result Body Mass Index 29.8 Const: General: no acute distress HEENT: Head: Yes normocephalic and Yes atraumatic Neck: Neck: Yes supple Resp: Auscultation: diminished lung sounds Cardio: Heart sounds: S1 normal heart sound present and S2 normal heart sound present GI: Palpation (GI): nontender and Ascites present Extrem: General: Yes edema Objective Data Labs 04/07/22 05:35 04/07/22 05:35 Labs: Laboratory Results - last 24 hr 04/06/22 04/06/22 04/06/22 11:07 15:32 19:32 WBC RBC Hgb Hct MCV MCH MCHC RDW Plt Count MPV Absolute Nucleated RBC Nucleated RBC % (auto) Sodium Potassium Chloride Carbon Dioxide Anion Gap BUN Creatinine Estim Creat Clear Calc Estimated GFR POC Glucose 173 H 160 H 159 H Random Glucose Calcium 04/07/22 04/07/22 04/07/22 05:35 05:35 05:35 WBC 6.1 RBC 2.47 L Hgb 8.7 L Hct 24.9 L MCV 100.8 H MCH 35.2 H MCHC 34.9 RDW 16.4 H Plt Count 68 L D MPV 9.8 Absolute Nucleated RBC 0.000 Nucleated RBC % (auto) 0.0 Sodium 128 L Potassium 4.3 Chloride 101 Carbon Dioxide 19 L Anion Gap 12 BUN 16 Creatinine 0.98 1.01 Estim Creat Clear Calc 86.5 83.9 Estimated GFR > 60 > 60 POC Glucose Random Glucose 134 H Calcium 8.7 D 04/07/22 07:34 WBC RBC Hgb Hct MCV MCH MCHC RDW Plt Count MPV Absolute Nucleated RBC Nucleated RBC % (auto) Sodium Potassium Chloride Carbon Dioxide Anion Gap BUN Creatinine Estim Creat Clear Calc Estimated GFR POC Glucose 194 H Random Glucose Calcium Microbiology Microbiology Results: Microbiology 04/04/22 15:20 Abdominal Fluid Gram Stain - Final 04/04/22 15:20 Abdominal Fluid Routine Culture - Final No growth after 2 days 04/04/22 15:20 Abdominal Fluid Anaerobic Culture - Preliminary No growth to date. 04/03/22 12:27 Blood - Venous Blood Culture - Preliminary Gram negative rand Coag negative Staphylococcus 04/04/22 07:20 Blood - Venous Blood Culture - Preliminary No growth after 48 hours. 04/04/22 07:20 Blood - Venous Blood Culture - Preliminary No growth after 48 hours. 04/03/22 12:27 Blood - Venous Blood Culture - Preliminary No growth after 48 hours. Procedures Date of Service Date of Service: 04/07/22 Assessment & Plan Assessment and plan (1) SAUL (acute kidney injury): Status: Acute (2) Acute hyponatremia: Status: Acute Plan Sna and Scr better SAUL due to pre renal state in the setting of ETOH liver cirrhosis r/o hepatorenal syndrome type I but less likely hypervolemic hyponatremia in the setting of hepatic physiology underlying type 2 HRS REC furosemide 20 mg po daily spironolactone 25 mg po daily (titrate to home dose if tolerating) fluid restriction discontinue albumin no urea midodrine for low BP follow kidney function and electrolytes Time Spent With Patient Time: Total time managing care of this patient today ____ minutes. Progress Note: Quality Stroke Does the patient have a stroke diagnosis?: No
[2022-04-07 10:26] LABS: Vancomycin Random 14.2 mcg/mL (15-20)
[2022-04-07 11:00] VITALS: BP 101/61; PULSE 110; RESP 18; TEMP 36.5; O2SAT 99
[2022-04-07 11:42] LABS: Glucose, Whole Blood 281 mg/dL (60-115)
[2022-04-07 14:17] VITALS: BP 135/70; PULSE 86; RESP 18; TEMP 37.2; O2SAT 99
--- NOTE | 2022-04-07 15:22 | P.PNIM_ITS ---
Subjective Subjective Date of Service: 04/07/22 Interval History: Toxic metabolic encephalopathy Review of Systems Mental status is improving .? ? unlcear if had any bm's last night Had paracentesis 2 days back. boderline bp. Denies any fever chills or abdominal pain Physical Exam Vital Signs: Vital Signs: Last Vital Signs Temp 99.0 F 04/07/22 14:17 Pulse 86 04/07/22 14:17 Resp 18 04/07/22 14:17 BP 135/70 04/07/22 14:17 Pulse Ox 99 04/07/22 14:17 O2 Del Method 04/07/22 14:17 BMI result Body Mass Index 29.8 Objective Data Active Medications Dextrose (Dextrose 50 % 25 Gm/50 Ml Syringe) 25 gm IVPUSH Q15M PRN; Protocol PRN Reason: per Hypoglycemia Standing Ord. Enoxaparin Sodium (Enoxaparin Sodium 40 Mg/0.4 Ml Syringe) 40 mg SUBCUT Q24H [facility] Last Admin: 04/06/22 18:27 Dose: 40 mg Documented By: JOSE LUIS Folic Acid (Folic Acid 1 Mg Tablet) 1 mg PO DAILY [facility] Last Admin: 04/07/22 08:25 Dose: 1 mg Documented By: JOSE LUIS Furosemide (Furosemide 20 Mg Tablet) 20 mg PO DAILY [facility]; Protocol Last Admin: 04/07/22 08:28 Dose: Not Given Documented By: JOSE LUIS Non-Admin Reason: BP 91/54-MD held Glucose (Glucose Gel 15 Gm Gel..Gram.) 15 gm PO Q15M PRN; Protocol PRN Reason: per Hypoglycemia Standing Ord. Ceftriaxone Sodium 1 gm/ (Sodium Chloride) 50 mls @ 100 mls/hr IV Q24H [facility] Last Infusion: 04/07/22 08:46 Dose: 0 mls/hr Documented By: JOSE LUIS Insulin Human Lispro (Insulin Lispro 100 Unit/Ml 3 Ml Vial) 0 unit SUBCUT QIDACHS [facility]; Protocol Last Admin: 04/07/22 11:52 Dose: 6 unit Documented By: JOSE LUIS Lactulose (Lactulose 20 Gm/30 Ml Solution) 30 gm PO TID [facility] Last Admin: 04/07/22 08:24 Dose: 30 gm Documented By: JOSE LUIS Magnesium Oxide (Magnesium Oxide 400 Mg Tablet) 400 mg PO BID [facility] Last Admin: 04/07/22 08:25 Dose: 400 mg Documented By: JOSE LUIS Omeprazole (Omeprazole 20 Mg Capsule.) 20 mg PO DAILY@0630 [facility] Last Admin: 04/07/22 06:35 Dose: 20 mg Documented By: SUSY Ondansetron HCl (Ondansetron Hcl 4 Mg/2 Ml Vial) 4 mg IVPUSH Q8H PRN PRN Reason: Nausea and Vomiting Pharmacy Consult (Consult Rx Perform Med Rec) 1 each MISCELLANE ONCE PRN PRN Reason: Consult order Rifaximin (Rifaximin 550 Mg Tablet) 550 mg PO BID [facility] Last Admin: 04/07/22 08:24 Dose: 550 mg Documented By: JOSE LUIS Sodium Chloride (0.9 % Sodium Chloride Flush 3 Ml Syringe) 3 ml IVFLUSH QSHIFT [facility] Last Admin: 04/07/22 08:25 Dose: 3 ml Documented By: JOSE LUIS Sodium Chloride (Sodium Chloride Tab 1 Gm Tablet) 1 gm PO DAILY [facility] Last Admin: 04/07/22 08:24 Dose: 1 gm Documented By: JOSE LUIS Spironolactone (Spironolactone 25 Mg Tablet) 25 mg PO DAILY [facility]; Protocol Last Admin: 04/07/22 08:28 Dose: Not Given Documented By: JOSE LUIS Non-Admin Reason: BP 91/54-MD held Thiamine HCl (Thiamine Hcl 100 Mg Tablet) 100 mg PO DAILY [facility] Last Admin: 04/07/22 08:24 Dose: 100 mg Documented By: JOSE LUIS Labs 04/07/22 05:35 04/07/22 05:35 Labs: Laboratory Results - last 24 hr 04/06/22 04/06/22 04/07/22 15:32 19:32 05:35 MCV 100.8 H MCH 35.2 H MCHC 34.9 RDW 16.4 H Plt Count 68 L D MPV 9.8 Absolute Nucleated RBC 0.000 Nucleated RBC % (auto) 0.0 Anion Gap Estim Creat Clear Calc Estimated GFR POC Glucose 160 H 159 H Random Glucose Calcium Random Vancomycin 04/07/22 04/07/22 04/07/22 05:35 05:35 07:34 MCV MCH MCHC RDW Plt Count MPV Absolute Nucleated RBC Nucleated RBC % (auto) Anion Gap 12 Estim Creat Clear Calc 86.5 83.9 Estimated GFR > 60 > 60 POC Glucose 194 H Random Glucose 134 H Calcium 8.7 D Random Vancomycin 04/07/22 04/07/22 10:01 11:33 MCV MCH MCHC RDW Plt Count MPV Absolute Nucleated RBC Nucleated RBC % (auto) Anion Gap Estim Creat Clear Calc Estimated GFR POC Glucose 281 H Random Glucose Calcium Random Vancomycin 14.2 L Microbiology Microbiology Results: Microbiology 04/03/22 12:27 Blood Culture - Final Blood - Venous Acinetobacter baumannii Coag negative Staphylococcus 04/04/22 15:20 Gram Stain - Final Abdominal Fluid Routine Culture - Final No growth after 2 days Anaerobic Culture - Preliminary No growth to date. Assessment and Plan (1) Gram-negative bacteremia: Status: Acute (2) SAUL (acute kidney injury): Status: Acute (3) Alcoholic cirrhosis: Status: Acute (4) Altered mental status: Status: Acute (5) Toxic metabolic encephalopathy: Status: Acute (6) Acute hyponatremia: Status: Acute Plan 56-year-old male with a PMH significant for?ETOH cirrhosis (reports over 1 year sober), ascites, alcohol use disorder, and [id number] DM 2 who presents to the ED after VNA found patient had a covered in stool and urine.? Patient be admitted to the hospital for treatment of hepatic encephalopathy in setting of symptomatic ascites due to alcoholic cirrhosis. Toxic metabolic encephalopathy (Hepatic) encephalopathy, he is showing improving but not fully lucid yet -lactulose Ascietes s/p paracentesis, abdomen is no longer tense Hyponatremia:chronic and appear stable SAUL, concern for HRS, but Cr now normal bacteremia : Coag neg stap and Acinotobacter, likely contramination he has been on Ceftriaxone and will discuss with ID if can be discontinued Skin lesions and excoriations General surgery consult pending. hypervolemic hyponatremia in the setting of cirrhosis Fluid restriction Monitor Hyperkalemia: resolved with Lokelma Hold spironolactone Monitor Protein calorie malnutrition Supplement Lactic acidosis Chronic, at baseline Secondary to liver disease, not sepsis Non insulin-dependent DM2 Hold metformin SSI foot wound care : has left foot -big superficial blister, muliple skin excoriations : wound care. Ongoing hospitalization need: SAUL, hyponatremia, bacteremia: Needs IV antibiotics, lactulose, electrolytic monitoring as well as renal function and vanco trough monitoring. Time Spent With Patient Time: Total time managing care of this patient today ____ minutes. Quality Stroke Does the patient have a stroke diagnosis?: No VTE Prior VTE?: No VTE Risk Level:: Medical - moderate - high VTE Device Contraindication: Treatment Not Indicated VTE Drug Contraindication: N/A - Med Ordered
[2022-04-07 16:31] LABS: Glucose, Whole Blood 144 mg/dL (60-115)
[2022-04-07] MEDS: Enoxaparin Sodium 40 MG/0.4 ML SYRINGE SUBCUT (16:57)
[2022-04-07 19:08] VITALS: BP 109/62; PULSE 116; RESP 20; TEMP 36.6; O2SAT 100
[2022-04-07 21:16] LABS: Glucose, Whole Blood 222 mg/dL (60-115)
[2022-04-07 23:00] VITALS: RESP 17; RESP 18
[2022-04-08] MEDS: 0.9 % Sodium Chloride Flush 3 ML SYRINGE IVFLUSH ×3 (02:15→16:56)
[2022-04-08 03:00] VITALS: BP 109/66; PULSE 114; RESP 18; TEMP 36.3; O2SAT 99
[2022-04-08] MEDS: Omeprazole 20 MG CAPSULE.DR PO (05:15)
[2022-04-08 07:00] VITALS: BP 110/67; PULSE 108; RESP 17; TEMP 37.4; O2SAT 99
[2022-04-08 07:10] LABS: Creatinine Clr Calc Pharmacy 88.3; Estimated Glomerular Filt Rate > 60
[2022-04-08 07:50] LABS: Glucose, Whole Blood 145 mg/dL (60-115)
[2022-04-08 08:25] LABS: Anion Gap 11 (12-20); Carbon Dioxide 21 mmol/L (22-29); Chloride 99 mmol/L (96-108); Potassium 4.6 mmol/L (3.3-5.1); Sodium 126 mmol/L (135-145)
[2022-04-08] MEDS: cefTRIAXone sodium 1 GM in 0.9 % Sodium Chloride 50 ML IV (09:32)
[2022-04-08] MEDS: Sodium Chloride Tab 1 GM TABLET PO (09:34)
[2022-04-08] MEDS: rifAXIMin 550 MG TABLET PO (09:34)
[2022-04-08] MEDS: Spironolactone 25 MG TABLET PO (09:34)
[2022-04-08] MEDS: Furosemide 20 MG TABLET PO (09:34)
[2022-04-08] MEDS: Folic Acid 1 MG TABLET PO (09:34)
[2022-04-08] MEDS: Magnesium Oxide 400 MG TABLET PO (09:34)
[2022-04-08] MEDS: Thiamine HCL 100 MG TABLET PO (09:34)
--- NOTE | 2022-04-08 10:35 | PM.PNNEP ---
Subjective Subjective Date of Service: 04/08/22 Interval history: Events noted Toxic metabolic encephalopathy Physical Exam Vital Signs: Vital Signs: Last Vital Signs Temp 99.3 F 04/08/22 07:00 Pulse 108 H 04/08/22 07:00 Resp 17 04/08/22 07:00 BP 110/67 04/08/22 07:00 Pulse Ox 99 04/08/22 07:00 O2 Del Method 04/08/22 07:00 BMI result Body Mass Index 29.8 Const: General: no acute distress HEENT: Head: Yes normocephalic and Yes atraumatic Neck: Neck: Yes supple Resp: Auscultation: diminished lung sounds Cardio: Heart sounds: S1 normal heart sound present and S2 normal heart sound present GI: Palpation (GI): nontender and Ascites present Extrem: General: Yes edema Objective Data Labs 04/07/22 05:35 04/08/22 05:39 Labs: Laboratory Results - last 24 hr 04/07/22 04/07/22 04/07/22 11:33 16:26 21:03 Sodium Potassium Chloride Carbon Dioxide Anion Gap Creatinine Estim Creat Clear Calc Estimated GFR POC Glucose 281 H 144 H 222 H 04/08/22 04/08/22 05:39 07:36 Sodium 126 L Potassium 4.6 Chloride 99 Carbon Dioxide 21 L Anion Gap 11 L Creatinine 0.96 Estim Creat Clear Calc 88.3 Estimated GFR > 60 POC Glucose 145 H Microbiology Microbiology Results: Microbiology 04/04/22 15:20 Abdominal Fluid Gram Stain - Final 04/04/22 15:20 Abdominal Fluid Routine Culture - Final No growth after 2 days 04/04/22 15:20 Abdominal Fluid Anaerobic Culture - Preliminary No growth to date. 04/03/22 12:27 Blood - Venous Blood Culture - Final Acinetobacter baumannii Coag negative Staphylococcus 04/04/22 07:20 Blood - Venous Blood Culture - Preliminary No growth after 48 hours. 04/04/22 07:20 Blood - Venous Blood Culture - Preliminary No growth after 48 hours. 04/03/22 12:27 Blood - Venous Blood Culture - Preliminary No growth after 48 hours. Procedures Date of Service Date of Service: 04/08/22 Assessment & Plan Assessment and plan (1) SAUL (acute kidney injury): Status: Acute (2) Acute hyponatremia: Status: Acute Plan SAUL due to pre renal state in the setting of ETOH liver cirrhosis r/o hepatorenal syndrome type I but less likely hypervolemic hyponatremia in the setting of hepatic physiology underlying type 2 HRS REC furosemide 20 mg po daily spironolactone 25 mg po daily (titrate to home dose if tolerating) Hypotonic fluid restriction discontinue albumin no urea midodrine for low BP follow kidney function and electrolytes Time Spent With Patient Time: Total time managing care of this patient today ____ minutes. Progress Note: Quality Stroke Does the patient have a stroke diagnosis?: No
--- NOTE | 2022-04-08 10:41 | HO.PM.IMPN ---
Subjective Subjective Date of Service: 04/08/22 Interval History: Toxic metabolic encephalopathy Not entirely lucid, onriented to self and place Physical Exam Vital Signs: Vital Signs: Last Vital Signs Temp 99.3 F 04/08/22 07:00 Pulse 108 H 04/08/22 07:00 Resp 17 04/08/22 07:00 BP 110/67 04/08/22 07:00 Pulse Ox 99 04/08/22 07:00 O2 Del Method 04/08/22 07:00 BMI result Body Mass Index 29.8 Const: Other: General: AO X 2, no acute distress Resp: CTA bilateral CVS: S1,S2,RRR GI: +BS, NT, no distention Skin: No rash Neuro: motor grossly intact Psych: appropriate affect Objective Data Active Medications Dextrose (Dextrose 50 % 25 Gm/50 Ml Syringe) 25 gm IVPUSH Q15M PRN; Protocol PRN Reason: per Hypoglycemia Standing Ord. Enoxaparin Sodium (Enoxaparin Sodium 40 Mg/0.4 Ml Syringe) 40 mg SUBCUT Q24H [facility] Last Admin: 04/07/22 16:57 Dose: 40 mg Documented By: JOSE LUIS Folic Acid (Folic Acid 1 Mg Tablet) 1 mg PO DAILY [facility] Last Admin: 04/08/22 09:34 Dose: 1 mg Documented By: DULCE Furosemide (Furosemide 20 Mg Tablet) 20 mg PO DAILY [facility]; Protocol Last Admin: 04/08/22 09:34 Dose: 20 mg Documented By: DULCE Glucose (Glucose Gel 15 Gm Gel..Gram.) 15 gm PO Q15M PRN; Protocol PRN Reason: per Hypoglycemia Standing Ord. Ceftriaxone Sodium 1 gm/ (Sodium Chloride) 50 mls @ 100 mls/hr IV Q24H [facility] Last Admin: 04/08/22 09:32 Dose: 100 mls/hr Documented By: DULCE Insulin Human Lispro (Insulin Lispro 100 Unit/Ml 3 Ml Vial) 0 unit SUBCUT QIDACHS [facility]; Protocol Last Admin: 04/08/22 09:33 Dose: Not Given Documented By: DULCE Non-Admin Reason: No Insulin Coverage Lactulose (Lactulose 20 Gm/30 Ml Solution) 30 gm PO TID [facility] Last Admin: 04/08/22 09:44 Dose: Not Given Documented By: DULCE Non-Admin Reason: Patient Refused Magnesium Oxide (Magnesium Oxide 400 Mg Tablet) 400 mg PO BID [facility] Last Admin: 04/08/22 09:34 Dose: 400 mg Documented By: DULCE Omeprazole (Omeprazole 20 Mg Capsule.) 20 mg PO DAILY@0630 [facility] Last Admin: 04/08/22 05:15 Dose: 20 mg Documented By: NOLVIAORALNagi Ondansetron HCl (Ondansetron Hcl 4 Mg/2 Ml Vial) 4 mg IVPUSH Q8H PRN PRN Reason: Nausea and Vomiting Pharmacy Consult (Consult Rx Perform Med Rec) 1 each MISCELLANE ONCE PRN PRN Reason: Consult order Rifaximin (Rifaximin 550 Mg Tablet) 550 mg PO BID [facility] Last Admin: 04/08/22 09:34 Dose: 550 mg Documented By: DULCE Sodium Chloride (0.9 % Sodium Chloride Flush 3 Ml Syringe) 3 ml IVFLUSH QSHIFT [facility] Last Admin: 04/08/22 09:33 Dose: 3 ml Documented By: DULCE Sodium Chloride (Sodium Chloride Tab 1 Gm Tablet) 1 gm PO DAILY [facility] Last Admin: 04/08/22 09:34 Dose: 1 gm Documented By: DULCE Spironolactone (Spironolactone 25 Mg Tablet) 25 mg PO DAILY [facility]; Protocol Last Admin: 04/08/22 09:34 Dose: 25 mg Documented By: DULCE Thiamine HCl (Thiamine Hcl 100 Mg Tablet) 100 mg PO DAILY [facility] Last Admin: 04/08/22 09:34 Dose: 100 mg Documented By: DULCE Labs 04/07/22 05:35 04/08/22 05:39 Labs: Laboratory Results - last 24 hr 04/07/22 04/07/22 04/07/22 11:33 16:26 21:03 Anion Gap Estim Creat Clear Calc Estimated GFR POC Glucose 281 H 144 H 222 H 04/08/22 04/08/22 05:39 07:36 Anion Gap 11 L Estim Creat Clear Calc 88.3 Estimated GFR > 60 POC Glucose 145 H Microbiology Microbiology Results: Microbiology 04/04/22 15:20 Gram Stain - Final Abdominal Fluid Routine Culture - Final No growth after 2 days Anaerobic Culture - Preliminary No growth to date. 04/03/22 12:27 Blood Culture - Final Blood - Venous Acinetobacter baumannii Coag negative Staphylococcus Assessment and Plan (1) Gram-negative bacteremia: Status: Acute (2) SAUL (acute kidney injury): Status: Acute (3) Alcoholic cirrhosis: Status: Acute (4) Altered mental status: Status: Acute (5) Toxic metabolic encephalopathy: Status: Acute (6) Acute hyponatremia: Status: Acute Plan 56-year-old male with a PMH significant for?ETOH cirrhosis (reports over 1 year sober), ascites, alcohol use disorder, and [id number] DM 2 who presents to the ED after [facility]NA found patient had a covered in stool and urine.? Patient be admitted to the hospital for treatment of hepatic encephalopathy in setting of symptomatic ascites due to alcoholic cirrhosis. Toxic metabolic encephalopathy (Hepatic) encephalopathy, he is showing improving but not fully lucid yet -continue lactulose, follow up on ammonia Ascietes s/p paracentesis, abdomen is no longer tense Hyponatremia:chronic and appear stable around 125 to 129 SAUL, concern for HRS, but Cr now normal bacteremia : Coag neg stap and Acinotobacter, likely contramination ID to decides if still need Abx Skin lesions and excoriations General surgery consult pending. hypervolemic hyponatremia in the setting of cirrhosis Fluid restriction Monitor Hyperkalemia: resolved with Lokelma Hold spironolactone Monitor Protein calorie malnutrition Supplement Lactic acidosis Chronic, at baseline Secondary to liver disease, not sepsis Non insulin-dependent DM2 Hold metformin SSI foot wound care : has left foot -big superficial blister, muliple skin excoriations : wound care. Ongoing hospitalization need: SAUL, hyponatremia, bacteremia: Needs IV antibiotics, lactulose, electrolytic monitoring as well as renal function and vanco trough monitoring. Time Spent With Patient Time: Total time managing care of this patient today ____ minutes. Quality Stroke Does the patient have a stroke diagnosis?: No VTE Prior VTE?: No VTE Risk Level:: Medical - moderate - high VTE Device Contraindication: Treatment Not Indicated VTE Drug Contraindication: N/A - Med Ordered
[2022-04-08 11:00] VITALS: BP 104/65; PULSE 104; RESP 17; TEMP 37; O2SAT 99
--- NOTE | 2022-04-08 11:26 | MHC.CLN ---
F/U PO INTAKE 50-75% DIET RX: 2000DM 1500ML FLUID RESTRICTION-APPROPRIATE PT RECEIVING ENSURE MAX BID TO INCREASE PO PROTEIN PT WITH FRAGILE SKIN SUPP TO PROVIDE 300KCALS, 60G PROTEIN, 600ML FREE WATER (FOR FR) WITH 100% ACCEPTANCE MONITOR PO INTAKE CLOSELY
[2022-04-08 11:39] VITALS: BP 110/67; PULSE 108; O2SAT 99
[2022-04-08 11:56] LABS: Glucose, Whole Blood 175 mg/dL (60-115)
[2022-04-08] MEDS: Insulin Lispro 100 UNIT/ML 3 ML VIAL SUBCUT ×2 (12:12→16:54)
--- NOTE | 2022-04-08 12:33 | MHC.CM.PN ---
Addendum entered by Sarah Pope RN 04/08/22 15:02: CALL BACK TO [facility], WHO IS AWARE THAT PATIENT IS POTENTIALLY LEAVING AMA. WHEN ASKED HOW PATIENT WILL BE TRANSPORTED, SHE ASKS FOR BLS. IT IS THE ONLY WAY TO GET HIM HOME [facility] TO BE ARRANGED RN AWARE OF PLAN Original Note: PATIENT'S SIGNIFICANT OTHER, [facility] ([phone]) ASKING FOR POTENTIAL DC PER ROUNDS, PATIENT MAY BE ABLE TO DC Wednesday04/09/22 AK[facility] STATES THAT SHE WILL CALL THE [facility]NA SERVICE AND INFORM THEM OF HIS RETURN ONCE SHE HAS A DC TIME. PATIENT DOES NOT WANT SHORT TERM REHAB
[2022-04-08 15:00] VITALS: BP 94/51; PULSE 102; RESP 16; TEMP 36.6; O2SAT 99
--- NOTE | 2022-04-08 15:28 | MHC.CM.PN ---
patient is dc home via [facility] for 1800 today RN, patient, and unit aware
--- NOTE | 2022-04-08 16:10 | MHC.CM.PN ---
T/W MET WITH PATIENT TO INFORM HIM OF AN ANTICIPATED 1800 TRANSFER VIA AMBULANCE. PATIENT BEGAN TO SWEAR AT THIS [employer]IPY[employer] HELPER ABOUT THE TIME OF TRANSFER AND TRYING TO.... KEEP ME HERE. T/W REMINDED PATIENT THAT STAFF IS TRYING TO PROVIDE CARE FOR HIM BUT THAT HIS VERBAL AGGRESSION IS MAKING IT DIFFICULT. T/W ASKED PATIENT TO STOP BERATING STAFF, IT IS BECOMING DIFFICULT TO BE COMPASSIONATE WHEN ONE SOMEONE TALKS AGGRESSIVELY PATIENT APOLOGIZED AND ASKED FOR ICE CREAM. 2 CHOCOLATES AND ONE VANILLA GIVEN RN AWARE
--- NOTE | 2022-04-08 16:14 | PM.DS ---
DS: Providers Provider Date of Service: 04/08/22 Date of admission: 04/03/22 18:03 Primary care physician: Maren Carvajal MD Consults: 04/03/22 18:07 Consult to Gastroenterology Routine Consulting Provider: Chucky Hutchison Reason for consultation: Ascites Has provider been notified: No Consult to General Surgery Routine Consulting Provider: Irina Wisdom Reason for consultation: Numerous excoriations on abdomen, thigh, right foot Has provider been notified: No Consult to Nephrology Routine Consulting Provider: Kaveh Maya Reason for consultation: SAUL in setting of ascites 04/04/22 08:43 Consult to Infectious Diseases Routine Consulting Provider: Anuradha Son Reason for consultation: bacteremia /gram positive Has provider been notified: No DS: Diagnosis Discharge Diagnosis (1) Gram-negative bacteremia: Status: Acute (2) SAUL (acute kidney injury): Status: Acute (3) Alcoholic cirrhosis: Status: Acute (4) Altered mental status: Status: Acute (5) Toxic metabolic encephalopathy: Status: Acute (6) Acute hyponatremia: Status: Acute DS: Summary Hospital Course Hospital Course: ?Pt is a 56-year-old male with a PMH significant for?ETOH cirrhosis (reports over 1 year sober), ascites, alcohol use disorder, and [id number]-[id number] DM 2 who presents to the ED after VNA found patient had a covered in stool and urine.? Suspects he has not left the couch and 2-3 days.? Patient was found more lethargic than his baseline.? Patient found to be oriented to person and place but not time.? Patient cooperative during interview, but states he came to the ED because he was ?bored? with ?nothing to do?.? Patient has no complaints.? Denies fever, chills, nausea, vomiting.? No chest pain/pressure, palpitations.? Denies shortness of breath, abdominal pains, any difficulties or changes to bowel or bladder habits. In the ED labs were significant for leukocytosis of 11.4, H&H 11.7/33.4 (near baseline), hyponatremia of 127, hyperkalemia of 5.4, creatinine of 1.36 (baseline 0.8) elevated BUN of 32, lactic acid of 4.9, total bilirubin of 4.2, direct bilirubin 1.4, ammonia WNL, and albumin of 2.6. CXR showed no acute cardiopulmonary process seen. CT of head showed no acute intracranial pathology. Pt will be admitted to the hospital for treatment of metabolic encephalopathy in the setting of symptomatic ascites due to alcoholic cirrhosis. Hospital--Patient was admited due to altered mental status and found to have heparitic encephalopathy, hyperkalemia, and hyponatremia. Blood cultures show coag negative staph and Acinetobacter bacteremia. The aford mentioned issues were been addressed and while he has signficiantly improved and more lucid and by his girlfreinds account is at his baseline mental status. His bacteremia and antibitiocs has not yet been fully addressed by ID,,sodium is still low and we are still following and making adjustment as needing. He has elected to leave against medical advise at this lorena. I have advised him against this but he states it is his right he is oriented to self, place , year of day but does voice understading. Nurse and CM have likewise discouraged him from leaving but insistson leaving. Rfaximin has been added to his meds. Aldactone reduced to 25 from 50 because of hyperkalemia that has now resolved. HE IS LEAVING AMA Time Spent with Patient Time attestation: Total time managing care of this patient today ____ minutes. Discharge coordination time: Greater than 30 minutes Quality: Safe Use of Opioids Does Pt have an Active Cancer Diagnosis on the Problem List?: No Quality: Stroke Does the patient have a stroke diagnosis?: No Physical Exam Vital Signs: Vital Signs: Last Vital Signs Temp 98.6 F 04/08/22 11:00 Pulse 108 H 04/08/22 11:39 Resp 17 04/08/22 11:00 BP 110/67 04/08/22 11:39 Pulse Ox 99 04/08/22 11:39 O2 Del Method 04/08/22 11:00 BMI result Body Mass Index 29.8 DS: Data Data Completed and Pending Completed studies during hospitalization [Text1]: Procedures Detoxification Services for Substance Abuse Treatment (08/01/21) Drainage of Peritoneal Cavity, Percutaneous Approach (03/17/22) Labs on day of discharge: Laboratory Results - last 24 hr 04/07/22 04/07/22 04/08/22 16:26 21:03 05:39 Sodium 126 L Potassium 4.6 Chloride 99 Carbon Dioxide 21 L Anion Gap 11 L Creatinine 0.96 Estim Creat Clear Calc 88.3 Estimated GFR > 60 POC Glucose 144 H 222 H 04/08/22 04/08/22 07:36 11:53 Sodium Potassium Chloride Carbon Dioxide Anion Gap Creatinine Estim Creat Clear Calc Estimated GFR POC Glucose 145 H 175 H Preliminary micro results at discharge 04/04/22 15:20 Anaerobic Culture - Preliminary Abdominal Fluid No growth to date. 04/04/22 07:20 Blood Culture - Preliminary Blood - Venous No growth after 48 hours. 04/04/22 07:20 Blood Culture - Preliminary Blood - Venous No growth after 48 hours. Discharge Plan Discharge Anticipated Discharge Date/Time: 04/08/22 16:03 Patient Disposition: Home Health Service Discharge Diagnosis: Hepatic enecphalopathy, Hyponatremia Referrals: Maren Carvajal MD [Primary Care Provider] - 1 Week Discharge Medications: New Xifaxan 550 mg Tablet 550 mg PO BID Qty: 60 0RF spironolactone 25 mg Tablet 25 mg PO DAILY Qty: 30 0RF Protocol: Hold for SBP< HOLD for SBP < : 90 furosemide 20 mg Tablet 20 mg PO DAILY Qty: 30 0RF Protocol: Hold for SBP< HOLD for SBP < : 90 Continued folic acid 1 mg tablet 1 mg PO DAILY Qty: 90 2RF metformin 1,000 mg tablet 1,000 mg PO BID Qty: 60 2RF thiamine HCl (vitamin B1) 100 mg tablet 100 mg PO DAILY Qty: 90 2RF insulin lispro 100 unit/mL Insulin Pen 0 sliding scale dose SUBCUT TIDAC Protocol: Insulin Correction Scale Less than or equal to 110 ---- Give (units): 0 111 to 150 Give (units): 0 151 to 200 Give (units): 2 201 to 250 Give (units): 4 251 to 300 Give (units): 6 301 to 350 Give (units): 8 Greater than 350 Give (units): 10 Call MD if Blood Glucose > : 350 magnesium oxide 400 mg magnesium Tablet 400 mg PO BID omeprazole 20 mg capsule,delayed release(DR/EC) 1 cap PO DAILY lactulose 10 gram/15 mL solution 30 ml PO BID sodium chloride 1,000 mg tablet,soluble 1,000 mg PO DAILY Qty: 30 0RF Discontinued spironolactone [Aldactone] 50 mg tablet 50 mg PO DAILY Qty: 30 0RF furosemide [Lasix] 20 mg tablet 20 mg PO DAILY 30 Days Qty: 30 0RF Discharge Orders: Discharge Order (Routine); Ordered 04/08/22 Ordered By: Darrell You Diet: Advance to usual diet Activity on Discharge: As tolerated Stand Alone Forms: Patient Portal Discharge page Care Plan Goals: recovery from encephlapathy, hyponatremia Health Concerns: cirrhosis of liver hyponatremia hyperkalemia bacteremia Plan of Treatment: You are understand that you are leaving against medical advise and assume full responsibility of your health and anything that may happn to you including please take all your medications as recommended and follow up with your Doctor as soon as possible. Avoid drinking to much water no more that 1500 cc a day avoid alcohol at all cost Assessment: as above
[2022-04-08 16:32] LABS: Glucose, Whole Blood 184 mg/dL (60-115)
[2022-04-08] MEDS: Enoxaparin Sodium 40 MG/0.4 ML SYRINGE SUBCUT (16:56)
== END 2022-04-08 18:49 | disposition left against medical advice (07) | DRG 432 ==
LOC: HO.ED 16:24 → HO.EDOVER 18:10 → HO.S3 18:41 → HO.ICU 04-04 13:21 → HO.S3 04-04 15:54
PROVIDERS: Internal Medicine; Admitting Provider Student in an Organized Health Care Education/Training Program; Emergency Provider Emergency Medicine; PCP Internal Medicine; Visit Provider Internal Medicine
DX: K70.31 Alcoholic cirrhosis of liver with ascites (principal); G92.8 Other toxic encephalopathy; K76.7 Hepatorenal syndrome; E44.0 Moderate protein-calorie malnutrition; E87.1 Hypo-osmolality and hyponatremia; F05 Delirium due to known physiological condition; N17.9 Acute kidney failure, unspecified; E87.22 Chronic metabolic acidosis; E87.5 Hyperkalemia; F10.11 Alcohol abuse, in remission; L98.9 Disorder of the skin and subcutaneous tissue, unspecified; E86.0 Dehydration; E11.42 Type 2 diabetes mellitus with diabetic polyneuropathy; K76.82 Hepatic encephalopathy; E86.1 Hypovolemia; R23.8 Other skin changes; Z68.29 Body mass index [BMI] 29.0-29.9, adult; Z20.822 Contact with and (suspected) exposure to COVID-19; Z91.14 Patient's other noncompliance with medication regimen; Z88.5 Allergy status to narcotic agent; Z88.6 Allergy status to analgesic agent; Z79.4 Long term (current) use of insulin; Z79.84 Long term (current) use of oral hypoglycemic drugs; Z79.899 Other long term (current) drug therapy
CPT/HCPCS: 0241U; 36415; 49083; 70450; 71045; 76700; 80048; 80051; 80076; 80202; 81001; 82042; 82140; 82550; 82565; 82947; 83605; 83615; 83690; 83986; 84157; 84295; 84484; 85025; 85027; 87040; 87070; 87073; 87077; 87147; 87186; 87205; 89051; 93005; 93306; 97162; 99285; J0696; J1650; J3370; J3371; P9047; Q9957

== ENCOUNTER 2022-04-13 17:49 | Inpatient (IN) | payer OTHER, SELFPAY ==
--- NOTE | ~2022-04-13 | XR_ITS ---
EXAMINATION: XR CHEST CLINICAL INFORMATION: ALOC COMPARISON: None TECHNIQUE: Frontal view of the chest was obtained. FINDINGS: There is moderately elevated right hemidiaphragm. The lungs are well-expanded and clear. Heart size and pulmonary vascularity is normal. No gross bony abnormality seen. XR/XR chest 1V IMPRESSION: Moderately elevated right hemidiaphragm. No gross bony abnormality seen.
[2022-04-13 18:08] VITALS: BP 116/76; BP 92/51; PULSE 110; RESP 16; TEMP 37; O2SAT 100; O2SAT 96; BMI 27.6
--- NOTE | 2022-04-13 18:41 | ED_ITS ---
HPI - General Adult General Chief complaint: General Medical Stated complaint: AMS,WEAK,CONF X'S 2 DAYS PER EMS Time Seen by Provider: 04/13/22 18:30 History of Present Illness HPI narrative: This is a 56-year-old male with history of alcoholic cirrhosis, had a recent admission for metabolic encephalopathy, Gram-negative bacteremia, acute kidney injury, hyponatremia, who has been lethargic for a few days. The patient self is a poor historian. He initially says he had a seizure, then later contradicts this and states he definitely did not have a seizure. He denies any headache. He denies chest pain, cough, shortness of breath, abdominal pain, vomiting, diarrhea. He says he just feels weak. Related Data Home Medications Medication Instructions Recorded Confirmed lactulose 10 gram/15 mL oral 30 ml PO BID 03/17/22 04/03/22 solution omeprazole 20 mg capsule,delayed 1 cap PO DAILY 03/17/22 04/03/22 release insulin lispro 100 unit/mL 0 sliding scale dose subcut TIDAC 04/03/22 04/03/22 subcutaneous pen magnesium oxide 400 mg PO BID 04/03/22 04/03/22 Previous Rx's Medication Instructions Recorded folic acid 1 mg tablet 1 mg PO DAILY #90 tabs 03/05/22 metformin 1,000 mg tablet 1,000 mg PO BID #60 tabs 03/05/22 thiamine HCl (vitamin B1) 100 mg 100 mg PO DAILY #90 tabs 03/05/22 tablet sodium chloride 1,000 mg soluble 1,000 mg PO DAILY #30 tabs 03/22/22 tablet furosemide 20 mg tablet 20 mg PO DAILY #30 tabs 04/08/22 rifaximin 550 mg tablet (Xifaxan) 550 mg PO BID #60 tabs 04/08/22 spironolactone 25 mg tablet 25 mg PO DAILY #30 tabs 04/08/22 Allergies Allergy/AdvReac Type Severity Reaction Status Date / Time acetaminophen [From PERCOCET] Allergy Severe AGITATION Verified 04/13/22 18:14 oxycodone [From PERCOCET] Allergy Severe AGITATION Verified 04/13/22 18:14 bee pollen [Bee Stings] Allergy Mild SWELLING Verified 04/13/22 18:14 lorazepam AdvReac Unknown AGITATION Verified 04/13/22 18:14 Review of Systems Review of Systems: As per HPI Yes Unobtainable due to mental status (Limited due to mental status) [facility] Past Medical History Medical History SAUL (acute kidney injury) Alcohol abuse Ascites Diabetes Elevated liver enzymes Hypertension Liver cirrhosis Pressure ulcer Withdrawal seizures Surgical History No pertinent past surgical history Family History Family History Other No family history of coronary artery disease Social History Social History Household Members: Significant Other Housing: House Do you presently have visiting nurse or other home services: Yes Alcohol intake: former Patient Tobacco Use Status: Never used Tobacco Tobacco use type: Smokeless Tobacco Smoked in Last 30 Days: No Second Hand Smoke Exposure: No Use of substances other than those prescribed or required for medical reasons: No Advance Directives: Yes Advance Directives on File: Yes Advance Directives Date on File: 03/18/22 service: Yes Current occupational status: unemployed Physical Exam ED Vital Signs: Vital Signs - 24 hr 04/13/22 18:08 04/13/22 20:20 04/13/22 20:20 Temperature 98.6 F Pulse Rate 110 H 105 H Pulse Rate [Monitor] 105 H Respiratory Rate 16 16 Blood Pressure 92/51 L 105/53 L Pulse Oximetry 100 100 Oxygen Delivery Method Room Air Room Air 04/13/22 21:51 04/13/22 23:20 04/14/22 00:00 Temperature 98.2 F 98.2 F Pulse Rate 107 H 109 H 112 H Pulse Rate [Monitor] Respiratory Rate 18 15 16 Blood Pressure 105/53 L 119/60 119/60 Pulse Oximetry 100 100 100 Oxygen Delivery Method Room Air Room Air Room Air BMI result Body Mass Index 27.6 Const Other: Mildly pale-appearing. Alert, clear speech. General: no acute distress Orientation/consciousness: oriented to person and oriented to place HENSD Head: Yes normal to inspection General nose exam: Normal external nose present Mouth: moist mucous membranes Throat: Yes posterior oropharynx normal, Yes tonsils normal and Yes uvula midline Eyes Eyelids: Yes eyelids normal Conjunctivae: conjunctivae normal Pupils: Equal, round and reactive pupils present Neck Neck: Yes supple Resp Effort & Inspection: normal respiratory effort Auscultation: clear to auscultation bilaterally Cardio Rate: abnormal rate and tachycardic Rhythm: regular rhythm Heart sounds: S1 normal heart sound present, S2 normal heart sound present, no gallops, no murmurs and no rubs GI Inspection: Yes distended (Mild distension, no focal tenderness) Palpation (GI): Soft to palpation and nontender Auscultation: normal bowel sounds Skin General skin exam: other (Warm and dry) Neuro General: oriented to person, oriented to place and CN's II-XI intact bilaterally Cranial nerves: Yes Equal, round and reactive pupils present Extrem General: Yes no pedal edema Psych Affect: normal affect Attitude: cooperative Medications Administered Discontinued Medications Generic Name Dose Route Start Last Admin Trade Name Freq PRN Reason Stop Dose Admin Sodium Chloride 1,000 mls @ 999 mls/hr 04/13/22 18:45 04/13/22 20:31 Ns IV 04/13/22 19:45 Infused .Q1H1M LEO Infusion Medical Decision Making Medical Decision Making [facility] Narrative: Patient with metabolic encephalopathy, recurrent. Patient has known alcoholic cirrhosis and recently had admission for similar presentation. Patient had had positive blood cultures previously. Patient does not appear to have infection at this time, denies any pain, has a negative chest x-ray, negative urinalysis, normal white blood cell count. Patient does have mild dehydration with hypertension tachycardia, elevated BUN. Patient is being given normal saline 1 L IV to start. The nurses had difficulty obtaining IV access on him, and I did eventually place a right antecubital vein ultrasound-guided line. Patient is somewhat ordinary but overall cooperative, appears mildly confused but has clear speech, no neurologic deficit. Patient's ammonia level is elevated. Lactate is mildly elevated at 2.8, though the patient is on metformin, which may explain the elevated lactic acid level. Given the patient is confusion, mild dehydration, borderline hypotension, he warrants admission for IV fluids. Do not suspect spontaneous bacterial peritonitis in this patient given his lack of abdominal pain or tenderness, lack of fever, normal white blood cell count. Lab Data [facility] Lab Attestation statement: I reviewed the patient's lab results. 04/13/22 19:40 04/13/22 19:40 Labs: Lab Results 04/13/22 04/13/2204/13/23 Range/Units 19:40 19:40 20:32 WBC 9.1 (4.8-10.8) X10*3/uL RBC 2.78 L (4.60-5.80) X10*6/uL Hgb 9.8 L (14.0-18.0) g/dl Hct 27.9 L (42.0-52.0) % MCV 100.4 H (80.0-98.0) fL MCH 35.3 H (27.0-33.0) pg MCHC 35.1 (31.0-36.0) g/dl RDW 15.7 (11.0-16.0) % Plt Count 92 L D (160-400) X10*3/uL MPV 9.4 (9.4-12.4) fL Immature Gran % (Auto) 0.7 H (0.0-0.4) % Neut % (Auto) 72.4 (45-73) % Lymph % (Auto) 10.9 L (20-40) % [place] % (Auto) 12.6 H (2-11) % Eos % (Auto) 2.2 (0-4) % Baso % (Auto) 1.2 (0-2) % Lymph # (Auto) 1.0 L (1.2-4.9) X10*3/uL [place] # (Auto) 1.1 (0.1-1.2) X10*3/uL Eos # (Auto) 0.2 (0.0-0.4) X10*3/uL Baso # (Auto) 0.1 (0.0-0.2) X10*3/uL Abs Immat Gran (auto) 0.06 H (0.00-0.03) X10*3/uL Absolute Neuts (auto) 6.6 (2.0-8.3) x10*3/uL Absolute Nucleated RBC 0.000 (0.0-0.012) X10*3/uL Nucleated RBC % (auto) 0.0 (0.0-0.2) /100WBC Sodium 128 L (135-145) mmol/L Potassium 4.5 (3.3-5.1) mmol/L Chloride 101 (96-108) mmol/L Carbon Dioxide 16 L (22-29) mmol/L Anion Gap 16 (12-20) BUN 27 H (9-16) mg/dL Creatinine 0.92 (0.5-1.4) mg/dL Estim Creat Clear Calc 89.6 Estimated GFR > 60 Random Glucose 167 H (60-115) mg/dL Lactic Acid (0.5-2.0) mmol/L Lactic Acid F/U @ 2Hr (0.5-2.0) mmol/L Calcium 8.9 (8.4-10.2) mg/dL Magnesium 1.8 (1.6-2.6) mg/dL Total Bilirubin 3.7 H (0.0-1.0) mg/dL AST 39 H (5-37) U/L ALT 25 (0-40) U/L Alkaline Phosphatase 175 H (39-117) U/L Ammonia 79 H (13-55) umol/L Total Protein 6.4 L (6.5-8.0) g/dL Albumin 3.0 L (3.5-5.0) g/dL Urine Color Urine Appearance Urine pH (5.0-9.0) Ur Specific [place] (1.005-1.025) Urine Protein (Neg-Trace) mg/dL Urine Glucose (UA) (Negative) mg/dL Urine Ketones (Negative) mg/dL Urine Blood (Negative) Urine Nitrite (Negative) Ur Leukocyte Esterase (Negative) Urine RBC (0-2) /HPF Urine WBC (0-5) /HPF Ur Squamous Epith Cells (0-2) /HPF Urine Bacteria (None Seen) Hyaline Casts (0-2) /LPF 04/13/22 04/13/22 04/14/22 Range/Units 20:32 23:09 00:45 WBC (4.8-10.8) X10*3/uL RBC (4.60-5.80) X10*6/uL Hgb (14.0-18.0) g/dl Hct (42.0-52.0) % MCV (80.0-98.0) fL MCH (27.0-33.0) pg MCHC (31.0-36.0) g/dl RDW (11.0-16.0) % Plt Count (160-400) X10*3/uL MPV (9.4-12.4) fL Immature Gran % (Auto) (0.0-0.4) % Neut % (Auto) (45-73) % Lymph % (Auto) (20-40) % [place] % (Auto) (2-11) % Eos % (Auto) (0-4) % Baso % (Auto) (0-2) % Lymph # (Auto) (1.2-4.9) X10*3/uL [place] # (Auto) (0.1-1.2) X10*3/uL Eos # (Auto) (0.0-0.4) X10*3/uL Baso # (Auto) (0.0-0.2) X10*3/uL Abs Immat Gran (auto) (0.00-0.03) X10*3/uL Absolute Neuts (auto) (2.0-8.3) x10*3/uL Absolute Nucleated RBC (0.0-0.012) X10*3/uL Nucleated RBC % (auto) (0.0-0.2) /100WBC Sodium (135-145) mmol/L Potassium (3.3-5.1) mmol/L Chloride (96-108) mmol/L Carbon Dioxide (22-29) mmol/L Anion Gap (12-20) BUN (9-16) mg/dL Creatinine (0.5-1.4) mg/dL Estim Creat Clear Calc Estimated GFR Random Glucose (60-115) mg/dL Lactic Acid 2.7 H* (0.5-2.0) mmol/L Lactic Acid F/U @ 2Hr 2.8 H* (0.5-2.0) mmol/L Calcium (8.4-10.2) mg/dL Magnesium (1.6-2.6) mg/dL Total Bilirubin (0.0-1.0) mg/dL AST (5-37) U/L ALT (0-40) U/L Alkaline Phosphatase (39-117) U/L Ammonia (13-55) umol/L Total Protein (6.5-8.0) g/dL Albumin (3.5-5.0) g/dL Urine Color Dark Yellow Urine Appearance Clear Urine pH 5.5 (5.0-9.0) Ur Specific [place] 1.020 (1.005-1.025) Urine Protein Negative (Neg-Trace) mg/dL Urine Glucose (UA) Negative (Negative) mg/dL Urine Ketones Trace (Negative) mg/dL Urine Blood Negative (Negative) Urine Nitrite Negative (Negative) Ur Leukocyte Esterase Small (1+) H (Negative) Urine RBC 6-10 H (0-2) /HPF Urine WBC 0-5 (0-5) /HPF Ur Squamous Epith Cells 0-2 (0-2) /HPF Urine Bacteria None Seen (None Seen) Hyaline Casts 11-20 (0-2) /LPF Radiology Impression Discussion of test interpretation with radiology: I have reviewed the radiologi st's reading. Radiologist Impression: Chest x-ray: IMPRESSION: Moderately elevated right hemidiaphragm. No gross bony abnormality seen. ? Discharge Plan Discharge Clinical Impression: Non-compliant patient, Hyponatremia, Alcoholic cirrhosis, Toxic metabolic encephalopathy Patient Disposition: Admitted As Inpatient Prescriptions: No Action folic acid 1 mg tablet 1 mg PO DAILY Qty: 90 2RF metformin 1,000 mg tablet 1,000 mg PO BID Qty: 60 2RF thiamine HCl (vitamin B1) 100 mg tablet 100 mg PO DAILY Qty: 90 2RF insulin lispro 100 unit/mL Insulin Pen 0 sliding scale dose SUBCUT TIDAC Protocol: Insulin Correction Scale Less than or equal to 110 ---- Give (units): 0 111 to 150 Give (units): 0 151 to 200 Give (units): 2 201 to 250 Give (units): 4 251 to 300 Give (units): 6 301 to 350 Give (units): 8 Greater than 350 Give (units): 10 Call MD if Blood Glucose > : 350 magnesium oxide 400 mg magnesium Tablet 400 mg PO BID Xifaxan 550 mg Tablet 550 mg PO BID Qty: 60 0RF spironolactone 25 mg Tablet 25 mg PO DAILY Qty: 30 0RF Protocol: Hold for SBP< HOLD for SBP < : 90 furosemide 20 mg Tablet 20 mg PO DAILY Qty: 30 0RF Protocol: Hold for SBP< HOLD for SBP < : 90 omeprazole 20 mg capsule,delayed release(DR/EC) 1 cap PO DAILY lactulose 10 gram/15 mL solution 30 ml PO BID sodium chloride 1,000 mg tablet,soluble 1,000 mg PO DAILY Qty: 30 0RF
[2022-04-13] MEDS: 0.9 % Sodium Chloride 1,000 ML 999 ML IV (19:30)
--- NOTE | 2022-04-13 19:34 | PC.NURSE ---
patient a&ox3, stitcher operator applied, vitals obtained, ivf started per order, tech attempting to draw labs, call zuniga within reach, will continue to monitor.
[2022-04-13 20:00] LABS: Ammonia 79 umol/L (13-55)
[2022-04-13 20:07] LABS: Alanine Aminotransferase 25 U/L (0-40); Alkaline Phosphatase 175 U/L (39-117); Anion Gap 16 (12-20); Aspartate Amino Transferase 39 U/L (5-37); Bilirubin Total 3.7 mg/dL (0.0-1.0); Blood Urea Nitrogen 27 mg/dL (9-16); Calcium 8.9 mg/dL (8.4-10.2); Carbon Dioxide 16 mmol/L (22-29); Chloride 101 mmol/L (96-108); Creatinine Clr Calc Pharmacy 89.6; Estimated Glomerular Filt Rate > 60; Glucose Random 167 mg/dL (60-115); Magnesium 1.8 mg/dL (1.6-2.6); Potassium 4.5 mmol/L (3.3-5.1); Sodium 128 mmol/L (135-145); Total Protein 6.4 g/dL (6.5-8.0)
[2022-04-13 20:20] VITALS: BP 105/53; PULSE 105; RESP 16; O2SAT 100
--- NOTE | 2022-04-13 20:33 | PC.NURSE ---
Nursing Assessment: Pt's BP is stable, pt is on the continuous monitor technician and it shows sinus Tachy. Pt abd is rigid and distended. Pt had a capillary refill > 2. At the time of the assessment pt was talking it seems he was hallucinating. Pt was filthy and his hands was full of feces. This nurse clean him, but pt was uncomfortable by the touch. Pt labs were tried but pt has pitting edema on his hand +1. pt is a/o x 1. Pt is poor historian. Lungs sounds are clear. Pt is urinary and bowel incontinence.
[2022-04-13 20:39] LABS: Basophils Absolute Auto 0.1 X10*3/uL (0.0-0.2); Basophils Percent Auto 1.2 % (0-2); Eosinophils Absolute Auto 0.2 X10*3/uL (0.0-0.4); Eosinophils Percent Auto 2.2 % (0-4); Hematocrit 27.9 % (42.0-52.0); Hemoglobin 9.8 g/dl (14.0-18.0); Imm Gran Abs Auto 0.06 X10*3/uL (0.00-0.03); Imm Gran Pct Auto 0.7 % (0.0-0.4); Lymphocytes Percent Auto 10.9 % (20-40); Mean Corpuscular HGB Conc 35.1 g/dl (31.0-36.0); Mean Corpuscular Hemoglobin 35.3 pg (27.0-33.0); Mean Corpuscular Volume 100.4 fL (80.0-98.0); Mean Platelet Volume 9.4 fL (9.4-12.4); Monocytes Absolute Auto 1.1 X10*3/uL (0.1-1.2); Monocytes Percent Auto 12.6 % (2-11); Neutrophils Absolute Auto 6.6 x10*3/uL (2.0-8.3); Neutrophils Percent Auto 72.4 % (45-73); Red Blood Count 2.78 X10*6/uL (4.60-5.80); Red Cell Distribution Width 15.7 % (11.0-16.0); White Blood Count 9.1 X10*3/uL (4.8-10.8)
[2022-04-13 20:41] LABS: MANUAL DIFF FLAG NO; Platelet Count 92 X10*3/uL (160-400)
[2022-04-13 21:08] LABS: Lactic Acid 2.7 mmol/L (0.5-2.0)
[2022-04-13 21:51] VITALS: BP 105/53; PULSE 107; RESP 18; TEMP 36.8; O2SAT 100
[2022-04-13 22:35] LABS: Reflex Lactate? Lactic Acid Added
--- NOTE | 2022-04-13 22:54 | PC.NURSE ---
Re-assessment: pt was asleep, pt IVF are running slow, this nurse hang the bolus higher to see the progress.
[2022-04-13 23:20] VITALS: BP 119/60; PULSE 109; RESP 15; TEMP 36.8; O2SAT 100
[2022-04-13 23:31] LABS: ~Lactic Acid-LAB USE ONLY 2.8 mmol/L (0.5-2.0)
[2022-04-14] VITALS (8 sets, daily range): BP systolic 86–119; BP diastolic 49–64; PULSE 107–114; RESP 12–20; TEMP 35.8–36.8; O2SAT 99–100; BMI 27.4
[2022-04-14 00:55] LABS: Appearance Urine Clear; Color Urine Dark Yellow; Glucose Urine UA Negative (Negative); Leukocyte Esterase Urine Small (1+) (Negative); Nitrite Urine Negative (Negative); PH 5.5 (5.0-9.0); UMIC TRIGGER UACC YES; Urine Blood Negative (Negative); Urine Ketones Trace mg/dL (Negative); Urine Protein Negative (Neg-Trace)
--- NOTE | 2022-04-14 01:03 | PC.NURSE ---
Re-assessment: Pt BP is stable, pt is sinus tachy on the monitor. Pt IV infiltrated, it took some time for the provider to get in IV. Pt appears somnolence. IV was inserted by the provider on his right forearm. Pt IVF are running very slow, the bolus was put into the pressure bag. Urine was collected by straight cath, and sent to the lab. Pt skin is sore on his upper/lower extremities with some open wounds. Pt was washed with sponge bath.
[2022-04-14 01:07] LABS: Bacteria Urine None Seen (None Seen); Squamous Epithelial Cell Urine 0-2 /HPF (0-2); UACC Culture Trigger YES; WBC Urine 0-5 /HPF (0-5)
[2022-04-14 01:12] LABS: Reflex Lactate? 2 Y
--- NOTE | 2022-04-14 01:42 | P.HPHOSP_ITS ---
History of Present Illness Date of Service: 04/14/22 Chief Complaint: confused, not well Year old male with past medical history of diabetes, hypertension, liver cirrhosis, alcohol abuse, as well as hypervolemic hyponatremia in the setting of hepatic liver cirrhosis presents to the hospital with complaints of generalized weakness and confusion. Patient is very agitated, frustrated, really cooperative with history. He is alert oriented x3, states that his girlfriend called EMS cuts he has not been feeling well. He reports that he has not slept for 2 days, reports that he has been taking lactulose may be once a day I do not know , and responds i dont know' when I asked him about bowel movements. He reports no chest pain, no abdominal pain, no fever or chills, no nausea or vomiting, no diarrhea constipation, no urinary symptoms and no lower extremity edema. He denies any fever or chills. And just states that he is generally not well. On arrival to the ED patient had a temperature of 98.6 degrees, heart rate of 110, respiratory rate of 16 and 2/50 blood pressure, 100% on room air Labs are significant for WBC count of 9.1, hemoglobin of 9.8 which is around his baseline, hematocrit 27.9, MCV of 100.9, PT of 23.3, INR of 2.0, sodium of 128 which is similar to his most recent, lactic acid of 2.7 that increased 3.1, total bili of 3.7 which is slightly better than his most recent, ammonia of 79 which is increased, UA positive for leukocyte Estrace and trace WBC, COVID-19 negative, n Chest x-ray shows elevated right hemidiaphragm, no gross bony abnormality Of note patient was discharged from the hospital on 118 after being treated for altered mental status secondary to hepatic encephalopathy hyperkalemia and hyponatremia. He left against medical advice on 04/08. Review of Systems Review of Systems: Yes all other systems are reviewed and are negative [facility] Medical History SAUL (acute kidney injury) Alcohol abuse Ascites Diabetes Elevated liver enzymes Hypertension Liver cirrhosis Pressure ulcer Withdrawal seizures Family History Other No family history of coronary artery disease Surgical History No pertinent past surgical history Social History Household Members: Unknown / Unable to assess Housing: Long Term Do you presently have visiting nurse or other home services: Yes Unable to assess alcohol history related to: Refusing to respond Alcohol intake: former Patient Tobacco Use Status: Never used Tobacco Tobacco use type: Smokeless Tobacco Smoked in Last 30 Days: No Second Hand Smoke Exposure: No Use of substances other than those prescribed or required for medical reasons: Unknown Advance Directives: Yes Advance Directives on File: Yes Advance Directives Date on File: 03/18/22 Do you have thoughts of harming others: None Do you have a plan to hurt others: No Plan Recently lost weight without trying: No How much weight loss: Not applicable Eating poorly because of decreased appetite: No Nutrition screen score: 0 Nutrition Risks: No Nutritional Risk Poor oral hygiene: No service: Yes Current occupational status: unemployed Meds Allergies Allergy/AdvReac Type Severity Reaction Status Date / Time acetaminophen [From PERCOCET] Allergy Severe AGITATION Verified 04/13/22 18:14 oxycodone [From PERCOCET] Allergy Severe AGITATION Verified 04/13/22 18:14 bee pollen [Bee Stings] Allergy Mild SWELLING Verified 04/13/22 18:14 lorazepam AdvReac Unknown AGITATION Verified 04/13/22 18:14 Active Medications: Current Medications Acetaminophen (Acetaminophen 325 Mg Tablet) 650 mg PO Q6H PRN PRN Reason: Pain, Mild (Pain Scale 1-3) Dextrose (Dextrose 50 % 25 Gm/50 Ml Syringe) 25 gm IVPUSH Q15M PRN; Protocol PRN Reason: per Hypoglycemia Standing Ord. Docusate Sodium (Docusate Sodium 100 Mg Capsule) 100 mg PO DAILY PRN PRN Reason: Constipation Enoxaparin Sodium (Enoxaparin Sodium 40 Mg/0.4 Ml Syringe) 40 mg SUBCUT Q24H LEO Glucose (Glucose Gel 15 Gm Gel..Gram.) 15 gm PO Q15M PRN; Protocol PRN Reason: per Hypoglycemia Standing Ord. Insulin Human Lispro (Insulin Lispro 100 Unit/Ml 3 Ml Vial) 0 unit SUBCUT QIDACHS LEO; Protocol Lactulose (Lactulose 20 Gm/30 Ml Solution) 30 gm PO QID LEO Ondansetron HCl (Ondansetron Hcl 4 Mg/2 Ml Vial) 4 mg IVPUSH Q8H PRN PRN Reason: Nausea and Vomiting Pharmacy Consult (Consult Rx Perform Med Rec) 1 each MISCELLANE ONCE PRN PRN Reason: Consult order Sodium Chloride (0.9 % Sodium Chloride Flush 3 Ml Syringe) 3 ml IVFLUSH QSHIFT [facility] Home Medications Medication Instructions Recorded Confirmed Last Taken Type lactulose 10 gram/15 mL oral 30 ml PO BID 03/17/22 04/14/22 04/03/22 History solution omeprazole 20 mg capsule,delayed 1 cap PO DAILY 03/17/22 04/14/22 04/03/22 History release insulin lispro 100 unit/mL 0 sliding scale dose subcut TIDAC 04/03/22 04/14/22 04/03/22 History subcutaneous pen magnesium oxide 400 mg PO BID 04/03/22 04/14/22 04/03/22 History Physical Exam Vital Signs and Narrative: Vital Signs: Last Vital Signs Temp 98.2 F 04/13/22 23:20 Pulse 112 H 04/14/22 00:00 Resp 16 04/14/22 00:00 BP 119/60 04/14/22 00:00 Pulse Ox 100 04/14/22 00:00 O2 Del Method 04/14/22 00:00 BMI result Body Mass Index 27.6 Const: Other: Patient not cooperating with exam, very frustrated, alert oriented to self place and situation but will not allow me to examine him Keeps threatening and making physical threats by banging his hand against the railing of the bed and bearing his teeth out me with frustration General: cooperative and no acute distress Eyes: General: appearance normal, both eyes and all related structures Resp: Effort & Inspection: normal respiratory effort Cardio: Rate: regular rate Rhythm: regular rhythm Skin: General skin exam: no rashes or lesions noted Neuro: Cognition (Neuro): normal cognition Extrem: General: Yes normal to inspection and Yes no pedal edema Results Labs 04/13/22 20:32 04/13/22 19:40 Labs: Laboratory Results - last 24 hr 04/13/22 04/13/22 04/13/22 19:40 19:40 20:32 MCV 100.4 H MCH 35.3 H MCHC 35.1 RDW 15.7 Plt Count 92 L D MPV 9.4 Immature Gran % (Auto) 0.7 H Neut % (Auto) 72.4 Lymph % (Auto) 10.9 L [place] % (Auto) 12.6 H Eos % (Auto) 2.2 Baso % (Auto) 1.2 Lymph # (Auto) 1.0 L [place] # (Auto) 1.1 Eos # (Auto) 0.2 Baso # (Auto) 0.1 Abs Immat Gran (auto) 0.06 H Absolute Neuts (auto) 6.6 Absolute Nucleated RBC 0.000 Nucleated RBC % (auto) 0.0 Anion Gap 16 Estim Creat Clear Calc 89.6 Estimated GFR > 60 Random Glucose 167 H Lactic Acid Lactic Acid F/U @ 2Hr Calcium 8.9 Magnesium 1.8 Total Bilirubin 3.7 H AST 39 H ALT 25 Alkaline Phosphatase 175 H Ammonia 79 H Total Protein 6.4 L Albumin 3.0 L Urine Color Urine Appearance Urine pH Ur Specific [place] Urine Protein Urine Glucose (UA) Urine Ketones Urine Blood Urine Nitrite Ur Leukocyte Esterase Urine RBC Urine WBC Ur Squamous Epith Cells Urine Bacteria Hyaline Casts 04/13/22 04/13/22 04/14/22 20:32 23:09 00:45 MCV MCH MCHC RDW Plt Count MPV Immature Gran % (Auto) Neut % (Auto) Lymph % (Auto) [place] % (Auto) Eos % (Auto) Baso % (Auto) Lymph # (Auto) [place] # (Auto) Eos # (Auto) Baso # (Auto) Abs Immat Gran (auto) Absolute Neuts (auto) Absolute Nucleated RBC Nucleated RBC % (auto) Anion Gap Estim Creat Clear Calc Estimated GFR Random Glucose Lactic Acid 2.7 H* Lactic Acid F/U @ 2Hr 2.8 H* Calcium Magnesium Total Bilirubin AST ALT Alkaline Phosphatase Ammonia Total Protein Albumin Urine Color Dark Yellow Urine Appearance Clear Urine pH 5.5 Ur Specific [place] 1.020 Urine Protein Negative Urine Glucose (UA) Negative Urine Ketones Trace Urine Blood Negative Urine Nitrite Negative Ur Leukocyte Esterase Small (1+) H Urine RBC 6-10 H Urine WBC 0-5 Ur Squamous Epith Cells 0-2 Urine Bacteria None Seen Hyaline Casts 11-20 Imaging Radiologist's Impressions: Impressions Chest X-Ray 04/13/22 19:46 IMPRESSION: Moderately elevated right hemidiaphragm. No gross bony abnormality seen. Assessment and Plan (1) Toxic metabolic encephalopathy: Status: Acute (2) UTI (urinary tract infection): Status: Acute (3) Lactic acidosis: Status: Acute (4) Hyperammonemia: Status: Acute (5) Hyponatremia: Status: Acute Plan 56-year-old male with past medical history of liver cirrhosis secondary to alco hol abuse presents to the hospital with complaints of confusion, not feeling well after leaving AMA on 04/08 # acute toxic metabolic encephalopathy/Hyperammonemia - has elevated ammonia of 79 which is a significantly increased from his most recent admission - patient is lucid, agitated, not cooperating with exam but alert and oriented - likely noncompliant with lactulose - will treat with lactulose 30 q.i.d. with a goal of 3-4 BMs daily - follow mental status, BM # hyponatremia - likely secondary to hypovolemic hyponatremia in the setting of liver disease - patient was being followed by nephrology who recommended against uremia, limiting hypotonic solutions, and continue furosemide and spironolactone - will continue the previous recommendation, will consult Nephrology - follow BMP # lactic acidosis - likely secondary to dehydration - no evidence of sepsis - no leukocytosis, afebrile, - will treat with IV fluids (gentle) - follow lactic acid # UTI - patient denies any symptoms but given his encephalopathy will treat any possible confounders including positive UA - follow cultures # Live cirrhosis/hepatic encephalopathy - continue furosemide and spironolactone as well as rifaximin - follow BMP # diabetes - low-dose sliding scale insulin - diabetic diet # microcytic anemia - likely secondary to alcohol abuse, B12/folic acid deficiency - continue thiamine and folic acid DVT prophylaxis: Lovenox Given patient's acute toxic metabolic encephalopathy lactic acidosis, as well as hyponatremia patient required minimum 2 nights inpatient hospital stay for further management and monitoring Time Spent With Patient Time: Total time managing care of this patient today ____ minutes. Quality Stroke Does the patient have a stroke diagnosis?: No VTE Prior VTE?: No VTE Risk Level:: Medical - moderate - high VTE Device Contraindication: Treatment Not Indicated VTE Drug Contraindication: N/A - Med Ordered
[2022-04-14 01:49] LABS: COVID-19 Test Negative (Negative); IDNOW Serial# 16C4AD1C
--- NOTE | 2022-04-14 02:11 | PC.NURSE ---
Re-assessment: Pt was re-position, IVF are running slowly d/t pt keeps moving his arm. Seizure pads were places on his left side d/t pt keeps leaning on his left side.
[2022-04-14 02:45] LABS: Prothrombin Time 23.3 SEC (10.0-13.1); ~Lactic Acid-LAB USE ONLY 3.1 mmol/L (0.5-2.0)
[2022-04-14] MEDS: Enoxaparin Sodium 40 MG/0.4 ML SYRINGE SUBCUT (02:58)
[2022-04-14] MEDS: Lactulose 20 GM/30 ML SOLUTION 30 GM PO ×3 (02:58→12:44)
[2022-04-14 07:30] LABS: Glucose, Whole Blood 199 mg/dL (60-115)
--- NOTE | 2022-04-14 07:34 | PHA.MEDREC ---
Pharmacy Consult ? Medication Reconciliation Pharmacy has completed the medication reconciliation. Checked med rec done last night
[2022-04-14] MEDS: Insulin Lispro 100 UNIT/ML 3 ML VIAL SUBCUT ×3 (08:08→16:28)
[2022-04-14] MEDS: cefTRIAXone sodium 1 GM in 0.9 % Sodium Chloride 50 ML IV (08:08)
[2022-04-14] MEDS: 0.9 % Sodium Chloride Flush 3 ML SYRINGE IVFLUSH ×2 (08:08→16:29)
[2022-04-14] MEDS: 0.9 % Sodium Chloride 1,000 ML 80 ML IVCONT (08:09)
[2022-04-14] MEDS: Sodium Chloride Tab 1 GM TABLET PO (08:10)
[2022-04-14] MEDS: Omeprazole 20 MG CAPSULE.DR PO (08:10)
[2022-04-14] MEDS: Magnesium Oxide 400 MG TABLET PO (08:10)
[2022-04-14] MEDS: Folic Acid 1 MG TABLET PO (08:10)
[2022-04-14] MEDS: Spironolactone 25 MG TABLET PO (08:10)
[2022-04-14] MEDS: rifAXIMin 550 MG TABLET PO (08:10)
[2022-04-14] MEDS: Furosemide 20 MG TABLET PO (08:11)
[2022-04-14 08:28] LABS: MANUAL DIFF FLAG NO
[2022-04-14 08:32] LABS: Basophils Absolute Auto 0.1 X10*3/uL (0.0-0.2); Basophils Percent Auto 1.3 % (0-2); Eosinophils Absolute Auto 0.2 X10*3/uL (0.0-0.4); Eosinophils Percent Auto 2.7 % (0-4); Hematocrit 25.2 % (42.0-52.0); Hemoglobin 8.8 g/dl (14.0-18.0); Imm Gran Abs Auto 0.03 X10*3/uL (0.00-0.03); Imm Gran Pct Auto 0.4 % (0.0-0.4); Lymphocytes Absolute Auto 1.2 X10*3/uL (1.2-4.9); Lymphocytes Percent Auto 15.5 % (20-40); Mean Corpuscular HGB Conc 34.9 g/dl (31.0-36.0); Mean Corpuscular Hemoglobin 35.1 pg (27.0-33.0); Mean Corpuscular Volume 100.4 fL (80.0-98.0); Mean Platelet Volume 9.3 fL (9.4-12.4); Monocytes Absolute Auto 0.9 X10*3/uL (0.1-1.2); Monocytes Percent Auto 11.9 % (2-11); Neutrophils Absolute Auto 5.3 x10*3/uL (2.0-8.3); Neutrophils Percent Auto 68.2 % (45-73); Red Blood Count 2.51 X10*6/uL (4.60-5.80); Red Cell Distribution Width 15.5 % (11.0-16.0); White Blood Count 7.7 X10*3/uL (4.8-10.8)
[2022-04-14 08:33] LABS: Platelet Count 81 X10*3/uL (160-400)
[2022-04-14 09:04] LABS: Alanine Aminotransferase 22 U/L (0-40); Albumin Level 2.6 g/dL (3.5-5.0); Alkaline Phosphatase 135 U/L (39-117); Anion Gap 11 (12-20); Aspartate Amino Transferase 34 U/L (5-37); Bilirubin Total 3.9 mg/dL (0.0-1.0); Blood Urea Nitrogen 23 mg/dL (9-16); Calcium 8.6 mg/dL (8.4-10.2); Carbon Dioxide 21 mmol/L (22-29); Chloride 102 mmol/L (96-108); Creatinine Clr Calc Pharmacy 91.3; Estimated Glomerular Filt Rate > 60; Glucose Random 183 mg/dL (60-115); Potassium 4.2 mmol/L (3.3-5.1); Sodium 130 mmol/L (135-145); Total Protein 5.5 g/dL (6.5-8.0)
[2022-04-14 09:16] LABS: Lactic Acid 2.5 mmol/L (0.5-2.0)
[2022-04-14 10:26] LABS: Reflex Lactate? Lactic Acid Added
[2022-04-14 11:13] LABS: Glucose, Whole Blood 177 mg/dL (60-115)
--- NOTE | 2022-04-14 11:40 | HO.PM.IMPN ---
Subjective Subjective Date of Service: 04/14/22 Interval History: Clear thought pattern from what was dictated in H and P; unpleasant affect Review of Systems Denies chest pain Denies shortness of breath Denies nausea vomiting diarrhea Physical Exam Vital Signs: Vital Signs: Last Vital Signs Temp 97.6 F 04/14/22 07:23 Pulse 108 H 04/14/22 07:23 Resp 12 04/14/22 07:23 BP 96/64 04/14/22 07:23 Pulse Ox 100 04/14/22 07:23 O2 Del Method 04/14/22 07:23 BMI result Body Mass Index 27.4 Const: Other: No acute issues Resp: Other: Clear to auscultation bilaterally no rales rhonchi or wheezes Cardio: Other: No S4; positive S1-S2; no S3 murmurs rubs or gallops Neuro: Other: Cranial nerves 2-12 grossly intact as tested motor 5/5 all extremities sensation intact Objective Data Active Medications Acetaminophen (Acetaminophen 325 Mg Tablet) 650 mg PO Q6H PRN PRN Reason: Pain, Mild (Pain Scale 1-3) Dextrose (Dextrose 50 % 25 Gm/50 Ml Syringe) 25 gm IVPUSH Q15M PRN; Protocol PRN Reason: per Hypoglycemia Standing Ord. Dextrose (Dextrose 50 % 25 Gm/50 Ml Syringe) 25 gm IVPUSH Q15M PRN; Protocol PRN Reason: per Hypoglycemia Standing Ord. Docusate Sodium (Docusate Sodium 100 Mg Capsule) 100 mg PO DAILY PRN PRN Reason: Constipation Enoxaparin Sodium (Enoxaparin Sodium 40 Mg/0.4 Ml Syringe) 40 mg SUBCUT Q24H [facility] Last Admin: 04/14/22 02:58 Dose: 40 mg Documented By: SAKINA Folic Acid (Folic Acid 1 Mg Tablet) 1 mg PO DAILY [facility] Last Admin: 04/14/22 08:10 Dose: 1 mg Documented By: STAS Furosemide (Furosemide 20 Mg Tablet) 20 mg PO DAILY [facility]; Protocol Last Admin: 04/14/22 08:11 Dose: 20 mg Documented By: STAS Glucose (Glucose Gel 15 Gm Gel..Gram.) 15 gm PO Q15M PRN; Protocol PRN Reason: per Hypoglycemia Standing Ord. Glucose (Glucose Gel 15 Gm Gel..Gram.) 15 gm PO Q15M PRN; Protocol PRN Reason: per Hypoglycemia Standing Ord. Ceftriaxone Sodium 1 gm/ (Sodium Chloride) 50 mls @ 100 mls/hr IV Q24H [facility] Last Infusion: 04/14/22 09:58 Dose: 0 mls/hr Documented By: STAS Sodium Chloride (Ns) 1,000 mls @ 80 mls/hr IVCONT .[id number] [facility] Last Admin: 04/14/22 08:09 Dose: 80 mls/hr Documented By: STAS Insulin Human Lispro (Insulin Lispro 100 Unit/Ml 3 Ml Vial) 0 unit SUBCUT QIDAS [facility]; Protocol Last Admin: 04/14/22 08:08 Dose: 2 unit Documented By: STAS Insulin Human Lispro (Insulin Lispro 100 Unit/Ml 3 Ml Vial) 0 unit SUBCUT QIDAS [facility]; Protocol Last Admin: 04/14/22 08:11 Dose: Not Given Documented By: STAS Non-Admin Reason: Duplicate Order Lactulose (Lactulose 20 Gm/30 Ml Solution) 30 gm PO QID [facility] Last Admin: 04/14/22 08:12 Dose: 30 gm Documented By: STAS Magnesium Oxide (Magnesium Oxide 400 Mg Tablet) 400 mg PO BID [facility] Last Admin: 04/14/22 08:10 Dose: 400 mg Documented By: STAS Omeprazole (Omeprazole 20 Mg Capsule.Dr) 20 mg PO DAILY@0630 [facility] Last Admin: 04/14/22 08:10 Dose: 20 mg Documented By: STAS Ondansetron HCl (Ondansetron Hcl 4 Mg/2 Ml Vial) 4 mg IVPUSH Q8H PRN PRN Reason: Nausea and Vomiting Pharmacy Consult (Consult Rx Perform Med Rec) 1 each MISCELLANE ONCE PRN PRN Reason: Consult order Rifaximin (Rifaximin 550 Mg Tablet) 550 mg PO BID [facility] Last Admin: 04/14/22 08:10 Dose: 550 mg Documented By: STAS Sodium Chloride (0.9 % Sodium Chloride Flush 3 Ml Syringe) 3 ml IVFLUSH QSHIFT [facility] Last Admin: 04/14/22 08:08 Dose: 3 ml Documented By: STAS Sodium Chloride (Sodium Chloride Tab 1 Gm Tablet) 1 gm PO DAILY [facility] Last Admin: 04/14/22 08:10 Dose: 1 gm Documented By: STAS Spironolactone (Spironolactone 25 Mg Tablet) 25 mg PO DAILY [facility]; Protocol Last Admin: 04/14/22 08:10 Dose: 25 mg Documented By: STAS Labs 04/14/22 08:12 04/14/22 08:12 Labs: Laboratory Results - last 24 hr 04/13/22 04/13/22 04/13/22 19:40 19:40 20:32 MCV 100.4 H MCH 35.3 H MCHC 35.1 RDW 15.7 Plt Count 92 L D MPV 9.4 Immature Gran % (Auto) 0.7 H Neut % (Auto) 72.4 Lymph % (Auto) 10.9 L [place] % (Auto) 12.6 H Eos % (Auto) 2.2 Baso % (Auto) 1.2 Lymph # (Auto) 1.0 L [place] # (Auto) 1.1 Eos # (Auto) 0.2 Baso # (Auto) 0.1 Abs Immat Gran (auto) 0.06 H Absolute Neuts (auto) 6.6 Absolute Nucleated RBC 0.000 Nucleated RBC % (auto) 0.0 PT INR Anion Gap 16 Estim Creat Clear Calc 89.6 Estimated GFR > 60 POC Glucose Random Glucose 167 H Lactic Acid Lactic Acid F/U @ 2Hr Lactic Acid F/U @ 4Hr Calcium 8.9 Magnesium 1.8 Total Bilirubin 3.7 H AST 39 H ALT 25 Alkaline Phosphatase 175 H Ammonia 79 H Total Protein 6.4 L Albumin 3.0 L Urine Color Urine Appearance Urine pH Ur Specific [place] Urine Protein Urine Glucose (UA) Urine Ketones Urine Blood Urine Nitrite Ur Leukocyte Esterase Urine RBC Urine WBC Ur Squamous Epith Cells Urine Bacteria Hyaline Casts COVID-19 ([facility]) COVID-19 Clin Com 04/13/22 04/13/22 04/14/22 20:32 23:09 00:45 MCV MCH MCHC RDW Plt Count MPV Immature Gran % (Auto) Neut % (Auto) Lymph % (Auto) [place] % (Auto) Eos % (Auto) Baso % (Auto) Lymph # (Auto) [place] # (Auto) Eos # (Auto) Baso # (Auto) Abs Immat Gran (auto) Absolute Neuts (auto) Absolute Nucleated RBC Nucleated RBC % (auto) PT INR Anion Gap Estim Creat Clear Calc Estimated GFR POC Glucose Random Glucose Lactic Acid 2.7 H* Lactic Acid F/U @ 2Hr 2.8 H* Lactic Acid F/U @ 4Hr Calcium Magnesium Total Bilirubin AST ALT Alkaline Phosphatase Ammonia Total Protein Albumin Urine Color Dark Yellow Urine Appearance Clear Urine pH 5.5 Ur Specific [place] 1.020 Urine Protein Negative Urine Glucose (UA) Negative Urine Ketones Trace Urine Blood Negative Urine Nitrite Negative Ur Leukocyte Esterase Small (1+) H Urine RBC 6-10 H Urine WBC 0-5 Ur Squamous Epith Cells 0-2 Urine Bacteria None Seen Hyaline Casts 11-20 COVID-19 ([facility]) COVID-19 Clin Com 04/14/22 04/14/22 04/14/22 01:29 02:04 02:04 MCV MCH MCHC RDW Plt Count MPV Immature Gran % (Auto) Neut % (Auto) Lymph % (Auto) [place] % (Auto) Eos % (Auto) Baso % (Auto) Lymph # (Auto) [place] # (Auto) Eos # (Auto) Baso # (Auto) Abs Immat Gran (auto) Absolute Neuts (auto) Absolute Nucleated RBC Nucleated RBC % (auto) PT 23.3 H INR 2.0 H Anion Gap Estim Creat Clear Calc Estimated GFR POC Glucose Random Glucose Lactic Acid Lactic Acid F/U @ 2Hr Lactic Acid F/U @ 4Hr 3.1 H* Calcium Magnesium Total Bilirubin AST ALT Alkaline Phosphatase Ammonia Total Protein Albumin Urine Color Urine Appearance Urine pH Ur Specific [place] Urine Protein Urine Glucose (UA) Urine Ketones Urine Blood Urine Nitrite Ur Leukocyte Esterase Urine RBC Urine WBC Ur Squamous Epith Cells Urine Bacteria Hyaline Casts COVID-19 ([facility]) Negative COVID-19 Clin Com See Note 04/14/22 04/14/22 04/14/22 07:22 08:12 08:12 MCV 100.4 H MCH 35.1 H MCHC 34.9 RDW 15.5 Plt Count 81 L MPV 9.3 L Immature Gran % (Auto) 0.4 Neut % (Auto) 68.2 Lymph % (Auto) 15.5 L [place] % (Auto) 11.9 H Eos % (Auto) 2.7 Baso % (Auto) 1.3 Lymph # (Auto) 1.2 [place] # (Auto) 0.9 Eos # (Auto) 0.2 Baso # (Auto) 0.1 Abs Immat Gran (auto) 0.03 Absolute Neuts (auto) 5.3 Absolute Nucleated RBC 0.000 Nucleated RBC % (auto) 0.0 PT INR Anion Gap 11 L Estim Creat Clear Calc 91.3 Estimated GFR > 60 POC Glucose 199 H Random Glucose 183 H Lactic Acid Lactic Acid F/U @ 2Hr Lactic Acid F/U @ 4Hr Calcium 8.6 Magnesium Total Bilirubin 3.9 H AST 34 ALT 22 Alkaline Phosphatase 135 H Ammonia Total Protein 5.5 L Albumin 2.6 L Urine Color Urine Appearance Urine pH Ur Specific [place] Urine Protein Urine Glucose (UA) Urine Ketones Urine Blood Urine Nitrite Ur Leukocyte Esterase Urine RBC Urine WBC Ur Squamous Epith Cells Urine Bacteria Hyaline Casts COVID-19 ([facility]) COVID-19 [facility] 04/14/22 04/14/22 08:12 11:06 MCV MCH MCHC RDW Plt Count MPV Immature Gran % (Auto) Neut % (Auto) Lymph % (Auto) [place] % (Auto) Eos % (Auto) Baso % (Auto) Lymph # (Auto) [place] # (Auto) Eos # (Auto) Baso # (Auto) Abs Immat Gran (auto) Absolute Neuts (auto) Absolute Nucleated RBC Nucleated RBC % (auto) PT INR Anion Gap Estim Creat Clear Calc Estimated GFR POC Glucose 177 H Random Glucose Lactic Acid 2.5 H* Lactic Acid F/U @ 2Hr Lactic Acid F/U @ 4Hr Calcium Magnesium Total Bilirubin AST ALT Alkaline Phosphatase Ammonia Total Protein Albumin Urine Color Urine Appearance Urine pH Ur Specific [place] Urine Protein Urine Glucose (UA) Urine Ketones Urine Blood Urine Nitrite Ur Leukocyte Esterase Urine RBC Urine WBC Ur Squamous Epith Cells Urine Bacteria Hyaline Casts COVID-19 ([facility]) COVID-19 [employer] Assessment and Plan (1) Toxic metabolic encephalopathy: Status: Acute (2) UTI (urinary tract infection): Status: Acute (3) Hyperammonemia: Status: Acute (4) Hyponatremia: Status: Acute Plan 56-year-old male with past medical history of liver cirrhosis secondary to alcohol abuse presents to the hospital with complaints of confusion, not feeling well after leaving AMA on 04/08 1.Acute toxic metabolic encephalopathy/Hyperammonemia (improved overnight) -noncompliant with lactulose -lactulose 30 q.i.d. with a goal of 3-4 BMs daily -follow mental status, BM 2.Hyponatremia - likely secondary to hypovolemic hyponatremia in the setting of liver disease - continue furosemide and spironolactone - will continue the previous recommendation, will consult Nephrology - follow BMP 3.Lactic acidosis (resolving) - likely secondary to dehydration - no evidence of sepsis 4.UTI - continue empirical ceftriaxone - follow cultures 5.Liver cirrhosis/hepatic encephalopathy - continue furosemide/spironolactone/rifaximin - follow BMP 6.Diabetes II - low-dose sliding scale insulin - diabetic diet DVT prophylaxis: Lovenox Were Will require ongoing hospitalization to treat hepatic cephalopathy; continue empiric treatment for UTI pending culture Time Spent With Patient Time: Total time managing care of this patient today ____ minutes. Quality Stroke Does the patient have a stroke diagnosis?: No VTE Prior VTE?: No VTE Risk Level:: Medical - moderate - high VTE Device Contraindication: Treatment Not Indicated VTE Drug Contraindication: N/A - Med Ordered
[2022-04-14 11:41] LABS: ~Lactic Acid-LAB USE ONLY 2.8 mmol/L (0.5-2.0)
[2022-04-14 13:15] LABS: Reflex Lactate? 2 Y
--- NOTE | 2022-04-14 13:52 | MHC.CM.PN ---
pt lives with girlfriend is luis pichardo says he has a ride home and needs no services pt
[2022-04-14 14:21] LABS: ~Lactic Acid-LAB USE ONLY 2.4 mmol/L (0.5-2.0)
[2022-04-14 16:04] LABS: Glucose, Whole Blood 220 mg/dL (60-115)
--- NOTE | 2022-04-14 17:00 | PC.NURSE ---
Addendum entered by Brooke Cohen RN 04/14/22 19:18: 1715 Nico Goode at bedside to speak with pt about concerns, behavior and attempted to give medication; no effectiveness. Pt spit medication up/out in front of RN. Original Note: Pt verbally abusive all shift and constantly yelling at staff. Pt has been repositioned, offered snacks and care has been completed all throughout the shift. Pt still yelling at staff and swearing. Pt educated on the importance on taking medication; pt refusing. Pt reproached with no effectiveness. Pt wanting to leave AMA, Dr. Falcon notified and aware.
[2022-04-14 19:39] LABS: Glucose, Whole Blood 136 mg/dL (60-115)
--- NOTE | 2022-04-15 00:10 | CONS_ITS ---
DATE OF SERVICE: 04/14/2022 REASON FOR CONSULTATION: I was asked to see patient to assist in evaluation and management of patient's hyponatremia with a serum sodium today of 130, whereas reviewing his serum sodiums, they had typically been in the 125 to 130 range. HISTORY OF PRESENT ILLNESS: In summary, the patient is a 56-year-old gentleman with a history of liver cirrhosis, diabetes, hypertension, alcohol abuse, again chronic hyponatremia, who was admitted to the hospital complaining of generalized weakness and confusion. Information was obtained from the electronic medical records. The patient is agitated and poor historian. He was recently in the hospital and just discharged earlier this month. He denies any chest pain, fever, sweats, or chills. PAST MEDICAL HISTORY: As mentioned includes the liver cirrhosis, alcohol abuse, ascites, diabetes, hypertension, chronic hyponatremia and mention made of acute kidney injury in the past. MEDICATIONS: His medications on admission are listed including lactulose, Prilosec, insulin, and mag oxide. Current medications are on the MAR. SOCIAL HISTORY: He is a nonsmoker but says he is a former alcohol user. It is unclear when the last time he used alcohol. FAMILY HISTORY: Noncontributory. REVIEW OF SYSTEMS: Limited and as noted above. PHYSICAL EXAMINATION: VITAL SIGNS: Blood pressure of 96/60 with a heart rate of 100. HEAD: Atraumatic and normocephalic. NECK: Supple. Mucous membranes moist. LUNGS: Breath sounds bilaterally. CARDIAC: Regular rate and rhythm. ABDOMEN: Soft, nontender, with question of ascites. EXTREMITIES: Show no edema. LABORATORY DATA: Labs from today show sodium 130, potassium 4.2, chloride 102, bicarb 21, BUN 23, creatinine 0.9, total bilirubin 3.9, albumin 2.6. Hemoglobin 8.8, hematocrit 25.2, white blood cell count 7.7. Urine studies show urine sodium on previous admission less than 20. No urine studies done this admission. IMPRESSION: A 56-YEAR-OLD, CIRRHOTIC, READMITTED TO THE HOSPITAL WITH FAILURE TO THRIVE NOTED TO HAVE HYPONATREMIA. 1. Hypervolemic hyponatremia. This is due to liver cirrhosis and decreased effective arterial volume with secondary increase in ADH release that is nonosmotically driven causing dilutional hyponatremia. Unfortunately, on a p.o. fluid restriction, his serum sodium is improving at 130 today. 2. Hypervolemia. He is maintained on Lasix and spironolactone. Seems to be tolerating this well and hope would be that we can control his volume on this and not require large volume paracentesis. RECOMMENDATIONS: At this time include: 1. Continue to track his serum sodium. Continue him on p.o. fluid restriction. Avoid nephrotoxins such as NSAIDs. 2. We will follow the patient with the team. MD ANGELIA Up/MARCIA / [phone]
[2022-04-15 00:13] VITALS: BP 145/67; PULSE 60; RESP 18; TEMP 36.2; O2SAT 96
[2022-04-15] MEDS: Enoxaparin Sodium 40 MG/0.4 ML SYRINGE SUBCUT (01:08)
[2022-04-15] MEDS: 0.9 % Sodium Chloride 1,000 ML 80 ML IVCONT (01:08)
[2022-04-15] MEDS: cefTRIAXone sodium 1 GM in 0.9 % Sodium Chloride 50 ML IV (05:47)
[2022-04-15] MEDS: Omeprazole 20 MG CAPSULE.DR PO (06:12)
[2022-04-15 06:49] LABS: MANUAL DIFF FLAG NO
--- NOTE | 2022-04-15 06:53 | PC.NURSE ---
Patient refused 21:00 medications. Patient pulled out IV. Patient refused 04:00 vitals.
[2022-04-15 06:54] LABS: Basophils Absolute Auto 0.1 X10*3/uL (0.0-0.2); Basophils Percent Auto 0.8 % (0-2); Eosinophils Absolute Auto 0.2 X10*3/uL (0.0-0.4); Eosinophils Percent Auto 2.7 % (0-4); Hematocrit 26.4 % (42.0-52.0); Hemoglobin 9.1 g/dl (14.0-18.0); Imm Gran Abs Auto 0.06 X10*3/uL (0.00-0.03); Imm Gran Pct Auto 0.7 % (0.0-0.4); Lymphocytes Absolute Auto 1.1 X10*3/uL (1.2-4.9); Lymphocytes Percent Auto 13.7 % (20-40); Mean Corpuscular HGB Conc 34.5 g/dl (31.0-36.0); Mean Corpuscular Volume 101.5 fL (80.0-98.0); Mean Platelet Volume 9.3 fL (9.4-12.4); Monocytes Percent Auto 11.7 % (2-11); Neutrophils Absolute Auto 5.8 x10*3/uL (2.0-8.3); Neutrophils Percent Auto 70.4 % (45-73); Red Cell Distribution Width 15.6 % (11.0-16.0); White Blood Count 8.3 X10*3/uL (4.8-10.8)
[2022-04-15 06:55] LABS: Platelet Count 82 X10*3/uL (160-400)
[2022-04-15 07:17] LABS: Alanine Aminotransferase 33 U/L (0-40); Albumin Level 2.7 g/dL (3.5-5.0); Alkaline Phosphatase 200 U/L (39-117); Anion Gap 13 (12-20); Aspartate Amino Transferase 55 U/L (5-37); Bilirubin Total 2.7 mg/dL (0.0-1.0); Blood Urea Nitrogen 18 mg/dL (9-16); Calcium 8.5 mg/dL (8.4-10.2); Carbon Dioxide 19 mmol/L (22-29); Chloride 105 mmol/L (96-108); Creatinine Clr Calc Pharmacy 80.6; Estimated Glomerular Filt Rate > 60; Glucose Fasting 173 mg/dL (60-99); Potassium 4.5 mmol/L (3.3-5.1); Sodium 132 mmol/L (135-145); Total Protein 5.7 g/dL (6.5-8.0)
[2022-04-15 07:19] LABS: Glucose, Whole Blood 177 mg/dL (60-115)
[2022-04-15 07:32] VITALS: BP 107/59; PULSE 110; RESP 20; TEMP 37.2; O2SAT 100
[2022-04-15] MEDS: Lactulose 20 GM/30 ML SOLUTION 30 GM PO ×3 (09:03→16:25)
[2022-04-15] MEDS: 0.9 % Sodium Chloride Flush 3 ML SYRINGE IVFLUSH (09:04)
[2022-04-15] MEDS: Magnesium Oxide 400 MG TABLET PO (09:04)
[2022-04-15] MEDS: Folic Acid 1 MG TABLET PO (09:04)
[2022-04-15] MEDS: Sodium Chloride Tab 1 GM TABLET PO (09:04)
[2022-04-15] MEDS: rifAXIMin 550 MG TABLET PO (09:04)
[2022-04-15] MEDS: Furosemide 20 MG TABLET PO (09:04)
[2022-04-15] MEDS: Spironolactone 25 MG TABLET PO (09:04)
[2022-04-15] MEDS: Insulin Lispro 100 UNIT/ML 3 ML VIAL SUBCUT ×3 (09:05→16:23)
--- NOTE | 2022-04-15 10:32 | P.CDIC_ITS ---
CDI Concurrent Query Documentation Clarification: PHYSICIAN'S DOCUMENTATION REQUEST Date of Query: 04/15/22 1032 Patient Name: Ritesh Balderas Admit Date: 04/14/22 Dear Doctor, A review of the medical record indicates additional documentation may be needed. Please review below and update the documentation accordingly. Clinical Indicators: Is there a diagnosis that correlates with these lab findings below: Risk Factors/Clinical Indicators/Treatments Labs: Albumin on 04/14 - 2.6 Albumin on 04/15 - 2.7 Based on the above, could you clarify in the Progress Notes the appropriate diagnosis, if significant, that supports the above abnormalities and additional evaluation, monitoring, and/or treatment rendered: * Hypoalbuminemia * Other (please specify) * Unable to determine Use of terms such as suspected, likely, concern for, or probable (associated with a specific diagnosis that is being evaluated, monitored, or treated as if it exists) are acceptable and can be coded in the inpatient setting, when documented at the time of discharge. Thank you, Audra Tapia MS, RN, CCRN Extension: [phone] Please use your independent medical judgment in providing your response. THIS QUERY IS PART OF THE PERMANENT MEDICAL RECORD Provider Response: Other Other Diagnosis: Hypoalbuminemia
[2022-04-15 11:22] LABS: Glucose, Whole Blood 218 mg/dL (60-115)
[2022-04-15 15:13] VITALS: BP 100/59; PULSE 106; RESP 18; TEMP 36.2; O2SAT 100
[2022-04-15 15:48] LABS: Glucose, Whole Blood 170 mg/dL (60-115)
--- NOTE | 2022-04-15 16:05 | P.PNIM_ITS ---
Subjective Subjective Date of Service: 04/15/22 Interval History: Somnolent but arousable. Continues to be noncompliant with therapies Review of Systems Unable to obtain Physical Exam Vital Signs: Vital Signs: Last Vital Signs Temp 97.1 F 04/15/22 15:13 Pulse 106 H 04/15/22 15:13 Resp 18 04/15/22 15:13 BP 100/59 L 04/15/22 15:13 Pulse Ox 100 04/15/22 15:13 O2 Del Method 04/15/22 15:13 BMI result Body Mass Index 27.4 Const: Other: No acute issues Resp: Other: Clear to auscultation bilaterally no rales rhonchi or wheezes Cardio: Other: No S4; positive S1-S2; no S3 murmurs rubs or gallops Neuro: Other: Cranial nerves 2-12 grossly intact as tested motor 5/5 all extremities sensation intact Objective Data Active Medications Acetaminophen (Acetaminophen 325 Mg Tablet) 650 mg PO Q6H PRN PRN Reason: Pain, Mild (Pain Scale 1-3) Dextrose (Dextrose 50 % 25 Gm/50 Ml Syringe) 25 gm IVPUSH Q15M PRN; Protocol PRN Reason: per Hypoglycemia Standing Ord. Dextrose (Dextrose 50 % 25 Gm/50 Ml Syringe) 25 gm IVPUSH Q15M PRN; Protocol PRN Reason: per Hypoglycemia Standing Ord. Docusate Sodium (Docusate Sodium 100 Mg Capsule) 100 mg PO DAILY PRN PRN Reason: Constipation Enoxaparin Sodium (Enoxaparin Sodium 40 Mg/0.4 Ml Syringe) 40 mg SUBCUT Q24H [facility] Last Admin: 04/15/22 01:08 Dose: 40 mg Documented By: ANNALEE Folic Acid (Folic Acid 1 Mg Tablet) 1 mg PO DAILY [facility] Last Admin: 04/15/22 09:04 Dose: 1 mg Documented By: STAS Furosemide (Furosemide 20 Mg Tablet) 20 mg PO DAILY [facility]; Protocol Last Admin: 04/15/22 09:04 Dose: 20 mg Documented By: STAS Glucose (Glucose Gel 15 Gm Gel..Gram.) 15 gm PO Q15M PRN; Protocol PRN Reason: per Hypoglycemia Standing Ord. Glucose (Glucose Gel 15 Gm Gel..Gram.) 15 gm PO Q15M PRN; Protocol PRN Reason: per Hypoglycemia Standing Ord. Ceftriaxone Sodium 1 gm/ (Sodium Chloride) 50 mls @ 100 mls/hr IV Q24H [facility] Last Infusion: 04/15/22 06:05 Dose: 0 mls/hr Documented By: ANNALEE Sodium Chloride (Ns) 1,000 mls @ 80 mls/hr IVCONT .[id number] [facility] Last Infusion: 04/15/22 06:18 Dose: 0 mls/hr Documented By: ANNALEE Insulin Human Lispro (Insulin Lispro 100 Unit/Ml 3 Ml Vial) 0 unit SUBCUT QIDACHS [facility]; Protocol Last Admin: 04/15/22 12:02 Dose: 4 unit Documented By: STAS Lactulose (Lactulose 20 Gm/30 Ml Solution) 30 gm PO QID [facility] Last Admin: 04/15/22 12:05 Dose: 30 gm Documented By: STAS Magnesium Oxide (Magnesium Oxide 400 Mg Tablet) 400 mg PO BID [facility] Last Admin: 04/15/22 09:04 Dose: 400 mg Documented By: STAS Omeprazole (Omeprazole 20 Mg Capsule.Dr) 20 mg PO DAILY@0630 [facility] Last Admin: 04/15/22 06:12 Dose: 20 mg Documented By: ANANLEE Ondansetron HCl (Ondansetron Hcl 4 Mg/2 Ml Vial) 4 mg IVPUSH Q8H PRN PRN Reason: Nausea and Vomiting Pharmacy Consult (Consult Rx Perform Med Rec) 1 each MISCELLANE ONCE PRN PRN Reason: Consult order Rifaximin (Rifaximin 550 Mg Tablet) 550 mg PO BID [facility] Last Admin: 04/15/22 09:04 Dose: 550 mg Documented By: STAS Sodium Chloride (0.9 % Sodium Chloride Flush 3 Ml Syringe) 3 ml IVFLUSH QSHIFT [facility] Last Admin: 04/15/22 12:06 Dose: Not Given Documented By: STAS Non-Admin Reason: No Access Sodium Chloride (Sodium Chloride Tab 1 Gm Tablet) 1 gm PO DAILY [facility] Last Admin: 04/15/22 09:04 Dose: 1 gm Documented By: STAS Spironolactone (Spironolactone 25 Mg Tablet) 25 mg PO DAILY [facility]; Protocol Last Admin: 04/15/22 09:04 Dose: 25 mg Documented By: STAS Labs 04/15/22 06:29 04/15/22 06:29 Labs: Laboratory Results - last 24 hr 04/14/22 04/15/22 04/15/22 19:34 06:29 06:29 MCV 101.5 H MCH 35.0 H MCHC 34.5 RDW 15.6 Plt Count 82 L MPV 9.3 L Immature Gran % (Auto) 0.7 H Neut % (Auto) 70.4 Lymph % (Auto) 13.7 L [place] % (Auto) 11.7 H Eos % (Auto) 2.7 Baso % (Auto) 0.8 Lymph # (Auto) 1.1 L [place] # (Auto) 1.0 Eos # (Auto) 0.2 Baso # (Auto) 0.1 Abs Immat Gran (auto) 0.06 H Absolute Neuts (auto) 5.8 Absolute Nucleated RBC 0.000 Nucleated RBC % (auto) 0.0 Anion Gap 13 Estim Creat Clear Calc 80.6 Estimated GFR > 60 POC Glucose 136 H Fasting Glucose 173 H Calcium 8.5 Total Bilirubin 2.7 H AST 55 H ALT 33 Alkaline Phosphatase 200 H Total Protein 5.7 L Albumin 2.7 L 04/15/22 04/15/22 04/15/22 07:14 11:15 15:42 MCV MCH MCHC RDW Plt Count MPV Immature Gran % (Auto) Neut % (Auto) Lymph % (Auto) [place] % (Auto) Eos % (Auto) Baso % (Auto) Lymph # (Auto) [place] # (Auto) Eos # (Auto) Baso # (Auto) Abs Immat Gran (auto) Absolute Neuts (auto) Absolute Nucleated RBC Nucleated RBC % (auto) Anion Gap Estim Creat Clear Calc Estimated GFR POC Glucose 177 H 218 H 170 H Fasting Glucose Calcium Total Bilirubin AST ALT Alkaline Phosphatase Total Protein Albumin Microbiology Microbiology Results: Microbiology 04/14/22 Unknown Urine Culture - Final Urine clean catch - Urine nascimento top No growth. 04/13/22 20:32 Blood Culture - Preliminary Blood - Venous No growth after 24 hours. 04/13/22 20:32 Blood Culture - Preliminary Blood - Venous No growth after 24 hours. Assessment and Plan (1) Toxic metabolic encephalopathy: Status: Acute (2) Hyperammonemia: Status: Acute (3) Hyponatremia: Status: Acute Plan 56-year-old male with past medical history of liver cirrhosis secondary to alcohol abuse presents to the hospital with complaints of confusion, not feeling well after leaving AMA on 04/08 1.Acute toxic metabolic encephalopathy/Hyperammonemia (improved overnight) -noncompliant with lactulose... Encourage compliance -lactulose 30 q.i.d. with a goal of 3-4 BMs daily -follow mental status, BM 2.Hyponatremia - likely secondary to hypovolemic hyponatremia in the setting of liver disease - continue furosemide and spironolactone - will continue the previous recommendation.. Fluid restriction - follow BMP 3.Lactic acidosis (resolving) - likely secondary to dehydration - no evidence of sepsis 4.UTI - continue empirical ceftriaxone - follow cultures 5.Liver cirrhosis/hepatic encephalopathy - continue furosemide/spironolactone/rifaximin - follow BMP 6.Diabetes II - low-dose sliding scale insulin - diabetic diet DVT prophylaxis: Lovenox Were Will require ongoing hospitalization to treat hepatic cephalopathy; continue empiric treatment for UTI pending culture Time Spent With Patient Time: Total time managing care of this patient today ____ minutes. Quality Stroke Does the patient have a stroke diagnosis?: No VTE Prior VTE?: No VTE Risk Level:: Medical - moderate - high VTE Device Contraindication: Treatment Not Indicated VTE Drug Contraindication: N/A - Med Ordered
[2022-04-15 19:46] VITALS: BP 101/65; PULSE 110; RESP 18; TEMP 36.8; O2SAT 100
--- NOTE | 2022-04-15 21:09 | PM.EVENT ---
Event Note Date of Service: 04/15/22 Event Note: Pt wants to leave against medical advice. He is awake, alert and oriented . he understands the risk he is taking by leaving. which could be coma and potential in worst case scenario. he verbalized understanding. girlfriend is picking him up. Time Spent With Patient Time: Total time managing care of this patient today ____ minutes.
--- NOTE | 2022-04-15 22:52 | PC.NURSE ---
2100 Patient was belligerent and was requesting to leave , Dr Peres explained all risks associated with leaving against Medical advice.
--- NOTE | 2022-04-15 23:05 | MHC.CM.ED ---
CM received telephone call from [facility] Nursing Escort Car Driver with a request to assist with a patient, Ritesh Mendoza, who left room 478 tonight AMA. Pt does not have transport home and has been waiting in the waiting room. He has been angry and verbally abusive to the staff. According to the patient, he has a ride home from his S.O. Deann Vera ([phone]). CM and Nursing Escort Car Driver met with patient, who had demanded to be moved to the [facility] ED door prior to our arrival. CM was able to convince patient to return to ED. Pt is weak, has cirrhosis, ascites and jaundice from ETOH abuse. CM encouraged patient to remain in the hospital, as he is very ill. Pt states he knows that but says can't I decide what I want to do . Pt has recently left AMA on 04/08. JANETT called Deann, who tells CM they do not have a car and she called 4-5 people, who cannot pick him up in the weather, with concerns of icing. Deann says she might be able to find someone to pick him up tomorrow.Nursing picking supervisor was in contact with Nusrat Bunch, ED Director. Decision was made to book an ambulance for transport home. Patient cannot physically get into a LYFT, if one could be arranged at 2230. Pt was placed in ED 22 holguin. Ambulance was booked by community integration specialist. Should be here in about an hour. Pt was informed by this jingle writer that this is an exception, due to the lateness of the hour, his poor health and medical conditions. Pt is aware that he will not get transportation home if he leaves AMA again. JANETT called Deann to inform her of BLS transport home and that he cannot expect transport if he signs out again.
--- NOTE | 2022-04-16 00:38 | PC.NURSE ---
This corrugator supervisor, Sue Griffin, was informed during change of shift report from outgoing corrugator supervisor Rahel Farris, that this patient, Ritesh Balderas, was going to be leaving AMA. Covering restaurant shift supervisor hospitalist Dr. Baldwin had been notified of patient's desire to leave AMA by LIGIA Hanson. Dr. Baldwin had made assessment, explained risks of leaving against medical advice, determined patient to be competent to make decision. Per LIGIA Mancilla RN patient had signed AMA form and 2 nurses had also signed. Patient had called his significant other, Deann, to pick him up and he wanted to wait in the lobby for his ride. LIGIA Mancilla was concerned because patient is non-ambulatory. This corrugator supervisor and Rahel Farris confirmed with Dr. Baldwin that patient was competent to make decision to leave and she said yes, alert and oriented . Decision was made by this corrugator supervisor to have patient wait in ED waiting room instead of lobby because lobby is unsupervised at this time of night and there have been prior falls off wheelchairs in the lobby and this patient was going to be in a wheelchair. ED kiln charger Aishwarya Salazar and clinical coordinator Paula Ruby, as well as security, was informed that patient would be waiting for ride to pick him up. This corrugator supervisor was notified by security around 9:30 pm that patients ride still had not arrived and he was behaving in a rude manner and making multiple requests to go outside and then come back in and also sliding off his wheelchair. Security stated that they had asked him who was picking him up and he said he could not remember the name or number of the person. Situation was explained to ED kiln charger and ED secretary administrative assistant Leticia Petit stated that in the last meeting ED director Nusrat José had said that ambulance could be booked to safely transport patient home, even if leaving AMA. This corrugator supervisor sent tigerconnect to Nusrat to see if this was a possibility. ED triage note stated that patient was brought to [facility] via EMS and per EMS report, patient non-ambulatory. Nusrat suggested utilizing assistance of JANETT Pham to speak to patient and assess patient and determine status of ride. This corrugator supervisor and Dawna went to speak to patient in waiting room. Patient was in ED alcove near exit doors. Patient stated that he just wants to go home. Dawna, with patient permission, called his significant other Deann. Deann stated that she could find no one to pick up operator the patient due to inclement weather. This information was relayed to Nusrat. With this information and because patient non-ambulatory, ambulance service [facility] was called to arrange transport. Transport due to arrive in 1 hour. This corrugator supervisor was contacted by ED secretary administrative assistant Leticia when [facility] arrived. This corrugator supervisor explained situation to [facility]. Patient assisted to [facility] stretcher with 4 person assist (patient unable to assist at all).
--- NOTE | 2022-12-10 07:21 | P.DS_ITS ---
DS: Providers Provider Date of Service: 12/10/22 Date of admission: 04/14/22 01:16 Date of discharge: 04/15/22 Primary care physician: Maren Carvajal MD Consults: 04/14/22 06:05 Consult to Nephrology Routine Consulting Provider: [facility] Reason for consultation: hyponatremia Has provider been notified: No DS: Diagnosis Discharge Diagnosis (1) Toxic metabolic encephalopathy: Status: Resolved (2) Hyperammonemia: Status: Resolved (3) Hyponatremia: Status: Acute DS: Summary Hospital Course Hospital Course: [age] year old male with past medical history of diabetes, hypertension, liver cirrhosis, alcohol abuse, as well as hypervolemic hyponatremia in the sett ing of hepatic liver cirrhosis presents to the hospital with complaints of generalized weakness and confusion. Patient is very agitated, frustrated, really cooperative with history. He is alert oriented x3, states that his girlfriend called EMS cuts he has not been feeling well. He reports that he has not slept for 2 days, reports that he has been taking lactulose may be once a day I do not know , and responds i dont know' when I asked him about bowel movements. He reports no chest pain, no abdominal pain, no fever or chills, no nausea or vomiting, no diarrhea constipation, no urinary symptoms and no lower extremity edema. He denies any fever or chills. And just states that he is generally not well. On arrival to the ED patient had a temperature of 98.6 degrees, heart rate of 1 10, respiratory rate of 16 and 2/50 blood pressure, 100% on room air Labs are significant for WBC count of 9.1, hemoglobin of 9.8 which is around his baseline, hematocrit 27.9, MCV of 100.9, PT of 23.3, INR of 2.0, sodium of 128 which is similar to his most recent, lactic acid of 2.7 that increased 3.1, total bili of 3.7 which is slightly better than his most recent, ammonia of 79 which is increased, UA positive for leukocyte Estrace and trace WBC, COVID-19 negative, n Chest x-ray shows elevated right hemidiaphragm, no gross bony abnormality.(Of note patient was discharged from the hospital on 118 after being treated for altered mental status secondary to hepatic encephalopathy hyperkalemia and hyponatremia. He left against medical advice on 04/08.) Hospital Course Admitted to telemetry. Lactulose prescribed 30 mg b.i.d. for goal 2-3 stools a day. Patient was noncompliant with lactulose taking only variable doses. Over the course of the next 48 hours his mental status improved. On the evening of 04/15/2022 patient became adamant about leaving the hospital. He was seen by night float and risks were explained however he still opted to sign out AMA. He was encouraged to be compliant with his lactulose. Girlfriend transported patient home Time Spent with Patient Time attestation: Total time managing care of this patient today ____ minutes. Discharge coordination time: Greater than 30 minutes Quality: Safe Use of Opioids Does Pt have an Active Cancer Diagnosis on the Problem List?: No Quality: Stroke Does the patient have a stroke diagnosis?: No Physical Exam Vital Signs: Vital Signs: Last Vital Signs Temp 98.3 F 04/15/22 19:46 Pulse 110 H 04/15/22 19:46 Resp 18 04/15/22 19:46 BP 101/65 04/15/22 19:46 Pulse Ox 100 04/15/22 19:46 O2 Del Method Room Air 04/15/22 19:46 BMI result Body Mass Index 27.4 Const: Other: No acute issues Resp: Other: Clear to auscultation bilaterally no rales rhonchi or wheezes Cardio: Other: No S4; positive S1-S2; no S3 murmurs rubs or gallops Neuro: Other: Cranial nerves 2-12 grossly intact as tested motor 5/5 all extremities sensation intact DS: Data Data Completed and Pending Completed studies during hospitalization [Text1]: Procedures Detoxification Services for Substance Abuse Treatment (04/23/22) Drainage of Peritoneal Cavity, Percutaneous Approach (05/20/22) Insertion of Infusion Device into Left Brachial Vein, Percutaneous Approach (04/23/22) Insertion of Infusion Device into Superior Vena Cava, Percutaneous Approach (07/20/22) Introduction of Mineral-based Topical Hemostatic Agent into Upper GI, Via Natural or Artificial Opening Endoscopic, [employer] 6 (07/20/22) Introduction of Other Therapeutic Substance into Upper GI, Via Natural or Artificial Opening Endoscopic (07/20/22) Introduction of Vasopressor into Peripheral Vein, Percutaneous Approach (07/20/22) Transfusion of Nonautologous Frozen Plasma into Peripheral Vein, Percutaneous Approach (07/20/22) Transfusion of Nonautologous Plasma Cryoprecipitate into Peripheral Vein, Percutaneous Approach (07/20/22) Transfusion of Nonautologous Platelets into Peripheral Vein, Percutaneous Approach (07/20/22) Transfusion of Nonautologous Red Blood Cells into Peripheral Vein, Percutaneous Approach (07/20/22) Ultrasonography of Left Upper Extremity Veins, Guidance (04/23/22) Ultrasonography of Superior Vena Cava, Guidance (07/20/22) Discharge Plan Discharge Patient Disposition: Left Against Medical Advice Discharge Diagnosis: Hepatic Encephalopathy Referrals: Maren Carvajal MD [Primary Care Provider] - 1 Week Discharge Medications: Continued folic acid 1 mg tablet 1 mg PO DAILY Qty: 90 2RF thiamine HCl (vitamin B1) 100 mg tablet 100 mg PO DAILY Qty: 90 2RF sodium chloride 1,000 mg tablet,soluble 1,000 mg PO DAILY Qty: 30 0RF lactulose 10 gram/15 mL solution 30 ml PO BID Qty: 473 2RF insulin lispro 100 unit/mL Insulin Pen 0 sliding scale dose SUBCUT TIDAC Protocol: Insulin Correction Scale Less than or equal to 110 ---- Give (units): 0 111 to 150 Give (units): 0 151 to 200 Give (units): 2 201 to 250 Give (units): 4 251 to 300 Give (units): 6 301 to 350 Give (units): 8 Greater than 350 Give (units): 10 Call MD if Blood Glucose > : 350 Xifaxan 550 mg Tablet 550 mg PO BID Qty: 60 0RF furosemide 20 mg Tablet 20 mg PO DAILY Qty: 30 0RF Protocol: Hold for SBP< HOLD for SBP < : 90 metformin 1,000 mg tablet 1 tab PO BIDAC omeprazole 20 mg capsule,delayed release(DR/EC) 20 mg PO DAILY@0630 melatonin 3 mg Tablet 6 mg PO BEDTIME midodrine 5 mg tablet 5 mg PO TID@0900,1300,1700 Rx Instructions: do not give last dose of day after 6PM or within 4 hrs of bedtime Discharge Orders: Discharge Order (Routine); Ordered 12/10/22 Ordered By: Yosef Falcon Diet: Advance to usual diet Activity on Discharge: As tolerated Care Plan Goals: AMA Health Concerns: AMA Plan of Treatment: AMA Assessment: AMA Discharge Date/Time: 04/15/22 22:44
== END 2022-04-15 22:44 | disposition left against medical advice (07) | DRG 441 ==
LOC: HO.ED 04-14 01:22 → HO.EDOVER 04-14 01:23 → HO.IMC 04-14 03:40
PROVIDERS: Admitting Provider Internal Medicine; Emergency Provider Emergency Medicine; PCP Internal Medicine; Visit Provider Hospitalist
DX: K76.82 Hepatic encephalopathy (principal); G92.8 Other toxic encephalopathy; E87.1 Hypo-osmolality and hyponatremia; N39.0 Urinary tract infection, site not specified; E72.20 Disorder of urea cycle metabolism, unspecified; E87.20 Acidosis, unspecified; E86.0 Dehydration; K70.30 Alcoholic cirrhosis of liver without ascites; E88.09 Other disorders of plasma-protein metabolism, not elsewhere classified; F10.11 Alcohol abuse, in remission; D50.9 Iron deficiency anemia, unspecified; E87.70 Fluid overload, unspecified; E11.9 Type 2 diabetes mellitus without complications; Z20.822 Contact with and (suspected) exposure to COVID-19; Z88.5 Allergy status to narcotic agent; Z88.6 Allergy status to analgesic agent; Z79.84 Long term (current) use of oral hypoglycemic drugs; Z79.899 Other long term (current) drug therapy
CPT/HCPCS: 36415; 71045; 80053; 81001; 82140; 82947; 83605; 83735; 85025; 85610; 87040; 87086; 87635; 96360; 99285; J0696; J1650

== ENCOUNTER → 2022-04-14 01:16 | Outpatient (BNV) | payer OTHER, SELFPAY | PROVIDERS: Admitting Provider Internal Medicine; Emergency Provider Emergency Medicine; PCP Internal Medicine; Visit Provider Hospitalist | DX: G92.8 Other toxic encephalopathy (principal); E72.20 Disorder of urea cycle metabolism, unspecified; E87.1 Hypo-osmolality and hyponatremia; Z53.21 Procedure and treatment not carried out due to patient leaving prior to being seen by health care provider | CPT/HCPCS: 99239 ==

== ENCOUNTER 2022-04-23 13:51 | Inpatient (IN) | payer OTHER, MEDICAID, SELFPAY ==
[2022-04-23] VITALS (11 sets, daily range): BP systolic 82–112; BP diastolic 49–74; PULSE 100–114; RESP 16–22; TEMP 36–36.6; O2SAT 97–100; BMI 29.2
--- NOTE | ~2022-04-23 | XR_ITS ---
EXAMINATION: XR CHEST CLINICAL INFORMATION: Cough. COMPARISON: Chest radiograph 04/13/2022. TECHNIQUE: Frontal view of the chest was obtained. FINDINGS: Stable asymmetric elevation of the right hemidiaphragm. No focal infiltrate, pleural effusion or pneumothorax. Unchanged appearance of the cardiomediastinal silhouette. EKG wires overlie the chest. No acute osseous abnormalities. Degenerative osteoarthritis in the shoulders. XR/XR chest 1V IMPRESSION: 1. No acute cardiopulmonary findings. 2. Stable asymmetric elevation of the right hemidiaphragm.
--- NOTE | ~2022-04-23 | US_ITS ---
EXAMINATION: ULTRASOUND-GUIDED PARACENTESIS CLINICAL INFORMATION: Symptomatic ascites COMPARISON: CT abdomen and pelvis with IV contrast 04/23/2022 TECHNIQUE: Following explaining ultrasound-guided paracentesis procedure, benefits and risk, a written consent was obtained. Patient was placed supine on ultrasound stretcher and preliminary ultrasound imaging was obtained. An optimal site was selected along the left lower quadrant and marked. The marked site was cleaned and draped in usual sterile manner. 1% lidocaine was injected at puncture site. Through a small skin incision a 5 [place] Yueh catheter was advanced through the skin incision into the peritoneal space. After observing fluid return catheter was connected to clinic in caliber. A few sometime no fluid could be drawn from the left lower quadrant. The right lower quadrant was prepped and draped and 1% lidocaine was injected. Through a small skin incision a 5 [place] Yueh catheter was advanced into the right lower quadrant. After observing fluid return catheter was withdrawn and connected to vacuum bottle via connecting cannula. After obtaining almost all fluid and observing normal fluid return, catheter was removed and complete stasis hemostasis achieved at puncture site. Patient tolerated procedure extremely well. FINDINGS: On preliminary ultrasound imaging there is a large amount of free fluid in the peritoneal cavity. Approximately 7.7 L of clear katerin-colored fluid was drained from the left lower quadrant and the right lower quadrant. None of this fluid was sent to lab. US/US paracentesis abd w/image IMPRESSION: Successful ultrasound-guided therapeutic paracentesis performed without immediate complications.
--- NOTE | ~2022-04-23 | US_ITS ---
EXAMINATION: US-GUIDED PARACENTESIS CLINICAL INFORMATION: Ascites COMPARISON: None TECHNIQUE: Following explaining ultrasound-guided paracentesis procedure, benefits and risk, a written consent was obtained. Patient was placed supine on ultrasound stretcher and preliminary ultrasound imaging was obtained through the abdomen. An optimal site was selected along the right lower quadrant and left lower quadrant, marked, cleaned and draped in the usual sterile manner. 1% lidocaine was administered at puncture site. Through a small skin incision, a 4 [place] [facility] catheter was advanced into the peritoneal space. After observing fluid return, stylet was withdrawn and catheter connected to a vacuum bottle via connecting cannula. After obtaining all fluid and observing no more fluid return, catheter was withdrawn and complete hemostasis achieved at puncture site. Patient tolerated procedure extremely well. FINDINGS: On preliminary ultrasound imaging, there is moderate free fluid in the pelvis. Approximately 3.9 L of dark yellowish fluid was drained from the right lower quadrant and subsequently left lower quadrant due to patient's left decubitus position and refusing to lie supine. None of this fluid was sent to lab. US/US paracentesis abd w/image IMPRESSION: Successful therapeutic ultrasound-guided paracentesis performed without immediate complications.
--- NOTE | ~2022-04-23 | XR_ITS ---
EXAMINATION: XR CHEST CLINICAL INFORMATION: Cough. COMPARISON: Multiple priors, most recent chest radiograph dated 04/23/2022. TECHNIQUE: Frontal view of the chest was obtained. FINDINGS: Elevation the right hemidiaphragm is unchanged. No new airspace consolidation. No pleural effusion or pneumothorax. Stable cardiomediastinal silhouette. XR/XR chest 1V IMPRESSION: No acute cardiopulmonary findings.
--- NOTE | ~2022-04-23 | CT_ITS ---
EXAMINATION: CT ABDOMEN AND PELVIS WITH CONTRAST CLINICAL INFORMATION: Abdominal pain, history of liver disease. COMPARISON: Abdominal ultrasound 04/04/2022. CT abdomen/pelvis 12/23/2021. TECHNIQUE: Multidetector volumetric images were obtained from the superior aspect of the liver through the pubic symphysis following administration 85 mL of Omnipaque 350 intravenous contrast. Sagittal and coronal reformatted images were obtained on the technologist's workstation. Oral contrast: No This CT examination was performed using dose optimization techniques as appropriate, variously including the following: *Automated exposure control *Adjustment of mA and/or kV according to patient size (this includes techniques or standardized protocols for targeted exams where dose is matched to indication/reason for exam; i.e. extremities or head) *Use of iterative reconstruction technique DLP: 135 mGy-cm FINDINGS: LUNG BASES: Asymmetric elevation of the right hemidiaphragm with compressive atelectasis of the right lower lobe and right middle lobe. Symmetric gynecomastia. Partially imaged coronary artery calcifications. LIVER, GALLBLADDER, AND BILIARY TREE: Cirrhotic liver morphology. No focal liver lesion, however evaluation of HCC is nondiagnostic in the absence of an arterial postcontrast phase. Cholelithiasis with no significant wall thickening. Pericholecystic free fluid is nonspecific in the setting of ascites. No biliary ductal dilatation. PANCREAS: Unremarkable. SPLEEN: Mild splenomegaly measuring 13 cm craniocaudally. No focal lesion. ADRENAL GLANDS: Unremarkable. KIDNEYS AND URETERS: Punctate nonobstructive calculus in the upper left kidney. Symmetric nephrograms. No hydronephrosis. BLADDER: Unremarkable. GASTROINTESTINAL TRACT: The stomach and the small bowel are nondilated. No evidence of bowel obstruction. Limited evaluation of pericolonic inflammatory changes in view of large volume of ascites Moderate amount of stool content throughout the colon and rectum. ABDOMINAL WALL: Large volume of ascites. Abdominal rectus muscle diastases. Mid abdominal wall hernia containing ascitic fluid. Fat-containing inguinal hernias. LYMPH NODES: Limited evaluation of mesenteric lymphadenopathy due to large volume of ascites. No acutely enlarged retroperitoneal or pelvic lymph nodes. VASCULAR: Extensive periesophageal and perigastric varices with a recanalized umbilical vein sequela of portal hypertension. The main portal vein is patent. The abdominal aorta is of normal diameter. PELVIC VISCERA: Unremarkable. OSSEOUS STRUCTURES: No acute or aggressive appearing osseous abnormalities. Degenerative changes of the spine. Unchanged anterolisthesis of L5 on S1 with bilateral L5 pars defects. CT/CT abdomen pelvis w IV con IMPRESSION: Cirrhotic liver with portal hypertension and large volume of ascites. No discrete focal liver lesions, though evaluation for HCC is nondiagnostic in the absence of a postcontrast arterial phase. Nonobstructive left-sided renal calculus. No evidence of bowel obstruction. Moderate degree of colonic and rectal stool contrast and suggesting constipation.
--- NOTE | 2022-04-23 15:39 | PC.NURSE ---
pt refusing blood drawn and IV at this time, will re-attempt at a later time
--- NOTE | 2022-04-23 16:07 | ED.GENADULT ---
HPI - General Adult General Chief complaint: Abdominal Pain Stated complaint: Abd pain Time Seen by Provider: 04/23/22 16:00 Source: patient Limitations: no limitations History of Present Illness HPI narrative: This is a 56 years old patient with the in the stage liver disease presented to the emergency department with chief complaint of generalized weakness, abdominal pain, he states that these a week can walk. Denies any vomiting or diarrhea denies any fever Onset (ago): day(s) (2) Radiation: non-radiation Severity: moderate Quality: burning Pain Consistency: constant Relieving factors: none Exacerbating factors: none Associated symptoms: denies other symptoms Related Data Home Medications Medication Instructions Recorded Confirmed lactulose 10 gram/15 mL oral 30 ml PO BID 03/17/22 04/23/22 solution omeprazole 20 mg capsule,delayed 1 cap PO DAILY 03/17/22 04/23/22 release insulin lispro 100 unit/mL 0 sliding scale dose subcut TIDAC 04/03/22 04/23/22 subcutaneous pen magnesium oxide 400 mg PO BID 04/03/22 04/23/22 Previous Rx's Medication Instructions Recorded folic acid 1 mg tablet 1 mg PO DAILY #90 tabs 03/05/22 metformin 1,000 mg tablet 1,000 mg PO BID #60 tabs 03/05/22 thiamine HCl (vitamin B1) 100 mg 100 mg PO DAILY #90 tabs 03/05/22 tablet sodium chloride 1,000 mg soluble 1,000 mg PO DAILY #30 tabs 03/22/22 tablet furosemide 20 mg tablet 20 mg PO DAILY #30 tabs 04/08/22 rifaximin 550 mg tablet (Xifaxan) 550 mg PO BID #60 tabs 04/08/22 spironolactone 25 mg tablet 25 mg PO DAILY #30 tabs 04/08/22 Allergies Allergy/AdvReac Type Severity Reaction Status Date / Time acetaminophen [From PERCOCET] Allergy Severe AGITATION Verified 04/13/22 18:14 oxycodone [From PERCOCET] Allergy Severe AGITATION Verified 04/13/22 18:14 bee pollen [Bee Stings] Allergy Mild SWELLING Verified 04/13/22 18:14 lorazepam AdvReac Unknown AGITATION Verified 04/13/22 18:14 Review of Systems Constitutional: Constitutional: Reports no additional constitutional complaints ENT: Reports system reviewed and no additional complaints, except as documented Cardiovascular: Cardiovascular: Reports no additional cardiovascular complaints Respiratory: Respiratory: Reports no additional respiratory complaints Gastrointestinal: Gastrointestinal: Reports abdominal pain Psychiatric: Psychiatric: Reports no additional psychiatric complaints [facility] Past Medical History Attestation statement: The following information was validated with the patient. Medical History (Updated 04/23/22 @ 21:25 by LESLEE Wolfe) SAUL (acute kidney injury) SAUL (acute kidney injury) Alcohol abuse Alcoholic cirrhosis Ascites Diabetes Elevated liver enzymes Hypertension Hyponatremia Liver cirrhosis Pressure ulcer Withdrawal seizures Surgical History No pertinent past surgical history Family History Family History Other No family history of coronary artery disease Social History Social History Household Members: Unknown / Unable to assess Housing: Care Home Do you presently have visiting nurse or other home services: Yes Unable to assess alcohol history related to: Refusing to respond Alcohol intake: former Patient Tobacco Use Status: Never used Tobacco Tobacco use type: Smokeless Tobacco Second Hand Smoke Exposure: No Advance Directives: Yes Advance Directives on File: Yes Advance Directives Date on File: 03/18/22 Nutrition Risks: No Nutritional Risk service: Yes Current occupational status: unemployed Physical Exam ED Vital Signs: Vital Signs - 24 hr 04/23/22 14:13 04/23/22 16:39 04/23/22 17:29 Temperature 98 F Pulse Rate 100 101 H 109 H Respiratory Rate 22 H 22 H 18 Blood Pressure 92/51 L 87/49 L 84/54 L Pulse Oximetry 100 100 100 Oxygen Delivery Method Room Air Room Air Room Air 04/23/22 17:42 04/23/22 18:34 04/23/22 18:44 Temperature 96.9 F Pulse Rate 108 H 106 H 111 H Respiratory Rate 21 H 20 18 Blood Pressure 82/50 L 106/69 98/70 Pulse Oximetry 100 98 100 Oxygen Delivery Method Room Air Room Air Room Air 04/23/22 19:14 04/23/22 19:33 04/23/22 19:49 Temperature 97.4 F Pulse Rate 112 H 114 H 113 H Respiratory Rate 18 18 16 Blood Pressure 100/69 107/73 104/71 Pulse Oximetry 100 100 97 Oxygen Delivery Method Room Air Room Air Room Air BMI result Body Mass Index 29.2 Const General: cooperative and other (Chronic ill appearing) Nutritional Appearance: cachectic Orientation/consciousness: patient oriented x3 Limitations: no limitations HENMT Head: Yes normal to inspection General nose exam: Normal external nose present Face and sinus: Yes normal facial exam Neck Neck: Yes normal visual inspection and Yes full ROM Chest Chest palpation & inspection: normal inspection of the chest Resp Effort & Inspection: able to speak in complete sentences Auscultation: clear to auscultation bilaterally Cardio Rate: regular rate Rhythm: regular rhythm GI Other: Ascites is present on examination of the abdomen with some tenderness Palpation (GI): Tenderness to palpation present (GI) Neuro General: patient oriented x3 Course Reevaluation(s) Reevaluation #1: Blood pressure noted, blood culture done, lactic acid was noted as well however pt has liver disease and lactic acid could be explained from this as well,regardless antibiotic administred and 2 liter of fluids ordered,his lean body weight is 70 Kg and got 2 liter plus 100 of fluids with zosyn puls albumin Reevaluation #2: Pt doing better BP better,Lungs clesr ,Cor RRR,Abdomen ascites present,mental status clear sensorium ,skin good capillary refill Time: 19:50 Reevaluation #3: BP 112/74 remain normotensive improving Time: 22:35 Medications Administered Generic Name Dose Route Start Last Admin Trade Name Freq PRN Reason Stop Dose Admin Enoxaparin Sodium 40 mg 04/23/22 20:45 04/23/22 20:57 Enoxaparin Sodium 40 Mg/0.4 Ml Syringe SUBCUT 40 mg Q24H LEO Administration Albumin Human 50 mls @ 100 mls/hr 04/23/22 19:45 04/23/22 21:37 Kedbumin 25 % IV 04/23/22 23:14 100 mls/hr Q1H LEO Administration Discontinued Medications Generic Name Dose Route Start Last Admin Trade Name Freq PRN Reason Stop Dose Admin Sodium Chloride 1,000 mls @ 999 mls/hr 04/23/22 16:15 04/23/22 17:39 Ns IVCONT 04/23/22 17:15 Infused .Q1H1M LEO Infusion Piperacillin Sod/Tazobactam 100 mls @ 200 mls/hr 04/23/22 16:59 04/23/22 18:11 Sod 4.5 gm/ Sodium Chloride IV 04/23/22 17:28 Infused ONCE ONE Infusion Sodium Chloride 1,000 mls @ 999 mls/hr 04/23/22 17:45 04/23/22 19:29 Ns IVCONT 04/23/22 18:45 Infused .Q1H1M LEO Infusion Sodium Chloride 1,000 mls @ 999 mls/hr 04/23/22 17:45 04/23/22 19:29 Ns IVCONT 04/23/22 18:45 Infused .Q1H1M LEO Infusion Magnesium Sulfate/Dextrose 1 gm in 100 mls @ 100 mls/hr 04/23/22 17:48 04/23/22 20:34 Magnesium Sulfate/D5w IV 04/23/22 18:47 Infused ONCE ONE Infusion Albumin Human 100 mls @ 100 mls/hr 04/23/22 18:45 04/23/22 19:49 Kedbumin 25 % IV 04/23/22 20:44 Not Given Q1H LEO Albumin Human 100 mls @ 100 mls/hr 04/23/22 19:30 04/23/22 20:59 Kedbumin 25 % IV 04/23/22 21:29 Not Given Q1H LEO Sodium Chloride 1,000 mls @ 999 mls/hr 04/23/22 20:45 04/23/22 20:59 Ns IVCONT 04/23/22 21:45 999 mls/hr .Q1H1M LEO Administration Iohexol 100 ml 04/23/22 18:24 04/23/22 18:25 Iohexol 350 Mg/Ml 100 Ml Infus..Btl IV 04/23/22 18:25 85 ml ONCE ONE Administration Lidocaine HCl 5 ml 04/23/22 17:58 04/23/22 18:34 Lidocaine Hcl 1 % Mpf 5 Ml Vial INFILTRATI 04/23/22 17:59 5 ml ONCE ONE Administration Procedures Procedure Narrative Procedure Narrative: Diagnostic paracentesis was performed under local anesthesia under ultrasound-guided I aspirated about 100 cc of peritoneal fluid the fluid was sent for cell count culture EJ/Peripheral Line Arm L: Time Out Performed: Yes Skin Cleansed in Sterile Fashion: Yes Size (gauge): 20 IV Secured and Dressing Applied: Yes Patient Tolerated Procedure: well Additional Comments: Under ultrasound-guided cannulated the left brachial vein with 20 gauge catheter with good flash Medical Decision Making Medical Decision Making MDM Narrative: Patient presented with abdominal pain history of ascites/end-stage liver disease will get labs, will consider a diagnostic paracentesis Differential Diagnosis Differential Diagnoses: The differential diagnosis associated with the presentation includes SBP/colitis/diverticulitis/PUD Admission/Observation Consideration of admission/observation: Escalation of care including admission/observation considered Consult Healthcare Provider Management of the patient was discussed with: Hospitalist Lab Data [facility] Lab Attestation statement: I reviewed the patient's lab results. 04/23/22 16:33 04/23/22 16:33 Labs: Lab Results 04/23/22 04/23/22 04/23/22 Range/Units 16:33 16:33 16:33 WBC 6.0 (4.8-10.8) X10*3/uL RBC 2.55 L (4.60-5.80) X10*6/uL Hgb 9.1 L (14.0-18.0) g/dl Hct 25.3 L (42.0-52.0) % MCV 99.2 H (80.0-98.0) fL MCH 35.7 H (27.0-33.0) pg MCHC 36.0 (31.0-36.0) g/dl RDW 15.2 (11.0-16.0) % Plt Count 104 L D (160-400) X10*3/uL MPV 9.6 (9.4-12.4) fL Immature Gran % (Auto) 0.5 H (0.0-0.4) % Neut % (Auto) 64.7 (45-73) % Lymph % (Auto) 19.9 L (20-40) % Austin % (Auto) 12.4 H (2-11) % Eos % (Auto) 1.5 (0-4) % Baso % (Auto) 1.0 (0-2) % Lymph # (Auto) 1.2 (1.2-4.9) X10*3/uL Austin # (Auto) 0.7 (0.1-1.2) X10*3/uL Eos # (Auto) 0.1 (0.0-0.4) X10*3/uL Baso # (Auto) 0.1 (0.0-0.2) X10*3/uL Abs Immat Gran (auto) 0.03 (0.00-0.03) X10*3/uL Absolute Neuts (auto) 3.9 (2.0-8.3) x10*3/uL Absolute Nucleated RBC 0.000 (0.0-0.012) X10*3/uL Nucleated RBC % (auto) 0.0 (0.0-0.2) /100WBC PT 21.2 H (10.0-13.1) SEC INR 1.8 H (0.9-1.1) APTT 34.9 D (26.0-36.4) SEC Sodium 132 L (135-145) mmol/L Potassium 4.4 (3.3-5.1) mmol/L Chloride 107 (96-108) mmol/L Carbon Dioxide 17 L (22-29) mmol/L Anion Gap 12 (12-20) BUN 21 H (9-16) mg/dL Creatinine 1.01 (0.5-1.4) mg/dL Estim Creat Clear Calc 83.0 Estimated GFR > 60 Random Glucose 122 H (60-115) mg/dL Lactic Acid (0.5-2.0) mmol/L Lactic Acid F/U @ 2Hr (0.5-2.0) mmol/L Calcium 8.6 (8.4-10.2) mg/dL Magnesium 1.3 L* (1.6-2.6) mg/dL Total Bilirubin 3.3 H (0.0-1.0) mg/dL Direct Bilirubin 1.0 H (0.0-0.5) mg/dL AST 35 (5-37) U/L ALT 22 (0-40) U/L Alkaline Phosphatase 165 H (39-117) U/L Ammonia (13-55) umol/L B-Natriuretic Peptide (<100) pg/mL Total Protein 5.9 L (6.5-8.0) g/dL Albumin 2.5 L (3.5-5.0) g/dL Lipase 11 (8-78) U/L Peritoneal WBC X10*3/uL Peritoneal RBC X10*6/uL Ethyl Alcohol < 10 mg/dL 04/23/22 04/23/22 04/23/22 Range/Units 16:33 16:34 18:52 WBC (4.8-10.8) X10*3/uL RBC (4.60-5.80) X10*6/uL Hgb (14.0-18.0) g/dl Hct (42.0-52.0) % MCV (80.0-98.0) fL MCH (27.0-33.0) pg MCHC (31.0-36.0) g/dl RDW (11.0-16.0) % Plt Count (160-400) X10*3/uL MPV (9.4-12.4) fL Immature Gran % (Auto) (0.0-0.4) % Neut % (Auto) (45-73) % Lymph % (Auto) (20-40) % Austin % (Auto) (2-11) % Eos % (Auto) (0-4) % Baso % (Auto) (0-2) % Lymph # (Auto) (1.2-4.9) X10*3/uL Austin # (Auto) (0.1-1.2) X10*3/uL Eos # (Auto) (0.0-0.4) X10*3/uL Baso # (Auto) (0.0-0.2) X10*3/uL Abs Immat Gran (auto) (0.00-0.03) X10*3/uL Absolute Neuts (auto) (2.0-8.3) x10*3/uL Absolute Nucleated RBC (0.0-0.012) X10*3/uL Nucleated RBC % (auto) (0.0-0.2) /100WBC PT (10.0-13.1) SEC INR (0.9-1.1) APTT (26.0-36.4) SEC Sodium (135-145) mmol/L Potassium (3.3-5.1) mmol/L Chloride (96-108) mmol/L Carbon Dioxide (22-29) mmol/L Anion Gap (12-20) BUN (9-16) mg/dL Creatinine (0.5-1.4) mg/dL Estim Creat Clear Calc Estimated GFR Random Glucose (60-115) mg/dL Lactic Acid 4.1 H* (0.5-2.0) mmol/L Lactic Acid F/U @ 2Hr (0.5-2.0) mmol/L Calcium (8.4-10.2) mg/dL Magnesium (1.6-2.6) mg/dL Total Bilirubin (0.0-1.0) mg/dL Direct Bilirubin (0.0-0.5) mg/dL AST (5-37) U/L ALT (0-40) U/L Alkaline Phosphatase (39-117) U/L Ammonia (13-55) umol/L B-Natriuretic Peptide 24 (<100) pg/mL Total Protein (6.5-8.0) g/dL Albumin (3.5-5.0) g/dL Lipase (8-78) U/L Peritoneal WBC < 0.003 X10*3/uL Peritoneal RBC < 0.002 X10*6/uL Ethyl Alcohol mg/dL 04/23/22 04/23/22 Range/Units 20:03 20:03 WBC (4.8-10.8) X10*3/uL RBC (4.60-5.80) X10*6/uL Hgb (14.0-18.0) g/dl Hct (42.0-52.0) % MCV (80.0-98.0) fL MCH (27.0-33.0) pg MCHC (31.0-36.0) g/dl RDW (11.0-16.0) % Plt Count (160-400) X10*3/uL MPV (9.4-12.4) fL Immature Gran % (Auto) (0.0-0.4) % Neut % (Auto) (45-73) % Lymph % (Auto) (20-40) % Austin % (Auto) (2-11) % Eos % (Auto) (0-4) % Baso % (Auto) (0-2) % Lymph # (Auto) (1.2-4.9) X10*3/uL Austin # (Auto) (0.1-1.2) X10*3/uL Eos # (Auto) (0.0-0.4) X10*3/uL Baso # (Auto) (0.0-0.2) X10*3/uL Abs Immat Gran (auto) (0.00-0.03) X10*3/uL Absolute Neuts (auto) (2.0-8.3) x10*3/uL Absolute Nucleated RBC (0.0-0.012) X10*3/uL Nucleated RBC % (auto) (0.0-0.2) /100WBC PT (10.0-13.1) SEC INR (0.9-1.1) APTT (26.0-36.4) SEC Sodium (135-145) mmol/L Potassium (3.3-5.1) mmol/L Chloride (96-108) mmol/L Carbon Dioxide (22-29) mmol/L Anion Gap (12-20) BUN (9-16) mg/dL Creatinine (0.5-1.4) mg/dL Estim Creat Clear Calc Estimated GFR Random Glucose (60-115) mg/dL Lactic Acid (0.5-2.0) mmol/L Lactic Acid F/U @ 2Hr 6.1 H* (0.5-2.0) mmol/L Calcium (8.4-10.2) mg/dL Magnesium (1.6-2.6) mg/dL Total Bilirubin (0.0-1.0) mg/dL Direct Bilirubin (0.0-0.5) mg/dL AST (5-37) U/L ALT (0-40) U/L Alkaline Phosphatase (39-117) U/L Ammonia 117 H (13-55) umol/L B-Natriuretic Peptide (<100) pg/mL Total Protein (6.5-8.0) g/dL Albumin (3.5-5.0) g/dL Lipase (8-78) U/L Peritoneal WBC X10*3/uL Peritoneal RBC X10*6/uL Ethyl Alcohol mg/dL Radiology Impression Discussion of test interpretation with radiology: I have reviewed the radiologist's reading. Radiologist Impression: [address] [address] [address] Scan Report Signed Patient: Ritesh Balderas MR#: [id number] : 1965 Acct:[id number] Age/Sex: 56 / M ADM Date: 04/23/22 Loc: HO.ED Attending Dr: Ordering Physician: Mario Edwards MD Date of Service: 04/23/22 Procedure(s): CT abdomen pelvis w IV con Accession Number(s): [id number] cc: Mario Edwards MD~ EXAMINATION: CT ABDOMEN AND PELVIS WITH CONTRAST? CLINICAL INFORMATION: Abdominal pain, history of liver disease.? COMPARISON: Abdominal ultrasound 04/04/2022. CT abdomen/pelvis 12/23/2021.? TECHNIQUE: Multidetector volumetric images were obtained from the superior aspect of the liver through the pubic symphysis following administration 85 mL of Omnipaque 350 intravenous contrast. Sagittal and coronal reformatted images were obtained on the technologist's workstation.? Oral contrast: No This CT examination was performed using dose optimization techniques as appropriate, variously including the following: *Automated exposure control *Adjustment of mA and/or kV according to patient size (this includes techniques or standardized protocols for targeted exams where dose is matched to indication/reason for exam; i.e. extremities or head) *Use of iterative reconstruction technique DLP: 135 mGy-cm FINDINGS: LUNG BASES: Asymmetric elevation of the right hemidiaphragm with compressive atelectasis of the right lower lobe and right middle lobe. Symmetric gynecomastia. Partially imaged coronary artery calcifications.? LIVER, GALLBLADDER, AND BILIARY TREE: Cirrhotic liver morphology. No focal liver lesion, however evaluation of HCC is nondiagnostic in the absence of an arterial postcontrast phase. Cholelithiasis with no significant wall thickening. Pericholecystic free fluid is nonspecific in the setting of ascites. No biliary ductal dilatation. PANCREAS: Unremarkable.? SPLEEN: Mild splenomegaly measuring 13 cm craniocaudally. No focal lesion.? ADRENAL GLANDS: Unremarkable.? KIDNEYS AND URETERS: Punctate nonobstructive calculus in the upper left kidney. Symmetric nephrograms. No hydronephrosis.? BLADDER: Unremarkable.? GASTROINTESTINAL TRACT: The stomach and the small bowel are nondilated. No evidence of bowel obstruction. Limited evaluation of pericolonic inflammatory changes in view of large volume of ascites Moderate amount of stool content throughout the colon and rectum.? ABDOMINAL WALL: Large volume of ascites. Abdominal rectus muscle diastases. Mid abdominal wall hernia containing ascitic fluid. Fat-containing inguinal hernias.? LYMPH NODES: Limited evaluation of mesenteric lymphadenopathy due to large volume of ascites. No acutely enlarged retroperitoneal or pelvic lymph nodes. VASCULAR: Extensive periesophageal and perigastric varices with a recanalized umbilical vein sequela of portal hypertension. The main portal vein is patent. The abdominal aorta is of normal diameter. PELVIC VISCERA: Unremarkable.? OSSEOUS STRUCTURES: No acute or aggressive appearing osseous abnormalities. Degenerative changes of the spine. Unchanged anterolisthesis of L5 on S1 with bilateral L5 pars defects.? CT/CT abdomen pelvis w IV con IMPRESSION: Cirrhotic liver with portal hypertension and large volume of ascites. No discrete focal liver lesions, though evaluation for HCC is nondiagnostic in the absence of a postcontrast arterial phase. ? Nonobstructive left-sided renal calculus. ? No evidence of bowel obstruction. Moderate degree of colonic and rectal stool contrast and suggesting constipation. Dictated By: Asmita Patino Signed By: <Electronically signed by? External Record Review External record reviewed: Inpatient record Chronic Conditions Patient?s care impacted by: Other (end stage liver disease) Discharge Plan Discharge Clinical Impression: Abdominal pain, Lactic acidosis Patient Disposition: Admitted As Inpatient Sepsis Bolus Exclusion Sepsis Bolus Exclusion CHF/Renal Failure This patient met severe sepsis criteria due to the following condition(s):: Hypotension and Lactate>=4mmol/L In my clinical judgement the administration of 30 ml/kg of crystalloid would be detrimental to this patient due to the patient's following conditions:: Concern for fluid overload and Other (Pt patient has fluid overload indicated by massive ascites) Replace the 30 mls/kg with (*zero amount not acceptable): Crystalloids amount given in mls: (rate must be at least 150cc/hr): 1,000 Colloids amount given in mls:: 0
[2022-04-23] MEDS: 0.9 % Sodium Chloride 1,000 ML 999 ML IVCONT ×4 (16:37→20:59)
[2022-04-23 16:39] LABS: MANUAL DIFF FLAG NO
[2022-04-23 16:40] LABS: Basophils Absolute Auto 0.1 X10*3/uL (0.0-0.2); Eosinophils Absolute Auto 0.1 X10*3/uL (0.0-0.4); Eosinophils Percent Auto 1.5 % (0-4); Hematocrit 25.3 % (42.0-52.0); Hemoglobin 9.1 g/dl (14.0-18.0); Imm Gran Abs Auto 0.03 X10*3/uL (0.00-0.03); Imm Gran Pct Auto 0.5 % (0.0-0.4); Lymphocytes Absolute Auto 1.2 X10*3/uL (1.2-4.9); Lymphocytes Percent Auto 19.9 % (20-40); Mean Corpuscular Hemoglobin 35.7 pg (27.0-33.0); Mean Corpuscular Volume 99.2 fL (80.0-98.0); Mean Platelet Volume 9.6 fL (9.4-12.4); Monocytes Absolute Auto 0.7 X10*3/uL (0.1-1.2); Monocytes Percent Auto 12.4 % (2-11); Neutrophils Absolute Auto 3.9 x10*3/uL (2.0-8.3); Neutrophils Percent Auto 64.7 % (45-73); Platelet Count 104 X10*3/uL (160-400); Red Blood Count 2.55 X10*6/uL (4.60-5.80); Red Cell Distribution Width 15.2 % (11.0-16.0)
[2022-04-23 16:48] LABS: INTERNATIONAL NORM RATIO 1.8 (0.9-1.1); Prothrombin Time 21.2 SEC (10.0-13.1)
[2022-04-23 16:50] LABS: Partial Thromboplastin Time 34.9 SEC (26.0-36.4)
[2022-04-23 16:57] LABS: Lactic Acid 4.1 mmol/L (0.5-2.0)
[2022-04-23 17:02] LABS: B Type Natriuretic Peptide 24 pg/mL (<100)
[2022-04-23 17:05] LABS: Alanine Aminotransferase 22 U/L (0-40); Albumin Level 2.5 g/dL (3.5-5.0); Alkaline Phosphatase 165 U/L (39-117); Anion Gap 12 (12-20); Aspartate Amino Transferase 35 U/L (5-37); Bilirubin Total 3.3 mg/dL (0.0-1.0); Blood Urea Nitrogen 21 mg/dL (9-16); Calcium 8.6 mg/dL (8.4-10.2); Carbon Dioxide 17 mmol/L (22-29); Chloride 107 mmol/L (96-108); Estimated Glomerular Filt Rate > 60; Ethanol < 10 mg/dL; Glucose Random 122 mg/dL (60-115); Lipase 11 U/L (8-78); Magnesium 1.3 mg/dL (1.6-2.6); Potassium 4.4 mmol/L (3.3-5.1); Sodium 132 mmol/L (135-145); Total Protein 5.9 g/dL (6.5-8.0)
[2022-04-23] MEDS: Piperacillin Sodium/Tazobactam 4.5 GM in 0.9 % Sodium Chloride 100 ML IV (17:25)
--- NOTE | 2022-04-23 17:39 | PC.NURSE ---
pt resting on stretcher, reports pain at this time, unable to elaborate on location of pain. Pt is difficult stick, difficulty getting all labs drawn. All labs are now complete at this time, both cultures drawn. Antibiotics have been started and fluids have been complete. Pt has been reminded multiple times to keep arm straight as to not occlude the line.
--- NOTE | 2022-04-23 18:11 | PC.NURSE ---
pt continues to be non-compliant with keeping arm straight, fluids are taking longer than expected. This RN continues to remind pt to keep arm straight. Dr. Edwards did place ultrasound guided IV line in a second location to encourage more fluid intake
[2022-04-23] MEDS: iohexoL 350 MG/ML 100 ML INFUS..BTL IV (18:25)
[2022-04-23] MEDS: Lidocaine HCl 1 % MPF 5 ML VIAL INFILTRATI (18:34)
[2022-04-23 18:37] LABS: Reflex Lactate? Lactic Acid Added
--- NOTE | 2022-04-23 19:00 | P.HPHOSP_ITS ---
History of Present Illness Date of Service: 04/23/22 Attending physician on admission: Lily Sears Chief Complaint: Stomach pain Pt is a 56-year-old male with a PMH significant for?ETOH cirrhosis, ascites, alcohol use disorder, and [id number] DM who presents to the ED after feeling off and not feeling well. Pt alert and oriented x2 (states it is Janurary 2021), but agitated and not cooperative during interview. Pt will not elaborate on how he feels off or unwell. Complains of feeling cold, but denies fever, nausea, vomiting. No abdominal pain or changes in bowel habits. Denies chest pain/pressure, palpitations. No SOB. In the ED patient was afebrile but tachycardic, tachypneic and hypertensive. Labs were significant for stable H&H of 9.1/25.3 (at baseline), platelets of 104 (at baseline), hyponatremia of 132 (at baseline), hypomagnesmia of 1.3, chronically elevated lactic acid 4.1 (near baseline), hyperbilirubinemia of 3.3 (at baseline), and elevated ammonia of 117. Peritoneal sample negative for WBCs and RBCs, other results pending. CXR showed no acute cardiopulmonary process. CT?of abdomen and pelvis found cirrhotic liver with portal hypertension and large volume of ascites, nonobstructive left-sided renal calculus, and no evidence of bowel obstruction but suggestive of constipation. Pt was treated with IVF, albumin, magnesium, and Zosyn. Pt will be admitted to the hospital for treatment of symptomatic ascites and hepatic encephalopathy. Review of Systems Review of Systems: Difficult to obtain due to patient's lack of full cooperation. Patient only complains that he ?does not feel well? and feels ?off.? Denies any other symptoms. [facility] Medical History (Updated 04/23/22 @ 21:25 by LESLEE Wolfe) SAUL (acute kidney injury) SAUL (acute kidney injury) Alcohol abuse Alcoholic cirrhosis Ascites Diabetes Elevated liver enzymes Hypertension Hyponatremia Liver cirrhosis Pressure ulcer Withdrawal seizures Family History Other No family history of coronary artery disease Surgical History No pertinent past surgical history Social History Household Members: Unknown / Unable to assess Housing: Custodial Do you presently have visiting nurse or other home services: Yes Unable to assess alcohol history related to: Refusing to respond Alcohol intake: former Patient Tobacco Use Status: Never used Tobacco Tobacco use type: Smokeless Tobacco Second Hand Smoke Exposure: No Advance Directives: Yes Advance Directives on File: Yes Advance Directives Date on File: 03/18/22 service: Yes Current occupational status: unemployed Meds Allergies Allergy/AdvReac Type Severity Reaction Status Date / Time acetaminophen [From PERCOCET] Allergy Severe AGITATION Verified 04/13/22 18:14 oxycodone [From PERCOCET] Allergy Severe AGITATION Verified 04/13/22 18:14 bee pollen [Bee Stings] Allergy Mild SWELLING Verified 04/13/22 18:14 lorazepam AdvReac Unknown AGITATION Verified 04/13/22 18:14 Active Medications: Current Medications Albumin Human (Kedbumin 25 %) 100 mls @ 100 mls/hr IV Q1H LEO Stop: 04/23/22 20:44 Home Medications Medication Instructions Recorded Confirmed Last Taken Type lactulose 10 gram/15 mL oral 30 ml PO BID 03/17/22 04/23/22 04/03/22 History solution omeprazole 20 mg capsule,delayed 1 cap PO DAILY 03/17/22 04/23/22 04/03/22 History release insulin lispro 100 unit/mL 0 sliding scale dose subcut TIDAC 04/03/22 04/23/22 04/03/22 History subcutaneous pen magnesium oxide 400 mg PO BID 04/03/22 04/23/22 04/03/22 History Physical Exam Vital Signs and Narrative: Vital Signs: Last Vital Signs Temp 96.9 F 04/23/22 18:44 Pulse 111 H 04/23/22 18:44 Resp 18 04/23/22 18:44 BP 98/70 04/23/22 18:44 Pulse Ox 100 04/23/22 18:44 O2 Del Method 04/23/22 18:44 BMI result Body Mass Index 29.2 Constitutional: Alert, disheveled, poor hygiene. Mental Status: Oriented to person, place, but not to time. Eyes: Pupils are equal, round, and reactive to light. Ear, Nose, and Throat: Oropharynx clear, mucous membranes moist. Ears and nose without deformities. Trachea midline. Respiratory: Clear to auscultation bilaterally. No wheezing, rales, or rhonchi. Cardiovascular: S1, S2 regular. No murmurs, rubs, or gallops. Gastrointestinal: Abdomen significantly distended, non-tender. Neurologic: Cranial nerves II-XII are grossly intact. No focal neurological deficits. Moves all extremities spontaneously. Skin: Large bullous lesion on heel and midfoot of right foot. Musculoskeletal: No cyanosis or clubbing. Extremities: No edema. Psychiatric: Normal mood and affect. Results Labs 04/23/22 16:33 04/23/22 16:33 Labs: Laboratory Results - last 24 hr 04/23/22 04/23/22 04/23/22 16:33 16:33 16:33 MCV 99.2 H MCH 35.7 H MCHC 36.0 RDW 15.2 Plt Count 104 L D MPV 9.6 Immature Gran % (Auto) 0.5 H Neut % (Auto) 64.7 Lymph % (Auto) 19.9 L Rincon % (Auto) 12.4 H Eos % (Auto) 1.5 Baso % (Auto) 1.0 Lymph # (Auto) 1.2 [place]incon # (Auto) 0.7 Eos # (Auto) 0.1 Baso # (Auto) 0.1 Abs Immat Gran (auto) 0.03 Absolute Neuts (auto) 3.9 Absolute Nucleated RBC 0.000 Nucleated RBC % (auto) 0.0 PT 21.2 H INR 1.8 H APTT 34.9 D Anion Gap 12 Estim Creat Clear Calc 83.0 Estimated GFR > 60 Random Glucose 122 H Lactic Acid Calcium 8.6 Magnesium 1.3 L* Total Bilirubin 3.3 H Direct Bilirubin 1.0 H AST 35 ALT 22 Alkaline Phosphatase 165 H B-Natriuretic Peptide Total Protein 5.9 L Albumin 2.5 L Lipase 11 Ethyl Alcohol < 10 04/23/22 04/23/22 16:33 16:34 MCV MCH MCHC RDW Plt Count MPV Immature Gran % (Auto) Neut % (Auto) Lymph % (Auto) Rincon % (Auto) Eos % (Auto) Baso % (Auto) Lymph # (Auto) Rincon # (Auto) Eos # (Auto) Baso # (Auto) Abs Immat Gran (auto) Absolute Neuts (auto) Absolute Nucleated RBC Nucleated RBC % (auto) PT INR APTT Anion Gap Estim Creat Clear Calc Estimated GFR Random Glucose Lactic Acid 4.1 H* Calcium Magnesium Total Bilirubin Direct Bilirubin AST ALT Alkaline Phosphatase B-Natriuretic Peptide 24 Total Protein Albumin Lipase Ethyl Alcohol Imaging Radiologist's Impressions: Impressions Chest X-Ray 04/23/22 16:50 IMPRESSION: 1. No acute cardiopulmonary findings. 2. Stable asymmetric elevation of the right hemidiaphragm. Abdomen/Pelvis CT 04/23/22 18:41 IMPRESSION: Cirrhotic liver with portal hypertension and large volume of ascites. No discrete focal liver lesions, though evaluation for HCC is nondiagnostic in the absence of a postcontrast arterial phase. Nonobstructive left-sided renal calculus. No evidence of bowel obstruction. Moderate degree of colonic and rectal stool contrast and suggesting constipation. Assessment and Plan (1) Hyperammonemia: Status: Acute Plan Pt is a 56-year-old male with a PMH significant for?ETOH cirrhosis, ascites, alcohol use disorder, and vmx-balhelq-fnbtvfzks DM who presents to the ED after feeling off and not feeling well. Pt will require a hospitalization of at least two nights for treatment of?ascites and hepatic encephalopathy with paracentesis. Ascites Secondary to liver cirrhosis No WBC or RBC in peritoneal fluid, other results pending Therapeutic paracentesis Folow cultures Hepatic encephalopathy in the setting of liver cirrhosis Pt lucid, alert, uncooperative, likely noncompliant with lactulose at home Ammonia elevated at 117 Patient tachycardic and tachypneic, likely secondary to cirrhosis and ascites, not sepsis Lactulose 30mg with a goal of 2-3 BM per day Continue furosemide, spironolactone, rifaximin Monitor mentation Follow labs Hyponatremia Patient's sodium 132 at time of presentation Stable, at baseline Likely secondary to hypovolemic hyponatremia in the setting of liver disease Patient was being followed by nephrology who recommended against uremia, limiting hypotonic solutions, and continue furosemide and spironolactone Continue the previous recommendation Monitor labs Hypomagnesemia Magnesium of 1.3 at time of presentation Patient given 1 g of magnesium in the ED Monitor labs Lactic acidosis Chronic, at baseline at 4.1 Secondary to liver disease, not sepsis Hyperbilirubinemia Total bilirubin 3.3, stable at baseline Monitor Non insulin-dependent DM2 Hold metformin SSI Full Code Attending:?Dr. Orion DVT Prophylaxis: Lovenox Pt will require a hospitalization of at least two nights for treatment of?a scites and hepatic encephalopathy with paracentesis. Time Spent With Patient Time: Total time managing care of this patient today ____ minutes. Quality Stroke Does the patient have a stroke diagnosis?: No VTE Prior VTE?: No VTE Risk Level:: Medical - moderate - high VTE Device Contraindication: Treatment Not Indicated VTE Drug Contraindication: N/A - Med Ordered
--- NOTE | 2022-04-23 19:11 | PHA.MEDREC ---
Pharmacy Consult ? Medication Reconciliation Pharmacy has completed the medication reconciliation. Patient had recent admission
[2022-04-23] MEDS: Magnesium Sulfate/D5W 1 GM/100 ML PIGGYBACK IV (19:30)
[2022-04-23 19:57] LABS: RBC Peritoneal Fluid < 0.002 X10*6/uL; WBC Peritoneal Fluid < 0.003 X10*3/uL
[2022-04-23 20:19] LABS: BF Shift QC OK YES; Man Diluent Bkgrd OK YES
[2022-04-23 20:43] LABS: ~Lactic Acid-LAB USE ONLY 6.1 mmol/L (0.5-2.0)
[2022-04-23] MEDS: Albumin Human 25 % 50 ML 100 ML IV ×3 (20:43→21:37)
[2022-04-23 20:53] LABS: Ammonia 117 umol/L (13-55)
[2022-04-23] MEDS: Enoxaparin Sodium 40 MG/0.4 ML SYRINGE SUBCUT (20:57)
[2022-04-23 22:07] LABS: Reflex Lactate? 2 Y
--- NOTE | 2022-04-23 23:10 | PC.NURSE ---
this RN went in to room with JOANNE Flanagan to take rectal temperature. Pt was agreeable to rectal temperature however, when this RN asked pt to roll so we could boost him up, pt began cussing stating you stupid nurse don't know what the fuck you're doing. Rolling me around for what? nothing . This RN educated pt that we were rolling him on to his back to boost him up so he could eat and drink his medicine. After boosting the patient, he began yelling stating all you people just fucking don't help, youre all assholes. Pt then proceeded to tell this RN not to go in his room again and that he would not be taking any medications. pin drafter operator aware and MD is also aware
[2022-04-23] MEDS: Lactulose 20 GM/30 ML SOLUTION 30 GM PO (23:33)
[2022-04-24] VITALS (7 sets, daily range): BP systolic 90–113; BP diastolic 55–71; PULSE 88–130; RESP 14–19; TEMP 35.9–36.9; O2SAT 97–100
--- NOTE | 2022-04-24 | ECG_ITS ---
Test Reason : tachycardia Blood Pressure : / mmHG Vent. Rate : 115 BPM Atrial Rate : 115 BPM P-R Int : 152 ms QRS Dur : 072 ms QT Int : 330 ms P-R-T Axes : 045 051 017 degrees QTc Int : 456 ms Sinus tachycardia Otherwise normal ECG When compared with ECG of 03-APR-2022 13:12, Nonspecific T wave abnormality now evident in Inferior leads Referred By: Reena Monroe Electronically Signed By:Ian Saenz
[2022-04-24 00:09] LABS: COVID-19 Test Negative (Negative); IDNOW Serial# 6674DD1D
--- NOTE | 2022-04-24 00:09 | PC.NURSE ---
alloy weigher Umberto attempted to medicate pt, educated pt on need for lactulose due to increased ammonia. Pt drank approximately 3/4 of needed amount before throwing it at [facility] Ship[facility]. MD Sears is aware
[2022-04-24] MEDS: Albumin Human 25 % 50 ML 100 ML IV (00:10)
[2022-04-24] MEDS: OLANZapine 10 MG VIAL IM (00:10)
--- NOTE | 2022-04-24 00:10 | PC.NURSE ---
This RN called pharmacy to fix medication administration record. This RN originally charted against the albumin and lactulose (oral) because pt declined. This RN was unable to undo when Umberto RN successfully administered the medications. Primitivo in pharmacy put in for one time dose of medication in order to account for charting
--- NOTE | 2022-04-24 00:50 | PC.NURSE ---
Pt resting on stretcher, sleeping at this time, VSS, respirations are even and unlabored, no apparent distress
--- NOTE | 2022-04-24 00:50 | PC.NURSE ---
late entry: this RN attempted to provide pt with sandwich and applesauce, pt threw sandwich stating this aint fucking nothing, I want food . This RN attempted to educate patient that it is food and he is welcome to eat it or this RN could get him a new sandwich, pt declined and told this RN to get the fuck out of my room
[2022-04-24 01:56] LABS: Albumin Peritoneal Fluid 0.6 GM/DL; Glucose Peritoneal Fluid 149 MG/DL; LDH Peritoneal Fluid 34 U/L; Total Protein Peritoneal Fluid 1.1 GM/DL
--- NOTE | 2022-04-24 03:11 | MHC.EDTECH ---
pt came over from ed, pt was repositioned he also had a med BM, he was cleaned up and a quik dry was applied , and a cup of cran lanre tremaine he requested
[2022-04-24] MEDS: Omeprazole 20 MG CAPSULE.DR PO (05:34)
[2022-04-24 07:06] LABS: Hematocrit 21.6 % (42.0-52.0); Mean Corpuscular HGB Conc 34.7 g/dl (31.0-36.0); Mean Corpuscular Hemoglobin 35.4 pg (27.0-33.0); Mean Corpuscular Volume 101.9 fL (80.0-98.0); Red Blood Count 2.12 X10*6/uL (4.60-5.80); Red Cell Distribution Width 15.7 % (11.0-16.0); White Blood Count 6.4 X10*3/uL (4.8-10.8)
[2022-04-24 07:08] LABS: Platelet Count 79 X10*3/uL (160-400)
[2022-04-24 07:13] LABS: Hemoglobin 7.5 g/dl (14.0-18.0)
[2022-04-24 07:29] LABS: Amylase Peritoneal Fluid 15
[2022-04-24 07:39] LABS: Glucose, Whole Blood 137 mg/dL (60-115)
[2022-04-24] MEDS: Spironolactone 25 MG TABLET PO (08:08)
[2022-04-24] MEDS: Sodium Chloride Tab 1 GM TABLET PO (08:08)
[2022-04-24] MEDS: Thiamine HCL 100 MG TABLET PO (08:09)
[2022-04-24] MEDS: 0.9 % Sodium Chloride Flush 3 ML SYRINGE IVFLUSH (08:09)
[2022-04-24] MEDS: Folic Acid 1 MG TABLET PO (08:09)
[2022-04-24] MEDS: Furosemide 20 MG TABLET PO (08:09)
[2022-04-24] MEDS: Magnesium Oxide 400 MG TABLET PO ×2 (08:19→21:16)
--- NOTE | 2022-04-24 08:43 | PC.NURSE ---
pharmacy contacted to bring Rifaxamin down to the overflow unit
[2022-04-24 09:03] LABS: ~Lactic Acid-LAB USE ONLY 2.9 mmol/L (0.5-2.0)
[2022-04-24 09:14] LABS: Anion Gap 14 (12-20); Blood Urea Nitrogen 17 mg/dL (9-16); Calcium 8.6 mg/dL (8.4-10.2); Carbon Dioxide 16 mmol/L (22-29); Chloride 110 mmol/L (96-108); Creatinine Clr Calc Pharmacy 93.2; Estimated Glomerular Filt Rate > 60; Glucose Random 119 mg/dL (60-115); Magnesium 1.5 mg/dL (1.6-2.6); Potassium 4.2 mmol/L (3.3-5.1); Sodium 136 mmol/L (135-145)
--- NOTE | 2022-04-24 09:43 | PHA.PROG ---
Admission Date/Time: April 23, 2022 20:41 Indication: Bacteremia Weight in k kg Adjusted body weight in Kg: [place] body weight in Kg: Obesity Dosing Indication % IBW: Serum Creatinine - Last 168 Hours 04/23/22 04/24/22 16:33 08:38 Creatinine 1.01 0.90 Estimated CrCl and GFR - Last 168 Hours 04/23/22 04/24/22 16:33 08:38 Estim Creat Clear Calc 83.0 93.2 Estimated GFR > 60 > 60 Vancomycin Loading Dose: 2000mg X 1 Current Vancomycin Dosing Regimen: 1000mg Q12H Vancomycin Monitoring using AUC goal of 400 - 600 range with trough as surrogate marker: 483mg/L Date and Time for next Vancomycin Level to be drawn: 04/25/22 @1999 Pharmacist Comments on Vancomycin Plan: pt's renal function good, will continue to monitor Vancomycin dosing will take advantage of [employer] as a clinical decision support tool that uses Bayesian modeling to calculate individual patient's pharmacokinetic parameters and forecast the patient's drug concentration time course with the target goal AUC 24 range of 400 - 600 mg/L/hr.
[2022-04-24] MEDS: cefTRIAXone sodium 1 GM in 0.9 % Sodium Chloride 50 ML IV (10:06)
--- NOTE | 2022-04-24 10:17 | PC.NURSE ---
incontinence care provided. repositioned to left side. call zuniga within reach
--- NOTE | 2022-04-24 11:33 | PC.NURSE ---
pt to IR for paracentesis
[2022-04-24 11:46] LABS: Glucose, Whole Blood 188 mg/dL (60-115)
--- NOTE | 2022-04-24 11:47 | P.PNIM_ITS ---
Subjective Subjective Date of Service: 04/24/22 Interval History: Seen in follow-up for hepatic encephalopathy and symptomatic ascites Interval history: Awake and more oriented. Answer alana lacey not in surgery when asked to be more specific about location. Mild abd discomfort. No n/v/d. Tachy to 130. Denies etoh use in last 2 years. NO other illicit substances per patient. No headache, shortness of breath, lightheadedness, chest pain Review of Systems Review of Systems: Yes all other systems are reviewed and are negative Physical Exam Vital Signs: Vital Signs: Last Vital Signs Temp 98.4 F 04/24/22 03:07 Pulse 130 H 04/24/22 03:07 Resp 19 04/24/22 03:07 BP 110/71 04/24/22 03:07 Pulse Ox 100 04/24/22 03:07 O2 Del Method 04/24/22 03:07 BMI result Body Mass Index 29.2 Constitutional - Awake and Alert, No apparent distress Eyes - PERRLA, EOMI Cardiovascular - S1S2, RRR, No edema Respiratory - Normal lung expansion, Normal respiratory effort, No respiratory distress, CTA bilaterally Gastrointestinal - Largely distended abdomen with mild diffuse ttp, +fluid wave. +BS; No rebound or guarding. No asterixis Extremities - no calf tenderness bilaterally, no swelling Skin - Warm/Dry Neurological - Alert & oriented x2, somewhat oriented to place Psychological - Appropriate affect Objective Data Active Medications Dextrose (Dextrose 50 % 25 Gm/50 Ml Syringe) 25 gm IVPUSH Q15M PRN; Protocol PRN Reason: per Hypoglycemia Standing Ord. Enoxaparin Sodium (Enoxaparin Sodium 40 Mg/0.4 Ml Syringe) 40 mg SUBCUT Q24H COUNTS INCLUDE 234 BEDS AT THE [facility] Last Admin: 04/23/22 20:57 Dose: 40 mg Documented By: ISABELLA Folic Acid (Folic Acid 1 Mg Tablet) 1 mg PO DAILY COUNTS INCLUDE 234 BEDS AT THE [facility] Last Admin: 04/24/22 08:09 Dose: 1 mg Documented By: BIN Furosemide (Furosemide 20 Mg Tablet) 20 mg PO DAILY COUNTS INCLUDE 234 BEDS AT THE [facility]; Protocol Last Admin: 04/24/22 08:09 Dose: 20 mg Documented By: BIN Glucose (Glucose Gel 15 Gm Gel..Gram.) 15 gm PO Q15M PRN; Protocol PRN Reason: per Hypoglycemia Standing Ord. Ceftriaxone Sodium 1 gm/ (Sodium Chloride) 50 mls @ 100 mls/hr IV Q24H COUNTS INCLUDE 234 BEDS AT THE [facility] Last Infusion: 04/24/22 10:38 Dose: 0 mls/hr Documented By: BIN Vancomycin HCl (Vancomycin/Ns) 2,000 mg in 520 mls @ 260 mls/hr IV ONCE ONE Stop: 04/24/22 11:59 Last Admin: 04/24/22 10:30 Dose: 260 mls/hr Documented By: BIN Vancomycin HCl 1,000 mg/ (Sodium Chloride) 270 mls @ 270 mls/hr IV Q12H COUNTS INCLUDE 234 BEDS AT THE [facility] Insulin Human Lispro (Insulin Lispro 100 Unit/Ml 3 Ml Vial) 0 unit SUBCUT QIDACHS COUNTS INCLUDE 234 BEDS AT THE [facility]; Protocol Last Admin: 04/24/22 07:41 Dose: Not Given Documented By: BIN Non-Admin Reason: No Insulin Coverage Lactulose (Lactulose 20 Gm/30 Ml Solution) 30 gm PO TID COUNTS INCLUDE 234 BEDS AT THE [facility] Last Admin: 04/23/22 23:33 Dose: 30 gm Documented By: TRUMAN Magnesium Oxide (Magnesium Oxide 400 Mg Tablet) 400 mg PO BID COUNTS INCLUDE 234 BEDS AT THE [facility] Last Admin: 04/24/22 08:19 Dose: 400 mg Documented By: BIN Omeprazole (Omeprazole 20 Mg Capsule.Dr) 20 mg PO DAILY@0630 COUNTS INCLUDE 234 BEDS AT THE [facility] Last Admin: 04/24/22 05:34 Dose: 20 mg Documented By: ACE Ondansetron HCl (Ondansetron Hcl 4 Mg/2 Ml Vial) 4 mg IVPUSH Q8H PRN PRN Reason: Nausea and Vomiting Pharmacy Consult (Consult Rx Perform Med Rec) 1 each MISCELLANE ONCE PRN PRN Reason: Consult order Pharmacy Consult (Consult Rx Vancomycin Dosing) 1 each MISCELLANE DAILY PRN PRN Reason: Consult order Rifaximin (Rifaximin 550 Mg Tablet) 550 mg PO BID COUNTS INCLUDE 234 BEDS AT THE [facility] Last Admin: 04/24/22 10:53 Dose: Not Given Documented By: BIN Non-Admin Reason: Med Not Available Sodium Chloride (0.9 % Sodium Chloride Flush 3 Ml Syringe) 3 ml IVFLUSH QSHIFT COUNTS INCLUDE 234 BEDS AT THE [facility] Last Admin: 04/24/22 08:09 Dose: 3 ml Documented By: BIN Sodium Chloride (Sodium Chloride Tab 1 Gm Tablet) 1 gm PO DAILY COUNTS INCLUDE 234 BEDS AT THE [facility] Last Admin: 04/24/22 08:08 Dose: 1 gm Documented By: BIN Spironolactone (Spironolactone 25 Mg Tablet) 25 mg PO DAILY COUNTS INCLUDE 234 BEDS AT THE [facility]; Protocol Last Admin: 04/24/22 08:08 Dose: 25 mg Documented By: BIN Thiamine HCl (Thiamine Hcl 100 Mg Tablet) 100 mg PO DAILY COUNTS INCLUDE 234 BEDS AT THE [facility] Last Admin: 04/24/22 08:09 Dose: 100 mg Documented By: BIN Labs 04/24/22 06:43 04/24/22 08:38 Labs: Laboratory Results - last 24 hr 04/23/22 04/23/22 04/23/22 16:33 16:33 16:33 MCV 99.2 H MCH 35.7 H MCHC 36.0 RDW 15.2 Plt Count 104 L D MPV 9.6 Immature Gran % (Auto) 0.5 H Neut % (Auto) 64.7 Lymph % (Auto) 19.9 L [place] % (Auto) 12.4 H Eos % (Auto) 1.5 Baso % (Auto) 1.0 Lymph # (Auto) 1.2 [place] # (Auto) 0.7 Eos # (Auto) 0.1 Baso # (Auto) 0.1 Abs Immat Gran (auto) 0.03 Absolute Neuts (auto) 3.9 Absolute Nucleated RBC 0.000 Nucleated RBC % (auto) 0.0 PT 21.2 H INR 1.8 H APTT 34.9 D Anion Gap 12 Estim Creat Clear Calc 83.0 Estimated GFR > 60 POC Glucose Random Glucose 122 H Lactic Acid Lactic Acid F/U @ 2Hr Lactic Acid F/U @ 4Hr Calcium 8.6 Magnesium 1.3 L* Total Bilirubin 3.3 H Direct Bilirubin 1.0 H AST 35 ALT 22 Alkaline Phosphatase 165 H Ammonia B-Natriuretic Peptide Total Protein 5.9 L Albumin 2.5 L Lipase 11 Peritoneal WBC Peritoneal RBC Peritoneal Tot Protein Peritoneal Albumin Peritoneal LDH Peritoneal Glucose Peritoneal Amylase Ethyl Alcohol < 10 COVID-19 (JESIKA) COVID-19 Clin Com 04/23/22 04/23/22 04/23/22 16:33 16:34 18:52 MCV MCH MCHC RDW Plt Count MPV Immature Gran % (Auto) Neut % (Auto) Lymph % (Auto) [place] % (Auto) Eos % (Auto) Baso % (Auto) Lymph # (Auto) [place] # (Auto) Eos # (Auto) Baso # (Auto) Abs Immat Gran (auto) Absolute Neuts (auto) Absolute Nucleated RBC Nucleated RBC % (auto) PT INR APTT Anion Gap Estim Creat Clear Calc Estimated GFR POC Glucose Random Glucose Lactic Acid 4.1 H* Lactic Acid F/U @ 2Hr Lactic Acid F/U @ 4Hr Calcium Magnesium Total Bilirubin Direct Bilirubin AST ALT Alkaline Phosphatase Ammonia B-Natriuretic Peptide 24 Total Protein Albumin Lipase Peritoneal WBC < 0.003 Peritoneal RBC < 0.002 Peritoneal Tot Protein Peritoneal Albumin Peritoneal LDH Peritoneal Glucose Peritoneal Amylase Ethyl Alcohol COVID-19 (JESIKA) COVID-19 [employer] 04/23/22 04/23/22 04/23/22 18:52 20:03 20:03 MCV MCH MCHC RDW Plt Count MPV Immature Gran % (Auto) Neut % (Auto) Lymph % (Auto) [place] % (Auto) Eos % (Auto) Baso % (Auto) Lymph # (Auto) [place] # (Auto) Eos # (Auto) Baso # (Auto) Abs Immat Gran (auto) Absolute Neuts (auto) Absolute Nucleated RBC Nucleated RBC % (auto) PT INR APTT Anion Gap Estim Creat Clear Calc Estimated GFR POC Glucose Random Glucose Lactic Acid Lactic Acid F/U @ 2Hr 6.1 H* Lactic Acid F/U @ 4Hr Calcium Magnesium Total Bilirubin Direct Bilirubin AST ALT Alkaline Phosphatase Ammonia 117 H B-Natriuretic Peptide Total Protein Albumin Lipase Peritoneal WBC Peritoneal RBC Peritoneal Tot Protein 1.1 Peritoneal Albumin 0.6 Peritoneal LDH 34 Peritoneal Glucose 149 Peritoneal Amylase 15 Ethyl Alcohol COVID-19 (JESIKA) [employer] 04/23/22 04/24/22 04/24/22 23:43 06:43 07:35 MCV 101.9 H MCH 35.4 H MCHC 34.7 RDW 15.7 Plt Count 79 L MPV 10.0 Immature Gran % (Auto) Neut % (Auto) Lymph % (Auto) [place] % (Auto) Eos % (Auto) Baso % (Auto) Lymph # (Auto) [place] # (Auto) Eos # (Auto) Baso # (Auto) Abs Immat Gran (auto) Absolute Neuts (auto) Absolute Nucleated RBC 0.000 Nucleated RBC % (auto) 0.0 PT INR APTT Anion Gap Estim Creat Clear Calc Estimated GFR POC Glucose 137 H Random Glucose Lactic Acid Lactic Acid F/U @ 2Hr Lactic Acid F/U @ 4Hr Calcium Magnesium Total Bilirubin Direct Bilirubin AST ALT Alkaline Phosphatase Ammonia B-Natriuretic Peptide Total Protein Albumin Lipase Peritoneal WBC Peritoneal RBC Peritoneal Tot Protein Peritoneal Albumin Peritoneal LDH Peritoneal Glucose Peritoneal Amylase Ethyl Alcohol COVID-19 (JESIKA) Negative COVID-19 [employer] Com See Note 04/24/22 04/24/22 04/24/22 08:38 08:38 11:31 MCV MCH MCHC RDW Plt Count MPV Immature Gran % (Auto) Neut % (Auto) Lymph % (Auto) [place] % (Auto) Eos % (Auto) Baso % (Auto) Lymph # (Auto) [place] # (Auto) Eos # (Auto) Baso # (Auto) Abs Immat Gran (auto) Absolute Neuts (auto) Absolute Nucleated RBC Nucleated RBC % (auto) PT INR APTT Anion Gap 14 Estim Creat Clear Calc 93.2 Estimated GFR > 60 POC Glucose 188 H Random Glucose 119 H Lactic Acid Lactic Acid F/U @ 2Hr Lactic Acid F/U @ 4Hr 2.9 H* Calcium 8.6 Magnesium 1.5 L Total Bilirubin Direct Bilirubin AST ALT Alkaline Phosphatase Ammonia B-Natriuretic Peptide Total Protein Albumin Lipase Peritoneal WBC Peritoneal RBC Peritoneal Tot Protein Peritoneal Albumin Peritoneal LDH Peritoneal Glucose Peritoneal Amylase Ethyl Alcohol COVID-19 (JESIKA) COVID-19 Clin Com Microbiology Microbiology Results: Microbiology 04/23/22 17:21 Blood Culture - Preliminary Blood - Venous Prelim: GPC Gram Stain only 04/23/22 16:33 Blood Culture - Preliminary Blood - Venous Prelim: GPC Gram Stain only Prelim: GNR Gram Stain only 04/23/22 18:40 Gram Stain - Final Peritoneal Fluid Anaerobic Culture - Preliminary No growth to date. Body Fluid Culture - Preliminary No growth to date. Assessment and Plan (1) Ascites: Status: Acute (2) End stage liver disease: Status: Acute (3) Hypomagnesemia: Status: Acute (4) Alcoholic cirrhosis: Status: Acute Plan Pt is a 56-year-old male with a PMH significant for?ETOH cirrhosis, ascites, alcohol use disorder, and dxi-kajrbpi-rdozxszow DM who presents to the ED after feeling off and not feeling well. Pt will require a hospitalization of at least two nights for treatment of?ascites and hepatic encephalopathy with paracentesis. # decompensated hepatic cirrhosis with ascites and hepatic encephalopathy -Likely noncompliant with lactulose at home -Pt more oriented today. Repeat ammonia, continue lactulose with goal of 2-3 BMs per day -abdominal paracentesis scheduled for today. No evidence of SBP on peritoneal fluid aspiration analysis in ED yesterday -Continue furosemide, spironolactone, rifaximin -Monitor mentation -Follow labs # bacteremia- unspecified source -blood culture x1 growing Gram-positive cocci and Gram-negative rods, 2nd blood culture g stain with Gram-positive cocci -Pt grew this in acinetobacter baumannii on BC on 04/03, but did not complete course of treatment as he left AMA -Will obtain UA. CXR negative. No URI. No N/V/D. No SBP -initiate vancomycin and ceftriaxone -ID consult placed -TTE on 04/06 did not show any evidence of vegetation #Tachycardia -EKG ordered -Denies any recent substance use, not likely related to withdrawal -?related to cirrhosis/ascites #Hyponatremia- chronic r/t cirrhosis/ascites -Na today 136, stable -Na <2g daily. Fluid restrictions 1.5L given reaccumulation ascites -Follow BMP #Hypomagnesemia -Repleted, MG improved to 1.5 -repeat 1 g magnesium IV -Continue PO mag -Monitor labs #Lactic acidosis -Chronic, at baseline at 4.1 -Secondary to liver disease, not sepsis #Hyperbilirubinemia -Total bilirubin 3.3, stable at baseline -Monitor #Non insulin-dependent DM2 -Hold metformin -SSI -POC glucose -diabetic diet Full Code Discussed with Dr. Pierre DVT Prophylaxis: Lovenox Pt will requires ongoing inpatient stay for management decompensated hepatic cirrhosis with ascites reaccumulation requiring paracentesis and hepatic encepha lopathy requiring lactulose with close monitoring of hepatic, renal function, and mental status, now with bacteremia requiring IV antibiotics and expert consultation Time Spent With Patient Time: Total time managing care of this patient today ____ minutes. Quality Stroke Does the patient have a stroke diagnosis?: No VTE Prior VTE?: No VTE Risk Level:: Medical - moderate - high VTE Device Contraindication: Treatment Not Indicated VTE Drug Contraindication: N/A - Med Ordered
--- NOTE | 2022-04-24 13:29 | PC.NURSE ---
patient back from IR. 7.7 liters drained. placed on tele
[2022-04-24] MEDS: Lactulose 20 GM/30 ML SOLUTION 30 GM PO ×2 (14:37→21:15)
[2022-04-24] MEDS: Magnesium Sulfate/D5W 1 GM/100 ML PIGGYBACK IV (14:37)
[2022-04-24 15:00] LABS: Ammonia 67 umol/L (13-55)
--- NOTE | 2022-04-24 15:32 | PC.NURSE ---
incontinence care provided. patient repositioned off of side and onto back.
--- NOTE | 2022-04-24 16:02 | P.CNID_ITS ---
History of Present Illness Data of Consult Service Date: 04/24/22 Requesting physician: Reena Mornoe Primary Care Provider: Unknown Physician HPI Reason for consult: bacteremia,multiple He presents with weakness and lethargy. He has gram negative and gram positive cocci in blood again. He has had Acinetobacter baumanii and coagulase negative which I think was contaminant 04/03/2022. He has no fever or chills. He has had presumed SBP. Review of Systems Review of Systems: Yes all other systems are reviewed and are negative PMFSH Past Medical History Medical History SAUL (acute kidney injury) SAUL (acute kidney injury) Alcohol abuse Alcoholic cirrhosis Ascites Diabetes Elevated liver enzymes Hypertension Hyponatremia Liver cirrhosis Pressure ulcer Withdrawal seizures Family History Family History Other No family history of coronary artery disease Family history: reviewed and not pertinent Surgical History Surgical History No pertinent past surgical history Social History Social History Household Members: Unknown / Unable to assess Housing: [facility] Do you presently have visiting nurse or other home services: Yes Unable to assess alcohol history related to: Refusing to respond Alcohol intake: current Alcohol intake frequency: 3 or more drinks per day Alcohol type: beer and hard liquor Patient Tobacco Use Status: Never used Tobacco Tobacco use type: Smokeless Tobacco Smoked in Last 30 Days: No Second Hand Smoke Exposure: No Use of substances other than those prescribed or required for medical reasons: No Advance Directives: Yes Advance Directives on File: Yes Advance Directives Date on File: 03/18/22 Nutrition Risks: No Nutritional Risk service: Yes Current occupational status: unemployed Meds Allergies Allergy/AdvReac Type Severity Reaction Status Date / Time acetaminophen [From PERCOCET] Allergy Severe AGITATION Verified 04/13/22 18:14 oxycodone [From PERCOCET] Allergy Severe AGITATION Verified 04/13/22 18:14 bee pollen [Bee Stings] Allergy Mild SWELLING Verified 04/13/22 18:14 lorazepam AdvReac Unknown AGITATION Verified 04/13/22 18:14 Active Medications: Current Medications Dextrose (Dextrose 50 % 25 Gm/50 Ml Syringe) 25 gm IVPUSH Q15M PRN; Protocol PRN Reason: per Hypoglycemia Standing Ord. Enoxaparin Sodium (Enoxaparin Sodium 40 Mg/0.4 Ml Syringe) 40 mg SUBCUT Q24H [facility] Last Admin: 04/23/22 20:57 Dose: 40 mg Folic Acid (Folic Acid 1 Mg Tablet) 1 mg PO DAILY [facility] Last Admin: 04/24/22 08:09 Dose: 1 mg Furosemide (Furosemide 20 Mg Tablet) 20 mg PO DAILY [facility]; Protocol Last Admin: 04/24/22 08:09 Dose: 20 mg Glucose (Glucose Gel 15 Gm Gel..Gram.) 15 gm PO Q15M PRN; Protocol PRN Reason: per Hypoglycemia Standing Ord. Ceftriaxone Sodium 1 gm/ (Sodium Chloride) 50 mls @ 100 mls/hr IV Q24H [facility] Last Infusion: 04/24/22 10:38 Dose: Infused Vancomycin HCl 1,000 mg/ (Sodium Chloride) 270 mls @ 270 mls/hr IV Q12H [facility] Insulin Human Lispro (Insulin Lispro 100 Unit/Ml 3 Ml Vial) 0 unit SUBCUT QIDACHS [facility]; Protocol Last Admin: 04/24/22 13:28 Dose: Not Given Lactulose (Lactulose 20 Gm/30 Ml Solution) 30 gm PO TID [facility] Last Admin: 04/24/22 14:37 Dose: 30 gm Magnesium Oxide (Magnesium Oxide 400 Mg Tablet) 400 mg PO BID [facility] Last Admin: 04/24/22 08:19 Dose: 400 mg Omeprazole (Omeprazole 20 Mg Capsule.Dr) 20 mg PO DAILY@0630 [facility] Last Admin: 04/24/22 05:34 Dose: 20 mg Ondansetron HCl (Ondansetron Hcl 4 Mg/2 Ml Vial) 4 mg IVPUSH Q8H PRN PRN Reason: Nausea and Vomiting Pharmacy Consult (Consult Rx Perform Med Rec) 1 each MISCELLANE ONCE PRN PRN Reason: Consult order Pharmacy Consult (Consult Rx Vancomycin Dosing) 1 each MISCELLANE DAILY PRN PRN Reason: Consult order Rifaximin (Rifaximin 550 Mg Tablet) 550 mg PO BID [facility] Last Admin: 04/24/22 10:53 Dose: Not Given Sodium Chloride (0.9 % Sodium Chloride Flush 3 Ml Syringe) 3 ml IVFLUSH QSHIFT [facility] Last Admin: 04/24/22 15:56 Dose: Not Given Sodium Chloride (Sodium Chloride Tab 1 Gm Tablet) 1 gm PO DAILY [facility] Last Admin: 04/24/22 08:08 Dose: 1 gm Spironolactone (Spironolactone 25 Mg Tablet) 25 mg PO DAILY [facility]; Protocol Last Admin: 04/24/22 08:08 Dose: 25 mg Thiamine HCl (Thiamine Hcl 100 Mg Tablet) 100 mg PO DAILY [facility] Last Admin: 04/24/22 08:09 Dose: 100 mg Home Medications Medication Instructions Recorded Confirmed Last Taken Type lactulose 10 gram/15 mL oral 30 ml PO BID 03/17/22 04/23/22 04/03/22 History solution omeprazole 20 mg capsule,delayed 1 cap PO DAILY 03/17/22 04/23/22 04/03/22 History release insulin lispro 100 unit/mL 0 sliding scale dose subcut TIDAC 04/03/22 04/23/22 04/03/22 History subcutaneous pen magnesium oxide 400 mg PO BID 04/03/22 04/23/22 04/03/22 History Physical Exam Vital Signs: Vital Signs: Last Vital Signs Temp 96.6 F L 04/24/22 14:20 Pulse 110 H 04/24/22 14:20 Resp 14 04/24/22 14:20 BP 108/69 04/24/22 14:20 Pulse Ox 97 04/24/22 14:20 O2 Del Method 04/24/22 14:20 BMI result Body Mass Index 29.2 Const: General: cooperative HEENT: Head: Yes normal to inspection Face and sinus: Yes normal facial exam Mouth: Normal oral and palatal mucosa present Teeth and gingiva: dentition normal Eyes: General: appearance normal, both eyes and all related structures Pupils: Equal, round and reactive pupils present Resp: Effort & Inspection: normal respiratory effort Cardio: Rate: regular rate Rhythm: regular rhythm GI: Other: some distention abdomen Palpation (GI): Soft to palpation and nontender : General: Yes no CVA tenderness Back/Spine/Pelvis: Back: no CVA tenderness Skin: General skin exam: no rashes or lesions noted Neuro: General: moves all extremities Cranial nerves: Yes Equal, round and reactive pupils present Extrem: General: Yes normal to inspection Psych: Appearance: grossly normal Results Labs 04/24/22 06:43 04/24/22 08:38 Labs: Short CBC 04/23/22 04/24/22 Range/Units 16:33 06:43 WBC 6.0 6.4 (4.8-10.8) X10*3/uL Hgb 9.1 L 7.5 L (14.0-18.0) g/dl Hct 25.3 L 21.6 L (42.0-52.0) % Plt Count 104 L D 79 L (160-400) X10*3/uL BMP 04/23/22 04/24/22 16:33 08:38 Sodium 132 L 136 Potassium 4.4 4.2 Chloride 107 110 H Carbon Dioxide 17 L 16 L BUN 21 H 17 H Creatinine 1.01 0.90 Calcium 8.6 8.6 Liver Function 04/23/22 Range/Units 16:33 Total Bilirubin 3.3 H (0.0-1.0) mg/dL Direct Bilirubin 1.0 H (0.0-0.5) mg/dL AST 35 (5-37) U/L ALT 22 (0-40) U/L Alkaline Phosphatase 165 H (39-117) U/L Albumin 2.5 L (3.5-5.0) g/dL Microbiology Microbiology Results: Microbiology 04/23/22 17:21 Blood - Venous Blood Culture - Preliminary Prelim: GPC Gram Stain only 04/23/22 16:33 Blood - Venous Blood Culture - Preliminary Prelim: GPC Gram Stain only Prelim: GNR Gram Stain only 04/23/22 18:40 Peritoneal Fluid Gram Stain - Final 04/23/22 18:40 Peritoneal Fluid Anaerobic Culture - Preliminary No growth to date. 04/23/22 18:40 Peritoneal Fluid Body Fluid Culture - Preliminary No growth to date. Assessment and Plan (1) Non-compliant patient: Status: Acute (2) Gram-negative bacteremia: Status: Acute He has Acenitobacter infection likely again He has possible gram positive contamination or may be MRSA. He has probable SBP source (3) Abdominal pain: Status: Acute (4) End stage liver disease: Status: Acute Plan Would continue Ceftriaxone and Vancomycin for now. Would recheck echo. He is nonadherent so likely this SBP will repeat itself Await cultures and probable prophylaxis outpatient after acute treatment. Time Spent With Patient Time: Total time managing care of this patient today ____ minutes.
[2022-04-24 17:03] LABS: Glucose, Whole Blood 191 mg/dL (60-115)
[2022-04-24] MEDS: Insulin Lispro 100 UNIT/ML 3 ML VIAL SUBCUT ×2 (18:16→21:15)
[2022-04-24 19:42] LABS: Glucose, Whole Blood 157 mg/dL (60-115)
[2022-04-24] MEDS: vancomycin HCL 1,000 MG in 0.9 % Sodium Chloride 250 ML 270 MG IV (21:15)
[2022-04-24] MEDS: rifAXIMin 550 MG TABLET PO (21:15)
[2022-04-24] MEDS: Enoxaparin Sodium 40 MG/0.4 ML SYRINGE SUBCUT (21:16)
[2022-04-25] MEDS: Omeprazole 20 MG CAPSULE.DR PO (05:34)
[2022-04-25 06:05] LABS: MANUAL DIFF FLAG NO
[2022-04-25 06:12] LABS: Basophils Absolute Auto 0.1 X10*3/uL (0.0-0.2); Basophils Percent Auto 1.3 % (0-2); Eosinophils Absolute Auto 0.2 X10*3/uL (0.0-0.4); Eosinophils Percent Auto 3.4 % (0-4); Hematocrit 23.3 % (42.0-52.0); Hemoglobin 7.9 g/dl (14.0-18.0); Imm Gran Abs Auto 0.03 X10*3/uL (0.00-0.03); Imm Gran Pct Auto 0.5 % (0.0-0.4); Lymphocytes Absolute Auto 0.8 X10*3/uL (1.2-4.9); Lymphocytes Percent Auto 13.3 % (20-40); Mean Corpuscular HGB Conc 33.9 g/dl (31.0-36.0); Mean Corpuscular Volume 103.1 fL (80.0-98.0); Mean Platelet Volume 9.7 fL (9.4-12.4); Monocytes Absolute Auto 0.7 X10*3/uL (0.1-1.2); Monocytes Percent Auto 10.5 % (2-11); Neutrophils Absolute Auto 4.5 x10*3/uL (2.0-8.3); Red Blood Count 2.26 X10*6/uL (4.60-5.80); Red Cell Distribution Width 15.8 % (11.0-16.0); White Blood Count 6.3 X10*3/uL (4.8-10.8)
[2022-04-25 06:26] LABS: Platelet Count 81 X10*3/uL (160-400)
[2022-04-25 06:39] LABS: Alanine Aminotransferase 20 U/L (0-40); Albumin Level 2.5 g/dL (3.5-5.0); Alkaline Phosphatase 180 U/L (39-117); Anion Gap 12 (12-20); Aspartate Amino Transferase 36 U/L (5-37); Bilirubin Total 2.3 mg/dL (0.0-1.0); Blood Urea Nitrogen 12 mg/dL (9-16); Calcium 8.3 mg/dL (8.4-10.2); Carbon Dioxide 18 mmol/L (22-29); Chloride 110 mmol/L (96-108); Creatinine Clr Calc Pharmacy 102.3; Estimated Glomerular Filt Rate > 60; Glucose Random 130 mg/dL (60-115); Potassium 4.3 mmol/L (3.3-5.1); Sodium 136 mmol/L (135-145); Total Protein 5.4 g/dL (6.5-8.0)
[2022-04-25 07:41] LABS: Glucose, Whole Blood 120 mg/dL (60-115)
[2022-04-25 07:53] VITALS: BP 104/54; PULSE 99; RESP 18; TEMP 37.3; O2SAT 100
[2022-04-25] MEDS: Magnesium Oxide 400 MG TABLET PO ×2 (08:44→20:51)
[2022-04-25] MEDS: Spironolactone 25 MG TABLET PO (08:44)
[2022-04-25] MEDS: Spironolactone 25 MG TABLET 12.5 MG PO (08:44)
[2022-04-25] MEDS: Thiamine HCL 100 MG TABLET PO (08:44)
[2022-04-25] MEDS: Lactulose 20 GM/30 ML SOLUTION 30 GM PO ×3 (08:45→20:49)
[2022-04-25] MEDS: Folic Acid 1 MG TABLET PO (08:45)
[2022-04-25] MEDS: rifAXIMin 550 MG TABLET PO ×2 (08:45→20:51)
[2022-04-25] MEDS: Sodium Chloride Tab 1 GM TABLET PO (08:45)
[2022-04-25] MEDS: Furosemide 20 MG TABLET PO (08:46)
[2022-04-25] MEDS: 0.9 % Sodium Chloride Flush 3 ML SYRINGE IVFLUSH ×2 (08:46→15:56)
[2022-04-25 11:23] LABS: Glucose, Whole Blood 169 mg/dL (60-115)
[2022-04-25] MEDS: vancomycin HCL 1,000 MG in 0.9 % Sodium Chloride 250 ML 270 MG IV (11:39)
[2022-04-25] MEDS: cefTRIAXone sodium 1 GM in 0.9 % Sodium Chloride 50 ML IV (11:39)
--- NOTE | 2022-04-25 11:52 | P.PNIM_ITS ---
Subjective Subjective Date of Service: 04/25/22 Interval History: Seen in follow-up for hepatic encephalopathy and symptomatic ascites Interval history: A&Ox4. Afebile, but with shaking chills. s/p paracentesis having drained 7.8 L yesterday. Peritoneal fluid cultures negative thus far. Does have positive blood cultures x2 with Gram-negative rods and Gram-positive cocci. He has no complaints, tolerarating PO. Review of Systems Review of Systems: Yes all other systems are reviewed and are negative Physical Exam Vital Signs: Vital Signs: Last Vital Signs Temp 99.1 F 04/25/22 07:53 Pulse 99 04/25/22 07:53 Resp 18 04/25/22 07:53 BP 104/54 L 04/25/22 07:53 Pulse Ox 100 04/25/22 07:53 O2 Del Method 04/25/22 07:53 BMI result Body Mass Index 29.2 Constitutional - Awake and Alert, No apparent distress Eyes - PERRLA, EOMI Cardiovascular - S1S2, RRR, No edema Respiratory - Normal lung expansion, Normal respiratory effort, No respiratory distress, CTA bilaterally Gastrointestinal - soft, moderate distension. NT, +BS; No rebound or guarding. +fluid wave Extremities - no calf tenderness bilaterally, no swelling Skin - Warm/Dry Neurological - Alert & oriented x4 Psychological - Appropriate affect Objective Data Active Medications Dextrose (Dextrose 50 % 25 Gm/50 Ml Syringe) 25 gm IVPUSH Q15M PRN; Protocol PRN Reason: per Hypoglycemia Standing Ord. Enoxaparin Sodium (Enoxaparin Sodium 40 Mg/0.4 Ml Syringe) 40 mg SUBCUT Q24H [facility] Last Admin: 04/24/22 21:16 Dose: 40 mg Documented By: AVIVA Folic Acid (Folic Acid 1 Mg Tablet) 1 mg PO DAILY [facility] Last Admin: 04/25/22 08:45 Dose: 1 mg Documented By: RITA Furosemide (Furosemide 20 Mg Tablet) 20 mg PO DAILY [facility]; Protocol Last Admin: 04/25/22 08:46 Dose: 20 mg Documented By: RITA Glucose (Glucose Gel 15 Gm Gel..Gram.) 15 gm PO Q15M PRN; Protocol PRN Reason: per Hypoglycemia Standing Ord. Ceftriaxone Sodium 1 gm/ (Sodium Chloride) 50 mls @ 100 mls/hr IV Q24H [facility] Last Admin: 04/25/22 11:39 Dose: 100 mls/hr Documented By: RITA Vancomycin HCl 1,000 mg/ (Sodium Chloride) 270 mls @ 270 mls/hr IV Q12H [facility] Last Admin: 04/25/22 11:39 Dose: 270 mls/hr Documented By: RITA Insulin Human Lispro (Insulin Lispro 100 Unit/Ml 3 Ml Vial) 0 unit SUBCUT QIDA CHS [facility]; Protocol Last Admin: 04/25/22 07:46 Dose: Not Given Documented By: RITA Non-Admin Reason: No Insulin Coverage Lactulose (Lactulose 20 Gm/30 Ml Solution) 30 gm PO TID [facility] Last Admin: 04/25/22 08:45 Dose: 30 gm Documented By: RITA Magnesium Oxide (Magnesium Oxide 400 Mg Tablet) 400 mg PO BID [facility] Last Admin: 04/25/22 08:44 Dose: 400 mg Documented By: RITA Omeprazole (Omeprazole 20 Mg Capsule.Dr) 20 mg PO DAILY@0630 [facility] Last Admin: 04/25/22 05:34 Dose: 20 mg Documented By: MELVI Ondansetron HCl (Ondansetron Hcl 4 Mg/2 Ml Vial) 4 mg IVPUSH Q8H PRN PRN Reason: Nausea and Vomiting Pharmacy Consult (Consult Rx Perform Med Rec) 1 each MISCELLANE ONCE PRN PRN Reason: Consult order Pharmacy Consult (Consult Rx Vancomycin Dosing) 1 each MISCELLANE DAILY PRN PRN Reason: Consult order Rifaximin (Rifaximin 550 Mg Tablet) 550 mg PO BID [facility] Last Admin: 04/25/22 08:45 Dose: 550 mg Documented By: RITA Sodium Chloride (0.9 % Sodium Chloride Flush 3 Ml Syringe) 3 ml IVFLUSH QSHIFT [facility] Last Admin: 04/25/22 08:46 Dose: 3 ml Documented By: RITA Sodium Chloride (Sodium Chloride Tab 1 Gm Tablet) 1 gm PO DAILY [facility] Last Admin: 04/25/22 08:45 Dose: 1 gm Documented By: RITA Spironolactone (Spironolactone 25 Mg Tablet) 25 mg PO DAILY [facility]; Protocol Last Admin: 04/25/22 08:44 Dose: 25 mg Documented By: RITA Spironolactone (Spironolactone 25 Mg Tablet) 12.5 mg PO DAILY [facility]; Protocol Last Admin: 04/25/22 08:44 Dose: 12.5 mg Documented By: RITA Thiamine HCl (Thiamine Hcl 100 Mg Tablet) 100 mg PO DAILY [facility] Last Admin: 04/25/22 08:44 Dose: 100 mg Documented By: RITA Labs 04/25/22 06:01 04/25/22 06:01 Labs: Laboratory Results - last 24 hr 04/24/22 04/24/22 04/24/22 14:41 16:59 19:24 MCV MCH MCHC RDW Plt Count MPV Immature Gran % (Auto) Neut % (Auto) Lymph % (Auto) [place] % (Auto) Eos % (Auto) Baso % (Auto) Lymph # (Auto) [place] # (Auto) Eos # (Auto) Baso # (Auto) Abs Immat Gran (auto) Absolute Neuts (auto) Absolute Nucleated RBC Nucleated RBC % (auto) Anion Gap Estim Creat Clear Calc Estimated GFR POC Glucose 191 H 157 H Random Glucose Calcium Total Bilirubin AST ALT Alkaline Phosphatase Ammonia 67 H Total Protein Albumin 04/25/22 04/25/22 04/25/22 06:01 06:01 07:27 MCV 103.1 H MCH 35.0 H MCHC 33.9 RDW 15.8 Plt Count 81 L MPV 9.7 Immature Gran % (Auto) 0.5 H Neut % (Auto) 71.0 Lymph % (Auto) 13.3 L [place] % (Auto) 10.5 Eos % (Auto) 3.4 Baso % (Auto) 1.3 Lymph # (Auto) 0.8 L [place] # (Auto) 0.7 Eos # (Auto) 0.2 Baso # (Auto) 0.1 Abs Immat Gran (auto) 0.03 Absolute Neuts (auto) 4.5 Absolute Nucleated RBC 0.000 Nucleated RBC % (auto) 0.0 Anion Gap 12 Estim Creat Clear Calc 102.3 Estimated GFR > 60 POC Glucose 120 H Random Glucose 130 H Calcium 8.3 L Total Bilirubin 2.3 H AST 36 ALT 20 Alkaline Phosphatase 180 H Ammonia Total Protein 5.4 L Albumin 2.5 L 04/25/22 11:15 MCV MCH MCHC RDW Plt Count MPV Immature Gran % (Auto) Neut % (Auto) Lymph % (Auto) [place] % (Auto) Eos % (Auto) Baso % (Auto) Lymph # (Auto) [place] # (Auto) Eos # (Auto) Baso # (Auto) Abs Immat Gran (auto) Absolute Neuts (auto) Absolute Nucleated RBC Nucleated RBC % (auto) Anion Gap Estim Creat Clear Calc Estimated GFR POC Glucose 169 H Random Glucose Calcium Total Bilirubin AST ALT Alkaline Phosphatase Ammonia Total Protein Albumin Microbiology Microbiology Results: Microbiology 04/23/22 18:40 Gram Stain - Final Peritoneal Fluid Anaerobic Culture - Preliminary No growth to date. Body Fluid Culture - Preliminary No growth to date. 04/23/22 17:21 Blood Culture - Preliminary Blood - Venous Gram positive cocci 04/23/22 16:33 Blood Culture - Preliminary Blood - Venous Gram negative rand Prelim: GPC Gram Stain only Assessment and Plan (1) Ascites: Status: Acute (2) End stage liver disease: Status: Acute (3) Hypomagnesemia: Status: Acute (4) Alcoholic cirrhosis: Status: Acute (5) Gram-negative bacteremia: Status: Acute (6) Hepatic encephalopathy: Status: Acute Plan Pt is a 56-year-old male with a PMH significant for?ETOH cirrhosis, ascites, alcohol use disorder, and [id number] DM who presents to the ED after feeling off and not feeling well. Pt will require a hospitalization of at least two nights for treatment of?ascites and hepatic encephalopathy with paracentesis. # decompensated hepatic cirrhosis with ascites and hepatic encephalopathy -likely noncompliant with lactulose at home -Encephalopathy resolved. Repeat ammonia, continue lactulose with goal of 2-3 BMs per day -s/p therapeutic paracentesis yesterday with 7.7 L removed. Peritoneal fluid cultures with negative preliminary results -Continue furosemide, rifaximin. Increase spironolactone to 37.5 mg. Monitor blood pressure closely -continue fluid restrictions of 1.5 L and 2 g sodium restrictions -Monitor mentation -Follow labs # bacteremia- unspecified source -blood culture x1 growing Gram-positive cocci and Gram-negative rods, 2nd blood culture g stain with Gram-positive cocci -Pt grew this in acinetobacter baumannii on BC on 04/03, but did not complete course of treatment as he left AMA -continue vancomycin and ceftriaxone -echocardiogram pending -appreciate ID input #Sinus Tachycardia -EKG ordered showing sinus tachycardia -Denies any recent substance use, not likely related to withdrawal -likely related to cirrhosis/ascites #Hyponatremia- chronic r/t cirrhosis/ascites -Na today 136, stable -Na <2g daily. Fluid restrictions 1.5L given reaccumulation ascites -Follow BMP #Hypomagnesemia -Repleted, MG improved to 1.5 -repeat 1 g magnesium IV -Continue PO mag -Monitor labs #Lactic acidosis -Chronic, at baseline at 4.1 -Secondary to liver disease, not sepsis #Hyperbilirubinemia -Total bilirubin 3.3, stable at baseline -Monitor #Non insulin-dependent DM2 -Hold metformin -SSI -POC glucose -diabetic diet Full Code Discussed with Dr. Falcon DVT Prophylaxis: Lovenox Pt will requires ongoing inpatient stay for management decompensated hepatic cirrhosis with ascites reaccumulation requiring paracentesis and hepatic encephalopathy requiring lactulose with close monitoring of hepatic, renal function, and mental status, now with bacteremia requiring IV antibiotics and expert consultation Time Spent With Patient Time: Total time managing care of this patient today ____ minutes. Quality Stroke Does the patient have a stroke diagnosis?: No VTE Prior VTE?: No VTE Risk Level:: Medical - moderate - high VTE Device Contraindication: Treatment Not Indicated VTE Drug Contraindication: N/A - Med Ordered
[2022-04-25] MEDS: Insulin Lispro 100 UNIT/ML 3 ML VIAL SUBCUT ×3 (11:55→21:13)
[2022-04-25 12:38] LABS: Magnesium 1.6 mg/dL (1.6-2.6)
--- NOTE | 2022-04-25 14:47 | MHC.CM.PN ---
PT LIVES WITH HIS GF WHO ASSISTS WITH HIS CARE HE IS ACTIVE WITH [facility] FOR DAILY RN VISITS PT USES A WHEEL CHAIR AT [facility] ON FILE PCP: VIANEY CEE VAX + OF NOTE: DUE TO PTS DISPOSITION, MOST INFO FOR FINANCIAL LEGAL ASSISTANT WAS OBTAINED FROM PREVIOUS ADMISSIONS DCP: [facility] PT REFUSING STR HE WILL NEED BLS TRANSPORT
[2022-04-25 14:48] LABS: Anion Gap 14 (12-20); Blood Urea Nitrogen 11 mg/dL (9-16); Calcium 8.2 mg/dL (8.4-10.2); Carbon Dioxide 17 mmol/L (22-29); Chloride 108 mmol/L (96-108); Creatinine Clr Calc Pharmacy 97.5; Estimated Glomerular Filt Rate > 60; Glucose Random 195 mg/dL (60-115); Magnesium 1.5 mg/dL (1.6-2.6); Potassium 4.1 mmol/L (3.3-5.1); Sodium 135 mmol/L (135-145)
[2022-04-25 15:36] VITALS: BP 118/70; PULSE 129; RESP 16; TEMP 36.6; O2SAT 100
[2022-04-25] MEDS: Magnesium Sulfate/D5W 1 GM/100 ML PIGGYBACK IV (15:53)
[2022-04-25 16:59] LABS: Glucose, Whole Blood 194 mg/dL (60-115)
[2022-04-25] MEDS: Metoprolol Tartrate 5 MG/5 ML VIAL IVPUSH (18:18)
[2022-04-25] MEDS: Albumin Human 25 % 100 ML IV ×2 (19:09→20:48)
[2022-04-25] MEDS: HYDROmorphone HCl 0.5 MG/0.5 ML SYRINGE 0.25 MG IVPUSH (19:12)
[2022-04-25] MEDS: PHENobarbitaL sodium 130 MG/ML IM ONCE 256.1 MG IM (19:27)
[2022-04-25 20:19] LABS: Glucose, Whole Blood 181 mg/dL (60-115)
[2022-04-25 20:45] LABS: Vancomycin Trough 17.6 mcg/mL (10.0-20.0)
--- NOTE | 2022-04-25 20:52 | HE.PHANOTE ---
Vancomcyin Dosing Level 17.6 after load dose and 1 maintenance dose. Since patient is not at steady state yet will decrease dose to vancomycin 750 mg Q12H. Next level in 24 hours 04/26 @ 1999. Kassi SalehD
--- NOTE | 2022-04-25 21:07 | PC.NURSE ---
While taking lactulose medication, pt coughed and inhaled while drinking the liquid. Was sitting upright, sat up further, cupped back and turned on side. Cupped back for about 5 minutes to assist in getting up any inhaled contents. Cough remains after this time, covering provider alerted via tiger text. Will place orders.
--- NOTE | 2022-04-25 21:43 | PC.NURSE ---
at 17:30 pt HR jumped between 130-140 sinus tach, during movement and talking, pt was getting agitated with this nurse during conversation. HR reported to provider on, pt also reports pain, no prn available. Lastly, site to LLQ of abd where pt was draine day prior was leaking fluid, this also reported. Placed pressure tegaderm stopped leak. Will place orders.
[2022-04-25] MEDS: vancomycin HCL 750 MG in 0.9 % Sodium Chloride 250 ML 265 MG IV (22:35)
[2022-04-25] MEDS: PHENobarbitaL sodium 130 MG/ML VIAL IM Q3Hx2 192.4 MG IM (22:36)
[2022-04-26] VITALS: BP 102/62; PULSE 104
[2022-04-26] MEDS: 0.9 % Sodium Chloride Flush 3 ML SYRINGE IVFLUSH ×4 (00:16→22:03)
[2022-04-26] MEDS: PHENobarbitaL sodium 130 MG/ML VIAL IM Q3Hx2 192.4 MG IM (00:19)
[2022-04-26 06:15] LABS: MANUAL DIFF FLAG NO
[2022-04-26 06:23] LABS: Basophils Percent Auto 0.9 % (0-2); Eosinophils Percent Auto 0.9 % (0-4); Hematocrit 21.6 % (42.0-52.0); Hemoglobin 7.3 g/dl (14.0-18.0); Imm Gran Abs Auto 0.01 X10*3/uL (0.00-0.03); Imm Gran Pct Auto 0.3 % (0.0-0.4); Lymphocytes Absolute Auto 0.6 X10*3/uL (1.2-4.9); Lymphocytes Percent Auto 19.5 % (20-40); Mean Corpuscular HGB Conc 33.8 g/dl (31.0-36.0); Mean Corpuscular Hemoglobin 35.3 pg (27.0-33.0); Mean Corpuscular Volume 104.3 fL (80.0-98.0); Mean Platelet Volume 10.1 fL (9.4-12.4); Monocytes Absolute Auto 0.4 X10*3/uL (0.1-1.2); Monocytes Percent Auto 11.9 % (2-11); Neutrophils Absolute Auto 2.1 x10*3/uL (2.0-8.3); Neutrophils Percent Auto 66.5 % (45-73); Red Blood Count 2.07 X10*6/uL (4.60-5.80); Red Cell Distribution Width 16.1 % (11.0-16.0); White Blood Count 3.2 X10*3/uL (4.8-10.8)
[2022-04-26 06:24] LABS: INTERNATIONAL NORM RATIO 2.1 (0.9-1.1); Prothrombin Time 25.3 SEC (10.0-13.1)
[2022-04-26 06:28] LABS: Platelet Count 64 X10*3/uL (160-400)
[2022-04-26 06:48] LABS: Alanine Aminotransferase 20 U/L (0-40); Albumin Level 2.9 g/dL (3.5-5.0); Alkaline Phosphatase 136 U/L (39-117); Anion Gap 15 (12-20); Aspartate Amino Transferase 38 U/L (5-37); Bilirubin Total 2.5 mg/dL (0.0-1.0); Blood Urea Nitrogen 10 mg/dL (9-16); Calcium 8.5 mg/dL (8.4-10.2); Carbon Dioxide 17 mmol/L (22-29); Chloride 109 mmol/L (96-108); Creatinine Clr Calc Pharmacy 99.8; Estimated Glomerular Filt Rate > 60; Glucose Random 166 mg/dL (60-115); Potassium 3.9 mmol/L (3.3-5.1); Sodium 137 mmol/L (135-145); Total Protein 5.4 g/dL (6.5-8.0)
[2022-04-26 07:30] LABS: Glucose, Whole Blood 162 mg/dL (60-115)
[2022-04-26 07:44] VITALS: PULSE 98; RESP 16; TEMP 36.1; O2SAT 99
[2022-04-26] MEDS: Insulin Lispro 100 UNIT/ML 3 ML VIAL SUBCUT ×3 (09:05→19:36)
[2022-04-26] MEDS: Lactulose 20 GM/30 ML SOLUTION 30 GM PO ×2 (09:07→19:37)
[2022-04-26] MEDS: cefTRIAXone sodium 1 GM in 0.9 % Sodium Chloride 50 ML IV (09:13)
[2022-04-26] MEDS: rifAXIMin 550 MG TABLET PO ×2 (09:24→19:36)
[2022-04-26] MEDS: Folic Acid 1 MG TABLET PO (09:24)
[2022-04-26] MEDS: Thiamine HCL 100 MG TABLET PO (09:24)
[2022-04-26] MEDS: Sodium Chloride Tab 1 GM TABLET PO (09:24)
[2022-04-26] MEDS: Magnesium Oxide 400 MG TABLET 800 MG PO ×2 (09:25→19:36)
[2022-04-26] MEDS: vancomycin HCL 750 MG in 0.9 % Sodium Chloride 250 ML 265 MG IV (09:26)
[2022-04-26 09:48] LABS: Ammonia 48 umol/L (13-55)
--- NOTE | 2022-04-26 09:52 | HO.PM.IMPN ---
Subjective Subjective Date of Service: 04/26/22 Interval History: Seen in follow-up for hepatic encephalopathy and symptomatic ascites Interval history: Awake, Initially talking somewhat nonsensically saying he put me in a case. give me a case , i dont want alcohol . Became more oriented, responding to orientation questions appropriately x4. Tachycardia improved with phenobarb initiation. Last CIWA 2. Back pain improved. Denies recent injury, weakness, paresthesias. He is incontinent of stool and urine but this is baseline. Denies abd pain, nausea, vomiting. 5 loose stools last 24 hours. Very thirsty Review of Systems Review of Systems: Yes all other systems are reviewed and are negative Physical Exam Vital Signs: Vital Signs: Last Vital Signs Temp 97.0 F 04/26/22 07:44 Pulse 98 04/26/22 07:44 Resp 16 04/26/22 07:44 BP 102/62 04/26/22 00:00 Pulse Ox 99 04/26/22 07:44 O2 Del Method 04/26/22 07:44 BMI result Body Mass Index 29.2 Constitutional - Awake and Alert, No apparent distress Eyes - PERRLA, EOMI Mouth/tongue- dry mucosa and lips Cardiovascular - S1S2, RRR, No edema Respiratory - Normal lung expansion, Normal respiratory effort, No respiratory distress, CTA bilaterally Gastrointestinal - Large softly distended abd, mild ttp, +BS; No rebound or guarding. +fluid wave Extremities - no calf tenderness bilaterally, no swelling Musculoskeletal - Midline and bilateral low back pain Skin - Warm/Dry Neurological - Alert & oriented x4. Refusing strength exam Psychological - Appropriate affect Objective Data Active Medications Dextrose (Dextrose 50 % 25 Gm/50 Ml Syringe) 25 gm IVPUSH Q15M PRN; Protocol PRN Reason: per Hypoglycemia Standing Ord. Folic Acid (Folic Acid 1 Mg Tablet) 1 mg PO DAILY [facility] Last Admin: 04/26/22 09:24 Dose: 1 mg Documented By: DULCE Furosemide (Furosemide 20 Mg Tablet) 20 mg PO DAILY [facility]; Protocol Last Admin: 04/26/22 09:39 Dose: Not Given Documented By: DULCE Non-Admin Reason: Decreased Blood Pressure Glucose (Glucose Gel 15 Gm Gel..Gram.) 15 gm PO Q15M PRN; Protocol PRN Reason: per Hypoglycemia Standing Ord. Guaifenesin/Codeine Phosphate (Guaifen/Codeine Sf 200/20/10ml 10 Ml Liquid) 10 ml PO Q4H PRN PRN Reason: cough Hydromorphone HCl (Hydromorphone Hcl 0.5 Mg/0.5 Ml Syringe) 0.25 mg IVPUSH Q4H PRN; Protocol PRN Reason: Pain, Severe (Pain Scale 7-10) Last Admin: 04/25/22 19:12 Dose: 0.25 mg Documented By: KANDACE Ceftriaxone Sodium 1 gm/ (Sodium Chloride) 50 mls @ 100 mls/hr IV Q24H [facility] Last Admin: 04/26/22 09:13 Dose: 100 mls/hr Documented By: DULCE Vancomycin HCl 750 mg/ Sodium (Chloride) 265 mls @ 265 mls/hr IV Q12H [facility] Last Admin: 04/26/22 09:26 Dose: 265 mls/hr Documented By: DULCE Sodium Chloride (Ns) 250 mls @ 80 mls/hr IV .Q3H8M [facility] Stop: 04/26/22 13:07 Insulin Human Lispro (Insulin Lispro 100 Unit/Ml 3 Ml Vial) 0 unit SUBCUT QIDACHS [facility]; Protocol Last Admin: 04/26/22 09:05 Dose: 2 unit Documented By: DULCE Lactulose (Lactulose 20 Gm/30 Ml Solution) 30 gm PO TID [facility] Last Admin: 04/26/22 09:07 Dose: 30 gm Documented By: DULCE Magnesium Oxide (Magnesium Oxide 400 Mg Tablet) 800 mg PO BID [facility] Last Admin: 04/26/22 09:25 Dose: 800 mg Documented By: DULCE Omeprazole (Omeprazole 20 Mg Capsule.Dr) 20 mg PO DAILY@0630 [facility] Last Admin: 04/26/22 06:34 Dose: Not Given Documented By: ADIS Non-Admin Reason: Patient Refused Ondansetron HCl (Ondansetron Hcl 4 Mg/2 Ml Vial) 4 mg IVPUSH Q8H PRN PRN Reason: Nausea and Vomiting Pharmacy Consult (Consult Rx Perform Med Rec) 1 each MISCELLANE ONCE PRN PRN Reason: Consult order Pharmacy Consult (Consult Rx Vancomycin Dosing) 1 each MISCELLANE DAILY PRN PRN Reason: Consult order Pharmacy Consult (Consult Rx Etoh Phenob Im/Po) 1 each MISCELLANE ONCE PRN; Protocol PRN Reason: Consult order Phenobarbital (Phenobarbital 15 Mg Tablet) 45 mg PO BID [facility]; Protocol Stop: 04/27/22 21:01 Last Admin: 04/26/22 09:40 Dose: Not Given Documented By: DULCE Non-Admin Reason: Decreased Blood Pressure Phenobarbital (Phenobarbital 15 Mg Tablet) 15 mg PO BID [facility]; Protocol Stop: 04/29/22 21:01 Phenobarbital (Phenobarbital 15 Mg Tablet) 15 mg PO DAILY [facility]; Protocol Stop: 05/01/22 09:01 Rifaximin (Rifaximin 550 Mg Tablet) 550 mg PO BID [facility] Last Admin: 04/26/22 09:24 Dose: 550 mg Documented By: DULCE Sodium Chloride (0.9 % Sodium Chloride Flush 3 Ml Syringe) [facility] Last Admin: 04/26/22 09:06 Dose: 3 ml Documented By: DULCE Sodium Chloride (Sodium Chloride Tab 1 Gm Tablet) 1 gm PO DAILY [facility] Last Admin: 04/26/22 09:24 Dose: 1 gm Documented By: DULCE Spironolactone (Spironolactone 25 Mg Tablet) 25 mg PO DAILY [facility]; Protocol Last Admin: 04/26/22 09:40 Dose: Not Given Documented By: DULCE Non-Admin Reason: Decreased Blood Pressure Spironolactone (Spironolactone 25 Mg Tablet) 12.5 mg PO DAILY [facility]; Protocol Last Admin: 04/26/22 09:40 Dose: Not Given Documented By: DULCE Non-Admin Reason: Decreased Blood Pressure Thiamine HCl (Thiamine Hcl 100 Mg Tablet) 100 mg PO DAILY [facility] Last Admin: 04/26/22 09:24 Dose: 100 mg Documented By: DULCE Labs 04/26/22 05:20 04/26/22 05:20 Labs: Laboratory Results - last 24 hr 04/25/22 04/25/22 04/25/22 06:01 11:15 13:33 MCV MCH MCHC RDW Plt Count MPV Immature Gran % (Auto) Neut % (Auto) Lymph % (Auto) [place] % (Auto) Eos % (Auto) Baso % (Auto) Lymph # (Auto) [place] # (Auto) Eos # (Auto) Baso # (Auto) Abs Immat Gran (auto) Absolute Neuts (auto) Absolute Nucleated RBC Nucleated RBC % (auto) PT INR Anion Gap 14 Estim Creat Clear Calc 97.5 Estimated GFR > 60 POC Glucose 169 H Random Glucose 195 H Calcium 8.2 L Magnesium 1.6 1.5 L Total Bilirubin AST ALT Alkaline Phosphatase Ammonia Total Protein Albumin Vancomycin Trough 04/25/22 04/25/22 04/25/22 15:57 19:15 20:05 MCV MCH MCHC RDW Plt Count MPV Immature Gran % (Auto) Neut % (Auto) Lymph % (Auto) [place] % (Auto) Eos % (Auto) Baso % (Auto) Lymph # (Auto) [place] # (Auto) Eos # (Auto) Baso # (Auto) Abs Immat Gran (auto) Absolute Neuts (auto) Absolute Nucleated RBC Nucleated RBC % (auto) PT INR Anion Gap Estim Creat Clear Calc Estimated GFR POC Glucose 194 H 181 H Random Glucose Calcium Magnesium Total Bilirubin AST ALT Alkaline Phosphatase Ammonia Total Protein Albumin Vancomycin Trough 17.6 04/26/22 04/26/22 04/26/22 05:20 05:20 05:20 MCV 104.3 H MCH 35.3 H MCHC 33.8 RDW 16.1 H Plt Count 64 L MPV 10.1 Immature Gran % (Auto) 0.3 Neut % (Auto) 66.5 Lymph % (Auto) 19.5 L [place] % (Auto) 11.9 H Eos % (Auto) 0.9 Baso % (Auto) 0.9 Lymph # (Auto) 0.6 L [place] # (Auto) 0.4 Eos # (Auto) 0.0 Baso # (Auto) 0.0 Abs Immat Gran (auto) 0.01 Absolute Neuts (auto) 2.1 Absolute Nucleated RBC 0.000 Nucleated RBC % (auto) 0.0 PT 25.3 H INR 2.1 H Anion Gap 15 Estim Creat Clear Calc 99.8 Estimated GFR > 60 POC Glucose Random Glucose 166 H Calcium 8.5 Magnesium Total Bilirubin 2.5 H AST 38 H ALT 20 Alkaline Phosphatase 136 H Ammonia Total Protein 5.4 L Albumin 2.9 L Vancomycin Trough 04/26/22 04/26/22 07:19 09:29 MCV MCH MCHC RDW Plt Count MPV Immature Gran % (Auto) Neut % (Auto) Lymph % (Auto) [place] % (Auto) Eos % (Auto) Baso % (Auto) Lymph # (Auto) [place] # (Auto) Eos # (Auto) Baso # (Auto) Abs Immat Gran (auto) Absolute Neuts (auto) Absolute Nucleated RBC Nucleated RBC % (auto) PT INR Anion Gap Estim Creat Clear Calc Estimated GFR POC Glucose 162 H Random Glucose Calcium Magnesium Total Bilirubin AST ALT Alkaline Phosphatase Ammonia 48 Total Protein Albumin Vancomycin Trough Microbiology Microbiology Results: Microbiology 04/23/22 18:40 Gram Stain - Final Peritoneal Fluid Anaerobic Culture - Preliminary No growth to date. Body Fluid Culture - Final No growth after 2 days 04/23/22 16:33 Blood Culture - Preliminary Blood - Venous Enterobacter cloacae complex Gram positive cocci 04/23/22 17:21 Blood Culture - Preliminary Blood - Venous Gram positive cocci Assessment and Plan (1) Ascites: Status: Acute (2) End stage liver disease: Status: Acute (3) Hypomagnesemia: Status: Acute (4) Alcoholic cirrhosis: Status: Acute (5) Gram-negative bacteremia: Status: Acute (6) Hepatic encephalopathy: Status: Acute Plan Pt is a 56-year-old male with a PMH significant for?ETOH cirrhosis, ascites, alcohol use disorder, and [id number] DM who presents to the ED after feeling off and not feeling well. Pt will require a hospitalization of at least two nights for treatment of?ascites and hepatic encephalopathy with paracentesis. # decompensated hepatic cirrhosis with ascites and hepatic encephalopathy -likely noncompliant with lactulose at home -Initially talking nonsensically, but is oriented x4 and answers questions appropriately. Ammonia repeated and is 47. Reduce lactulose to 30mg BID given 5 loose stools over 24 hrs -s/p therapeutic paracentesis yesterday with 7.7 L removed. Peritoneal fluid cultures: body fluid culture negative. Anaerobic culture preliminarily negative. No SBP -Hold on further paracentesis given hx SBP unless significantly symptomatic -Given 200ml albumin last night. Intravascularly dry. Give NS @80ml/hr. -Continue furosemide, rifaximin, spironolactone -continue fluid restrictions of 1.5 L and 2 g sodium restrictions -Appreciate GI consult -Monitor mentation -Follow labs # Enterobacter bacteremia -blood culture x1 growing Gram-positive cocci and enterobacter, 2nd blood culture g stain with Gram-positive cocci -Unclear source of enterobacter- pt refuses straight cath to eval for UTI. No SBP -Now with leukopenia 3.2. No other SIRS criteria (tachycardia is r/t etoh withdrawal, not sepsis) -continue vancomycin and ceftriaxone -echocardiogram pending -appreciate ID input #Alcohol withdrawal -Pt denies recent etoh use, but has had significant tachycardia and developed significant tremor and aggitation -EKG showed sinus tachycardia -Continue phenobarb per protocol -Continue CIWA -IV thiamine, folic acid #Non-sustained SVT- likely r/t etoh withdrawal -Electrolytes normal, except for mild hypomagnesemia which has been repleted -Asymptomatic- no intervention needed -Continue telemetry #Chronic low back pain -Dilaudid for severe pain -lidocaine patches #Hyponatremia- recurrent r/t cirrhosis/ascites- resolved -Na <2g daily. -Follow BMP #Hypomagnesemia -Repleted, MG improved to 1.5 -Increase PO mag to 800mg BID -Monitor labs #Lactic acidosis -Chronic, at baseline at 4.1 -Secondary to liver disease, not sepsis #Hyperbilirubinemia -Total bilirubin 3.3, stable at baseline -Monitor #Non insulin-dependent DM2 -Hold metformin -SSI -POC glucose -diabetic diet Full Code DVT Prophylaxis: Lovenox Pt will requires ongoing inpatient stay for management decompensated hepatic cirrhosis with ascites reaccumulation requiring paracentesis and hepatic encephalopathy requiring lactulose with close monitoring of hepatic, renal function, and mental status, now with bacteremia requiring IV antibiotics and expert consultation Time Spent With Patient Time: Total time managing care of this patient today ____ minutes. Quality Stroke Does the patient have a stroke diagnosis?: No VTE Prior VTE?: No VTE Risk Level:: Medical - moderate - high VTE Device Contraindication: N/A - Device Ordered VTE Drug Contraindication: Treatment Not Indicated
[2022-04-26] MEDS: 0.9 % Sodium Chloride 250 ML 80 ML IV (10:16)
[2022-04-26] MEDS: Spironolactone 25 MG TABLET PO (10:17)
[2022-04-26] MEDS: PHENobarbitaL 15 MG TABLET 45 MG PO ×2 (10:18→19:36)
[2022-04-26] MEDS: Furosemide 20 MG TABLET PO (10:19)
[2022-04-26] MEDS: Spironolactone 25 MG TABLET 12.5 MG PO (10:19)
[2022-04-26] MEDS: Thiamine HCL 100 MG in 0.9 % Sodium Chloride 100 ML 202 MG IV (11:00)
[2022-04-26 11:29] LABS: Glucose, Whole Blood 150 mg/dL (60-115)
[2022-04-26 15:32] VITALS: BP 106/68; PULSE 103; RESP 16; TEMP 36.1; O2SAT 99
[2022-04-26 16:37] LABS: Glucose, Whole Blood 255 mg/dL (60-115)
--- NOTE | 2022-04-26 19:07 | PM.EVENT ---
Event Note Date of Service: 04/26/22 Event Note: GI Consult-Full note dictated-Hx via patient and EMR. Imp: Advanced cirrhosis due to EtOH use, but with reported sobriety x 2 years. Despite his advanced liver disease, there does not seem to be any decompensation at the present time time despite a polymicrobial sepsis. His ascites appears to have been negative for SBP. He does not appear encephalopathic at this time and there has been no report of GI bleeding. Rec: Continue supportive care. F/U LFT's, PT/INR, renal function, and CBC as needed. Would give Vitamin K and PRBC's as needed. Treat the underlying sepsis. Thanks Time Spent With Patient Time: Total time managing care of this patient today ____ minutes.
[2022-04-26 19:14] VITALS: BP 104/60; PULSE 108; RESP 16; TEMP 36.2; O2SAT 100
[2022-04-26 19:30] LABS: Glucose, Whole Blood 181 mg/dL (60-115)
[2022-04-26 20:20] LABS: Vancomycin Random 18.2 mcg/mL (15-20)
--- NOTE | 2022-04-26 20:33 | HE.PHANOTE ---
Vancomycin Dosing Dose was decrease yesterday. Level increased to 18.2 after decrease in dose. Will decrease dose to vancomycin 500 mg Q12H. Next trough after two doses to access for efficacy on 04/27. Pharmacy will continue to monitor for renal function. Annie Zuleta, PharmD
[2022-04-26] MEDS: vancomycin HCL 500 MG in 0.9 % Sodium Chloride 100 ML 110 MG IV (22:03)
[2022-04-26 23:45] VITALS: BP 91/52; PULSE 112; RESP 16; TEMP 36.2; O2SAT 94
[2022-04-27 03:24] VITALS: BP 97/55; PULSE 107; RESP 16; TEMP 36.3; O2SAT 98
--- NOTE | 2022-04-27 04:47 | CONS_ITS ---
DATE OF SERVICE: 04/26/2022 REASON FOR CONSULTATION: Cirrhosis with associated ascites. HISTORY OF PRESENT ILLNESS: This has been obtained from the patient and the medical record. Patient is a 56-year-old male with a history of significant alcohol-induced cirrhosis, although he reports sobriety for about 2 years now. He has had complications including ascites, encephalopathy, reported spontaneous bacterial peritonitis, thrombocytopenia, and coagulopathy. He was admitted here on April 23, with some increasing malaise and a sense of feeling poorly. There was no reported GI bleeding. Since admission, he has been found to have a polymicrobial sepsis and has been seen by Dr. Son from Infectious Disease. A paracentesis appears to have been negative for spontaneous bacterial peritonitis. He has been on antibiotics and does report that he is currently feeling better. There has been no reported GI bleeding. At home, he reports that there was no reported hematemesis, melena, nor hematochezia. He denies any obvious jaundice at home. MEDICATIONS: His present medications include IV ceftriaxone, folic acid, Lasix, Dilaudid p.r.n., insulin, lactulose, lidocaine patch, magnesium, omeprazole, Zofran, phenobarbital, Xifaxan, spironolactone, thiamine, and IV vancomycin. PAST MEDICAL HISTORY: Advanced alcohol-induced cirrhosis with associated ascites, hepatic encephalopathy, coagulopathy, and thrombocytopenia. Reported history of spontaneous bacterial peritonitis, sepsis, renal insufficiency, diabetes mellitus, hypertension, decubitus, withdrawal seizures. PAST SURGICAL HISTORY: He denies any significant surgery. SOCIAL HISTORY: He lives with his fiancee. Alcohol abuse with sobriety for 2 years by his report. FAMILY HISTORY: Noncontributory. REVIEW OF SYSTEMS: CONSTITUTIONAL: He has been feeling poorly at home with fatigue and anorexia. He does report he has been feeling better since admission and treatment with antibiotics. CARDIAC: No chest pain. PULMONARY: No coughing or hemoptysis. GI: As above. PHYSICAL EXAMINATION: GENERAL: The patient is alert, cooperative male. He is oriented to person, place and time. SKIN: Warm and dry. Nonjaundiced. HEENT: Anicteric sclerae. NECK: Supple. CARDIAC: Normal S1, S2. ABDOMEN: Soft with some slight distention. There is no focal tenderness or mass. There is no asterixis, but he is tremulous. LABORATORY DATA: White blood cell count 3.2, hemoglobin 7.3. His hemoglobin on admission was 9.1. Platelets 81,000. PT 25.3 with INR 2.1. His PT was 21.2 with an INR of 1.8 on admission. Sodium 137, potassium 3.9, chloride 109, CO2 of 17, BUN 10, creatinine 0.8, total bilirubin 2.5, AST 38, ALT 20, alkaline phosphatase 136, albumin 2.9. His ascites fluid was negative for spontaneous bacterial peritonitis. His CT of the abdomen and pelvis on admission revealed his known cirrhosis and ascites, as well as gallstones, but without any obvious signs of cholecystitis nor biliary obstruction. Pancreas was unremarkable. There was some mild splenomegaly. The GI tract was unremarkable. Chest x-ray was negative for any acute findings. His blood cultures are positive for several organisms including enterococcus, coag negative staph and enterobacter. IMPRESSION/PLAN: Patient is a 56-year-old male with advanced liver disease, admitted now for apparent polymicrobial sepsis. The ascites fluid does not appear consistent with spontaneous bacterial peritonitis, therefore it appears that he has another source of this infection. He is being followed by Dr. Son from Infectious Disease. Despite this, his liver disease is actually fairly stable and he does not show any obvious evidence of encephalopathy on today's exam. He does have some coagulopathy obviously and I would give them a trial of vitamin K to see if it improves. Other than that, he is not having any other complications such as GI bleeding and again the ascites fluid appears to have been negative for spontaneous bacterial peritonitis. I will continue supportive care in regard to his underlying liver disease. Obviously, his relative care home sobriety has helped keep things remained stable. I did encourage him to continue that. I will continue his diuretics, but follow his renal function carefully. At this point, I do not think any other intervention is required in regard to the liver disease. Given his care home sobriety, it would be reasonable for him to be seen at a transplant center if he so desires. His overall clinical condition will need to be taken into account for that as well. Thank you for this consultation. MD JUVENTINO Farnsworth/MARCIA / [id number] POLY
[2022-04-27] MEDS: Omeprazole 20 MG CAPSULE.DR PO (06:11)
[2022-04-27 06:56] VITALS: BP 126/58; PULSE 103; RESP 19; TEMP 37; O2SAT 97
[2022-04-27 06:59] LABS: Anion Gap 11 (12-20); Blood Urea Nitrogen 10 mg/dL (9-16); Calcium 8.1 mg/dL (8.4-10.2); Carbon Dioxide 19 mmol/L (22-29); Chloride 108 mmol/L (96-108); Creatinine Clr Calc Pharmacy 107.5; Estimated Glomerular Filt Rate > 60; Glucose Random 142 mg/dL (60-115); Potassium 3.8 mmol/L (3.3-5.1); Sodium 134 mmol/L (135-145)
--- NOTE | 2022-04-27 07:00 | CA_ITS ---
Transthoracic Echocardiogram Patient (Last, First, Middle): Ritesh Balderas, Gender: Male Date of : 1965 Age: 56 Procedure Date: 04/27/2022 Procedure Type: Transthoracic Echocardiogram Location: S3E Height: 167.64 cm Weight: 81.65 kg BSA: 1.91 m2 Heart Rate: 102 bpm BP: 126 / 58 mmHg Ed Transporter: KELSI Referring MD: Reena CAMILO [employer]: Juan Ramon Shannon MD Symptoms: endocarditis Study Quality: Adequate/Contrast ECG Rhythm: Tachycardia Conclusions: - 1. No obvious vegetation seen on this study 2. Normal LV systolic function with impaired relaxation filling pattern 3. Normal cardiac valvular Dopplers 4. No gross pericardial effusion Findings Procedure Information Contrast agent, definity, is being given per protocol without apparent complications. Left Ventricle Normal left ventricular size, thickness, and systolic function. The visually estimated ejection fraction is between 55-60%. Spectral Doppler is indicative of an impaired relaxation filling pattern. the basal septum is sigmoidal without significant thickening Right Ventricle Normal right ventricular cavity size. Atria The left atrium is normal in size. Interatrial shunt cannot be excluded. The right atrium was not well visualized. Aortic Valve Normal aortic valve structure and function. There is no aortic valve stenosis. There is no aortic valve regurgitation. Mitral Valve Likely normal mitral valve structure and function. There is trace mitral valve regurgitation. There is no mitral valve stenosis. Pulmonic Valve The pulmonic valve was not well visualized. Tricuspid Valve Likely normal tricuspid valve structure and function. Tricuspid regurgitation envelope is inadequate for calculation of right ventricular systolic pressure. Great Vessels All visible segments of the aorta are normal in size. The pulmonary artery was not well visualized. Venous The inferior vena cava is normal in size and collapses greater than 50% with inspiration. Pericardium/Pleural There is no evidence of pericardial effusion. Prior Study Comparison No significant change compared to prior study dated: 04/06/2022. Recommendations, Care & Conclusions Consider a LAZARO if clinically appropriate. Measurements 2D Linear Measurements IVSd: 0.99 0.6-0.9/0.6-1.0 cm LVIDd: 4.73 3.9-5.3/4.2-5.9 cm LVIDd Index: 2.48 2.4-3.2/2.2-3.1 cm/m2 LVIDs: 2.55 2.0-3.6 cm LVPWd: 0.95 0.7-1.1 cm LA Diam: 3.10 2.7-3.8/3.0-4.0 cm LAIDs Index: 1.62 1.5-2.3 cm/m2 LV Mass: 198.42 67-162/88-224 g LV Mass Index: 103.88 43-95/49-115 g/m2 LVOT Diam: 2.10 3.0+(-)1.3 cm 2D Systolic Function EF 4C: 46.20 >55% EF 2C: 47.30 >55% Mitral Valve MV Pk E: 0.99 MV PK A: 0.92 MV Decel Time: 183.00 E/A: 1.10 E'Lateral: 8.92 E'Medial: 7.62 E/E' Med: 13.00 E/E' Lat: 11.10 PHT: 54.00 MVA PHT: 4.07 Decel Box Elder: 5.41 Aortic Valve AoV Pk Donny: 1.33 AoV Mn Donny: 0.96 AoV VTI: 0.25 AoV Pk Grad: 7.00 Aov Mn Grad: 4.00 KAYLYN Cont.VTI: 2.94 LVOT LVOT Pk Donny: 0.99 LVOT Mn Donny: 0.73 LVOT VTI: 0.21 LVOT Pk Grad: 4.00 LVOT Mn Grad: 2.00 LVOT Diam: 2.10 LVOT Area: 3.46 Diastolic Function MV Pk E: 0.99 MV Pk A: 0.92 E/A: 1.10 E'Medial: 7.62 E/E' Med: 13.00 E' Laterial: 8.92 E/E' Lat: 11.10 Right Ventricle TAPSE (mm): 20.30 TVS' Donny: 15.30 Great Vessels Aorta Sinus of Valsalva: 3.60 2.0-3.5 cm Ao Asc: 3.10 2.1-3.4 cm Pulmonary Valve PV Pk Donny: 0.95 Peak PV Grad: 4.00 Updated in Other Vendor System with Status of Final Juan Ramon Shannon MD electronically signed on 04/27/2022 2:25:33 PM with status of Final
[2022-04-27 07:12] LABS: Glucose, Whole Blood 132 mg/dL (60-115)
[2022-04-27] MEDS: Lidocaine 4 % Patch ADH..PATCH 1 PATCH TRANSDERMA (09:14)
[2022-04-27] MEDS: rifAXIMin 550 MG TABLET PO ×2 (09:15→21:44)
[2022-04-27] MEDS: Lactulose 20 GM/30 ML SOLUTION 30 GM PO ×2 (09:15→21:45)
[2022-04-27] MEDS: Folic Acid 1 MG TABLET PO (09:16)
[2022-04-27] MEDS: PHENobarbitaL 15 MG TABLET 45 MG PO ×2 (09:16→21:44)
[2022-04-27] MEDS: Sodium Chloride Tab 1 GM TABLET PO (09:17)
[2022-04-27] MEDS: Furosemide 20 MG TABLET PO (09:17)
[2022-04-27] MEDS: Spironolactone 25 MG TABLET 12.5 MG PO (09:17)
[2022-04-27] MEDS: Spironolactone 25 MG TABLET PO (09:17)
[2022-04-27] MEDS: Magnesium Oxide 400 MG TABLET 800 MG PO ×2 (09:17→21:45)
[2022-04-27] MEDS: 0.9 % Sodium Chloride Flush 3 ML SYRINGE IVFLUSH ×2 (09:18→21:45)
[2022-04-27] MEDS: cefTRIAXone sodium 1 GM in 0.9 % Sodium Chloride 50 ML IV (09:18)
[2022-04-27] MEDS: Thiamine HCL 100 MG in 0.9 % Sodium Chloride 100 ML 202 MG IV (10:36)
[2022-04-27 11:03] LABS: Glucose, Whole Blood 216 mg/dL (60-115)
[2022-04-27] MEDS: vancomycin HCL 500 MG in 0.9 % Sodium Chloride 100 ML 110 MG IV (11:42)
[2022-04-27] MEDS: Insulin Lispro 100 UNIT/ML 3 ML VIAL SUBCUT ×3 (11:42→21:43)
--- NOTE | 2022-04-27 13:19 | P.PNIM_ITS ---
Subjective Subjective Date of Service: 04/27/22 Interval History: Seen in follow-up for hepatic encephalopathy and symptomatic ascites Interval history: Awake,x4. No complaints Review of Systems Review of Systems: Yes all other systems are reviewed and are negative Physical Exam Vital Signs: Vital Signs: Last Vital Signs Temp 98.6 F 04/27/22 06:56 Pulse 103 H 04/27/22 06:56 Resp 19 04/27/22 06:56 BP 126/58 L 04/27/22 06:56 Pulse Ox 97 04/27/22 06:56 O2 Del Method 04/27/22 06:56 BMI result Body Mass Index 29.2 Constitutional - Awake and Alert, No apparent distress Eyes - PERRLA, EOMI Mouth/tongue- dry mucosa and lips Cardiovascular - S1S2, RRR, No edema Respiratory - Normal lung expansion, Normal respiratory effort, No respiratory distress, CTA bilaterally Gastrointestinal - Large softly distended abd, NT, +BS; No rebound or guarding. +fluid wave Extremities - no calf tenderness bilaterally, no swelling Skin - Warm/Dry Neurological - Alert & oriented x4. Psychological - Appropriate affect Objective Data Active Medications Dextrose (Dextrose 50 % 25 Gm/50 Ml Syringe) 25 gm IVPUSH Q15M PRN; Protocol PRN Reason: per Hypoglycemia Standing Ord. Folic Acid (Folic Acid 1 Mg Tablet) 1 mg PO DAILY [facility] Last Admin: 04/27/22 09:16 Dose: 1 mg Documented By: ALEXUS Furosemide (Furosemide 20 Mg Tablet) 20 mg PO DAILY [facility]; Protocol Last Admin: 04/27/22 09:17 Dose: 20 mg Documented By: ALEXUS Glucose (Glucose Gel 15 Gm Gel..Gram.) 15 gm PO Q15M PRN; Protocol PRN Reason: per Hypoglycemia Standing Ord. Guaifenesin/Codeine Phosphate (Guaifen/Codeine Sf 200/20/10ml 10 Ml Liquid) 10 ml PO Q4H PRN PRN Reason: cough Hydromorphone HCl (Hydromorphone Hcl 0.5 Mg/0.5 Ml Syringe) 0.25 mg IVPUSH Q4H PRN; Protocol PRN Reason: Pain, Severe (Pain Scale 7-10) Last Admin: 04/25/22 19:12 Dose: 0.25 mg Documented By: KANDACE Ceftriaxone Sodium 1 gm/ (Sodium Chloride) 50 mls @ 100 mls/hr IV Q24H [facility] Last Infusion: 04/27/22 10:09 Dose: 0 mls/hr Documented By: ALEXUS Thiamine HCl 100 mg/ Sodium (Chloride) 101 mls @ 202 mls/hr IV DAILY [facility] Stop: 04/28/22 09:29 Last Infusion: 04/27/22 11:19 Dose: 0 mls/hr Documented By: ALEXUS Vancomycin HCl 500 mg/ Sodium (Chloride) 110 mls @ 110 mls/hr IV Q12H [facility] Last Admin: 04/27/22 11:42 Dose: 110 mls/hr Documented By: ALEXUS Insulin Human Lispro (Insulin Lispro 100 Unit/Ml 3 Ml Vial) 0 unit SUBCUT QIDACHS [facility]; Protocol Last Admin: 04/27/22 11:42 Dose: 4 unit Documented By: ALEXUS Lactulose (Lactulose 20 Gm/30 Ml Solution) 30 gm PO BID [facility] Last Admin: 04/27/22 09:15 Dose: 30 gm Documented By: ALXEUS Lidocaine (Lidocaine 4 % Patch Adh..Patch) 1 patch TRANSDERMA DAILY [facility]; Protocol Last Admin: 04/27/22 09:14 Dose: 1 patch Documented By: ALEXUS Magnesium Oxide (Magnesium Oxide 400 Mg Tablet) 800 mg PO BID [facility] Last Admin: 04/27/22 09:17 Dose: 800 mg Documented By: ALEXUS Comments: celophane wrapper won't scan Omeprazole (Omeprazole 20 Mg Sada.) 20 mg PO DAILY@0630 [facility] Last Admin: 04/27/22 06:11 Dose: 20 mg Documented By: UCHE Ondansetron HCl (Ondansetron Hcl 4 Mg/2 Ml Vial) 4 mg IVPUSH Q8H PRN PRN Reason: Nausea and Vomiting Pharmacy Consult (Consult Rx Perform Med Rec) 1 each MISCELLANE ONCE PRN PRN Reason: Consult order Pharmacy Consult (Consult Rx Vancomycin Dosing) 1 each MISCELLANE DAILY PRN PRN Reason: Consult order Pharmacy Consult (Consult Rx Etoh Phenob Im/Po) 1 each MISCELLANE ONCE PRN; Protocol PRN Reason: Consult order Phenobarbital (Phenobarbital 15 Mg Tablet) 45 mg PO BID [facility]; Protocol Stop: 04/27/22 21:01 Last Admin: 04/27/22 09:16 Dose: 45 mg Documented By: ALEXUS Phenobarbital (Phenobarbital 15 Mg Tablet) 15 mg PO BID [facility]; Protocol Stop: 04/29/22 21:01 Phenobarbital (Phenobarbital 15 Mg Tablet) 15 mg PO DAILY [facility]; Protocol Stop: 05/01/22 09:01 Rifaximin (Rifaximin 550 Mg Tablet) 550 mg PO BID [facility] Last Admin: 04/27/22 09:15 Dose: 550 mg Documented By: ALEXUS Sodium Chloride (0.9 % Sodium Chloride Flush 3 Ml Syringe) [facility] Admin: 04/27/22 09:18 Dose: 3 ml Documented By: ALEXUS Sodium Chloride (Sodium Chloride Tab 1 Gm Tablet) 1 gm PO DAILY [facility] Last Admin: 04/27/22 09:17 Dose: 1 gm Documented By: ALEXUS Spironolactone (Spironolactone 25 Mg Tablet) 25 mg PO DAILY [facility]; Protocol Last Admin: 04/27/22 09:17 Dose: 25 mg Documented By: ALEXUS Spironolactone (Spironolactone 25 Mg Tablet) 12.5 mg PO DAILY [facility]; Protocol Last Admin: 04/27/22 09:17 Dose: 12.5 mg Documented By: ALEXUS Thiamine HCl (Thiamine Hcl 100 Mg Tablet) 100 mg PO DAILY [facility] Last Admin: 04/26/22 09:24 Dose: 100 mg Documented By: DULCE Labs 04/26/22 05:20 04/27/22 06:10 Labs: Laboratory Results - last 24 hr 04/26/22 04/26/22 04/26/22 15:36 19:17 20:00 Anion Gap Estim Creat Clear Calc Estimated GFR POC Glucose 255 H 181 H Random Glucose Calcium Random Vancomycin 18.2 04/27/22 04/27/22 04/27/22 06:10 06:56 10:57 Anion Gap 11 L Estim Creat Clear Calc 107.5 Estimated GFR > 60 POC Glucose 132 H 216 H Random Glucose 142 H Calcium 8.1 L Random Vancomycin Microbiology Microbiology Results: Microbiology 04/23/22 18:40 Gram Stain - Final Peritoneal Fluid Anaerobic Culture - Preliminary No growth to date. Body Fluid Culture - Final No growth after 2 days 04/23/22 16:33 Blood Culture - Preliminary Blood - Venous Enterobacter cloacae complex Staphylococcus species 04/23/22 17:21 Blood Culture - Preliminary Blood - Venous Enterococcus avium Enterococcus faecalis Coag negative Staphylococcus Coag negative Staphylococcus#2 Assessment and Plan (1) Ascites: Status: Acute (2) End stage liver disease: Status: Acute (3) Hypomagnesemia: Status: Acute (4) Alcoholic cirrhosis: Status: Acute (5) Gram-negative bacteremia: Status: Acute (6) Hepatic encephalopathy: Status: Acute Plan Pt is a 56-year-old male with a PMH significant for?ETOH cirrhosis, ascites, alcohol use disorder, and [id number] DM who presents to the ED after feeling off and not feeling well. Pt will require a hospitalization of at least two nights for treatment of?ascites and hepatic encephalopathy with paracentesis. # decompensated hepatic cirrhosis with ascites and hepatic encephalopathy -likely noncompliant with lactulose at home -Resolved. Continue lactulose 30mg BID with goal 2-3 BMs daily -s/p therapeutic paracentesis with 7.7 L removed. Cultures neg for SBP -Hold on further paracentesis given hx SBP unless significantly symptomatic -Given 200ml albumin -Continue furosemide, rifaximin, spironolactone which was increased to 37.5mg -continue fluid restrictions of 1.8 L and 2 g sodium restrictions -Appreciate GI consult -Monitor mentation -Follow labs # Enterococcus/Enterobacter bacteremia -Continue ceftriaxone and vanco -Final cultures pending. Repeat cultures ordered -echocardiogram pending -appreciate ID input #Alcohol withdrawal -Pt denies recent etoh use, but has had significant tachycardia and developed significant tremor and aggitation -EKG showed sinus tachycardia -Continue phenobarb per protocol -Continue CIWA -IV thiamine, folic acid #Non-sustained SVT- likely r/t etoh withdrawal -Electrolytes normal, except for mild hypomagnesemia which has been repleted -Asymptomatic- no intervention needed -Continue telemetry #Chronic low back pain -Dilaudid for severe pain -lidocaine patches #Hyponatremia- recurrent r/t cirrhosis/ascites- resolved -Na <2g daily. -Follow BMP #Hypomagnesemia -Repleted, MG improved to 1.5 -Increase PO mag to 800mg BID -Monitor labs #Lactic acidosis -Chronic, at baseline at 4.1 -Secondary to liver disease, not sepsis #Hyperbilirubinemia -Total bilirubin 3.3, stable at baseline -Monitor #Non insulin-dependent DM2 -Hold metformin -SSI -POC glucose -diabetic diet #Chronic thrombocytopenia -related to cirrhosis -Monitor platelets closely while on lovenox Full Code DVT Prophylaxis: Lovenox- monitor platelets closely Pt will requires ongoing inpatient stay for management decompensated hepatic cirrhosis with ascites reaccumulation requiring paracentesis and hepatic encephalopathy requiring lactulose with close monitoring of hepatic, renal function, and mental status, now with bacteremia requiring IV antibiotics and expert consultation Time Spent With Patient Time: Total time managing care of this patient today ____ minutes. Quality Stroke Does the patient have a stroke diagnosis?: No VTE Prior VTE?: No VTE Risk Level:: Medical - moderate - high VTE Device Contraindication: N/A - Device Ordered VTE Drug Contraindication: Treatment Not Indicated
[2022-04-27 14:36] LABS: Magnesium 1.6 mg/dL (1.6-2.6)
[2022-04-27 14:49] VITALS: BP 98/52; PULSE 109; RESP 18; TEMP 35.5; O2SAT 99
[2022-04-27 15:15] LABS: Vancomycin Random 15.9 mcg/mL (15-20)
--- NOTE | 2022-04-27 16:27 | MHC.CM.PN ---
EMR REVIEWED, PER HOSPITALIST PT WILL LIKELY NEED LONG-TERM IV ABX, D/T PT'S HX OF NONCOMPLIANCE ANTIC HE WILL NEED STR FOR IV ABX, REFERRAL PLACED TO LOCAL SNF'S, CM WILL DISCUSS PREFERRED SNF'S W/PT, PT HAS BEEN TO [facility] IN PAST, CM WILL CONT TO FOLLOW.
[2022-04-27 16:36] LABS: Glucose, Whole Blood 210 mg/dL (60-115)
[2022-04-27 20:22] LABS: Vancomycin Trough 14.6 mcg/mL (10.0-20.0)
--- NOTE | 2022-04-27 20:35 | HE.PHANOTE ---
VANCOMYCIN DOSING ADDENDUM VANCOMYCIN TROUGH 14.6, ADJUSTING DOSE TO 750 MG Q12H 500 MG Q12H WAS PREDICTING SUBTHERAPEUTIC LEVELS... CREATININE IMPROVING.
[2022-04-27 20:58] LABS: Glucose, Whole Blood 153 mg/dL (60-115)
[2022-04-27] MEDS: vancomycin HCL 750 MG in 0.9 % Sodium Chloride 250 ML 265 MG IV (21:43)
[2022-04-28 04:11] VITALS: BP 91/55; PULSE 110; RESP 16; TEMP 36.5; O2SAT 97
[2022-04-28 05:29] LABS: MANUAL DIFF FLAG NO
[2022-04-28 05:33] LABS: Basophils Percent Auto 0.6 % (0-2); Eosinophils Absolute Auto 0.2 X10*3/uL (0.0-0.4); Eosinophils Percent Auto 3.1 % (0-4); Imm Gran Abs Auto 0.03 X10*3/uL (0.00-0.03); Imm Gran Pct Auto 0.5 % (0.0-0.4); Lymphocytes Absolute Auto 0.9 X10*3/uL (1.2-4.9); Lymphocytes Percent Auto 14.2 % (20-40); Mean Corpuscular Hemoglobin 35.1 pg (27.0-33.0); Mean Corpuscular Volume 103.1 fL (80.0-98.0); Mean Platelet Volume 9.3 fL (9.4-12.4); Monocytes Absolute Auto 0.8 X10*3/uL (0.1-1.2); Monocytes Percent Auto 11.9 % (2-11); Neutrophils Absolute Auto 4.5 x10*3/uL (2.0-8.3); Neutrophils Percent Auto 69.7 % (45-73); Red Blood Count 1.94 X10*6/uL (4.60-5.80); Red Cell Distribution Width 15.9 % (11.0-16.0); White Blood Count 6.5 X10*3/uL (4.8-10.8)
[2022-04-28 05:50] LABS: Platelet Count 63 X10*3/uL (160-400)
[2022-04-28 05:51] LABS: Hemoglobin 6.8 g/dl (14.0-18.0)
--- NOTE | 2022-04-28 05:55 | MHC.PIE ---
p; critical lab h&h 6.8 20.0 i; dr alejandro notified e; will cont o monitor
[2022-04-28] MEDS: Omeprazole 20 MG CAPSULE.DR PO (06:02)
[2022-04-28 06:05] LABS: Anion Gap 13 (12-20); Blood Urea Nitrogen 11 mg/dL (9-16); Calcium 7.6 mg/dL (8.4-10.2); Carbon Dioxide 16 mmol/L (22-29); Chloride 106 mmol/L (96-108); Creatinine Clr Calc Pharmacy 88.3; Estimated Glomerular Filt Rate > 60; Glucose Random 220 mg/dL (60-115); Magnesium 1.7 mg/dL (1.6-2.6); Potassium 4.1 mmol/L (3.3-5.1); Sodium 131 mmol/L (135-145)
[2022-04-28 07:36] LABS: Glucose, Whole Blood 177 mg/dL (60-115)
[2022-04-28 08:00] VITALS: BP 140/66; PULSE 103; RESP 19; TEMP 36.7; O2SAT 100
[2022-04-28] MEDS: Thiamine HCL 100 MG in 0.9 % Sodium Chloride 100 ML 202 MG IV (08:12)
[2022-04-28] MEDS: Insulin Lispro 100 UNIT/ML 3 ML VIAL SUBCUT ×4 (08:12→21:45)
[2022-04-28] MEDS: Spironolactone 25 MG TABLET PO (08:17)
[2022-04-28] MEDS: Folic Acid 1 MG TABLET PO (08:17)
[2022-04-28] MEDS: PHENobarbitaL 15 MG TABLET PO ×2 (08:18→21:46)
[2022-04-28] MEDS: rifAXIMin 550 MG TABLET PO ×2 (08:18→21:46)
[2022-04-28] MEDS: Furosemide 20 MG TABLET PO (08:18)
[2022-04-28] MEDS: Sodium Chloride Tab 1 GM TABLET PO (08:18)
[2022-04-28] MEDS: Spironolactone 25 MG TABLET 12.5 MG PO (08:18)
[2022-04-28] MEDS: Lactulose 20 GM/30 ML SOLUTION 30 GM PO ×2 (08:19→21:48)
[2022-04-28] MEDS: Lidocaine 4 % Patch ADH..PATCH 1 PATCH TRANSDERMA (08:19)
[2022-04-28] MEDS: 0.9 % Sodium Chloride Flush 3 ML SYRINGE IVFLUSH ×2 (08:19→16:33)
[2022-04-28] MEDS: Magnesium Oxide 400 MG TABLET 800 MG PO ×2 (08:20→21:47)
[2022-04-28] MEDS: Phytonadione (Vit K1) Oral 10 MG/ML AMPUL PO (08:37)
[2022-04-28 11:21] VITALS: BP 105/61; PULSE 108; RESP 18; TEMP 36.6
[2022-04-28 11:33] VITALS: BP 103/61; PULSE 108; RESP 18; TEMP 37.1
[2022-04-28 11:39] LABS: Glucose, Whole Blood 213 mg/dL (60-115)
--- NOTE | 2022-04-28 12:09 | P.PNIM_ITS ---
Subjective Subjective Date of Service: 04/28/22 Interval History: C/o abd swelling Tapped every 10-14 days Hb 6.8, consents for transfusion No other complaints Review of Systems Review of Systems: Yes all other systems are reviewed and are negative Physical Exam Vital Signs: Vital Signs: Last Vital Signs Temp 98.8 F 04/28/22 11:33 Pulse 108 H 04/28/22 11:33 Resp 18 04/28/22 11:33 BP 103/61 04/28/22 11:33 Pulse Ox 100 04/28/22 08:00 O2 Del Method 04/28/22 08:00 BMI result Body Mass Index 29.2 Const: Other: Gen: in no acute distress HEENT: sclera anicteric, moist mucus membranes Neck: supple Lungs: clear to auscultation bilaterally Heart: regular rate and rhythm, no murmurs Abd: tense ascites Ext: no edema Skin: warm/well-perfused Neuro: alert and oriented x3, no focal findings, no asterixis Psych: appropriate affect Objective Data Active Medications Dextrose (Dextrose 50 % 25 Gm/50 Ml Syringe) 25 gm IVPUSH Q15M PRN; Protocol PRN Reason: per Hypoglycemia Standing Ord. Folic Acid (Folic Acid 1 Mg Tablet) 1 mg PO DAILY [facility] Last Admin: 04/28/22 08:17 Dose: 1 mg Documented By: ALEXUS Furosemide (Furosemide 20 Mg Tablet) 20 mg PO DAILY [facility]; Protocol Last Admin: 04/28/22 08:18 Dose: 20 mg Documented By: ALEXUS Glucose (Glucose Gel 15 Gm Gel..Gram.) 15 gm PO Q15M PRN; Protocol PRN Reason: per Hypoglycemia Standing Ord. Guaifenesin/Codeine Phosphate (Guaifen/Codeine Sf 200/20/10ml 10 Ml Liquid) 10 ml PO Q4H PRN PRN Reason: cough Hydromorphone HCl (Hydromorphone Hcl 0.5 Mg/0.5 Ml Syringe) 0.25 mg IVPUSH Q4H PRN; Protocol PRN Reason: Pain, Severe (Pain Scale 7-10) Last Admin: 04/25/22 19:12 Dose: 0.25 mg Documented By: KANDACE Ceftriaxone Sodium 1 gm/ (Sodium Chloride) 50 mls @ 100 mls/hr IV Q24H [facility] Last Infusion: 04/27/22 10:09 Dose: 0 mls/hr Documented By: ALEXUS Vancomycin HCl 750 mg/ Sodium (Chloride) 265 mls @ 265 mls/hr IV Q12H [facility] Last Infusion: 04/28/22 00:23 Dose: 0 mls/hr Documented By: LUIS Insulin Human Lispro (Insulin Lispro 100 Unit/Ml 3 Ml Vial) 0 unit SUBCUT QIDACHS [facility]; Protocol Last Admin: 04/28/22 08:12 Dose: 2 unit Documented By: ALEXUS Lactulose (Lactulose 20 Gm/30 Ml Solution) 30 gm PO BID [facility] Last Admin: 04/28/22 08:19 Dose: 30 gm Documented By: ALEXUS Lidocaine (Lidocaine 4 % Patch Adh..Patch) 1 patch TRANSDERMA DAILY [facility]; Protocol Last Admin: 04/28/22 08:19 Dose: 1 patch Documented By: ALEXUS Magnesium Oxide (Magnesium Oxide 400 Mg Tablet) 800 mg PO BID [facility] Last Admin: 04/28/22 08:20 Dose: 800 mg Documented By: ALEXUS Comments: can't scan celophane wrapper Omeprazole (Omeprazole 20 Mg Capsule.Dr) 20 mg PO DAILY@0630 [facility] Last Admin: 04/28/22 06:02 Dose: 20 mg Documented By: LUIS Ondansetron HCl (Ondansetron Hcl 4 Mg/2 Ml Vial) 4 mg IVPUSH Q8H PRN PRN Reason: Nausea and Vomiting Pharmacy Consult (Consult Rx Perform Med Rec) 1 each MISCELLANE ONCE PRN PRN Reason: Consult order Pharmacy Consult (Consult Rx Vancomycin Dosing) 1 each MISCELLANE DAILY PRN PRN Reason: Consult order Pharmacy Consult (Consult Rx Etoh Phenob Im/Po) 1 each MISCELLANE ONCE PRN; Protocol PRN Reason: Consult order Phenobarbital (Phenobarbital 15 Mg Tablet) 15 mg PO BID [facility]; Protocol Stop: 04/29/22 21:01 Last Admin: 04/28/22 08:18 Dose: 15 mg Documented By: ALEXUS Phenobarbital (Phenobarbital 15 Mg Tablet) 15 mg PO DAILY [facility]; Protocol Stop: 05/01/22 09:01 Rifaximin (Rifaximin 550 Mg Tablet) 550 mg PO BID [facility] Last Admin: 04/28/22 08:18 Dose: 550 mg Documented By: ALEXUS Sodium Chloride (0.9 % Sodium Chloride Flush 3 Ml Syringe) 3 ml IVFLUSH QSHIFT [facility] Last Admin: 04/28/22 08:19 Dose: 3 ml Documented By: ALEXUS Sodium Chloride (Sodium Chloride Tab 1 Gm Tablet) 1 gm PO DAILY [facility] Last Admin: 04/28/22 08:18 Dose: 1 gm Documented By: ALEXUS Spironolactone (Spironolactone 25 Mg Tablet) 25 mg PO DAILY [facility]; Protocol Last Admin: 04/28/22 08:17 Dose: 25 mg Documented By: ALEXUS Spironolactone (Spironolactone 25 Mg Tablet) 12.5 mg PO DAILY [facility]; Protocol Last Admin: 04/28/22 08:18 Dose: 12.5 mg Documented By: ALEXUS Thiamine HCl (Thiamine Hcl 100 Mg Tablet) 100 mg PO DAILY [facility] Last Admin: 04/26/22 09:24 Dose: 100 mg Documented By: DULCE Labs 04/28/22 05:22 04/28/22 05:22 Labs: Laboratory Results - last 24 hr 04/27/22 04/27/22 04/27/22 06:10 14:39 16:21 MCV MCH MCHC RDW Plt Count MPV Immature Gran % (Auto) Neut % (Auto) Lymph % (Auto) [place] % (Auto) Eos % (Auto) Baso % (Auto) Lymph # (Auto) [place] # (Auto) Eos # (Auto) Baso # (Auto) Abs Immat Gran (auto) Absolute Neuts (auto) Absolute Nucleated RBC Nucleated RBC % (auto) Anion Gap Estim Creat Clear Calc Estimated GFR POC Glucose 210 H Random Glucose Calcium Magnesium 1.6 Vancomycin Trough Random Vancomycin 15.9 Blood Type Antibody Screen Crossmatch 04/27/22 04/27/22 04/28/22 19:56 20:31 05:22 MCV 103.1 H MCH 35.1 H MCHC 34.0 RDW 15.9 Plt Count 63 L MPV 9.3 L Immature Gran % (Auto) 0.5 H Neut % (Auto) 69.7 Lymph % (Auto) 14.2 L [place] % (Auto) 11.9 H Eos % (Auto) 3.1 Baso % (Auto) 0.6 Lymph # (Auto) 0.9 L [place] # (Auto) 0.8 Eos # (Auto) 0.2 Baso # (Auto) 0.0 Abs Immat Gran (auto) 0.03 Absolute Neuts (auto) 4.5 Absolute Nucleated RBC 0.000 Nucleated RBC % (auto) 0.0 Anion Gap Estim Creat Clear Calc Estimated GFR POC Glucose 153 H Random Glucose Calcium Magnesium Vancomycin Trough 14.6 Random Vancomycin Blood Type Antibody Screen Crossmatch 04/28/22 04/28/22 04/28/22 05:22 06:23 07:20 MCV MCH MCHC RDW Plt Count MPV Immature Gran % (Auto) Neut % (Auto) Lymph % (Auto) [place] % (Auto) Eos % (Auto) Baso % (Auto) Lymph # (Auto) [place] # (Auto) Eos # (Auto) Baso # (Auto) Abs Immat Gran (auto) Absolute Neuts (auto) Absolute Nucleated RBC Nucleated RBC % (auto) Anion Gap 13 Estim Creat Clear Calc 88.3 Estimated GFR > 60 POC Glucose 177 H Random Glucose 220 H Calcium 7.6 L D Magnesium 1.7 Vancomycin Trough Random Vancomycin Blood Type O Negative Antibody Screen NEGATIVE Crossmatch See Detail 04/28/22 11:36 MCV MCH MCHC RDW Plt Count MPV Immature Gran % (Auto) Neut % (Auto) Lymph % (Auto) [place] % (Auto) Eos % (Auto) Baso % (Auto) Lymph # (Auto) [place] # (Auto) Eos # (Auto) Baso # (Auto) Abs Immat Gran (auto) Absolute Neuts (auto) Absolute Nucleated RBC Nucleated RBC % (auto) Anion Gap Estim Creat Clear Calc Estimated GFR POC Glucose 213 H Random Glucose Calcium Magnesium Vancomycin Trough Random Vancomycin Blood Type Antibody Screen Crossmatch TTE 04/27/22 ?1. No obvious vegetation seen on this study? 2. Normal LV systolic function with impaired relaxation filling? pattern? 3. Normal cardiac valvular Dopplers? 4. No gross pericardial effusion ? Microbiology Microbiology Results: Microbiology 04/23/22 18:40 Gram Stain - Final Peritoneal Fluid Anaerobic Culture - Preliminary No growth to date. Body Fluid Culture - Final No growth after 2 days 04/23/22 17:21 Blood Culture - Preliminary Blood - Venous Enterococcus avium Enterococcus faecalis Coag negative Staphylococcus Coag negative Staphylococcus#2 04/23/22 16:33 Blood Culture - Preliminary Blood - Venous Enterobacter cloacae complex Coag negative Staphylococcus Assessment and Plan (1) Ascites: Status: Acute (2) End stage liver disease: Status: Acute (3) Hypomagnesemia: Status: Acute (4) Alcoholic cirrhosis: Status: Acute (5) Gram-negative bacteremia: Status: Acute (6) Hepatic encephalopathy: Status: Acute Plan hospital d#6 56-year-old male with?EtOH cirrhosis, ascites, alcohol use disorder, and [id number] DM who presented to the ED after feeling off and not feeling well admitted for ascites + hepatic encephalopathy, found to have polymicrobial bacteremia without SBP # decompensated hepatic cirrhosis with ascites and hepatic encephalopathy - likely noncompliant with lactulose at home - encephalopathy resolved; continue lactulose 30mg bid with goal 2-3 BMs daily; continue rifaximin - s/p therapeutic paracentesis 04/24/21 with 7.7 L removed and 200 mL 25% albumin given. Cultures neg for SBP. Repeat therapeutic paracentesis tomorrow. - continue furosemide + spironolactone - continue sodium restriction 2g/d - appreciate GI consultation # Enterococcus/Enterobacter bacteremia E avium E faecalis M.I.C. RX M.I.C. RX --------- --- --------- --- Ampicillin <=2 S <=2 S Vancomycin <=0.5 S 2 S Ent colt cp M.I.C. RX --------- --- Cefazolin >=64 R Ertapenem <=0.12 S Gentamicin <=1 S Levofloxacin <=0.12 S Trimethoprim/Sulfamethoxazole >=320 R - ceftriaxone 04/24- - vancomycin 04/24- - ID consulted. repeat BCx 04/27 pending - CT A/P 04/23 no signs of bowel perforation # alcohol withdrawal - pt denies recent EtOH use, but has had significant tachycardia and developed significant tremor and agitation so was started on phenobarb taper - continue thiamine + folate supplementation # macrocytic anemia - check B12 + folate + FOBT. transfuse 1u pRBCs and recheck H+H in AM # non-sustained SVT - likely related to EtOH withdrawal, resolved # hypoNa - due to cirrhosis; stable; fluid restrict 1800 mL/d # hypoMg - repleted, continue maintenance # chronic low back pain - lidocaine patches, prn IV hydromorphone # lactic acidosis - chronic, due to cirrhosis, not sepsis # thrombocytopenia - chronic, due to cirrhosis # DM2 - hold MTF, give correction-dose lispro # VTE ppx: SCDs # dispo: TBD In my clinical judgment, the patient requires continued inpatient hospitalization for the following reasons: IV ABX+ blood transfusion Time Spent With Patient Time: Total time managing care of this patient today __50__ minutes. Quality Stroke Does the patient have a stroke diagnosis?: No VTE Prior VTE?: No VTE Risk Level:: Medical - moderate - high VTE Device Contraindication: N/A - Device Ordered VTE Drug Contraindication: Treatment Not Indicated
[2022-04-28 13:37] LABS: Folate 16.8 ng/mL (> or = 4.0); Vitamin B12 799 pg/mL (200-900)
[2022-04-28] MEDS: cefTRIAXone sodium 1 GM in 0.9 % Sodium Chloride 50 ML IV (14:35)
[2022-04-28] MEDS: levoFLOXacin 750 MG TABLET PO (14:36)
--- NOTE | 2022-04-28 14:36 | PM.IDPN ---
Subjective Subjective Date of Service: 04/28/22 Critical Care Time (minutes): 15 Comment: he is sleepy Objective Data Labs 04/28/22 05:22 04/28/22 05:22 Labs: Laboratory Results - last 24 hr 04/27/22 04/27/22 04/27/22 06:10 14:39 16:21 WBC RBC Hgb Hct MCV MCH MCHC RDW Plt Count MPV Immature Gran % (Auto) Neut % (Auto) Lymph % (Auto) [place] % (Auto) Eos % (Auto) Baso % (Auto) Lymph # (Auto) [place] # (Auto) Eos # (Auto) Baso # (Auto) Abs Immat Gran (auto) Absolute Neuts (auto) Absolute Nucleated RBC Nucleated RBC % (auto) Sodium Potassium Chloride Carbon Dioxide Anion Gap BUN Creatinine Estim Creat Clear Calc Estimated GFR POC Glucose 210 H Random Glucose Calcium Magnesium 1.6 Vitamin B12 Folate Vancomycin Trough Random Vancomycin 15.9 Blood Type Antibody Screen Crossmatch 04/27/22 04/27/22 04/28/22 19:56 20:31 05:22 WBC 6.5 RBC 1.94 L Hgb 6.8 L* Hct 20.0 L* MCV 103.1 H MCH 35.1 H MCHC 34.0 RDW 15.9 Plt Count 63 L MPV 9.3 L Immature Gran % (Auto) 0.5 H Neut % (Auto) 69.7 Lymph % (Auto) 14.2 L [place] % (Auto) 11.9 H Eos % (Auto) 3.1 Baso % (Auto) 0.6 Lymph # (Auto) 0.9 L [place] # (Auto) 0.8 Eos # (Auto) 0.2 Baso # (Auto) 0.0 Abs Immat Gran (auto) 0.03 Absolute Neuts (auto) 4.5 Absolute Nucleated RBC 0.000 Nucleated RBC % (auto) 0.0 Sodium Potassium Chloride Carbon Dioxide Anion Gap BUN Creatinine Estim Creat Clear Calc Estimated GFR POC Glucose 153 H Random Glucose Calcium Magnesium Vitamin B12 Folate Vancomycin Trough 14.6 Random Vancomycin Blood Type Antibody Screen Crossmatch 04/28/22 04/28/22 04/28/22 05:22 06:23 07:20 WBC RBC Hgb Hct MCV MCH MCHC RDW Plt Count MPV Immature Gran % (Auto) Neut % (Auto) Lymph % (Auto) [place] % (Auto) Eos % (Auto) Baso % (Auto) Lymph # (Auto) [place] # (Auto) Eos # (Auto) Baso # (Auto) Abs Immat Gran (auto) Absolute Neuts (auto) Absolute Nucleated RBC Nucleated RBC % (auto) Sodium 131 L Potassium 4.1 Chloride 106 Carbon Dioxide 16 L Anion Gap 13 BUN 11 Creatinine 0.95 Estim Creat Clear Calc 88.3 Estimated GFR > 60 POC Glucose 177 H Random Glucose 220 H Calcium 7.6 L D Magnesium 1.7 Vitamin B12 799 Folate 16.8 Vancomycin Trough Random Vancomycin Blood Type O Negative Antibody Screen NEGATIVE Crossmatch See Detail 04/28/22 11:36 WBC RBC Hgb Hct MCV MCH MCHC RDW Plt Count MPV Immature Gran % (Auto) Neut % (Auto) Lymph % (Auto) [place] % (Auto) Eos % (Auto) Baso % (Auto) Lymph # (Auto) [place] # (Auto) Eos # (Auto) Baso # (Auto) Abs Immat Gran (auto) Absolute Neuts (auto) Absolute Nucleated RBC Nucleated RBC % (auto) Sodium Potassium Chloride Carbon Dioxide Anion Gap BUN Creatinine Estim Creat Clear Calc Estimated GFR POC Glucose 213 H Random Glucose Calcium Magnesium Vitamin B12 Folate Vancomycin Trough Random Vancomycin Blood Type Antibody Screen Crossmatch Microbiology Microbiology Results: Microbiology 04/23/22 17:21 Blood - Venous Blood Culture - Preliminary Enterococcus avium Enterococcus faecalis Coag negative Staphylococcus Coag negative Staphylococcus#2 04/23/22 18:40 Peritoneal Fluid Gram Stain - Final 04/23/22 18:40 Peritoneal Fluid Anaerobic Culture - Preliminary No growth to date. 04/23/22 18:40 Peritoneal Fluid Body Fluid Culture - Final No growth after 2 days 04/23/22 16:33 Blood - Venous Blood Culture - Preliminary Enterobacter cloacae complex Coag negative Staphylococcus Physical Exam Vital Signs: Vital Signs: Last Vital Signs Temp 98.8 F 04/28/22 11:33 Pulse 108 H 04/28/22 11:33 Resp 18 04/28/22 11:33 BP 103/61 04/28/22 11:33 Pulse Ox 100 04/28/22 08:00 O2 Del Method 04/28/22 08:00 BMI result Body Mass Index 29.2 Const: General: cooperative HEENT: Head: Yes normal to inspection Mouth: Normal oral and palatal mucosa present Resp: Effort & Inspection: normal respiratory effort Cardio: Rate: regular rate Rhythm: regular rhythm GI: Palpation (GI): nontender and Ascites present Assessment and Plan Assessment and plan (1) Hepatic encephalopathy: Status: Acute (2) Ascites: Status: Acute (3) End stage liver disease: Status: Acute (4) Gram-negative bacteremia: Problem details: He has enterococcus avium,enterococcus faecalis and coagulase negative staph blood Status: Acute Plan I think coagulase negative staph is contaminant so no Vancomycin enterococcus likely due to bacterial translocation gut (SBP) although doesnt meet absolute parameters for diagnosis Po Levaquin 750 mg daily for 14 days. Prophylaxis after with Levaquin po ,,Wednesday Follow GI Time Spent With Patient Time: Total time managing care of this patient today ____ minutes.
[2022-04-28 14:44] VITALS: BP 104/65; PULSE 99; RESP 18; TEMP 36.7
[2022-04-28 15:53] VITALS: BP 110/71; PULSE 102; RESP 19; TEMP 36.7; O2SAT 99
[2022-04-28 16:19] LABS: Glucose, Whole Blood 188 mg/dL (60-115)
[2022-04-28 20:36] LABS: Glucose, Whole Blood 262 mg/dL (60-115)
[2022-04-29] VITALS: PULSE 108; RESP 20
[2022-04-29] MEDS: 0.9 % Sodium Chloride Flush 3 ML SYRINGE IVFLUSH ×2 (00:16→08:59)
[2022-04-29 02:08] VITALS: BP 96/51; PULSE 112; RESP 18; TEMP 36.3; O2SAT 98
[2022-04-29] MEDS: Omeprazole 20 MG CAPSULE.DR PO (06:19)
[2022-04-29 06:35] LABS: Prothrombin Time 23.3 SEC (10.0-13.1)
[2022-04-29 06:50] LABS: Hematocrit 21.7 % (42.0-52.0); Hemoglobin 7.5 g/dl (14.0-18.0); Mean Corpuscular HGB Conc 34.6 g/dl (31.0-36.0); Mean Corpuscular Hemoglobin 34.2 pg (27.0-33.0); Mean Corpuscular Volume 99.1 fL (80.0-98.0); Mean Platelet Volume 9.8 fL (9.4-12.4); Red Blood Count 2.19 X10*6/uL (4.60-5.80); Red Cell Distribution Width 17.5 % (11.0-16.0); White Blood Count 6.6 X10*3/uL (4.8-10.8)
[2022-04-29 06:59] LABS: Platelet Count 65 X10*3/uL (160-400)
[2022-04-29 07:00] VITALS: BP 90/50; PULSE 109; RESP 20; TEMP 36.6; O2SAT 98
[2022-04-29 07:06] LABS: Alanine Aminotransferase 31 U/L (0-40); Albumin Level 2.3 g/dL (3.5-5.0); Alkaline Phosphatase 183 U/L (39-117); Anion Gap 12 (12-20); Aspartate Amino Transferase 48 U/L (5-37); Bilirubin Total 4.9 mg/dL (0.0-1.0); Blood Urea Nitrogen 14 mg/dL (9-16); Calcium 7.7 mg/dL (8.4-10.2); Carbon Dioxide 17 mmol/L (22-29); Chloride 105 mmol/L (96-108); Creatinine Clr Calc Pharmacy 106.2; Estimated Glomerular Filt Rate > 60; Glucose Random 195 mg/dL (60-115); Magnesium 1.8 mg/dL (1.6-2.6); Potassium 4.4 mmol/L (3.3-5.1); Sodium 130 mmol/L (135-145); Total Protein 4.8 g/dL (6.5-8.0)
[2022-04-29 07:17] LABS: Glucose, Whole Blood 179 mg/dL (60-115)
[2022-04-29] MEDS: Insulin Lispro 100 UNIT/ML 3 ML VIAL SUBCUT ×3 (08:52→16:53)
[2022-04-29 08:56] VITALS: BP 120/71; PULSE 109; RESP 18; O2SAT 97
[2022-04-29] MEDS: Lactulose 20 GM/30 ML SOLUTION 30 GM PO ×3 (08:56→21:37)
[2022-04-29] MEDS: Lidocaine 4 % Patch ADH..PATCH 1 PATCH TRANSDERMA (08:58)
[2022-04-29 10:57] LABS: OBS Int Ctl Valid YES
--- NOTE | 2022-04-29 11:31 | MHC.CM.PN ---
EMR REVIEWED, PER HOSPITALIST ANTIC PT WILL D/C HOME TOMORROW ON ORAL ABX AND RESUMP OF [facility], PT WILL NEED TRANSPORT HOME.
[2022-04-29] MEDS: Lidocaine HCl 1 % MPF 5 ML VIAL SUBCUT (12:20)
[2022-04-29 12:40] LABS: Glucose, Whole Blood 186 mg/dL (60-115)
[2022-04-29] MEDS: levoFLOXacin 750 MG TABLET PO (12:59)
[2022-04-29] MEDS: Albumin Human 25 % 100 ML IV ×2 (12:59→14:58)
[2022-04-29] MEDS: Spironolactone 25 MG TABLET PO (13:06)
[2022-04-29] MEDS: Folic Acid 1 MG TABLET PO (13:06)
[2022-04-29] MEDS: PHENobarbitaL 15 MG TABLET PO ×2 (13:07→21:38)
[2022-04-29] MEDS: Sodium Chloride Tab 1 GM TABLET PO (13:07)
[2022-04-29] MEDS: rifAXIMin 550 MG TABLET PO ×2 (13:07→21:38)
[2022-04-29] MEDS: Furosemide 20 MG TABLET PO (13:07)
[2022-04-29] MEDS: Spironolactone 25 MG TABLET 12.5 MG PO (13:07)
[2022-04-29] MEDS: Magnesium Oxide 400 MG TABLET 800 MG PO ×2 (13:08→21:39)
--- NOTE | 2022-04-29 14:42 | HO.PM.IMPN ---
Subjective Subjective Date of Service: 04/29/22 Interval History: tolerated transfusion awaiting final BCx refused PT eval Review of Systems Review of Systems: Yes all other systems are reviewed and are negative Physical Exam Vital Signs: Vital Signs: Last Vital Signs Temp 97.8 F 04/29/22 07:00 Pulse 109 H 04/29/22 08:56 Resp 18 04/29/22 08:56 BP 120/71 04/29/22 08:56 Pulse Ox 97 04/29/22 08:56 O2 Del Method 04/29/22 08:56 BMI result Body Mass Index 29.2 Const: Other: Gen: in no acute distress HEENT: sclera anicteric, moist mucus membranes Neck: supple Lungs: clear to auscultation bilaterally Heart: regular rate and rhythm, no murmurs Abd: tense ascites Ext: no edema Skin: warm/well-perfused Neuro: alert and oriented x3, asterixis present Psych: appropriate affect Objective Data Active Medications Dextrose (Dextrose 50 % 25 Gm/50 Ml Syringe) 25 gm IVPUSH Q15M PRN; Protocol PRN Reason: per Hypoglycemia Standing Ord. Folic Acid (Folic Acid 1 Mg Tablet) 1 mg PO DAILY [facility] Last Admin: 04/29/22 13:06 Dose: 1 mg Documented By: ALEXUS Furosemide (Furosemide 20 Mg Tablet) 20 mg PO DAILY [facility]; Protocol Last Admin: 04/29/22 13:07 Dose: 20 mg Documented By: ALEXUS Glucose (Glucose Gel 15 Gm Gel..Gram.) 15 gm PO Q15M PRN; Protocol PRN Reason: per Hypoglycemia Standing Ord. Guaifenesin/Codeine Phosphate (Guaifen/Codeine Sf 200/20/10ml 10 Ml Liquid) 10 ml PO Q4H PRN PRN Reason: cough Hydromorphone HCl (Hydromorphone Hcl 0.5 Mg/0.5 Ml Syringe) 0.25 mg IVPUSH Q4H PRN; Protocol PRN Reason: Pain, Severe (Pain Scale 7-10) Last Admin: 04/25/22 19:12 Dose: 0.25 mg Documented By: KANDACE Insulin Human Lispro (Insulin Lispro 100 Unit/Ml 3 Ml Vial) 0 unit SUBCUT QIDACHS [facility]; Protocol Last Admin: 04/29/22 12:59 Dose: 2 unit Documented By: ALEXUS Lactulose (Lactulose 20 Gm/30 Ml Solution) 30 gm PO BID [facility] Last Admin: 04/29/22 08:56 Dose: 30 gm Documented By: ALEXUS Levofloxacin (Levofloxacin 750 Mg Tablet) 750 mg PO Q24H [facility] Last Admin: 04/29/22 12:59 Dose: 750 mg Documented By: ALEXUS Lidocaine (Lidocaine 4 % Patch Adh..Patch) 1 patch TRANSDERMA DAILY [facility]; Protocol Last Admin: 04/29/22 08:58 Dose: 1 patch Documented By: ALEXUS Magnesium Oxide (Magnesium Oxide 400 Mg Tablet) 800 mg PO BID [facility] Last Admin: 04/29/22 13:08 Dose: 800 mg Documented By: ALEXUS Comments: celophmaria del carmen wrapper Omeprazole (Omeprazole 20 Mg Capsule.Dr) 20 mg PO DAILY@0630 [facility] Last Admin: 04/29/22 06:19 Dose: 20 mg Documented By: KRISTINE Ondansetron HCl (Ondansetron Hcl 4 Mg/2 Ml Vial) 4 mg IVPUSH Q8H PRN PRN Reason: Nausea and Vomiting Pharmacy Consult (Consult Rx Perform Med Rec) 1 each MISCELLANE ONCE PRN PRN Reason: Consult order Pharmacy Consult (Consult Rx Etoh Phenob Im/Po) 1 each MISCELLANE ONCE PRN; Protocol PRN Reason: Consult order Phenobarbital (Phenobarbital 15 Mg Tablet) 15 mg PO BID [facility]; Protocol Stop: 04/29/22 21:01 Last Admin: 04/29/22 13:07 Dose: 15 mg Documented By: ALEXUS Phenobarbital (Phenobarbital 15 Mg Tablet) 15 mg PO DAILY [facility]; Protocol Stop: 05/01/22 09:01 Rifaximin (Rifaximin 550 Mg Tablet) 550 mg PO BID [facility] Last Admin: 04/29/22 13:07 Dose: 550 mg Documented By: ALEXUS Sodium Chloride (0.9 % Sodium Chloride Flush 3 Ml Syringe) 3 ml IVFLUSH QSHIFT [facility] Last Admin: 04/29/22 08:59 Dose: 3 ml Documented By: ALEXUS Sodium Chloride (Sodium Chloride Tab 1 Gm Tablet) 1 gm PO DAILY [facility] Last Admin: 04/29/22 13:07 Dose: 1 gm Documented By: ALEXUS Spironolactone (Spironolactone 25 Mg Tablet) 25 mg PO DAILY [facility]; Protocol Last Admin: 04/29/22 13:06 Dose: 25 mg Documented By: ALEXUS Spironolactone (Spironolactone 25 Mg Tablet) 12.5 mg PO DAILY [facility]; Protocol Last Admin: 04/29/22 13:07 Dose: 12.5 mg Documented By: ALEXUS Thiamine HCl (Thiamine Hcl 100 Mg Tablet) 100 mg PO DAILY [facility] Last Admin: 04/26/22 09:24 Dose: 100 mg Documented By: DULCE Labs 04/29/22 05:28 04/29/22 05:28 Labs: Laboratory Results - last 24 hr 04/28/22 04/28/22 04/28/22 06:23 15:51 19:58 MCV MCH MCHC RDW Plt Count MPV Absolute Nucleated RBC Nucleated RBC % (auto) PT INR Anion Gap Estim Creat Clear Calc Estimated GFR POC Glucose 188 H Random Glucose Calcium Magnesium Total Bilirubin AST ALT Alkaline Phosphatase Total Protein Albumin Vancomycin Trough 11.0 Crossmatch See Detail 04/28/22 04/29/22 04/29/22 20:24 05:28 05:28 MCV 99.1 H MCH 34.2 H MCHC 34.6 RDW 17.5 H Plt Count 65 L MPV 9.8 Absolute Nucleated RBC 0.000 Nucleated RBC % (auto) 0.0 PT 23.3 H INR 2.0 H Anion Gap Estim Creat Clear Calc Estimated GFR POC Glucose 262 H Random Glucose Calcium Magnesium Total Bilirubin AST ALT Alkaline Phosphatase Total Protein Albumin Vancomycin Trough Crossmatch 04/29/22 04/29/22 04/29/22 05:28 06:58 12:22 MCV MCH MCHC RDW Plt Count MPV Absolute Nucleated RBC Nucleated RBC % (auto) PT INR Anion Gap 12 Estim Creat Clear Calc 106.2 Estimated GFR > 60 POC Glucose 179 H 186 H Random Glucose 195 H Calcium 7.7 L Magnesium 1.8 Total Bilirubin 4.9 H AST 48 H ALT 31 Alkaline Phosphatase 183 H Total Protein 4.8 L Albumin 2.3 L Vancomycin Trough Crossmatch Microbiology Microbiology Results: Microbiology 04/23/22 18:40 Gram Stain - Final Peritoneal Fluid Anaerobic Culture - Final NO GROWTH AFTER 5 DAYS Body Fluid Culture - Final No growth after 2 days 04/23/22 17:21 Blood Culture - Final Blood - Venous Enterococcus avium Enterococcus faecalis Coag negative Staphylococcus Coag negative Staphylococcus#2 04/23/22 16:33 Blood Culture - Final Blood - Venous Enterobacter cloacae complex Coag negative Staphylococcus 04/27/22 14:39 Blood Culture - Preliminary Blood - Venous No growth after 24 hours. 04/27/22 14:39 Blood Culture - Preliminary Blood - Venous No growth after 24 hours. Assessment and Plan (1) Ascites: Status: Acute (2) End stage liver disease: Status: Acute (3) Hypomagnesemia: Status: Acute (4) Alcoholic cirrhosis: Status: Acute (5) Gram-negative bacteremia: Status: Acute (6) Hepatic encephalopathy: Status: Acute Plan hospital d#7 56-year-old male with?EtOH cirrhosis, ascites, alcohol use disorder, and [id number] DM who presented to the ED after feeling off and not feeling well admitted for ascites + hepatic encephalopathy, found to have polymicrobial bacteremia without SBP # decompensated hepatic cirrhosis with ascites and hepatic encephalopathy - likely noncompliant with lactulose at home - encephalopathy resolved; increase lactulose to 30 mg tid with goal 2-3 BMs daily; continue rifaximin - s/p therapeutic paracentesis 04/24/21 with 7.7 L removed and 200 mL 25% albumin given. Cultures neg for SBP. Repeat therapeutic paracentesis today- will give albumin again - continue furosemide + spironolactone - continue sodium restriction 2g/d - appreciate GI consultation # Enterococcus/Enterobacter bacteremia E avium E faecalis M.I.C. RX M.I.C. RX --------- --- --------- --- Ampicillin <=2 S <=2 S Vancomycin <=0.5 S 2 S Ent colt cp M.I.C. RX --------- --- Cefazolin >=64 R Ertapenem <=0.12 S Gentamicin <=1 S Levofloxacin <=0.12 S Trimethoprim/Sulfamethoxazole >=320 R - ID consulted. repeat BCx 04/27 pending finals. levofloxacin x 14d, 04/28-05/11/22, then [facility] for prophylaxis - CT A/P 04/23 no signs of bowel perforation # alcohol withdrawal - pt denies recent EtOH use, but has had significant tachycardia and developed significant tremor and agitation so was started on phenobarb taper - continue thiamine + folate supplementation # macrocytic anemia - B12+ folate normal. transfused 1u pRBCs yesterday, H+H improved. FOBT pending. # non-sustained SVT - likely related to EtOH withdrawal, resolved # hypoNa - due to cirrhosis; stable; fluid restrict 1800 mL/d # hypoMg - repleted, continue maintenance # chronic low back pain - lidocaine patches, prn IV hydromorphone # lactic acidosis - chronic, due to cirrhosis, not sepsis # thrombocytopenia - chronic, due to cirrhosis # DM2 - hold MTF, give correction-dose lispro # VTE ppx: SCDs # dispo: TBD In my clinical judgment, the patient requires continued inpatient hospitalization for the following reasons: final BCx, severe anemia, hepatic encephalopathy Time Spent With Patient Time: Total time managing care of this patient today __35__ minutes. Quality Stroke Does the patient have a stroke diagnosis?: No VTE Prior VTE?: No VTE Risk Level:: Medical - moderate - high VTE Device Contraindication: N/A - Device Ordered VTE Drug Contraindication: Treatment Not Indicated
[2022-04-29 14:47] LABS: OBS1 NEGATIVE (NEGATIVE)
[2022-04-29 15:13] VITALS: BP 100/57; PULSE 110; RESP 17; TEMP 36.4; O2SAT 100
--- NOTE | 2022-04-29 16:15 | MHC.CM.PN ---
CM MET W/PT'S S.O/CAREGIVER AKBAR AT BEDSIDE, AKBAR REPORTS THAT IT IS NOT HER THAT DOESN'T WANT PT TO RETURN IT IS THE [facility] AND [facility] [phone] THAT DO NOT WANT PT TO RETURN D/T PT'S YELLING AND DISTURBING OTHER TENANTS, CM WILL FOLLOW UP W/THIS IN AM.
[2022-04-29 16:28] LABS: Glucose, Whole Blood 272 mg/dL (60-115)
[2022-04-29 18:59] VITALS: BP 107/58; PULSE 108; RESP 16; TEMP 36.6; O2SAT 99
[2022-04-29 20:33] LABS: Glucose, Whole Blood 138 mg/dL (60-115)
[2022-04-30] VITALS: BP 101/56; PULSE 108; RESP 18; TEMP 36.5; O2SAT 99
[2022-04-30 06:59] LABS: Hematocrit 22.5 % (42.0-52.0); Hemoglobin 7.7 g/dl (14.0-18.0); Mean Corpuscular HGB Conc 34.2 g/dl (31.0-36.0); Mean Corpuscular Hemoglobin 33.9 pg (27.0-33.0); Mean Corpuscular Volume 99.1 fL (80.0-98.0); Mean Platelet Volume 9.9 fL (9.4-12.4); Red Blood Count 2.27 X10*6/uL (4.60-5.80); Red Cell Distribution Width 17.2 % (11.0-16.0); White Blood Count 6.4 X10*3/uL (4.8-10.8)
[2022-04-30 07:15] LABS: Platelet Count 61 X10*3/uL (160-400)
[2022-04-30 07:22] LABS: Anion Gap 12 (12-20); Blood Urea Nitrogen 18 mg/dL (9-16); Calcium 8.1 mg/dL (8.4-10.2); Carbon Dioxide 20 mmol/L (22-29); Chloride 105 mmol/L (96-108); Creatinine Clr Calc Pharmacy 97.5; Estimated Glomerular Filt Rate > 60; Glucose Random 168 mg/dL (60-115); Magnesium 2.1 mg/dL (1.6-2.6); Potassium 4.5 mmol/L (3.3-5.1); Sodium 132 mmol/L (135-145)
[2022-04-30 07:42] LABS: Glucose, Whole Blood 176 mg/dL (60-115)
[2022-04-30 08:00] VITALS: BP 101/61; PULSE 101; RESP 16; TEMP 36; O2SAT 99
[2022-04-30] MEDS: Omeprazole 20 MG CAPSULE.DR PO (08:20)
[2022-04-30] MEDS: Sodium Chloride Tab 1 GM TABLET PO (08:21)
[2022-04-30] MEDS: Folic Acid 1 MG TABLET PO (08:21)
[2022-04-30] MEDS: PHENobarbitaL 15 MG TABLET PO (08:21)
[2022-04-30] MEDS: Thiamine HCL 100 MG TABLET PO (08:22)
[2022-04-30] MEDS: rifAXIMin 550 MG TABLET PO (08:22)
[2022-04-30] MEDS: Magnesium Oxide 400 MG TABLET 800 MG PO (08:22)
[2022-04-30] MEDS: Lidocaine 4 % Patch ADH..PATCH 1 PATCH TRANSDERMA (08:23)
[2022-04-30] MEDS: Furosemide 20 MG TABLET PO (08:24)
[2022-04-30] MEDS: Lactulose 20 GM/30 ML SOLUTION 30 GM PO ×2 (08:24→15:27)
[2022-04-30] MEDS: Insulin Lispro 100 UNIT/ML 3 ML VIAL SUBCUT ×2 (08:24→12:10)
[2022-04-30] MEDS: Spironolactone 25 MG TABLET PO (08:38)
[2022-04-30] MEDS: Spironolactone 25 MG TABLET 12.5 MG PO (08:39)
[2022-04-30 11:33] LABS: Glucose, Whole Blood 249 mg/dL (60-115)
--- NOTE | 2022-04-30 11:41 | P.DS_ITS ---
DS: Providers Provider Date of Service: 04/30/22 Date of admission: 04/23/22 20:41 Date of discharge: 04/30/22 Primary care physician: Maren Carvajal MD Consults: 04/24/22 09:16 Consult to Infectious Diseases Routine Consulting Provider: Anuradha Son Reason for consultation: gram + and gram - bacteremia 04/26/22 10:14 Consult to Gastroenterology Routine Consulting Provider: Tho Carnes Reason for consultation: Decompensated cirrhosis with ascites DS: Diagnosis Discharge Diagnosis (1) Ascites: Status: Acute (2) End stage liver disease: Status: Acute (3) Hypomagnesemia: Status: Acute (4) Alcoholic cirrhosis: Status: Acute (5) Gram-negative bacteremia: Status: Acute (6) Hepatic encephalopathy: Status: Acute DS: Summary Hospital Course Hospital Course: Pt is a 56-year-old male with a PMH significant for?ETOH cirrhosis, ascites, alcohol use disorder, and [id number] DM who presents to the ED after feeling off and not feeling well. Pt alert and oriented x2 (states it is Janurary 2021), but agitated and not cooperative during interview. Pt will not elaborate on how he feels off or unwell. Complains of feeling cold, but denies fever, nausea, vomiting. No abdominal pain or changes in bowel habits. Denies chest pain/pressure, palpitations. No SOB.? In the ED patient was afebrile but tachycardic, tachypneic and hypertensive. Labs were significant for stable H&H of 9.1/25.3 (at baseline), platelets of 104 (at baseline), hyponatremia of 132 (at baseline), hypomagnesmia of 1.3, chronically elevated lactic acid 4.1 (near baseline), hyperbilirubinemia of 3.3 (at baseline), and elevated ammonia of 117.? Peritoneal sample negative for WBCs and RBCs, other results pending. CXR showed no acute cardiopulmonary process. CT?of abdomen and pelvis found cirrhotic liver with portal hypertension and large volume of ascites, nonobstructive left-sided renal calculus, and no evidence of bowel obstruction but suggestive of constipation. Pt was treated with IVF, albumin, magnesium, and Zosyn. Pt will be admitted to the hospital for treatment of symptomatic ascites and hepatic encephalopathy. Hospital Course Patient was admitted to hospital restarted on his lactulose. On 04/24 patient underwent large volume paracentesis and 7.7 L of fluid was removed peritoneal fluid cultures essentially unremarkable. He was maintained on Lasix/Aldactone increased to 37.5 and rhythmic seen continued. He had persistent hyponatremia but this is essentially his baseline. He was fluid restricted and continues to improve albeit slowly. During this hospitalization he did exhibit signs of alcohol withdrawal which responded to phenobarb protocol. Blood cultures eventually grew out Enterococcus faecalis and coag-negative staph . Seen by ID who felt coag-negative staph was contaminant and Enterococcus was susceptible to Levaquin. At this point in time he is medically acceptable to be discharged on a 14 day course of oral Levaquin 750 mg followed by 750 mg of Levaquin Wednesday as prophylaxis. He can follow-up with his PCP and is encouraged strongly to quit drinking Time Spent with Patient Time attestation: Total time managing care of this patient today ____ minutes. Discharge coordination time: Greater than 30 minutes Quality: Safe Use of Opioids Does Pt have an Active Cancer Diagnosis on the Problem List?: No Quality: Stroke Does the patient have a stroke diagnosis?: No Physical Exam Vital Signs: Vital Signs: Last Vital Signs Temp 96.8 F 04/30/22 08:00 Pulse 101 H 04/30/22 08:00 Resp 16 04/30/22 08:00 BP 101/61 04/30/22 08:00 Pulse Ox 99 04/30/22 08:00 O2 Del Method 04/30/22 08:00 BMI result Body Mass Index 29.2 Const: Other: Awake alert Resp: Other: Clear to auscultation bilaterally no rales rhonchi wheezes Cardio: Other: No S4; positive S1-S2; no S3 murmurs rubs or gallops GI: Other: Soft nontender nondistended normoactive bowel sounds Extrem: Other: No edema bilaterally DS: Data Data Completed and Pending Completed studies during hospitalization [Text1]: Procedures Detoxification Services for Substance Abuse Treatment (08/01/21) Drainage of Peritoneal Cavity, Percutaneous Approach (04/03/22) Labs on day of discharge: Laboratory Results - last 24 hr 04/29/22 04/29/22 04/29/22 09:45 12:22 16:18 WBC RBC Hgb Hct MCV MCH MCHC RDW Plt Count MPV Absolute Nucleated RBC Nucleated RBC % (auto) Sodium Potassium Chloride Carbon Dioxide Anion Gap BUN Creatinine Estim Creat Clear Calc Estimated GFR POC Glucose 186 H 272 H Random Glucose Calcium Magnesium Stool Occult Blood NEGATIVE 04/29/22 04/30/22 04/30/22 20:26 05:35 05:35 WBC 6.4 RBC 2.27 L Hgb 7.7 L Hct 22.5 L MCV 99.1 H MCH 33.9 H MCHC 34.2 RDW 17.2 H Plt Count 61 L MPV 9.9 Absolute Nucleated RBC 0.000 Nucleated RBC % (auto) 0.0 Sodium 132 L Potassium 4.5 Chloride 105 Carbon Dioxide 20 L Anion Gap 12 BUN 18 H Creatinine 0.86 Estim Creat Clear Calc 97.5 Estimated GFR > 60 POC Glucose 138 H Random Glucose 168 H Calcium 8.1 L Magnesium 2.1 Stool Occult Blood 04/30/22 04/30/22 07:16 11:23 WBC RBC Hgb Hct MCV MCH MCHC RDW Plt Count MPV Absolute Nucleated RBC Nucleated RBC % (auto) Sodium Potassium Chloride Carbon Dioxide Anion Gap BUN Creatinine Estim Creat Clear Calc Estimated GFR POC Glucose 176 H 249 H Random Glucose Calcium Magnesium Stool Occult Blood Preliminary micro results at discharge 04/27/22 14:39 Blood Culture - Preliminary Blood - Venous No growth after 48 hours. 04/27/22 14:39 Blood Culture - Preliminary Blood - Venous No growth after 48 hours. Discharge Plan Discharge Anticipated Discharge Date/Time: 04/30/22 11:29 Patient Disposition: Home Health Service Discharge Diagnosis: Liver cirrhosis with ascites Referrals: Maren Carvajal MD [Primary Care Provider] - 1 Week Discharge Medications: New spironolactone 25 mg Tablet 12.5 mg PO DAILY Qty: 30 0RF Protocol: Hold for SBP< HOLD for SBP < : 90 levofloxacin 750 mg Tablet 750 mg PO Q24H Qty: 14 0RF spironolactone [Aldactone] 25 mg tablet 37.5 mg PO DAILY Qty: 45 2RF Continued folic acid 1 mg tablet 1 mg PO DAILY Qty: 90 2RF metformin 1,000 mg tablet 1,000 mg PO BID Qty: 60 2RF thiamine HCl (vitamin B1) 100 mg tablet 100 mg PO DAILY Qty: 90 2RF insulin lispro 100 unit/mL Insulin Pen 0 sliding scale dose SUBCUT TIDAC Protocol: Insulin Correction Scale Less than or equal to 110 ---- Give (units): 0 111 to 150 Give (units): 0 151 to 200 Give (units): 2 201 to 250 Give (units): 4 251 to 300 Give (units): 6 301 to 350 Give (units): 8 Greater than 350 Give (units): 10 Call MD if Blood Glucose > : 350 magnesium oxide 400 mg magnesium Tablet 400 mg PO BID Xifaxan 550 mg Tablet 550 mg PO BID Qty: 60 0RF spironolactone 25 mg Tablet 25 mg PO DAILY Qty: 30 0RF Protocol: Hold for SBP< HOLD for SBP < : 90 furosemide 20 mg Tablet 20 mg PO DAILY Qty: 30 0RF Protocol: Hold for SBP< HOLD for SBP < : 90 omeprazole 20 mg capsule,delayed release(DR/EC) 1 cap PO DAILY lactulose 10 gram/15 mL solution 30 ml PO BID sodium chloride 1,000 mg tablet,soluble 1,000 mg PO DAILY Qty: 30 0RF Discharge Orders: Discharge Order (Routine); Ordered 04/30/22 Ordered By: Yosef Falcon Diet: Advance to usual diet Activity on Discharge: As tolerated Stand Alone Forms: Patient Portal Discharge page Care Plan Goals: Complete course of Levaquin 750 mg daily for 14 days. Then start Levaquin 750 mg every Wednesday and Wednesday Health Concerns: Continue all other pre-hospital medications Plan of Treatment: Abstain from alcohol. Follow-up with your PCP in 2 weeks Assessment: See discharge summary
[2022-04-30] MEDS: levoFLOXacin 750 MG TABLET PO (12:10)
--- NOTE | 2022-04-30 12:11 | MHC.CM.PN ---
PT MEDICALLY CLEARED TO D/C HOME W/RESUMP OF [facility] W/[facility] FOR BLS TRANSPORT CM SPOKE W/PT'S CAREGIVER/S.O. AKBAR X2 TODAY W/PT GIVING VERBAL CONSENT AND AKBAR IS AWARE THAT PT WILL BE RETURNING HOME TODAY AT 3:30-4PM AND [place] WILL HAVE TO FORMALLY EVICT PT THROUGH COURT SYSTEM FOR PT NOT TO BE ABLE TO RETURN HOME.
== END 2022-04-30 16:15 | disposition home health service (06) | DRG 433 ==
LOC: HO.ED 18:03 → HO.EDOVER 20:50 → HO.S3 04-24 15:21
PROVIDERS: Family Medicine; Physician Assistant; Radiology Diagnostic Radiology; Student in an Organized Health Care Education/Training Program; Admitting Provider Student in an Organized Health Care Education/Training Program; Emergency Provider Emergency Medicine; PCP Internal Medicine; Visit Provider Hospitalist
PROC: 0W9G3ZZ Drainage of Peritoneal Cavity, Percutaneous Approach (ICD-10-PCS; principal; 2022-04-24 11:30)
DX: K70.31 Alcoholic cirrhosis of liver with ascites (principal); E87.1 Hypo-osmolality and hyponatremia; E87.20 Acidosis, unspecified; K76.6 Portal hypertension; R78.81 Bacteremia; F10.139 Alcohol abuse with withdrawal, unspecified; I47.1 Supraventricular tachycardia; K76.82 Hepatic encephalopathy; E11.9 Type 2 diabetes mellitus without complications; M54.50 Low back pain, unspecified; Z91.14 Patient's other noncompliance with medication regimen; G89.29 Other chronic pain; D69.6 Thrombocytopenia, unspecified; E83.42 Hypomagnesemia; Z20.822 Contact with and (suspected) exposure to COVID-19; Z88.5 Allergy status to narcotic agent; Z88.6 Allergy status to analgesic agent; Z88.8 Allergy status to other drugs, medicaments and biological substances; Z79.4 Long term (current) use of insulin; Z79.84 Long term (current) use of oral hypoglycemic drugs; Z79.899 Other long term (current) drug therapy
CPT/HCPCS: 36415; 49083; 71045; 74177; 80048; 80053; 80076; 80202; 82042; 82077; 82140; 82150; 82272; 82607; 82746; 82945; 82947; 83605; 83615; 83690; 83735; 83880; 84157; 85025; 85027; 85610; 85730; 86850; 86900; 86901; 86923; 87040; 87070; 87073; 87077; 87147; 87186; 87205; 87635; 89051; 93005; 93306; 99285; J0696; J1170; J1650; J2543; J2560; J3370; J3411; J3475; P9016; P9047; Q9957; Q9967

== ENCOUNTER 2022-05-03 17:14 | Emergency (ER) | payer MEDICAID, SELFPAY ==
--- NOTE | ~2022-05-03 | CT_ITS ---
EXAMINATION: CT CHEST, ABDOMEN AND PELVIS WITHOUT CONTRAST CLINICAL INFORMATION: Question of pneumonia, diverticulitis, ascites or colitis COMPARISON: CT abdomen pelvis 04/23/2022, chest radiograph 04/25/2022, CT chest 02/09/2022 TECHNIQUE: Multidetector volumetric imaging was performed from the thoracic inlet through the pubic symphysis without IV contrast. Sagittal and coronal reformatted images were obtained on the technologist's workstation. This CT examination was performed using dose optimization techniques as appropriate, variously including the following: *Automated exposure control *Adjustment of mA and/or kV according to patient size (this includes techniques or standardized protocols for targeted exams where dose is matched to indication/reason for exam; i.e. extremities or head) *Use of iterative reconstruction technique DLP: 1041 mGy-cm FINDINGS: CHEST: Lung and Pleura: Right basilar atelectasis is present. Some tree-in-bud opacities are noted in the left upper lobe (6:217). No focal consolidation or pneumonia is seen. No suspicious lung mass is present. No pneumothorax. No significant pleural effusion. Mediastinum: Heart size is normal. Extensive coronary calcification is seen. Small focal fluid collections seen anterior to the left heart which may be related to the ascites measuring 4.0 x 2.8 cm, not significantly changed when compared to 02/09/2022. Chest Wall/Axilla: Bilateral gynecomastia. No axillary adenopathy. ABDOMEN/PELVIS: Peritoneal Space: Large volume ascites is again noted. Liver, Gallbladder, Biliary Tree: Again noted is a small shrunken and cirrhotic appearing liver with nodular border and hypertrophy of the left lobe. No focal liver mass or bile duct dilatation is seen. Cholelithiasis without acute cholecystitis. Pancreas: Unremarkable Spleen: Splenomegaly at 13.6 cm. Adrenal Glands: Unremarkable Kidneys and Ureters: The kidneys are normal in size, shape, and attenuation. Small punctate nonobstructing bilateral renal calculi are seen. No hydronephrosis, hydroureter, or ureteral calculi seen. No perinephric stranding. Bladder: Unremarkable Gastrointestinal Tract: Small hiatal hernia is present. The small and large bowel are unremarkable. The appendix is not seen identified but there is no evidence of appendicitis. Abdominal Wall: Multiple periumbilical hernia seen containing ascitic fluid. Lymph Nodes: No lymphadenopathy. Vascular: Again seen are perigastric and periesophageal varices which are not not opacified as they were on the prior contrast-enhanced CT scan. The aorta appears normal.. The IVC appears unremarkable. PELVIC VISCERA: The prostate and seminal vesicles are unremarkable. Calcifications are present in the tunica albuginea. OSSEUS STRUCTURES: Moderate degenerative changes throughout the spine. Grade 1 anterolisthesis of L5 upon S1 with bilateral pars defects at L5. CT/CT abdomen pelvis wo IV con IMPRESSION: 1. No evidence of pneumonia, diverticulitis or colitis 2. Cirrhotic liver with large volume ascites, splenomegaly and varices, unchanged from prior. 3. Cholelithiasis without cholecystitis. 4. Small punctate nonobstructing renal calculi. 5. Other incidental findings as described above including tree-in-bud opacities in the left upper lobe, small unchanged fluid collection anterior to the left heart, and degenerative changes in the spine with anterolisthesis of L5 upon S1. Fleischner guidelines were followed.
--- NOTE | ~2022-05-03 | CT_ITS ---
EXAMINATION: CT HEAD WITHOUT CONTRAST CLINICAL INFORMATION: Headache COMPARISON: Head CT 04/03/2022 TECHNIQUE: Imaging was performed from the skull base to vertex without intravenous administration of contrast. This CT examination was performed using dose optimization techniques as appropriate, variously including the following: *Automated exposure control *Adjustment of mA and/or kV according to patient size (this includes techniques or standardized protocols for targeted exams where dose is matched to indication/reason for exam; i.e. extremities or head) *Use of iterative reconstruction technique Total exam dose length product: 680 mGy-cm FINDINGS: No intra or extra-axial fluid collection, hemorrhage, or mass. No ventriculomegaly. No midline shift or herniation. Basal cisterns are patent. Hicks-white matter differentiation is maintained. No territorial encephalomalacia. Proportional prominence of the ventricles and sulcal spaces is consistent with mild to moderate volume loss, appearing slightly advanced for patient age. Mild cerebellar folia prominent/cerebellar atrophy. Similar mild periventricular white matter hypoattenuation bilaterally, nonspecific. No calvarial fracture or soft tissue abnormality. Mild deformity of the right lamina papyracea/medial orbital wall consistent with remote prior orbital blowout fracture. The mastoid air cells and visualized portions of the paranasal sinuses are well aerated. CT/CT head/brain wo IV con IMPRESSION: 1. No acute intracranial pathology. 2. Unchanged cerebral atrophy.
[2022-05-03 17:22] VITALS: BP 100/60; BP 89/51; PULSE 103; PULSE 96; RESP 20; TEMP 37; O2SAT 100; O2SAT 98; BMI 29.7
--- NOTE | 2022-05-03 17:28 | PC.NURSE ---
Late entry: This RN notified Dr. Santillan of low BP (requested that this RN take another BP)
[2022-05-03 17:49] VITALS: BP 99/62; PULSE 98; RESP 14; TEMP 37; O2SAT 100
[2022-05-03 18:19] VITALS: BP 94/63; PULSE 99; RESP 14; O2SAT 99
--- NOTE | 2022-05-03 18:21 | ECG_ITS ---
Test Reason : weakness Blood Pressure : / mmHG Vent. Rate : 097 BPM Atrial Rate : 097 BPM P-R Int : 154 ms QRS Dur : 078 ms QT Int : 358 ms P-R-T Axes : -03 035 024 degrees QTc Int : 454 ms Normal sinus rhythm Low voltage QRS Borderline ECG When compared with ECG of 24-APR-2022 15:01, No significant change was found Referred By: David Miller Electronically Signed By:Ian Saenz
[2022-05-03 19:07] LABS: MANUAL DIFF FLAG NO
[2022-05-03 19:08] LABS: Basophils Absolute Auto 0.1 X10*3/uL (0.0-0.2); Basophils Percent Auto 0.9 % (0-2); Eosinophils Absolute Auto 0.2 X10*3/uL (0.0-0.4); Eosinophils Percent Auto 2.4 % (0-4); Hematocrit 27.2 % (42.0-52.0); Hemoglobin 9.4 g/dl (14.0-18.0); Imm Gran Abs Auto 0.05 X10*3/uL (0.00-0.03); Imm Gran Pct Auto 0.5 % (0.0-0.4); Lymphocytes Percent Auto 10.9 % (20-40); Mean Corpuscular HGB Conc 34.6 g/dl (31.0-36.0); Mean Corpuscular Hemoglobin 34.7 pg (27.0-33.0); Mean Corpuscular Volume 100.4 fL (80.0-98.0); Monocytes Absolute Auto 0.8 X10*3/uL (0.1-1.2); Monocytes Percent Auto 8.7 % (2-11); Neutrophils Absolute Auto 7.1 x10*3/uL (2.0-8.3); Neutrophils Percent Auto 76.6 % (45-73); Red Blood Count 2.71 X10*6/uL (4.60-5.80); Red Cell Distribution Width 17.7 % (11.0-16.0); White Blood Count 9.3 X10*3/uL (4.8-10.8)
[2022-05-03 19:13] LABS: Platelet Count 98 X10*3/uL (160-400)
[2022-05-03 19:15] LABS: INTERNATIONAL NORM RATIO 1.7 (0.9-1.1); Prothrombin Time 19.8 SEC (10.0-13.1)
[2022-05-03 19:18] LABS: Partial Thromboplastin Time 37.9 SEC (26.0-36.4)
[2022-05-03 19:22] LABS: Alanine Aminotransferase 36 U/L (0-40); Albumin Level 2.8 g/dL (3.5-5.0); Alkaline Phosphatase 273 U/L (39-117); Anion Gap 16 (12-20); Aspartate Amino Transferase 55 U/L (5-37); Bilirubin Total 2.5 mg/dL (0.0-1.0); Blood Urea Nitrogen 22 mg/dL (9-16); Carbon Dioxide 16 mmol/L (22-29); Chloride 104 mmol/L (96-108); Creatinine Clr Calc Pharmacy 74.9; Estimated Glomerular Filt Rate > 60; Glucose Random 108 mg/dL (60-115); Potassium 5.1 mmol/L (3.3-5.1); Sodium 131 mmol/L (135-145); Total Protein 5.9 g/dL (6.5-8.0)
[2022-05-03 19:29] LABS: Troponin-I High Sensitivity < 3.5 ng/L (<3.5-35.0)
[2022-05-03 19:33] LABS: Lactic Acid 3.5 mmol/L (0.5-2.0)
--- NOTE | 2022-05-03 19:36 | PC.NURSE ---
call from lab w/ critical results lactic acid 3.5; notified provider LESLEE Guy and LIGIA Mcdermott
--- NOTE | 2022-05-03 19:40 | ED_ITS ---
HPI - General Adult General Chief complaint: Weakness Stated complaint: WEAK X'S 2 DAYS PER EMS Time Seen by Provider: 05/03/22 18:00 Source: patient Mode of arrival: ambulatory Limitations: no limitations History of Present Illness HPI narrative: 56-year-old male with history of cirrhosis, end-stage liver disease, presents to ED for generalized weakness and headache. Patient states mild abdominal discomfort but no nuasea or vomitting. . Patient denies any chest pain, coughing, fever, chills. Patient bedbound. patient denies any pain in extremities Related Data Home Medications Medication Instructions Recorded Confirmed lactulose 10 gram/15 mL oral 30 ml PO BID 03/17/22 04/23/22 solution omeprazole 20 mg capsule,delayed 1 cap PO DAILY 03/17/22 04/23/22 release insulin lispro 100 unit/mL 0 sliding scale dose subcut TIDAC 04/03/22 04/23/22 subcutaneous pen magnesium oxide 400 mg PO BID 04/03/22 04/23/22 Previous Rx's Medication Instructions Recorded folic acid 1 mg tablet 1 mg PO DAILY #90 tabs 03/05/22 metformin 1,000 mg tablet 1,000 mg PO BID #60 tabs 03/05/22 thiamine HCl (vitamin B1) 100 mg 100 mg PO DAILY #90 tabs 03/05/22 tablet sodium chloride 1,000 mg soluble 1,000 mg PO DAILY #30 tabs 03/22/22 tablet furosemide 20 mg tablet 20 mg PO DAILY #30 tabs 04/08/22 rifaximin 550 mg tablet (Xifaxan) 550 mg PO BID #60 tabs 04/08/22 spironolactone 25 mg tablet 25 mg PO DAILY #30 tabs 04/08/22 levofloxacin 750 mg tablet 750 mg PO Q24H #14 tabs 04/30/22 spironolactone 25 mg tablet 12.5 mg PO DAILY #30 tabs 04/30/22 spironolactone 25 mg tablet 37.5 mg PO DAILY #45 tabs 04/30/22 (Aldactone) Allergies Allergy/AdvReac Type Severity Reaction Status Date / Time acetaminophen [From PERCOCET] Allergy Severe AGITATION Verified 04/13/22 18:14 oxycodone [From PERCOCET] Allergy Severe AGITATION Verified 04/13/22 18:14 bee pollen [Bee Stings] Allergy Mild SWELLING Verified 04/13/22 18:14 lorazepam AdvReac Unknown AGITATION Verified 04/13/22 18:14 Review of Systems Review of Systems: Headache, generalized weakness. minimal PMFSH Past Medical History Medical History SAUL (acute kidney injury) SAUL (acute kidney injury) Alcohol abuse Alcoholic cirrhosis Ascites Diabetes Elevated liver enzymes Hypertension Hyponatremia Liver cirrhosis Pressure ulcer Withdrawal seizures Surgical History No pertinent past surgical history Family History Family History Other No family history of coronary artery disease Social History Social History Household Members: Significant Other Housing: House Do you presently have visiting nurse or other home services: Yes Unable to assess alcohol history related to: Refusing to respond Alcohol intake: current Alcohol intake frequency: a few times a month Alcohol type: beer and hard liquor Patient Tobacco Use Status: Never used Tobacco Tobacco use type: Smokeless Tobacco Smoked in Last 30 Days: No Second Hand Smoke Exposure: No Use of substances other than those prescribed or required for medical reasons: No Advance Directives: Yes Advance Directives on File: Yes Advance Directives Date on File: 03/18/22 service: Yes Current occupational status: unemployed Physical Exam ED Vital Signs: Vital Signs - 24 hr 05/03/22 17:22 05/03/22 17:49 05/03/22 18:19 Temperature 98.6 F 98.6 F Pulse Rate 96 98 99 Respiratory Rate 20 14 14 Blood Pressure 89/51 L 99/62 94/63 Pulse Oximetry 100 100 99 Oxygen Delivery Method Room Air Room Air Room Air 05/03/22 20:09 05/03/22 21:04 05/03/22 21:34 Temperature 97.7 F Pulse Rate 107 H 101 H 100 Respiratory Rate 15 12 17 Blood Pressure 90/48 L 95/55 L 116/65 Pulse Oximetry 99 100 100 Oxygen Delivery Method Room Air Room Air Room Air BMI result Body Mass Index 29.7 Const General: cooperative, healthy appearing, comfortable, no acute distress, well developed, alert, awake and Physically active Orientation/consciousness: oriented to person, oriented to place, oriented to time and patient oriented x3 [facility] Head: Yes normal to inspection, Yes No palpable skull fracture present, Yes normocephalic, Yes atraumatic and No abrasion Eyes General: appearance normal, both eyes and all related structures Neck Neck: Yes normal visual inspection, Yes full ROM, Yes no lymphadenopathy, Yes no meningeal signs, Yes trachea midline, Yes supple, No anterior neck swelling and No tender Chest Chest palpation & inspection: normal inspection of the chest and normal palpation of entire chest wall Resp Effort & Inspection: normal respiratory effort and able to speak in complete sentences Auscultation: clear to auscultation bilaterally Cardio Jugular venous distension: no JVD Heart sounds: S1 normal heart sound present and S2 normal heart sound present GI Other: chronic ascites Inspection: Yes normal to inspection, No abdominal wall ecchymosis and Yes distended Palpation (GI): Soft to palpation, not firm, nontender, no guarding and not rigid General: No CVA tenderness and Yes no CVA tenderness Back/Spine/Pelvis Back: no CVA tenderness, No CVA tenderness and No back tenderness Skin General skin exam: no rashes or lesions noted and elasticity normal Neuro Other: negative facial droop. Negative slurred speech. All extremities equal strength 5+. Negative pronator drift. Patient bedbound. Patient denies loss of vision. General: oriented to person, oriented to place, oriented to time, patient oriented x3, tone normal, moves all extremities, Normal light touch and pain sensation and no meningeal signs Extrem General: Yes normal to inspection and Yes full ROM Psych Appearance: grossly normal, well kempt and not disheveled Course Course Course Narrative: patient nontoxic appearing. Will do a head CT patient stating headache for couple of days was sent for chest CT demonstrates no pneumonia was sent for CAT scan machine is no diverticulitis so there is no abdominal tenderness whatsoever. Reevaluation(s) Reevaluation #1: Critical lab o was called at 19:30pm for lactic. Sepsis called. 2 liters of fluid ordered Time: 19:45 Reevaluation #2: I went back to the room and patient denies having any abdominal pain. Abdomen is soft and benign and nontender on palpation. Negative any guarding. Negative for any rigidity. Negative for signs of peritonitis. Chest CT negative pneumonia head CT normal. First troponin negative. Hypotensive. Albumin ordered. Will discussed with Dr. Santillan if diagnostic paracentesis is needed Reevaluation #3: patient blood pressure better with albumin. Bedside ultrasound shows pocket of fluid ascites for paracentesis. I informed patient I will do the procedure has agreed [address] Santillan does a large enough area of ascites to make sure threre is no SBP due to elevated lactic.. Patient refused procedure. Patient does not having abdominal pain presently but due to elevated lactic acidosis procedure may be necessary although elevated lactic acidosis is chronic. shmuel ent agreed to sign out against medical advice knowing the risk of Due to possible SBP, lactic acidosis, sepsis and hypotension. Patient also refused to give uA. Patient signed out AMA. patient is A0x3 Dr. Santillan made aware. Time: 21:58 Medications Administered Discontinued Medications Generic Name Dose Route Start Last Admin Trade Name Freq PRN Reason Stop Dose Admin Sodium Chloride 1,000 mls @ 999 mls/hr 05/03/22 19:43 05/03/22 20:59 Ns IV 05/03/22 20:43 Infused .Q1H1M STA Infusion Sodium Chloride 1,000 mls @ 999 mls/hr 05/03/22 19:44 05/03/22 20:59 Ns IV 05/03/22 20:44 Infused .Q1H1M STA Infusion Ceftriaxone Sodium 2 gm/ 50 mls @ 100 mls/hr 05/03/22 19:51 05/03/22 20:31 Sodium Chloride IV 05/03/22 20:20 Infused ONCE ONE Infusion Albumin Human 100 mls @ 100 mls/hr 05/03/22 20:48 05/03/22 22:11 Kedbumin 25 % IV 05/03/22 21:47 Infused Q1H STA Infusion Medical Decision Making Medical Decision Making [facility] Narrative: 56-year-old male presents to ED for fatigue, and weakness known history of cirrhosis liver failure chronic lactic acidosis elevation. Patient signed out against medical advice and did not want any further evaluation Differential Diagnosis Differential Diagnoses: The differential diagnosis associated with the presentation includes ( SBP, sepsis, hyportension,) Admission/Observation Consideration of admission/observation: Escalation of care including admission/observation considered admission was considered Lab Data [facility] Lab Attestation statement: I reviewed the patient's lab results. 05/03/22 18:59 05/03/22 18:59 Labs: Lab Results 02/03/1305/03/22 05/03/22 Range/Units 18:59 18:59 18:59 WBC 9.3 (4.8-10.8) X10*3/uL RBC 2.71 L (4.60-5.80) X10*6/uL Hgb 9.4 L D (14.0-18.0) g/dl Hct 27.2 L D (42.0-52.0) % MCV 100.4 H (80.0-98.0) fL MCH 34.7 H (27.0-33.0) pg MCHC 34.6 (31.0-36.0) g/dl RDW 17.7 H (11.0-16.0) % Plt Count 98 L D (160-400) X10*3/uL MPV 10.0 (9.4-12.4) fL Immature Gran % (Auto) 0.5 H (0.0-0.4) % Neut % (Auto) 76.6 H (45-73) % Lymph % (Auto) 10.9 L (20-40) % [place] % (Auto) 8.7 (2-11) % Eos % (Auto) 2.4 (0-4) % Baso % (Auto) 0.9 (0-2) % Lymph # (Auto) 1.0 L (1.2-4.9) X10*3/uL [place] # (Auto) 0.8 (0.1-1.2) X10*3/uL Eos # (Auto) 0.2 (0.0-0.4) X10*3/uL Baso # (Auto) 0.1 (0.0-0.2) X10*3/uL Abs Immat Gran (auto) 0.05 H (0.00-0.03) X10*3/uL Absolute Neuts (auto) 7.1 (2.0-8.3) x10*3/uL Absolute Nucleated RBC 0.000 (0.0-0.012) X10*3/uL Nucleated RBC % (auto) 0.0 (0.0-0.2) /100WBC PT 19.8 H (10.0-13.1) SEC INR 1.7 H (0.9-1.1) APTT 37.9 H (26.0-36.4) SEC Sodium 131 L (135-145) mmol/L Potassium 5.1 (3.3-5.1) mmol/L Chloride 104 (96-108) mmol/L Carbon Dioxide 16 L (22-29) mmol/L Anion Gap 16 (12-20) BUN 22 H (9-16) mg/dL Creatinine 1.13 (0.5-1.4) mg/dL Estim Creat Clear Calc 74.9 Estimated GFR > 60 Random Glucose 108 (60-115) mg/dL Lactic Acid (0.5-2.0) mmol/L Lactic Acid F/U @ 2Hr (0.5-2.0) mmol/L Calcium 9.0 D (8.4-10.2) mg/dL Total Bilirubin 2.5 H (0.0-1.0) mg/dL AST 55 H (5-37) U/L ALT 36 (0-40) U/L Alkaline Phosphatase 273 H (39-117) U/L Troponin I High Sens (<3.5-35.0) ng/L Total Protein 5.9 L (6.5-8.0) g/dL Albumin 2.8 L (3.5-5.0) g/dL Influenza Type A (PCR) (Negative) Influenza Type B (PCR) (Negative) RSV RNA Qual (PCR) (Negative) SARS-CoV-2 RNA (RT-PCR) (Negative) 05/03/22 05/03/22 05/03/22 Range/Units 18:59 18:59 18:59 WBC (4.8-10.8) X10*3/uL RBC (4.60-5.80) X10*6/uL Hgb (14.0-18.0) g/dl Hct (42.0-52.0) % MCV (80.0-98.0) fL MCH (27.0-33.0) pg MCHC (31.0-36.0) g/dl RDW (11.0-16.0) % Plt Count (160-400) X10*3/uL MPV (9.4-12.4) fL Immature Gran % (Auto) (0.0-0.4) % Neut % (Auto) (45-73) % Lymph % (Auto) (20-40) % [place] % (Auto) (2-11) % Eos % (Auto) (0-4) % Baso % (Auto) (0-2) % Lymph # (Auto) (1.2-4.9) X10*3/uL [place] # (Auto) (0.1-1.2) X10*3/uL Eos # (Auto) (0.0-0.4) X10*3/uL Baso # (Auto) (0.0-0.2) X10*3/uL Abs Immat Gran (auto) (0.00-0.03) X10*3/uL Absolute Neuts (auto) (2.0-8.3) x10*3/uL Absolute Nucleated RBC (0.0-0.012) X10*3/uL Nucleated RBC % (auto) (0.0-0.2) /100WBC PT (10.0-13.1) SEC INR (0.9-1.1) APTT (26.0-36.4) SEC Sodium (135-145) mmol/L Potassium (3.3-5.1) mmol/L Chloride (96-108) mmol/L Carbon Dioxide (22-29) mmol/L Anion Gap (12-20) BUN (9-16) mg/dL Creatinine (0.5-1.4) mg/dL Estim Creat Clear Calc Estimated GFR Random Glucose (60-115) mg/dL Lactic Acid 3.5 H* (0.5-2.0) mmol/L Lactic Acid F/U @ 2Hr (0.5-2.0) mmol/L Calcium (8.4-10.2) mg/dL Total Bilirubin (0.0-1.0) mg/dL AST (5-37) U/L ALT (0-40) U/L Alkaline Phosphatase (39-117) U/L Troponin I High Sens < 3.5 (<3.5-35.0) ng/L Total Protein (6.5-8.0) g/dL Albumin (3.5-5.0) g/dL Influenza Type A (PCR) NEGATIVE (Negative) Influenza Type B (PCR) NEGATIVE (Negative) RSV RNA Qual (PCR) NEGATIVE (Negative) SARS-CoV-2 RNA (RT-PCR) NEGATIVE (Negative) 05/03/22 05/03/22 Range/Units 21:08 21:10 WBC (4.8-10.8) X10*3/uL RBC (4.60-5.80) X10*6/uL Hgb (14.0-18.0) g/dl Hct (42.0-52.0) % MCV (80.0-98.0) fL MCH (27.0-33.0) pg MCHC (31.0-36.0) g/dl RDW (11.0-16.0) % Plt Count (160-400) X10*3/uL MPV (9.4-12.4) fL Immature Gran % (Auto) (0.0-0.4) % Neut % (Auto) (45-73) % Lymph % (Auto) (20-40) % [place] % (Auto) (2-11) % Eos % (Auto) (0-4) % Baso % (Auto) (0-2) % Lymph # (Auto) (1.2-4.9) X10*3/uL [place] # (Auto) (0.1-1.2) X10*3/uL Eos # (Auto) (0.0-0.4) X10*3/uL Baso # (Auto) (0.0-0.2) X10*3/uL Abs Immat Gran (auto) (0.00-0.03) X10*3/uL Absolute Neuts (auto) (2.0-8.3) x10*3/uL Absolute Nucleated RBC (0.0-0.012) X10*3/uL Nucleated RBC % (auto) (0.0-0.2) /100WBC PT (10.0-13.1) SEC INR (0.9-1.1) APTT (26.0-36.4) SEC Sodium (135-145) mmol/L Potassium (3.3-5.1) mmol/L Chloride (96-108) mmol/L Carbon Dioxide (22-29) mmol/L Anion Gap (12-20) BUN (9-16) mg/dL Creatinine (0.5-1.4) mg/dL Estim Creat Clear Calc Estimated GFR Random Glucose (60-115) mg/dL Lactic Acid (0.5-2.0) mmol/L Lactic Acid F/U @ 2Hr 4.2 H* (0.5-2.0) mmol/L Calcium (8.4-10.2) mg/dL Total Bilirubin (0.0-1.0) mg/dL AST (5-37) U/L ALT (0-40) U/L Alkaline Phosphatase (39-117) U/L Troponin I High Sens < 3.5 (<3.5-35.0) ng/L Total Protein (6.5-8.0) g/dL Albumin (3.5-5.0) g/dL Influenza Type A (PCR) (Negative) Influenza Type B (PCR) (Negative) RSV RNA Qual (PCR) (Negative) SARS-CoV-2 RNA (RT-PCR) (Negative) Independent Interpretation I performed an independent interpretation of an: EKG ( normal sinus rhythm. Ventricular rate 97. Pr interval 154. QRS 78. QTC 454. Negative STEMI), Ultrasound and CT Scan Radiology Impression Discussion of test interpretation with radiology: I have reviewed the radiologist's reading. Chronic Conditions Patient?s care impacted by: Other ( cirrhosis. Liver failure) Discharge Plan Discharge Clinical Impression: Lactic acidosis, Weakness, Ascites Patient Disposition: Left Against Medical Advice Instructions: Ascites (ED), Weakness (ED) Additional Instructions: You are signing out against medical advice. Your at risk of . Return to ED for any abdominal pain, chest pain, shortness of breath, weakness, dizziness, dehydration, altered mental status, or any other concerning symptoms. Recommend plenty of oral hydration for your lactic acidosis Prescriptions: No Action folic acid 1 mg tablet 1 mg PO DAILY Qty: 90 2RF metformin 1,000 mg tablet 1,000 mg PO BID Qty: 60 2RF thiamine HCl (vitamin B1) 100 mg tablet 100 mg PO DAILY Qty: 90 2RF insulin lispro 100 unit/mL Insulin Pen 0 sliding scale dose SUBCUT TIDAC Protocol: Insulin Correction Scale Less than or equal to 110 ---- Give (units): 0 111 to 150 Give (units): 0 151 to 200 Give (units): 2 201 to 250 Give (units): 4 251 to 300 Give (units): 6 301 to 350 Give (units): 8 Greater than 350 Give (units): 10 Call MD if Blood Glucose > : 350 magnesium oxide 400 mg magnesium Tablet 400 mg PO BID Xifaxan 550 mg Tablet 550 mg PO BID Qty: 60 0RF spironolactone 25 mg Tablet 25 mg PO DAILY Qty: 30 0RF Protocol: Hold for SBP< HOLD for SBP < : 90 furosemide 20 mg Tablet 20 mg PO DAILY Qty: 30 0RF Protocol: Hold for SBP< HOLD for SBP < : 90 omeprazole 20 mg capsule,delayed release(DR/EC) 1 cap PO DAILY lactulose 10 gram/15 mL solution 30 ml PO BID sodium chloride 1,000 mg tablet,soluble 1,000 mg PO DAILY Qty: 30 0RF spironolactone 25 mg Tablet 12.5 mg PO DAILY Qty: 30 0RF Protocol: Hold for SBP< HOLD for SBP < : 90 levofloxacin 750 mg Tablet 750 mg PO Q24H Qty: 14 0RF spironolactone [Aldactone] 25 mg tablet 37.5 mg PO DAILY Qty: 45 2RF Stand Alone Forms: Against Medical Advice Interventions: ED Discharge Assessment Last Done: 05/04/22 00:09 Discharge Date/Time: 05/04/22 00:10 Print Language: [place]
[2022-05-03] MEDS: 0.9 % Sodium Chloride 1,000 ML 999 ML IV ×2 (19:56)
[2022-05-03] MEDS: cefTRIAXone sodium 2 GM in 0.9 % Sodium Chloride 50 ML IV (20:01)
[2022-05-03 20:02] LABS: Influenza A PCR NEGATIVE (Negative); Influenza B PCR NEGATIVE (Negative); Resp Syncy Virus RNA Qual PCR NEGATIVE (Negative); SARS COV2 PCR INHOUSE NEGATIVE (Negative)
[2022-05-03 20:09] VITALS: BP 90/48; PULSE 107; RESP 15; O2SAT 99
--- NOTE | 2022-05-03 20:22 | PC.NURSE ---
Sepsis protocol started at 194, both liters of fluid hung and abx started
--- NOTE | 2022-05-03 20:56 | PC.NURSE ---
pt requesting to leave AMA, pt educated regarding fact that lactic is elevated, BP is low. Pt sttes I don't care, I'll come back when I am more sick . LESLEE Hernandez aware
[2022-05-03 21:04] VITALS: BP 95/55; PULSE 101; RESP 12; O2SAT 100
[2022-05-03] MEDS: Albumin Human 25 % 100 ML IV (21:04)
[2022-05-03 21:05] LABS: Reflex Lactate? Lactic Acid Added
[2022-05-03 21:34] VITALS: BP 116/65; PULSE 100; RESP 17; TEMP 36.5; O2SAT 100
[2022-05-03 21:37] LABS: Troponin-I High Sensitivity < 3.5 ng/L (<3.5-35.0)
--- NOTE | 2022-05-03 21:46 | PC.NURSE ---
pt incontinent of urine, will not allow this RN to change brief, PA aware. Pt states he would like to go home still
[2022-05-03 21:52] LABS: ~Lactic Acid-LAB USE ONLY 4.2 mmol/L (0.5-2.0)
--- NOTE | 2022-05-03 21:57 | PC.NURSE ---
Pt verbalizes wishes to leave once again, PA is at bedside discussing with pt
--- NOTE | 2022-05-03 22:10 | PC.NURSE ---
pt leaving AMA, ambulance booked
--- NOTE | 2022-05-03 22:20 | MHC.EDTECH ---
Seb called at 2207 for a bls transfer back home per Scooby Coronado within 30mins.Rn aware
[2022-05-03 23:15] LABS: Reflex Lactate? 2 Y
== END 2022-05-04 00:10 | disposition left against medical advice (07) ==
PROVIDERS: Physician Assistant; Emergency Provider Emergency Medicine
DX: E87.21 Acute metabolic acidosis (principal); R53.1 Weakness; R18.8 Other ascites; R51.9 Headache, unspecified; M54.6 Pain in thoracic spine; Z79.899 Other long term (current) drug therapy; Z20.822 Contact with and (suspected) exposure to COVID-19; Z20.828 Contact with and (suspected) exposure to other viral communicable diseases
CPT/HCPCS: 0241U; 70450; 71250; 74176; 80053; 83605; 84484; 85025; 85610; 85730; 87040; 93005; 96361; 96365; 96375; 99285; J0696; P9047

== ENCOUNTER 2022-05-07 12:49 | Emergency (ER) | payer MEDICAID, SELFPAY ==
[2022-05-07 12:57] VITALS: BP 121/76; PULSE 81; O2SAT 98; BMI 22.1
[2022-05-07 13:16] VITALS: BP 124/63; PULSE 75; RESP 16; TEMP 36.8; O2SAT 98
--- NOTE | 2022-05-07 15:30 | ED_ITS ---
HPI - General Adult General Chief complaint: Abdominal Pain Stated complaint: NOT FEELING WELL PER EMS Time Seen by Provider: 05/07/22 13:42 Source: patient Mode of arrival: ambulatory Limitations: no limitations History of Present Illness HPI narrative: 56-year-old male presents with generalized pruritus. Symptoms started several days ago. They have been progressively getting worse. He denies any fevers or chills. He has had no prior treatment. There is no clear relieving or exacerbating features. Patient is also noted swelling in his lower extremities. This does happen intermittently. He describes the symptoms as mild to moderate nature. There is no clear relieving or exacerbating features. He denies any chest pain, shortness breath, orthopnea , PND. Patient also has history of ascites. He typically has a paracentesis done approximately every 10 days. His last 1 was done approximately 1 week ago. He does report abdominal distension but he denies any pain, nausea, vomiting, dark black stools, bloody stools. Related Data Home Medications Medication Instructions Recorded Confirmed lactulose 10 gram/15 mL oral 30 ml PO BID 03/17/22 04/23/22 solution omeprazole 20 mg capsule,delayed 1 cap PO DAILY 03/17/22 04/23/22 release insulin lispro 100 unit/mL 0 sliding scale dose subcut TIDAC 04/03/22 04/23/22 subcutaneous pen magnesium oxide 400 mg PO BID 04/03/22 04/23/22 Previous Rx's Medication Instructions Recorded folic acid 1 mg tablet 1 mg PO DAILY #90 tabs 03/05/22 metformin 1,000 mg tablet 1,000 mg PO BID #60 tabs 03/05/22 thiamine HCl (vitamin B1) 100 mg 100 mg PO DAILY #90 tabs 03/05/22 tablet sodium chloride 1,000 mg soluble 1,000 mg PO DAILY #30 tabs 03/22/22 tablet furosemide 20 mg tablet 20 mg PO DAILY #30 tabs 04/08/22 rifaximin 550 mg tablet (Xifaxan) 550 mg PO BID #60 tabs 04/08/22 spironolactone 25 mg tablet 25 mg PO DAILY #30 tabs 04/08/22 levofloxacin 750 mg tablet 750 mg PO Q24H #14 tabs 04/30/22 spironolactone 25 mg tablet 12.5 mg PO DAILY #30 tabs 04/30/22 spironolactone 25 mg tablet 37.5 mg PO DAILY #45 tabs 04/30/22 (Aldactone) hydroxyzine HCl 25 mg tablet 25 mg PO TID PRN itching #14 tabs 05/07/22 nystatin 100,000 unit/gram topical 1 appl topical BID #30 grams 05/07/22 cream Allergies Allergy/AdvReac Type Severity Reaction Status Date / Time acetaminophen [From PERCOCET] Allergy Severe AGITATION Verified 04/13/22 18:14 oxycodone [From PERCOCET] Allergy Severe AGITATION Verified 04/13/22 18:14 bee pollen [Bee Stings] Allergy Mild SWELLING Verified 04/13/22 18:14 lorazepam AdvReac Unknown AGITATION Verified 04/13/22 18:14 Review of Systems Review of Systems: CONSTITUTIONAL: Denies weight loss, fever and chills. HEENT: Denies changes in vision and hearing. RESPIRATORY: Denies SOB and cough. CV: Denies palpitations no CP. Positive edema GI: Denies abdominal pain, nausea, vomiting and diarrhea. : Denies dysuria and urinary frequency. MSK: Denies myalgia and joint pain. SKIN: + rash and pruritus. NEUROLOGICAL: Denies headache and syncope. PSYCHIATRIC: Denies recent changes in mood. Denies anxiety and depression. All other ROS are negative unless in HPI PMFSH Past Medical History Medical History SAUL (acute kidney injury) SAUL (acute kidney injury) Alcohol abuse Alcoholic cirrhosis Ascites Diabetes Elevated liver enzymes Hypertension Hyponatremia Liver cirrhosis Pressure ulcer Withdrawal seizures Surgical History No pertinent past surgical history Family History Family History Other No family history of coronary artery disease Social History Social History Household Members: Significant Other Housing: House Do you presently have visiting nurse or other home services: Yes Unable to assess alcohol history related to: Refusing to respond Alcohol intake: current Alcohol intake frequency: does not drink Alcohol type: beer and hard liquor Patient Tobacco Use Status: Never used Tobacco Tobacco use type: Smokeless Tobacco Smoked in Last 30 Days: No Second Hand Smoke Exposure: No Use of substances other than those prescribed or required for medical reasons: No Advance Directives: Yes Advance Directives on File: Yes Advance Directives Date on File: 03/18/22 service: Yes Current occupational status: unemployed Physical Exam ED Vital Signs: Vital Signs - 24 hr 05/07/22 13:16 Temperature 98.2 F Pulse Rate 75 Respiratory Rate 16 Blood Pressure 124/63 Pulse Oximetry 98 Oxygen Delivery Method Room Air BMI result Body Mass Index 22.1 GEN: Well developed, no acute distress, alert, oriented HEENT: Normocephalic, atraumatic, normal external ears, nose appears normal, no oropharyngeal edema or exudates Eyes: Normal to appearance Neck: Supple, no lymphadenopathy Respiratory: Talks in complete sentences, no respiratory distress, clear to auscultation bilaterally Cardiovascular: Regular rate and rhythm, no murmurs rubs or gallops Abdomen: Soft, nontender, nondistended, no guarding, no rebound Back: No CVA tenderness Extremities: No clubbing cyanosis + 1+ edema Neurologic: No focal neurologic deficits, cranial nerves 2-12 intact, strength is 5/5 bilaterally, gait normal Skin: Scattered excoriations. Rash consistent with tinea cruris Course Course Course Narrative: 56-year-old male with history of liver disease with ascites presents with generalized pruritus, lower extremity edema. Patient denies any active alcohol intake. Patient does have excoriations scattered throughout his body. He is not jaundiced or icteric at this time. Will check for elevated bilirubin level to see if biliary salts are causing his pruritus. Additionally, he has tinea cruris which could be treated with topical medications. Will also start patient on oral antihistamines. Reevaluation(s) Reevaluation #1: Current lab work is pending. I have already given the patient a dose of hydroxyzine in hopes of improving his symptoms. Assuming patient may be able to be discharged, if symptoms present for nystatin cream as well as hydroxyzine to his pharmacy. At this time, Dr. Christopher will be assuming care pending laboratory results. Time: 16:20 Medications Administered Discontinued Medications Generic Name Dose Route Start Last Admin Trade Name Freq PRN Reason Stop Dose Admin Hydroxyzine HCl 50 mg 05/07/22 15:29 05/07/22 16:02 Hydroxyzine Hcl 50 Mg Tablet PO 05/07/22 15:30 50 mg ONCE ONE Administration Medical Decision Making Medical Decision Making MDM Narrative: 56-year-old male with history of liver disease with ascites presents with g eneralized pruritus, lower extremity edema. Patient denies any active alcohol intake. Patient does have excoriations scattered throughout his body. He is not jaundiced or icteric at this time. Will check for elevated bilirubin level to see if biliary salts are causing his pruritus. Additionally, he has tinea cruris which could be treated with topical medications. Will also start patient on oral antihistamines. Differential Diagnosis Differential Diagnoses: The differential diagnosis associated with the presentation includes (Tinea, pruritus, allergic reaction, biliary related) Admission/Observation Consideration of admission/observation: Escalation of care including admission /observation considered Lab Data 05/07/22 16:02 05/07/22 16:02 Discharge Plan Discharge Clinical Impression: Generalized pruritus, Ascites, Tinea cruris Patient Disposition: Still a Patient Instructions: Jock Itch (ED), Ascites (ED), Itchy Skin (ED) Prescriptions: New hydroxyzine HCl 25 mg tablet 25 mg PO TID PRN (Reason: itching) Qty: 14 0RF nystatin 100,000 unit/gram cream 1 appl topical BID Qty: 30 0RF No Action folic acid 1 mg tablet 1 mg PO DAILY Qty: 90 2RF metformin 1,000 mg tablet 1,000 mg PO BID Qty: 60 2RF thiamine HCl (vitamin B1) 100 mg tablet 100 mg PO DAILY Qty: 90 2RF insulin lispro 100 unit/mL Insulin Pen 0 sliding scale dose SUBCUT TIDAC Protocol: Insulin Correction Scale Less than or equal to 110 ---- Give (units): 0 111 to 150 Give (units): 0 151 to 200 Give (units): 2 201 to 250 Give (units): 4 251 to 300 Give (units): 6 301 to 350 Give (units): 8 Greater than 350 Give (units): 10 Call MD if Blood Glucose > : 350 magnesium oxide 400 mg magnesium Tablet 400 mg PO BID Xifaxan 550 mg Tablet 550 mg PO BID Qty: 60 0RF spironolactone 25 mg Tablet 25 mg PO DAILY Qty: 30 0RF Protocol: Hold for SBP< HOLD for SBP < : 90 furosemide 20 mg Tablet 20 mg PO DAILY Qty: 30 0RF Protocol: Hold for SBP< HOLD for SBP < : 90 omeprazole 20 mg capsule,delayed release(DR/EC) 1 cap PO DAILY lactulose 10 gram/15 mL solution 30 ml PO BID sodium chloride 1,000 mg tablet,soluble 1,000 mg PO DAILY Qty: 30 0RF spironolactone 25 mg Tablet 12.5 mg PO DAILY Qty: 30 0RF Protocol: Hold for SBP< HOLD for SBP < : 90 levofloxacin 750 mg Tablet 750 mg PO Q24H Qty: 14 0RF spironolactone [Aldactone] 25 mg tablet 37.5 mg PO DAILY Qty: 45 2RF Referrals: Physician,Unknown J [Primary Care Provider] - (primary care in 2-3 days)
[2022-05-07] MEDS: hydrOXYzine HCL 50 MG TABLET PO (16:02)
[2022-05-07 16:06] LABS: MANUAL DIFF FLAG NO
[2022-05-07 16:09] LABS: Basophils Absolute Auto 0.1 X10*3/uL (0.0-0.2); Eosinophils Absolute Auto 0.1 X10*3/uL (0.0-0.4); Eosinophils Percent Auto 1.4 % (0-4); Hemoglobin 8.4 g/dl (14.0-18.0); Imm Gran Abs Auto 0.04 X10*3/uL (0.00-0.03); Imm Gran Pct Auto 0.4 % (0.0-0.4); Lymphocytes Absolute Auto 0.9 X10*3/uL (1.2-4.9); Lymphocytes Percent Auto 9.8 % (20-40); Mean Corpuscular HGB Conc 33.6 g/dl (31.0-36.0); Mean Corpuscular Hemoglobin 33.9 pg (27.0-33.0); Mean Corpuscular Volume 100.8 fL (80.0-98.0); Mean Platelet Volume 9.2 fL (9.4-12.4); Monocytes Absolute Auto 0.9 X10*3/uL (0.1-1.2); Monocytes Percent Auto 9.3 % (2-11); Neutrophils Absolute Auto 7.3 x10*3/uL (2.0-8.3); Neutrophils Percent Auto 78.1 % (45-73); Red Blood Count 2.48 X10*6/uL (4.60-5.80); White Blood Count 9.3 X10*3/uL (4.8-10.8)
[2022-05-07 16:20] LABS: Platelet Count 85 X10*3/uL (160-400)
[2022-05-07 16:27] LABS: Alanine Aminotransferase 22 U/L (0-40); Albumin Level 2.6 g/dL (3.5-5.0); Alkaline Phosphatase 208 U/L (39-117); Anion Gap 13 (12-20); Aspartate Amino Transferase 36 U/L (5-37); Bilirubin Direct 0.9 mg/dL (0.0-0.5); Bilirubin Total 2.8 mg/dL (0.0-1.0); Blood Urea Nitrogen 23 mg/dL (9-16); Calcium 8.6 mg/dL (8.4-10.2); Carbon Dioxide 20 mmol/L (22-29); Chloride 103 mmol/L (96-108); Estimated Glomerular Filt Rate > 60; Gamma Glutamyl Transpeptidase 167 U/L (11-51); Glucose Random 131 mg/dL (60-115); Sodium 131 mmol/L (135-145); Total Protein 5.4 g/dL (6.5-8.0)
--- NOTE | 2022-05-07 19:50 | PC.NURSE ---
assumed care of pt , a&o, no apparent distress
[2022-05-07 19:58] VITALS: BP 97/65; PULSE 94; RESP 20; TEMP 36.6; O2SAT 96
--- NOTE | 2022-05-07 19:58 | PC.NURSE ---
Addendum entered by Christina Blandon 05/07/22 20:12: pt discharge via EMS, Swapna on a stretcher, a&o, no apparent distress Original Note: discharge instructions given/explained, no apparent distress, pt uses walker at baseline, brought in by EMS w/o walker, transfers to wheelchair safely, all of pt's questions answered
== END 2022-05-07 20:02 | disposition home or self-care (01) ==
PROVIDERS: Emergency Provider Emergency Medicine
DX: L29.9 Pruritus, unspecified (principal); R18.8 Other ascites; B35.6 Tinea cruris; Z79.899 Other long term (current) drug therapy
CPT/HCPCS: 36415; 80048; 80076; 82977; 85025; 99283; 99284

== ENCOUNTER 2022-05-12 15:20 | Emergency (ER) | payer MEDICAID, SELFPAY ==
--- NOTE | ~2022-05-12 | XR_ITS ---
EXAMINATION: XR WRIST, RIGHT CLINICAL INFORMATION: Wrist pain COMPARISON: None TECHNIQUE: PA, lateral, and oblique views of the right wrist. FINDINGS: No acute fracture or dislocation. Mild degenerative changes of the first CMC, triscaphe and radiocarpal articulations. Alignment is anatomic with normal joint spaces. No erosions . Chondrocalcinosis. Monckeberg medial calcific sclerosis. XR/XR wrist RT 2V IMPRESSION: * No acute findings. * Mild degenerative changes of the first CMC, triscaphe and radiocarpal articulations. * Chondrocalcinosis.
[2022-05-12 15:28] VITALS: BP 106/67; PULSE 102; RESP 14; TEMP 36.8; O2SAT 99
[2022-05-12 15:29] VITALS: BP 110/76; PULSE 106; O2SAT 97; BMI 34.2
--- NOTE | 2022-05-12 15:51 | ED_ITS ---
HPI - Abdominal Pain General Chief Complaint: Abdominal Pain Stated Complaint: ABD PAIN W/DISTENDED,WEAK PER EMS Time Seen by Provider: 05/12/22 15:50 Source: patient Mode of arrival: ambulatory Limitations: no limitations History of Present Illness HPI narrative: patient with arm pain, denies injury. States that the arm started to hurt yesterday Pertinent past history: other (cirrhosis) Onset (ago): day(s) Pain Consistency: constant Severity: mild Related Data Home Medications Medication Instructions Recorded Confirmed lactulose 10 gram/15 mL oral 30 ml PO BID 03/17/22 04/23/22 solution omeprazole 20 mg capsule,delayed 1 cap PO DAILY 03/17/22 04/23/22 release insulin lispro 100 unit/mL 0 sliding scale dose subcut TIDAC 04/03/22 04/23/22 subcutaneous pen magnesium oxide 400 mg PO BID 04/03/22 04/23/22 Previous Rx's Medication Instructions Recorded folic acid 1 mg tablet 1 mg PO DAILY #90 tabs 03/05/22 metformin 1,000 mg tablet 1,000 mg PO BID #60 tabs 03/05/22 thiamine HCl (vitamin B1) 100 mg 100 mg PO DAILY #90 tabs 03/05/22 tablet sodium chloride 1,000 mg soluble 1,000 mg PO DAILY #30 tabs 03/22/22 tablet furosemide 20 mg tablet 20 mg PO DAILY #30 tabs 04/08/22 rifaximin 550 mg tablet (Xifaxan) 550 mg PO BID #60 tabs 04/08/22 spironolactone 25 mg tablet 25 mg PO DAILY #30 tabs 04/08/22 levofloxacin 750 mg tablet 750 mg PO Q24H #14 tabs 04/30/22 spironolactone 25 mg tablet 12.5 mg PO DAILY #30 tabs 04/30/22 spironolactone 25 mg tablet 37.5 mg PO DAILY #45 tabs 04/30/22 (Aldactone) hydroxyzine HCl 25 mg tablet 25 mg PO TID PRN itching #14 tabs 05/07/22 nystatin 100,000 unit/gram topical 1 appl topical BID #30 grams 05/07/22 cream Allergies Allergy/AdvReac Type Severity Reaction Status Date / Time acetaminophen [From PERCOCET] Allergy Severe AGITATION Verified 05/12/22 15:32 oxycodone [From PERCOCET] Allergy Severe AGITATION Verified 05/12/22 15:32 bee pollen [Bee Stings] Allergy Mild SWELLING Verified 05/12/22 15:32 lorazepam AdvReac Unknown AGITATION Verified 05/12/22 15:32 Review of Systems Review of Systems Yes all other systems are reviewed and are negative Comments: right wrist pain PMFSH Past Medical History Medical History SAUL (acute kidney injury) SAUL (acute kidney injury) Alcohol abuse Alcoholic cirrhosis Ascites Diabetes Elevated liver enzymes Hypertension Hyponatremia Liver cirrhosis Pressure ulcer Withdrawal seizures Surgical History No pertinent past surgical history Family History Family History Other No family history of coronary artery disease Social History Social History Household Members: Significant Other Housing: House Do you presently have visiting nurse or other home services: Yes Unable to assess alcohol history related to: Refusing to respond Alcohol intake: current Alcohol intake frequency: does not drink Alcohol type: beer and hard liquor Patient Tobacco Use Status: Never used Tobacco Tobacco use type: Smokeless Tobacco Second Hand Smoke Exposure: No Advance Directives: Yes Advance Directives on File: Yes Advance Directives Date on File: 03/18/22 service: Yes Current occupational status: unemployed Physical Exam ED Vital Signs: Vital Signs - 24 hr 05/12/22 15:28 Temperature 98.3 F Pulse Rate 102 H Respiratory Rate 14 Blood Pressure 106/67 Pulse Oximetry 99 Oxygen Delivery Method Room Air BMI result Body Mass Index 34.2 Const Other: chronically ill endstage male in no acute distress Orientation/consciousness: oriented to person and patient oriented x3 Limitations: no limitations HENMT Head: Yes normal to inspection Ears: external ears normal General nose exam: Normal external nose present Mouth: Normal oral and palatal mucosa present and oropharynx normal Throat: Yes posterior oropharynx normal Eyes General: appearance normal, both eyes and all related structures Neck Neck: Yes normal visual inspection Chest Chest palpation & inspection: normal inspection of the chest Resp Auscultation: clear to auscultation bilaterally Cardio Jugular venous distension: no JVD Rate: regular rate Rhythm: regular rhythm Heart sounds: S1 normal heart sound present and S2 normal heart sound present GI Other: very distended with ascitic fluid, non tender Auscultation: normal bowel sounds General: Yes no CVA tenderness Back/Spine/Pelvis Back: no CVA tenderness Skin General skin exam: no rashes or lesions noted Neuro General: oriented to person and patient oriented x3 Cranial nerves: Yes CN's II-XII intact bilaterally Motor exam (neuro): 5/5 motor strength present throughout Extrem Other: normal inspection FROM Psych Appearance: grossly normal Course Reevaluation(s) Reevaluation #1: patient with endstage liver disease with large ascities will place in wrist s plint and dc home Time: 16:20 Medical Decision Making Differential Diagnosis Differential Diagnoses: The differential diagnosis associated with the presentation includes (cellulitis, wrist fracture, degenerative disease) Independent Interpretation I performed an independent interpretation of an: Plain X-Ray (osteopenia, degenerative disease, vascular calcifications) Chronic Conditions Patient?s care impacted by: Other (end stage liver disease) Discharge Plan Discharge Clinical Impression: Acute wrist pain, Osteoarthritis Patient Disposition: Home, Self-Care Instructions: Arthralgia (ED), Osteoarthritis (ED) Prescriptions: No Action folic acid 1 mg tablet 1 mg PO DAILY Qty: 90 2RF metformin 1,000 mg tablet 1,000 mg PO BID Qty: 60 2RF thiamine HCl (vitamin B1) 100 mg tablet 100 mg PO DAILY Qty: 90 2RF insulin lispro 100 unit/mL Insulin Pen 0 sliding scale dose SUBCUT TIDAC Protocol: Insulin Correction Scale Less than or equal to 110 ---- Give (units): 0 111 to 150 Give (units): 0 151 to 200 Give (units): 2 201 to 250 Give (units): 4 251 to 300 Give (units): 6 301 to 350 Give (units): 8 Greater than 350 Give (units): 10 Call MD if Blood Glucose > : 350 magnesium oxide 400 mg magnesium Tablet 400 mg PO BID Xifaxan 550 mg Tablet 550 mg PO BID Qty: 60 0RF spironolactone 25 mg Tablet 25 mg PO DAILY Qty: 30 0RF Protocol: Hold for SBP< HOLD for SBP < : 90 furosemide 20 mg Tablet 20 mg PO DAILY Qty: 30 0RF Protocol: Hold for SBP< HOLD for SBP < : 90 omeprazole 20 mg capsule,delayed release(DR/EC) 1 cap PO DAILY lactulose 10 gram/15 mL solution 30 ml PO BID sodium chloride 1,000 mg tablet,soluble 1,000 mg PO DAILY Qty: 30 0RF spironolactone 25 mg Tablet 12.5 mg PO DAILY Qty: 30 0RF Protocol: Hold for SBP< HOLD for SBP < : 90 levofloxacin 750 mg Tablet 750 mg PO Q24H Qty: 14 0RF spironolactone [Aldactone] 25 mg tablet 37.5 mg PO DAILY Qty: 45 2RF hydroxyzine HCl 25 mg tablet 25 mg PO TID PRN (Reason: itching) Qty: 14 0RF nystatin 100,000 unit/gram cream 1 appl topical BID Qty: 30 0RF Referrals: Physician,Unknown J [Primary Care Provider] - 1 week
--- NOTE | 2022-05-12 17:31 | PC.NURSE ---
patient abd distended. tender to palpation. made aware. xray of wrist negative for acute fracture.
== END 2022-05-12 17:33 | disposition home or self-care (01) ==
PROVIDERS: Emergency Provider Emergency Medicine
DX: M25.531 Pain in right wrist (principal); M19.031 Primary osteoarthritis, right wrist; B35.6 Tinea cruris; K70.31 Alcoholic cirrhosis of liver with ascites; F10.20 Alcohol dependence, uncomplicated; K72.10 Chronic hepatic failure without coma; E11.9 Type 2 diabetes mellitus without complications; I10 Essential (primary) hypertension; Z79.4 Long term (current) use of insulin; Z79.899 Other long term (current) drug therapy
CPT/HCPCS: 73100; 99283

== ENCOUNTER 2022-05-20 14:44 | Inpatient (IN) | payer MEDICAID, SELFPAY ==
--- NOTE | ~2022-05-20 | XR_ITS ---
EXAMINATION: XR CHEST CLINICAL INFORMATION: Chest pain. COMPARISON: 04/25/2022 chest radiograph. TECHNIQUE: Frontal view of the chest was obtained. FINDINGS: There is mild elevation of the right hemidiaphragm. The lungs are clear. The heart and mediastinal structures are unremarkable. XR/XR chest 1V IMPRESSION: No acute cardiopulmonary process.
--- NOTE | ~2022-05-20 | US_ITS ---
EXAMINATION: ULTRASOUND-GUIDED PARACENTESIS. CLINICAL INFORMATION: Diffuse ascites and cirrhosis. COMPARISON: None TECHNIQUE: Following explaining ultrasound-guided paracentesis procedure, benefits and risk, a written consent was obtained. Patient was placed supine on ultrasound stretcher and preliminary ultrasound imaging was obtained. An optimal site was selected along the left lower quadrant and marked. The marked site was cleaned and draped in usual sterile manner. 1% lidocaine was injected puncture site. Through a small skin incision a 5 [place] Cribsp[place]h catheter was advanced into the peritoneal space. After observing fluid return, stylet was withdrawn and catheter connected to vacuum bottle via connecting cannula. After obtaining all fluid and observing no more fluid return, catheter was withdrawn and complete hemostasis achieved at puncture site. Sterile dressing applied postprocedure. Patient tolerated procedure extremely well. FINDINGS: On preliminary ultrasound imaging there is large amount of free fluid in the abdomen. Approximately 10 L of clear yellowish fluid was removed and part of this fluid was sent for lab testing. US/US paracentesis abd w/image IMPRESSION: Successful therapeutic and diagnostic paracentesis performed without immediate compilations.
--- NOTE | ~2022-05-20 | CT_ITS ---
EXAMINATION: CT ABDOMEN AND PELVIS WITHOUT CONTRAST CLINICAL INFORMATION: Ascites pain on the right COMPARISON: 05/03/2022 TECHNIQUE: Multidetector volumetric imaging was performed from the superior aspect of the liver through the pubic symphysis. Sagittal and coronal reformatted images were obtained on the technologist's workstation. This CT examination was performed using dose optimization techniques as appropriate, variously including the following: *Automated exposure control *Adjustment of mA and/or kV according to patient size (this includes techniques or standardized protocols for targeted exams where dose is matched to indication/reason for exam; i.e. extremities or head) *Use of iterative reconstruction technique DLP: D5 mGy-cm FINDINGS: LUNG BASES: Small right basilar effusion with adjacent atelectasis or infiltrate LIVER, GALLBLADDER, AND BILIARY TREE: Once again markedly irregular contour to the liver consistent with cirrhosis. Hyperdense gallbladder wall once again seen. This may be consistent with a porcelain gallbladder PANCREAS: Unremarkable. SPLEEN: Mild splenomegaly similar to previous ADRENAL GLANDS: Unremarkable. KIDNEYS AND URETERS: Once again nonobstructing calculi are noted BLADDER: Incompletely evaluated. GASTROINTESTINAL TRACT: The bowel pattern appears nonobstructing. Marked ascites in the upper abdomen and marked ascites in the lower abdomen increasing from previous. ABDOMINAL WALL: Fluid likely adenoma likely hernia. Some fluid once again seen adjacent to the anterior left pericardium of uncertain etiology. This is loculated. LYMPH NODES: Normal. VASCULAR: Unremarkable. PELVIC VISCERA: Unremarkable. OSSEOUS STRUCTURES: Intralisthesis of L5 on S1 with spondylolysis. No acute finding. Degenerative changes are noted. CT/CT abdomen pelvis wo IV con IMPRESSION: Marked ascites throughout the abdomen pelvis increasing from previous exam Small right lower lobe effusion with adjacent atelectasis or infiltrate. Once again small liver with coarse contour consistent with cirrhosis. If an underlying lesion needs to be excluded pre and postcontrast MR is recommended. 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 Densities behind the nipple right and left breast could represent gynecomastia. Correlate with ultrasound and mammogram
[2022-05-20 15:20] VITALS: BP 118/68; PULSE 100; PULSE 102; RESP 18; TEMP 36.6; O2SAT 98; O2SAT 99; BMI 28.4
[2022-05-20 16:00] VITALS: BP 93/51; PULSE 102; RESP 16; TEMP 36.4
--- NOTE | 2022-05-20 16:31 | ECG_ITS ---
Test Reason : ABD PAIN Blood Pressure : / mmHG Vent. Rate : 093 BPM Atrial Rate : 093 BPM P-R Int : 162 ms QRS Dur : 080 ms QT Int : 360 ms P-R-T Axes : 020 047 040 degrees QTc Int : 447 ms Normal sinus rhythm Low voltage QRS Borderline ECG When compared with ECG of 03-MAY-2022 19:05, No significant change was found Referred By: Ena Box Electronically Signed By:JERRELL BLAIR MD
--- NOTE | 2022-05-20 16:59 | ED.ABDPAIN ---
HPI - Abdominal Pain General Chief Complaint: Abdominal Pain Stated Complaint: R side abd pain, abd distended per EMS Time Seen by Provider: 05/20/22 16:08 History of Present Illness HPI narrative: But now patient is a 56-year-old male history of sepsis in the past. History of liver cirrhosis secondary to EtOH abuse. Presented today with having pain over the right side of the abdomen also to the hip area. Patient lies to his right side. Noticed a rash there. Patient from home. Denies drinking any alcohol recently. Related Data Home Medications Medication Instructions Recorded Confirmed insulin lispro 100 unit/mL 0 sliding scale dose subcut TIDAC 04/03/22 05/20/22 subcutaneous pen acetaminophen 325 mg tablet 650 mg PO Q6H PRN Pain 05/20/22 05/20/22 calamine phenolated lotion 1 appl topical QID PRN Rash 05/20/22 05/20/22 melatonin 3 mg tablet 6 mg PO BEDTIME 05/20/22 05/20/22 metformin 1,000 mg tablet 1 tab PO BIDAC 05/20/22 05/20/22 omeprazole 20 mg capsule,delayed 20 mg PO DAILY@0630 05/20/22 05/20/22 release Previous Rx's Medication Instructions Recorded folic acid 1 mg tablet 1 mg PO DAILY #90 tabs 03/05/22 furosemide 20 mg tablet 20 mg PO DAILY #30 tabs 04/08/22 rifaximin 550 mg tablet (Xifaxan) 550 mg PO BID #60 tabs 04/08/22 clotrimazole 1 % topical cream 1 appl topical BID 8 weeks #45 05/12/22 (Lotrimin AF (clotrimazole)) grams lactulose 10 gram/15 mL oral 30 ml PO BID #473 mL 05/18/22 solution sodium chloride 1,000 mg soluble 1,000 mg PO DAILY #30 tabs 05/18/22 tablet thiamine HCl (vitamin B1) 100 mg 100 mg PO DAILY #90 tabs 05/18/22 tablet Allergies Allergy/AdvReac Type Severity Reaction Status Date / Time acetaminophen [From PERCOCET] Allergy Severe AGITATION Verified 05/12/22 15:32 oxycodone [From PERCOCET] Allergy Severe AGITATION Verified 05/12/22 15:32 bee pollen [Bee Stings] Allergy Mild SWELLING Verified 05/12/22 15:32 lorazepam AdvReac Unknown AGITATION Verified 05/12/22 15:32 Review of Systems Review of Systems Positive pain to the right side into the hip area [facility] Past Medical History Attestation statement: The following information was validated with the patient. Medical History SAUL (acute kidney injury) SAUL (acute kidney injury) Alcohol abuse Alcoholic cirrhosis Ascites Diabetes Elevated liver enzymes Hypertension Hyponatremia Liver cirrhosis Pressure ulcer Withdrawal seizures Surgical History No pertinent past surgical history Family History Family History Other No family history of coronary artery disease Social History Social History Household Members: Significant Other Housing: House Do you presently have visiting nurse or other home services: Yes Unable to assess alcohol history related to: Refusing to respond Alcohol intake: current Alcohol intake frequency: does not drink Alcohol type: beer and hard liquor Patient Tobacco Use Status: Never used Tobacco Tobacco use type: Smokeless Tobacco Second Hand Smoke Exposure: No Advance Directives: Yes Advance Directives Information Provided: No Advance Directives on File: No Advance Directives Date on File: 03/18/22 service: Yes Current occupational status: unemployed Physical Exam ED Vital Signs: Vital Signs - 24 hr 05/20/22 15:20 05/20/22 16:00 05/20/22 18:00 Temperature 97.8 F 97.5 F 97.6 F Pulse Rate 100 102 H 93 Respiratory Rate 18 16 16 Blood Pressure 118/68 93/51 L 100/55 L Pulse Oximetry 99 100 Oxygen Delivery Method Room Air Room Air Room Air 05/20/22 19:54 05/20/22 21:05 Temperature 97.4 F 97.0 F Pulse Rate 81 100 Respiratory Rate 16 16 Blood Pressure 111/91 H 96/53 L Pulse Oximetry 100 98 Oxygen Delivery Method Room Air Room Air BMI result Body Mass Index 28.4 Appearance: Alert. Oriented X3. No acute distress. Eyes: Pupils equal, round and reactive to light. ENT: Pharynx normal. Neck: Normal inspection. Neck supple. No lymph nodes noted. No crepitus CVS: Normal heart rate and rhythm. Pulses normal. Normal S1 and S2 Respiratory: No respiratory distress. Breath sounds normal. No Wheezing. No rales Abdomen: Tympanitic protuberant abdomen liver grossly enlarged at least 5 fingerbreadths below the costal margin. Skin: Positive wet appearing rash over the right abdomen and over the right hip area. Appears moist red. Extremities: No lower extremity edema. Neurovascular intact to all extremities. No Lacerations. No Rash Neuro: Oriented X 3. No motor deficit. No sensory deficit. Moving all extermities. No slurred speech Medical Decision Making Medical Decision Making [facility] Narrative: Patient presented today with having grossly distended abdomen tympanitic consistent with having ascites. Liver enlarged. Consistent with history of cirrhosis. Patient's lactate slightly elevated likely related to liver cirrhosis and not 2 sepsis. Patient has a wet appearing rash over the right side of the abdomen and over the hip area. Likely from having a fungal infection over the area. Nevertheless a CT scan of the abdomen pelvis was done. There is no evidence for any subcutaneous air. There is no evidence for any necrotizing fasciitis. Patient ammonia level grossly elevated at over 100. He has been noncompliant with his medication. Lactulose was started. Patient's case discussed with the hospitalist team. Cultures were obtained. Case discussed with ultrasound to obtain paracentesis in a.m. patient's urine showed no signs of infection. Case discussed with patient for admission. Differential Diagnosis Differential Diagnoses: The differential diagnosis associated with the presentation includes Hepatic encephalopathy, liver cirrhosis, skin infection Admission/Observation Consideration of admission/observation: Escalation of care including admission/observation considered Consult Healthcare Provider Management of the patient was discussed with: Hospitalist Lab Data [facility] Lab Attestation statement: I reviewed the patient's lab results. 05/20/22 17:46 05/20/22 17:46 Labs: Lab Results 05/20/22 05/20/22 05/20/22 Range/Units 17:46 17:46 17:46 WBC 8.8 (4.8-10.8) X10*3/uL RBC 2.86 L (4.60-5.80) X10*6/uL Hgb 9.9 L (14.0-18.0) g/dl Hct 29.4 L (42.0-52.0) % MCV 102.8 H (80.0-98.0) fL MCH 34.6 H (27.0-33.0) pg MCHC 33.7 (31.0-36.0) g/dl RDW 16.1 H (11.0-16.0) % Plt Count 119 L D (160-400) X10*3/uL MPV 9.8 (9.4-12.4) fL Immature Gran % (Auto) 0.3 (0.0-0.4) % Neut % (Auto) 77.9 H (45-73) % Lymph % (Auto) 10.4 L (20-40) % [place] % (Auto) 8.4 (2-11) % Eos % (Auto) 1.9 (0-4) % Baso % (Auto) 1.1 (0-2) % Lymph # (Auto) 0.9 L (1.2-4.9) X10*3/uL [place] # (Auto) 0.7 (0.1-1.2) X10*3/uL Eos # (Auto) 0.2 (0.0-0.4) X10*3/uL Baso # (Auto) 0.1 (0.0-0.2) X10*3/uL Abs Immat Gran (auto) 0.03 (0.00-0.03) X10*3/uL Absolute Neuts (auto) 6.9 (2.0-8.3) x10*3/uL Absolute Nucleated RBC 0.000 (0.0-0.012) X10*3/uL Nucleated RBC % (auto) 0.0 (0.0-0.2) /100WBC Sodium 131 L (135-145) mmol/L Potassium 5.7 H (3.3-5.1) mmol/L Chloride 104 (96-108) mmol/L Carbon Dioxide 15 L (22-29) mmol/L Anion Gap 18 (12-20) BUN 38 H (9-16) mg/dL Creatinine 1.61 H (0.5-1.4) mg/dL Estim Creat Clear Calc 51.5 Estimated GFR 45 Random Glucose 119 H (60-115) mg/dL Lactic Acid 4.2 H* (0.5-2.0) mmol/L Lactic Acid F/U @ 2Hr (0.5-2.0) mmol/L Calcium 8.4 (8.4-10.2) mg/dL Total Bilirubin 2.3 H (0.0-1.0) mg/dL Direct Bilirubin 0.8 H (0.0-0.5) mg/dL AST 33 (5-37) U/L ALT 16 (0-40) U/L Alkaline Phosphatase 145 H (39-117) U/L Ammonia (13-55) umol/L Total Protein 6.0 L (6.5-8.0) g/dL Albumin 2.3 L (3.5-5.0) g/dL Lipase 23 (8-78) U/L Urine Color Urine Appearance Urine pH (5.0-9.0) Ur Specific [place] (1.005-1.025) Urine Protein (Neg-Trace) mg/dL Urine Glucose (UA) (Negative) mg/dL Urine Ketones (Negative) mg/dL Urine Blood (Negative) Urine Nitrite (Negative) Ur Leukocyte Esterase (Negative) Urine RBC (0-2) /HPF Urine WBC (0-5) /HPF Ur Squamous Epith Cells (0-2) /HPF Urine Bacteria (None Seen) Hyaline Casts (0-2) /LPF Ethyl Alcohol mg/dL 05/20/22 05/20/22 05/20/22 Range/Units 20:51 20:51 20:51 WBC (4.8-10.8) X10*3/uL RBC (4.60-5.80) X10*6/uL Hgb (14.0-18.0) g/dl Hct (42.0-52.0) % MCV (80.0-98.0) fL MCH (27.0-33.0) pg MCHC (31.0-36.0) g/dl RDW (11.0-16.0) % Plt Count (160-400) X10*3/uL MPV (9.4-12.4) fL Immature Gran % (Auto) (0.0-0.4) % Neut % (Auto) (45-73) % Lymph % (Auto) (20-40) % [place] % (Auto) (2-11) % Eos % (Auto) (0-4) % Baso % (Auto) (0-2) % Lymph # (Auto) (1.2-4.9) X10*3/uL [place] # (Auto) (0.1-1.2) X10*3/uL Eos # (Auto) (0.0-0.4) X10*3/uL Baso # (Auto) (0.0-0.2) X10*3/uL Abs Immat Gran (auto) (0.00-0.03) X10*3/uL Absolute Neuts (auto) (2.0-8.3) x10*3/uL Absolute Nucleated RBC (0.0-0.012) X10*3/uL Nucleated RBC % (auto) (0.0-0.2) /100WBC Sodium (135-145) mmol/L Potassium (3.3-5.1) mmol/L Chloride (96-108) mmol/L Carbon Dioxide (22-29) mmol/L Anion Gap (12-20) BUN (9-16) mg/dL Creatinine (0.5-1.4) mg/dL Estim Creat Clear Calc Estimated GFR Random Glucose (60-115) mg/dL Lactic Acid (0.5-2.0) mmol/L Lactic Acid F/U @ 2Hr 5.0 H* (0.5-2.0) mmol/L Calcium (8.4-10.2) mg/dL Total Bilirubin (0.0-1.0) mg/dL Direct Bilirubin (0.0-0.5) mg/dL AST (5-37) U/L ALT (0-40) U/L Alkaline Phosphatase (39-117) U/L Ammonia 112 H (13-55) umol/L Total Protein (6.5-8.0) g/dL Albumin (3.5-5.0) g/dL Lipase (8-78) U/L Urine Color Urine Appearance Urine pH (5.0-9.0) Ur Specific [place] (1.005-1.025) Urine Protein (Neg-Trace) mg/dL Urine Glucose (UA) (Negative) mg/dL Urine Ketones (Negative) mg/dL Urine Blood (Negative) Urine Nitrite (Negative) Ur Leukocyte Esterase (Negative) Urine RBC (0-2) /HPF Urine WBC (0-5) /HPF Ur Squamous Epith Cells (0-2) /HPF Urine Bacteria (None Seen) Hyaline Casts (0-2) /LPF Ethyl Alcohol < 10 mg/dL 05/20/22 Range/Units 21:12 WBC (4.8-10.8) X10*3/uL RBC (4.60-5.80) X10*6/uL Hgb (14.0-18.0) g/dl Hct (42.0-52.0) % MCV (80.0-98.0) fL MCH (27.0-33.0) pg MCHC (31.0-36.0) g/dl RDW (11.0-16.0) % Plt Count (160-400) X10*3/uL MPV (9.4-12.4) fL Immature Gran % (Auto) (0.0-0.4) % Neut % (Auto) (45-73) % Lymph % (Auto) (20-40) % [place] % (Auto) (2-11) % Eos % (Auto) (0-4) % Baso % (Auto) (0-2) % Lymph # (Auto) (1.2-4.9) X10*3/uL [place] # (Auto) (0.1-1.2) X10*3/uL Eos # (Auto) (0.0-0.4) X10*3/uL Baso # (Auto) (0.0-0.2) X10*3/uL Abs Immat Gran (auto) (0.00-0.03) X10*3/uL Absolute Neuts (auto) (2.0-8.3) x10*3/uL Absolute Nucleated RBC (0.0-0.012) X10*3/uL Nucleated RBC % (auto) (0.0-0.2) /100WBC Sodium (135-145) mmol/L Potassium (3.3-5.1) mmol/L Chloride (96-108) mmol/L Carbon Dioxide (22-29) mmol/L Anion Gap (12-20) BUN (9-16) mg/dL Creatinine (0.5-1.4) mg/dL Estim Creat Clear Calc Estimated GFR Random Glucose (60-115) mg/dL Lactic Acid (0.5-2.0) mmol/L Lactic Acid F/U @ 2Hr (0.5-2.0) mmol/L Calcium (8.4-10.2) mg/dL Total Bilirubin (0.0-1.0) mg/dL Direct Bilirubin (0.0-0.5) mg/dL AST (5-37) U/L ALT (0-40) U/L Alkaline Phosphatase (39-117) U/L Ammonia (13-55) umol/L Total Protein (6.5-8.0) g/dL Albumin (3.5-5.0) g/dL Lipase (8-78) U/L Urine Color Dark Yellow Urine Appearance Clear Urine pH 5.5 (5.0-9.0) Ur Specific [place] 1.020 (1.005-1.025) Urine Protein Trace (Neg-Trace) mg/dL Urine Glucose (UA) Negative (Negative) mg/dL Urine Ketones Trace (Negative) mg/dL Urine Blood Moderate (2+) H (Negative) Urine Nitrite Negative (Negative) Ur Leukocyte Esterase Trace H (Negative) Urine RBC >20 H (0-2) /HPF Urine WBC 6-10 H (0-5) /HPF Ur Squamous Epith Cells 3-5 (0-2) /HPF Urine Bacteria None Seen (None Seen) Hyaline Casts 6-10 (0-2) /LPF Ethyl Alcohol mg/dL External Record Review External record reviewed: Inpatient record Chronic Conditions Liver cirrhosis likely secondary to ETOH abuse Medications Administered Discontinued Medications Generic Name Dose Route Start Last Admin Trade Name Freq PRN Reason Stop Dose Admin Sodium Chloride 1,000 mls @ 999 mls/hr 05/20/22 16:45 05/20/22 21:06 Ns IV 05/20/22 17:45 Infused .Q1H1M LEO Infusion Albumin Human 50 mls @ 100 mls/hr 05/20/22 16:32 05/20/22 21:05 Kedbumin 25 % IV 05/20/22 17:01 Infused ONCE ONE Infusion Piperacillin Sod/Tazobactam 100 mls @ 200 mls/hr 05/20/22 16:54 05/20/22 21:06 Sod 4.5 gm/ Sodium Chloride IV 05/20/22 17:23 Infused ONCE ONE Infusion Vancomycin HCl 1,500 mg/ 500 mls @ 333.333 mls/hr 05/20/22 17:15 05/20/22 19:41 Sodium Chloride IV 05/20/22 18:44 333.33 mls/hr ONCE ONE Administration Sodium Chloride 2,400 mls @ 2,400 mls/hr 05/20/22 18:30 05/20/22 19:14 Ns 30 ml/kg infuse over 1 hr (2400 ml) 05/20/22 19:29 2,400 mls/hr IV Administration .Q1H STA Critical Care Time Critical Care Time Critical Care Time: Yes Total Critical Care Time: 40 Attestation: I have personally provided 40 minutes of critical care time exclusive of time spent on separately billable procedures. Time includes review of lab data, radiology results, discussion with consultants, and monitoring for potential decompensation. Interventions were performed as documented above Discharge Plan Discharge Clinical Impression: Non-compliant patient, Ascites, Alcoholic cirrhosis Patient Disposition: Admitted As Inpatient Prescriptions: No Action folic acid 1 mg tablet 1 mg PO DAILY Qty: 90 2RF lactulose 10 gram/15 mL solution 30 ml PO BID Qty: 473 1RF thiamine HCl (vitamin B1) 100 mg tablet 100 mg PO DAILY Qty: 90 2RF sodium chloride 1,000 mg tablet,soluble 1,000 mg PO DAILY Qty: 30 0RF insulin lispro 100 unit/mL Insulin Pen 0 sliding scale dose SUBCUT TIDAC Protocol: Insulin Correction Scale Less than or equal to 110 ---- Give (units): 0 111 to 150 Give (units): 0 151 to 200 Give (units): 2 201 to 250 Give (units): 4 251 to 300 Give (units): 6 301 to 350 Give (units): 8 Greater than 350 Give (units): 10 Call MD if Blood Glucose > : 350 Xifaxan 550 mg Tablet 550 mg PO BID Qty: 60 0RF furosemide 20 mg Tablet 20 mg PO DAILY Qty: 30 0RF Protocol: Hold for SBP< HOLD for SBP < : 90 clotrimazole [Lotrimin AF (clotrimazole)] 1 % cream 1 appl topical BID 56 Days Qty: 45 3RF metformin 1,000 mg tablet 1 tab PO BIDAC omeprazole 20 mg capsule,delayed release(DR/EC) 20 mg PO DAILY@0630 acetaminophen 325 mg Tablet 650 mg PO Q6H PRN (Reason: Pain) calamine phenolated [Calamine Phenol] Lotion 1 appl TOPICAL QID PRN (Reason: Rash) melatonin 3 mg Tablet 6 mg PO BEDTIME
[2022-05-20 17:54] LABS: MANUAL DIFF FLAG NO
[2022-05-20 17:55] LABS: Basophils Absolute Auto 0.1 X10*3/uL (0.0-0.2); Basophils Percent Auto 1.1 % (0-2); Eosinophils Absolute Auto 0.2 X10*3/uL (0.0-0.4); Eosinophils Percent Auto 1.9 % (0-4); Hematocrit 29.4 % (42.0-52.0); Hemoglobin 9.9 g/dl (14.0-18.0); Imm Gran Abs Auto 0.03 X10*3/uL (0.00-0.03); Imm Gran Pct Auto 0.3 % (0.0-0.4); Lymphocytes Absolute Auto 0.9 X10*3/uL (1.2-4.9); Lymphocytes Percent Auto 10.4 % (20-40); Mean Corpuscular HGB Conc 33.7 g/dl (31.0-36.0); Mean Corpuscular Hemoglobin 34.6 pg (27.0-33.0); Mean Corpuscular Volume 102.8 fL (80.0-98.0); Mean Platelet Volume 9.8 fL (9.4-12.4); Monocytes Absolute Auto 0.7 X10*3/uL (0.1-1.2); Monocytes Percent Auto 8.4 % (2-11); Neutrophils Absolute Auto 6.9 x10*3/uL (2.0-8.3); Neutrophils Percent Auto 77.9 % (45-73); Platelet Count 119 X10*3/uL (160-400); Red Blood Count 2.86 X10*6/uL (4.60-5.80); Red Cell Distribution Width 16.1 % (11.0-16.0); White Blood Count 8.8 X10*3/uL (4.8-10.8)
--- NOTE | 2022-05-20 17:56 | PHA.MEDREC ---
Pharmacy Consult ? Medication Reconciliation Pharmacy has completed the medication reconciliation. Spoke with patient spouse who listed off all medications. Patient last took medications this morning. Looks like patient is supposed to be on spironolactone but has not filled at pharmacy or been taking it .
[2022-05-20 18:00] VITALS: BP 100/55; PULSE 93; RESP 16; TEMP 36.4; O2SAT 100
[2022-05-20 18:19] LABS: Alanine Aminotransferase 16 U/L (0-40); Albumin Level 2.3 g/dL (3.5-5.0); Alkaline Phosphatase 145 U/L (39-117); Anion Gap 18 (12-20); Aspartate Amino Transferase 33 U/L (5-37); Bilirubin Direct 0.8 mg/dL (0.0-0.5); Bilirubin Total 2.3 mg/dL (0.0-1.0); Blood Urea Nitrogen 38 mg/dL (9-16); Calcium 8.4 mg/dL (8.4-10.2); Carbon Dioxide 15 mmol/L (22-29); Chloride 104 mmol/L (96-108); Creatinine Clr Calc Pharmacy 51.5; Estimated Glomerular Filt Rate 45; Glucose Random 119 mg/dL (60-115); Lipase 23 U/L (8-78); Potassium 5.7 mmol/L (3.3-5.1); Sodium 131 mmol/L (135-145)
[2022-05-20] MEDS: Piperacillin Sodium/Tazobactam 4.5 GM in 0.9 % Sodium Chloride 100 ML IV (18:28)
[2022-05-20] MEDS: 0.9 % Sodium Chloride 1,000 ML 999 ML IV (18:28)
[2022-05-20 18:30] LABS: Lactic Acid 4.2 mmol/L (0.5-2.0)
[2022-05-20] MEDS: Albumin Human 25 % 50 ML 100 ML IV (19:15)
[2022-05-20] MEDS: vancomycin HCL 1,500 MG in 0.9 % Sodium Chloride 500 ML 333.33 MG IV (19:41)
[2022-05-20 19:51] LABS: Reflex Lactate? Lactic Acid Added
[2022-05-20 19:54] VITALS: BP 111/91; PULSE 81; RESP 16; TEMP 36.3; O2SAT 100
--- NOTE | 2022-05-20 19:55 | MHC.EDTECH ---
1999 rounding done ,vitals sign taken ,pt was clean up and reposition off his bottom ,pt have several open areas on his right side hip and thigh thats jayme villa is aware .
--- NOTE | 2022-05-20 20:53 | MHC.EDTECH ---
PT BLOOD DRAWN AND SENT TO LAB .
[2022-05-20 21:05] VITALS: BP 96/53; PULSE 100; RESP 16; TEMP 36.1; O2SAT 98
--- NOTE | 2022-05-20 21:07 | P.HPHOSP_ITS ---
History of Present Illness Date of Service: 05/20/22 Chief Complaint: Abdomen swelling This is a 56-year-old male with pertinent history of alcoholic cirrhosis, kqo-lleeeai-rpcrayxba diabetes mellitus, alcohol use disorder who presents to the emergency department for evaluation of abdominal swelling. Patient states he is compliant with his medications but unable to elaborate. He was recently admitted and discharged about a month ago for decompensated alcoholic cirrhosis and underwent paracentesis. Patient also endorses of right hip rash which is tender, red. He does not know when it started. He denies fever, chills, chest discomfort, palpitations, shortness of breath, changes in urinary or bowel habit s. Endorses abdominal discomfort. In the emergency department, imaging with significant ascites. Review of Systems Constitutional: Constitutional: Reports lethargy and Reports malaise Cardiovascular: Cardiovascular: Reports no additional cardiovascular complaints Respiratory: Respiratory: Reports no additional respiratory complaints Gastrointestinal: Gastrointestinal: Reports bloating and Reports GI cramping Genitourinary: Genitourinary: Reports no additional male genitourinary complaints [facility] Medical History SAUL (acute kidney injury) SAUL (acute kidney injury) Alcohol abuse Alcoholic cirrhosis Ascites Diabetes Elevated liver enzymes Hypertension Hyponatremia Liver cirrhosis Pressure ulcer Withdrawal seizures Family History Other No family history of coronary artery disease Surgical History No pertinent past surgical history Social History Household Members: Significant Other Housing: House Do you presently have visiting nurse or other home services: Yes Unable to assess alcohol history related to: Refusing to respond Alcohol intake: current Alcohol intake frequency: does not drink Alcohol type: beer and hard liquor Patient Tobacco Use Status: Never used Tobacco Tobacco use type: Smokeless Tobacco Second Hand Smoke Exposure: No Advance Directives: Yes Advance Directives Information Provided: No Advance Directives on File: No Advance Directives Date on File: 03/18/22 service: Yes Current occupational status: unemployed Meds Allergies Allergy/AdvReac Type Severity Reaction Status Date / Time acetaminophen [From PERCOCET] Allergy Severe AGITATION Verified 05/12/22 15:32 oxycodone [From PERCOCET] Allergy Severe AGITATION Verified 05/12/22 15:32 bee pollen [Bee Stings] Allergy Mild SWELLING Verified 05/12/22 15:32 lorazepam AdvReac Unknown AGITATION Verified 05/12/22 15:32 Active Medications: Current Medications Pharmacy Consult (Consult Rx Perform Med Rec) 1 each MISCELLANE ONCE PRN PRN Reason: Consult order Home Medications Medication Instructions Recorded Confirmed Last Taken Type insulin lispro 100 unit/mL 0 sliding scale dose subcut TIDAC 04/03/22 05/20/22 04/03/22 History subcutaneous pen acetaminophen 325 mg tablet 650 mg PO Q6H PRN Pain 05/20/22 05/20/22 Unknown History calamine phenolated lotion 1 appl topical QID PRN Rash 05/20/22 05/20/22 Unknown History melatonin 3 mg tablet 6 mg PO BEDTIME 05/20/22 05/20/22 05/19/22 History metformin 1,000 mg tablet 1 tab PO BIDAC 05/20/22 05/20/22 05/20/22 History omeprazole 20 mg capsule,delayed 20 mg PO DAILY@0630 05/20/22 05/20/22 05/20/22 History release Physical Exam Vital Signs and Narrative: Vital Signs: Last Vital Signs Temp 97.4 F 05/20/22 19:54 Pulse 81 05/20/22 19:54 Resp 16 05/20/22 19:54 BP 111/91 H 05/20/22 19:54 Pulse Ox 100 05/20/22 19:54 O2 Del Method 05/20/22 19:54 BMI result Body Mass Index 28.4 Middle-aged male lying in bed in no distress Neck supple, no JVD Regular rate and rhythm, S1-S2 heard Regular breath sounds bilaterally, no wheezing or crackles appreciated Abdomen with significant distension, nontender, no guarding, no rigidity Patient is awake, alert and oriented to self, place, time and person ; no focal motor deficit Right thigh with erythema, tenderness Psych: Normal mood No pedal edema Results Labs 05/20/22 17:46 05/20/22 17:46 Labs: Laboratory Results - last 24 hr 05/20/22 05/20/22 05/20/22 17:46 17:46 17:46 MCV 102.8 H MCH 34.6 H MCHC 33.7 RDW 16.1 H Plt Count 119 L D MPV 9.8 Immature Gran % (Auto) 0.3 Neut % (Auto) 77.9 H Lymph % (Auto) 10.4 L [place] % (Auto) 8.4 Eos % (Auto) 1.9 Baso % (Auto) 1.1 Lymph # (Auto) 0.9 L [place] # (Auto) 0.7 Eos # (Auto) 0.2 Baso # (Auto) 0.1 Abs Immat Gran (auto) 0.03 Absolute Neuts (auto) 6.9 Absolute Nucleated RBC 0.000 Nucleated RBC % (auto) 0.0 Anion Gap 18 Estim Creat Clear Calc 51.5 Estimated GFR 45 Random Glucose 119 H Lactic Acid 4.2 H* Calcium 8.4 Total Bilirubin 2.3 H Direct Bilirubin 0.8 H AST 33 ALT 16 Alkaline Phosphatase 145 H Total Protein 6.0 L Albumin 2.3 L Lipase 23 Imaging Radiologist's Impressions: Impressions Chest X-Ray 05/20/22 16:42 IMPRESSION: No acute cardiopulmonary process. Abdomen/Pelvis CT 05/20/22 17:15 IMPRESSION: Marked ascites throughout the abdomen pelvis increasing from previous exam Small right lower lobe effusion with adjacent atelectasis or infiltrate. Once again small liver with coarse contour consistent with cirrhosis. If an underlying lesion needs to be excluded pre and postcontrast MR is recommended. 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 Densities behind the nipple right and left breast could represent gynecomastia. Correlate with ultrasound and mammogram Assessment and Plan (1) Alcoholic cirrhosis: Status: Acute Plan This is a 56-year-old male with pertinent history of alcoholic cirrhosis, dja-xaymxya-zwffyohjb diabetes mellitus, alcohol use disorder who presents to the emergency department for evaluation of abdominal swelling. #. Acute decompensated hepatic cirrhosis with ascites and hepatic ence phalopathy: Unknown compliance with medications. Ordered IR guided paracentesis. Ascitic fluid labs pending. Given antibiotics empirically for possible SBP. Continue lactulose and rifaximin. UA pending #. Left thigh cellulitis: Initiating vancomycin. Blood cultures pending #. Lactic acidosis: Chronic due to liver disease and not due to sepsis #. Any-qrakgqz-opjunaipe diabetes mellitus: Initiating Accu-Cheks with sliding scale insulin #. Alcohol use disorder: Continue thiamine and folic acid. Monitor CIWA #. Thrombocytopenia due to alcohol use disorder #. Macrocytic anemia due to alcoholism. Continue folic acid #. Acute kidney injury, stage I nonoliguric: Monitor with fluid resuscitation. Avoid nephrotoxins #. Hyperkalemia due to above #. Hyponatremia due to cirrhosis Med rec pending Diet: Low-sodium diet Full code DVT prophylaxis: Lovenox 40 mg daily Admit as inpatient and will require two night minimum hospital stay for decompensated cirrhosis Time Spent With Patient Time: Total time managing care of this patient today ____ minutes. Quality Stroke Does the patient have a stroke diagnosis?: No VTE Prior VTE?: No VTE Risk Level:: Medical - moderate - high VTE Device Contraindication: Treatment Not Indicated VTE Drug Contraindication: N/A - Med Ordered
[2022-05-20 21:13] LABS: Ammonia 112 umol/L (13-55)
[2022-05-20 21:19] LABS: Appearance Urine Clear; Color Urine Dark Yellow; Glucose Urine UA Negative (Negative); Leukocyte Esterase Urine Trace (Negative); Nitrite Urine Negative (Negative); PH 5.5 (5.0-9.0); UMIC TRIGGER UACC YES; Urine Blood Moderate (2+) (Negative); Urine Ketones Trace mg/dL (Negative); Urine Protein Trace mg/dL (Neg-Trace)
[2022-05-20 21:21] LABS: Ethanol < 10 mg/dL
[2022-05-20 21:26] LABS: Bacteria Urine None Seen (None Seen); RBC Urine >20 /HPF (0-2); UACC Culture Trigger YES
[2022-05-20 21:35] LABS: Influenza A PCR NEGATIVE (Negative); Influenza B PCR NEGATIVE (Negative); Resp Syncy Virus RNA Qual PCR NEGATIVE (Negative); SARS COV2 PCR INHOUSE NEGATIVE (Negative)
[2022-05-20] MEDS: cefTRIAXone sodium 2 GM in 0.9 % Sodium Chloride 50 ML IV (22:12)
[2022-05-20] MEDS: Enoxaparin Sodium 40 MG/0.4 ML SYRINGE SUBCUT (22:15)
[2022-05-20] MEDS: Thiamine HCL 100 MG in 0.9 % Sodium Chloride 100 ML 202 MG IV (22:20)
[2022-05-20 22:57] LABS: Reflex Lactate? 2 Y
--- NOTE | 2022-05-20 23:57 | PC.NURSE ---
Assumed care of pt. at 2300. Pt. lying in bed on his right side. Pt. able to reposition himself in bed. Labs were drawn. IV fluids are finishing at this time. Pt. is scheduled for a paracentesis tomorrow. Pt. had refused the lactulose earlier and that was charted against. Pt. provided with warm blankets as he states he is cold.
[2022-05-21] VITALS (16 sets, daily range): BP systolic 90–134; BP diastolic 45–82; PULSE 100–113; RESP 16–20; TEMP 36.7–37; O2SAT 96–100
--- NOTE | 2022-05-21 | PC.NURSE ---
Pt. noted to have a prolonged bleed time from a lab draw. Hospitalist notified to see if any additional labs were required or if any additional treatments needed. aware and doesn't request additional labs at this time.
[2022-05-21 01:02] LABS: ~Lactic Acid-LAB USE ONLY 4.5 mmol/L (0.5-2.0)
--- NOTE | 2022-05-21 01:05 | PC.NURSE ---
Lab called with critical lab value, lactic acid is 4.5. Notified hospitalist.
--- NOTE | 2022-05-21 01:06 | PC.NURSE ---
took call from Pavel from lab with critical results- lactic acid 4.5 provider and LIGIA Montenegro notified
--- NOTE | 2022-05-21 04:37 | MHC.EDTECH ---
pt was repositioned with assistance, facing the cart now, he was also cleaned up he had a med BM, a ham sandwich and juice was given also, vitals were taken he is now resting
[2022-05-21 07:05] LABS: Glucose, Whole Blood 126 mg/dL (60-115)
[2022-05-21 07:47] LABS: Basophils Absolute Auto 0.1 X10*3/uL (0.0-0.2); Eosinophils Absolute Auto 0.3 X10*3/uL (0.0-0.4); Eosinophils Percent Auto 2.8 % (0-4); Hematocrit 26.5 % (42.0-52.0); Hemoglobin 8.9 g/dl (14.0-18.0); Imm Gran Abs Auto 0.03 X10*3/uL (0.00-0.03); Imm Gran Pct Auto 0.3 % (0.0-0.4); Lymphocytes Absolute Auto 0.9 X10*3/uL (1.2-4.9); Lymphocytes Percent Auto 8.8 % (20-40); Mean Corpuscular HGB Conc 33.6 g/dl (31.0-36.0); Mean Corpuscular Volume 101.1 fL (80.0-98.0); Mean Platelet Volume 9.3 fL (9.4-12.4); Monocytes Percent Auto 9.8 % (2-11); Neutrophils Absolute Auto 7.7 x10*3/uL (2.0-8.3); Neutrophils Percent Auto 77.3 % (45-73); Platelet Count 105 X10*3/uL (160-400); Red Blood Count 2.62 X10*6/uL (4.60-5.80); Red Cell Distribution Width 16.4 % (11.0-16.0)
[2022-05-21 08:01] LABS: Alanine Aminotransferase 15 U/L (0-40); Albumin Level 2.5 g/dL (3.5-5.0); Alkaline Phosphatase 127 U/L (39-117); Anion Gap 17 (12-20); Aspartate Amino Transferase 27 U/L (5-37); Bilirubin Total 2.6 mg/dL (0.0-1.0); Blood Urea Nitrogen 38 mg/dL (9-16); Calcium 8.2 mg/dL (8.4-10.2); Carbon Dioxide 16 mmol/L (22-29); Chloride 106 mmol/L (96-108); Estimated Glomerular Filt Rate 49; Glucose Random 113 mg/dL (60-115); Potassium 5.5 mmol/L (3.3-5.1); Sodium 133 mmol/L (135-145)
[2022-05-21 08:32] LABS: MANUAL DIFF FLAG NO
[2022-05-21 09:02] LABS: Magnesium 1.6 mg/dL (1.6-2.6)
--- NOTE | 2022-05-21 09:10 | MHC.CM.PN ---
Patient lives in a house with his S.O./HCP/Deann and a Friend and he uses a w/c to assist with mobility. Apparently [facility] just recently stopped services and the hope is that services will be restarted. CM has initiated and will follow for dc planning. Patient has received Moderna/Covid vax x4 and the PCP is Maren Carvajal.
--- NOTE | 2022-05-21 09:30 | PC.NURSE ---
pt alert and oriented, skin jaundice with abd severely distended/firm and tender to touch, respirations even and unlabored, pt's entire right sided is eroded from the pt laying constantly on that sided at home-pt is bed ridded according to him. pt denies pain, vs stable.
--- NOTE | 2022-05-21 09:30 | MHC.CM.PN ---
Per [facility], Patient was recently active with [facility], not [facility]; a referral has now been made to [facility] and CM will follow.
[2022-05-21] MEDS: Sodium Zirconium Cyclosilicate 10 GM POWD.PACK PO (09:34)
[2022-05-21] MEDS: Furosemide 20 MG TABLET PO (09:34)
[2022-05-21] MEDS: Folic Acid 1 MG TABLET PO (09:35)
[2022-05-21] MEDS: Thiamine HCL 100 MG TABLET PO (09:35)
[2022-05-21] MEDS: Thiamine HCL 100 MG in 0.9 % Sodium Chloride 100 ML 202 MG IV (09:37)
[2022-05-21] MEDS: cefTRIAXone sodium 1 GM in 0.9 % Sodium Chloride 50 ML IV (09:37)
[2022-05-21] MEDS: Lactulose 20 GM/30 ML SOLUTION PO ×4 (09:53→21:36)
[2022-05-21] MEDS: 0.9 % Sodium Chloride Flush 3 ML SYRINGE IVFLUSH ×2 (09:54→17:25)
[2022-05-21] MEDS: rifAXIMin 550 MG TABLET PO ×2 (10:26→21:35)
--- NOTE | 2022-05-21 11:40 | PC.NURSE ---
paracentesis being performed at this time by radiology
[2022-05-21] MEDS: Albumin Human 25 % 100 ML IV ×2 (12:12→14:28)
--- NOTE | 2022-05-21 12:33 | HO.PM.IMPN ---
Subjective Subjective Date of Service: 05/21/22 Interval History: c/o generalized body swelling no EtOH x 3 yr no melean or hematochezia Review of Systems Review of Systems: Yes all other systems are reviewed and are negative Physical Exam Vital Signs: Vital Signs: Last Vital Signs Temp 98.6 F 05/21/22 03:13 Pulse 105 H 05/21/22 12:20 Resp 20 05/21/22 10:02 BP 126/75 05/21/22 12:20 Pulse Ox 99 05/21/22 12:20 O2 Del Method 05/21/22 12:20 BMI result Body Mass Index 28.4 Gen: in no acute distress HEENT: sclera anicteric, moist mucus membranes Neck: supple Lungs: clear to auscultation bilaterally Heart: regular rate and rhythm, no murmurs Abd: massively distended with fluid wave Ext: 1+ leg edema Skin: warm/well-perfused, erythema with excoriations on RLQ and R flank Neuro: alert and oriented x3, no asterixis noted Psych: appropriate affect Objective Data Active Medications Acetaminophen (Acetaminophen 325 Mg Tablet) 650 mg PO Q6H PRN PRN Reason: Pain, Mild (Pain Scale 1-3) Dextrose (Dextrose 50 % 25 Gm/50 Ml Syringe) 25 gm IVPUSH Q15M PRN; Protocol PRN Reason: per Hypoglycemia Standing Ord. Dextrose (Dextrose 50 % 25 Gm/50 Ml Syringe) 25 gm IVPUSH Q15M PRN; Protocol PRN Reason: per Hypoglycemia Standing Ord. Enoxaparin Sodium (Enoxaparin Sodium 40 Mg/0.4 Ml Syringe) 40 mg SUBCUT Q24H [facility] Last Admin: 05/20/22 22:15 Dose: 40 mg Documented By: LUISA Folic Acid (Folic Acid 1 Mg Tablet) 1 mg PO DAILY [facility] Last Admin: 05/21/22 09:35 Dose: 1 mg Documented By: RICHARD Furosemide (Furosemide 20 Mg Tablet) 20 mg PO DAILY [facility]; Protocol Last Admin: 05/21/22 09:34 Dose: 20 mg Documented By: RICHARD Glucose (Glucose Gel 15 Gm Gel..Gram.) 15 gm PO Q15M PRN; Protocol PRN Reason: per Hypoglycemia Standing Ord. Glucose (Glucose Gel 15 Gm Gel..Gram.) 15 gm PO Q15M PRN; Protocol PRN Reason: per Hypoglycemia Standing Ord. Thiamine HCl 100 mg/ Sodium (Chloride) 101 mls @ 202 mls/hr IV DAILY [facility] Last Infusion: 05/21/22 10:40 Dose: 0 mls/hr Documented By: RICHARD Vancomycin HCl 1,250 mg/ (Sodium Chloride) 250 mls @ 166.667 mls/hr IV Q24H [facility] Ceftriaxone Sodium 1 gm/ (Sodium Chloride) 50 mls @ 100 mls/hr IV Q24H [facility] Last Infusion: 05/21/22 10:10 Dose: 0 mls/hr Documented By: RICHARD Insulin Human Lispro (Insulin Lispro 100 Unit/Ml 3 Ml Vial) 0 unit SUBCUT QIDACHS [facility]; Protocol Last Admin: 05/21/22 08:01 Dose: Not Given Documented By: RICHARD Non-Admin Reason: poc 126 Insulin Human Lispro (Insulin Lispro 100 Unit/Ml 3 Ml Vial) 0 unit SUBCUT QIDACHS [facility]; Protocol Lactulose (Lactulose 20 Gm/30 Ml Solution) 20 gm PO QID [facility] Last Admin: 05/21/22 11:07 Dose: Not Given Documented By: RICHARD Non-Admin Reason: Duplicate Order Lactulose (Lactulose 20 Gm/30 Ml Solution) 20 gm PO BID [facility] Last Admin: 05/21/22 09:53 Dose: 20 gm Documented By: RICHARD Melatonin (Melatonin 3 Mg Tablet) 6 mg PO BEDTIME PRN PRN Reason: Insomnia Melatonin (Melatonin 3 Mg Tablet) 6 mg PO BEDTIME [facility] Ondansetron HCl (Ondansetron Hcl 4 Mg/2 Ml Vial) 4 mg IVPUSH Q8H PRN PRN Reason: Nausea and Vomiting Pharmacy Consult (Consult Rx Perform Med Rec) 1 each MISCELLANE ONCE PRN PRN Reason: Consult order Pharmacy Consult (Consult Rx Vancomycin Dosing) 1 each MISCELLANE DAILY PRN PRN Reason: Consult order Rifaximin (Rifaximin 550 Mg Tablet) 550 mg PO BID [facility] Last Admin: 05/21/22 10:26 Dose: 550 mg Documented By: WALTER Sodium Chloride (0.9 % Sodium Chloride Flush 3 Ml Syringe) 3 ml IVFLUSH QSHIFT [facility] Last Admin: 05/21/22 09:54 Dose: 3 ml Documented By: RICHARD Thiamine HCl (Thiamine Hcl 100 Mg Tablet) 100 mg PO DAILY [facility] Last Admin: 05/21/22 09:35 Dose: 100 mg Documented By: RICHARD Labs 05/21/22 07:40 05/21/22 07:40 Labs: Laboratory Results - last 24 hr 05/20/22 05/20/22 05/20/22 17:46 17:46 17:46 MCV 102.8 H MCH 34.6 H MCHC 33.7 RDW 16.1 H Plt Count 119 L D MPV 9.8 Immature Gran % (Auto) 0.3 Neut % (Auto) 77.9 H Lymph % (Auto) 10.4 L [place] % (Auto) 8.4 Eos % (Auto) 1.9 Baso % (Auto) 1.1 Lymph # (Auto) 0.9 L [place] # (Auto) 0.7 Eos # (Auto) 0.2 Baso # (Auto) 0.1 Abs Immat Gran (auto) 0.03 Absolute Neuts (auto) 6.9 Absolute Nucleated RBC 0.000 Nucleated RBC % (auto) 0.0 Anion Gap 18 Estim Creat Clear Calc 51.5 Estimated GFR 45 POC Glucose Random Glucose 119 H Lactic Acid 4.2 H* Lactic Acid F/U @ 2Hr Lactic Acid F/U @ 4Hr Calcium 8.4 Magnesium Total Bilirubin 2.3 H Direct Bilirubin 0.8 H AST 33 ALT 16 Alkaline Phosphatase 145 H Ammonia Total Protein 6.0 L Albumin 2.3 L Lipase 23 Urine Color Urine Appearance Urine pH Ur Specific [place] Urine Protein Urine Glucose (UA) Urine Ketones Urine Blood Urine Nitrite Ur Leukocyte Esterase Urine RBC Urine WBC Ur Squamous Epith Cells Urine Bacteria Hyaline Casts Ethyl Alcohol Influenza Type A (PCR) Influenza Type B (PCR) RSV RNA Qual (PCR) SARS-CoV-2 RNA (RT-PCR) 05/20/22 05/20/22 05/20/22 20:51 20:51 20:51 MCV MCH MCHC RDW Plt Count MPV Immature Gran % (Auto) Neut % (Auto) Lymph % (Auto) [place] % (Auto) Eos % (Auto) Baso % (Auto) Lymph # (Auto) [place] # (Auto) Eos # (Auto) Baso # (Auto) Abs Immat Gran (auto) Absolute Neuts (auto) Absolute Nucleated RBC Nucleated RBC % (auto) Anion Gap Estim Creat Clear Calc Estimated GFR POC Glucose Random Glucose Lactic Acid Lactic Acid F/U @ 2Hr Lactic Acid F/U @ 4Hr Calcium Magnesium Total Bilirubin Direct Bilirubin AST ALT Alkaline Phosphatase Ammonia 112 H Total Protein Albumin Lipase Urine Color Urine Appearance Urine pH Ur Specific [place] Urine Protein Urine Glucose (UA) Urine Ketones Urine Blood Urine Nitrite Ur Leukocyte Esterase Urine RBC Urine WBC Ur Squamous Epith Cells Urine Bacteria Hyaline Casts Ethyl Alcohol < 10 Influenza Type A (PCR) NEGATIVE Influenza Type B (PCR) NEGATIVE RSV RNA Qual (PCR) NEGATIVE SARS-CoV-2 RNA (RT-PCR) NEGATIVE 05/20/22 05/20/22 05/20/22 20:51 21:12 23:38 MCV MCH MCHC RDW Plt Count MPV Immature Gran % (Auto) Neut % (Auto) Lymph % (Auto) [place] % (Auto) Eos % (Auto) Baso % (Auto) Lymph # (Auto) [place] # (Auto) Eos # (Auto) Baso # (Auto) Abs Immat Gran (auto) Absolute Neuts (auto) Absolute Nucleated RBC Nucleated RBC % (auto) Anion Gap Estim Creat Clear Calc Estimated GFR POC Glucose Random Glucose Lactic Acid Lactic Acid F/U @ 2Hr 5.0 H* Lactic Acid F/U @ 4Hr 4.5 H* Calcium Magnesium Total Bilirubin Direct Bilirubin AST ALT Alkaline Phosphatase Ammonia Total Protein Albumin Lipase Urine Color Dark Yellow Urine Appearance Clear Urine pH 5.5 Ur Specific [place] 1.020 Urine Protein Trace Urine Glucose (UA) Negative Urine Ketones Trace Urine Blood Moderate (2+) H Urine Nitrite Negative Ur Leukocyte Esterase Trace H Urine RBC >20 H Urine WBC 6-10 H Ur Squamous Epith Cells 3-5 Urine Bacteria None Seen Hyaline Casts 6-10 Ethyl Alcohol Influenza Type A (PCR) Influenza Type B (PCR) RSV RNA Qual (PCR) SARS-CoV-2 RNA (RT-PCR) 05/21/22 05/21/22 05/21/22 06:52 07:40 07:40 MCV 101.1 H MCH 34.0 H MCHC 33.6 RDW 16.4 H Plt Count 105 L MPV 9.3 L Immature Gran % (Auto) 0.3 Neut % (Auto) 77.3 H Lymph % (Auto) 8.8 L [place] % (Auto) 9.8 Eos % (Auto) 2.8 Baso % (Auto) 1.0 Lymph # (Auto) 0.9 L [place] # (Auto) 1.0 Eos # (Auto) 0.3 Baso # (Auto) 0.1 Abs Immat Gran (auto) 0.03 Absolute Neuts (auto) 7.7 Absolute Nucleated RBC 0.000 Nucleated RBC % (auto) 0.0 Anion Gap 17 Estim Creat Clear Calc 56.0 Estimated GFR 49 POC Glucose 126 H Random Glucose 113 Lactic Acid Lactic Acid F/U @ 2Hr Lactic Acid F/U @ 4Hr Calcium 8.2 L Magnesium 1.6 Total Bilirubin 2.6 H Direct Bilirubin AST 27 ALT 15 Alkaline Phosphatase 127 H Ammonia Total Protein 6.0 L Albumin 2.5 L Lipase Urine Color Urine Appearance Urine pH Ur Specific [place] Urine Protein Urine Glucose (UA) Urine Ketones Urine Blood Urine Nitrite Ur Leukocyte Esterase Urine RBC Urine WBC Ur Squamous Epith Cells Urine Bacteria Hyaline Casts Ethyl Alcohol Influenza Type A (PCR) Influenza Type B (PCR) RSV RNA Qual (PCR) SARS-CoV-2 RNA (RT-PCR) Microbiology Microbiology Results: Microbiology 05/20/22 21:27 Urine Culture - Preliminary Urine Catheterized - Ríos Catheter No growth to date. Assessment and Plan (1) End stage liver disease: Status: Acute Plan hospital d#2 56-year-old male with?EtOH cirrhosis, ascites, alcohol use disorder, and [id number] DM who presented to the ED with massive ascites and abdominal wall cellulitis # ascites - paracentesis today, will give albumin with paracentesis, ceftriaxone IV empirically 3/2- pending SBP rule out # nonpurulent cellulitis of abdominal wall - vancomycin 3/2-. folow BCx # SAUL - giving albumin as above, monitor for hepatorenal syndrome, hold furosemide for now # hyperK - give SZC, recheck BMP in AM # hepatic encephalopathy - rifaximin + lactulose # lactic acidosis - chronic, due to liver disease and not due to sepsis # thrombocytopenia # macrocytic anemia - chronic, due to cirrhosis # DM2 - correction-dose lispro # AUD, history - continue thiamine + folate # DM2 - correction-dose lispro # VTE ppx: LMWH # dispo: TBD In my clinical judgment, the patient requires continued inpatient hospitalization for the following reasons: IV ABX, paracentesis, r/o SBP Time Spent With Patient Time: Total time managing care of this patient today __45__ minutes. Quality Stroke Does the patient have a stroke diagnosis?: No VTE Prior VTE?: No VTE Risk Level:: Medical - moderate - high VTE Device Contraindication: Treatment Not Indicated VTE Drug Contraindication: N/A - Med Ordered
[2022-05-21 12:36] LABS: MN% 81.4 %; PMN% 18.6 %; WBC Peritoneal Fluid 0.081 X10*3/uL
[2022-05-21 12:37] LABS: RBC Peritoneal Fluid < 0.002 X10*6/uL
[2022-05-21] MEDS: Lidocaine HCl 1 % MPF 5 ML VIAL SUBCUT (12:45)
--- NOTE | 2022-05-21 12:46 | PC.NURSE ---
lizzeth from IR got 10 paracentesis jugs, pt tolerating the procedure well
[2022-05-21 12:55] LABS: Glucose, Whole Blood 147 mg/dL (60-115)
[2022-05-21 14:20] LABS: Lymphocyte Peritoneal Fl 20 %; Monocytes Peritoneal Fl 10 %; Neutrophils Peritoneal Fluid 17 %; Other Peritioneal Fl 53 %
[2022-05-21 14:21] LABS: BF Shift QC OK YES
[2022-05-21 15:26] LABS: LDH Peritoneal Fluid 28 U/L; Total Protein Peritoneal Fluid 0.9 GM/DL
--- NOTE | 2022-05-21 16:00 | MHC.EDTECH ---
THIS PCT ASSUMED CARE OF PT AT 1500 ,ROUNDING DONE ,VITALS SIGN TAKEN ,PT WAS FED A PUDDING AND DRANK SIPS OF ISAAC CRISTOPHER .
[2022-05-21 17:22] LABS: Glucose, Whole Blood 176 mg/dL (60-115)
[2022-05-21] MEDS: Insulin Lispro 100 UNIT/ML 3 ML VIAL SUBCUT ×2 (17:25→21:34)
--- NOTE | 2022-05-21 19:09 | PC.NURSE ---
Bed available for pt to be transfered to room 378. Pt refusing to be transferred at this time and is requesting to leave and speak to the doctor. [place] text sent to Dr. Sears.
--- NOTE | 2022-05-21 19:41 | PC.NURSE ---
RN to RN report given to LIGIA Leon. Pt to be transferred to Med Surg room 478. Pt aware.
[2022-05-21 20:39] LABS: Glucose, Whole Blood 190 mg/dL (60-115)
[2022-05-21] MEDS: vancomycin HCL 1,250 MG in 0.9 % Sodium Chloride 250 ML 166.67 MG IV (21:30)
[2022-05-21] MEDS: Enoxaparin Sodium 40 MG/0.4 ML SYRINGE SUBCUT (21:32)
[2022-05-21] MEDS: Melatonin 3 MG TABLET 6 MG PO (21:35)
[2022-05-22] VITALS (8 sets, daily range): BP systolic 113–144; BP diastolic 61–75; PULSE 91–117; RESP 18–20; TEMP 35.8–36.6; O2SAT 95–100
[2022-05-22] MEDS: 0.9 % Sodium Chloride Flush 3 ML SYRINGE IVFLUSH ×3 (00:08→15:49)
[2022-05-22 07:15] LABS: INTERNATIONAL NORM RATIO 1.9 (0.9-1.1)
[2022-05-22 07:26] LABS: Hemoglobin 7.1 g/dl (14.0-18.0); Mean Corpuscular HGB Conc 34.8 g/dl (31.0-36.0); Mean Corpuscular Hemoglobin 34.6 pg (27.0-33.0); Mean Corpuscular Volume 99.5 fL (80.0-98.0); Mean Platelet Volume 9.5 fL (9.4-12.4); Red Blood Count 2.05 X10*6/uL (4.60-5.80); White Blood Count 6.5 X10*3/uL (4.8-10.8)
[2022-05-22 07:45] LABS: Glucose, Whole Blood 130 mg/dL (60-115)
--- NOTE | 2022-05-22 07:48 | HO.PM.IMPN ---
Subjective Subjective Date of Service: 05/22/22 Interval History: f/u HE, ascietes he's lucid, he wants to go home H/H is low but Physical Exam Vital Signs: Vital Signs: Last Vital Signs Temp 97.6 F 05/22/22 07:41 Pulse 114 H 05/22/22 07:41 Resp 18 05/22/22 07:41 BP 113/67 05/22/22 07:41 Pulse Ox 99 05/22/22 07:41 O2 Del Method 05/22/22 07:41 BMI result Body Mass Index 28.4 Const: Other: Gen: in no acute distress HEENT: sclera anicteric, moist mucus membranes Neck: supple Lungs: clear to auscultation bilaterally Heart: regular rate and rhythm, no murmurs Abd: massively distended with fluid wave Ext: 1+ leg edema Skin: warm/well-perfused, erythema with excoriations on RLQ and R flank Neuro: alert and oriented x3, no asterixis noted Psych: appropriate affect ? Objective Data Active Medications Acetaminophen (Acetaminophen 325 Mg Tablet) 650 mg PO Q6H PRN PRN Reason: Pain, Mild (Pain Scale 1-3) Dextrose (Dextrose 50 % 25 Gm/50 Ml Syringe) 25 gm IVPUSH Q15M PRN; Protocol PRN Reason: per Hypoglycemia Standing Ord. Dextrose (Dextrose 50 % 25 Gm/50 Ml Syringe) 25 gm IVPUSH Q15M PRN; Protocol PRN Reason: per Hypoglycemia Standing Ord. Enoxaparin Sodium (Enoxaparin Sodium 40 Mg/0.4 Ml Syringe) 40 mg SUBCUT Q24H [facility] Last Admin: 05/21/22 21:32 Dose: 40 mg Documented By: EDUARDO Folic Acid (Folic Acid 1 Mg Tablet) 1 mg PO DAILY [facility] Last Admin: 05/21/22 09:35 Dose: 1 mg Documented By: RICHARD Glucose (Glucose Gel 15 Gm Gel..Gram.) 15 gm PO Q15M PRN; Protocol PRN Reason: per Hypoglycemia Standing Ord. Glucose (Glucose Gel 15 Gm Gel..Gram.) 15 gm PO Q15M PRN; Protocol PRN Reason: per Hypoglycemia Standing Ord. Thiamine HCl 100 mg/ Sodium (Chloride) 101 mls @ 202 mls/hr IV DAILY [facility] Last Infusion: 05/21/22 10:40 Dose: 0 mls/hr Documented By: RICHARD Vancomycin HCl 1,250 mg/ (Sodium Chloride) 250 mls @ 166.667 mls/hr IV Q24H [facility] Last Infusion: 05/21/22 23:02 Dose: 0 mls/hr Documented By: EDUARDO Ceftriaxone Sodium 1 gm/ (Sodium Chloride) 50 mls @ 100 mls/hr IV Q24H [facility] Last Infusion: 05/21/22 10:10 Dose: 0 mls/hr Documented By: RICHARD Insulin Human Lispro (Insulin Lispro 100 Unit/Ml 3 Ml Vial) 0 unit SUBCUT QIDACHS [facility]; Protocol Last Admin: 05/21/22 21:34 Dose: 2 unit Documented By: EDUARDO Lactulose (Lactulose 20 Gm/30 Ml Solution) 20 gm PO QID [facility] Last Admin: 05/21/22 21:36 Dose: 20 gm Documented By: EDUARDO Melatonin (Melatonin 3 Mg Tablet) 6 mg PO BEDTIME PRN PRN Reason: Insomnia Melatonin (Melatonin 3 Mg Tablet) 6 mg PO BEDTIME [facility] Last Admin: 05/21/22 21:35 Dose: 6 mg Documented By: EDUARDO Ondansetron HCl (Ondansetron Hcl 4 Mg/2 Ml Vial) 4 mg IVPUSH Q8H PRN PRN Reason: Nausea and Vomiting Pharmacy Consult (Consult Rx Perform Med Rec) 1 each MISCELLANE ONCE PRN PRN Reason: Consult order Pharmacy Consult (Consult Rx Vancomycin Dosing) 1 each MISCELLANE DAILY PRN PRN Reason: Consult order Rifaximin (Rifaximin 550 Mg Tablet) 550 mg PO BID [facility] Last Admin: 05/21/22 21:35 Dose: 550 mg Documented By: EDUARDO Sodium Chloride (0.9 % Sodium Chloride Flush 3 Ml Syringe) 3 ml IVFLUSH QSHIFT [facility] Last Admin: 05/22/22 00:08 Dose: 3 ml Documented By: KRISTINE Thiamine HCl (Thiamine Hcl 100 Mg Tablet) 100 mg PO DAILY [facility] Last Admin: 05/21/22 09:35 Dose: 100 mg Documented By: RICHARD Labs 05/21/22 07:40 05/21/22 07:40 Labs: Laboratory Results - last 24 hr 05/21/22 05/21/22 05/21/22 07:40 07:40 12:19 MCV 101.1 H MCH 34.0 H MCHC 33.6 RDW 16.4 H Plt Count 105 L MPV 9.3 L Immature Gran % (Auto) 0.3 Neut % (Auto) 77.3 H Lymph % (Auto) 8.8 L [place] % (Auto) 9.8 Eos % (Auto) 2.8 Baso % (Auto) 1.0 Lymph # (Auto) 0.9 L [place] # (Auto) 1.0 Eos # (Auto) 0.3 Baso # (Auto) 0.1 Abs Immat Gran (auto) 0.03 Absolute Neuts (auto) 7.7 Absolute Nucleated RBC 0.000 Nucleated RBC % (auto) 0.0 PT INR Anion Gap 17 Estim Creat Clear Calc 56.0 Estimated GFR 49 POC Glucose Random Glucose 113 Calcium 8.2 L Magnesium 1.6 Total Bilirubin 2.6 H AST 27 ALT 15 Alkaline Phosphatase 127 H Total Protein 6.0 L Albumin 2.5 L Peritoneal WBC 0.081 Peritoneal RBC < 0.002 [place] Neutrophils 17 [place] Lymphocytes 20 Peritoneal Monocytes 10 Peritoneal Other Cells 53 Peritoneal Tot Protein Peritoneal LDH 05/21/22 05/21/22 05/21/22 12:20 12:49 17:19 MCV MCH MCHC RDW Plt Count MPV Immature Gran % (Auto) Neut % (Auto) Lymph % (Auto) [place] % (Auto) Eos % (Auto) Baso % (Auto) Lymph # (Auto) [place] # (Auto) Eos # (Auto) Baso # (Auto) Abs Immat Gran (auto) Absolute Neuts (auto) Absolute Nucleated RBC Nucleated RBC % (auto) PT INR Anion Gap Estim Creat Clear Calc Estimated GFR POC Glucose 147 H 176 H Random Glucose Calcium Magnesium Total Bilirubin AST ALT Alkaline Phosphatase Total Protein Albumin Peritoneal WBC Peritoneal RBC Periton Neutrophils Periton Lymphocytes Peritoneal Monocytes Peritoneal Other Cells Peritoneal Tot Protein 0.9 Peritoneal LDH 28 05/21/22 05/22/22 05/22/22 20:33 05:38 07:40 MCV MCH MCHC RDW Plt Count MPV Immature Gran % (Auto) Neut % (Auto) Lymph % (Auto) [place] % (Auto) Eos % (Auto) Baso % (Auto) Lymph # (Auto) [place] # (Auto) Eos # (Auto) Baso # (Auto) Abs Immat Gran (auto) Absolute Neuts (auto) Absolute Nucleated RBC Nucleated RBC % (auto) PT 22.0 H INR 1.9 H Anion Gap Estim Creat Clear Calc Estimated GFR POC Glucose 190 H 130 H Random Glucose Calcium Magnesium Total Bilirubin AST ALT Alkaline Phosphatase Total Protein Albumin Peritoneal WBC Peritoneal RBC Periton Neutrophils Periton Lymphocytes Peritoneal Monocytes Peritoneal Other Cells Peritoneal Tot Protein Peritoneal LDH Microbiology Microbiology Results: Microbiology 05/20/22 17:46 Blood Culture - Preliminary Blood - Venous No growth after 24 hours. 05/20/22 17:46 Blood Culture - Preliminary Blood - Venous No growth after 24 hours. 05/21/22 12:19 Gram Stain - Final Paracentesis Fluid 05/20/22 21:27 Urine Culture - Preliminary Urine Catheterized - Ríos Catheter No growth to date. Assessment and Plan (1) End stage liver disease: Status: Acute (2) Alcoholic cirrhosis: Status: Acute Plan 56-year-old male with?EtOH cirrhosis, ascites, alcohol use disorder, and [id number] DM who presented to the ED with massive ascites and abdominal wall cellulitis # ascites - paracentesis 3/, 10 L removed, albumin given. SBP ruled out # nonpurulent cellulitis of abdominal wall - vancomycin 05/21-.? BCx negative # SAUL - giving albumin as above, monitor for hepatorenal syndrome, hold furosemide for now # hyperK-- - give lokelma, recheck BMP today # hepatic encephalopathy - rifaximin + lactulose # lactic acidosis - chronic, due to liver disease and not due to sepsis # thrombocytopenia # macrocytic anemia - chronic, due to cirrhosis # DM2 - correction-dose lispro # AUD, history - continue thiamine + folate # DM2 - correction-dose lispro #anemia--acute on chronic, no evidence of acute blood loss, type and screen transfuse 1 unit, he's agreable # VTE ppx: LMWH # dispo: TBD May leave after transfuseion today Time Spent With Patient Time: Total time managing care of this patient today ____ minutes. Quality Stroke Does the patient have a stroke diagnosis?: No VTE Prior VTE?: No VTE Risk Level:: Medical - moderate - high VTE Device Contraindication: Treatment Not Indicated VTE Drug Contraindication: N/A - Med Ordered
[2022-05-22 08:09] LABS: Alanine Aminotransferase 13 U/L (0-40); Albumin Level 2.6 g/dL (3.5-5.0); Alkaline Phosphatase 107 U/L (39-117); Aspartate Amino Transferase 27 U/L (5-37); Bilirubin Total 1.9 mg/dL (0.0-1.0); Blood Urea Nitrogen 32 mg/dL (9-16); Calcium 8.1 mg/dL (8.4-10.2); Estimated Glomerular Filt Rate 51; Glucose Random 160 mg/dL (60-115); Magnesium 1.5 mg/dL (1.6-2.6); Total Protein 5.2 g/dL (6.5-8.0)
[2022-05-22 08:10] LABS: Hematocrit 20.4 % (42.0-52.0); Platelet Count 69 X10*3/uL (160-400)
[2022-05-22 08:17] LABS: Anion Gap 13 (12-20); Carbon Dioxide 17 mmol/L (22-29); Chloride 106 mmol/L (96-108); Potassium 3.4 mmol/L (3.3-5.1); Sodium 133 mmol/L (135-145)
[2022-05-22] MEDS: Thiamine HCL 100 MG TABLET PO (09:45)
[2022-05-22] MEDS: Folic Acid 1 MG TABLET PO (09:45)
[2022-05-22] MEDS: rifAXIMin 550 MG TABLET PO (09:45)
[2022-05-22] MEDS: Lactulose 20 GM/30 ML SOLUTION PO (09:45)
[2022-05-22] MEDS: cefTRIAXone sodium 1 GM in 0.9 % Sodium Chloride 50 ML IV (09:48)
[2022-05-22] MEDS: Thiamine HCL 100 MG in 0.9 % Sodium Chloride 100 ML 202 MG IV (10:26)
[2022-05-22 11:12] LABS: Glucose, Whole Blood 174 mg/dL (60-115)
--- NOTE | 2022-05-22 12:08 | PM.DS ---
DS: Providers Provider Date of Service: 05/22/22 Date of admission: 05/20/22 21:06 Primary care physician: Maren Carvajal MD DS: Diagnosis Discharge Diagnosis (1) End stage liver disease: Status: Acute (2) Alcoholic cirrhosis: Status: Acute DS: Summary Hospital Course Hospital Course: Chief Complaint: Abdomen swelling This is a 56-year-old male with pertinent history of alcoholic cirrhosis, [id number] diabetes mellitus, alcohol use disorder who presents to the emergency department for evaluation of abdominal swelling.? Patient states he is compliant with his medications but unable to elaborate.? He was recently admitted and discharged about a month ago for decompensated alcoholic cirrhosis and underwent paracentesis.? Patient also endorses of right hip rash which is tender, red.? He does not know when it started.? He denies fever, chills, chest discomfort, palpitations, shortness of breath, changes in urinary or bowel habits.? Endorses abdominal discomfort. In the emergency department, imaging with significant ascites. Hospital coruse: He prsented with massive ascietes, confusion and had hepatic encephalopathy and symptomatic ascietes. His non compliant with meds hepatic encephalopathy was treated with lactulose and is presenty lucid, he underwent paracentesis on 10 liter removal on 05/22/22. he is advised to limit fluid intake of no more than 1500 cc a day, Time Spent with Patient Time attestation: Total time managing care of this patient today ____ minutes. Discharge coordination time: Greater than 30 minutes Quality: Safe Use of Opioids Does Pt have an Active Cancer Diagnosis on the Problem List?: No Quality: Stroke Does the patient have a stroke diagnosis?: No Physical Exam Vital Signs: Vital Signs: Last Vital Signs Temp 97.8 F 05/22/22 11:40 Pulse 113 H 05/22/22 11:40 Resp 19 05/22/22 11:40 BP 122/65 05/22/22 11:40 Pulse Ox 95 05/22/22 11:00 O2 Del Method 05/22/22 11:00 BMI result Body Mass Index 28.4 DS: Data Data Completed and Pending Completed studies during hospitalization [Text1]: Procedures Detoxification Services for Substance Abuse Treatment (04/23/22) Drainage of Peritoneal Cavity, Percutaneous Approach (04/23/22) Insertion of Infusion Device into Left Brachial Vein, Percutaneous Approach (04/23/22) Transfusion of Nonautologous Red Blood Cells into Peripheral Vein, Percutaneous Approach (04/23/22) Ultrasonography of Left Upper Extremity Veins, Guidance (04/23/22) Labs on day of discharge: Laboratory Results - last 24 hr 05/21/22 05/21/22 05/21/22 12:19 12:20 12:49 WBC RBC Hgb Hct MCV MCH MCHC RDW Plt Count MPV Absolute Nucleated RBC Nucleated RBC % (auto) PT INR Sodium Potassium Chloride Carbon Dioxide Anion Gap BUN Creatinine Estim Creat Clear Calc Estimated GFR POC Glucose 147 H Random Glucose Calcium Magnesium Total Bilirubin AST ALT Alkaline Phosphatase Total Protein Albumin Peritoneal WBC 0.081 Peritoneal RBC < 0.002 Periton Neutrophils 17 Periton Lymphocytes 20 Peritoneal Monocytes 10 Peritoneal Other Cells 53 Peritoneal Tot Protein 0.9 Peritoneal LDH 28 Blood Type Antibody Screen Crossmatch 05/21/22 05/21/22 05/22/22 17:19 20:33 05:38 WBC RBC Hgb Hct MCV MCH MCHC RDW Plt Count MPV Absolute Nucleated RBC Nucleated RBC % (auto) PT INR Sodium 133 L Potassium 3.4 D Chloride 106 Carbon Dioxide 17 L Anion Gap 13 BUN 32 H Creatinine 1.43 H Estim Creat Clear Calc 58.0 Estimated GFR 51 POC Glucose 176 H 190 H Random Glucose 160 H Calcium 8.1 L Magnesium 1.5 L Total Bilirubin 1.9 H AST 27 ALT 13 Alkaline Phosphatase 107 Total Protein 5.2 L Albumin 2.6 L Peritoneal WBC Peritoneal RBC Periton Neutrophils Periton Lymphocytes Peritoneal Monocytes Peritoneal Other Cells Peritoneal Tot Protein Peritoneal LDH Blood Type Antibody Screen Crossmatch 05/22/22 05/22/22 05/22/22 05:38 05:38 07:40 WBC 6.5 RBC 2.05 L D Hgb 7.1 L D Hct 20.4 L* D MCV 99.5 H MCH 34.6 H MCHC 34.8 RDW 16.0 Plt Count 69 L D MPV 9.5 Absolute Nucleated RBC 0.000 Nucleated RBC % (auto) 0.0 PT 22.0 H INR 1.9 H Sodium Potassium Chloride Carbon Dioxide Anion Gap BUN Creatinine Estim Creat Clear Calc Estimated GFR POC Glucose 130 H Random Glucose Calcium Magnesium Total Bilirubin AST ALT Alkaline Phosphatase Total Protein Albumin Peritoneal WBC Peritoneal RBC Periton Neutrophils Periton Lymphocytes Peritoneal Monocytes Peritoneal Other Cells Peritoneal Tot Protein Peritoneal LDH Blood Type Antibody Screen Crossmatch 05/22/22 05/22/22 09:13 11:08 WBC RBC Hgb Hct MCV MCH MCHC RDW Plt Count MPV Absolute Nucleated RBC Nucleated RBC % (auto) PT INR Sodium Potassium Chloride Carbon Dioxide Anion Gap BUN Creatinine Estim Creat Clear Calc Estimated GFR POC Glucose 174 H Random Glucose Calcium Magnesium Total Bilirubin AST ALT Alkaline Phosphatase Total Protein Albumin Peritoneal WBC Peritoneal RBC Periton Neutrophils Periton Lymphocytes Peritoneal Monocytes Peritoneal Other Cells Peritoneal Tot Protein Peritoneal LDH Blood Type O Negative Antibody Screen NEGATIVE Crossmatch See Detail Preliminary micro results at discharge 05/21/22 12:19 Anaerobic Culture - Preliminary Paracentesis Fluid No growth to date. Body Fluid Culture - Preliminary No growth to date. 05/20/22 17:46 Blood Culture - Preliminary Blood - Venous No growth after 24 hours. 05/20/22 17:46 Blood Culture - Preliminary Blood - Venous No growth after 24 hours. Discharge Plan Discharge Anticipated Discharge Date/Time: 05/22/22 12:07 Patient Disposition: Home, Self-Care Discharge Diagnosis: Hepatic encephalopathy, Cirrhosis, ascietes Referrals: Maren Carvajal MD [Primary Care Provider] - 1 Week Discharge Medications: Continued folic acid 1 mg tablet 1 mg PO DAILY Qty: 90 2RF lactulose 10 gram/15 mL solution 30 ml PO BID Qty: 473 1RF thiamine HCl (vitamin B1) 100 mg tablet 100 mg PO DAILY Qty: 90 2RF sodium chloride 1,000 mg tablet,soluble 1,000 mg PO DAILY Qty: 30 0RF insulin lispro 100 unit/mL Insulin Pen 0 sliding scale dose SUBCUT TIDAC Protocol: Insulin Correction Scale Less than or equal to 110 ---- Give (units): 0 111 to 150 Give (units): 0 151 to 200 Give (units): 2 201 to 250 Give (units): 4 251 to 300 Give (units): 6 301 to 350 Give (units): 8 Greater than 350 Give (units): 10 Call MD if Blood Glucose > : 350 Xifaxan 550 mg Tablet 550 mg PO BID Qty: 60 0RF furosemide 20 mg Tablet 20 mg PO DAILY Qty: 30 0RF Protocol: Hold for SBP< HOLD for SBP < : 90 clotrimazole [Lotrimin AF (clotrimazole)] 1 % cream 1 appl topical BID 56 Days Qty: 45 3RF metformin 1,000 mg tablet 1 tab PO BIDAC omeprazole 20 mg capsule,delayed release(DR/EC) 20 mg PO DAILY@0630 acetaminophen 325 mg Tablet 650 mg PO Q6H PRN (Reason: Pain) calamine phenolated [Calamine Phenol] Lotion 1 appl TOPICAL QID PRN (Reason: Rash) melatonin 3 mg Tablet 6 mg PO BEDTIME Diet: Advance to usual diet Activity on Discharge: As tolerated Stand Alone Forms: Patient Portal Discharge page Care Plan Goals: recovery from encephalopath, ascietes Health Concerns: cirrhosis, ascietes, anemia Plan of Treatment: Take all your medications as directed, avoid aldohol altogether Assessment: see luis enrique
[2022-05-22] MEDS: Insulin Lispro 100 UNIT/ML 3 ML VIAL SUBCUT ×2 (12:48→18:04)
[2022-05-22 13:44] LABS: Hematocrit 23.9 % (42.0-52.0); Hemoglobin 8.5 g/dl (14.0-18.0); Mean Corpuscular HGB Conc 35.6 g/dl (31.0-36.0); Mean Corpuscular Hemoglobin 35.1 pg (27.0-33.0); Mean Corpuscular Volume 98.8 fL (80.0-98.0); Mean Platelet Volume 9.7 fL (9.4-12.4); Red Blood Count 2.42 X10*6/uL (4.60-5.80); Red Cell Distribution Width 15.6 % (11.0-16.0)
[2022-05-22 13:47] LABS: Platelet Count 68 X10*3/uL (160-400)
--- NOTE | 2022-05-22 14:40 | MHC.CM.PN ---
HOME WITH [facility] RN AWARE OF PLAN
[2022-05-22 17:57] LABS: Glucose, Whole Blood 203 mg/dL (60-115)
== END 2022-05-22 20:22 | disposition home or self-care (01) | DRG 280 ==
LOC: HO.ED 21:41 → HO.EDOVER 21:47 → HO.S3 05-21 18:02
PROVIDERS: Family Medicine; Radiology Diagnostic Radiology; Admitting Provider Student in an Organized Health Care Education/Training Program; Emergency Provider Emergency Medicine Emergency Medical Services; PCP Internal Medicine; Visit Provider Internal Medicine
PROC: 0W9G3ZZ Drainage of Peritoneal Cavity, Percutaneous Approach (ICD-10-PCS; principal; 2022-05-21 12:00)
DX: K70.31 Alcoholic cirrhosis of liver with ascites (principal); D69.49 Other primary thrombocytopenia; E87.20 Acidosis, unspecified; N17.9 Acute kidney failure, unspecified; K76.82 Hepatic encephalopathy; D63.8 Anemia in other chronic diseases classified elsewhere; E87.1 Hypo-osmolality and hyponatremia; E87.5 Hyperkalemia; L03.311 Cellulitis of abdominal wall; F10.21 Alcohol dependence, in remission; D53.9 Nutritional anemia, unspecified; E11.9 Type 2 diabetes mellitus without complications; K72.10 Chronic hepatic failure without coma; I10 Essential (primary) hypertension; Z91.14 Patient's other noncompliance with medication regimen; Z20.822 Contact with and (suspected) exposure to COVID-19; Z79.4 Long term (current) use of insulin; Z88.5 Allergy status to narcotic agent; Z88.6 Allergy status to analgesic agent; Z88.8 Allergy status to other drugs, medicaments and biological substances; Z79.84 Long term (current) use of oral hypoglycemic drugs; Z79.899 Other long term (current) drug therapy
CPT/HCPCS: 0241U; 36415; 49083; 71045; 74176; 80048; 80053; 80076; 81001; 82077; 82140; 82947; 83605; 83615; 83690; 83735; 84157; 85025; 85027; 85610; 86850; 86900; 86901; 86923; 87040; 87070; 87073; 87086; 87205; 89051; 93005; 99285; C1758; J0696; J1650; J2543; J3371; J3411; P9016; P9047

== ENCOUNTER 2022-07-20 11:02 | Inpatient (IN) | payer MEDICAID, SELFPAY ==
[2022-07-20] VITALS (40 sets, daily range): BP systolic 75–119; BP diastolic 29–66; PULSE 71–132; RESP 18–90; TEMP 35–36.8; O2SAT 82–101; BMI 23.5
--- NOTE | ~2022-07-20 | CT_ITS ---
EXAMINATION: CT ABDOMEN AND PELVIS WITHOUT CONTRAST CLINICAL INFORMATION: Abdominal distention, nausea and vomiting COMPARISON: Previous CT scans most recent May 2022 TECHNIQUE: Multidetector volumetric imaging was performed from the superior aspect of the liver through the pubic symphysis. Sagittal and coronal reformatted images were obtained on the technologist's workstation. This CT examination was performed using dose optimization techniques as appropriate, variously including the following: *Automated exposure control *Adjustment of mA and/or kV according to patient size (this includes techniques or standardized protocols for targeted exams where dose is matched to indication/reason for exam; i.e. extremities or head) *Use of iterative reconstruction technique DLP: 499 mGy-cm FINDINGS: LUNG BASES: Limited due to motion artifact. Elevated right hemidiaphragm. Subsegmental atelectasis at the right lung base. Question atelectasis or small infiltrate at the left lung base. Small amount of fluid and fat adjacent to the pericardium similar to previous exams. Bilateral gynecomastia. LIVER, GALLBLADDER, AND BILIARY TREE: Cirrhotic liver. No focal liver lesion. Large gallstone in the gallbladder. No biliary duct dilatation. PANCREAS: Unremarkable. SPLEEN: Unremarkable. ADRENAL GLANDS: Unremarkable. KIDNEYS AND URETERS: The kidneys are normal in size, shape, and attenuation. Small bilateral renal stones. No hydronephrosis. BLADDER: Unremarkable. GASTROINTESTINAL TRACT: There is stool throughout the colon suggestive of constipation. There is question of mild thickening of the proximal small bowel and transverse colon. Small and large bowel is otherwise normal. The appendix is. Normal. The esophagus is slightly dilated and contains fluid. ABDOMINAL WALL: Small umbilical hernia containing ascitic fluid. Bilateral inguinal hernias on the right containing fluid on the left containing fat. LYMPH NODES: Normal. VASCULAR: Upper abdominal varices and paraesophageal varices. PELVIC VISCERA: Unremarkable. OSSEOUS STRUCTURES: Degenerative changes of the spine. CT/CT abdomen pelvis wo IV con IMPRESSION: Large amount of ascites. Cirrhosis.. Constipation. Question mild wall thickening of the proximal small bowel and transverse colon. Differential would include ileocolitis and changes related to patient's liver disease/low albumin. The distal esophagus is slightly distended and contains fluid. Small bilateral renal stones. Fleischner guidelines were followed.
--- NOTE | ~2022-07-20 | XR_ITS ---
EXAMINATION: XR CHEST CLINICAL INFORMATION: Pulmonary edema. COMPARISON: Chest radiograph earlier today at 5:12 AM. TECHNIQUE: Frontal view of the chest was obtained. FINDINGS: Left IJ CVC tip in similar positioning to prior projecting over the upper SVC. Stable appearance of the cardiomediastinal silhouette. Low lung volumes. New/increased multifocal airspace opacities, more prominent in the right lung. Suspect a small right-sided pleural effusion. No pneumothorax. No acute osseous abnormalities. XR/XR chest 1V IMPRESSION: New/increased multifocal airspace opacities, rapid change compared to x-ray from earlier today suggest the possibility of aspiration. Findings could be associated as well with worsening atypical pneumonia. Recommend continued follow-up to ensure resolution.
--- NOTE | ~2022-07-20 | XR_ITS ---
EXAMINATION: XR CHEST CLINICAL INFORMATION: Mental status change COMPARISON: Previous chest x-ray most recent 05/20/2022 TECHNIQUE: Frontal view of the chest was obtained. FINDINGS: The cardiac and mediastinal contours are stable. There is elevation of the right hemidiaphragm similar to previous exams. There is subsegmental atelectasis or small infiltrate at the right lung base. The left lung is clear. There is no pleural effusion or pneumothorax. There are degenerative changes of the spine. XR/XR chest 1V IMPRESSION: Elevated right hemidiaphragm and subsegmental atelectasis or small infiltrate at the right lung base.
--- NOTE | ~2022-07-20 | US_ITS ---
EXAMINATION: US ABDOMEN LIMITED CLINICAL INFORMATION: Hyperbilirubinemia. COMPARISON: CT abdomen pelvis 07/20/2022 TECHNIQUE: Real-time imaging of the right upper quadrant abdominal viscera. FINDINGS: GALLBLADDER: There is a large echogenic gallstone in the gallbladder measuring 3.3 cm. Corresponds to same size as seen on CT abdomen exam 07/20/2022. COMMON BILE DUCT: Normal in caliber measuring 0.3 cm in diameter. The middle portal vein and right portal vein is patent with normal hepatopedal flow. Left portal vein is not seen due to significant amount of ascites. US/US abdomen limited IMPRESSION: 1. Large gallstone measuring 3.3 cm. 2. The middle portal vein and right portal vein are patent. The left portal vein is not visualized. 3. Moderate amount of ascites.
--- NOTE | ~2022-07-20 | XR_ITS ---
EXAMINATION: XR CHEST CLINICAL INFORMATION: Triple-lumen catheter placement COMPARISON: 07/20/2022 TECHNIQUE: Frontal view of the chest was obtained. FINDINGS: Left IJ central line tip lies in the region of the upper SVC. The lungs are hypoinflated. Persistent mild right basilar atelectasis is suspected. No focal consolidation. No evidence of pneumothorax or significant pleural effusion. Central vasculature appears somewhat prominent. The cardiomediastinal silhouette is stable. No acute osseous findings are seen. XR/XR chest 1V IMPRESSION: Left IJ central line tip in the region of the upper SVC. Low lung volumes with suspected mild right basilar atelectasis. Prominent central vasculature may reflect a degree of congestion.
--- NOTE | ~2022-07-20 | XR_ITS ---
EXAMINATION: XR CHEST CLINICAL INFORMATION: Hypoxia COMPARISON: 07/24/2022 TECHNIQUE: Frontal view of the chest was obtained. FINDINGS: The tip of the left IJ catheter is approximately at level of junction of brachiocephalic veins and not significantly changed in position compared to prior radiograph. No pneumothorax. Lungs remain hypoinflated. Again noted are patchy bilateral airspace opacities. Overall, pulmonary disease remains similar in appearance compared to 07/24/2022 at 6:15 PM but might be slightly worse in the retrocardiac area of the left lower lobe and left perihilar region. No overt pleural effusion. Cardiac silhouette remains normal in size and contour. The visualized bones are intact. XR/XR chest 1V IMPRESSION: Patchy airspace opacities are nonspecific and could represent noncardiogenic edema or multilobar pneumonia. The pulmonary disease remains similar in appearance compared to 07/24/2022 at 6:15 PM.
--- NOTE | 2022-07-20 11:20 | ED_ITS ---
HPI - Abdominal Pain General Chief Complaint: General Medical Stated Complaint: SOB since 3 am per ems Time Seen by Provider: 07/20/22 11:16 Source: patient, EMS, RN notes reviewed and old records reviewed History of Present Illness HPI narrative: 56-year-old male with pertinent history of alcoholic cirrhosis, cpi-zmtotmi-hjpsgoynt diabetes mellitus, alcohol use disorder who presents to the ED c/o generalized fatigue/weakness, chills, decreased p.o. intake & SOB reported by girlfriend. Denies fever, CP, nausea/vomiting/diarrhea, dysuria/hematuria Related Data Home Medications Medication Instructions Recorded Confirmed insulin lispro 100 unit/mL 0 sliding scale dose subcut TIDAC 04/03/22 07/20/22 subcutaneous pen melatonin 3 mg tablet 6 mg PO BEDTIME 05/20/22 07/20/22 metformin 1,000 mg tablet 1 tab PO BIDAC 05/20/22 07/20/22 omeprazole 20 mg capsule,delayed 20 mg PO DAILY@0630 05/20/22 07/20/22 release midodrine 5 mg tablet 5 mg PO TID@0900,1300,1700 07/20/22 07/20/22 Previous Rx's Medication Instructions Recorded folic acid 1 mg tablet 1 mg PO DAILY #90 tabs 03/05/22 furosemide 20 mg tablet 20 mg PO DAILY #30 tabs 04/08/22 rifaximin 550 mg tablet (Xifaxan) 550 mg PO BID #60 tabs 04/08/22 sodium chloride 1,000 mg soluble 1,000 mg PO DAILY #30 tabs 05/18/22 tablet thiamine HCl (vitamin B1) 100 mg 100 mg PO DAILY #90 tabs 05/18/22 tablet lactulose 10 gram/15 mL oral 30 ml PO BID #473 mL 07/14/22 solution Allergies Allergy/AdvReac Type Severity Reaction Status Date / Time acetaminophen [From PERCOCET] Allergy Severe AGITATION Verified 05/12/22 15:32 oxycodone [From PERCOCET] Allergy Severe AGITATION Verified 05/12/22 15:32 bee pollen [Bee Stings] Allergy Mild SWELLING Verified 05/12/22 15:32 lorazepam AdvReac Unknown AGITATION Verified 05/12/22 15:32 Review of Systems Review of Systems Constitutional: No Fever, + Chills Cardiovascular: No Chest Pain, + SOB, No Edema Respiratory: No Cough, No Sputum, No Wheezing, No Dyspnea Gastrointestinal: No Nausea, No Vomiting, No Diarrhea, No Constipation, No Abdominal pain, No Hematochezia, No Melena Genitourinary: No Dysuria, No Hematuria, No Flank Pain Musculoskeletal: No joint pain, No Myalgias, No Joint Swelling Skin: No Skin Lesions, No rash Neuro: + Weakness, No Dizziness, No Headache Yes all other systems are reviewed and are negative Constitutional: Reports as per HPI Reports confusion Psychiatric: Reports confusion [facility] Past Medical History Attestation statement: The following information was validated with the patient. Medical History SAUL (acute kidney injury) SAUL (acute kidney injury) Alcohol abuse Alcoholic cirrhosis Ascites Diabetes Elevated liver enzymes Hypertension Hyponatremia Liver cirrhosis Pressure ulcer Withdrawal seizures Surgical History No pertinent past surgical history Family History Family History Other No family history of coronary artery disease Social History Social History Household Members: Significant Other Housing: House Do you presently have visiting nurse or other home services: No Unable to assess alcohol history related to: Refusing to respond Alcohol intake: current Alcohol intake frequency: does not drink Alcohol type: beer and hard liquor Patient Tobacco Use Status: Never used Tobacco Tobacco use type: Smokeless Tobacco Smoked in Last 30 Days: No Second Hand Smoke Exposure: No Use of substances other than those prescribed or required for medical reasons: No Advance Directives: Yes Advance Directives on File: Yes Advance Directives Date on File: 03/18/22 service: Yes Current occupational status: disabled Physical Exam ED Vital Signs: Vital Signs - 24 hr 07/20/22 11:11 07/20/22 11:32 07/20/22 11:53 Temperature 95.0 F L Pulse Rate 113 H 112 H 114 H Respiratory Rate 22 H Blood Pressure 114/48 L 99/46 L Pulse Oximetry 97 98 93 Oxygen Delivery Method Room Air Room Air Room Air Oxygen Flow Rate 07/20/22 12:37 07/20/22 12:55 07/20/22 13:15 Temperature Pulse Rate 107 H 110 H 108 H Respiratory Rate 24 H 20 20 Blood Pressure 93/49 L 92/55 L 89/52 L Pulse Oximetry Oxygen Delivery Method Oxygen Flow Rate 07/20/22 13:40 07/20/22 13:55 07/20/22 14:19 Temperature Pulse Rate 105 H 100 104 H Respiratory Rate 22 H 20 Blood Pressure 97/52 L 88/35 L 93/45 L Pulse Oximetry 82 L Oxygen Delivery Method Room Air Oxygen Flow Rate 07/20/22 14:27 07/20/22 14:33 07/20/22 14:38 Temperature Pulse Rate Respiratory Rate Blood Pressure 80/33 L 75/37 L 83/62 L Pulse Oximetry 90 L 100 Oxygen Delivery Method Oxymask Non-Rebreather Mask Oxygen Flow Rate 6 BMI result Body Mass Index 23.5 Const Other: + jaundice General: cooperative, no acute distress and confusion Orientation/consciousness: oriented to place and confusion Limitations: no limitations HENMT Head: Yes normal to inspection and Yes atraumatic Ears: hearing grossly normal bilaterally General nose exam: Normal external nose present Face and sinus: Yes normal facial exam Mouth: mucous membranes dry Eyes General: appearance normal, both eyes and all related structures EOM: EOMs intact bilaterally Neck Neck: Yes normal visual inspection and Yes no meningeal signs Resp Effort & Inspection: normal respiratory effort and no respiratory distress Auscultation: clear to auscultation bilaterally Cardio Rate: regular rate Heart sounds: S1 normal heart sound present and S2 normal heart sound present GI Inspection: Yes normal to inspection and Yes distended Palpation (GI): Soft to palpation, nontender, no guarding, not rigid and Ascites present Skin Rashes: no rashes Wounds: no wounds Neuro General: oriented to place, tone normal, moves all extremities, no meningeal signs and confusion Extrem General: Yes normal to inspection and Yes no pedal edema Course Course Course Narrative: -1254--WBC count 11.6. Chronic anemia at patient's baseline. -hyponatremic to 128 > likely hypovolemic hyponatremia. Potassium elevated 5.7 with slight hemolysis > lokelma given -T and D bili chronically elevated, AST/ALT elevated likely from chronic ETOH abuse. Alk-phos chronically elevated -troponin 17 > will obtain 3 hour repeat XR chest 1V IMPRESSION: Elevated right hemidiaphragm and subsegmental atelectasis or small infiltrate at the right lung base. - SAUL with a BUN of 106 and creatinine of 6.62, lactic acid of 3.0 >> will consult GI & nephrology concern for hepatorenal syndrome 1332--CT abdomen pelvis wo IV con IMPRESSION: Large amount of ascites. Cirrhosis. Constipation. Question mild wall thickening of the proximal small bowel and transverse colon. Differential would include ileocolitis and changes related to patient's liver disease/low albumin. The distal esophagus is slightly distended and contains fluid. Small bilateral renal stones. ? Fleischner guidelines were followed. > 1420-- Case d/w Dr. Christopher who also evaluated patient, will give additional IVF & atypical coverage with Azithromycin for possible pneumonia & consult canceling machine operator -spoke with canceling machine operator, Dr. Garcia, commended additional albumin/empiric an tibiotic coverage. Patient admitted to the ICU for further management Medical Decision Making Medical Decision Making [facility] Narrative: 56-year-old male with pertinent history of alcoholic cirrhosis, no v-rrskorm-yxtgvpsso diabetes mellitus, alcohol use disorder who presents to the ED c/o generalized fatigue/weakness, chills, decreased p.o. intake & SOB reported by girlfriend. On exam tachycardic, tachypneic, mildly hypothermic 95 rectally, A&Ox1, pleasantly confused, jaundiced with scleral icterus, abdomen distended with ascites, nontender, no rebound or guarding. Concern for hepatic encephalopathy and ascites. Rule out metabolic abnormalities. Lower suspicion for SBP or ACS Plan: EKG, labs, UA, CXR, CT AP, lactic/blood cultures, IV antibiotics, admission Please refer to course for remaining clinical decision making, interpretation of labs/imaging results, and discussions with consultants and/or family members. Differential Diagnosis Differential Diagnoses: The differential diagnosis associated with the presentation includes As above Admission/Observation Consideration of admission/observation: Escalation of care including admission/observation considered Consult Healthcare Provider Management of the patient was discussed with: Hospitalist (Molecular Modeler) and Sales And Operations Trainee Lab Data [facility] Lab Attestation statement: I reviewed the patient's lab results. 07/20/22 12:09 07/20/22 12:09 Labs: Lab Results 07/20/22 07/20/22 07/20/22 Range/Units 12:09 12:09 12:09 WBC 11.6 H (4.8-10.8) X10*3/uL RBC 2.38 L (4.60-5.80) X10*6/uL Hgb 8.6 L (14.0-18.0) g/dl Hct 24.2 L (42.0-52.0) % MCV 101.7 H (80.0-98.0) fL MCH 36.1 H (27.0-33.0) pg MCHC 35.5 (31.0-36.0) g/dl RDW 16.7 H (11.0-16.0) % Plt Count 89 L D (160-400) X10*3/uL MPV 10.6 (9.4-12.4) fL Immature Gran % (Auto) 0.5 H (0.0-0.4) % Neut % (Auto) 90.8 H (45-73) % Lymph % (Auto) 4.7 L (20-40) % Posey % (Auto) 3.8 (2-11) % Eos % (Auto) 0.2 (0-4) % Baso % (Auto) 0.0 (0-2) % Lymph # (Auto) 0.6 L (1.2-4.9) X10*3/uL Posey # (Auto) 0.4 (0.1-1.2) X10*3/uL Eos # (Auto) 0.0 (0.0-0.4) X10*3/uL Baso # (Auto) 0.0 (0.0-0.2) X10*3/uL Abs Immat Gran (auto) 0.06 H (0.00-0.03) X10*3/uL Absolute Neuts (auto) 10.5 H (2.0-8.3) x10*3/uL Absolute Nucleated RBC 0.000 (0.0-0.012) X10*3/uL Nucleated RBC % (auto) 0.0 (0.0-0.2) /100WBC Smear Tech's Comments VERIFIED PT 29.9 H (10.0-13.1) SEC INR 2.5 H (0.9-1.1) Sodium 128 L (135-145) mmol/L Potassium 5.7 H D (3.3-5.1) mmol/L Chloride 101 (96-108) mmol/L Carbon Dioxide 15 L (22-29) mmol/L Anion Gap 18 (12-20) BUN 106 H (9-16) mg/dL Creatinine 6.62 H* (0.5-1.4) mg/dL Estim Creat Clear Calc 11.7 Estimated GFR 9 Random Glucose 128 H (60-115) mg/dL Lactic Acid (0.5-2.0) mmol/L Calcium 9.4 D (8.4-10.2) mg/dL Magnesium 1.9 (1.6-2.6) mg/dL Total Bilirubin 3.7 H (0.0-1.0) mg/dL Direct Bilirubin 1.8 H (0.0-0.5) mg/dL AST 129 H (5-37) U/L ALT 59 H (0-40) U/L Alkaline Phosphatase 255 H (39-117) U/L Ammonia (13-55) umol/L Troponin I High Sens (<3.5-35.0) ng/L B-Natriuretic Peptide (<100) pg/mL Total Protein 5.9 L (6.5-8.0) g/dL Albumin 2.3 L (3.5-5.0) g/dL Lipase 16 (8-78) U/L Urine Color Urine Appearance Urine pH (5.0-9.0) Ur Specific [place] (1.005-1.025) Urine Protein (Neg-Trace) mg/dL Urine Glucose (UA) (Negative) mg/dL Urine Ketones (Negative) mg/dL Urine Blood (Negative) Urine Nitrite (Negative) Ur Leukocyte Esterase (Negative) Urine RBC (0-2) /HPF Urine WBC (0-5) /HPF Ur Squamous Epith Cells (0-2) /HPF Urine Bacteria (None Seen) Hyaline Casts (0-2) /LPF Urine Yeast COVID-19 (JESIKA) (Negative) COVID-19 Clin Com 07/20/22 07/20/22 07/20/22 Range/Units 12:09 12:09 12:09 WBC (4.8-10.8) X10*3/uL RBC (4.60-5.80) X10*6/uL Hgb (14.0-18.0) g/dl Hct (42.0-52.0) % MCV (80.0-98.0) fL MCH (27.0-33.0) pg MCHC (31.0-36.0) g/dl RDW (11.0-16.0) % Plt Count (160-400) X10*3/uL MPV (9.4-12.4) fL Immature Gran % (Auto) (0.0-0.4) % Neut % (Auto) (45-73) % Lymph % (Auto) (20-40) % Posey % (Auto) (2-11) % Eos % (Auto) (0-4) % Baso % (Auto) (0-2) % Lymph # (Auto) (1.2-4.9) X10*3/uL P[place]y # (Auto) (0.1-1.2) X10*3/uL Eos # (Auto) (0.0-0.4) X10*3/uL Baso # (Auto) (0.0-0.2) X10*3/uL Abs Immat Gran (auto) (0.00-0.03) X10*3/uL Absolute Neuts (auto) (2.0-8.3) x10*3/uL Absolute Nucleated RBC (0.0-0.012) X10*3/uL Nucleated RBC % (auto) (0.0-0.2) /100WBC Smear Tech's Comments PT (10.0-13.1) SEC INR (0.9-1.1) Sodium (135-145) mmol/L Potassium (3.3-5.1) mmol/L Chloride (96-108) mmol/L Carbon Dioxide (22-29) mmol/L Anion Gap (12-20) BUN (9-16) mg/dL Creatinine (0.5-1.4) mg/dL Estim Creat Clear Calc Estimated GFR Random Glucose (60-115) mg/dL Lactic Acid 3.0 H* (0.5-2.0) mmol/L Calcium (8.4-10.2) mg/dL Magnesium (1.6-2.6) mg/dL Total Bilirubin (0.0-1.0) mg/dL Direct Bilirubin (0.0-0.5) mg/dL AST (5-37) U/L ALT (0-40) U/L Alkaline Phosphatase (39-117) U/L Ammonia 30 (13-55) umol/L Troponin I High Sens 17.0 D (<3.5-35.0) ng/L B-Natriuretic Peptide (<100) pg/mL Total Protein (6.5-8.0) g/dL Albumin (3.5-5.0) g/dL Lipase (8-78) U/L Urine Color Urine Appearance Urine pH (5.0-9.0) Ur Specific [place] (1.005-1.025) Urine Protein (Neg-Trace) mg/dL Urine Glucose (UA) (Negative) mg/dL Urine Ketones (Negative) mg/dL Urine Blood (Negative) Urine Nitrite (Negative) Ur Leukocyte Esterase (Negative) Urine RBC (0-2) /HPF Urine WBC (0-5) /HPF Ur Squamous Epith Cells (0-2) /HPF Urine Bacteria (None Seen) Hyaline Casts (0-2) /LPF Urine Yeast COVID-19 (JESIKA) (Negative) COVID-19 Clin Com 07/20/22 07/20/22 07/20/22 Range/Units 12:09 12:09 13:49 WBC (4.8-10.8) X10*3/uL RBC (4.60-5.80) X10*6/uL Hgb (14.0-18.0) g/dl Hct (42.0-52.0) % MCV (80.0-98.0) fL MCH (27.0-33.0) pg MCHC (31.0-36.0) g/dl RDW (11.0-16.0) % Plt Count (160-400) X10*3/uL MPV (9.4-12.4) fL Immature Gran % (Auto) (0.0-0.4) % Neut % (Auto) (45-73) % Lymph % (Auto) (20-40) % Posey % (Auto) (2-11) % Eos % (Auto) (0-4) % Baso % (Auto) (0-2) % Lymph # (Auto) (1.2-4.9) X10*3/uL [place] # (Auto) (0.1-1.2) X10*3/uL Eos # (Auto) (0.0-0.4) X10*3/uL Baso # (Auto) (0.0-0.2) X10*3/uL Abs Immat Gran (auto) (0.00-0.03) X10*3/uL Absolute Neuts (auto) (2.0-8.3) x10*3/uL Absolute Nucleated RBC (0.0-0.012) X10*3/uL Nucleated RBC % (auto) (0.0-0.2) /100WBC Smear Tech's Comments PT (10.0-13.1) SEC INR (0.9-1.1) Sodium (135-145) mmol/L Potassium (3.3-5.1) mmol/L Chloride (96-108) mmol/L Carbon Dioxide (22-29) mmol/L Anion Gap (12-20) BUN (9-16) mg/dL Creatinine (0.5-1.4) mg/dL Estim Creat Clear Calc Estimated GFR Random Glucose (60-115) mg/dL Lactic Acid (0.5-2.0) mmol/L Calcium (8.4-10.2) mg/dL Magnesium (1.6-2.6) mg/dL Total Bilirubin (0.0-1.0) mg/dL Direct Bilirubin (0.0-0.5) mg/dL AST (5-37) U/L ALT (0-40) U/L Alkaline Phosphatase (39-117) U/L Ammonia (13-55) umol/L Troponin I High Sens (<3.5-35.0) ng/L B-Natriuretic Peptide 32 (<100) pg/mL Total Protein (6.5-8.0) g/dL Albumin (3.5-5.0) g/dL Lipase (8-78) U/L Urine Color Dark Yellow Urine Appearance Turbid Urine pH 5.0 (5.0-9.0) Ur Specific [place] 1.015 (1.005-1.025) Urine Protein Trace (Neg-Trace) mg/dL Urine Glucose (UA) Negative (Negative) mg/dL Urine Ketones Trace (Negative) mg/dL Urine Blood Small (1+) H (Negative) Urine Nitrite Negative (Negative) Ur Leukocyte Esterase Large (3+) H (Negative) Urine RBC >20 H (0-2) /HPF Urine WBC >50 H (0-5) /HPF Ur Squamous Epith Cells 0-2 (0-2) /HPF Urine Bacteria None Seen (None Seen) Hyaline Casts 0-2 (0-2) /LPF Urine Yeast Present COVID-19 (JESIKA) Negative (Negative) COVID-19 Clin Com See Note Radiology Impression Discussion of test interpretation with radiology: I have reviewed the radiologist's reading. External Record Review External record reviewed: Inpatient record, Office record, Outpatient record, Prior outpatient labs, Prior outpatient radiology, Primary care record and Outside ED record Social Determinants Patient?s care significantly limited by Social Determinants of Health including: Alcoholism and drug addiction in family Medications Administered Generic Name Dose Route Start Last Admin Trade Name Freq PRN Reason Stop Dose Admin Albumin Human 100 mls @ 133.333 mls/hr 07/20/22 14:45 07/20/22 15:10 Kedbumin 25 % IV 07/20/22 16:29 133.33 mls/hr Q1H LEO Administration Midodrine 10 mg 07/20/22 15:00 07/20/22 15:16 Midodrine Hcl 10 Mg Tablet PO 10 mg TID LEO Administration Discontinued Medications Generic Name Dose Route Start Last Admin Trade Name Freq PRN Reason Stop Dose Admin Piperacillin Sod/Tazobactam 50 mls @ 100 mls/hr 07/20/22 11:36 07/20/22 14:15 Sod 3.375 gm/ Sodium Chloride IV 07/20/22 12:05 Infused ONCE ONE Infusion Sodium Chloride 250 mls @ 999 mls/hr 07/20/22 11:45 07/20/22 12:37 Ns IV 07/20/22 12:00 Infused .Q16M LEO Infusion Sodium Chloride 250 mls @ 999 mls/hr 07/20/22 13:15 07/20/22 14:44 Ns IV 07/20/22 13:30 Infused .Q16M LEO Infusion Albumin Human 100 mls @ 100 mls/hr 07/20/22 13:42 07/20/22 15:21 Kedbumin 25 % IV 07/20/22 14:41 Infused ONCE ONE Infusion Sodium Chloride 1,500 mls @ 999 mls/hr 07/20/22 14:30 07/20/22 14:28 Ns IV 07/20/22 16:00 999 mls/hr .Q1H31M LEO Administration Meropenem 1 gm/ Sodium 100 mls @ 200 mls/hr 07/20/22 15:00 07/20/22 15:11 Chloride IV 07/20/22 15:29 200 mls/hr ONCE ONE Administration Lactulose 20 gm 07/20/22 12:53 07/20/22 13:48 Lactulose 20 Gm/30 Ml Solution PO 07/20/22 12:54 20 gm ONCE ONE Administration Sodium Zirconium Cyclosilicate 10 gm 07/20/22 12:56 07/20/22 13:49 Sodium Zirconium Cyclosilicate 10 Gm Powd.Pack PO 07/20/22 12:57 10 gm ONCE ONE Administration Critical Care Time Critical Care Time Critical Care Time: Yes Total Critical Care Time: 60 Attestation: I have personally provided critical care time exclusive of time spent on se parately billable procedures. Time includes review of lab data, radiology results, discussion with consultants, and monitoring for potential decompensation. Intervention performed as documented. Discharge Plan Discharge Clinical Impression: Alcoholic cirrhosis, SAUL (acute kidney injury), Hypoxia, Acute UTI Patient Disposition: Admitted As Inpatient
--- NOTE | 2022-07-20 11:30 | ECG_ITS ---
Test Reason : AMS Blood Pressure : / mmHG Vent. Rate : 111 BPM Atrial Rate : 111 BPM P-R Int : 160 ms QRS Dur : 082 ms QT Int : 324 ms P-R-T Axes : 051 083 059 degrees QTc Int : 440 ms Sinus tachycardia Otherwise normal ECG When compared with ECG of 20-MAY-2022 17:28, No significant change was found Referred By: Hellen Ospina Electronically Signed By:JERRELL BLAIR MD
--- NOTE | 2022-07-20 11:36 | PC.NURSE ---
Pt alert/oriented x 1. States feeling unwell today. Denies pain at this time. Denies n/v/d. Appears generally weak. Skin Jaundiced. Mucous membranes dry. Tachy 110s on tele, NSR. Pt reports paracentesis q10 days and being overdue. Abrasion with dressing removed to right side. Also left melchor noted with small open area. Breathing even.unlabored at this time
[2022-07-20] MEDS: Piperacillin Sodium/Tazobactam 3.375 GM in 0.9 % Sodium Chloride 50 ML IV (12:13)
[2022-07-20] MEDS: 0.9 % Sodium Chloride 250 ML 999 ML IV ×2 (12:13→13:51)
--- NOTE | 2022-07-20 12:17 | PHA.MEDREC ---
Pharmacy Consult ? Medication Reconciliation Pharmacy has completed the medication reconciliation.
[2022-07-20 12:20] LABS: Eosinophils Percent Auto 0.2 % (0-4); Hematocrit 24.2 % (42.0-52.0); Hemoglobin 8.6 g/dl (14.0-18.0); Imm Gran Abs Auto 0.06 X10*3/uL (0.00-0.03); Imm Gran Pct Auto 0.5 % (0.0-0.4); Lymphocytes Absolute Auto 0.6 X10*3/uL (1.2-4.9); Lymphocytes Percent Auto 4.7 % (20-40); MANUAL DIFF FLAG SCAN; Mean Corpuscular HGB Conc 35.5 g/dl (31.0-36.0); Mean Corpuscular Hemoglobin 36.1 pg (27.0-33.0); Mean Corpuscular Volume 101.7 fL (80.0-98.0); Mean Platelet Volume 10.6 fL (9.4-12.4); Monocytes Absolute Auto 0.4 X10*3/uL (0.1-1.2); Monocytes Percent Auto 3.8 % (2-11); Neutrophils Absolute Auto 10.5 x10*3/uL (2.0-8.3); Neutrophils Percent Auto 90.8 % (45-73); Platelet Count 89 X10*3/uL (160-400); Red Blood Count 2.38 X10*6/uL (4.60-5.80); Red Cell Distribution Width 16.7 % (11.0-16.0); SCAN SMEAR FLAG 1; White Blood Count 11.6 X10*3/uL (4.8-10.8)
[2022-07-20 12:26] LABS: INTERNATIONAL NORM RATIO 2.5 (0.9-1.1); Prothrombin Time 29.9 SEC (10.0-13.1)
[2022-07-20 12:33] LABS: COVID-19 Test Negative (Negative); IDNOW Serial# 6674DD1D
[2022-07-20 12:41] LABS: B Type Natriuretic Peptide 32 pg/mL (<100)
[2022-07-20 12:44] LABS: SLIDE REVIEW VERIFIED
[2022-07-20 12:49] LABS: Ammonia 30 umol/L (13-55)
[2022-07-20 12:50] LABS: Alanine Aminotransferase 59 U/L (0-40); Albumin Level 2.3 g/dL (3.5-5.0); Alkaline Phosphatase 255 U/L (39-117); Anion Gap 18 (12-20); Aspartate Amino Transferase 129 U/L (5-37); Bilirubin Direct 1.8 mg/dL (0.0-0.5); Bilirubin Total 3.7 mg/dL (0.0-1.0); Blood Urea Nitrogen 106 mg/dL (9-16); Calcium 9.4 mg/dL (8.4-10.2); Carbon Dioxide 15 mmol/L (22-29); Chloride 101 mmol/L (96-108); Glucose Random 128 mg/dL (60-115); Lipase 16 U/L (8-78); Potassium 5.7 mmol/L (3.3-5.1); Sodium 128 mmol/L (135-145); Total Protein 5.9 g/dL (6.5-8.0)
[2022-07-20 13:11] LABS: Creatinine Clr Calc Pharmacy 11.7; Estimated Glomerular Filt Rate 9
[2022-07-20 13:13] LABS: Magnesium 1.9 mg/dL (1.6-2.6)
[2022-07-20] MEDS: Lactulose 20 GM/30 ML SOLUTION PO (13:48)
[2022-07-20] MEDS: Sodium Zirconium Cyclosilicate 10 GM POWD.PACK PO (13:49)
[2022-07-20] MEDS: Albumin Human 25 % 100 ML IV (14:05)
[2022-07-20 14:15] LABS: Reflex Lactate? Lactic Acid Added
--- NOTE | 2022-07-20 14:20 | PC.NURSE ---
Second IV access obtained. Medicated as charted in EMAR. Pt tolerated most of PO meds given however did vomit small amt of meds back. BP remains low, Hellen CAMILO aware. Albumin infusing at this time. zamarripa in place, unable to utilize zamarripa temp sensing, 16fr too large for urethral opening. 14fr placed with minimal dark urine output at this time. Pt remains alert to voice. Sat 82% on room iar, placed on 02 3lpm via nc. Large formed brown stool noted, cleaned. Calvin castañeda in place for temp.
[2022-07-20] MEDS: 0.9 % Sodium Chloride 1,500 ML 999 ML IV (14:28)
[2022-07-20 14:31] LABS: Appearance Urine Turbid; Color Urine Dark Yellow; Glucose Urine UA Negative (Negative); Leukocyte Esterase Urine Large (3+) (Negative); Nitrite Urine Negative (Negative); Specific Gravity - Urine 1.015 (1.005-1.025); UMIC TRIGGER UACC YES; Urine Blood Small (1+) (Negative); Urine Ketones Trace mg/dL (Negative); Urine Protein Trace mg/dL (Neg-Trace)
[2022-07-20 14:39] LABS: Bacteria Urine None Seen (None Seen); Hyaline Casts Urine 0-2 /LPF (0-2); RBC Urine >20 /HPF (0-2); Squamous Epithelial Cell Urine 0-2 /HPF (0-2); UACC Culture Trigger YES; WBC Urine >50 /HPF (0-5)
--- NOTE | 2022-07-20 14:47 | PM.CNNEP ---
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 after patient presented with complains of fatigue and weakness over several days.? On ER evaluation patient in acute renal failure with metabolic acidosis and hyperkalemia.? Also noted to have hypertension with poor response to initial IV fluid resuscitation.? Patient was started on colloidal support and broad-spectrum antibiotics and admitted to intensive care unit. Review of Systems Review of Systems Yes Unobtainable due to mental status PMFSH Past Medical History Medical History SAUL (acute kidney injury) SAUL (acute kidney injury) Alcohol abuse Alcoholic cirrhosis Ascites Diabetes Elevated liver enzymes Hypertension Hyponatremia Liver cirrhosis Pressure ulcer Withdrawal seizures Family History Family History Other No family history of coronary artery disease Surgical History Surgical History No pertinent past surgical history Social History Social History Household Members: Significant Other Housing: Unknown / Unable to assess Do you presently have visiting nurse or other home services: No Unable to assess alcohol history related to: Unknown Alcohol intake: current Alcohol intake frequency: does not drink Alcohol type: beer and hard liquor Patient Tobacco Use Status: Never used Tobacco Tobacco use type: Smokeless Tobacco Second Hand Smoke Exposure: No Advance Directives Date on File: 03/18/22 service: Yes Current occupational status: disabled Meds Allergies Allergy/AdvReac Type Severity Reaction Status Date / Time acetaminophen [From PERCOCET] Allergy Severe AGITATION Verified 05/12/22 15:32 oxycodone [From PERCOCET] Allergy Severe AGITATION Verified 05/12/22 15:32 bee pollen [Bee Stings] Allergy Mild SWELLING Verified 05/12/22 15:32 lorazepam AdvReac Unknown AGITATION Verified 05/12/22 15:32 Active Medications: Current Medications Sodium Chloride (Ns) 1,500 mls @ 999 mls/hr IV .Q1H31M LEO Stop: 07/20/22 16:00 Last Admin: 07/20/22 14:28 Dose: 999 mls/hr Albumin Human (Kedbumin 25 %) 100 mls @ 133.333 mls/hr IV Q1H [facility] Stop: 07/20/22 16:29 Sodium Bicarbonate 150 meq/ (Dextrose) 1,000 mls @ 50 mls/hr IV .Q20H LEO Meropenem 1 gm/ Sodium (Chloride) 100 mls @ 200 mls/hr IV ONCE ONE Stop: 07/20/22 15:14 Midodrine (Midodrine Hcl 10 Mg Tablet) 10 mg PO TID [facility] Home Medications Medication Instructions Recorded Confirmed Last Taken Type insulin lispro 100 unit/mL 0 sliding scale dose subcut TIDAC 04/03/22 07/20/22 04/03/22 History subcutaneous pen melatonin 3 mg tablet 6 mg PO BEDTIME 05/20/22 07/20/22 05/19/22 History metformin 1,000 mg tablet 1 tab PO BIDAC 05/20/22 07/20/22 05/20/22 History omeprazole 20 mg capsule,delayed 20 mg PO DAILY@0630 05/20/22 07/20/22 05/20/22 History release midodrine 5 mg tablet 5 mg PO TID@0900,1300,1700 07/20/22 07/20/22 Unknown History Physical Exam Vital Signs: Last Vital Signs Temp 95.0 F L 07/20/22 11:11 Pulse 105 H 07/20/22 14:44 Resp 22 H 07/20/22 14:44 BP 88/42 L 07/20/22 14:44 Pulse Ox 100 07/20/22 14:44 O2 Del Method Non-Rebreather Mask 07/20/22 14:44 O2 Flow Rate 15 07/20/22 14:44 BMI result Body Mass Index 23.5 Const:?? General: no acute distress and lethargic ( arousable)? Orientation/consciousness: lethargic ( arousable) HEENT:?? Head: Yes atraumatic? Mouth: no other ( thrush)? Throat: No postnasal drainage Eyes:?? General: appearance normal, both eyes and all related structures? Sclerae: sclerae normal? EOM: EOMs intact bilaterally Neck:?? Neck: Yes supple? Lymphatic: no lymphadenopathy noted Resp:?? Effort & Inspection: tachypneic and no use of accessory muscles? Auscultation: crackles ( bibasilar) Cardio:?? Rate: tachycardic? Rhythm: regular rhythm? Heart sounds: no gallops, no murmurs and no rubs GI:?? Inspection: Yes distended? Palpation (GI): Soft to palpation and nontender Skin:?? General skin exam: other ( warm)? Rashes: no rashes Extrem:?? General: No clubbing, No cyanosis and Yes edema ( 1+ bilateral) Results Lab Results 07/20/22 12:09 07/20/22 12:09 Lab results: Chemistry 07/20/22 12:09 Sodium 128 L Potassium 5.7 H D Carbon Dioxide 15 L BUN 106 H Creatinine 6.62 H* Calcium 9.4 D Hematology 07/20/22 12:09 WBC 11.6 H Hgb 8.6 L Plt Count 89 L D Urinalysis 07/20/22 13:49 Urine Color Dark Yellow Urine Appearance Turbid Urine pH 5.0 Ur Specific [place] 1.015 Urine Protein Trace Urine Glucose (UA) Negative Urine Ketones Trace Urine Blood Small (1+) H Urine Nitrite Negative Ur Leukocyte Esterase Large (3+) H Urine RBC >20 H Urine WBC >50 H Ur Squamous Epith Cells 0-2 Hyaline Casts 0-2 Assessment and Plan (1) Hepatorenal syndrome: Status: Acute (2) Alcoholic cirrhosis: Status: Acute (3) SAUL (acute kidney injury): Status: Acute (4) End stage liver disease: Status: Acute Plan SAUL due to pre renal state in the setting of ETOH liver cirrhosis r/o hepatorenal syndrome hypervolemic hyponatremia in the setting of hepatic physiology Hyperkalemia REC check urine sodium, creatinine, osmolality. Restrict hypotonic fluids. furosemide 20 mg po daily Mary Lou to correct hyperkalemia. consider octreotide midodrine to maintain systolic blood pressure more than 90 mm of mercury. follow kidney function and electrolytes Time Spent With Patient Time: Total time managing care of this patient today ____ minutes. Procedures Date of Service Date of Service: 07/20/22
--- NOTE | 2022-07-20 14:56 | P.CNGI_ITS ---
History of Present Illness Data of Consult Service Date: 07/20/22 Primary Care Provider: Maren Carvajal MD HPI Reason for consult: cirrhosis 56 YM with alcoholic cirrhosis, [id number] diabetes mellitus, non compliance, peripheral neuropathy and poor mobility [place] [facility] with generalized fatigue/weakness, chills, decreased p.o. intake & SOB reported by girlfriend.? Pt denied fever, CP, nausea/vomiting/diarrhea, dysuria/hematuria Pt has ESLD related to ETOH abuse (reports 1 year soberiety), Patient lives at home with his GF.? Patient stated he usually gets paracentesis every 7-10 days and last LVP was on 05/21/22 and?10 L of clear yellowish fluid was removed. AF analysis was negative for SBP. Pt is followed by Dr Hutchison in the GI clinic.? On ER evaluation patient in acute renal failure with metabolic acidosis and hyperkalemia.? Patient was started on colloidal support for hypotension and broad-spectrum antibiotics and admitted to intensive care unit. 07/20/[address] SCAN SHOWED: Large amount of ascites. Cirrhosis.. Constipation. Question mild wall thickening of the proximal small bowel and transverse colon. Differential would include ileocolitis and changes related to patient's liver disease/low albumin. The distal esophagus is slightly distended and contains fluid. Small bilateral renal stones. Review of Systems Review of Systems: Constitutional: No Fever, + Chills Cardiovascular: No Chest Pain, + SOB, No Edema Respiratory: No Cough, No Sputum, No Wheezing, No Dyspnea Gastrointestinal: No Nausea, No Vomiting, No Diarrhea, No Constipation, No Abdominal pain, No Hematochezia, No Melena Genitourinary: No Dysuria, No Hematuria, No Flank Pain Musculoskeletal: No joint pain, No Myalgias, No Joint Swelling Skin: No Skin Lesions, No rash Neuro: + Weakness, No Dizziness, No Headache Yes all other systems are reviewed and are negative Constitutional: Constitutional: Reports as per HPI Neurologic: Reports confusion Psychiatric: Psychiatric: Reports confusion [facility] [place] Past Medical History Medical History SAUL (acute kidney injury) SAUL (acute kidney injury) Alcohol abuse Alcoholic cirrhosis Ascites Diabetes Elevated liver enzymes Hypertension Hyponatremia Liver cirrhosis Pressure ulcer Withdrawal seizures Family History Family History Other No family history of coronary artery disease Surgical History Surgical History No pertinent past surgical history Social History Social History Household Members: Significant Other Housing: Unknown / Unable to assess Do you presently have visiting nurse or other home services: No Unable to assess alcohol history related to: Unknown Alcohol intake: current Alcohol intake frequency: does not drink Alcohol type: beer and hard liquor Patient Tobacco Use Status: Never used Tobacco Tobacco use type: Smokeless Tobacco Second Hand Smoke Exposure: No Advance Directives Date on File: 03/18/22 service: Yes Current occupational status: disabled Meds Allergies Allergy/AdvReac Type Severity Reaction Status Date / Time acetaminophen [From PERCOCET] Allergy Severe AGITATION Verified 05/12/22 15:32 oxycodone [From PERCOCET] Allergy Severe AGITATION Verified 05/12/22 15:32 bee pollen [Bee Stings] Allergy Mild SWELLING Verified 05/12/22 15:32 lorazepam AdvReac Unknown AGITATION Verified 05/12/22 15:32 Active Medications: Current Medications Sodium Chloride (Ns) 1,500 mls @ 999 mls/hr IV .Q1H31M [facility] Stop: 07/20/22 16:00 Last Admin: 07/20/22 14:28 Dose: 999 mls/hr Albumin Human (Kedbumin 25 %) 100 mls @ 133.333 mls/hr IV Q1H [facility] Stop: 07/20/22 16:29 Sodium Bicarbonate 150 meq/ (Dextrose) 1,000 mls @ 50 mls/hr IV .Q20H [facility] Meropenem 1 gm/ Sodium (Chloride) 100 mls @ 200 mls/hr IV ONCE ONE Stop: 07/20/22 15:14 Midodrine (Midodrine Hcl 10 Mg Tablet) 10 mg PO TID [facility] Home Medications Medication Instructions Recorded Confirmed Last Taken Type insulin lispro 100 unit/mL 0 sliding scale dose subcut TIDAC 04/03/22 07/20/22 04/03/22 History subcutaneous pen melatonin 3 mg tablet 6 mg PO BEDTIME 05/20/22 07/20/22 05/19/22 History metformin 1,000 mg tablet 1 tab PO BIDAC 05/20/22 07/20/22 05/20/22 History omeprazole 20 mg capsule,delayed 20 mg PO DAILY@0630 05/20/22 07/20/22 05/20/22 History release midodrine 5 mg tablet 5 mg PO TID@0900,1300,1700 07/20/22 07/20/22 Unknown History Physical Exam Vital Signs: Vital Signs: Last Vital Signs Temp 95.0 F L 07/20/22 11:11 Pulse 106 H 07/20/22 14:55 Resp 22 H 07/20/22 14:55 BP 85/66 L 07/20/22 14:55 Pulse Ox 101 H 07/20/22 14:55 O2 Del Method Non-Rebreather Ma sk 07/20/22 14:55 O2 Flow Rate 15 07/20/22 14:55 BMI result Body Mass Index 23.5 Const: General: confusion, ill appearing and lethargic Nutritional Appearance: average body habitus Orientation/consciousness: confusion and lethargic Limitations: altered mental status HEENT: Head: Yes normal to inspection Ears: hearing grossly normal bilaterally Mouth: Normal oral and palatal mucosa present Eyes: Sclerae: sclerae normal Pupils: Equal, round and reactive pupils present Neck: Neck: Yes normal visual inspection Chest: Chest palpation & inspection: normal inspection of the chest Resp: Effort & Inspection: normal respiratory effort Auscultation: clear to auscultation bilaterally Cardio: Palpation: normal PMI Rate: regular rate Rhythm: regular rhythm Heart sounds: S1 normal heart sound present, S2 normal heart sound present and no murmurs GI: Inspection: Yes distended Palpation (GI): Soft to palpation and nontender Auscultation: normal bowel sounds Rectal Exam - Male: Yes deferred Skin: General skin exam: spider nevi and other (multiple bruises) Neuro: General: confusion Cranial nerves: Yes Equal, round and reactive pupils present Psych: Appearance: grossly normal Mental Status: mental status grossly normal Results Labs 07/20/22 12:09 07/20/22 12:09 Labs: Short CBC 07/20/22 Range/Units 12:09 WBC 11.6 H (4.8-10.8) X10*3/uL Hgb 8.6 L (14.0-18.0) g/dl Hct 24.2 L (42.0-52.0) % Plt Count 89 L D (160-400) X10*3/uL BMP 07/20/22 12:09 Sodium 128 L Potassium 5.7 H D Chloride 101 Carbon Dioxide 15 L BUN 106 H Creatinine 6.62 H* Calcium 9.4 D Liver Function 07/20/22 Range/Units 12:09 Total Bilirubin 3.7 H (0.0-1.0) mg/dL Direct Bilirubin 1.8 H (0.0-0.5) mg/dL AST 129 H (5-37) U/L ALT 59 H (0-40) U/L Alkaline Phosphatase 255 H (39-117) U/L Albumin 2.3 L (3.5-5.0) g/dL Urine 07/20/22 Range/Units 13:49 Urine Color Dark Yellow Urine Appearance Turbid Urine pH 5.0 (5.0-9.0) Ur Specific [place] 1.015 (1.005-1.025) Urine Protein Trace (Neg-Trace) mg/dL Urine Glucose (UA) Negative (Negative) mg/dL Assessment and Plan (1) Alcoholic cirrhosis: Status: Acute (2) SAUL (acute kidney injury): Status: Acute (3) Hepatorenal syndrome: Status: Acute Plan 56 YM with ESLD related to ETOH abuse complicated by portal hypertension, refractory ascites managed with large volume paracentesis, hepatic encephalopathy, DM, non compliance, peripheral neuropathy and poor mobility [place] [facility] [place] with generalized fatigue/weakness, chills, decreased p.o. intake & SOB reported by girlfriend.? Labs revealed anemia, thrombocytopenia, elevated LFTs, hyponatremia, acute renal failure with metabolic acidosis and hyperkalemia.? Patient was started on colloidal support for hypotension and broad-spectrum antibiotics and admitted to intensive care unit. SAUL likely related to hepatorenal syndrome versus pre-renal azotemia RECOMMENDATIONS: 1.? Agree with IV antibiotics, IVF and Colloids and PO Midodrine. 2.? Hold diuretics and can give IV albumin and check Urine sodium 3.? Resume PO Rifaximin and Lactulose with goal of 2-3 soft stools daily once patient's mental status improves. 4.? Nephrology consult 5.? Management of hyponatremia by holding diuretics and as per Nephrology 6. consider discussion on goals of care since prognosis is guarded. Time Spent With Patient Time: Total time managing care of this patient today ____ minutes. Procedures Date of Service Date of Service: 07/20/22
--- NOTE | 2022-07-20 15:02 | PC.NURSE ---
Envelope Addresser at bedside. Verbal order to d/c Azithromycin and start Meropenem instead. Additional IV access obtained to right AC, pending bicarb gtt from pharmacy.
[2022-07-20] MEDS: Albumin Human 25 % 100 ML 133.33 ML IV ×4 (15:10→23:25)
[2022-07-20] MEDS: Midodrine HCl 10 MG TABLET PO ×2 (15:16→22:01)
--- NOTE | 2022-07-20 15:50 | P.HPCC_ITS ---
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 On ER evaluation patient in acute renal failure with metabolic acidosis and hyperkalemia. Also noted to have hypertension with poor response to initial IV fluid resuscitation. Patient was started on colloidal support and broad- spectrum antibiotics and admitted to intensive care unit. Review of Systems Constitutional: Constitutional: Reports chills, Denies daytime sleepiness, Denies excessive sweating, Reports fatigue, Denies fever(s), Denies lethargy, Reports malaise, Denies night sweats, Denies snoring and Denies weight loss Eyes: Eyes: Denies blurry vision and Denies itchy eyes ENT: Denies nasal congestion, Denies post nasal drip, Denies sinus pain, Denies sinus pressure and Denies other ( Thrush) Cardiovascular: Cardiovascular: Denies chest pain, Denies pedal edema, Denies dyspnea, Denies orthopnea and Denies paroxysmal nocturnal dyspnea Respiratory: Respiratory: Denies cough, Denies hemoptysis, Denies excessive phlegm production, Denies dyspnea, Denies snoring and Denies wheezing Gastrointestinal: Gastrointestinal: Denies abdominal pain, Denies heartburn and Reports other ( Abdominal distension) Musculoskeletal: Musculoskeletal: Denies myalgias, Denies arthralgias and Denies joint swelling Integumentary/Breasts: Skin/Breast: Denies rash Neurologic: Denies memory loss and Denies seizure-like activity Psychiatric: Psychiatric: Denies abnormal sleep pattern, Denies anxiety and Denies memory loss Endocrine: Endocrine: Denies excessive sweating, Reports fatigue and Denies heat intolerance Hematologic/Lymphatic: Hematologic/Lymphatic: Denies easy bruising Allergic/Immunologic: Allergic/Immunologic: Denies itchy eyes, Denies seasonal rhinorrhea and Denies wheezing PMFSH Past Medical History Medical History SAUL (acute kidney injury) SAUL (acute kidney injury) Alcohol abuse Alcoholic cirrhosis Ascites Diabetes Elevated liver enzymes Hypertension Hyponatremia Liver cirrhosis Pressure ulcer Withdrawal seizures Family History Family History Other No family history of coronary artery disease Surgical History Surgical History No pertinent past surgical history Social History Social History Household Members: Significant Other Housing: House Do you presently have visiting nurse or other home services: No Unable to assess alcohol history related to: Refusing to respond Alcohol intake: current Alcohol intake frequency: does not drink Alcohol type: beer and hard liquor Patient Tobacco Use Status: Never used Tobacco Tobacco use type: Smokeless Tobacco Smoked in Last 30 Days: No Second Hand Smoke Exposure: No Use of substances other than those prescribed or required for medical reasons: No Advance Directives: Yes Advance Directives on File: Yes Advance Directives Date on File: 03/18/22 service: Yes Current occupational status: disabled Meds Allergies Allergy/AdvReac Type Severity Reaction Status Date / Time acetaminophen [From PERCOCET] Allergy Severe AGITATION Verified 05/12/22 15:32 oxycodone [From PERCOCET] Allergy Severe AGITATION Verified 05/12/22 15:32 bee pollen [Bee Stings] Allergy Mild SWELLING Verified 05/12/22 15:32 lorazepam AdvReac Unknown AGITATION Verified 05/12/22 15:32 Active Medications: Current Medications Sodium Chloride (Ns) 1,500 mls @ 999 mls/hr IV .Q1H31M [facility] Stop: 07/20/22 16:00 Last Admin: 07/20/22 14:28 Dose: 999 mls/hr Albumin Human (Kedbumin 25 %) 100 mls @ 133.333 mls/hr IV Q1H [facility] Stop: 07/20/22 16:29 Last Admin: 07/20/22 15:10 Dose: 133.33 mls/hr Sodium Bicarbonate 150 meq/ (Dextrose) 1,000 mls @ 50 mls/hr IV .Q20H [facility] Midodrine (Midodrine Hcl 10 Mg Tablet) 10 mg PO TID [facility] Last Admin: 07/20/22 15:16 Dose: 10 mg Home Medications Medication Instructions Recorded Confirmed Last Taken Type insulin lispro 100 unit/mL 0 sliding scale dose subcut TIDAC 04/03/22 07/20/22 04/03/22 History subcutaneous pen melatonin 3 mg tablet 6 mg PO BEDTIME 05/20/22 07/20/22 05/19/22 History metformin 1,000 mg tablet 1 tab PO BIDAC 05/20/22 07/20/22 05/20/22 History omeprazole 20 mg capsule,delayed 20 mg PO DAILY@0630 05/20/22 07/20/22 05/20/22 History release midodrine 5 mg tablet 5 mg PO TID@0900,1300,1700 07/20/22 07/20/22 Unknown His tory Physical Exam Vital Signs: Vital Signs: Last Vital Signs Temp 95.0 F L 07/20/22 11:11 Pulse 109 H 07/20/22 15:41 Resp 26 H 07/20/22 15:41 BP 99/58 L 07/20/22 15:41 Pulse Ox 90 L 07/20/22 15:41 O2 Del Method Oxymask 07/20/22 15:41 O2 Flow Rate 3 07/20/22 15:41 BMI result Body Mass Index 23.5 Const: General: no acute distress and lethargic ( arousable) Orientation/consciousness: lethargic ( arousable) HEENT: Head: Yes atraumatic Mouth: no other ( thrush) Throat: No postnasal drainage Eyes: General: appearance normal, both eyes and all related structures Sclerae: sclerae normal EOM: EOMs intact bilaterally Neck: Neck: Yes supple Lymphatic: no lymphadenopathy noted Resp: Effort & Inspection: tachypneic and no use of accessory muscles Auscultation: crackles ( bibasilar) Cardio: Rate: tachycardic Rhythm: regular rhythm Heart sounds: no gallops, no murmurs and no rubs GI: Inspection: Yes distended Palpation (GI): Soft to palpation and nontender Skin: General skin exam: other ( warm) Rashes: no rashes Extrem: General: No clubbing, No cyanosis and Yes edema ( 1+ bilateral) Results Labs 07/20/22 12:09 07/20/22 12:09 Labs: Laboratory Results - last 24 hr 07/20/22 07/20/22 07/20/22 12:09 12:09 12:09 MCV 101.7 H MCH 36.1 H MCHC 35.5 RDW 16.7 H Plt Count 89 L D MPV 10.6 Immature Gran % (Auto) 0.5 H Neut % (Auto) 90.8 H Lymph % (Auto) 4.7 L [place] % (Auto) 3.8 Eos % (Auto) 0.2 Baso % (Auto) 0.0 Lymph # (Auto) 0.6 L [place] # (Auto) 0.4 Eos # (Auto) 0.0 Baso # (Auto) 0.0 Abs Immat Gran (auto) 0.06 H Absolute Neuts (auto) 10.5 H Absolute Nucleated RBC 0.000 Nucleated RBC % (auto) 0.0 Smear Tech's Comments VERIFIED PT 29.9 H INR 2.5 H Anion Gap 18 Estim Creat Clear Calc 11.7 Estimated GFR 9 Random Glucose 128 H Lactic Acid Calcium 9.4 D Magnesium 1.9 Total Bilirubin 3.7 H Direct Bilirubin 1.8 H AST 129 H ALT 59 H Alkaline Phosphatase 255 H Ammonia Troponin I High Sens B-Natriuretic Peptide Total Protein 5.9 L Albumin 2.3 L Lipase 16 Urine Color Urine Appearance Urine pH Ur Specific [place] Urine Protein Urine Glucose (UA) Urine Ketones Urine Blood Urine Nitrite Ur Leukocyte Esterase Urine RBC Urine WBC Ur Squamous Epith Cells Urine Bacteria Hyaline Casts Urine Yeast COVID-19 (JESIKA) [facility] Son 07/20/22 07/20/22 07/20/22 12:09 12:09 12:09 MCV MCH MCHC RDW Plt Count MPV Immature Gran % (Auto) Neut % (Auto) Lymph % (Auto) [place] % (Auto) Eos % (Auto) Baso % (Auto) Lymph # (Auto) [place] # (Auto) Eos # (Auto) Baso # (Auto) Abs Immat Gran (auto) Absolute Neuts (auto) Absolute Nucleated RBC Nucleated RBC % (auto) Smear Tech's Comments PT INR Anion Gap Estim Creat Clear Calc Estimated GFR Random Glucose Lactic Acid 3.0 H* Calcium Magnesium Total Bilirubin Direct Bilirubin AST ALT Alkaline Phosphatase Ammonia 30 Troponin I High Sens 17.0 D B-Natriuretic Peptide Total Protein Albumin Lipase Urine Color Urine Appearance Urine pH Ur Specific [place] Urine Protein Urine Glucose (UA) Urine Ketones Urine Blood Urine Nitrite Ur Leukocyte Esterase Urine RBC Urine WBC Ur Squamous Epith Cells Urine Bacteria Hyaline Casts Urine Yeast COVID-19 (JESIKA) [facility] 07/20/22 07/20/22 07/20/22 12:09 12:09 13:49 MCV MCH MCHC RDW Plt Count MPV Immature Gran % (Auto) Neut % (Auto) Lymph % (Auto) [place] % (Auto) Eos % (Auto) Baso % (Auto) Lymph # (Auto) [place] # (Auto) Eos # (Auto) Baso # (Auto) Abs Immat Gran (auto) Absolute Neuts (auto) Absolute Nucleated RBC Nucleated RBC % (auto) Smear Tech's Comments PT INR Anion Gap Estim Creat Clear Calc Estimated GFR Random Glucose Lactic Acid Calcium Magnesium Total Bilirubin Direct Bilirubin AST ALT Alkaline Phosphatase Ammonia Troponin I High Sens B-Natriuretic Peptide 32 Total Protein Albumin Lipase Urine Color Dark Yellow Urine Appearance Turbid Urine pH 5.0 Ur Specific [place] 1.015 Urine Protein Trace Urine Glucose (UA) Negative Urine Ketones Trace Urine Blood Small (1+) H Urine Nitrite Negative Ur Leukocyte Esterase Large (3+) H Urine RBC >20 H Urine WBC >50 H Ur Squamous Epith Cells 0-2 Urine Bacteria None Seen Hyaline Casts 0-2 Urine Yeast Present COVID-19 (JESIKA) Negative COVID-19 Clin Com See Note Imaging Radiologist's Impressions: Impressions Chest X-Ray 07/20/22 12:20 IMPRESSION: Elevated right hemidiaphragm and subsegmental atelectasis or small infiltrate at the right lung base. Abdomen/Pelvis CT 07/20/22 12:54 IMPRESSION: Large amount of ascites. Cirrhosis.. Constipation. Question mild wall thickening of the proximal small bowel and transverse colon. Differential would include ileocolitis and changes related to patient's liver disease/low albumin. The distal esophagus is slightly distended and contains fluid. Small bilateral renal stones. Fleischner guidelines were followed. Assessment and Plan (1) Hepatorenal syndrome: Status: Acute (2) Alcoholic cirrhosis: Status: Acute (3) SAUL (acute kidney injury): Status: Acute (4) Hyperkalemia: Status: Acute (5) Coagulopathy: Status: Resolved Plan Assessment: 56-year-old gentleman with underlying alcoholic cirrhosis admitted with hypertension, hepatorenal syndrome, and possible sepsis Plan: Neuro: No acute issues. Cardiac: No acute issues. Pulmonary: acute hypoxic respiratory failure secondary to pulmonary edema on the background of hypoalbuminemia. Continue to titrate off supplemental oxygen as tolerated. Renal: Acute renal failure, likely secondary to hepatorenal syndrome. Non oliguric. Continue to monitor renal indices and urine output. Hyperkalemia, likely secondary to metabolic acidosis on the background of acute renal failure. Continue to monitor electrolytes. Endo: No acute issues. GI: Alcoholic cirrhosis, now with hepatorenal syndrome. Continue with colloidal support. ID: Possible sepsis. Cultures are pending. Empirically covered with broad- spectrum antibiotics. Heme/Onc: No acute issues. Psych: No acute issues. Miscellaneous: No acute issues. Prophylaxis: Pneumatic compression Diet: nothing by mouth Critical care time spent: 60 minutes Time Spent With Patient Time: Total time managing care of this patient today ____ minutes.
--- NOTE | 2022-07-20 16:02 | PM.SEPBOLA4 ---
Sepsis Bolus Exclusion Sepsis Bolus Exclusion Date of Occurrence: 07/20/22 This patient met severe sepsis criteria due to the following condition(s):: Hypotension In my clinical judgement the administration of 30 ml/kg of crystalloid would be detrimental to this patient due to the patient's following conditions:: Stage III or IV Chronic Kidney Disease (GFR<30) and Concern for fluid overload Replace the 30 mls/kg with (*zero amount not acceptable): *Note: One of the miguel must be documented Colloids amount given in mls:: 200 At a rate of (must be > 125 cchr):: 133
[2022-07-20 17:10] LABS: VBG Base Excess -13.4 mmol/L; VBG HCO3 11 mmol/L (22-26); VBG pCO2 24 mmHg; VBG pH 7.28 (7.32-7.43); VBG pO2 58 mmHg
[2022-07-20 17:12] LABS: Venous Blood Gas Refer to POC result
[2022-07-20 17:20] LABS: ~Lactic Acid-LAB USE ONLY 2.8 mmol/L (0.5-2.0)
[2022-07-20] MEDS: Sodium Bicarbonate 8.4% 150 MEQ in Dextrose 5 % 850 ML 50 MEQ IV (17:29)
[2022-07-20 19:01] LABS: Reflex Lactate? 2 Y
[2022-07-20] MEDS: Norepinephrine Bitartrate/D5W 8 MG/250 ML PLAST..BAG 6.38 MG IV (19:10)
[2022-07-20 19:24] LABS: Anion Gap 21 (12-20); Blood Urea Nitrogen 98 mg/dL (9-16); Carbon Dioxide 10 mmol/L (22-29); Chloride 106 mmol/L (96-108); Creatinine Clr Calc Pharmacy 12.8; Estimated Glomerular Filt Rate 10; Glucose Random 110 mg/dL (60-115); Potassium 4.9 mmol/L (3.3-5.1); Sodium 132 mmol/L (135-145)
[2022-07-20 19:43] LABS: ~Lactic Acid-LAB USE ONLY 1.9 mmol/L (0.5-2.0)
[2022-07-20] MEDS: Sodium Bicarbonate 8.4% 50 MEQ/50 ML SYRINGE 100 MEQ IVPUSH (19:55)
[2022-07-20] MEDS: Hydrocortisone Sod Succ/PF 100 MG VIAL IVPUSH (22:54)
[2022-07-20] MEDS: Metoprolol Tartrate 5 MG/5 ML VIAL IVPUSH (23:21)
[2022-07-21] VITALS (45 sets, daily range): BP systolic 86–117; BP diastolic 46–68; PULSE 94–113; RESP 17–28; TEMP 36.1–37.2; O2SAT 94–100; BMI 24.4
[2022-07-21 01:32] LABS: Alanine Aminotransferase 32 U/L (0-40); Albumin Level 3.6 g/dL (3.5-5.0); Alkaline Phosphatase 151 U/L (39-117); Anion Gap 19 (12-20); Aspartate Amino Transferase 73 U/L (5-37); Bilirubin Total 3.3 mg/dL (0.0-1.0); Blood Urea Nitrogen 100 mg/dL (9-16); Calcium 9.5 mg/dL (8.4-10.2); Carbon Dioxide 16 mmol/L (22-29); Chloride 105 mmol/L (96-108); Creatinine Clr Calc Pharmacy 13.8; Estimated Glomerular Filt Rate 11; Glucose Random 125 mg/dL (60-115); Potassium 4.4 mmol/L (3.3-5.1); Sodium 136 mmol/L (135-145); Total Protein 5.5 g/dL (6.5-8.0)
[2022-07-21] MEDS: Norepinephrine Bitartrate/D5W 8 MG/250 ML PLAST..BAG 30.62 MG IV (03:15)
--- NOTE | 2022-07-21 04:38 | PC.NURSE ---
Addendum entered by Gallito Cummins RN 07/21/22 06:25: AM H/H= 5.8/16.8 PLATELETS= 57 INR=4.0 ICU PA AWARE....STAT TYPE AND SCREEN ORDERED...FOR PRBC X2 AND FFP X2...PER PA TO HOLD BICARB DRIP WHEN BLOOD PRODUCTS AVAILABLE...? CENTRAL LINE ACCESS AFTER FFP/INR IMPROVEMENT Addendum entered by Gallito Cummins RN 07/21/22 04:41: BICARB DRIP 50 CC/HR...[place] YELLOW URINE 35-40 CC/HR...RECTAL TUBE EXPELLED...INCONTINANT MULTIPLE LOOSE BROWN STOOL...MOUTH REMAINS WITH OLD DRIED BLOOD RESISTANT TO ORAL CARE....SLOW NOSEBLEED STARTED OVERNIGHT.....ICU PA AWARE...AM PT/INR ORDERED...NO VITAMIN K AT PRESENT PER PA..NOSECLIPS APPLIED TO NARES PER PA...REMAINS WITH DIFFICULT IV ACCESS AND/OR FOR PHLEBOTOMY DRAWS...LEVOPHED DRIP TO LEFT AC #20 ANGIO...SITE REMAINS WITH EXCELLENT BLOOD RETURN...MAP 67-80 WITH LEVOPHED 0.24 MCG/KG/MIN,,,WARMING BLANKET OFF AT HS FOR TEMP 98.8..DENIES NAUSEA Original Note: CARE ASSUMED 23:15..AWAKE..ORIENTED TO PERSON ONLY...ADAMES...MULTIPLE ABRASIONS/BRUISES TO TORSO AND EXTREMETIES...LEVOPHED DRIP PER MAY...MONITOR SINUS TACH HR 120'S-130'S AT HS.....MONITOR WITH NON-SUSTAINED RUN V.TACH.....MAP 70-74...LOPRESSOR 5MG IV X1 PER ICU PA WITH DECREASED HR TO 106-110..NO FURTHER ECTOPY
[2022-07-21 05:11] LABS: VBG HCO3 18 mmol/L (22-26); VBG pCO2 22 mmHg; VBG pH 7.51 (7.32-7.43); VBG pO2 43 mmHg
[2022-07-21 05:17] LABS: Venous Blood Gas Refer to POC result
[2022-07-21 05:43] LABS: Basophils Percent Auto 0.1 % (0-2); Imm Gran Abs Auto 0.05 X10*3/uL (0.00-0.03); Imm Gran Pct Auto 0.5 % (0.0-0.4); Lymphocytes Absolute Auto 0.2 X10*3/uL (1.2-4.9); Lymphocytes Percent Auto 2.1 % (20-40); MANUAL DIFF FLAG SCAN; Mean Corpuscular HGB Conc 34.5 g/dl (31.0-36.0); Mean Corpuscular Hemoglobin 35.4 pg (27.0-33.0); Mean Corpuscular Volume 102.4 fL (80.0-98.0); Mean Platelet Volume 10.8 fL (9.4-12.4); Monocytes Absolute Auto 0.2 X10*3/uL (0.1-1.2); Monocytes Percent Auto 1.7 % (2-11); Neutrophils Absolute Auto 10.2 x10*3/uL (2.0-8.3); Neutrophils Percent Auto 95.6 % (45-73); Red Blood Count 1.64 X10*6/uL (4.60-5.80); Red Cell Distribution Width 16.5 % (11.0-16.0); SCAN SMEAR FLAG 1; White Blood Count 10.7 X10*3/uL (4.8-10.8)
[2022-07-21 05:47] LABS: Platelet Count 57 X10*3/uL (160-400)
[2022-07-21 05:48] LABS: Prothrombin Time 48.4 SEC (10.0-13.1)
[2022-07-21 05:49] LABS: Hematocrit 16.8 % (42.0-52.0); Hemoglobin 5.8 g/dl (14.0-18.0)
[2022-07-21 05:51] LABS: Sodium Urine Random < 20.0 mmol/L
[2022-07-21 06:03] LABS: SLIDE REVIEW VERIFIED
[2022-07-21 06:18] LABS: Alanine Aminotransferase 37 U/L (0-40); Albumin Level 3.5 g/dL (3.5-5.0); Alkaline Phosphatase 179 U/L (39-117); Anion Gap 20 (12-20); Aspartate Amino Transferase 83 U/L (5-37); Bilirubin Total 3.8 mg/dL (0.0-1.0); Blood Urea Nitrogen 101 mg/dL (9-16); Calcium 9.3 mg/dL (8.4-10.2); Carbon Dioxide 15 mmol/L (22-29); Chloride 105 mmol/L (96-108); Creatinine Clr Calc Pharmacy 14.2; Estimated Glomerular Filt Rate 11; Glucose Random 172 mg/dL (60-115); Magnesium 1.8 mg/dL (1.6-2.6); Phosphorus 3.3 mg/dL (2.7-4.5); Potassium 4.4 mmol/L (3.3-5.1); Sodium 136 mmol/L (135-145); Total Protein 5.5 g/dL (6.5-8.0)
[2022-07-21] MEDS: Midodrine HCl 10 MG TABLET PO ×3 (09:34→22:06)
--- NOTE | 2022-07-21 10:11 | MHC.CM.PN ---
Pt admitted with dx: hepatorenial syndrome, he came from home w/ VNA services ([facility]), pt used a W/C. D/C plan pending further evaluation/care, but tentatively resumption of services upon D/C. Pts significant other Deann Holt ([phone]) is HCP per pt. This CM called and spoke with Deann and requested she bring in a copy of the HCP; she stated she will today. DALILA/Swapna to transport pt. PCP: MD Maren Muir. Covid Vax: x 4 Moderna.
--- NOTE | 2022-07-21 10:13 | MHC.CLN ---
RE: CONSULT PT WITH 16% SIGNIFICANT WT LOSS X 6 MONTHS, HOWEVER PT WITH ASCITES AND WT FLUCTUATIONS EXPECTED. PT WITH LARGE DISTENDED ROUND ABDOMEN WITH MULTIPLE HOSPITAL ADMISSION RE: CIRRHOSIS/ASCITES PT CURRENTLY NPO WHEN DIET ADVANCES; RECOMMEND ADDING ENSURE CLEAR TID TO INCREASE KCALS SUPP TO PROVIDE 720KCALS, 24G PROTEIN MONITOR FOR DIET ADVANCEMENT SEE ALSO FULL CLINICAL NUTRITION ASSESSMENT
--- NOTE | 2022-07-21 13:27 | P.PNCC_ITS ---
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 On ER evaluation patient in acute renal failure with metabolic acidosis and hyperkalemia. Also noted to have hypertension with poor response to initial IV fluid resuscitation. Patient was started on colloidal support and broad- spectrum antibiotics and admitted to intensive care unit. Overnight with subacute anemia, likely secondary to slow upper GI bleed. Critical Care Time (minutes): 45 Physical Exam Vital Signs: Vital Signs: Last Vital Signs Temp 97.5 F 07/21/22 12:49 Pulse 103 H 07/21/22 13:22 Resp 21 H 07/21/22 13:00 BP 109/55 L 07/21/22 13:22 Pulse Ox 99 07/21/22 13:00 O2 Del Method Room Air 07/21/22 13:00 O2 Flow Rate 3 07/21/22 06:00 Oxygen Flow Rate 3 07/20/22 14:43 BMI result Body Mass Index 24.4 Const: General: no acute distress, alert and awake Eyes: General: appearance normal, both eyes and all related structures Sclerae: sclerae normal EOM: EOMs intact bilaterally Neck: Neck: Yes supple Lymphatic: no lymphadenopathy noted Resp: Effort & Inspection: normal respiratory effort and no use of accessory muscles Auscultation: crackles (Bilateral) Cardio: Rate: tachycardic Rhythm: regular rhythm Heart sounds: no gallops, no murmurs and no rubs GI: Inspection: Yes distended Palpation (GI): Soft to palpation and nontender Skin: General skin exam: other ( warm) Rashes: no rashes Extrem: General: No clubbing, No cyanosis and Yes edema (1+ bilateral) Objective Data Labs 07/21/22 05:06 07/21/22 05:06 Labs: Laboratory Results - last 24 hr 07/20/22 07/20/22 07/20/22 13:49 16:58 17:03 WBC RBC Hgb Hct MCV MCH MCHC RDW Plt Count MPV Immature Gran % (Auto) Neut % (Auto) Lymph % (Auto) [place] % (Auto) Eos % (Auto) Baso % (Auto) Lymph # (Auto) [place] # (Auto) Eos # (Auto) Baso # (Auto) Abs Immat Gran (auto) Absolute Neuts (auto) Absolute Nucleated RBC Nucleated RBC % (auto) Smear Tech's Comments PT INR VBG pH 7.28 L VBG pCO2 24 VBG pO2 58 VBG HCO3 11 L VBG O2 Saturation 82.0 VBG Base Excess -13.4 Sodium Potassium Chloride Carbon Dioxide Anion Gap BUN Creatinine Estim Creat Clear Calc Estimated GFR Random Glucose Lactic Acid F/U @ 2Hr 2.8 H* Lactic Acid F/U @ 4Hr Calcium Phosphorus Magnesium Total Bilirubin AST ALT Alkaline Phosphatase Total Protein Albumin Urine Color Dark Yellow Urine Appearance Turbid Urine pH 5.0 Ur Specific [place] 1.015 Urine Protein Trace Urine Glucose (UA) Negative Urine Ketones Trace Urine Blood Small (1+) H Urine Nitrite Negative Ur Leukocyte Esterase Large (3+) H Urine RBC >20 H Urine WBC >50 H Ur Squamous Epith Cells 0-2 Urine Bacteria None Seen Hyaline Casts 0-2 Urine Yeast Present Ur Random Sodium Blood Type Antibody Screen Crossmatch 07/20/22 07/20/22 07/21/22 18:20 19:24 00:52 WBC RBC Hgb Hct MCV MCH MCHC RDW Plt Count MPV Immature Gran % (Auto) Neut % (Auto) Lymph % (Auto) [place] % (Auto) Eos % (Auto) Baso % (Auto) Lymph # (Auto) [place] # (Auto) Eos # (Auto) Baso # (Auto) Abs Immat Gran (auto) Absolute Neuts (auto) Absolute Nucleated RBC Nucleated RBC % (auto) Smear Tech's Comments PT INR VBG pH VBG pCO2 VBG pO2 VBG HCO3 VBG O2 Saturation VBG Base Excess Sodium 132 L 136 Potassium 4.9 4.4 Chloride 106 105 Carbon Dioxide 10 L* D 16 L Anion Gap 21 H 19 BUN 98 H 100 H Creatinine 6.06 H* 5.62 H* Estim Creat Clear Calc 12.8 13.8 Estimated GFR 10 11 Random Glucose 110 125 H Lactic Acid F/U @ 2Hr Lactic Acid F/U @ 4Hr 1.9 Calcium 9.0 9.5 Phosphorus Magnesium Total Bilirubin 3.3 H AST 73 H ALT 32 Alkaline Phosphatase 151 H Total Protein 5.5 L Albumin 3.6 Urine Color Urine Appearance Urine pH Ur Specific [place] Urine Protein Urine Glucose (UA) Urine Ketones Urine Blood Urine Nitrite Ur Leukocyte Esterase Urine RBC Urine WBC Ur Squamous Epith Cells Urine Bacteria Hyaline Casts Urine Yeast Ur Random Sodium Blood Type Antibody Screen Crossmatch 07/21/22 07/21/22 07/21/22 04:50 05:02 05:06 WBC 10.7 RBC 1.64 L D Hgb 5.8 L* D Hct 16.8 L* D MCV 102.4 H MCH 35.4 H MCHC 34.5 RDW 16.5 H Plt Count 57 L D MPV 10.8 Immature Gran % (Auto) 0.5 H Neut % (Auto) 95.6 H Lymph % (Auto) 2.1 L [place] % (Auto) 1.7 L Eos % (Auto) 0.0 Baso % (Auto) 0.1 Lymph # (Auto) 0.2 L [place] # (Auto) 0.2 Eos # (Auto) 0.0 Baso # (Auto) 0.0 Abs Immat Gran (auto) 0.05 H Absolute Neuts (auto) 10.2 H Absolute Nucleated RBC 0.000 Nucleated RBC % (auto) 0.0 Smear Tech's Comments VERIFIED PT INR VBG pH 7.51 H VBG pCO2 22 VBG pO2 43 VBG HCO3 18 L VBG O2 Saturation 75.0 VBG Base Excess -4.0 Sodium Potassium Chloride Carbon Dioxide Anion Gap BUN Creatinine Estim Creat Clear Calc Estimated GFR Random Glucose Lactic Acid F/U @ 2Hr Lactic Acid F/U @ 4Hr Calcium Phosphorus Magnesium Total Bilirubin AST ALT Alkaline Phosphatase Total Protein Albumin Urine Color Urine Appearance Urine pH Ur Specific [place] Urine Protein Urine Glucose (UA) Urine Ketones Urine Blood Urine Nitrite Ur Leukocyte Esterase Urine RBC Urine WBC Ur Squamous Epith Cells Urine Bacteria Hyaline Casts Urine Yeast Ur Random Sodium < 20.0 Blood Type Antibody Screen Crossmatch 07/21/22 07/21/22 07/21/22 05:06 05:06 06:42 WBC RBC Hgb Hct MCV MCH MCHC RDW Plt Count MPV Immature Gran % (Auto) Neut % (Auto) Lymph % (Auto) [place] % (Auto) Eos % (Auto) Baso % (Auto) Lymph # (Auto) [place] # (Auto) Eos # (Auto) Baso # (Auto) Abs Immat Gran (auto) Absolute Neuts (auto) Absolute Nucleated RBC Nucleated RBC % (auto) Smear Tech's Comments PT 48.4 H INR 4.0 H VBG pH VBG pCO2 VBG pO2 VBG HCO3 VBG O2 Saturation VBG Base Excess Sodium 136 Potassium 4.4 Chloride 105 Carbon Dioxide 15 L Anion Gap 20 BUN 101 H Creatinine 5.48 H* Estim Creat Clear Calc 14.2 Estimated GFR 11 Random Glucose 172 H Lactic Acid F/U @ 2Hr Lactic Acid F/U @ 4Hr Calcium 9.3 Phosphorus 3.3 Magnesium 1.8 Total Bilirubin 3.8 H AST 83 H ALT 37 Alkaline Phosphatase 179 H Total Protein 5.5 L Albumin 3.5 Urine Color Urine Appearance Urine pH Ur Specific [place] Urine Protein Urine Glucose (UA) Urine Ketones Urine Blood Urine Nitrite Ur Leukocyte Esterase Urine RBC Urine WBC Ur Squamous Epith Cells Urine Bacteria Hyaline Casts Urine Yeast Ur Random Sodium Blood Type O Negative Antibody Screen NEGATIVE Crossmatch See Detail Microbiology Microbiology Results: Microbiology 07/20/22 Unknown Urine clean catch - Urine nascimento top Urine Culture - Preliminary Yeast Progress Note: A&P Assessment and plan (1) Hepatorenal syndrome: Status: Acute (2) Alcoholic cirrhosis: Status: Acute (3) SAUL (acute kidney injury): Status: Acute (4) End stage liver disease: Status: Acute Plan Assessment: 56-year-old gentleman with underlying alcoholic cirrhosis admitted with hypertension, hepatorenal syndrome, and possible sepsis Plan: Neuro: No acute issues. Cardiac: Continue to titrate off pressors as tolerated. Pulmonary: No acute issues. Renal: Acute renal failure, likely secondary to hepatorenal syndrome, improving. Non oliguric. Continue to monitor renal indices and urine output. Hyperkalemia, likely secondary to metabolic acidosis on the background of acute renal failure, resolved. Continue to monitor electrolytes. Endo: No acute issues. GI: Alcoholic cirrhosis, now with hepatorenal syndrome. Continue with colloidal support. ID: Possible sepsis. Cultures are pending. Empirically covered with broad- spectrum antibiotics. Heme/Onc: No acute issues. Psych: No acute issues. Miscellaneous: No acute issues. Prophylaxis: Pneumatic compression Diet: nothing by mouth Critical care time spent: 45 minutes Quality Stroke Does the patient have a stroke diagnosis?: No VTE Prior VTE?: No VTE Risk Level:: Medical - moderate - high VTE Device Contraindication: N/A - Device Ordered VTE Drug Contraindication: Treatment Not Indicated
[2022-07-21] MEDS: Pantoprazole Sodium 40 MG/10 ML VIAL IVPUSH (15:56)
[2022-07-21] MEDS: Phytonadione (Vit K1) 10 MG in 0.9 % Sodium Chloride 50 ML 51 MG IV (16:14)
[2022-07-21 22:24] LABS: MANUAL DIFF FLAG NO
[2022-07-21 22:30] LABS: Eosinophils Percent Auto 0.1 % (0-4); Hemoglobin 7.4 g/dl (14.0-18.0); Imm Gran Abs Auto 0.04 X10*3/uL (0.00-0.03); Imm Gran Pct Auto 0.5 % (0.0-0.4); Lymphocytes Absolute Auto 0.4 X10*3/uL (1.2-4.9); Lymphocytes Percent Auto 4.5 % (20-40); Mean Corpuscular HGB Conc 35.2 g/dl (31.0-36.0); Mean Corpuscular Hemoglobin 35.1 pg (27.0-33.0); Mean Corpuscular Volume 99.5 fL (80.0-98.0); Mean Platelet Volume 10.2 fL (9.4-12.4); Monocytes Absolute Auto 0.5 X10*3/uL (0.1-1.2); Monocytes Percent Auto 5.3 % (2-11); Neutrophils Absolute Auto 7.6 x10*3/uL (2.0-8.3); Neutrophils Percent Auto 89.6 % (45-73); Red Blood Count 2.11 X10*6/uL (4.60-5.80); Red Cell Distribution Width 15.9 % (11.0-16.0); White Blood Count 8.5 X10*3/uL (4.8-10.8)
[2022-07-21 22:49] LABS: Platelet Count 29 X10*3/uL (160-400)
[2022-07-22] VITALS (28 sets, daily range): BP systolic 94–116; BP diastolic 48–72; PULSE 90–100; RESP 13–28; TEMP 36.1–37.1; O2SAT 90–100; BMI 25.0
[2022-07-22 05:24] LABS: MANUAL DIFF FLAG NO; VBG Base Excess -3.2 mmol/L; VBG HCO3 19 mmol/L (22-26); VBG pCO2 24 mmHg; VBG pH 7.49 (7.32-7.43); VBG pO2 56 mmHg
[2022-07-22 05:36] LABS: Basophils Percent Auto 0.1 % (0-2); Hematocrit 21.1 % (42.0-52.0); Hemoglobin 7.6 g/dl (14.0-18.0); Imm Gran Abs Auto 0.05 X10*3/uL (0.00-0.03); Imm Gran Pct Auto 0.6 % (0.0-0.4); Lymphocytes Absolute Auto 0.5 X10*3/uL (1.2-4.9); Lymphocytes Percent Auto 5.7 % (20-40); Mean Corpuscular Hemoglobin 35.7 pg (27.0-33.0); Mean Corpuscular Volume 99.1 fL (80.0-98.0); Mean Platelet Volume 10.5 fL (9.4-12.4); Monocytes Absolute Auto 0.4 X10*3/uL (0.1-1.2); Neutrophils Absolute Auto 7.7 x10*3/uL (2.0-8.3); Neutrophils Percent Auto 88.6 % (45-73); Platelet Count 37 X10*3/uL (160-400); Red Blood Count 2.13 X10*6/uL (4.60-5.80); Red Cell Distribution Width 16.9 % (11.0-16.0); White Blood Count 8.7 X10*3/uL (4.8-10.8)
[2022-07-22 05:40] LABS: INTERNATIONAL NORM RATIO 2.9 (0.9-1.1); Prothrombin Time 34.7 SEC (10.0-13.1)
[2022-07-22 05:49] LABS: Alanine Aminotransferase 35 U/L (0-40); Albumin Level 3.1 g/dL (3.5-5.0); Alkaline Phosphatase 175 U/L (39-117); Anion Gap 19 (12-20); Aspartate Amino Transferase 77 U/L (5-37); Bilirubin Total 14.1 mg/dL (0.0-1.0); Blood Urea Nitrogen 112 mg/dL (9-16); Calcium 9.2 mg/dL (8.4-10.2); Carbon Dioxide 20 mmol/L (22-29); Chloride 107 mmol/L (96-108); Estimated Glomerular Filt Rate 12; Glucose Random 131 mg/dL (60-115); Magnesium 1.7 mg/dL (1.6-2.6); Potassium 3.5 mmol/L (3.3-5.1); Sodium 142 mmol/L (135-145); Total Protein 5.1 g/dL (6.5-8.0)
[2022-07-22] MEDS: Pantoprazole Sodium 40 MG/10 ML VIAL IVPUSH ×2 (06:22→16:20)
[2022-07-22] MEDS: Midodrine HCl 10 MG TABLET PO ×3 (08:27→20:00)
[2022-07-22 08:34] LABS: Venous Blood Gas Refer to POC result
--- NOTE | 2022-07-22 09:53 | MHC.CLN ---
F/U PT IS DAY 2 NPO WHEN DIET ADVANCES; RECOMMEND 2000DM 2GM NA DIET AND ADDING ENSURE CLEAR TID TO INCREASE KCALS SUPP TO PROVIDE 720KCALS, 24G PROTEIN CONTINUE TO MONITOR FOR DIET ADVANCEMENT
--- NOTE | 2022-07-22 09:57 | P.PNNP_ITS ---
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 On ER evaluation patient in acute renal failure with metabolic acidosis and hyperkalemia. Also noted to have hypertension with poor response to initial IV fluid resuscitation. Patient was started on colloidal support and broad- spectrum antibiotics and admitted to intensive care unit. Overnight with subacute anemia, likely secondary to slow upper GI bleed. Physical Exam Vital Signs: Vital Signs: Last Vital Signs Temp 98.8 F 07/22/22 08:00 Pulse 95 07/22/22 09:00 Resp 28 H 07/22/22 09:00 BP 112/65 07/22/22 09:00 Pulse Ox 99 07/22/22 09:00 O2 Del Method Room Air 07/22/22 09:00 O2 Flow Rate 3 07/21/22 06:00 Oxygen Flow Rate 3 07/20/22 14:43 BMI result Body Mass Index 25.0 Const: General: cooperative, healthy appearing, no acute distress, alert, awake and ill appearing Limitations: no limitations and altered mental status Neck: Neck: Yes normal visual inspection, Yes no meningeal signs and Yes supple Lymphatic: no lymphadenopathy noted Resp: Auscultation: clear to auscultation bilaterally and crackles (Bilateral) Cardio: Palpation: normal PMI Rate: regular rate and tachycardic Rhythm: regular rhythm Heart sounds: S1 normal heart sound present, S2 normal heart sound present, no gallops, no murmurs and no rubs GI: Inspection: Yes normal to inspection and Yes distended Palpation (GI): Soft to palpation, nontender, no guarding, not rigid and Ascites present Auscultation: normal bowel sounds Skin: General skin exam: spider nevi and other ( warm) Rashes: no rashes Wounds: no wounds Neuro: General: tone normal, moves all extremities and no meningeal signs Gait exam (Neuro): Normal gait present Extrem: General: Yes normal to inspection, Yes no pedal edema, No clubbing, No cyanosis and Yes edema (1+ bilateral) Objective Data Labs 07/22/22 05:15 07/22/22 05:15 Labs: Laboratory Results - last 24 hr 07/21/22 07/21/22 07/22/22 06:42 21:48 05:15 WBC 8.5 8.7 RBC 2.11 L D 2.13 L Hgb 7.4 L D 7.6 L Hct 21.0 L* D 21.1 L MCV 99.5 H 99.1 H MCH 35.1 H 35.7 H MCHC 35.2 36.0 RDW 15.9 16.9 H Plt Count 29 L D 37 L D MPV 10.2 10.5 Immature Gran % (Auto) 0.5 H 0.6 H Neut % (Auto) 89.6 H 88.6 H Lymph % (Auto) 4.5 L 5.7 L [place] % (Auto) 5.3 5.0 Eos % (Auto) 0.1 0.0 Baso % (Auto) 0.0 0.1 Lymph # (Auto) 0.4 L 0.5 L [place] # (Auto) 0.5 0.4 Eos # (Auto) 0.0 0.0 Baso # (Auto) 0.0 0.0 Abs Immat Gran (auto) 0.04 H 0.05 H Absolute Neuts (auto) 7.6 7.7 Absolute Nucleated RBC 0.000 0.000 Nucleated RBC % (auto) 0.0 0.0 PT INR VBG pH VBG pCO2 VBG pO2 VBG HCO3 VBG O2 Saturation VBG Base Excess Sodium Potassium Chloride Carbon Dioxide Anion Gap BUN Creatinine Estim Creat Clear Calc Estimated GFR Random Glucose Calcium Phosphorus Magnesium Total Bilirubin AST ALT Alkaline Phosphatase Total Protein Albumin Blood Type O Negative Antibody Screen NEGATIVE Crossmatch See Detail 07/22/22 07/22/22 07/22/22 05:15 05:15 05:15 WBC RBC Hgb Hct MCV MCH MCHC RDW Plt Count MPV Immature Gran % (Auto) Neut % (Auto) Lymph % (Auto) [place] % (Auto) Eos % (Auto) Baso % (Auto) Lymph # (Auto) [place] # (Auto) Eos # (Auto) Baso # (Auto) Abs Immat Gran (auto) Absolute Neuts (auto) Absolute Nucleated RBC Nucleated RBC % (auto) PT 34.7 H INR 2.9 H VBG pH 7.49 H VBG pCO2 24 VBG pO2 56 VBG HCO3 19 L VBG O2 Saturation 90.0 VBG Base Excess -3.2 Sodium 142 Potassium 3.5 D Chloride 107 Carbon Dioxide 20 L Anion Gap 19 BUN 112 H Creatinine 5.20 H* Estim Creat Clear Calc 15.0 Estimated GFR 12 Random Glucose 131 H Calcium 9.2 Phosphorus 4.0 Magnesium 1.7 Total Bilirubin 14.1 H AST 77 H ALT 35 Alkaline Phosphatase 175 H Total Protein 5.1 L Albumin 3.1 L Blood Type Antibody Screen Crossmatch Microbiology Microbiology Results: Microbiology 07/20/22 12:10 Blood - Venous Blood Culture - Preliminary No growth after 24 hours. 07/20/22 12:10 Blood - Venous Blood Culture - Preliminary No growth after 24 hours. 07/20/22 Unknown Urine clean catch - Urine nascimento top Urine Culture - Preliminary Yeast Procedures Date of Service Date of Service: 07/22/22 Assessment & Plan Assessment and plan (1) Hepatorenal syndrome: Status: Acute (2) Alcoholic cirrhosis: Status: Acute (3) SAUL (acute kidney injury): Status: Acute (4) End stage liver disease: Status: Acute Plan SAUL due to pre renal state in the setting of ETOH liver cirrhosis Advanced liver disease r/o hepatorenal syndrome hypervolemic hyponatremia in the setting of hepatic physiology - resolving Large ascites REC consider paracentesis Restrict hypotonic fluids. furosemide 20 mg po daily Maddiewv to correct hyperkalemia. consider octreotide midodrine to maintain systolic blood pressure more than 90 mm of mercury. follow kidney function and electrolytes Time Spent With Patient Time: Total time managing care of this patient today ____ minutes. Progress Note: Quality Stroke Does the patient have a stroke diagnosis?: No
[2022-07-22 11:36] LABS: Ammonia 25 umol/L (13-55)
[2022-07-22] MEDS: Thiamine HCL 100 MG in 0.9 % Sodium Chloride 100 ML 202 MG IV (12:28)
[2022-07-22] MEDS: Octreotide Acetate 500 MCG in 0.9 % Sodium Chloride 500 ML 50.1 MCG IVCONT ×2 (12:34→21:20)
--- NOTE | 2022-07-22 15:52 | PM.CCPN ---
Subjective Subjective Date of Service: 07/22/22 Interval History: 56-year-old chronic alcoholic with alcoholic cirrhosis and evidence of portal hypertension as well as hepatic failure who has been here before the in for removal of some of the S ascites volume and in of this time came in with increasing weakness noted to be pancytopenic with very significant hyperbilirubinemia but no breakdown as to whether not it is direct or indirect is received 2 units of red cell transfusion and 1 unit of platelets and platelet response was up to 37,000 from the mid 20s but with that degree of hyperbilirubinemia for now I can I need to rule out interim hepatic vein thrombosis in or possible extrahepatic biliary obstruction so the the the ultrasound of the right upper quadrant is pending and the patient has already been on empiric meropenem no tap her culture of the ascitic fluid was was performed so at this point we must reside with that and he is very lethargic very hesitant to answer clearly an element of confusion but he still states where he is and he states his name and his date of and that is been unchanged for 2 days according to the nurses caring for him for that length of time according with a stable degree of tremulousness and possible some myoclonic jerking but his ammonia level is not now elevated does not have a lactic acidosis but does of course have an underlying coagulopathy Critical Care Time (minutes): 45 Physical Exam Vital Signs: Vital Signs: Last Vital Signs Temp 98.8 F 07/22/22 08:00 Pulse 96 07/22/22 14:00 Resp 21 H 07/22/22 14:00 BP 98/61 07/22/22 14:00 Pulse Ox 95 07/22/22 14:00 O2 Del Method Room Air 07/22/22 14:00 O2 Flow Rate 3 07/21/22 06:00 Oxygen Flow Rate 3 07/20/22 14:43 BMI result Body Mass Index 25.0 The patient wound although lethargic and slow to respond was oriented to person and place and knew his date He has and fidgety and mildly tremulous with some intermittent myoclonus Bedside echo shows globally normal left ventricular systolic wall motion with normal right ventricle and no primary valve or pericardial disease just obviously significant ascites but could not evaluate inferior vena cava Lungs without adventitious sounds and clear by x-ray Abdomen somewhat distended but nontender no rebound no palpable organomegaly Objective Data Labs 07/22/22 05:15 07/22/22 05:15 Labs: Laboratory Results - last 24 hr 07/21/22 07/21/22 07/22/22 06:42 21:48 05:15 WBC 8.5 8.7 RBC 2.11 L D 2.13 L Hgb 7.4 L D 7.6 L Hct 21.0 L* D 21.1 L MCV 99.5 H 99.1 H MCH 35.1 H 35.7 H MCHC 35.2 36.0 RDW 15.9 16.9 H Plt Count 29 L D 37 L D MPV 10.2 10.5 Immature Gran % (Auto) 0.5 H 0.6 H Neut % (Auto) 89.6 H 88.6 H Lymph % (Auto) 4.5 L 5.7 L [place] % (Auto) 5.3 5.0 Eos % (Auto) 0.1 0.0 Baso % (Auto) 0.0 0.1 Lymph # (Auto) 0.4 L 0.5 L [place] # (Auto) 0.5 0.4 Eos # (Auto) 0.0 0.0 Baso # (Auto) 0.0 0.0 Abs Immat Gran (auto) 0.04 H 0.05 H Absolute Neuts (auto) 7.6 7.7 Absolute Nucleated RBC 0.000 0.000 Nucleated RBC % (auto) 0.0 0.0 PT INR VBG pH VBG pCO2 VBG pO2 VBG HCO3 VBG O2 Saturation VBG Base Excess Sodium Potassium Chloride Carbon Dioxide Anion Gap BUN Creatinine Estim Creat Clear Calc Estimated GFR Random Glucose Calcium Phosphorus Magnesium Total Bilirubin AST ALT Alkaline Phosphatase Ammonia Total Protein Albumin Blood Type O Negative Antibody Screen NEGATIVE Crossmatch See Detail 07/22/22 07/22/22 07/22/22 05:15 05:15 05:15 WBC RBC Hgb Hct MCV MCH MCHC RDW Plt Count MPV Immature Gran % (Auto) Neut % (Auto) Lymph % (Auto) [place] % (Auto) Eos % (Auto) Baso % (Auto) Lymph # (Auto) [place] # (Auto) Eos # (Auto) Baso # (Auto) Abs Immat Gran (auto) Absolute Neuts (auto) Absolute Nucleated RBC Nucleated RBC % (auto) PT 34.7 H INR 2.9 H VBG pH 7.49 H VBG pCO2 24 VBG pO2 56 VBG HCO3 19 L VBG O2 Saturation 90.0 VBG Base Excess -3.2 Sodium 142 Potassium 3.5 D Chloride 107 Carbon Dioxide 20 L Anion Gap 19 BUN 112 H Creatinine 5.20 H* Estim Creat Clear Calc 15.0 Estimated GFR 12 Random Glucose 131 H Calcium 9.2 Phosphorus 4.0 Magnesium 1.7 Total Bilirubin 14.1 H AST 77 H ALT 35 Alkaline Phosphatase 175 H Ammonia Total Protein 5.1 L Albumin 3.1 L Blood Type Antibody Screen Crossmatch 07/22/22 11:24 WBC RBC Hgb Hct MCV MCH MCHC RDW Plt Count MPV Immature Gran % (Auto) Neut % (Auto) Lymph % (Auto) [place] % (Auto) Eos % (Auto) Baso % (Auto) Lymph # (Auto) [place] # (Auto) Eos # (Auto) Baso # (Auto) Abs Immat Gran (auto) Absolute Neuts (auto) Absolute Nucleated RBC Nucleated RBC % (auto) PT INR VBG pH VBG pCO2 VBG pO2 VBG HCO3 VBG O2 Saturation VBG Base Excess Sodium Potassium Chloride Carbon Dioxide Anion Gap BUN Creatinine Estim Creat Clear Calc Estimated GFR Random Glucose Calcium Phosphorus Magnesium Total Bilirubin AST ALT Alkaline Phosphatase Ammonia 25 Total Protein Albumin Blood Type Antibody Screen Crossmatch Microbiology Microbiology Results: Microbiology 07/20/22 12:10 Blood - Venous Blood Culture - Preliminary No growth after 48 hours. 07/20/22 12:10 Blood - Venous Blood Culture - Preliminary No growth after 48 hours. 07/20/22 Unknown Urine clean catch - Urine nascimento top Urine Culture - Final Nicol albicans Progress Note: A&P Assessment and plan (1) GI bleed not requiring more than 4 units of blood in 24 hours, ICU, or surgery: Status: Acute (2) Hematochezia: Status: Acute (3) Hyperkalemia: Status: Acute (4) Hepatorenal syndrome: Status: Acute (5) Alcoholic cirrhosis: Status: Acute (6) SAUL (acute kidney injury): Status: Acute (7) Hypoxia: Status: Acute (8) Acute UTI: Status: Acute (9) End stage liver disease: Status: Acute (10) Alcoholic cirrhosis: Status: Acute (11) Gram-negative bacteremia: Status: Acute (12) Ascites: Status: Acute (13) Hyponatremia: Status: Acute (14) UTI (urinary tract infection): Status: Acute (15) Acute hyponatremia: Status: Acute (16) Non-compliant patient: Status: Acute Plan He has demonstrable hematochezia and will check another hemoglobin in the morning and clearly if below 7 will transfuse at least 1 unit and reassess him for consumptive coagulopathy with repeat coagulation testing and if not consumptive but all due to hepatic insufficiency we might need to replace clotting factors to at least medically treat the acute bleed while we still consider him somewhat a unstable for a endoscopy Quality Stroke Does the patient have a stroke diagnosis?: No VTE Prior VTE?: No VTE Risk Level:: Medical - moderate - high VTE Device Contraindication: N/A - Device Ordered VTE Drug Contraindication: Treatment Not Indicated
--- NOTE | 2022-07-22 15:55 | MHC.CM.PN ---
EMR REVIEWED PT REMAINS IN ICU WITH METABOLIC ACIDOSIS, HYPERKALEMIA, ACUTE RENAL FAILURE AND SLOW UGI BLEED. CM TO FOLLOW FOR DC NEEDS.
[2022-07-22] MEDS: Albumin Human 25 % 100 ML IV ×2 (21:44→22:31)
[2022-07-22 21:48] LABS: Basophils Percent Auto 0.1 % (0-2); Eosinophils Percent Auto 0.1 % (0-4); Hematocrit 21.9 % (42.0-52.0); Hemoglobin 7.8 g/dl (14.0-18.0); Imm Gran Abs Auto 0.06 X10*3/uL (0.00-0.03); Imm Gran Pct Auto 0.6 % (0.0-0.4); Lymphocytes Absolute Auto 0.6 X10*3/uL (1.2-4.9); Lymphocytes Percent Auto 5.8 % (20-40); Mean Corpuscular HGB Conc 35.6 g/dl (31.0-36.0); Mean Corpuscular Hemoglobin 35.1 pg (27.0-33.0); Mean Corpuscular Volume 98.6 fL (80.0-98.0); Mean Platelet Volume 9.9 fL (9.4-12.4); Monocytes Absolute Auto 0.3 X10*3/uL (0.1-1.2); Monocytes Percent Auto 2.8 % (2-11); Neutrophils Absolute Auto 9.2 x10*3/uL (2.0-8.3); Neutrophils Percent Auto 90.6 % (45-73); Red Blood Count 2.22 X10*6/uL (4.60-5.80); Red Cell Distribution Width 17.3 % (11.0-16.0); SCAN SMEAR FLAG 1; White Blood Count 10.2 X10*3/uL (4.8-10.8)
[2022-07-22 21:51] LABS: Platelet Count 36 X10*3/uL (160-400)
[2022-07-22 21:53] LABS: MANUAL DIFF FLAG SCAN
[2022-07-22 21:57] LABS: Fibrinogen 146 MG/DL (259-690); INTERNATIONAL NORM RATIO 2.8 (0.9-1.1); Prothrombin Time 33.7 SEC (10.0-13.1)
[2022-07-22 22:00] LABS: Partial Thromboplastin Time 47.4 SEC (26.0-36.4)
[2022-07-22 22:05] LABS: SLIDE REVIEW VERIFIED
[2022-07-22 22:16] LABS: Alanine Aminotransferase 33 U/L (0-40); Albumin Level 2.9 g/dL (3.5-5.0); Alkaline Phosphatase 159 U/L (39-117); Anion Gap 17 (12-20); Aspartate Amino Transferase 72 U/L (5-37); Bilirubin Direct 6.8 mg/dL (0.0-0.5); Bilirubin Total 15.3 mg/dL (0.0-1.0); Blood Urea Nitrogen 120 mg/dL (9-16); Calcium 9.1 mg/dL (8.4-10.2); Carbon Dioxide 18 mmol/L (22-29); Chloride 109 mmol/L (96-108); Creatinine Clr Calc Pharmacy 15.2; Estimated Glomerular Filt Rate 12; Glucose Random 121 mg/dL (60-115); Potassium 3.2 mmol/L (3.3-5.1); Sodium 141 mmol/L (135-145)
[2022-07-22 23:34] LABS: Lactate Dehydrogenase 271 U/L (118-273)
[2022-07-23] VITALS (39 sets, daily range): BP systolic 90–115; BP diastolic 47–74; PULSE 89–105; RESP 12–28; TEMP -14–37; O2SAT 91–100; BMI 25.3
[2022-07-23] MEDS: Albumin Human 25 % 100 ML IV ×5 (02:25→22:32)
[2022-07-23 05:29] LABS: MANUAL DIFF FLAG NO
[2022-07-23 05:38] LABS: Basophils Percent Auto 0.2 % (0-2); Eosinophils Percent Auto 0.7 % (0-4); Imm Gran Abs Auto 0.03 X10*3/uL (0.00-0.03); Imm Gran Pct Auto 0.5 % (0.0-0.4); Lymphocytes Absolute Auto 0.5 X10*3/uL (1.2-4.9); Lymphocytes Percent Auto 7.7 % (20-40); Mean Corpuscular HGB Conc 35.1 g/dl (31.0-36.0); Mean Corpuscular Hemoglobin 35.5 pg (27.0-33.0); Mean Corpuscular Volume 101.2 fL (80.0-98.0); Mean Platelet Volume 10.3 fL (9.4-12.4); Monocytes Absolute Auto 0.2 X10*3/uL (0.1-1.2); Monocytes Percent Auto 2.9 % (2-11); Neutrophils Absolute Auto 5.1 x10*3/uL (2.0-8.3); Red Blood Count 1.69 X10*6/uL (4.60-5.80); Red Cell Distribution Width 17.7 % (11.0-16.0); VBG HCO3 17 mmol/L (22-26); VBG pCO2 28 mmHg; VBG pO2 61 mmHg; White Blood Count 5.8 X10*3/uL (4.8-10.8)
[2022-07-23 05:41] LABS: Platelet Count 24 X10*3/uL (160-400)
[2022-07-23 05:42] LABS: Hematocrit 17.1 % (42.0-52.0)
[2022-07-23 05:47] LABS: Venous Blood Gas Refer to POC result
[2022-07-23] MEDS: Pantoprazole Sodium 40 MG/10 ML VIAL IVPUSH ×2 (05:51→16:02)
--- NOTE | 2022-07-23 05:51 | P.ACPN_ITS ---
Advanced Care Planning Note Advanced Care Planning Note Discussed with: patient Time spent (in minutes): 15 Narrative: I had a lengthy discussion with the patient in regards to his clinical scenario.? He appears fully competent, able to understand what I am saying and a to answer even complex questions.? We discussed his current clinical situation and poor prognosis, he is very aware that his significantly ill.? We discussed goals of care including the possibility of invasive procedures, resuscitation and or intubation if further complications happened.? The patient understands these and was able to verbalize back that he does not want anything heroic done. Patient does want all medical management possible but does not want resuscitation or intubation. The above-mentioned conversation took place in front of this patient's nurse poornima and Azalia? to whom he was able to express he would want to be DNR DNI.? code status ordered change placed. Problems Discussed (1) Hepatorenal syndrome: (2) Alcoholic cirrhosis: (3) SAUL (acute kidney injury): (4) End stage liver disease:
[2022-07-23 05:55] LABS: Alanine Aminotransferase 19 U/L (0-40); Albumin Level 3.8 g/dL (3.5-5.0); Alkaline Phosphatase 111 U/L (39-117); Anion Gap 18 (12-20); Aspartate Amino Transferase 46 U/L (5-37); Bilirubin Total 11.7 mg/dL (0.0-1.0); Blood Urea Nitrogen 115 mg/dL (9-16); Calcium 9.2 mg/dL (8.4-10.2); Carbon Dioxide 19 mmol/L (22-29); Chloride 110 mmol/L (96-108); Creatinine Clr Calc Pharmacy 15.5; Estimated Glomerular Filt Rate 12; Glucose Random 113 mg/dL (60-115); Sodium 144 mmol/L (135-145); Total Protein 5.3 g/dL (6.5-8.0)
[2022-07-23] MEDS: Sodium Bicarbonate 8.4% 50 MEQ/50 ML VIAL 100 MEQ IVPUSH (06:27)
[2022-07-23] MEDS: Octreotide Acetate 500 MCG in 0.9 % Sodium Chloride 500 ML 50.1 MCG IVCONT ×2 (06:32→16:44)
[2022-07-23] MEDS: Thiamine HCL 100 MG in 0.9 % Sodium Chloride 100 ML 202 MG IV (10:58)
[2022-07-23 13:22] LABS: MANUAL DIFF FLAG NO
[2022-07-23 13:35] LABS: Eosinophils Absolute Auto 0.1 X10*3/uL (0.0-0.4); Hematocrit 21.5 % (42.0-52.0); Hemoglobin 7.5 g/dl (14.0-18.0); Imm Gran Abs Auto 0.02 X10*3/uL (0.00-0.03); Imm Gran Pct Auto 0.3 % (0.0-0.4); Lymphocytes Absolute Auto 0.5 X10*3/uL (1.2-4.9); Lymphocytes Percent Auto 7.5 % (20-40); Mean Corpuscular HGB Conc 34.9 g/dl (31.0-36.0); Mean Corpuscular Hemoglobin 34.2 pg (27.0-33.0); Mean Corpuscular Volume 98.2 fL (80.0-98.0); Mean Platelet Volume 9.9 fL (9.4-12.4); Monocytes Absolute Auto 0.2 X10*3/uL (0.1-1.2); Monocytes Percent Auto 3.5 % (2-11); Neutrophils Percent Auto 87.7 % (45-73); Red Blood Count 2.19 X10*6/uL (4.60-5.80); Red Cell Distribution Width 18.1 % (11.0-16.0); White Blood Count 6.8 X10*3/uL (4.8-10.8)
--- NOTE | 2022-07-23 13:35 | MHC.CM.PN ---
Pt remains critical in ICU: Pt made DNR but would like continued care. D/C plan remains ongoing as pt's functional needs are not yet known, however, it seems highly likely he will need placement to manage his high acuity medical issues. CM to follow.
[2022-07-23 13:38] LABS: Platelet Count 31 X10*3/uL (160-400)
--- NOTE | 2022-07-23 14:20 | PM.CCPN ---
Subjective Subjective Date of Service: 07/23/22 Interval History: 56-year-old male with alcoholic cirrhosis and portal hypertension and hepatic failure currently treated as an infectious exacerbation and on meropenem but he did have a paddle renal syndrome with a urine sodium less than 20 and no urinalysis result to indicate ATN but he is borderline oliguric but with 7 ever so slightly improving BUN and creatinine each day and no significant metabolic disarray on that basis but it looks like he has a combined metabolic acidosis and respiratory alkalosis with a completely compensated pH and the metabolic acidosis part and parcel of uremia but he is persistently pancytopenic in addition to having GI blood loss anemia with a post transfusion hemoglobin to now of 7.5 but a baseline fibrinogen that is low and then of course the no his all of his proteins including fibrinogen or low due to his a padded failure but to medically treat his GI bleed we might given cryoprecipitate along with fresh frozen plasma at least for volume and because his initial quick bedside swallow he passed I might start him on clear liquids in case he needs an urgent upper endoscopy because he still is having active hematochezia but not a brisk bleed Still maintains his orientation he has no manifestation of withdrawal he does not have an elevated ammonia level Critical Care Time (minutes): 45 Physical Exam Vital Signs: Vital Signs: Last Vital Signs Temp 97.8 F 07/23/22 10:00 Pulse 91 07/23/22 14:00 Resp 26 H 07/23/22 14:00 BP 99/59 L 07/23/22 14:00 Pulse Ox 97 07/23/22 14:00 O2 Del Method Room Air 07/23/22 14:00 O2 Flow Rate 3 07/21/22 06:00 Oxygen Flow Rate 3 07/20/22 14:43 BMI result Body Mass Index 25.3 Stable degree of orientation x2 He has a a mildly icteric skin color some petechial manifestations on the extremities Good bilateral carotid upstrokes no neck vein distension no gallops Lungs clear Abdomen soft nontender no organomegaly Objective Data Labs 07/23/22 12:38 07/23/22 05:24 Labs: Laboratory Results - last 24 hr 07/21/22 07/22/22 07/22/22 06:42 21:40 21:41 WBC 10.2 RBC 2.22 L Hgb 7.8 L Hct 21.9 L MCV 98.6 H MCH 35.1 H MCHC 35.6 RDW 17.3 H Plt Count 36 L MPV 9.9 Immature Gran % (Auto) 0.6 H Neut % (Auto) 90.6 H Lymph % (Auto) 5.8 L [place] % (Auto) 2.8 Eos % (Auto) 0.1 Baso % (Auto) 0.1 Lymph # (Auto) 0.6 L [place] # (Auto) 0.3 Eos # (Auto) 0.0 Baso # (Auto) 0.0 Abs Immat Gran (auto) 0.06 H Absolute Neuts (auto) 9.2 H Absolute Nucleated RBC 0.000 Nucleated RBC % (auto) 0.0 Smear Tech's Comments VERIFIED PT 33.7 H INR 2.8 H APTT Fibrinogen 146 L VBG pH VBG pCO2 VBG pO2 VBG HCO3 VBG O2 Saturation VBG Base Excess Sodium Potassium Chloride Carbon Dioxide Anion Gap BUN Creatinine Estim Creat Clear Calc Estimated GFR Random Glucose Calcium Total Bilirubin Direct Bilirubin AST ALT Alkaline Phosphatase Lactate Dehydrogenase Total Protein Albumin Blood Type O Negative Antibody Screen NEGATIVE SATYA, Polyspecific Positive SATYA Work-up Crossmatch See Detail 07/22/22 07/22/22 07/22/22 21:41 21:41 21:41 WBC RBC Hgb Hct MCV MCH MCHC RDW Plt Count MPV Immature Gran % (Auto) Neut % (Auto) Lymph % (Auto) [place] % (Auto) Eos % (Auto) Baso % (Auto) Lymph # (Auto) [place] # (Auto) Eos # (Auto) Baso # (Auto) Abs Immat Gran (auto) Absolute Neuts (auto) Absolute Nucleated RBC Nucleated RBC % (auto) Smear Tech's Comments PT INR APTT 47.4 H D Fibrinogen VBG pH VBG pCO2 VBG pO2 VBG HCO3 VBG O2 Saturation VBG Base Excess Sodium 141 Potassium 3.2 L Chloride 109 H Carbon Dioxide 18 L Anion Gap 17 BUN 120 H Creatinine 5.12 H* Estim Creat Clear Calc 15.2 Estimated GFR 12 Random Glucose 121 H Calcium 9.1 Total Bilirubin 15.3 H Direct Bilirubin 6.8 H AST 72 H ALT 33 Alkaline Phosphatase 159 H Lactate Dehydrogenase 271 Total Protein 5.0 L Albumin 2.9 L Blood Type Antibody Screen SATYA, Polyspecific NEGATIVE Positive SATYA Work-up Not Reportable Crossmatch 07/23/22 07/23/2207/23/23 05:24 05:24 05:24 WBC 5.8 RBC 1.69 L D Hgb 6.0 L* D Hct 17.1 L* D MCV 101.2 H MCH 35.5 H MCHC 35.1 RDW 17.7 H Plt Count 24 L D MPV 10.3 Immature Gran % (Auto) 0.5 H Neut % (Auto) 88.0 H Lymph % (Auto) 7.7 L [place] % (Auto) 2.9 Eos % (Auto) 0.7 Baso % (Auto) 0.2 Lymph # (Auto) 0.5 L [place] # (Auto) 0.2 Eos # (Auto) 0.0 Baso # (Auto) 0.0 Abs Immat Gran (auto) 0.03 Absolute Neuts (auto) 5.1 Absolute Nucleated RBC 0.000 Nucleated RBC % (auto) 0.0 Smear Tech's Comments PT INR APTT Fibrinogen VBG pH 7.40 VBG pCO2 28 VBG pO2 61 VBG HCO3 17 L VBG O2 Saturation 90.0 VBG Base Excess -6.0 Sodium 144 Potassium 3.0 L Chloride 110 H Carbon Dioxide 19 L Anion Gap 18 BUN 115 H Creatinine 5.01 H* Estim Creat Clear Calc 15.5 Estimated GFR 12 Random Glucose 113 Calcium 9.2 Total Bilirubin 11.7 H Direct Bilirubin AST 46 H ALT 19 Alkaline Phosphatase 111 Lactate Dehydrogenase Total Protein 5.3 L Albumin 3.8 Blood Type Antibody Screen SATYA, Polyspecific Positive SATYA Work-up Crossmatch 07/23/22 12:38 WBC 6.8 RBC 2.19 L D Hgb 7.5 L D Hct 21.5 L D MCV 98.2 H MCH 34.2 H MCHC 34.9 RDW 18.1 H Plt Count 31 L D MPV 9.9 Immature Gran % (Auto) 0.3 Neut % (Auto) 87.7 H Lymph % (Auto) 7.5 L [place] % (Auto) 3.5 Eos % (Auto) 1.0 Baso % (Auto) 0.0 Lymph # (Auto) 0.5 L [place] # (Auto) 0.2 Eos # (Auto) 0.1 Baso # (Auto) 0.0 Abs Immat Gran (auto) 0.02 Absolute Neuts (auto) 6.0 Absolute Nucleated RBC 0.000 Nucleated RBC % (auto) 0.0 Smear Tech's Comments PT INR APTT Fibrinogen VBG pH VBG pCO2 VBG pO2 VBG HCO3 VBG O2 Saturation VBG Base Excess Sodium Potassium Chloride Carbon Dioxide Anion Gap BUN Creatinine Estim Creat Clear Calc Estimated GFR Random Glucose Calcium Total Bilirubin Direct Bilirubin AST ALT Alkaline Phosphatase Lactate Dehydrogenase Total Protein Albumin Blood Type Antibody Screen SATYA, Polyspecific Positive SATYA Work-up Crossmatch Microbiology Microbiology Results: Microbiology 07/20/22 12:10 Blood - Venous Blood Culture - Preliminary No growth after 48 hours. 07/20/22 12:10 Blood - Venous Blood Culture - Preliminary No growth after 48 hours. 07/20/22 Unknown Urine clean catch - Urine nascimento top Urine Culture - Final Nicol albicans Progress Note: A&P Assessment and plan (1) Hematochezia: Status: Acute (2) GI bleed not requiring more than 4 units of blood in 24 hours, ICU, or surgery: Status: Acute (3) Hyperkalemia: Status: Acute (4) Hepatorenal syndrome: Status: Acute (5) Alcoholic cirrhosis: Status: Acute (6) SAUL (acute kidney injury): Status: Acute (7) Hypoxia: Status: Acute (8) Acute UTI: Status: Acute (9) End stage liver disease: Status: Acute (10) Alcoholic cirrhosis: Status: Acute (11) Gram-negative bacteremia: Status: Acute (12) Ascites: Status: Acute (13) Hyponatremia: Status: Acute (14) UTI (urinary tract infection): Status: Acute (15) Acute hyponatremia: Status: Acute (16) Non-compliant patient: Status: Acute Plan The plan at this point is treat the persistent GI bleed medically with cryoprecipitate for fibrinogen benefit and fresh frozen plasma for some of the other factors and also partially replaced some of the volume with albumin and I am going to start clear liquids by mouth Quality Stroke Does the patient have a stroke diagnosis?: No VTE Prior VTE?: No VTE Risk Level:: Medical - moderate - high VTE Device Contraindication: N/A - Device Ordered VTE Drug Contraindication: Treatment Not Indicated
[2022-07-23 16:31] LABS: OBS Int Ctl Valid YES; OBS1 POSITIVE (NEGATIVE)
--- NOTE | 2022-07-23 18:27 | PC.NURSE ---
Addendum entered by Jenna Benoit RN 07/23/22 19:32: 12:00 per MD hold ordered 1 unit RBCs to recheck pt H+H. Lab improved with 12:38 CBC. MD stated hold 1 unit RBCs ordered, administer Cryo and FFP ordered as well as 2 doses of albumin. Original Note: Assumed care of patient at 07:00 13:00 Per MD completed bedside swallow eval while awaiting official speech therapy evaluation. Patient passed nursing bedside swallow eval with 2 spoonfuls of water. No coughing, no wet voice. Per MD, pt advanced to clear liquid diet with supervision. 15:00 patient asked for water and cranberry juice. Pt swallowed 120 ml liquids without coughing or wet voice. 18:15 Pt offered water. HOB >45 degrees. Pt used straw. Swallowed well for 2 sips. On third sip pt began coughing. SaO2 decreased to 72%. New SaO2 monitor sticker applied. RT to bedside with RN. Patient placed on 15L oxymask. SaO2 improved to 95%. Pt titrated down to 2L oxymask. Pt repositioned Q2H, prevlon system utilized, high fall precautions in place. [employer] camera in room.
--- NOTE | 2022-07-23 20:36 | PM.PNNEP ---
Subjective Subjective Date of Service: 08/03/22 Interval history: Events noted UO noted ON Pressors Ill appearing Physical Exam Vital Signs: Vital Signs: Last Vital Signs Temp 97.0 F 07/23/22 20:00 Pulse 92 07/23/22 20:00 Resp 19 07/23/22 20:00 BP 100/61 07/23/22 20:00 Pulse Ox 100 07/23/22 20:00 O2 Del Method Oxymask 07/23/22 20:00 O2 Flow Rate 2 07/23/22 20:00 Oxygen Flow Rate 3 07/20/22 14:43 BMI result Body Mass Index 25.3 Const: General: no acute distress and ill appearing Limitations: no limitations and altered mental status Neck: Neck: Yes normal visual inspection, Yes no meningeal signs and Yes supple Lymphatic: no lymphadenopathy noted Resp: Auscultation: clear to auscultation bilaterally Cardio: Palpation: normal PMI Rate: regular rate and tachycardic Rhythm: regular rhythm Heart sounds: S1 normal heart sound present, S2 normal heart sound present, no gallops, no murmurs and no rubs GI: Inspection: Yes normal to inspection and Yes distended Palpation (GI): Soft to palpation, nontender, no guarding, not rigid and Ascites present Auscultation: normal bowel sounds Skin: General skin exam: spider nevi and other ( warm) Rashes: no rashes Wounds: no wounds Neuro: General: tone normal, moves all extremities and no meningeal signs Gait exam (Neuro): Normal gait present Extrem: General: Yes normal to inspection, Yes no pedal edema, No clubbing, No cyanosis and Yes edema (1+ bilateral) Objective Data Labs 07/23/22 12:38 07/23/22 05:24 Labs: Laboratory Results - last 24 hr 07/21/22 07/22/22 07/22/22 06:42 21:40 21:41 WBC 10.2 RBC 2.22 L Hgb 7.8 L Hct 21.9 L MCV 98.6 H MCH 35.1 H MCHC 35.6 RDW 17.3 H Plt Count 36 L MPV 9.9 Immature Gran % (Auto) 0.6 H Neut % (Auto) 90.6 H Lymph % (Auto) 5.8 L [place] % (Auto) 2.8 Eos % (Auto) 0.1 Baso % (Auto) 0.1 Lymph # (Auto) 0.6 L [place] # (Auto) 0.3 Eos # (Auto) 0.0 Baso # (Auto) 0.0 Abs Immat Gran (auto) 0.06 H Absolute Neuts (auto) 9.2 H Absolute Nucleated RBC 0.000 Nucleated RBC % (auto) 0.0 Smear Tech's Comments VERIFIED PT 33.7 H INR 2.8 H APTT Fibrinogen 146 L VBG pH VBG pCO2 VBG pO2 VBG HCO3 VBG O2 Saturation VBG Base Excess Sodium Potassium Chloride Carbon Dioxide Anion Gap BUN Creatinine Estim Creat Clear Calc Estimated GFR Random Glucose Calcium Total Bilirubin Direct Bilirubin AST ALT Alkaline Phosphatase Lactate Dehydrogenase Total Protein Albumin Stool Occult Blood Blood Type O Negative Antibody Screen NEGATIVE SATYA, Polyspecific Positive SATYA Work-up Crossmatch See Detail 07/22/22 07/22/22 07/22/22 21:41 21:41 21:41 WBC RBC Hgb Hct MCV MCH MCHC RDW Plt Count MPV Immature Gran % (Auto) Neut % (Auto) Lymph % (Auto) [place] % (Auto) Eos % (Auto) Baso % (Auto) Lymph # (Auto) [place] # (Auto) Eos # (Auto) Baso # (Auto) Abs Immat Gran (auto) Absolute Neuts (auto) Absolute Nucleated RBC Nucleated RBC % (auto) Smear Tech's Comments PT INR APTT 47.4 H D Fibrinogen VBG pH VBG pCO2 VBG pO2 VBG HCO3 VBG O2 Saturation VBG Base Excess Sodium 141 Potassium 3.2 L Chloride 109 H Carbon Dioxide 18 L Anion Gap 17 BUN 120 H Creatinine 5.12 H* Estim Creat Clear Calc 15.2 Estimated GFR 12 Random Glucose 121 H Calcium 9.1 Total Bilirubin 15.3 H Direct Bilirubin 6.8 H AST 72 H ALT 33 Alkaline Phosphatase 159 H Lactate Dehydrogenase 271 Total Protein 5.0 L Albumin 2.9 L Stool Occult Blood Blood Type Antibody Screen SATYA, Polyspecific NEGATIVE Positive STAYA Work-up Not Reportable Crossmatch 07/23/22 07/23/22 07/23/22 05:24 05:24 05:24 WBC 5.8 RBC 1.69 L D Hgb 6.0 L* D Hct 17.1 L* D MCV 101.2 H MCH 35.5 H MCHC 35.1 RDW 17.7 H Plt Count 24 L D MPV 10.3 Immature Gran % (Auto) 0.5 H Neut % (Auto) 88.0 H Lymph % (Auto) 7.7 L [place] % (Auto) 2.9 Eos % (Auto) 0.7 Baso % (Auto) 0.2 Lymph # (Auto) 0.5 L [place] # (Auto) 0.2 Eos # (Auto) 0.0 Baso # (Auto) 0.0 Abs Immat Gran (auto) 0.03 Absolute Neuts (auto) 5.1 Absolute Nucleated RBC 0.000 Nucleated RBC % (auto) 0.0 Smear Tech's Comments PT INR APTT Fibrinogen VBG pH 7.40 VBG pCO2 28 VBG pO2 61 VBG HCO3 17 L VBG O2 Saturation 90.0 VBG Base Excess -6.0 Sodium 144 Potassium 3.0 L Chloride 110 H Carbon Dioxide 19 L Anion Gap 18 BUN 115 H Creatinine 5.01 H* Estim Creat Clear Calc 15.5 Estimated GFR 12 Random Glucose 113 Calcium 9.2 Total Bilirubin 11.7 H Direct Bilirubin AST 46 H ALT 19 Alkaline Phosphatase 111 Lactate Dehydrogenase Total Protein 5.3 L Albumin 3.8 Stool Occult Blood Blood Type Antibody Screen SATYA, Polyspecific Positive SATYA Work-up Crossmatch 07/23/22 07/23/22 12:38 16:11 WBC 6.8 RBC 2.19 L D Hgb 7.5 L D Hct 21.5 L D MCV 98.2 H MCH 34.2 H MCHC 34.9 RDW 18.1 H Plt Count 31 L D MPV 9.9 Immature Gran % (Auto) 0.3 Neut % (Auto) 87.7 H Lymph % (Auto) 7.5 L [place] % (Auto) 3.5 Eos % (Auto) 1.0 Baso % (Auto) 0.0 Lymph # (Auto) 0.5 L [place] # (Auto) 0.2 Eos # (Auto) 0.1 Baso # (Auto) 0.0 Abs Immat Gran (auto) 0.02 Absolute Neuts (auto) 6.0 Absolute Nucleated RBC 0.000 Nucleated RBC % (auto) 0.0 Smear Tech's Comments PT INR APTT Fibrinogen VBG pH VBG pCO2 VBG pO2 VBG HCO3 VBG O2 Saturation VBG Base Excess Sodium Potassium Chloride Carbon Dioxide Anion Gap BUN Creatinine Estim Creat Clear Calc Estimated GFR Random Glucose Calcium Total Bilirubin Direct Bilirubin AST ALT Alkaline Phosphatase Lactate Dehydrogenase Total Protein Albumin Stool Occult Blood POSITIVE Blood Type Antibody Screen SATYA, Polyspecific Positive SATYA Work-up Crossmatch Microbiology Microbiology Results: Microbiology 07/20/22 12:10 Blood - Venous Blood Culture - Preliminary No growth after 48 hours. 07/20/22 12:10 Blood - Venous Blood Culture - Preliminary No growth after 48 hours. 07/20/22 Unknown Urine clean catch - Urine nascimento top Urine Culture - Final Nicol albicans Procedures Date of Service Date of Service: 07/23/22 Assessment & Plan Assessment and plan (1) Hepatorenal syndrome: Status: Acute (2) Alcoholic cirrhosis: Status: Acute (3) SAUL (acute kidney injury): Status: Acute (4) End stage liver disease: Status: Acute Plan SAUL due to pre renal state in the setting of ETOH liver cirrhosis Advanced liver disease Hepatorenal syndrome hypervolemic hyponatremia in the setting of hepatic physiology - resolving Large ascites [place] Acidosis with resp alkalosis REC consider paracentesis Restrict hypotonic fluids. furosemide 20 mg po daily Watch K octreotide maintain systolic blood pressure more than 90 mm of mercury -Agree with pressors No need for bicarb since pH is 7.4 follow kidney function and electrolytes Time Spent With Patient Time: Total time managing care of this patient today ____ minutes. Progress Note: Quality Stroke Does the patient have a stroke diagnosis?: No
[2022-07-24] VITALS (43 sets, daily range): BP systolic 83–133; BP diastolic 44–90; PULSE 87–128; RESP 14–26; TEMP 35.6–36.4; O2SAT 90–100; BMI 25.3
[2022-07-24 02:53] LABS: MANUAL DIFF FLAG NO
[2022-07-24 02:54] LABS: Eosinophils Absolute Auto 0.1 X10*3/uL (0.0-0.4); Imm Gran Abs Auto 0.04 X10*3/uL (0.00-0.03); Imm Gran Pct Auto 0.6 % (0.0-0.4); Lymphocytes Absolute Auto 0.6 X10*3/uL (1.2-4.9); Lymphocytes Percent Auto 8.2 % (20-40); Mean Corpuscular HGB Conc 33.7 g/dl (31.0-36.0); Mean Corpuscular Hemoglobin 33.5 pg (27.0-33.0); Mean Corpuscular Volume 99.4 fL (80.0-98.0); Mean Platelet Volume 10.6 fL (9.4-12.4); Monocytes Absolute Auto 0.2 X10*3/uL (0.1-1.2); Monocytes Percent Auto 2.9 % (2-11); Neutrophils Absolute Auto 6.3 x10*3/uL (2.0-8.3); Neutrophils Percent Auto 87.3 % (45-73); Red Blood Count 1.67 X10*6/uL (4.60-5.80); White Blood Count 7.2 X10*3/uL (4.8-10.8)
[2022-07-24 02:56] LABS: VBG Base Excess -2.1 mmol/L; VBG HCO3 22 mmol/L (22-26); VBG pCO2 35 mmHg; VBG pH 7.39 (7.32-7.43); VBG pO2 39 mmHg
[2022-07-24 02:58] LABS: Platelet Count 31 X10*3/uL (160-400)
[2022-07-24] MEDS: Octreotide Acetate 500 MCG in 0.9 % Sodium Chloride 500 ML 50.1 MCG IVCONT ×3 (02:58→23:41)
[2022-07-24 03:00] LABS: Fibrinogen 135 MG/DL (259-690); Hematocrit 16.6 % (42.0-52.0); Hemoglobin 5.6 g/dl (14.0-18.0); INTERNATIONAL NORM RATIO 3.1 (0.9-1.1); Prothrombin Time 37.7 SEC (10.0-13.1)
[2022-07-24 03:03] LABS: Venous Blood Gas Refer to POC result
[2022-07-24 03:06] LABS: Partial Thromboplastin Time 63.2 SEC (26.0-36.4)
[2022-07-24 03:14] LABS: Alanine Aminotransferase 13 U/L (0-40); Albumin Level 3.5 g/dL (3.5-5.0); Alkaline Phosphatase 78 U/L (39-117); Anion Gap 17 (12-20); Aspartate Amino Transferase 28 U/L (5-37); Bilirubin Total 8.9 mg/dL (0.0-1.0); Blood Urea Nitrogen 121 mg/dL (9-16); Calcium 8.5 mg/dL (8.4-10.2); Carbon Dioxide 24 mmol/L (22-29); Chloride 113 mmol/L (96-108); Estimated Glomerular Filt Rate 13; Glucose Random 154 mg/dL (60-115); Lactate Dehydrogenase 146 U/L (118-273); Phosphorus 3.9 mg/dL (2.7-4.5); Potassium 2.9 mmol/L (3.3-5.1); Sodium 151 mmol/L (135-145); Total Protein 4.6 g/dL (6.5-8.0)
--- NOTE | 2022-07-24 03:55 | PC.NURSE ---
Addendum entered by Sarah Guerrero RN 07/24/22 08:21: Central line placed in Left IJ by Robinson CAMILO @ approx 0330, issue with peripheral iv access, not infusing blood. 11p-7a - 3 units PRBC, 2 units FFP, 1 unit cryo, ,1 dose of vit k infused see MAR/TAR. Patient also given potassium 40meq and vasopressin as ordered and given. BP improved with blood administration and pressor-Robinson CAMILO & Dr Lerner aware of bloody output, blood admin, & improvement with pressor. Patient clean and repositioned, bed changed. Report given to oncoming RN. Original Note: Patient having large maroon loose stools, Bp soft 80-90's/40-5's PA notified labs ordere. H/H 5.6/16.6, APTT: 37.7, oredrs for 2unitsPRBC, cryo, plasma, vit k, see orders and MAR for administration. Patient had 2 more large BM-bright red during infusion of first unit RBC. Patient vitals stable, Vitamin K running.
[2022-07-24] MEDS: Potassium Chloride/H20 40 MEQ/100 ML PIGGYBACK 50 MEQ IV (06:18)
[2022-07-24] MEDS: Pantoprazole Sodium 40 MG/10 ML VIAL IVPUSH ×2 (06:20→15:04)
[2022-07-24] MEDS: Vasopressin 20 UNIT/100 ML INFUS..BTL 12 UNIT IV ×3 (06:55→20:30)
--- NOTE | 2022-07-24 08:30 | PM.EVENT ---
Event Note Date of Service: 07/24/22 Event Note: 56 YM with alcoholic cirrhosis, [id number] diabetes mellitus, non compliance, peripheral neuropathy and poor mobility [place] [facility] [place] with generalized fatigue/weakness, chills, decreased p.o. intake & SOB and acute renal failure with metabolic acidosis, hyperkalemia, low platelets and coagulopathy. Pt has ESLD related to ETOH abuse (reports 1 year soberiety). Renal failure is slowly improving. Hospital course has been complicated by GI bleeding with passage of burgundy colored stools with clots. He was transfused 3 units of PRNC overnight. RECOMMENDATIONS: 1. Transfuse 2 units of platelets, FFP and PRBC this morning 2. Repeat CBC, INR post transfusion 3. Pt is scheduled for an EGD today Time Spent With Patient Time: Total time managing care of this patient today ____ minutes.
[2022-07-24] MEDS: KCl 20 mEq in 5 % Dextrose 20 MEQ/1,000 ML IV.SOLN 125 MEQ IVCONT ×2 (08:35→16:46)
[2022-07-24] MEDS: Thiamine HCL 100 MG in 0.9 % Sodium Chloride 100 ML 202 MG IV (09:10)
[2022-07-24 09:28] LABS: Hematocrit 22.3 % (42.0-52.0); Hemoglobin 7.8 g/dl (14.0-18.0); Mean Corpuscular Hemoglobin 33.2 pg (27.0-33.0); Mean Corpuscular Volume 94.9 fL (80.0-98.0); Mean Platelet Volume 9.3 fL (9.4-12.4); Red Blood Count 2.35 X10*6/uL (4.60-5.80); Red Cell Distribution Width 15.8 % (11.0-16.0); White Blood Count 13.4 X10*3/uL (4.8-10.8)
[2022-07-24 09:29] LABS: Platelet Count 58 X10*3/uL (160-400)
[2022-07-24 09:36] LABS: Fibrinogen 193 MG/DL (259-690); INTERNATIONAL NORM RATIO 2.2 (0.9-1.1); Prothrombin Time 26.6 SEC (10.0-13.1)
[2022-07-24 09:38] LABS: Partial Thromboplastin Time 46.6 SEC (26.0-36.4)
[2022-07-24 10:02] LABS: Band Neutrophils Percent 4 % (3-5); Lymphocytes Absolute Manual 0.3 X10*3/uL (1.2-4.9); Lymphocytes Percent Manual 2 % (20-40); Neutrophils Absolute Manual 13.1 X10*3/uL (2.0-8.3); Neutrophils Percent Manual 94 % (45-73)
[2022-07-24 10:06] LABS: Acanthocytes 3+ (>5) /OIF; Burr Cells 1+ (0-2) /OIF; RBC Morphology NOTED; Schistocytes 1+ (0-2) /OIF
[2022-07-24 10:07] LABS: Platelet Estimate DECREASED (NORMAL); Platelet Morphology Comment NORMAL
--- NOTE | 2022-07-24 10:15 | MHC.CLN ---
F/U PT ADVANCED TO CLEAR LIQUID DIET RECOMMEND ADDING ENSURE CLEAR TID TO INCREASE KCALS SUPP TO PROVIDE 720KCALS, 24G PROTEIN AND RENAL FRIENDLY (NO K+) MONITOR PO INTAKE CLOSELY
--- NOTE | 2022-07-24 13:17 | MHC.SHP ---
Pre-Procedural Eval Section A Date of Service: 07/24/22 The patient is an INPATIENT: Yes Changes since office visit: Yes New Medical Problems, Yes Changes in Medication and Yes Patient answered all questions The History & Physical has been completed within 30 days and I have reviewed it.: Yes Section B Chief Complaint: Hepatorenial syndrome Allergies: Allergies Allergy/AdvReac Type Severity Reaction Status Date / Time acetaminophen [From PERCOCET] Allergy Severe AGITATION Verified 05/12/22 15:32 oxycodone [From PERCOCET] Allergy Severe AGITATION Verified 05/12/22 15:32 bee pollen [Bee Stings] Allergy Mild SWELLING Verified 05/12/22 15:32 lorazepam AdvReac Unknown AGITATION Verified 05/12/22 15:32 Plan I have reviewed the history and physical and performed a pertinent physical examination on my patient. No changes have occurred unless specified. Time Spent With Patient Time: Total time managing care of this patient today ____ minutes.
--- NOTE | 2022-07-24 13:44 | MHC.CM.PN ---
Pt continues care in ICU: LGIB requiring 3 units of PRBC's on 07/23: multiple organ failure: d/c plan ongoing: pt will likely need placement d/t anticipated high care needs. CM to follow for clinical stability and assessment of functional capabilities.
--- NOTE | 2022-07-24 13:46 | P.CONAN_ITS ---
[facility] Active Problems Active Problems: All Active Problems (Updated 07/23/22 @ 14:19 by Helder Lerner MD) Hematochezia (Acute) GI bleed not requiring more than 4 units of blood in 24 hours, ICU, or surgery (Acute) Hyperkalemia (Acute) Hepatorenal syndrome (Acute) Alcoholic cirrhosis (Acute) SAUL (acute kidney injury) (Acute) Hypoxia (Acute) Acute UTI (Acute) End stage liver disease (Acute) Alcoholic cirrhosis (Acute) Gram-negative bacteremia (Acute) Ascites (Acute) Hyponatremia (Acute) UTI (urinary tract infection) (Acute) Acute hyponatremia (Acute) Non-compliant patient (Acute) Past Medical History Medical History SAUL (acute kidney injury) SAUL (acute kidney injury) Alcohol abuse Alcoholic cirrhosis Ascites Diabetes Elevated liver enzymes Hypertension Hyponatremia Liver cirrhosis Pressure ulcer Withdrawal seizures Family History Family History Other No family history of coronary artery disease Surgical History Surgical History No pertinent past surgical history History of Problems with Anesthesia: No Social History Social History Household Members: Significant Other Housing: Unknown / Unable to assess Do you presently have visiting nurse or other home services: No Unable to assess alcohol history related to: Unknown Alcohol intake: current Alcohol intake frequency: does not drink Alcohol type: beer and hard liquor Patient Tobacco Use Status: Never used Tobacco Tobacco use type: Smokeless Tobacco Second Hand Smoke Exposure: No Advance Directives Date on File: 03/18/22 service: Yes Current occupational status: disabled Meds Allergies Allergy/AdvReac Type Severity Reaction Status Date / Time acetaminophen [From PERCOCET] Allergy Severe AGITATION Verified 05/12/22 15:32 oxycodone [From PERCOCET] Allergy Severe AGITATION Verified 05/12/22 15:32 bee pollen [Bee Stings] Allergy Mild SWELLING Verified 05/12/22 15:32 lorazepam AdvReac Unknown AGITATION Verified 05/12/22 15:32 Active Medications: Current Medications Norepinephrine Bitartrate (Levophed) 8 mg in 250 mls @ 0 mls/hr IV .Q0M [facility]; Protocol Last Titration: 07/21/22 15:59 Dose: Infused Meropenem 500 mg/ Sodium (Chloride) 50 mls @ 100 mls/hr IV Q12H [facility] Last Infusion: 07/24/22 09:19 Dose: Infused Octreotide Acetate 500 mcg/ (Sodium Chloride) 501 mls @ 50.1 mls/hr IVCONT .Q10H [facility] Last Admin: 07/24/22 02:58 Dose: 50 mcg/hr, 50.1 mls/hr Thiamine HCl 100 mg/ Sodium (Chloride) 101 mls @ 202 mls/hr IV DAILY [facility] Last Infusion: 07/24/22 10:00 Dose: Infused Vasopressin (Vasostrict) 20 unit in 100 mls @ 12 mls/hr IV .Q8H20M [facility] Last Admin: 07/24/22 13:13 Dose: 0.04 unit/min, 12 mls/hr Potassium Chloride/Dextrose (Kcl 20 Meq In 5 % Dextrose) 20 meq in 1,000 mls @ 125 mls/hr IVCONT .Q8H [facility] Last Infusion: 07/24/22 13:19 Dose: 0 mls/hr Pantoprazole Sodium (Pantoprazole Sodium 40 Mg/10 Ml Vial) 40 mg IVPUSH BID@0630,1630 [facility] Last Admin: 07/24/22 06:20 Dose: 40 mg Home Medications Medication Instructions Recorded Confirmed Last Taken Type insulin lispro 100 unit/mL 0 sliding scale dose subcut TIDAC 04/03/22 07/20/22 04/03/22 History subcutaneous pen melatonin 3 mg tablet 6 mg PO BEDTIME 05/20/22 07/20/22 05/19/22 History metformin 1,000 mg tablet 1 tab PO BIDAC 05/20/22 07/20/22 05/20/22 History omeprazole 20 mg capsule,delayed 20 mg PO DAILY@0630 05/20/22 07/20/22 05/20/22 History release midodrine 5 mg tablet 5 mg PO TID@0900,1300,1700 07/20/22 07/20/22 Unknown History Exam Exam Date and Time: July 24, 2022 1346 Height,Weight and Vital Signs: Height 5 ft 7 in Weight 73.2 kg Last Vital Signs Temp 97.3 F 07/24/22 13:15 Pulse 96 07/24/22 13:15 Resp 15 07/24/22 13:15 BP 105/51 L 07/24/22 13:15 Pulse Ox 94 07/24/22 13:00 O2 Del Method Room Air 07/24/22 13:00 O2 Flow Rate 2 07/24/22 06:00 Oxygen Flow Rate 3 07/20/22 14:43 Pertinent Lab Results Pertinent Lab Results: Laboratory Tests 07/20/22 07/20/22 07/20/22 12:09 12:09 12:09 WBC 11.6 H RBC 2.38 L Hgb 8.6 L Hct 24.2 L MCV 101.7 H MCH 36.1 H MCHC 35.5 RDW 16.7 H Plt Count 89 L D MPV 10.6 Immature Gran % (Auto) 0.5 H Neut % (Auto) 90.8 H Lymph % (Auto) 4.7 L [place] % (Auto) 3.8 Eos % (Auto) 0.2 Baso % (Auto) 0.0 Lymph # (Auto) 0.6 L [place] # (Auto) 0.4 Eos # (Auto) 0.0 Baso # (Auto) 0.0 Abs Immat Gran (auto) 0.06 H Absolute Neuts (auto) 10.5 H Absolute Nucleated RBC 0.000 Nucleated RBC % (auto) 0.0 Neutrophils % (Manual) Band Neutrophils % Lymphocytes % (Manual) Abs Neuts (Manual) Lymphocytes # (Manual) Platelet Estimate Plt Morphology Comment RBC Morphology [place] Cells Acanthocytes (Spur) Schistocytes Smear Tech's Comments VERIFIED PT 29.9 H INR 2.5 H APTT Fibrinogen VBG pH VBG pCO2 VBG pO2 VBG HCO3 VBG O2 Saturation VBG Base Excess Sodium 128 L Potassium 5.7 H D Chloride 101 Carbon Dioxide 15 L Anion Gap 18 BUN 106 H Creatinine 6.62 H* Estim Creat Clear Calc 11.7 Estimated GFR 9 Random Glucose 128 H Lactic Acid Lactic Acid F/U @ 2Hr Lactic Acid F/U @ 4Hr Calcium 9.4 D Phosphorus Magnesium 1.9 Total Bilirubin 3.7 H Direct Bilirubin 1.8 H AST 129 H ALT 59 H Alkaline Phosphatase 255 H Ammonia Lactate Dehydrogenase Troponin I High Sens B-Natriuretic Peptide Total Protein 5.9 L Albumin 2.3 L Lipase 16 Urine Color Urine Appearance Urine pH Ur Specific [place] Urine Protein Urine Glucose (UA) Urine Ketones Urine Blood Urine Nitrite Ur Leukocyte Esterase Urine RBC Urine WBC Ur Squamous Epith Cells Urine Bacteria Hyaline Casts Urine Yeast Ur Random Sodium Stool Occult Blood COVID-19 (JESIKA) COVID-19 [employer] Com Blood Type Antibody Screen SATYA, Polyspecific Positive SATYA Work-up Crossmatch 07/20/22 07/20/22 07/20/22 12:09 12:09 12:09 WBC RBC Hgb Hct MCV MCH MCHC RDW Plt Count MPV Immature Gran % (Auto) Neut % (Auto) Lymph % (Auto) [place] % (Auto) Eos % (Auto) Baso % (Auto) Lymph # (Auto) [place] # (Auto) Eos # (Auto) Baso # (Auto) Abs Immat Gran (auto) Absolute Neuts (auto) Absolute Nucleated RBC Nucleated RBC % (auto) Neutrophils % (Manual) Band Neutrophils % Lymphocytes % (Manual) Abs Neuts (Manual) Lymphocytes # (Manual) Platelet Estimate Plt Morphology Comment RBC Morphology Brigido Cells Acanthocytes (Spur) Schistocytes Smear Tech's Comments PT INR APTT Fibrinogen VBG pH VBG pCO2 VBG pO2 VBG HCO3 VBG O2 Saturation VBG Base Excess Sodium Potassium Chloride Carbon Dioxide Anion Gap BUN Creatinine Estim Creat Clear Calc Estimated GFR Random Glucose Lactic Acid 3.0 H* Lactic Acid F/U @ 2Hr Lactic Acid F/U @ 4Hr Calcium Phosphorus Magnesium Total Bilirubin Direct Bilirubin AST ALT Alkaline Phosphatase Ammonia 30 Lactate Dehydrogenase Troponin I High Sens 17.0 D B-Natriuretic Peptide Total Protein Albumin Lipase Urine Color Urine Appearance Urine pH Ur Specific [place] Urine Protein Urine Glucose (UA) Urine Ketones Urine Blood Urine Nitrite Ur Leukocyte Esterase Urine RBC Urine WBC Ur Squamous Epith Cells Urine Bacteria Hyaline Casts Urine Yeast Ur Random Sodium Stool Occult Blood COVID-19 (JESIKA) COVID-19 [employer] Com Blood Type Antibody Screen SATYA, Polyspecific Positive SATYA Work-up Crossmatch 07/20/22 07/20/22 07/20/22 12:09 12:09 13:49 WBC RBC Hgb Hct MCV MCH MCHC RDW Plt Count MPV Immature Gran % (Auto) Neut % (Auto) Lymph % (Auto) [place] % (Auto) Eos % (Auto) Baso % (Auto) Lymph # (Auto) [place] # (Auto) Eos # (Auto) Baso # (Auto) Abs Immat Gran (auto) Absolute Neuts (auto) Absolute Nucleated RBC Nucleated RBC % (auto) Neutrophils % (Manual) Band Neutrophils % Lymphocytes % (Manual) Abs Neuts (Manual) Lymphocytes # (Manual) Platelet Estimate Plt Morphology Comment RBC Morphology Brigido Cells Acanthocytes (Spur) Schistocytes Smear Tech's Comments PT INR APTT Fibrinogen VBG pH VBG pCO2 VBG pO2 VBG HCO3 VBG O2 Saturation VBG Base Excess Sodium Potassium Chloride Carbon Dioxide Anion Gap BUN Creatinine Estim Creat Clear Calc Estimated GFR Random Glucose Lactic Acid Lactic Acid F/U @ 2Hr Lactic Acid F/U @ 4Hr Calcium Phosphorus Magnesium Total Bilirubin Direct Bilirubin AST ALT Alkaline Phosphatase Ammonia Lactate Dehydrogenase Troponin I High Sens B-Natriuretic Peptide 32 Total Protein Albumin Lipase Urine Color Dark Yellow Urine Appearance Turbid Urine pH 5.0 Ur Specific [place] 1.015 Urine Protein Trace Urine Glucose (UA) Negative Urine Ketones Trace Urine Blood Small (1+) H Urine Nitrite Negative Ur Leukocyte Esterase Large (3+) H Urine RBC >20 H Urine WBC >50 H Ur Squamous Epith Cells 0-2 Urine Bacteria None Seen Hyaline Casts 0-2 Urine Yeast Present Ur Random Sodium Stool Occult Blood COVID-19 (JESIKA) Negative COVID-19 Clin Com See Note Blood Type Antibody Screen SATYA, Polyspecific Positive SATYA Work-up Crossmatch 07/20/22 07/20/22 07/20/22 16:58 17:03 18:20 WBC RBC Hgb Hct MCV MCH MCHC RDW Plt Count MPV Immature Gran % (Auto) Neut % (Auto) Lymph % (Auto) [place] % (Auto) Eos % (Auto) Baso % (Auto) Lymph # (Auto) [place] # (Auto) Eos # (Auto) Baso # (Auto) Abs Immat Gran (auto) Absolute Neuts (auto) Absolute Nucleated RBC Nucleated RBC % (auto) Neutrophils % (Manual) Band Neutrophils % Lymphocytes % (Manual) Abs Neuts (Manual) Lymphocytes # (Manual) Platelet Estimate Plt Morphology Comment RBC Morphology [place] Cells Acanthocytes (Spur) Schistocytes Smear Tech's Comments PT INR APTT Fibrinogen VBG pH 7.28 L VBG pCO2 24 VBG pO2 58 VBG HCO3 11 L VBG O2 Saturation 82.0 VBG Base Excess -13.4 Sodium 132 L Potassium 4.9 Chloride 106 Carbon Dioxide 10 L* D Anion Gap 21 H BUN 98 H Creatinine 6.06 H* Estim Creat Clear Calc 12.8 Estimated GFR 10 Random Glucose 110 Lactic Acid Lactic Acid F/U @ 2Hr 2.8 H* Lactic Acid F/U @ 4Hr Calcium 9.0 Phosphorus Magnesium Total Bilirubin Direct Bilirubin AST ALT Alkaline Phosphatase Ammonia Lactate Dehydrogenase Troponin I High Sens B-Natriuretic Peptide Total Protein Albumin Lipase Urine Color Urine Appearance Urine pH Ur Specific [place] Urine Protein Urine Glucose (UA) Urine Ketones Urine Blood Urine Nitrite Ur Leukocyte Esterase Urine RBC Urine WBC Ur Squamous Epith Cells Urine Bacteria Hyaline Casts Urine Yeast Ur Random Sodium Stool Occult Blood COVID-19 (JESIKA) COVID-19 [facility] Com Blood Type Antibody Screen SATYA, Polyspecific Positive SATYA Work-up Crossmatch 07/20/22 07/21/22 07/21/22 19:24 00:52 04:50 WBC RBC Hgb Hct MCV MCH MCHC RDW Plt Count MPV Immature Gran % (Auto) Neut % (Auto) Lymph % (Auto) [place] % (Auto) Eos % (Auto) Baso % (Auto) Lymph # (Auto) [place] # (Auto) Eos # (Auto) Baso # (Auto) Abs Immat Gran (auto) Absolute Neuts (auto) Absolute Nucleated RBC Nucleated RBC % (auto) Neutrophils % (Manual) Band Neutrophils % Lymphocytes % (Manual) Abs Neuts (Manual) Lymphocytes # (Manual) Platelet Estimate Plt Morphology Comment RBC Morphology [place] Cells Acanthocytes (Spur) Schistocytes Smear Tech's Comments PT INR APTT Fibrinogen VBG pH VBG pCO2 VBG pO2 VBG HCO3 VBG O2 Saturation VBG Base Excess Sodium 136 Potassium 4.4 Chloride 105 Carbon Dioxide 16 L Anion Gap 19 BUN 100 H Creatinine 5.62 H* Estim Creat Clear Calc 13.8 Estimated GFR 11 Random Glucose 125 H Lactic Acid Lactic Acid F/U @ 2Hr Lactic Acid F/U @ 4Hr 1.9 Calcium 9.5 Phosphorus Magnesium Total Bilirubin 3.3 H Direct Bilirubin AST 73 H ALT 32 Alkaline Phosphatase 151 H Ammonia Lactate Dehydrogenase Troponin I High Sens B-Natriuretic Peptide Total Protein 5.5 L Albumin 3.6 Lipase Urine Color Urine Appearance Urine pH Ur Specific [place] Urine Protein Urine Glucose (UA) Urine Ketones Urine Blood Urine Nitrite Ur Leukocyte Esterase Urine RBC Urine WBC Ur Squamous Epith Cells Urine Bacteria Hyaline Casts Urine Yeast Ur Random Sodium < 20.0 Stool Occult Blood COVID-19 (JESIKA) COVID-19 Clin Com Blood Type Antibody Screen SATYA, Polyspecific Positive SATYA Work-up Crossmatch 07/21/22 07/21/22 07/21/22 05:02 05:06 05:06 WBC 10.7 RBC 1.64 L D Hgb 5.8 L* D Hct 16.8 L* D MCV 102.4 H MCH 35.4 H MCHC 34.5 RDW 16.5 H Plt Count 57 L D MPV 10.8 Immature Gran % (Auto) 0.5 H Neut % (Auto) 95.6 H Lymph % (Auto) 2.1 L [place] % (Auto) 1.7 L Eos % (Auto) 0.0 Baso % (Auto) 0.1 Lymph # (Auto) 0.2 L [place] # (Auto) 0.2 Eos # (Auto) 0.0 Baso # (Auto) 0.0 Abs Immat Gran (auto) 0.05 H Absolute Neuts (auto) 10.2 H Absolute Nucleated RBC 0.000 Nucleated RBC % (auto) 0.0 Neutrophils % (Manual) Band Neutrophils % Lymphocytes % (Manual) Abs Neuts (Manual) Lymphocytes # (Manual) Platelet Estimate Plt Morphology Comment RBC Morphology [place] Cells Acanthocytes (Spur) Schistocytes Smear Tech's Comments VERIFIED PT INR APTT Fibrinogen VBG pH 7.51 H VBG pCO2 22 VBG pO2 43 VBG HCO3 18 L VBG O2 Saturation 75.0 VBG Base Excess -4.0 Sodium 136 Potassium 4.4 Chloride 105 Carbon Dioxide 15 L Anion Gap 20 BUN 101 H Creatinine 5.48 H* Estim Creat Clear Calc 14.2 Estimated GFR 11 Random Glucose 172 H Lactic Acid Lactic Acid F/U @ 2Hr Lactic Acid F/U @ 4Hr Calcium 9.3 Phosphorus 3.3 Magnesium 1.8 Total Bilirubin 3.8 H Direct Bilirubin AST 83 H ALT 37 Alkaline Phosphatase 179 H Ammonia Lactate Dehydrogenase Troponin I High Sens B-Natriuretic Peptide Total Protein 5.5 L Albumin 3.5 Lipase Urine Color Urine Appearance Urine pH Ur Specific [place] Urine Protein Urine Glucose (UA) Urine Ketones Urine Blood Urine Nitrite Ur Leukocyte Esterase Urine RBC Urine WBC Ur Squamous Epith Cells Urine Bacteria Hyaline Casts Urine Yeast Ur Random Sodium Stool Occult Blood COVID-19 (JESIKA) COVID-19 Clin Com Blood Type Antibody Screen SATYA, Polyspecific Positive SATYA Work-up Crossmatch 07/21/22 07/21/22 07/21/22 05:06 06:42 21:48 WBC 8.5 RBC 2.11 L D Hgb 7.4 L D Hct 21.0 L* D MCV 99.5 H MCH 35.1 H MCHC 35.2 RDW 15.9 Plt Count 29 L D MPV 10.2 Immature Gran % (Auto) 0.5 H Neut % (Auto) 89.6 H Lymph % (Auto) 4.5 L [place] % (Auto) 5.3 Eos % (Auto) 0.1 Baso % (Auto) 0.0 Lymph # (Auto) 0.4 L [place] # (Auto) 0.5 Eos # (Auto) 0.0 Baso # (Auto) 0.0 Abs Immat Gran (auto) 0.04 H Absolute Neuts (auto) 7.6 Absolute Nucleated RBC 0.000 Nucleated RBC % (auto) 0.0 Neutrophils % (Manual) Band Neutrophils % Lymphocytes % (Manual) Abs Neuts (Manual) Lymphocytes # (Manual) Platelet Estimate Plt Morphology Comment RBC Morphology [place] Cells Acanthocytes (Spur) Schistocytes Smear Tech's Comments PT 48.4 H INR 4.0 H APTT Fibrinogen VBG pH VBG pCO2 VBG pO2 VBG HCO3 VBG O2 Saturation VBG Base Excess Sodium Potassium Chloride Carbon Dioxide Anion Gap BUN Creatinine Estim Creat Clear Calc Estimated GFR Random Glucose Lactic Acid Lactic Acid F/U @ 2Hr Lactic Acid F/U @ 4Hr Calcium Phosphorus Magnesium Total Bilirubin Direct Bilirubin AST ALT Alkaline Phosphatase Ammonia Lactate Dehydrogenase Troponin I High Sens B-Natriuretic Peptide Total Protein Albumin Lipase Urine Color Urine Appearance Urine pH Ur Specific [place] Urine Protein Urine Glucose (UA) Urine Ketones Urine Blood Urine Nitrite Ur Leukocyte Esterase Urine RBC Urine WBC Ur Squamous Epith Cells Urine Bacteria Hyaline Casts Urine Yeast Ur Random Sodium Stool Occult Blood COVID-19 (JESIKA) COVID-19 Clin Com Blood Type O Negative Antibody Screen NEGATIVE SATYA, Polyspecific Positive SATYA Work-up Crossmatch See Detail 07/22/22 07/22/22 07/22/22 05:15 05:15 05:15 WBC 8.7 RBC 2.13 L Hgb 7.6 L Hct 21.1 L MCV 99.1 H MCH 35.7 H MCHC 36.0 RDW 16.9 H Plt Count 37 L D MPV 10.5 Immature Gran % (Auto) 0.6 H Neut % (Auto) 88.6 H Lymph % (Auto) 5.7 L [place] % (Auto) 5.0 Eos % (Auto) 0.0 Baso % (Auto) 0.1 Lymph # (Auto) 0.5 L [place] # (Auto) 0.4 Eos # (Auto) 0.0 Baso # (Auto) 0.0 Abs Immat Gran (auto) 0.05 H Absolute Neuts (auto) 7.7 Absolute Nucleated RBC 0.000 Nucleated RBC % (auto) 0.0 Neutrophils % (Manual) Band Neutrophils % Lymphocytes % (Manual) Abs Neuts (Manual) Lymphocytes # (Manual) Platelet Estimate Plt Morphology Comment RBC Morphology [place] Cells Acanthocytes (Spur) Schistocytes Smear Tech's Comments PT 34.7 H INR 2.9 H APTT Fibrinogen VBG pH VBG pCO2 VBG pO2 VBG HCO3 VBG O2 Saturation VBG Base Excess Sodium 142 Potassium 3.5 D Chloride 107 Carbon Dioxide 20 L Anion Gap 19 BUN 112 H Creatinine 5.20 H* Estim Creat Clear Calc 15.0 Estimated GFR 12 Random Glucose 131 H Lactic Acid Lactic Acid F/U @ 2Hr Lactic Acid F/U @ 4Hr Calcium 9.2 Phosphorus 4.0 Magnesium 1.7 Total Bilirubin 14.1 H Direct Bilirubin AST 77 H ALT 35 Alkaline Phosphatase 175 H Ammonia Lactate Dehydrogenase Troponin I High Sens B-Natriuretic Peptide Total Protein 5.1 L Albumin 3.1 L Lipase Urine Color Urine Appearance Urine pH Ur Specific [place] Urine Protein Urine Glucose (UA) Urine Ketones Urine Blood Urine Nitrite Ur Leukocyte Esterase Urine RBC Urine WBC Ur Squamous Epith Cells Urine Bacteria Hyaline Casts Urine Yeast Ur Random Sodium Stool Occult Blood COVID-19 (JESIKA) COVID-19 Clin Com Blood Type Antibody Screen SATYA, Polyspecific Positive SATYA Work-up Crossmatch 07/22/22 07/22/22 07/22/22 05:15 11:24 21:40 WBC 10.2 RBC 2.22 L Hgb 7.8 L Hct 21.9 L MCV 98.6 H MCH 35.1 H MCHC 35.6 RDW 17.3 H Plt Count 36 L MPV 9.9 Immature Gran % (Auto) 0.6 H Neut % (Auto) 90.6 H Lymph % (Auto) 5.8 L [place] % (Auto) 2.8 Eos % (Auto) 0.1 Baso % (Auto) 0.1 Lymph # (Auto) 0.6 L [place] # (Auto) 0.3 Eos # (Auto) 0.0 Baso # (Auto) 0.0 Abs Immat Gran (auto) 0.06 H Absolute Neuts (auto) 9.2 H Absolute Nucleated RBC 0.000 Nucleated RBC % (auto) 0.0 Neutrophils % (Manual) Band Neutrophils % Lymphocytes % (Manual) Abs Neuts (Manual) Lymphocytes # (Manual) Platelet Estimate Plt Morphology Comment RBC Morphology [place] Cells Acanthocytes (Spur) Schistocytes Smear Tech's Comments VERIFIED PT INR APTT Fibrinogen VBG pH 7.49 H VBG pCO2 24 VBG pO2 56 VBG HCO3 19 L VBG O2 Saturation 90.0 VBG Base Excess -3.2 Sodium Potassium Chloride Carbon Dioxide Anion Gap BUN Creatinine Estim Creat Clear Calc Estimated GFR Random Glucose Lactic Acid Lactic Acid F/U @ 2Hr Lactic Acid F/U @ 4Hr Calcium Phosphorus Magnesium Total Bilirubin Direct Bilirubin AST ALT Alkaline Phosphatase Ammonia 25 Lactate Dehydrogenase Troponin I High Sens B-Natriuretic Peptide Total Protein Albumin Lipase Urine Color Urine Appearance Urine pH Ur Specific [place] Urine Protein Urine Glucose (UA) Urine Ketones Urine Blood Urine Nitrite Ur Leukocyte Esterase Urine RBC Urine WBC Ur Squamous Epith Cells Urine Bacteria Hyaline Casts Urine Yeast Ur Random Sodium Stool Occult Blood COVID-19 (JESIKA) COVID-19 Clin Com Blood Type Antibody Screen SATYA, Polyspecific Positive SATYA Work-up Crossmatch 07/22/22 07/22/22 07/22/22 21:41 21:41 21:41 WBC RBC Hgb Hct MCV MCH MCHC RDW Plt Count MPV Immature Gran % (Auto) Neut % (Auto) Lymph % (Auto) [place] % (Auto) Eos % (Auto) Baso % (Auto) Lymph # (Auto) [place] # (Auto) Eos # (Auto) Baso # (Auto) Abs Immat Gran (auto) Absolute Neuts (auto) Absolute Nucleated RBC Nucleated RBC % (auto) Neutrophils % (Manual) Band Neutrophils % Lymphocytes % (Manual) Abs Neuts (Manual) Lymphocytes # (Manual) Platelet Estimate Plt Morphology Comment RBC Morphology [place] Cells Acanthocytes (Spur) Schistocytes Smear Tech's Comments PT 33.7 H INR 2.8 H APTT Fibrinogen 146 L VBG pH VBG pCO2 VBG pO2 VBG HCO3 VBG O2 Saturation VBG Base Excess Sodium 141 Potassium 3.2 L Chloride 109 H Carbon Dioxide 18 L Anion Gap 17 BUN 120 H Creatinine 5.12 H* Estim Creat Clear Calc 15.2 Estimated GFR 12 Random Glucose 121 H Lactic Acid Lactic Acid F/U @ 2Hr Lactic Acid F/U @ 4Hr Calcium 9.1 Phosphorus Magnesium Total Bilirubin 15.3 H Direct Bilirubin 6.8 H AST 72 H ALT 33 Alkaline Phosphatase 159 H Ammonia Lactate Dehydrogenase 271 Troponin I High Sens B-Natriuretic Peptide Total Protein 5.0 L Albumin 2.9 L Lipase Urine Color Urine Appearance Urine pH Ur Specific [place] Urine Protein Urine Glucose (UA) Urine Ketones Urine Blood Urine Nitrite Ur Leukocyte Esterase Urine RBC Urine WBC Ur Squamous Epith Cells Urine Bacteria Hyaline Casts Urine Yeast Ur Random Sodium Stool Occult Blood COVID-19 (JESIKA) COVID-19 Clin Com Blood Type Antibody Screen SATYA, Polyspecific NEGATIVE Positive SATYA Work-up Not Reportable Crossmatch 07/22/22 07/23/22 07/23/22 21:41 05:24 05:24 WBC 5.8 RBC 1.69 L D Hgb 6.0 L* D Hct 17.1 L* D MCV 101.2 H MCH 35.5 H MCHC 35.1 RDW 17.7 H Plt Count 24 L D MPV 10.3 Immature Gran % (Auto) 0.5 H Neut % (Auto) 88.0 H Lymph % (Auto) 7.7 L [place] % (Auto) 2.9 Eos % (Auto) 0.7 Baso % (Auto) 0.2 Lymph # (Auto) 0.5 L [place] # (Auto) 0.2 Eos # (Auto) 0.0 Baso # (Auto) 0.0 Abs Immat Gran (auto) 0.03 Absolute Neuts (auto) 5.1 Absolute Nucleated RBC 0.000 Nucleated RBC % (auto) 0.0 Neutrophils % (Manual) Band Neutrophils % Lymphocytes % (Manual) Abs Neuts (Manual) Lymphocytes # (Manual) Platelet Estimate Plt Morphology Comment RBC Morphology [place] Cells Acanthocytes (Spur) Schistocytes Smear Tech's Comments PT INR APTT 47.4 H D Fibrinogen VBG pH VBG pCO2 VBG pO2 VBG HCO3 VBG O2 Saturation VBG Base Excess Sodium 144 Potassium 3.0 L Chloride 110 H Carbon Dioxide 19 L Anion Gap 18 BUN 115 H Creatinine 5.01 H* Estim Creat Clear Calc 15.5 Estimated GFR 12 Random Glucose 113 Lactic Acid Lactic Acid F/U @ 2Hr Lactic Acid F/U @ 4Hr Calcium 9.2 Phosphorus Magnesium Total Bilirubin 11.7 H Direct Bilirubin AST 46 H ALT 19 Alkaline Phosphatase 111 Ammonia Lactate Dehydrogenase Troponin I High Sens B-Natriuretic Peptide Total Protein 5.3 L Albumin 3.8 Lipase Urine Color Urine Appearance Urine pH Ur Specific [place] Urine Protein Urine Glucose (UA) Urine Ketones Urine Blood Urine Nitrite Ur Leukocyte Esterase Urine RBC Urine WBC Ur Squamous Epith Cells Urine Bacteria Hyaline Casts Urine Yeast Ur Random Sodium Stool Occult Blood COVID-19 (JESIKA) COVID-19 Clin Com Blood Type Antibody Screen SATYA, Polyspecific Positive SATYA Work-up Crossmatch 07/23/22 07/23/22 07/23/22 05:24 12:38 16:11 WBC 6.8 RBC 2.19 L D Hgb 7.5 L D Hct 21.5 L D MCV 98.2 H MCH 34.2 H MCHC 34.9 RDW 18.1 H Plt Count 31 L D MPV 9.9 Immature Gran % (Auto) 0.3 Neut % (Auto) 87.7 H Lymph % (Auto) 7.5 L [place] % (Auto) 3.5 Eos % (Auto) 1.0 Baso % (Auto) 0.0 Lymph # (Auto) 0.5 L [place] # (Auto) 0.2 Eos # (Auto) 0.1 Baso # (Auto) 0.0 Abs Immat Gran (auto) 0.02 Absolute Neuts (auto) 6.0 Absolute Nucleated RBC 0.000 Nucleated RBC % (auto) 0.0 Neutrophils % (Manual) Band Neutrophils % Lymphocytes % (Manual) Abs Neuts (Manual) Lymphocytes # (Manual) Platelet Estimate Plt Morphology Comment RBC Morphology [place] Cells Acanthocytes (Spur) Schistocytes Smear Tech's Comments PT INR APTT Fibrinogen VBG pH 7.40 VBG pCO2 28 VBG pO2 61 VBG HCO3 17 L VBG O2 Saturation 90.0 VBG Base Excess -6.0 Sodium Potassium Chloride Carbon Dioxide Anion Gap BUN Creatinine Estim Creat Clear Calc Estimated GFR Random Glucose Lactic Acid Lactic Acid F/U @ 2Hr Lactic Acid F/U @ 4Hr Calcium Phosphorus Magnesium Total Bilirubin Direct Bilirubin AST ALT Alkaline Phosphatase Ammonia Lactate Dehydrogenase Troponin I High Sens B-Natriuretic Peptide Total Protein Albumin Lipase Urine Color Urine Appearance Urine pH Ur Specific [place] Urine Protein Urine Glucose (UA) Urine Ketones Urine Blood Urine Nitrite Ur Leukocyte Esterase Urine RBC Urine WBC Ur Squamous Epith Cells Urine Bacteria Hyaline Casts Urine Yeast Ur Random Sodium Stool Occult Blood POSITIVE COVID-19 (JESIKA) COVID-19 Clin Com Blood Type Antibody Screen SATYA, Polyspecific Positive SATYA Work-up Crossmatch 07/24/22 07/24/22 07/24/22 02:46 02:46 02:46 WBC 7.2 RBC 1.67 L D Hgb 5.6 L* D Hct 16.6 L* D MCV 99.4 H MCH 33.5 H MCHC 33.7 RDW 19.0 H Plt Count 31 L MPV 10.6 Immature Gran % (Auto) 0.6 H Neut % (Auto) 87.3 H Lymph % (Auto) 8.2 L [place] % (Auto) 2.9 Eos % (Auto) 1.0 Baso % (Auto) 0.0 Lymph # (Auto) 0.6 L [place] # (Auto) 0.2 Eos # (Auto) 0.1 Baso # (Auto) 0.0 Abs Immat Gran (auto) 0.04 H Absolute Neuts (auto) 6.3 Absolute Nucleated RBC 0.000 Nucleated RBC % (auto) 0.0 Neutrophils % (Manual) Band Neutrophils % Lymphocytes % (Manual) Abs Neuts (Manual) Lymphocytes # (Manual) Platelet Estimate Plt Morphology Comment RBC Morphology [place] Cells Acanthocytes (Spur) Schistocytes Smear Tech's Comments PT 37.7 H INR 3.1 H APTT 63.2 H* D Fibrinogen 135 L VBG pH VBG pCO2 VBG pO2 VBG HCO3 VBG O2 Saturation VBG Base Excess Sodium 151 H Potassium 2.9 L Chloride 113 H Carbon Dioxide 24 Anion Gap 17 BUN 121 H Creatinine 4.86 H* Estim Creat Clear Calc 16.0 Estimated GFR 13 Random Glucose 154 H Lactic Acid Lactic Acid F/U @ 2Hr Lactic Acid F/U @ 4Hr Calcium 8.5 D Phosphorus 3.9 Magnesium Total Bilirubin 8.9 H Direct Bilirubin 4.0 H AST 28 ALT 13 Alkaline Phosphatase 78 Ammonia Lactate Dehydrogenase 146 Troponin I High Sens B-Natriuretic Peptide Total Protein 4.6 L Albumin 3.5 Lipase Urine Color Urine Appearance Urine pH Ur Specific [place] Urine Protein Urine Glucose (UA) Urine Ketones Urine Blood Urine Nitrite Ur Leukocyte Esterase Urine RBC Urine WBC Ur Squamous Epith Cells Urine Bacteria Hyaline Casts Urine Yeast Ur Random Sodium Stool Occult Blood COVID-19 (JESIKA) COVID-19 Clin Com Blood Type Antibody Screen SATYA, Polyspecific Positive SATYA Work-up Crossmatch 07/24/22 07/24/22 07/24/22 02:46 07:36 09:21 WBC 13.4 H RBC 2.35 L D Hgb 7.8 L D Hct 22.3 L D MCV 94.9 MCH 33.2 H MCHC 35.0 RDW 15.8 Plt Count 58 L D MPV 9.3 L Immature Gran % (Auto) Cancelled Neut % (Auto) Cancelled Lymph % (Auto) Cancelled [place] % (Auto) Cancelled Eos % (Auto) Cancelled Baso % (Auto) Cancelled Lymph # (Auto) Cancelled [place] # (Auto) Cancelled Eos # (Auto) Cancelled Baso # (Auto) Cancelled Abs Immat Gran (auto) Cancelled Absolute Neuts (auto) Cancelled Absolute Nucleated RBC 0.000 Nucleated RBC % (auto) 0.0 Neutrophils % (Manual) 94 H Band Neutrophils % 4 Lymphocytes % (Manual) 2 L Abs Neuts (Manual) 13.1 H Lymphocytes # (Manual) 0.3 L Platelet Estimate DECREASED Plt Morphology Comment NORMAL RBC Morphology NOTED [place] Cells 1+ (0-2) Acanthocytes (Spur) 3+ (>5) Schistocytes 1+ (0-2) Smear Tech's Comments PT INR APTT Fibrinogen VBG pH 7.39 VBG pCO2 35 VBG pO2 39 VBG HCO3 22 VBG O2 Saturation 64.0 VBG Base Excess -2.1 Sodium Potassium Chloride Carbon Dioxide Anion Gap BUN Creatinine Estim Creat Clear Calc Estimated GFR Random Glucose Lactic Acid Lactic Acid F/U @ 2Hr Lactic Acid F/U @ 4Hr Calcium Phosphorus Magnesium Total Bilirubin Direct Bilirubin AST ALT Alkaline Phosphatase Ammonia Lactate Dehydrogenase Troponin I High Sens B-Natriuretic Peptide Total Protein Albumin Lipase Urine Color Urine Appearance Urine pH Ur Specific [place] Urine Protein Urine Glucose (UA) Urine Ketones Urine Blood Urine Nitrite Ur Leukocyte Esterase Urine RBC Urine WBC Ur Squamous Epith Cells Urine Bacteria Hyaline Casts Urine Yeast Ur Random Sodium Stool Occult Blood COVID-19 (JESIKA) COVID-19 Clin Com Blood Type O Positive Antibody Screen NEGATIVE SATYA, Polyspecific Positive SATYA Work-up Crossmatch See Detail 07/24/22 09:21 WBC RBC Hgb Hct MCV MCH MCHC RDW Plt Count MPV Immature Gran % (Auto) Neut % (Auto) Lymph % (Auto) [place] % (Auto) Eos % (Auto) Baso % (Auto) Lymph # (Auto) [place] # (Auto) Eos # (Auto) Baso # (Auto) Abs Immat Gran (auto) Absolute Neuts (auto) Absolute Nucleated RBC Nucleated RBC % (auto) Neutrophils % (Manual) Band Neutrophils % Lymphocytes % (Manual) Abs Neuts (Manual) Lymphocytes # (Manual) Platelet Estimate Plt Morphology Comment RBC Morphology [place] Cells Acanthocytes (Spur) Schistocytes Smear Tech's Comments PT 26.6 H INR 2.2 H APTT 46.6 H D Fibrinogen 193 L VBG pH VBG pCO2 VBG pO2 VBG HCO3 VBG O2 Saturation VBG Base Excess Sodium Potassium Chloride Carbon Dioxide Anion Gap BUN Creatinine Estim Creat Clear Calc Estimated GFR Random Glucose Lactic Acid Lactic Acid F/U @ 2Hr Lactic Acid F/U @ 4Hr Calcium Phosphorus Magnesium Total Bilirubin Direct Bilirubin AST ALT Alkaline Phosphatase Ammonia Lactate Dehydrogenase Troponin I High Sens B-Natriuretic Peptide Total Protein Albumin Lipase Urine Color Urine Appearance Urine pH Ur Specific [place] Urine Protein Urine Glucose (UA) Urine Ketones Urine Blood Urine Nitrite Ur Leukocyte Esterase Urine RBC Urine WBC Ur Squamous Epith Cells Urine Bacteria Hyaline Casts Urine Yeast Ur Random Sodium Stool Occult Blood COVID-19 (JESIKA) COVID-19 Clin Com Blood Type Antibody Screen SATYA, Polyspecific Positive SATYA Work-up Crossmatch Airway Mallampati Class: II TM Dist: >3cm Neck ROM: Full Loose/Missing/Broken Teeth: No Heart: RRR Lungs: clear anteriorly Assessment and Plan Assessment Anesthesia Assessment: Anesthesia Plan Discussed and Chart Reviewed Final Anesthetic Review History of Problems with Anesthesia: No NPO: Yes ASA Class: V and Emergency Final Preanesthetic Review: Meds/Allgs Chart Reviewed, Consent Obtained/Reviewed, Anes Risks/Benef Reviewed and DNR Form (If Appl.) Patient Risk: High Procedure Risk: Intermediate Anesthetic Plan Anesthetic Plan: GA Disposition: Inp. Admit - ICU
--- NOTE | 2022-07-24 14:04 | W.PM.OPN ---
Operative Note Operative Note Date of Service: 07/24/22 Narrative: FLEXIBLE TRANSORAL UPPER GASTROINTESTINAL ENDOSCOPY WITH EPINEPHRINE INJECTION AND HE MOST PRE Pre-op diagnosis: Cirrhosis with coagulopathy, GI bleed Post-op diagnosis: Portal hypertensive gastropathy, duodenal ulcer Endoscopist:Dieter Churchill MD Anesthesia: General anesthesia with endotracheal intubation Consent: Indications for the procedure and potential complications of bleeding, perforation, reaction to medications and missed diagnosis were discussed with the patient and informed consent was obtained. Instrument: Olympus GIF H 190 mid size upper endoscope Monitoring: Vital signs and clinical assessment, continuous EKG monitoring, Pulse oximetry, Carbon Dioxide monitoring and blood pressure monitoring were done throughout the procedure. Procedure: The patient was placed in the left lateral decubitis position and pre-procedure medications were administered and a bite block was placed. The endoscope was inserted into the mouth and advanced under direct vision to the third part of duodenum. A careful inspection was made as the upper endoscope was withdrawn including a retroflexed examination of the proximal stomach; Findings and interventions are described below. Findings: Larynx: ET tube in place. Persistent oozing from mucosa of mouth and tongue Esophagus: GE junction at 40 cms, a non obstructing Schatzki's ring. No varices, esophagitis or Smith's. Stomach: Mosiac appearance of the gastric mucosa due to portal hypertensive gastropathy. No gastric varices noted and grade 2 flap valve on retroflexed examination of the cardia. Duodenum: 3 cms area of polypoidal mucosa in the posterior wall of the bulb with a 2 cms non-bleeding ulcer without high risk stigmata. Slow oozing noted from area of polypoidal mucosa below the ulcer - treated with 3 cc of epinephrine injection (1:10,000) followed by Hemospray with cessation. Normal descending duodenum. Intervention: Epinephrine injection followed by Hemospray Impression and Post Procedure Diagnosis: Endoscopy Findings: LARYNX: ET tube in place. Persistent oozing from mucosa of mouth and tongue ESOPHAGUS: Schatzki's ring and no varices or bleeding seen STOMACH: Portal hypertensive gastropathy, no gastric varices or blood in the stomach DUODENUM: 3 cms area of polypoidal mucosa in the posterior wall of the bulb with a 2 cms non-bleeding ulcer without high risk stigmata. Slow oozing noted from area of polypoidal mucosa below the ulcer - treated with 3 cc of epinephrine injection (1:10,000) followed by Hemospray with cessation. Pt has diffuse mucosal bleeding from the mouth due to coagulopathy. He may have additonal source of bleeding in the colon or small bowel. Plan: Monitor CBC and INR twice daily and transfuse prn x 48 hrs If he has continued bleeding, he can be transitioned to comfort care.. Dr Hutchison is covering this weekend.
--- NOTE | 2022-07-24 15:59 | PM.CCPN ---
Subjective Subjective Date of Service: 07/24/22 Interval History: 56-year-old chronic alcoholic with alcoholic cirrhosis longstanding portal hypertension and hepatic failure who comes in every 7-10 days to remove several L of ascitic fluid from his abdomen and he presented this time in his similar fashion but he was per more profoundly anemic guaiac-positive stool and and severely coagulopathic and had a a very high volume upper GI bleed requiring a was the equal and of a mass transfusion of multiple units of red cells 3 units over over 24 hours of a platelets he required cryoprecipitate because of severe hypo fibrinogen E Becky a.m. thrombocytopenia so he required cryoprecipitate fresh frozen plasma and as the prothrombin time and PTT started to diminish the hemorrhaging started to diminish upper GI found a duodenal ulcer and was not apparent that was actively bleeding but they they did some some cautery and epinephrine injection varices that were not actively bleeding of obviously were noted as well and and the patient really received a very high volume of of blood products for the above reason his pressure was always well-supported initially with Levophed and then when he started with the GI bleeding the so we could stay ahead and preserve his pressure we started vasopressin he has been on octreotide as well a came in with acute hepatorenal syndrome with his urine output being poor but his urine sodium being less than 20 it appeared consistent with a paddle renal his creatinine is improved now down despite all of this hemodynamic disarray and he has remained in normal sinus rhythm current adeno in his is pressures are at least 90-100 and we were concerned adeno obviously about the development of the then either congestion or or an acute lung injury related to 1 of the transfuse products but were observing thus far he still is able to respond no loss of mental status and we have stable hemoglobin for the time being Critical Care Time (minutes): 45 Physical Exam Vital Signs: Vital Signs: Last Vital Signs Temp 97.1 F 07/24/22 15:26 Pulse 107 H 07/24/22 15:26 Resp 15 07/24/22 15:26 BP 117/74 07/24/22 15:26 Pulse Ox 99 07/24/22 15:00 O2 Del Method Nasal Cannula 07/24/22 15:00 O2 Flow Rate 3 07/24/22 15:00 Oxygen Flow Rate 3 07/20/22 14:43 BMI result Body Mass Index 25.3 lethargic but still oriented x2 and he does respond appropriately if prodded currently lungs with diminished bilateral breath sounds but no adventitious sounds bedside echo shows preserved left ventricular systolic function abdomen distended but soft and nontender Objective Data Labs 07/24/22 09:21 07/24/22 02:46 Labs: Laboratory Results - last 24 hr 07/21/22 07/23/22 07/23/22 06:42 05:24 16:11 WBC RBC Hgb Hct MCV MCH MCHC RDW Plt Count MPV Immature Gran % (Auto) Neut % (Auto) Lymph % (Auto) [place] % (Auto) Eos % (Auto) Baso % (Auto) Lymph # (Auto) [place] # (Auto) Eos # (Auto) Baso # (Auto) Abs Immat Gran (auto) Absolute Neuts (auto) Absolute Nucleated RBC Nucleated RBC % (auto) Neutrophils % (Manual) Band Neutrophils % Lymphocytes % (Manual) Abs Neuts (Manual) Lymphocytes # (Manual) Platelet Estimate Plt Morphology Comment RBC Morphology [place] Cells Acanthocytes (Spur) Schistocytes Smear Path Review SEE NOTE PT INR APTT Fibrinogen VBG pH VBG pCO2 VBG pO2 VBG HCO3 VBG O2 Saturation VBG Base Excess Sodium Potassium Chloride Carbon Dioxide Anion Gap BUN Creatinine Estim Creat Clear Calc Estimated GFR Random Glucose Calcium Phosphorus Total Bilirubin Direct Bilirubin AST ALT Alkaline Phosphatase Lactate Dehydrogenase Total Protein Albumin Stool Occult Blood POSITIVE Blood Type O Negative Antibody Screen NEGATIVE Crossmatch See Detail 07/24/22 07/24/22 07/24/22 02:46 02:46 02:46 WBC 7.2 RBC 1.67 L D Hgb 5.6 L* D Hct 16.6 L* D MCV 99.4 H MCH 33.5 H MCHC 33.7 RDW 19.0 H Plt Count 31 L MPV 10.6 Immature Gran % (Auto) 0.6 H Neut % (Auto) 87.3 H Lymph % (Auto) 8.2 L [place] % (Auto) 2.9 Eos % (Auto) 1.0 Baso % (Auto) 0.0 Lymph # (Auto) 0.6 L [place] # (Auto) 0.2 Eos # (Auto) 0.1 Baso # (Auto) 0.0 Abs Immat Gran (auto) 0.04 H Absolute Neuts (auto) 6.3 Absolute Nucleated RBC 0.000 Nucleated RBC % (auto) 0.0 Neutrophils % (Manual) Band Neutrophils % Lymphocytes % (Manual) Abs Neuts (Manual) Lymphocytes # (Manual) Platelet Estimate Plt Morphology Comment RBC Morphology [place] Cells Acanthocytes (Spur) Schistocytes Smear Path Review PT 37.7 H INR 3.1 H APTT 63.2 H* D Fibrinogen 135 L VBG pH VBG pCO2 VBG pO2 VBG HCO3 VBG O2 Saturation VBG Base Excess Sodium 151 H Potassium 2.9 L Chloride 113 H Carbon Dioxide 24 Anion Gap 17 BUN 121 H Creatinine 4.86 H* Estim Creat Clear Calc 16.0 Estimated GFR 13 Random Glucose 154 H Calcium 8.5 D Phosphorus 3.9 Total Bilirubin 8.9 H Direct Bilirubin 4.0 H AST 28 ALT 13 Alkaline Phosphatase 78 Lactate Dehydrogenase 146 Total Protein 4.6 L Albumin 3.5 Stool Occult Blood Blood Type Antibody Screen Crossmatch 07/24/22 07/24/22 07/24/22 02:46 07:36 09:21 WBC 13.4 H RBC 2.35 L D Hgb 7.8 L D Hct 22.3 L D MCV 94.9 MCH 33.2 H MCHC 35.0 RDW 15.8 Plt Count 58 L D MPV 9.3 L Immature Gran % (Auto) Cancelled Neut % (Auto) Cancelled Lymph % (Auto) Cancelled [place] % (Auto) Cancelled Eos % (Auto) Cancelled Baso % (Auto) Cancelled Lymph # (Auto) Cancelled [place] # (Auto) Cancelled Eos # (Auto) Cancelled Baso # (Auto) Cancelled Abs Immat Gran (auto) Cancelled Absolute Neuts (auto) Cancelled Absolute Nucleated RBC 0.000 Nucleated RBC % (auto) 0.0 Neutrophils % (Manual) 94 H Band Neutrophils % 4 Lymphocytes % (Manual) 2 L Abs Neuts (Manual) 13.1 H Lymphocytes # (Manual) 0.3 L Platelet Estimate DECREASED Plt Morphology Comment NORMAL RBC Morphology NOTED [place] Cells 1+ (0-2) Acanthocytes (Spur) 3+ (>5) Schistocytes 1+ (0-2) Smear Path Review PT INR APTT Fibrinogen VBG pH 7.39 VBG pCO2 35 VBG pO2 39 VBG HCO3 22 VBG O2 Saturation 64.0 VBG Base Excess -2.1 Sodium Potassium Chloride Carbon Dioxide Anion Gap BUN Creatinine Estim Creat Clear Calc Estimated GFR Random Glucose Calcium Phosphorus Total Bilirubin Direct Bilirubin AST ALT Alkaline Phosphatase Lactate Dehydrogenase Total Protein Albumin Stool Occult Blood Blood Type O Positive Antibody Screen NEGATIVE Crossmatch See Detail 07/24/22 09:21 WBC RBC Hgb Hct MCV MCH MCHC RDW Plt Count MPV Immature Gran % (Auto) Neut % (Auto) Lymph % (Auto) [place] % (Auto) Eos % (Auto) Baso % (Auto) Lymph # (Auto) [place] # (Auto) Eos # (Auto) Baso # (Auto) Abs Immat Gran (auto) Absolute Neuts (auto) Absolute Nucleated RBC Nucleated RBC % (auto) Neutrophils % (Manual) Band Neutrophils % Lymphocytes % (Manual) Abs Neuts (Manual) Lymphocytes # (Manual) Platelet Estimate Plt Morphology Comment RBC Morphology [place] Cells Acanthocytes (Spur) Schistocytes Smear Path Review PT 26.6 H INR 2.2 H APTT 46.6 H D Fibrinogen 193 L VBG pH VBG pCO2 VBG pO2 VBG HCO3 VBG O2 Saturation VBG Base Excess Sodium Potassium Chloride Carbon Dioxide Anion Gap BUN Creatinine Estim Creat Clear Calc Estimated GFR Random Glucose Calcium Phosphorus Total Bilirubin Direct Bilirubin AST ALT Alkaline Phosphatase Lactate Dehydrogenase Total Protein Albumin Stool Occult Blood Blood Type Antibody Screen Crossmatch Microbiology Microbiology Results: Microbiology 07/20/22 12:10 Blood - Venous Blood Culture - Preliminary No growth after 48 hours. 07/20/22 12:10 Blood - Venous Blood Culture - Preliminary No growth after 48 hours. 07/20/22 Unknown Urine clean catch - Urine nascimento top Urine Culture - Final Nicol albicans Progress Note: A&P Assessment and plan (1) Hematochezia: Status: Acute (2) GI bleed not requiring more than 4 units of blood in 24 hours, ICU, or surgery: Status: Acute (3) Hyperkalemia: Status: Acute (4) Hepatorenal syndrome: Status: Acute (5) Alcoholic cirrhosis: Status: Acute (6) SAUL (acute kidney injury): Status: Acute (7) Hypoxia: Status: Acute (8) Acute UTI: Status: Acute (9) End stage liver disease: Status: Acute (10) Alcoholic cirrhosis: Status: Acute (11) Gram-negative bacteremia: Status: Acute (12) Ascites: Status: Acute (13) Hyponatremia: Status: Acute (14) UTI (urinary tract infection): Status: Acute (15) Acute hyponatremia: Status: Acute (16) Non-compliant patient: Status: Acute (17) Duodenal ulcer: Status: Acute (18) Metabolic acidosis: Status: Acute (19) Hypokalemia due to excessive gastrointestinal loss of potassium: Status: Acute (20) Hypernatremia: Status: Acute Plan very advanced end-stage liver failure due to alcoholic cirrhosis with a paddle renal syndrome and acute upper GI bleeding which is now beginning to stabilize but requiring large volume of of blood products so will watch for respiratory complications which I expected some level none and because it was reported that he starting to develop some rales I will try 40 mg of IV Lasix followed by a Lasix drip if not effective in in of itself stat chest x-ray to confirm but intubation is not an option the patient may that clear Quality Stroke Does the patient have a stroke diagnosis?: No VTE Prior VTE?: No VTE Risk Level:: Medical - moderate - high VTE Device Contraindication: N/A - Device Ordered VTE Drug Contraindication: Treatment Not Indicated
--- NOTE | 2022-07-24 16:10 | P.PNNP_ITS ---
Subjective Subjective Date of Service: 07/24/22 Interval history: Events noted UO on the low side ON Pressors Physical Exam Vital Signs: Vital Signs: Last Vital Signs Temp 97.1 F 07/24/22 15:26 Pulse 107 H 07/24/22 15:26 Resp 15 07/24/22 15:26 BP 117/74 07/24/22 15:26 Pulse Ox 99 07/24/22 15:00 O2 Del Method Nasal Cannula 07/24/22 15:00 O2 Flow Rate 3 07/24/22 15:00 Oxygen Flow Rate 3 07/20/22 14:43 BMI result Body Mass Index 25.3 Const: General: no acute distress and ill appearing Limitations: no limitations and altered mental status Neck: Neck: Yes normal visual inspection, Yes no meningeal signs and Yes supple Lymphatic: no lymphadenopathy noted Resp: Auscultation: clear to auscultation bilaterally Cardio: Palpation: normal PMI Rate: regular rate and tachycardic Rhythm: regular rhythm Heart sounds: S1 normal heart sound present, S2 normal heart sound present, no gallops, no murmurs and no rubs GI: Inspection: Yes normal to inspection and Yes distended Palpation (GI): Soft to palpation, nontender, no guarding, not rigid and Ascites present Auscultation: normal bowel sounds Skin: General skin exam: spider nevi and other ( warm) Rashes: no rashes Wounds: no wounds Neuro: General: tone normal, moves all extremities and no meningeal signs Gait exam (Neuro): Normal gait present Extrem: General: Yes normal to inspection, Yes no pedal edema, No clubbing, No cyanosis and Yes edema (1+ bilateral) Objective Data Labs 07/24/22 09:21 07/24/22 02:46 Labs: Laboratory Results - last 24 hr 07/21/22 07/23/22 07/23/22 06:42 05:24 16:11 WBC RBC Hgb Hct MCV MCH MCHC RDW Plt Count MPV Immature Gran % (Auto) Neut % (Auto) Lymph % (Auto) [place] % (Auto) Eos % (Auto) Baso % (Auto) Lymph # (Auto) [place] # (Auto) Eos # (Auto) Baso # (Auto) Abs Immat Gran (auto) Absolute Neuts (auto) Absolute Nucleated RBC Nucleated RBC % (auto) Neutrophils % (Manual) Band Neutrophils % Lymphocytes % (Manual) Abs Neuts (Manual) Lymphocytes # (Manual) Platelet Estimate Plt Morphology Comment RBC Morphology [place] Cells Acanthocytes (Spur) Schistocytes Smear Path Review SEE NOTE PT INR APTT Fibrinogen VBG pH VBG pCO2 VBG pO2 VBG HCO3 VBG O2 Saturation VBG Base Excess Sodium Potassium Chloride Carbon Dioxide Anion Gap BUN Creatinine Estim Creat Clear Calc Estimated GFR Random Glucose Calcium Phosphorus Total Bilirubin Direct Bilirubin AST ALT Alkaline Phosphatase Lactate Dehydrogenase Total Protein Albumin Stool Occult Blood POSITIVE Blood Type O Negative Antibody Screen NEGATIVE Crossmatch See Detail 07/24/22 07/24/22 07/24/22 02:46 02:46 02:46 WBC 7.2 RBC 1.67 L D Hgb 5.6 L* D Hct 16.6 L* D MCV 99.4 H MCH 33.5 H MCHC 33.7 RDW 19.0 H Plt Count 31 L MPV 10.6 Immature Gran % (Auto) 0.6 H Neut % (Auto) 87.3 H Lymph % (Auto) 8.2 L [place] % (Auto) 2.9 Eos % (Auto) 1.0 Baso % (Auto) 0.0 Lymph # (Auto) 0.6 L [place] # (Auto) 0.2 Eos # (Auto) 0.1 Baso # (Auto) 0.0 Abs Immat Gran (auto) 0.04 H Absolute Neuts (auto) 6.3 Absolute Nucleated RBC 0.000 Nucleated RBC % (auto) 0.0 Neutrophils % (Manual) Band Neutrophils % Lymphocytes % (Manual) Abs Neuts (Manual) Lymphocytes # (Manual) Platelet Estimate Plt Morphology Comment RBC Morphology [place] Cells Acanthocytes (Spur) Schistocytes Smear Path Review PT 37.7 H INR 3.1 H APTT 63.2 H* D Fibrinogen 135 L VBG pH VBG pCO2 VBG pO2 VBG HCO3 VBG O2 Saturation VBG Base Excess Sodium 151 H Potassium 2.9 L Chloride 113 H Carbon Dioxide 24 Anion Gap 17 BUN 121 H Creatinine 4.86 H* Estim Creat Clear Calc 16.0 Estimated GFR 13 Random Glucose 154 H Calcium 8.5 D Phosphorus 3.9 Total Bilirubin 8.9 H Direct Bilirubin 4.0 H AST 28 ALT 13 Alkaline Phosphatase 78 Lactate Dehydrogenase 146 Total Protein 4.6 L Albumin 3.5 Stool Occult Blood Blood Type Antibody Screen Crossmatch 05/08/1107/24/22 07/24/22 02:46 07:36 09:21 WBC 13.4 H RBC 2.35 L D Hgb 7.8 L D Hct 22.3 L D MCV 94.9 MCH 33.2 H MCHC 35.0 RDW 15.8 Plt Count 58 L D MPV 9.3 L Immature Gran % (Auto) Cancelled Neut % (Auto) Cancelled Lymph % (Auto) Cancelled [place] % (Auto) Cancelled Eos % (Auto) Cancelled Baso % (Auto) Cancelled Lymph # (Auto) Cancelled [place] # (Auto) Cancelled Eos # (Auto) Cancelled Baso # (Auto) Cancelled Abs Immat Gran (auto) Cancelled Absolute Neuts (auto) Cancelled Absolute Nucleated RBC 0.000 Nucleated RBC % (auto) 0.0 Neutrophils % (Manual) 94 H Band Neutrophils % 4 Lymphocytes % (Manual) 2 L Abs Neuts (Manual) 13.1 H Lymphocytes # (Manual) 0.3 L Platelet Estimate DECREASED Plt Morphology Comment NORMAL RBC Morphology NOTED [place] Cells 1+ (0-2) Acanthocytes (Spur) 3+ (>5) Schistocytes 1+ (0-2) Smear Path Review PT INR APTT Fibrinogen VBG pH 7.39 VBG pCO2 35 VBG pO2 39 VBG HCO3 22 VBG O2 Saturation 64.0 VBG Base Excess -2.1 Sodium Potassium Chloride Carbon Dioxide Anion Gap BUN Creatinine Estim Creat Clear Calc Estimated GFR Random Glucose Calcium Phosphorus Total Bilirubin Direct Bilirubin AST ALT Alkaline Phosphatase Lactate Dehydrogenase Total Protein Albumin Stool Occult Blood Blood Type O Positive Antibody Screen NEGATIVE Crossmatch See Detail 07/24/22 09:21 WBC RBC Hgb Hct MCV MCH MCHC RDW Plt Count MPV Immature Gran % (Auto) Neut % (Auto) Lymph % (Auto) [place] % (Auto) Eos % (Auto) Baso % (Auto) Lymph # (Auto) [place] # (Auto) Eos # (Auto) Baso # (Auto) Abs Immat Gran (auto) Absolute Neuts (auto) Absolute Nucleated RBC Nucleated RBC % (auto) Neutrophils % (Manual) Band Neutrophils % Lymphocytes % (Manual) Abs Neuts (Manual) Lymphocytes # (Manual) Platelet Estimate Plt Morphology Comment RBC Morphology [place] Cells Acanthocytes (Spur) Schistocytes Smear Path Review PT 26.6 H INR 2.2 H APTT 46.6 H D Fibrinogen 193 L VBG pH VBG pCO2 VBG pO2 VBG HCO3 VBG O2 Saturation VBG Base Excess Sodium Potassium Chloride Carbon Dioxide Anion Gap BUN Creatinine Estim Creat Clear Calc Estimated GFR Random Glucose Calcium Phosphorus Total Bilirubin Direct Bilirubin AST ALT Alkaline Phosphatase Lactate Dehydrogenase Total Protein Albumin Stool Occult Blood Blood Type Antibody Screen Crossmatch Microbiology Microbiology Results: Microbiology 07/20/22 12:10 Blood - Venous Blood Culture - Preliminary No growth after 48 hours. 07/20/22 12:10 Blood - Venous Blood Culture - Preliminary No growth after 48 hours. 07/20/22 Unknown Urine clean catch - Urine nascimento top Urine Culture - Final Nicol albicans Procedures Date of Service Date of Service: 07/24/22 Assessment & Plan Assessment and plan (1) Hepatorenal syndrome: Status: Acute (2) Alcoholic cirrhosis: Status: Acute (3) SAUL (acute kidney injury): Status: Acute (4) End stage liver disease: Status: Acute Plan SAUL due to pre renal state in the setting of ETOH liver cirrhosis Advanced liver disease Hepatorenal syndrome hypervolemic hyponatremia in the setting of hepatic physiology - resolving Large ascites [place] Acidosis with resp alkalosis REC Hypernatremia -nFree water furosemide d/c'd Watch K octreotide maintain systolic blood pressure more than 90 mm of mercury -Agree with pressors follow kidney function and electrolytes Time Spent With Patient Time: Total time managing care of this patient today ____ minutes. Progress Note: Quality Stroke Does the patient have a stroke diagnosis?: No
[2022-07-24] MEDS: Furosemide 40 MG/4 ML VIAL IVPUSH (18:38)
--- NOTE | 2022-07-24 19:05 | PC.NURSE ---
Assumed care of patient 07:00 Pt had copious roe red stool. MD to bedside to assess. Plan for EGD with GI MD today, continue octreotide gtt and vaspressin gtt. 08:21-09:05 1 platelet transfused. 11:27-12:20 FFP transfused 12:11-13:02 Cryo transfused GI MD assessed patient, pt transported to EGD procedure 13:34 with OR staff 14:20 patient returned from procedure. OR staff and anesthesia intubated patient in procedure, ET tube 7.5, 23@lip. Vent settings AC 18/400/5.0/100% RT and RN at bedside to receive bedside report. Patient transitioned to PSV trial per ICU MD. Volumes 350-400. Opens eyes, follows commands. Per MD patient extubated 14:30 and transitioned to 3L NC 15:03-16:42 platelets transfused 18:00 patient had increased work of breath, course crackles throughout and insp/exp wheezing throughout. RR 17, SaO2 95% 3L NC. MD notified and new orders: 40 mg lasix IVP and stat CXR. Lasix given and CXR obtained. 3 roe red bowel movements total this shift. Patient repositioned Q2H, mouth care Q2H, prevlon system used, high fall cautions in place, [employer]as[employer] camera in place for medical lines. Above information communicated in RN to RN report.
[2022-07-24 20:36] LABS: VBG HCO3 23 mmol/L (22-26); VBG pCO2 46 mmHg; VBG pO2 55 mmHg
[2022-07-24 20:57] LABS: Basophils Percent Auto 0.1 % (0-2); Eosinophils Percent Auto 0.1 % (0-4); Imm Gran Abs Auto 0.07 X10*3/uL (0.00-0.03); Imm Gran Pct Auto 0.5 % (0.0-0.4); Lymphocytes Absolute Auto 0.5 X10*3/uL (1.2-4.9); Lymphocytes Percent Auto 3.7 % (20-40); MANUAL DIFF FLAG SCAN; Mean Corpuscular HGB Conc 35.7 g/dl (31.0-36.0); Mean Corpuscular Hemoglobin 33.7 pg (27.0-33.0); Mean Corpuscular Volume 94.2 fL (80.0-98.0); Monocytes Absolute Auto 0.4 X10*3/uL (0.1-1.2); Monocytes Percent Auto 2.7 % (2-11); Neutrophils Absolute Auto 12.4 x10*3/uL (2.0-8.3); Neutrophils Percent Auto 92.9 % (45-73); Platelet Count 46 X10*3/uL (160-400); Red Blood Count 2.08 X10*6/uL (4.60-5.80); Red Cell Distribution Width 17.2 % (11.0-16.0); SCAN SMEAR FLAG 1; White Blood Count 13.3 X10*3/uL (4.8-10.8)
[2022-07-24 21:05] LABS: Fibrinogen 265 MG/DL (259-690); Prothrombin Time 23.5 SEC (10.0-13.1)
[2022-07-24 21:07] LABS: Partial Thromboplastin Time 40.6 SEC (26.0-36.4)
[2022-07-24 21:08] LABS: Hematocrit 19.6 % (42.0-52.0)
[2022-07-24 21:17] LABS: Alanine Aminotransferase 13 U/L (0-40); Albumin Level 3.2 g/dL (3.5-5.0); Alkaline Phosphatase 77 U/L (39-117); Anion Gap 15 (12-20); Aspartate Amino Transferase 31 U/L (5-37); Bilirubin Total 12.7 mg/dL (0.0-1.0); Blood Urea Nitrogen 101 mg/dL (9-16); Calcium 7.7 mg/dL (8.4-10.2); Carbon Dioxide 21 mmol/L (22-29); Chloride 112 mmol/L (96-108); Creatinine Clr Calc Pharmacy 20.8; Estimated Glomerular Filt Rate 17; Glucose Random 369 mg/dL (60-115); Potassium 3.3 mmol/L (3.3-5.1); Sodium 145 mmol/L (135-145); Total Protein 4.6 g/dL (6.5-8.0)
[2022-07-24 21:19] LABS: SLIDE REVIEW VERIFIED
[2022-07-24 21:30] LABS: Glucose, Whole Blood 301 mg/dL (60-115)
[2022-07-24] MEDS: Insulin Lispro 100 UNIT/ML 3 ML VIAL SUBCUT (21:44)
[2022-07-24 21:50] LABS: B Type Natriuretic Peptide 2394 pg/mL (<100)
[2022-07-24] MEDS: Furosemide 200 MG in 0.9 % Sodium Chloride 80 ML IVCONT (22:16)
[2022-07-24] MEDS: Albumin Human 25 % 100 ML 500 ML IV ×2 (22:20→23:30)
[2022-07-24] MEDS: Metoprolol Tartrate 5 MG/5 ML VIAL IVPUSH (22:56)
[2022-07-24] MEDS: KCl 20 mEq in 5 % Dextrose 20 MEQ/1,000 ML IV.SOLN 75 MEQ IVCONT (23:39)
[2022-07-25] VITALS (21 sets, daily range): BP systolic 83–128; BP diastolic 55–85; PULSE 92–101; RESP 14–32; TEMP 35.5–36.6; O2SAT 90–97; BMI 28.0
[2022-07-25 00:13] LABS: Venous Blood Gas Refer to POC result
--- NOTE | 2022-07-25 00:32 | W.PM.CCHP ---
Procedures Date of Service Date of Service: 07/24/22 Central Line Placement Left IJ: Central Line Comments: verbal consent obtained from the patient as it was emergently needed Consent for Procedure: Elective - informed consent obtained Time out performed: Yes Sterile Technique Used: Yes Patient placed on monitor/pulse ox: Yes prep: mask, gown and gloves Central line prep: Chlorhexidine scrub Local anesthesia used: lidocaine 1% Amount of anesthesia used (ml): 5 Ultrasound used for placement: Yes Central line lumen inserted: triple Post procedure: sutured in place, good blood return, all ports aspirated, flushed, capped and sterile dressing applied Post procedure x-ray: tip of catheter in good position and no pneumothorax seen Patient tolerated procedure: well and no complications Complications: none
[2022-07-25 01:06] LABS: Basophils Percent Auto 0.1 % (0-2); Eosinophils Percent Auto 0.1 % (0-4); Hematocrit 22.5 % (42.0-52.0); Hemoglobin 7.7 g/dl (14.0-18.0); Imm Gran Abs Auto 0.09 X10*3/uL (0.00-0.03); Imm Gran Pct Auto 0.6 % (0.0-0.4); Lymphocytes Absolute Auto 0.6 X10*3/uL (1.2-4.9); Lymphocytes Percent Auto 4.1 % (20-40); MANUAL DIFF FLAG SCAN; Mean Corpuscular HGB Conc 34.2 g/dl (31.0-36.0); Mean Corpuscular Hemoglobin 32.5 pg (27.0-33.0); Mean Corpuscular Volume 94.9 fL (80.0-98.0); Monocytes Absolute Auto 0.4 X10*3/uL (0.1-1.2); Monocytes Percent Auto 2.8 % (2-11); Neutrophils Absolute Auto 13.1 x10*3/uL (2.0-8.3); Neutrophils Percent Auto 92.3 % (45-73); Red Blood Count 2.37 X10*6/uL (4.60-5.80); Red Cell Distribution Width 17.1 % (11.0-16.0); SCAN SMEAR FLAG 1; White Blood Count 14.2 X10*3/uL (4.8-10.8)
[2022-07-25 01:19] LABS: Alanine Aminotransferase 12 U/L (0-40); Albumin Level 4.1 g/dL (3.5-5.0); Alkaline Phosphatase 76 U/L (39-117); Anion Gap 16 (12-20); Aspartate Amino Transferase 29 U/L (5-37); Bilirubin Total 13.3 mg/dL (0.0-1.0); Blood Urea Nitrogen 102 mg/dL (9-16); Carbon Dioxide 23 mmol/L (22-29); Chloride 112 mmol/L (96-108); Creatinine Clr Calc Pharmacy 20.5; Estimated Glomerular Filt Rate 17; Glucose Random 213 mg/dL (60-115); Sodium 148 mmol/L (135-145); Total Protein 5.5 g/dL (6.5-8.0)
[2022-07-25 01:24] LABS: Platelet Count 44 X10*3/uL (160-400)
[2022-07-25] MEDS: Vasopressin 20 UNIT/100 ML INFUS..BTL 12 UNIT IV ×3 (03:38→18:27)
[2022-07-25 03:48] LABS: Glucose, Whole Blood 176 mg/dL (60-115)
[2022-07-25] MEDS: Insulin Lispro 100 UNIT/ML 3 ML VIAL SUBCUT ×2 (03:48→16:32)
[2022-07-25 05:54] LABS: VBG Base Excess -4.4 mmol/L; VBG HCO3 23 mmol/L (22-26); VBG pCO2 54 mmHg; VBG pH 7.23 (7.32-7.43); VBG pO2 52 mmHg
[2022-07-25 05:55] LABS: MANUAL DIFF FLAG NO
[2022-07-25 05:57] LABS: Venous Blood Gas Refer to POC result
[2022-07-25 06:03] LABS: Basophils Percent Auto 0.2 % (0-2); Eosinophils Percent Auto 0.1 % (0-4); Hematocrit 22.8 % (42.0-52.0); Hemoglobin 7.7 g/dl (14.0-18.0); Imm Gran Abs Auto 0.09 X10*3/uL (0.00-0.03); Imm Gran Pct Auto 0.7 % (0.0-0.4); Lymphocytes Absolute Auto 0.7 X10*3/uL (1.2-4.9); Mean Corpuscular HGB Conc 33.8 g/dl (31.0-36.0); Mean Corpuscular Hemoglobin 32.5 pg (27.0-33.0); Mean Corpuscular Volume 96.2 fL (80.0-98.0); Monocytes Absolute Auto 0.4 X10*3/uL (0.1-1.2); Monocytes Percent Auto 2.7 % (2-11); Neutrophils Absolute Auto 12.2 x10*3/uL (2.0-8.3); Neutrophils Percent Auto 91.3 % (45-73); Red Blood Count 2.37 X10*6/uL (4.60-5.80); Red Cell Distribution Width 17.1 % (11.0-16.0); SCAN SMEAR FLAG 1; White Blood Count 13.3 X10*3/uL (4.8-10.8)
--- NOTE | 2022-07-25 06:03 | PC.NURSE ---
ABDOMINAL PRESSURE = APPROX 20
[2022-07-25 06:04] LABS: Platelet Count 43 X10*3/uL (160-400)
[2022-07-25 06:06] LABS: Fibrinogen 239 MG/DL (259-690); Prothrombin Time 23.7 SEC (10.0-13.1)
[2022-07-25 06:09] LABS: Partial Thromboplastin Time 43.8 SEC (26.0-36.4)
[2022-07-25 06:19] LABS: Bilirubin Direct 5.4 mg/dL (0.0-0.5)
[2022-07-25 06:20] LABS: Alanine Aminotransferase 11 U/L (0-40); Albumin Level 3.9 g/dL (3.5-5.0); Alkaline Phosphatase 77 U/L (39-117); Anion Gap 16 (12-20); Aspartate Amino Transferase 31 U/L (5-37); Bilirubin Total 14.6 mg/dL (0.0-1.0); Blood Urea Nitrogen 101 mg/dL (9-16); Carbon Dioxide 21 mmol/L (22-29); Chloride 112 mmol/L (96-108); Creatinine Clr Calc Pharmacy 22.9; Estimated Glomerular Filt Rate 17; Glucose Random 172 mg/dL (60-115); Sodium 146 mmol/L (135-145); Total Protein 5.4 g/dL (6.5-8.0)
[2022-07-25] MEDS: Potassium Chloride Packet 20 MEQ PACKET 40 MEQ PO (09:56)
[2022-07-25] MEDS: Thiamine HCL 100 MG in 0.9 % Sodium Chloride 100 ML 202 MG IV (09:59)
[2022-07-25] MEDS: Octreotide Acetate 500 MCG in 0.9 % Sodium Chloride 500 ML 50.1 MCG IVCONT (10:09)
[2022-07-25 10:38] LABS: Glucose, Whole Blood 148 mg/dL (60-115)
[2022-07-25 14:42] LABS: VBG Base Excess -9.7 mmol/L; VBG HCO3 21 mmol/L (22-26); VBG pCO2 81 mmHg; VBG pH 7.02 (7.32-7.43); VBG pO2 53 mmHg
[2022-07-25 14:43] LABS: Venous Blood Gas Refer to POC result
--- NOTE | 2022-07-25 14:53 | PM.PNNEP ---
Subjective Subjective Date of Service: 07/25/22 Interval history: Events noted Non oliguric Worse today ON Pressors Physical Exam Vital Signs: Vital Signs: Last Vital Signs Temp 96.5 F L 07/25/22 07:00 Pulse 96 07/25/22 14:00 Resp 22 H 07/25/22 14:00 BP 102/64 07/25/22 14:00 Pulse Ox 90 L 07/25/22 14:00 O2 Del Method Non-Rebreather Ma sk 07/25/22 14:00 O2 Flow Rate 12 07/25/22 14:00 Oxygen Flow Rate 3 07/20/22 14:43 BMI result Body Mass Index 28.0 Const: General: no acute distress and ill appearing Limitations: no limitations and altered mental status Neck: Neck: Yes normal visual inspection, Yes no meningeal signs and Yes supple Lymphatic: no lymphadenopathy noted Resp: Auscultation: clear to auscultation bilaterally Cardio: Palpation: normal PMI Rate: regular rate and tachycardic Rhythm: regular rhythm Heart sounds: S1 normal heart sound present, S2 normal heart sound present, no gallops, no murmurs and no rubs GI: Inspection: Yes normal to inspection and Yes distended Palpation (GI): Soft to palpation, nontender, no guarding, not rigid and Ascites present Auscultation: normal bowel sounds Skin: General skin exam: spider nevi and other ( warm) Rashes: no rashes Wounds: no wounds Neuro: General: tone normal, moves all extremities and no meningeal signs Gait exam (Neuro): Normal gait present Extrem: General: Yes normal to inspection, Yes no pedal edema, No clubbing, No cyanosis and Yes edema (1+ bilateral) Objective Data Labs 07/25/22 05:35 07/25/22 05:35 Labs: Laboratory Results - last 24 hr 07/23/22 07/24/22 07/24/22 05:24 07:36 20:18 WBC RBC Hgb Hct MCV MCH MCHC RDW Plt Count MPV Immature Gran % (Auto) Neut % (Auto) Lymph % (Auto) [place] % (Auto) Eos % (Auto) Baso % (Auto) Lymph # (Auto) [place] # (Auto) Eos # (Auto) Baso # (Auto) Abs Immat Gran (auto) Absolute Neuts (auto) Absolute Nucleated RBC Nucleated RBC % (auto) Smear Tech's Comments Smear Path Review SEE NOTE PT 23.5 H INR 2.0 H APTT 40.6 H Fibrinogen 265 VBG pH VBG pCO2 VBG pO2 VBG HCO3 VBG O2 Saturation VBG Base Excess Sodium Potassium Chloride Carbon Dioxide Anion Gap BUN Creatinine Estim Creat Clear Calc Estimated GFR POC Glucose Random Glucose Calcium Total Bilirubin Direct Bilirubin AST ALT Alkaline Phosphatase B-Natriuretic Peptide Total Protein Albumin Blood Type O Positive Antibody Screen NEGATIVE Crossmatch See Detail 07/24/22 07/24/22 07/24/22 20:22 20:22 20:22 WBC 13.3 H RBC 2.08 L Hgb 7.0 L* Hct 19.6 L* MCV 94.2 MCH 33.7 H MCHC 35.7 RDW 17.2 H Plt Count 46 L MPV 10.0 Immature Gran % (Auto) 0.5 H Neut % (Auto) 92.9 H Lymph % (Auto) 3.7 L [place] % (Auto) 2.7 Eos % (Auto) 0.1 Baso % (Auto) 0.1 Lymph # (Auto) 0.5 L [place] # (Auto) 0.4 Eos # (Auto) 0.0 Baso # (Auto) 0.0 Abs Immat Gran (auto) 0.07 H Absolute Neuts (auto) 12.4 H Absolute Nucleated RBC 0.000 Nucleated RBC % (auto) 0.0 Smear Tech's Comments VERIFIED Smear Path Review PT INR APTT Fibrinogen VBG pH VBG pCO2 VBG pO2 VBG HCO3 VBG O2 Saturation VBG Base Excess Sodium 145 Potassium 3.3 Chloride 112 H Carbon Dioxide 21 L Anion Gap 15 BUN 101 H Creatinine 3.75 H Estim Creat Clear Calc 20.8 Estimated GFR 17 POC Glucose Random Glucose 369 H* Calcium 7.7 L D Total Bilirubin 12.7 H Direct Bilirubin AST 31 ALT 13 Alkaline Phosphatase 77 B-Natriuretic Peptide 2394 H Total Protein 4.6 L Albumin 3.2 L Blood Type Antibody Screen Crossmatch 07/24/22 07/24/22 07/25/22 20:27 21:26 00:48 WBC 14.2 H RBC 2.37 L Hgb 7.7 L Hct 22.5 L MCV 94.9 MCH 32.5 MCHC 34.2 RDW 17.1 H Plt Count 44 L MPV 10.0 Immature Gran % (Auto) 0.6 H Neut % (Auto) 92.3 H Lymph % (Auto) 4.1 L [place] % (Auto) 2.8 Eos % (Auto) 0.1 Baso % (Auto) 0.1 Lymph # (Auto) 0.6 L [place] # (Auto) 0.4 Eos # (Auto) 0.0 Baso # (Auto) 0.0 Abs Immat Gran (auto) 0.09 H Absolute Neuts (auto) 13.1 H Absolute Nucleated RBC 0.000 Nucleated RBC % (auto) 0.0 Smear Tech's Comments Smear Path Review PT INR APTT Fibrinogen VBG pH 7.30 L VBG pCO2 46 VBG pO2 55 VBG HCO3 23 VBG O2 Saturation 87.0 VBG Base Excess -3.0 Sodium Potassium Chloride Carbon Dioxide Anion Gap BUN Creatinine Estim Creat Clear Calc Estimated GFR POC Glucose 301 H Random Glucose Calcium Total Bilirubin Direct Bilirubin AST ALT Alkaline Phosphatase B-Natriuretic Peptide Total Protein Albumin Blood Type Antibody Screen Crossmatch 07/25/22 07/25/22 07/25/22 00:48 03:41 05:35 WBC 13.3 H RBC 2.37 L Hgb 7.7 L Hct 22.8 L MCV 96.2 MCH 32.5 MCHC 33.8 RDW 17.1 H Plt Count 43 L MPV 10.0 Immature Gran % (Auto) 0.7 H Neut % (Auto) 91.3 H Lymph % (Auto) 5.0 L [place] % (Auto) 2.7 Eos % (Auto) 0.1 Baso % (Auto) 0.2 Lymph # (Auto) 0.7 L [place] # (Auto) 0.4 Eos # (Auto) 0.0 Baso # (Auto) 0.0 Abs Immat Gran (auto) 0.09 H Absolute Neuts (auto) 12.2 H Absolute Nucleated RBC 0.000 Nucleated RBC % (auto) 0.0 Smear Tech's Comments Smear Path Review PT INR APTT Fibrinogen VBG pH VBG pCO2 VBG pO2 VBG HCO3 VBG O2 Saturation VBG Base Excess Sodium 148 H Potassium 3.0 L Chloride 112 H Carbon Dioxide 23 Anion Gap 16 BUN 102 H Creatinine 3.80 H Estim Creat Clear Calc 20.5 Estimated GFR 17 POC Glucose 176 H Random Glucose 213 H Calcium 8.0 L Total Bilirubin 13.3 H Direct Bilirubin AST 29 ALT 12 Alkaline Phosphatase 76 B-Natriuretic Peptide Total Protein 5.5 L Albumin 4.1 Blood Type Antibody Screen Crossmatch 07/25/22 07/25/22 07/25/22 05:35 05:35 05:35 WBC RBC Hgb Hct MCV MCH MCHC RDW Plt Count MPV Immature Gran % (Auto) Neut % (Auto) Lymph % (Auto) [place] % (Auto) Eos % (Auto) Baso % (Auto) Lymph # (Auto) [place] # (Auto) Eos # (Auto) Baso # (Auto) Abs Immat Gran (auto) Absolute Neuts (auto) Absolute Nucleated RBC Nucleated RBC % (auto) Smear Tech's Comments Smear Path Review PT 23.7 H INR 2.0 H APTT 43.8 H Fibrinogen 239 L VBG pH VBG pCO2 VBG pO2 VBG HCO3 VBG O2 Saturation VBG Base Excess Sodium 146 H Potassium 3.0 L Chloride 112 H Carbon Dioxide 21 L Anion Gap 16 BUN 101 H Creatinine 3.71 H Estim Creat Clear Calc 22.9 Estimated GFR 17 POC Glucose Random Glucose 172 H Calcium 8.0 L Total Bilirubin 14.6 H Direct Bilirubin 5.4 H AST 31 ALT 11 Alkaline Phosphatase 77 B-Natriuretic Peptide Total Protein 5.4 L Albumin 3.9 Blood Type Antibody Screen Crossmatch 07/25/22 07/25/22 07/25/22 05:48 10:35 14:29 WBC RBC Hgb Hct MCV MCH MCHC RDW Plt Count MPV Immature Gran % (Auto) Neut % (Auto) Lymph % (Auto) [place] % (Auto) Eos % (Auto) Baso % (Auto) Lymph # (Auto) [place] # (Auto) Eos # (Auto) Baso # (Auto) Abs Immat Gran (auto) Absolute Neuts (auto) Absolute Nucleated RBC Nucleated RBC % (auto) Smear Tech's Comments Smear Path Review PT INR APTT Fibrinogen VBG pH 7.23 L 7.02 L* VBG pCO2 54 81 VBG pO2 52 53 VBG HCO3 23 21 L VBG O2 Saturation 87.0 82.0 VBG Base Excess -4.4 -9.7 Sodium Potassium Chloride Carbon Dioxide Anion Gap BUN Creatinine Estim Creat Clear Calc Estimated GFR POC Glucose 148 H Random Glucose Calcium Total Bilirubin Direct Bilirubin AST ALT Alkaline Phosphatase B-Natriuretic Peptide Total Protein Albumin Blood Type Antibody Screen Crossmatch Microbiology Microbiology Results: Microbiology 07/20/22 12:10 Blood - Venous Blood Culture - Final No growth after 5 days. 07/20/22 12:10 Blood - Venous Blood Culture - Final No growth after 5 days. 07/20/22 Unknown Urine clean catch - Urine nascimento top Urine Culture - Final Nicol albicans Procedures Date of Service Date of Service: 07/25/22 Assessment & Plan Assessment and plan (1) Hepatorenal syndrome: Status: Acute (2) Alcoholic cirrhosis: Status: Acute (3) SAUL (acute kidney injury): Status: Acute (4) End stage liver disease: Status: Acute Plan SAUL due to pre renal state in the setting of ETOH liver cirrhosis Advanced liver disease Hepatorenal syndrome hypervolemic hyponatremia in the setting of hepatic physiology - resolving Large ascites [place] Acidosis with resp alkalosis REC Ocer all worse On Pressers Cr is better Watch K octreotide Poor prognosis d/w ICU team follow kidney function and electrolytes Time Spent With Patient Time: Total time managing care of this patient today ____ minutes. Progress Note: Quality Stroke Does the patient have a stroke diagnosis?: No
--- NOTE | 2022-07-25 15:05 | P.PNCC_ITS ---
Subjective Subjective Date of Service: 07/25/22 Interval History: 56-year-old with alcoholic cirrhosis and end-stage hepatic failure and portal hypertension status post the massive upper GI bleed treated with will stay massive transfusion protocol with a large volume of blood products now in ARDS with with acute hypercarbic and hypoxic respiratory failure and a combination of both metabolic and AE and acute respiratory acidosis pH of 7.02 is urine output is improving on the 10 milligram/hour Lasix drip but is chest x-rays very clearly demonstrate probable a acute lung injury/ ARDS and these developing progressive respiratory failure long discussions with the family about the advanced end-stage nature of this disease and the family was talking about comfort measure but was willing because there was and just enough mental status to see if he would cooperate with of BiPAP at a gentle level and and if it helps his work of breathing and improves his respiratory acidosis we would try that 1st but if that fails or is not tolerated they would want to move to comfort measures understanding the and advanced end-stage nature of his disease Critical Care Time (minutes): 45 Physical Exam Vital Signs: Vital Signs: Last Vital Signs Temp 96.5 F L 07/25/22 07:00 Pulse 96 07/25/22 14:00 Resp 22 H 07/25/22 14:00 BP 102/64 07/25/22 14:00 Pulse Ox 90 L 07/25/22 14:00 O2 Del Method Non-Rebreather Ma sk 07/25/22 14:00 O2 Flow Rate 12 07/25/22 14:00 Oxygen Flow Rate 3 07/20/22 14:43 BMI result Body Mass Index 28.0 patient is increasingly lethargic and I would have to assume that this is a metabolic encephalopathy from the pCO2 of 81 and pH of 7.02 lungs with very diminished bilateral breath sounds still in sinus rhythm with preserved LV function by bedside echo skin of course covered covered with petechiae and there was some development of acrocyanosis Objective Data Labs 07/25/22 05:35 07/25/22 05:35 Labs: Laboratory Results - last 24 hr 07/24/22 07/24/22 07/24/22 07:36 20:18 20:22 WBC 13.3 H RBC 2.08 L Hgb 7.0 L* Hct 19.6 L* MCV 94.2 MCH 33.7 H MCHC 35.7 RDW 17.2 H Plt Count 46 L MPV 10.0 Immature Gran % (Auto) 0.5 H Neut % (Auto) 92.9 H Lymph % (Auto) 3.7 L [place] % (Auto) 2.7 Eos % (Auto) 0.1 Baso % (Auto) 0.1 Lymph # (Auto) 0.5 L [place] # (Auto) 0.4 Eos # (Auto) 0.0 Baso # (Auto) 0.0 Abs Immat Gran (auto) 0.07 H Absolute Neuts (auto) 12.4 H Absolute Nucleated RBC 0.000 Nucleated RBC % (auto) 0.0 Smear Tech's Comments VERIFIED PT 23.5 H INR 2.0 H APTT 40.6 H Fibrinogen 265 VBG pH VBG pCO2 VBG pO2 VBG HCO3 VBG O2 Saturation VBG Base Excess Sodium Potassium Chloride Carbon Dioxide Anion Gap BUN Creatinine Estim Creat Clear Calc Estimated GFR POC Glucose Random Glucose Calcium Total Bilirubin Direct Bilirubin AST ALT Alkaline Phosphatase B-Natriuretic Peptide Total Protein Albumin Blood Type O Positive Antibody Screen NEGATIVE Crossmatch See Detail 07/24/22 07/24/22 07/24/22 20:22 20:22 20:27 WBC RBC Hgb Hct MCV MCH MCHC RDW Plt Count MPV Immature Gran % (Auto) Neut % (Auto) Lymph % (Auto) [place] % (Auto) Eos % (Auto) Baso % (Auto) Lymph # (Auto) [place] # (Auto) Eos # (Auto) Baso # (Auto) Abs Immat Gran (auto) Absolute Neuts (auto) Absolute Nucleated RBC Nucleated RBC % (auto) Smear Tech's Comments PT INR APTT Fibrinogen VBG pH 7.30 L VBG pCO2 46 VBG pO2 55 VBG HCO3 23 VBG O2 Saturation 87.0 VBG Base Excess -3.0 Sodium 145 Potassium 3.3 Chloride 112 H Carbon Dioxide 21 L Anion Gap 15 BUN 101 H Creatinine 3.75 H Estim Creat Clear Calc 20.8 Estimated GFR 17 POC Glucose Random Glucose 369 H* Calcium 7.7 L D Total Bilirubin 12.7 H Direct Bilirubin AST 31 ALT 13 Alkaline Phosphatase 77 B-Natriuretic Peptide 2394 H Total Protein 4.6 L Albumin 3.2 L Blood Type Antibody Screen Crossmatch 07/24/22 07/25/22 07/25/22 21:26 00:48 00:48 WBC 14.2 H RBC 2.37 L Hgb 7.7 L Hct 22.5 L MCV 94.9 MCH 32.5 MCHC 34.2 RDW 17.1 H Plt Count 44 L MPV 10.0 Immature Gran % (Auto) 0.6 H Neut % (Auto) 92.3 H Lymph % (Auto) 4.1 L [place] % (Auto) 2.8 Eos % (Auto) 0.1 Baso % (Auto) 0.1 Lymph # (Auto) 0.6 L [place] # (Auto) 0.4 Eos # (Auto) 0.0 Baso # (Auto) 0.0 Abs Immat Gran (auto) 0.09 H Absolute Neuts (auto) 13.1 H Absolute Nucleated RBC 0.000 Nucleated RBC % (auto) 0.0 Smear Tech's Comments PT INR APTT Fibrinogen VBG pH VBG pCO2 VBG pO2 VBG HCO3 VBG O2 Saturation VBG Base Excess Sodium 148 H Potassium 3.0 L Chloride 112 H Carbon Dioxide 23 Anion Gap 16 BUN 102 H Creatinine 3.80 H Estim Creat Clear Calc 20.5 Estimated GFR 17 POC Glucose 301 H Random Glucose 213 H Calcium 8.0 L Total Bilirubin 13.3 H Direct Bilirubin AST 29 ALT 12 Alkaline Phosphatase 76 B-Natriuretic Peptide Total Protein 5.5 L Albumin 4.1 Blood Type Antibody Screen Crossmatch 07/25/22 07/25/22 07/25/22 03:41 05:35 05:35 WBC 13.3 H RBC 2.37 L Hgb 7.7 L Hct 22.8 L MCV 96.2 MCH 32.5 MCHC 33.8 RDW 17.1 H Plt Count 43 L MPV 10.0 Immature Gran % (Auto) 0.7 H Neut % (Auto) 91.3 H Lymph % (Auto) 5.0 L [place] % (Auto) 2.7 Eos % (Auto) 0.1 Baso % (Auto) 0.2 Lymph # (Auto) 0.7 L [place] # (Auto) 0.4 Eos # (Auto) 0.0 Baso # (Auto) 0.0 Abs Immat Gran (auto) 0.09 H Absolute Neuts (auto) 12.2 H Absolute Nucleated RBC 0.000 Nucleated RBC % (auto) 0.0 Smear Tech's Comments PT INR APTT Fibrinogen VBG pH VBG pCO2 VBG pO2 VBG HCO3 VBG O2 Saturation VBG Base Excess Sodium 146 H Potassium 3.0 L Chloride 112 H Carbon Dioxide 21 L Anion Gap 16 BUN 101 H Creatinine 3.71 H Estim Creat Clear Calc 22.9 Estimated GFR 17 POC Glucose 176 H Random Glucose 172 H Calcium 8.0 L Total Bilirubin 14.6 H Direct Bilirubin AST 31 ALT 11 Alkaline Phosphatase 77 B-Natriuretic Peptide Total Protein 5.4 L Albumin 3.9 Blood Type Antibody Screen Crossmatch 07/25/22 07/25/22 07/25/22 05:35 05:35 05:48 WBC RBC Hgb Hct MCV MCH MCHC RDW Plt Count MPV Immature Gran % (Auto) Neut % (Auto) Lymph % (Auto) [place] % (Auto) Eos % (Auto) Baso % (Auto) Lymph # (Auto) [place] # (Auto) Eos # (Auto) Baso # (Auto) Abs Immat Gran (auto) Absolute Neuts (auto) Absolute Nucleated RBC Nucleated RBC % (auto) Smear Tech's Comments PT 23.7 H INR 2.0 H APTT 43.8 H Fibrinogen 239 L VBG pH 7.23 L VBG pCO2 54 VBG pO2 52 VBG HCO3 23 VBG O2 Saturation 87.0 VBG Base Excess -4.4 Sodium Potassium Chloride Carbon Dioxide Anion Gap BUN Creatinine Estim Creat Clear Calc Estimated GFR POC Glucose Random Glucose Calcium Total Bilirubin Direct Bilirubin 5.4 H AST ALT Alkaline Phosphatase B-Natriuretic Peptide Total Protein Albumin Blood Type Antibody Screen Crossmatch 07/25/22 07/25/22 10:35 14:29 WBC RBC Hgb Hct MCV MCH MCHC RDW Plt Count MPV Immature Gran % (Auto) Neut % (Auto) Lymph % (Auto) [place] % (Auto) Eos % (Auto) Baso % (Auto) Lymph # (Auto) [place] # (Auto) Eos # (Auto) Baso # (Auto) Abs Immat Gran (auto) Absolute Neuts (auto) Absolute Nucleated RBC Nucleated RBC % (auto) Smear Tech's Comments PT INR APTT Fibrinogen VBG pH 7.02 L* VBG pCO2 81 VBG pO2 53 VBG HCO3 21 L VBG O2 Saturation 82.0 VBG Base Excess -9.7 Sodium Potassium Chloride Carbon Dioxide Anion Gap BUN Creatinine Estim Creat Clear Calc Estimated GFR POC Glucose 148 H Random Glucose Calcium Total Bilirubin Direct Bilirubin AST ALT Alkaline Phosphatase B-Natriuretic Peptide Total Protein Albumin Blood Type Antibody Screen Crossmatch Microbiology Microbiology Results: Microbiology 07/20/22 12:10 Blood - Venous Blood Culture - Final No growth after 5 days. 07/20/22 12:10 Blood - Venous Blood Culture - Final No growth after 5 days. 07/20/22 Unknown Urine clean catch - Urine nascimento top Urine Culture - Final Nicol albicans Progress Note: A&P Assessment and plan (1) Hypernatremia: Status: Acute (2) Hypokalemia due to excessive gastrointestinal loss of potassium: Status: Acute (3) Metabolic acidosis: Status: Acute (4) Duodenal ulcer: Status: Acute (5) Hematochezia: Status: Acute (6) GI bleed not requiring more than 4 units of blood in 24 hours, ICU, or surgery: Status: Acute (7) Hyperkalemia: Status: Acute (8) Hepatorenal syndrome: Status: Acute (9) Alcoholic cirrhosis: Status: Acute (10) SAUL (acute kidney injury): Status: Acute (11) Hypoxia: Status: Acute (12) Acute hypercapnic respiratory failure: Status: Acute (13) Acute UTI: Status: Acute (14) End stage liver disease: Status: Acute (15) Alcoholic cirrhosis: Status: Acute (16) Gram-negative bacteremia: Status: Acute (17) Ascites: Status: Acute (18) Hyponatremia: Status: Acute (19) UTI (urinary tract infection): Status: Acute (20) Acute hyponatremia: Status: Acute (21) Non-compliant patient: Status: Acute Plan the plan is to attempt noninvasive ventilation using BiPAP see if he did tolera maribel because if not or if it is just a failed mechanism will probably go with comfort measures at that point per family wishes Quality Stroke Does the patient have a stroke diagnosis?: No VTE Prior VTE?: No VTE Risk Level:: Medical - moderate - high VTE Device Contraindication: N/A - Device Ordered VTE Drug Contraindication: Treatment Not Indicated
[2022-07-25 15:40] LABS: Glucose, Whole Blood 180 mg/dL (60-115)
[2022-07-25] MEDS: Furosemide 200 MG in 0.9 % Sodium Chloride 80 ML IVCONT (16:31)
[2022-07-25 16:57] LABS: VBG Base Excess -8.9 mmol/L; VBG HCO3 20 mmol/L (22-26); VBG pCO2 63 mmHg; VBG pO2 50 mmHg
[2022-07-25 16:58] LABS: Venous Blood Gas Refer to POC result
--- NOTE | 2022-07-25 17:20 | HO.POSTANES ---
Post Anesthesia Evaluation Post Anesthesia Evaluation Vital Signs: Vital Signs Temp Pulse Resp BP Pulse Ox O2 Del Method O2 Flow Rate 07/25/22 15:30 32 H 07/25/22 16:00 98 25 H 110/67 93 Non-Rebreather Mask 12 07/25/22 15:00 98 23 H 99/65 96 Non-Rebreather Mask 12 07/25/22 14:00 96 22 H 102/64 90 L Non-Rebreather Mask 12 07/25/22 13:00 100 25 H 100/66 92 Non-Rebreather Mask 12 07/25/22 12:00 101 H 15 112/69 94 Non-Rebreather Mask 12 07/25/22 11:00 97 20 121/79 92 Nasal Cannula 5 07/25/22 10:00 95 19 120/83 94 Nasal Cannula 5 07/25/22 09:00 96 21 H 122/80 94 Nasal Cannula 5 07/25/22 08:00 97 14 123/78 93 Nasal Cannula 5 07/25/22 07:00 96.5 F L 96 21 H 121/60 94 Nasal Cannula 5 07/25/22 06:00 101 H 18 113/78 92 Nasal Cannula 5 Anesthesia: General Endotracheal-GETA Mental Status: Awake Pain Control: Satisfactory Nausea/Vomiting: None Hydration: Adequate Anesthesia-Related Issues: No Anes. Related Issues
[2022-07-25 19:32] LABS: VBG Base Excess -10.4 mmol/L; VBG HCO3 21 mmol/L (22-26); VBG pCO2 88 mmHg; VBG pH 6.98 (7.32-7.43); VBG pO2 55 mmHg
[2022-07-25] MEDS: fentaNYL citrate/NS 1,000 MCG/100 ML PLAST..BAG 10 MCG IVCONT (19:35)
[2022-07-25 19:41] LABS: Venous Blood Gas Refer to POC result
[2022-07-25] MEDS: Midazolam HCl/PF 2 MG/2 ML VIAL 4 MG IVPUSH (19:45)
[2022-07-25 19:51] LABS: Lactic Acid 1.6 mmol/L (0.5-2.0)
[2022-07-25 19:56] LABS: Anion Gap 14 (12-20); Blood Urea Nitrogen 103 mg/dL (9-16); Calcium 7.9 mg/dL (8.4-10.2); Carbon Dioxide 23 mmol/L (22-29); Chloride 113 mmol/L (96-108); Creatinine Clr Calc Pharmacy 22.1; Estimated Glomerular Filt Rate 16; Glucose Random 176 mg/dL (60-115); Potassium 3.7 mmol/L (3.3-5.1); Sodium 146 mmol/L (135-145)
--- NOTE | 2022-07-25 21:12 | PC.NURSE ---
Patient noted to have declining O2 sat via monitor at roughly 1430. RN and CCT responding to room. Patient O2 dropped to a low of 58% Patient temporarily oxygenated via BVM. RT and MD notified, advised to place patient on 15L Nonrebreather. Patient oxygentation stabilized. VBG taken approximately 1530 prior to patient being placed on BIPAP per MD by RT. Multiple VBG taken over course of day showing minimal improvement, see laboratory for results. Patient condition worsening, LESLEE held family meeting patient, made PUBLIC POLICY ASSOCIATE. Time of as pronounced by LESLEE Chang, Jose Juan. [facility] contacted, , [employer] retail field representative - Sarah. Potential for organ donation - Yes
--- NOTE | 2022-07-25 21:50 | W.MHC.ACPN ---
Advanced Care Planning Note Advanced Care Planning Note Discussed with: family member(s) (Deann his Fianc? HCP, Aunt and niece ) Time spent (in minutes): 45 Problems Discussed (1) Hypernatremia: (2) Hypokalemia due to excessive gastrointestinal loss of potassium: (3) Metabolic acidosis: (4) Duodenal ulcer: (5) Hematochezia: (6) GI bleed not requiring more than 4 units of blood in 24 hours, ICU, or surgery: (7) Hyperkalemia: (8) Hepatorenal syndrome: (9) Alcoholic cirrhosis: (10) SAUL (acute kidney injury): (11) Hypoxia: (12) Acute hypercapnic respiratory failure: (13) Acute UTI: (14) End stage liver disease: (15) Gram-negative bacteremia: (16) Ascites: (17) Hyponatremia: (18) UTI (urinary tract infection): (19) Acute hyponatremia: (20) Non-compliant patient:
--- NOTE | 2022-07-25 21:51 | P.DS_ITS ---
DS: Providers Provider Date of Service: 07/25/22 Date of admission: 07/20/22 14:43 Date of discharge: 07/25/22 Primary care physician: Maren Carvajal MD Admitting clinician: Helder Lerner Attending physician on admission: Paul Garcia Attending physician on discharge: Helder Lerner Discharging clinician: Robinson Chang DS: Diagnosis Discharge Diagnosis (1) Hypernatremia: Status: Acute (2) Hypokalemia due to excessive gastrointestinal loss of potassium: Status: Acute (3) Metabolic acidosis: Status: Acute (4) Duodenal ulcer: Status: Acute (5) Hematochezia: Status: Acute (6) GI bleed not requiring more than 4 units of blood in 24 hours, ICU, or surgery: Status: Acute (7) Hyperkalemia: Status: Acute (8) Hepatorenal syndrome: Status: Acute (9) Alcoholic cirrhosis: Status: Acute (10) SAUL (acute kidney injury): Status: Acute (11) Hypoxia: Status: Acute (12) Acute hypercapnic respiratory failure: Status: Acute (13) Acute UTI: Status: Acute (14) End stage liver disease: Status: Acute (15) Gram-negative bacteremia: Status: Acute (16) Ascites: Status: Acute (17) Hyponatremia: Status: Acute (18) UTI (urinary tract infection): Status: Acute (19) Acute hyponatremia: Status: Acute (20) Non-compliant patient: Status: Acute DS: Summary Hospital Course Hospital Course: ADMISSION/DISCHARGE DIAGNOSIS: ? MULTI ORGAN FAILURE HEPATORENAL SYNDROME END-STAGE LIVER DISEASE ACUTE KIDNEY INJURY HYPERKALEMIA UPPER GI BLEED SEVERE COAGULOPATHY FIBRINOGEN DEFICIENCY PANCYTOPENIA ASPIRATION PNEUMONITIS ACUTE RESPIRATORY FAILURE ASCITES CHOLELITHIASIS WITHOUT CHOLECYSTITIS OR OBSTRUCTION DUODENAL ULCER UNDERLYING DIABETES MELLITUS TYPE 2 HISTORY OF ALCOHOLISM AND WITHDRAWAL SEIZURES GRAM-NEGATIVE INFECTIONS WITH MULTIPLE RESISTANT ORGANISMS HYPOALBUMINEMIA PROTEIN CALORIE MALNUTRITION SYNDROME ? HPI/HOSPITAL COURSE Chief Complaint:? 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 after patient presented with complains of fatigue and weakness over several days.? Patient is known to significant ascites for several months for which he has been requiring paracentesis on a biweekly basis for the past 4-5 months according to the patient's fiancee. ? On ER evaluation patient in acute renal failure with metabolic acidosis and hyperkalemia.? Also noted to have hypertension with poor response to initial IV fluid resuscitation.? Patient was started on colloidal support and broad- spectrum antibiotics and admitted to intensive care unit with the diagnosis of hepatorenal syndrome in the setting of alcoholic cirrhosis in addition to hyperkalemia and coagulopathy. ? He was treated with supplemental oxygen, colloidal support, renal indices were monitored and his hyperkalemia was treated, nephrology was consulted and they advised not to diurese him at the time, he was cover with broad-spectrum antibiotics empirically.? Due to the coagulopathy in the setting of high INR, low platelets, low fibrinogen, he did have bleeding from his mouth given that he had bitten his tongue a day prior to the admission. ? During the 1st couple days of admission, the patient was somewhat stable and did not require vasopressors; his renal in this is improved slowly, on day ?the patient became the most lucid that he could have been and at that point code status was address, he expresses wishes to be DNR DNI but medical treatment continued. ? He did drop his H&H and the patient was placed on PPI, GI was consulted but no initial endoscopy was granted.? Subsequently on day 4, the patient had massive amounts of melena like stools prompting transfusion of several units of packed red blood cells, fresh frozen plasma, cryoprecipitate and administration of vitamin K; the patient was switched from PPI to octreotide tried; on the same day, given the acuity of his bleeding and the lack of IV access, a emergent but consented left IJ central line was placed successfully. ?Subsequently the patient underwent a upper endoscopy which was done under general anesthesia and the patient had been briefly intubated but extubated after the procedure. ? The above-mentioned procedure revealed no significant or active bleeding, please refer to the full GI procedure note for details by Dr. Churchill. ?Reportedly after coming back from this procedure, the patient did show some signs of respiratory distress but he was able to be extubated successfully and placed on supplemental oxygen.? Discontinue to get worse, a repeat chest x-ray showed bilateral opacities which were concerning for aspiration. ?On day 6, he continued to drop his H&H and received another unit of blood, given that he was oliguric and had significant ascites, the concern also for TRALI was present as he had received multiple blood product transfusions, he was given a single dose of IV Lasix with no effect he was placed on IV Lasix drip which worked significantly well promoting quite a bit of diuresis. ? Today unfortunately around 03:00 o'clock, the patient had developed worsening respiratory distress, Dr. Lerner had spoken to the family and they had expressed their wish to try to keep him alive at least for now while they could get some other family members and friends to see him tomorrow, however around 19:00, it was clear that the patient was not responsive and on BiPAP.? At this point I had a lengthy discussion with family members as discussed on my advance care note and the patient was made [employer]. ? Patient was placed briefly on a fentanyl drip and within 5 minutes, he peacefully.? Fiancee family members at bedside, condolences expressed. ? Time of 19:50. Reason of : ?Multi organ failure in the setting of hepatorenal syndrome due to chronic alcoholic cirrhosis and ongoing alcoholism ? At? 1949? asystole was noted on the monitor.? At this time, the patient has no heartbeat, no palpable pulses, pupils are fixed at 5 mm bilaterally, overall that anterior chamber and cornea of the eyes appear glossy, no spontaneous breathing.? There is no corneal reflexes bilaterally, capillary refill of the fingers and toes is significantly delayed.? Patient was pronounced at? ?1949. Certificate Completed. Organ Center Called by RN.? ? Total time spent with the patient planning, coordinating, insuring a natural, non suffering and humane passing? as well as pronouncement evaluation, and paperwork preparation and this discharge summary was 90 minutes. Discussed in detail with Dr. Lerner.? He is aware of all the above. ? Time Spent with Patient Time attestation: Total time managing care of this patient today ____ minutes. Discharge coordination time: Greater than 30 minutes Quality: Safe Use of Opioids Does Pt have an Active Cancer Diagnosis on the Problem List?: No Quality: Stroke Does the patient have a stroke diagnosis?: No Physical Exam Vital Signs: Vital Signs: Last Vital Signs Temp 96 F L 07/25/22 16:00 Pulse 92 07/25/22 19:00 Resp 23 H 07/25/22 19:00 BP 83/57 L 07/25/22 19:00 Pulse Ox 97 07/25/22 19:00 O2 Del Method Non-Rebreather Ma sk 07/25/22 19:00 O2 Flow Rate 12 07/25/22 19:00 FiO2 50 07/25/22 19:28 Oxygen Flow Rate 3 07/20/22 14:43 BMI result Body Mass Index 28.0 DS: Data Data Completed and Pending Completed studies during hospitalization [Text1]: Procedures Detoxification Services for Substance Abuse Treatment (04/23/22) Drainage of Peritoneal Cavity, Percutaneous Approach (05/20/22) Insertion of Infusion Device into Left Brachial Vein, Percutaneous Approach (04/23/22) Transfusion of Nonautologous Red Blood Cells into Peripheral Vein, Percutaneous Approach (05/20/22) Ultrasonography of Left Upper Extremity Veins, Guidance (04/23/22) Labs on day of discharge: Laboratory Results - last 24 hr 07/24/22 07/25/22 07/25/22 07:36 00:48 00:48 WBC 14.2 H RBC 2.37 L Hgb 7.7 L Hct 22.5 L MCV 94.9 MCH 32.5 MCHC 34.2 RDW 17.1 H Plt Count 44 L MPV 10.0 Immature Gran % (Auto) 0.6 H Neut % (Auto) 92.3 H Lymph % (Auto) 4.1 L Mathews % (Auto) 2.8 Eos % (Auto) 0.1 Baso % (Auto) 0.1 Lymph # (Auto) 0.6 L Mathews # (Auto) 0.4 Eos # (Auto) 0.0 Baso # (Auto) 0.0 Abs Immat Gran (auto) 0.09 H Absolute Neuts (auto) 13.1 H Absolute Nucleated RBC 0.000 Nucleated RBC % (auto) 0.0 PT INR APTT Fibrinogen VBG pH VBG pCO2 VBG pO2 VBG HCO3 VBG O2 Saturation VBG Base Excess Sodium 148 H Potassium 3.0 L Chloride 112 H Carbon Dioxide 23 Anion Gap 16 BUN 102 H Creatinine 3.80 H Estim Creat Clear Calc 20.5 Estimated GFR 17 POC Glucose Random Glucose 213 H Lactic Acid Calcium 8.0 L Total Bilirubin 13.3 H Direct Bilirubin AST 29 ALT 12 Alkaline Phosphatase 76 Total Protein 5.5 L Albumin 4.1 Blood Type O Positive Antibody Screen NEGATIVE Crossmatch See Detail 07/25/22 07/25/22 07/25/22 03:41 05:35 05:35 WBC 13.3 H RBC 2.37 L Hgb 7.7 L Hct 22.8 L MCV 96.2 MCH 32.5 MCHC 33.8 RDW 17.1 H Plt Count 43 L MPV 10.0 Immature Gran % (Auto) 0.7 H Neut % (Auto) 91.3 H Lymph % (Auto) 5.0 L Mathews % (Auto) 2.7 Eos % (Auto) 0.1 Baso % (Auto) 0.2 Lymph # (Auto) 0.7 L Mathews # (Auto) 0.4 Eos # (Auto) 0.0 Baso # (Auto) 0.0 Abs Immat Gran (auto) 0.09 H Absolute Neuts (auto) 12.2 H Absolute Nucleated RBC 0.000 Nucleated RBC % (auto) 0.0 PT INR APTT Fibrinogen VBG pH VBG pCO2 VBG pO2 VBG HCO3 VBG O2 Saturation VBG Base Excess Sodium 146 H Potassium 3.0 L Chloride 112 H Carbon Dioxide 21 L Anion Gap 16 BUN 101 H Creatinine 3.71 H Estim Creat Clear Calc 22.9 Estimated GFR 17 POC Glucose 176 H Random Glucose 172 H Lactic Acid Calcium 8.0 L Total Bilirubin 14.6 H Direct Bilirubin AST 31 ALT 11 Alkaline Phosphatase 77 Total Protein 5.4 L Albumin 3.9 Blood Type Antibody Screen Crossmatch 07/25/22 07/25/22 07/25/22 05:35 05:35 05:48 WBC RBC Hgb Hct MCV MCH MCHC RDW Plt Count MPV Immature Gran % (Auto) Neut % (Auto) Lymph % (Auto) Mathews % (Auto) Eos % (Auto) Baso % (Auto) Lymph # (Auto) Mathews # (Auto) Eos # (Auto) Baso # (Auto) Abs Immat Gran (auto) Absolute Neuts (auto) Absolute Nucleated RBC Nucleated RBC % (auto) PT 23.7 H INR 2.0 H APTT 43.8 H Fibrinogen 239 L VBG pH 7.23 L VBG pCO2 54 VBG pO2 52 VBG HCO3 23 VBG O2 Saturation 87.0 VBG Base Excess -4.4 Sodium Potassium Chloride Carbon Dioxide Anion Gap BUN Creatinine Estim Creat Clear Calc Estimated GFR POC Glucose Random Glucose Lactic Acid Calcium Total Bilirubin Direct Bilirubin 5.4 H AST ALT Alkaline Phosphatase Total Protein Albumin Blood Type Antibody Screen Crossmatch 07/25/22 07/25/22 07/25/22 10:35 14:29 15:36 WBC RBC Hgb Hct MCV MCH MCHC RDW Plt Count MPV Immature Gran % (Auto) Neut % (Auto) Lymph % (Auto) Mathews % (Auto) Eos % (Auto) Baso % (Auto) Lymph # (Auto) Mathews # (Auto) Eos # (Auto) Baso # (Auto) Abs Immat Gran (auto) Absolute Neuts (auto) Absolute Nucleated RBC Nucleated RBC % (auto) PT INR APTT Fibrinogen VBG pH 7.02 L* VBG pCO2 81 VBG pO2 53 VBG HCO3 21 L VBG O2 Saturation 82.0 VBG Base Excess -9.7 Sodium Potassium Chloride Carbon Dioxide Anion Gap BUN Creatinine Estim Creat Clear Calc Estimated GFR POC Glucose 148 H 180 H Random Glucose Lactic Acid Calcium Total Bilirubin Direct Bilirubin AST ALT Alkaline Phosphatase Total Protein Albumin Blood Type Antibody Screen Crossmatch 07/25/22 07/25/22 07/25/22 16:48 19:07 19:07 WBC RBC Hgb Hct MCV MCH MCHC RDW Plt Count MPV Immature Gran % (Auto) Neut % (Auto) Lymph % (Auto) Mathews % (Auto) Eos % (Auto) Baso % (Auto) Lymph # (Auto) Mathews # (Auto) Eos # (Auto) Baso # (Auto) Abs Immat Gran (auto) Absolute Neuts (auto) Absolute Nucleated RBC Nucleated RBC % (auto) PT INR APTT Fibrinogen VBG pH 7.10 L* VBG pCO2 63 VBG pO2 50 VBG HCO3 20 L VBG O2 Saturation 85.0 VBG Base Excess -8.9 Sodium 146 H Potassium 3.7 D Chloride 113 H Carbon Dioxide 23 Anion Gap 14 BUN 103 H Creatinine 3.84 H Estim Creat Clear Calc 22.1 Estimated GFR 16 POC Glucose Random Glucose 176 H Lactic Acid 1.6 Calcium 7.9 L Total Bilirubin Direct Bilirubin AST ALT Alkaline Phosphatase Total Protein Albumin Blood Type Antibody Screen Crossmatch 07/25/22 19:18 WBC RBC Hgb Hct MCV MCH MCHC RDW Plt Count MPV Immature Gran % (Auto) Neut % (Auto) Lymph % (Auto) Mathews % (Auto) Eos % (Auto) Baso % (Auto) Lymph # (Auto) Mathews # (Auto) Eos # (Auto) Baso # (Auto) Abs Immat Gran (auto) Absolute Neuts (auto) Absolute Nucleated RBC Nucleated RBC % (auto) PT INR APTT Fibrinogen VBG pH 6.98 L* VBG pCO2 88 VBG pO2 55 VBG HCO3 21 L VBG O2 Saturation 85.0 VBG Base Excess -10.4 Sodium Potassium Chloride Carbon Dioxide Anion Gap BUN Creatinine Estim Creat Clear Calc Estimated GFR POC Glucose Random Glucose Lactic Acid Calcium Total Bilirubin Direct Bilirubin AST ALT Alkaline Phosphatase Total Protein Albumin Blood Type Antibody Screen Crossmatch Discharge Plan Discharge Date/Time: 07/25/22 19:50 Anticipated Discharge Date/Time: 07/25/22 21:53 Patient Disposition: Discharge Diagnosis: Multiorgan failure due to Hepatorenal Syndrome Referrals: Maren Carvajal MD [Primary Care Provider] - 1 Week Discharge Medications: No Action folic acid 1 mg tablet 1 mg PO DAILY Qty: 90 2RF thiamine HCl (vitamin B1) 100 mg tablet 100 mg PO DAILY Qty: 90 2RF sodium chloride 1,000 mg tablet,soluble 1,000 mg PO DAILY Qty: 30 0RF lactulose 10 gram/15 mL solution 30 ml PO BID Qty: 473 2RF insulin lispro 100 unit/mL Insulin Pen 0 sliding scale dose SUBCUT TIDAC Protocol: Insulin Correction Scale Less than or equal to 110 ---- Give (units): 0 111 to 150 Give (units): 0 151 to 200 Give (units): 2 201 to 250 Give (units): 4 251 to 300 Give (units): 6 301 to 350 Give (units): 8 Greater than 350 Give (units): 10 Call MD if Blood Glucose > : 350 Xifaxan 550 mg Tablet 550 mg PO BID Qty: 60 0RF furosemide 20 mg Tablet 20 mg PO DAILY Qty: 30 0RF Protocol: Hold for SBP< HOLD for SBP < : 90 metformin 1,000 mg tablet 1 tab PO BIDAC omeprazole 20 mg capsule,delayed release(DR/EC) 20 mg PO DAILY@0630 melatonin 3 mg Tablet 6 mg PO BEDTIME midodrine 5 mg tablet 5 mg PO TID@0900,1300,1700 Rx Instructions: do not give last dose of day after 6PM or within 4 hrs of bedtime Discharge Orders: Discharge Order (Routine); Ordered 07/25/22 Ordered By: Robinson Chang Discharge Date/Time: 07/25/22 22:55
== END 2022-07-25 22:55 | disposition expired | DRG 279 ==
LOC: HO.ED 15:20 → HO.EDOVER 15:21 → HO.ICU 15:40
PROVIDERS: Internal Medicine Cardiovascular Disease; Internal Medicine Gastroenterology; Physician Assistant; Physician Assistant Medical; Admitting Provider Internal Medicine Pulmonary Disease; Emergency Provider Emergency Medicine; PCP Internal Medicine; Visit Provider Internal Medicine Pulmonary Disease
PROC: 0DJ08ZZ Inspection of Upper Intestinal Tract, Via Natural or Artificial Opening Endoscopic (ICD-10-PCS; CPT 43235; principal; 2022-07-24 13:50)
DX: K76.7 Hepatorenal syndrome (principal); D65 Disseminated intravascular coagulation [defibrination syndrome]; N17.9 Acute kidney failure, unspecified; K26.4 Chronic or unspecified duodenal ulcer with hemorrhage; J80 Acute respiratory distress syndrome; D61.818 Other pancytopenia; D68.4 Acquired coagulation factor deficiency; K72.10 Chronic hepatic failure without coma; E87.1 Hypo-osmolality and hyponatremia; D63.1 Anemia in chronic kidney disease; E87.4 Mixed disorder of acid-base balance; N18.4 Chronic kidney disease, stage 4 (severe); K76.6 Portal hypertension; E11.22 Type 2 diabetes mellitus with diabetic chronic kidney disease; E87.70 Fluid overload, unspecified; E87.5 Hyperkalemia; E11.42 Type 2 diabetes mellitus with diabetic polyneuropathy; K70.31 Alcoholic cirrhosis of liver with ascites; I12.9 Hypertensive chronic kidney disease with stage 1 through stage 4 chronic kidney disease, or unspecified chronic kidney disease; Z66 Do not resuscitate; K80.20 Calculus of gallbladder without cholecystitis without obstruction; K31.89 Other diseases of stomach and duodenum; F10.21 Alcohol dependence, in remission; K59.00 Constipation, unspecified; N39.0 Urinary tract infection, site not specified; Z51.5 Encounter for palliative care; Z20.822 Contact with and (suspected) exposure to COVID-19; Z88.5 Allergy status to narcotic agent; Z88.6 Allergy status to analgesic agent; Z79.4 Long term (current) use of insulin; Z79.84 Long term (current) use of oral hypoglycemic drugs; Z79.899 Other long term (current) drug therapy
CPT/HCPCS: 36415; 71045; 74176; 76705; 80048; 80053; 80076; 81001; 82140; 82248; 82272; 82803; 82947; 83605; 83615; 83690; 83735; 83880; 84100; 84300; 84484; 85007; 85025; 85027; 85384; 85610; 85730; 86850; 86880; 86900; 86901; 86920; 86923; 87040; 87086; 87088; 87635; 93005; 94660; 99285; C1758; J0171; J0456; J1940; J2185; J2250; J2354; J2543; J2597; J3010; J3411; J3430; P9012; P9016; P9017; P9047; P9073